=== PATIENT | female | born 1965 | race Caucasian/White ===

== ENCOUNTER 2021-10-14 08:20 | Outpatient (CLI) | payer MEDICARE, BC, SELFPAY ==
--- NOTE | 2021-10-14 10:58 | W.ANESCHARGE ---
Anesthesia Charges Start Date/Time Anesthesia Start Date: 10/14/21 Anesthesia Start Time: 10:08 Stop Date/Time Anesthesia Stop Date: 10/14/21 Anesthesia Stop Time: 10:55 Summary Emergency: No
--- NOTE | 2021-10-14 11:23 | W.ANESCHARGE ---
Anesthesia Charges Start Date/Time Anesthesia Start Date: 10/14/21 Anesthesia Start Time: 10:08 Stop Date/Time Anesthesia Stop Date: 10/14/21 Anesthesia Stop Time: 10:55 Summary Emergency: No
== END 2021-10-14 08:21 | disposition home or self-care (01) ==
LOC: OP CLINIC 08:21
PROVIDERS: Visit Provider Internal Medicine Gastroenterology
DX: K52.9 Noninfective gastroenteritis and colitis, unspecified (principal); R19.7 Diarrhea, unspecified; Z86.010 Personal history of colon polyps
CPT/HCPCS: 00813; 43239; 45380; 88305; J1642; J2704

== ENCOUNTER 2023-07-11 19:15 | Emergency (ER) | payer MEDICARE, BC, SELFPAY ==
[2023-07-11] VITALS (35 sets, daily range): BP systolic 88–157; BP diastolic 51–92; PULSE 87–101; RESP 16–18; TEMP 37.2–37.9; O2SAT 91–98; BMI 17.3
--- NOTE | 2023-07-11 19:35 | ED_ITS ---
HPI - General Adult General Time Seen by Provider: 19:35 Date Seen: 07/11/23 Chief complaint: Hypotension Stated complaint: blood pressure; severe fatigue Time Seen by Provider: 07/11/23 19:34 Source: patient, RN notes reviewed and old records reviewed Mode of arrival: ambulatory Limitations: no limitations History of Present Illness HPI narrative: This 57-year-old female presents with her for low blood pressure and weakness. She is status post kidney and pancreas transplant [address] [facility]. She states she is no longer being followed at the [facility]. She is getting her care through [facility]. She states about 3 weeks ago she was hospitalized at [facility], had EGD and colonoscopy, required blood transfusion for anemia. She states they did not find any source of bleeding. She states she was supposed to get a capsule endoscopy and has not heard from anyone. She has no appetite, has difficulty eating. She gags when she attempts to eat. She can eat sometimes small things are small amounts but overall isn't eating. She is no longer ambulatory, basically is in a wheelchair is extremely weak. She has severe peripheral neuropathy. Looking back in our records, I saw her on 05/10/2014. She was sent in by the [facility] for hypokalemia, was also found to be hypomagnesemic that night. At that time, she was suffering from autonomic neuropathy and hypotension, was getting daily normal saline transfusions. They state that they came here just to start somewhere, need to figure things out. She is cold but not having fevers. She does note some intermittent diarrhea, will depend on what she eats. The protein shakes that she take certainly do give her diarrhea. No respiratory symptoms, has some mild baseline cough but is certainly not worse. She did have colonoscopy here on 10/14/[address] De Jesus for chronic diarrhea, history of colon polyps, fecal incontinence. There were no acute findings at the time of the colonoscopy, biopsies showed normal colonic mucosa. She is no longer on Coumadin, takes Eliquis. Related Data Home Medications Medication Instructions Recorded Confirmed bupropion HCl 150 mg 24 hr tablet, 150 mg PO DAILY 07/14/22 07/11/23 extended release (Wellbutrin XL) cholecalciferol (vitamin D3) 25 25 mcg PO DAILY 07/14/22 07/14/22 mcg (1,000 unit) capsule cholestyramine (with sugar) 4 gram ea PO 07/14/22 oral powder (Questran) citalopram 20 mg tablet (Celexa) 20 mg PO DAILY 07/14/22 07/14/22 cyanocobalamin (vitamin B-12) 1,000 mcg PO DAILY 07/14/22 07/14/22 1,000 mcg capsule gabapentin 300 mg capsule 600 mg PO BID 07/14/22 07/11/23 svksdd-ipkjajdb-wlasrbm 2 cap PO Q8H 07/14/22 07/14/22 12,000-38,000-60,000 unit capsule,delayed rel (Creon) ondansetron 4 mg disintegrating 4 mg PO Q8H PRN 07/14/22 07/14/22 tablet pantoprazole 40 mg tablet,delayed 40 mg PO DAILY 07/14/22 07/11/23 release prednisone 5 mg tablet 30 mg PO DAILY 07/14/22 07/14/22 rosuvastatin 40 mg tablet 40 mg PO DAILY 07/14/22 07/11/23 sirolimus 0.5 mg tablet 0.5 mg PO DAILY 07/14/22 07/14/22 sirolimus 1 mg tablet 2 mg PO DAILY 07/14/22 07/11/23 tacrolimus 0.5 mg capsule, 0.5 mg PO BID 07/14/22 07/11/23 immediate-release (Prograf) tacrolimus 1 mg capsule, 2 mg PO Q12H 07/14/22 07/11/23 immediate-release (Prograf) topiramate 50 mg tablet (Topamax) 50 mg PO BID 07/14/22 07/11/23 warfarin 5 mg tablet (Jantoven) 5 mg PO DAILY 07/14/22 07/11/23 droxidopa 300 mg capsule 600 mg PO TID 07/11/23 07/11/23 Allergies Allergy/AdvReac Type Severity Reaction Status Date / Time hydromorphone [From Dilaudid] Allergy Mild Unknown Verified 10/14/21 13:59 Review of Systems Status of ROS: Reports: 6 or more systems reviewed and unremarkable except as noted in History and below [facility] Medical History Chronic kidney disease, stage 4 (severe) ?N18.4 - Chronic kidney disease, stage 4 (severe) (ICD-10) Diabetic ulcer of left heel associated with type 2 diabetes mellitus, with fat layer exposed ?E11.621 - Type 2 diabetes mellitus with foot ulcer (ICD-10) ?L97.422 - Non-pressure chronic ulcer of left heel and midfoot with fat layer exposed (ICD-10) Other autoimmune hemolytic anemia ?D59.19 - Other autoimmune hemolytic anemia (ICD-10) Adrenal insufficiency ?E27.40 - Unspecified adrenocortical insufficiency (ICD-10) Neurogenic orthostatic hypotension ?G90.3 - Multi-system degeneration of the autonomic nervous system (ICD-10) Acute respiratory failure with hypoxia ?J96.01 - Acute respiratory failure with hypoxia (ICD-10) Anticoagulation monitoring, INR range 2-3 ?Z79.01 - residential (current) use of anticoagulants (ICD-10) DVT of deep femoral vein ?I82.419 - Acute embolism and thrombosis of unspecified femoral vein (ICD-10) Hemolytic anemia ?D58.9 - Hereditary hemolytic anemia, unspecified (ICD-10) Acute on chronic diastolic (congestive) heart failure ?I50.33 - Acute on chronic diastolic (congestive) heart failure (ICD-10) CAD (coronary artery disease) ?I25.10 - Atherosclerotic heart disease of [place] coronary artery without angina pectoris (ICD-10) Insomnia, unspecified ?G47.00 - Insomnia, unspecified (ICD-10) Mixed hyperlipidemia ?E78.2 - Mixed hyperlipidemia (ICD-10) Restless leg syndrome ?G25.81 - Restless legs syndrome (ICD-10) Vitamin D deficiency ?E55.9 - Vitamin D deficiency, unspecified (ICD-10) Hypothyroidism ?E03.9 - Hypothyroidism, unspecified (ICD-10) Depression with anxiety ?F41.8 - Other specified anxiety disorders (ICD-10) GERD (gastroesophageal reflux disease) ?K21.9 - Gastro-esophageal reflux disease without esophagitis (ICD-10) Surgical History Hx of vitrectomy ?Z98.890 - Other specified postprocedural states (ICD-10) Hx of cardiac catheterization ?Z98.890 - Other specified postprocedural states (ICD-10) Hx of hysterectomy ?Z90.710 - Acquired absence of both cervix and uterus (ICD-10) Hx of carpal tunnel repair ?Z98.890 - Other specified postprocedural states (ICD-10) History of incisional hernia repair ?Z98.890 - Other specified postprocedural states (ICD-10) ?Z87.19 - Personal history of other diseases of the digestive system (ICD-10) History of amputation of lesser toe of left foot ?Z89.422 - Acquired absence of other left toe(s) (ICD-10) Status post simultaneous kidney and pancreas transplant ?Z94.0 - Kidney transplant status (ICD-10) ?Z94.83 - Pancreas transplant status (ICD-10) Social History Smoking Status: Former smoker What tobacco products do you use: cigarettes Smoking quit date/years: >15 years ago Do you use any of these nicotine containing products: None Second hand tobacco smoke exposure: No How often do you have a drink containing alcohol: never How often do you have six or more drinks on one occasion: Never AUDIT-C Alcohol total score: 0 Non-prescribed substance use: denies use Caffeine: Yes Are you using contraception or practicing any form of control: No Exam Const: Vital Signs, click to edit/add: Vital Signs - 24 hr 07/11/23 19:27 07/11/23 19:43 07/11/23 20:16 Temperature 99.1 F Pulse Rate Pulse Rate [Pulse Oximeter] 87 Respiratory Rate 16 Blood Pressure 92/51 L Blood Pressure [Ri ght Upper Arm] 88/55 L Pulse Oximetry 97 96 Oxygen Delivery Me thod Room Air Room Air 07/11/23 20:26 07/11/23 20:30 07/11/23 20:32 Temperature Pulse Rate 88 92 92 Pulse Rate [Pulse Oximeter] Respiratory Rate Blood Pressure 105/53 L Blood Pressure [Ri ght Upper Arm] Pulse Oximetry 93 96 96 Oxygen Delivery Me thod 07/11/23 20:33 07/11/23 20:45 07/11/23 20:48 Temperature Pulse Rate 93 95 96 Pulse Rate [Pulse Oximeter] Respiratory Rate 18 Blood Pressure 122/60 Blood Pressure [Ri ght Upper Arm] Pulse Oximetry 96 96 96 Oxygen Delivery Me thod Room Air 07/11/23 21:00 07/11/23 21:01 07/11/23 21:15 Temperature Pulse Rate 97 97 99 Pulse Rate [Pulse Oximeter] Respiratory Rate Blood Pressure 130/57 L Blood Pressure [Ri ght Upper Arm] Pulse Oximetry 93 94 97 Oxygen Delivery Me thod 07/11/23 21:16 07/11/23 21:30 07/11/23 21:32 Temperature Pulse Rate 99 96 97 Pulse Rate [Pulse Oximeter] Respiratory Rate Blood Pressure 142/63 H 134/62 Blood Pressure [Ri ght Upper Arm] Pulse Oximetry 97 95 95 Oxygen Delivery Me thod 07/11/23 21:45 07/11/23 21:47 07/11/23 22:00 Temperature Pulse Rate 92 91 90 Pulse Rate [Pulse Oximeter] Respiratory Rate Blood Pressure 120/56 L Blood Pressure [Ri ght Upper Arm] Pulse Oximetry 92 92 91 Oxygen Delivery Me thod 07/11/23 22:01 07/11/23 22:15 07/11/23 22:17 Temperature Pulse Rate 89 90 90 Pulse Rate [Pulse Oximeter] Respiratory Rate Blood Pressure 121/60 127/60 Blood Pressure [Ri ght Upper Arm] Pulse Oximetry 91 91 92 Oxygen Delivery Me thod 07/11/23 22:20 07/11/23 22:21 07/11/23 22:22 Temperature 100.2 F H Pulse Rate 90 91 91 Pulse Rate [Pulse Oximeter] Respiratory Rate 18 Blood Pressure 122/63 122/63 Blood Pressure [Ri ght Upper Arm] Pulse Oximetry 94 95 94 Oxygen Delivery Me thod 07/11/23 22:30 07/11/23 22:32 07/11/23 22:39 Temperature 99.5 F Pulse Rate 101 H 92 91 Pulse Rate [Pulse Oximeter] Respiratory Rate 18 Blood Pressure 144/73 H 144/74 H Blood Pressure [Ri ght Upper Arm] Pulse Oximetry 95 95 94 Oxygen Delivery Me thod 07/11/23 22:41 07/11/23 22:45 07/11/23 22:47 Temperature Pulse Rate 91 91 92 Pulse Rate [Pulse Oximeter] Respiratory Rate Blood Pressure 144/74 H 143/78 H Blood Pressure [Ri ght Upper Arm] Pulse Oximetry 93 95 95 Oxygen Delivery Me thod 07/11/23 23:00 07/11/23 23:02 07/11/23 23:15 Temperature Pulse Rate 93 93 94 Pulse Rate [Pulse Oximeter] Respiratory Rate Blood Pressure 148/80 H Blood Pressure [Ri ght Upper Arm] Pulse Oximetry 96 96 95 Oxygen Delivery Me thod 07/11/23 23:24 07/11/23 23:33 Temperature 99.0 F 99.0 F Pulse Rate 92 93 Pulse Rate [Pulse Oximeter] Respiratory Rate 18 18 Blood Pressure 155/80 H 157/92 H Blood Pressure [Ri ght Upper Arm] Pulse Oximetry 98 96 Oxygen Delivery Me thod This 57-year-old female was brought back by wheelchair, she is alert, interactive, no apparent distress. Affect is somewhat flat but she does not strike me as depressed. Pupils are equal and round, sclera clear, conjugate gaze. Symmetrical facial function. Oropharynx slightly dry but no abnormality noted of mucosa. Speech is normal. Neck is supple, no adenopathy noted, no thyromegaly masses or nodules. She is able to sit up, lungs are clear, somewhat distant breath sound but overall no wheezing or crackles, no tachypnea. CV regular rate and rhythm, I do not hear murmur, normal S1-S2, no S3-S4. Abdomen is soft, nontender, nondistended, no organomegaly. Her right ankle is larger than her left, it seems to be more thickened and this is not pitting edema. They state that she has problems with lower extremity edema. She has trace pretibial edema left maybe 1+ right at this time on her lower extremities. Documenting provider has reviewed patient's vital signs: yes Course Course ED Course: This 57-year-old female has chronic complex medical history and ongoing problems. Did discuss with them that we are small hospital with out advanced support like they might need. She has long-term history of hypotension, will initiate a L of IV fluids over 2 hours. She also has a history of some congestive heart failure, need to watch how much fluids we give her. I do know she was on Florinef in the past. We certainly will check her hemoglobin, make sure she is not anemic. If she is anemic again, she is already beyond the capacity of what we can provide her here as she has already had an EGD and colonoscopy. We may need to consider transfer if we find significant abnormalities. She very well may have multiple issues that we may not be able to fix. We have discussed this. I can start with full complement of basic labs, guide therapy accordingly. Reevaluation(s) Time of Reevaluation #1: 21:04 Reevaluation #1: Reviewed with her that her hemoglobin is 5.8. Did talk to patient about transfusing red blood cells. I did briefly speak with our hospitalist, her creatinine on June 13 was 0.93. Her hemoglobin was 9.4 at that time. Thus, she has worsening anemia again, acute kidney injury in a transplanted kidney. She is aware that we are going to need transfer. Did have our lab come down to do type and cross for a unit packed red blood cells. Time of Reevaluation #2: 22:28 Reevaluation #2: Patient does have a temperature 100.2? F. she does appear to have some contamination in her urinalysis but there is enough concern for UTI there that I will initiate 1 g IV Rocephin. Will give her some Tylenol for fever control. Awaiting bed placement at [facility]. Her blood pressure has significantly improved just with 1 L IV fluids. Will continue to monitor. Consultations Consultation #1: Did speak with Dr. Rubin the hospitalist from [facility]. She will accept care. Did specifically review with her that there is a listed history of hemolytic anemia. There will likely be a wait to transfer. [facility] has the shortness wait time at this point. Will initiate blood transfusion in the interim if patient is still here. Time: 21:39 Vital Signs Vital signs: Initial Vital Signs Temperature 99.1 F 07/11/23 19:27 Temperature Source Oral 07/11/23 19:27 Pulse Rate 87 07/11/23 19:27 Respiratory Rate 16 07/11/23 19:27 Blood Pressure 88/55 L 07/11/23 19:27 Blood Pressure Mean 66 L 07/11/23 19:27 Blood Pressure Position Supine 07/11/23 19:27 Pulse Oximetry 97 07/11/23 19:27 Oxygen Delivery Method Room Air 07/11/23 19:27 Vital Signs Temperature 99.1 F 07/11/23 19:27 Pulse Rate 87 07/11/23 19:27 Respiratory Rate 16 07/11/23 19:27 Blood Pressure 88/55 L 07/11/23 19:27 Pulse Oximetry 97 07/11/23 19:27 Oxygen Delivery Method Room Air 07/11/23 19:27 Temperature 99.0 F 07/11/23 23:33 Pulse Rate 93 07/11/23 23:33 Respiratory Rate 18 07/11/23 23:33 Blood Pressure 157/92 H 07/11/23 23:33 Pulse Oximetry 96 07/11/23 23:33 Oxygen Delivery Method Room Air 07/11/23 20:48 Medications Administered Medications: Generic Name Dose Route Start Last Admin Trade Name Freq PRN Reason Stop Dose Admin Sodium Chloride 250 ml 07/11/23 21:02 07/11/23 22:20 0.9 % Sodium Chloride 250 Ml IV 07/12/23 23:59 250 ml ONCE PRN Administration Discontinued Medications Generic Name Dose Route Start Last Admin Trade Name Freq PRN Reason Stop Dose Admin Acetaminophen 650 mg 07/11/23 22:29 07/11/23 23:13 Acetaminophen 325 Mg Tablet PO 07/11/23 22:30 650 mg ONCE ONE Administration Sodium Chloride 1,000 mls @ 500 mls/hr 07/11/23 19:44 07/11/23 22:15 0.9 % Sodium Chloride 1000 Ml IV 07/11/23 21:43 Infused .Q2H LAURA Infusion Ceftriaxone Sodium 1 gm/ 100 mls @ 200 mls/hr 07/11/23 22:27 07/11/23 23:14 Sodium Chloride IVPB 07/11/23 22:28 200 mls/hr ONCE ONE Administration Medical Decision Making Lab Data Lab results reviewed: Yes I reviewed the patient's lab results Labs: Lab Results 07/11/23 07/11/23 07/11/23 Range/Units 19:50 20:00 21:07 WBC 13.39 H (4.50-11.00) K/uL RBC 2.15 L (4.00-5.20) m/uL Hgb 5.8 L* (12.0-16.0) gm/dL Hct 18.3 L (33.0-51.0) % MCV 85 (80-100) fL MCH 27 (26-34) pg MCHC 32 (32-36) gm/dL RDW Coeff of Juanjo 18.8 H (11.5-15.5) % Plt Count 261 (140-440) K/uL Neut % (Auto) 79.0 H (42.0-72.0) % Lymph % (Auto) 6.8 L (20-44) % Anson % (Auto) 13.1 H (0.0-11.0) % Eos % (Auto) 0.0 (0.0-7.0) % Baso % (Auto) 0.3 (0.0-3.0) % Neut # (Auto) 10.60 H (1.7-7.0) K/uL Lymph # (Auto) 0.90 (0.90-2.90) K/uL Anson # (Auto) 1.80 H (0.00-0.90) K/UL Eos # (Auto) 0.00 (0.00-0.50) K/uL Baso # (Auto) 0.00 (0.00-0.30) K/uL Abs Immat Gran (auto) 0.10 (0.00-0.30) K/uL Imm/Tot Granulo (auto) 0.8 % Sodium 141 (135-149) mmol/L Potassium 4.2 (3.6-5.1) mmol/L Chloride 113 (96-114) mmol/L Carbon Dioxide 21 (20-32) mmol/L Anion Gap 7 (7-15) mEq/L BUN 49 H (7-30) mg/dL Creatinine 2.1 H (0.5-1.5) mg/dL Estimated Creat Clear 22.65 Estimated GFR 27 ml/min Glucose 97 (60-115) mg/dL Lactate 1.7 (0.5-1.9) mmol/L Calcium 9.4 (8.4-10.6) mg/dL Magnesium 1.9 (1.5-2.6) mg/dL Total Bilirubin 0.7 (0.1-1.5) mg/dL Direct Bilirubin 0.1 (0.0-0.5) mg/dL AST 40 H (12-35) U/L ALT 41 H (4-35) U/L Alkaline Phosphatase 80 (40-150) U/L Troponin I 0.03 (0.01-0.04) ng/mL C-Reactive Protein 17.0 H (0.5-1.0) mg/dL NT-Pro-B Natriuret Pep 4860 pg/mL Total Protein 6.9 (6.0-8.3) g/dL Albumin 3.4 (3.3-5.0) g/dL Lipase 83 (23-300) U/L Procalcitonin 1.78 H (<0.50) ng/mL Urine Color Yellow (Yellow) Urine Appearance Cloudy A (Clear) Urine pH 5.5 (5.0-8.5) Ur Specific [place] 1.025 (1.000-1.030) Urine Protein 3+ A (Negative) Urine Glucose (UA) Negative (Negative) Urine Ketones Trace A (Negative) Urine Blood 1+ A (Negative) Urine Nitrite Negative (Negative) Urine Bilirubin 1+ A (Negative) Urine Urobilinogen 0.2 (0.2-1.0) Ur Leukocyte Esterase 3+ A (Negative) Urine RBC 0-2 (0-2) Urine WBC 50-100 A (0-5) Urine WBC Clumps Few A (None) Ur Squamous Epith Cells Many A (None-Few) Amorphous Sediment Few A (None) Urine Bacteria Many A (None) Blood Type A Negative Antibody Screen NEGATIVE Crossmatch (AHG) See Detail ECG Data Attestation: I personally reviewed and interpreted this ECG as follows: (Normal sinus rhythm, 88 beats per minute. No acute ischemia, no infarct. QT corrected 464 milliseconds.) Prior ECG tracings: not available for review Discharge Plan Discharge Clinical Impression: Acute kidney injury, Status post kidney transplant Anemia Qualifiers: Anemia type: unspecified type Qualified Code(s): D64.9 - Anemia, unspecified UTI (urinary tract infection) Qualifiers: Urinary tract infection type: acute cystitis Hematuria presence: without hematuria Qualified Code(s): N30.00 - Acute cystitis without hematuria Patient Disposition: [facility] Discharge Location: [facility]
[2023-07-11 20:06] LABS: Basophils Percent Auto 0.3 % (0.0-3.0); Hematocrit 18.3 % (33.0-51.0); Immature Granulocytes Pct Auto 0.8 %; Lactate* 1.7 mmol/L (0.5-1.9); Lymphocytes Percent Auto 6.8 % (20-44); Mean Corpuscular HGB Conc 32 gm/dL (32-36); Mean Corpuscular Hemoglobin 27 pg (26-34); Mean Corpuscular Volume 85 fL (80-100); Monocytes Percent Auto 13.1 % (0.0-11.0); Platelet Count* 261 K/uL (140-440); RDW Coefficient of Variation % 18.8 % (11.5-15.5); Red Blood Count 2.15 m/uL (4.00-5.20); White Blood Count* 13.39 K/uL (4.50-11.00)
[2023-07-11] MEDS: 0.9 % SODIUM CHLORIDE 1000 ml 1,000 ML 500 ML IV (20:15)
[2023-07-11 20:16] LABS: Appearance Urine Cloudy (Clear); Bilirubin Urine 1+ (Negative); Blood Urine 1+ (Negative); Color Urine Yellow (Yellow); Glucose Urine Negative (Negative); Ketones Urine Trace (Negative); Leukocyte Esterase Urine 3+ (Negative); Nitrite Urine Negative (Negative); Protein Urine 3+ (Negative); Specific Gravity Urine 1.025 (1.000-1.030); Urobilinogen Urine 0.2 (0.2-1.0); pH Urine 5.5 (5.0-8.5)
--- OUTSIDE RECORDS SUMMARY | 2023-07-11 20:26 | XMS_ITS | Data Portability ---
Author Name Unknown Address [address] [place] [address] Phone [phone] Organization [facility], _[place] Address [address] [facility] [address] [place] [address] Assessment No assessment recorded. Plan of Treatment Reminders Order Date Submit Date Provider Last Modified By Organization Details Last Modified Time Details Appointments None recorded. Lab urinalysis, dipstick 2022 023 [id number] [facility], [facility]5 [facility], [address], [address], 16:11:55 Referral None recorded. Procedures None recorded. Surgeries None recorded. Imaging None recorded. Medication Orders sulfamethox azole 400 mg-trimetho prim 80 mg tablet 2022 023 [facility], [address] [place], [place], [id number], 17:27:36 Patient TargetsNo targets recorded. Patient InstructionsNo instructions recorded. Reason for Referral None Reported. Results Created Date Observation Date Name Description Value Unit Range Abnormal Flag LastModifiedBy Organization Detail LastModifiedTime 11/25/1911/24/2022 urina lysis , dipst ick Color-Status Dark Yellow Not Available [place] [id number] [facility] [address], [address], 11/24/2022 16:10:18 11/25/19 23 11/24/2022 urina lysis , dipst ick Clarity-Stat us Clear Not Available [address], [place], [address], 11/24/2022 16:10:18 11/25/19 23 11/24/2022 urina lysis , dipst ick Glucose-Stat us Negati ve Not Available [address], [place], [address], 11/24/2022 16:10:18 11/25/19 23 11/24/2022 urina lysis , dipst ick Bilirubin-St atus Negati ve Not Available [address], [place], [address], 11/24/2022 16:10:18 11/25/19 23 11/24/2022 urina lysis , dipst ick Ketones-Stat us Negati ve Not Available [address], [place], [address], 11/24/2022 16:10:18 11/25/19 23 11/24/2022 urina lysis , dipst ick Sp [place]-Stat us >=1.03 0 Not Available [address], [place], [address], 11/24/2022 16:10:18 11/25/19 23 11/24/2022 urina lysis , dipst ick pH-Status 5.5 Not Available [address], [place], [address], 11/24/2022 16:10:18 11/25/19 23 11/24/2022 urina lysis , dipst ick Protein-Stat us >=9.0 Not Available [address], [place], [address], 11/24/2022 16:10:18 11/25/19 23 11/24/2022 urina lysis , dipst ick Urobilinogen -Status 0.2 Not Available [address], [place], [address], 11/24/2022 16:10:18 11/25/19 23 11/24/2022 urina lysis , dipst ick Nitrates-Sta tus negati ve Not Available [address], [place], [address], 11/24/2022 16:10:18 11/25/19 23 11/24/2022 urina lysis , dipst ick Blood-Status Trace Not Available [address], [place], [address], 11/24/2022 16:10:18 11/21/19 23 08/23/2022 CT, abdom en + pelvi s, w/o contr ast No observ ation record ed. Not Available 11/20/2022 10:59:26 12/20/19 23 11/24/2022 bladd er scan (PROC ) No observ ation record ed. BARCODE Not Available 12/19/2022 09:38:29 Result Notes None recorded. Problems Name Status Onset Date Resolution Date Notes Provider Name and Address Organization Details Recorded Time Recurrent urinary tract infection Active 3 Samson Bridges MD [address] [facility],[address], [place], [address], [facility] 11/24/2022 17:33:45 Problem Notes None recorded. Procedures Surgical History Date Name Laterality Status Provider Name and Address Organization Details Recorded Time Bladder Scan completed Chelsey alvarez [facility] 11/24/2022 16:10:10 Hernia Repair completed Chelsey alvarez [facility] 11/24/2022 16:09:08 Colonoscopy completed Chelsey alvarez [facility] 11/24/2022 16:09:18 Imaging Results Imaging Date Name Status LastModified by Organiz ation Details LastModified Time 08/23/2022 CT, abdomen + pelvis, w/o contrast completed Information not available 11/20/2022 10:59:26 11/24/2022 bladder scan (PROC) completed BARCODE Information not available 12/19/2022 09:38:29 Procedure Notes None recorded. Medical Equipment None Reported. Allergies No known drug allergies Medications Name Sig Start Date Stop Date Status Note LastModified by Organization Details LastModified Time amoxicillin 500 mg capsule 11/24 completed Not Available Not Available Not Available sulfamethoxa zole 400 mg-trimethop rim 80 mg tablet Take 1 tablet every day by oral route. active Not Available Not Available No t Available valacyclovir 1 gram tablet active Not Available Not Available Not Available prednisone 5 mg tablet 11/24 completed Not Available Not Available Not Available sulfamethoxa zole 800 mg-trimethop rim 160 mg tablet 11/24 completed Not Available Not Available Not Available acetaminophe n 500 mg tablet 11/24 completed Not Available Not Available Not Available amoxicillin 500 mg tablet TAKE 2 TABLETS BY MOUTH TWICE DAILY FOR 10 DAYS 11/24 completed Not Available Not Available Not Available sirolimus 1 mg tablet active Not Available Not Available No t Available colesevelam 625 mg tablet active Not Available Not Available Not Available doxycycline monohydrate 100 mg capsule 11/24 completed Not Available Not Available Not Available cephalexin 500 mg capsule 11/24 completed Not Available Not Available Not Available pantoprazole 40 mg tablet,delay ed release active Not Available Not Available N ot Available prednisone 50 mg tablet 11/24 completed Not Available Not Available Not Available gabapentin 300 mg capsule active Not Available Not Available Not Available cefuroxime axetil 500 mg tablet 11/24 completed Not Available Not Available Not Available levofloxacin 750 mg tablet 11/24 completed Not Available Not Available Not Available ondansetron 4 mg disintegrati ng tablet 11/24 completed Not Available Not Available Not Available tacrolimus 1 mg capsule, immediate-re lease active Not Available Not Available Not Available tacrolimus 0.5 mg capsule, immediate-re lease active Not Available Not Available Not Available oxycodone 5 mg tablet 11/24 completed Not Available Not Available Not Available cholestyrami ne (with sugar) 4 gram oral powder 11/24 completed Not Available Not Available Not Available rosuvastatin 40 mg tablet active Not Available Not Available Not Available bupropion HCl XL 150 mg 24 hr tablet, extended release active Not Available Not Available Not Available Jantoven 5 mg tablet active Not Available Not Available No t Available topiramate 50 mg tablet active Not Available Not Available Not Available nitrofuranto in monohydrate/ macrocrystal s 100 mg capsule 11/24 completed Not Available Not Available Not Available [facility] (diphenhydra mine) 12.5 mg/5 mL oral liquid active Not Available Not Available Not Available Creon 12,000-38,00 0-60,000 unit capsule,isreal yed release 11/24 completed Not Available Not Available Not Available Creon 24,000-76,00 0-120,000 unit capsule,isreal yed release active Not Available Not Available Not Available Senexon-S 8.6 mg-50 mg tablet 11/24 completed Not Available Not Available Not Available sirolimus 0.5 mg tablet active Not Available Not Available Not Available Eliquis 5 mg tablet active Not Available Not Available Not Available droxidopa 300 mg capsule 11/24 completed Not Available Not Available Not Available Zenpep 25,000 unit-79,000 unit-105,000 unit capsule,isreal yed release active Not Available Not Available Not Available Vitals Date Recorded Body height Body mass index (BMI) Body weight Provider Name and Address Organization Details Last Updated DateTime 11/24/2022 167.64 cm 20.7 kg/m2 95873.82 g Chelsey Loaiza [facility] 11/24/2022 16:06:20 Social History Question Answer Notes LastModified by Organizat ion Details LastModified Time Tobacco Smoking Status Former Smoker [facility] [place] 11/24/2022 16:08:53 What Is Your Level Of Alcohol Consumption? None [email or web address] Information not available 11/24/2022 What Is Your Level Of Caffeine Consumption? None [email or web address] Information not available 11/24/2022 When Did You Quit Smoking? 16+yearssin cristina saeed [email or web address] Information not available 11/24/2022 What Was The Date Of Your Most Recent Tobacco Screening? 11/24/2022 [email or web address] Information not available 11/24/2022 Do You Use Any Illicit Or Recreational Drugs? No [email or web address] Information not available 11/24/2022 Has Tobacco Cessation Counseling Been Provided? No [email or web address] Information not available 11/24/2022 Sex: Female Functional Status None recorded. Mental Status None recorded. Family History Relationship Description Onset Age of this Age Resolved Age Notes Father No current problems or disability Mother No current problems or disability Medical History Condition Response Other N High Blood Pressure N Kidney Stones N Depression N Lung Disease N GERD/Acid Reflux N Sexually Transmitted Infection N Cancer N High Cholesterol N Diabetes N Bleeding Disorder N Heart Disease N Gynecological HistoryNo gynecological history recorded. Obstetrics History GPAL:G 0 P 0 0 0 0 Immunizations Vaccine Type Date Status Provider Name and Address Organization Details Recorded Time influenza, injectable, quadrivalent 12/17/2018 completed Tiffany alvarez [facility] 01/20/2023 17:20:22 influenza, recombinant, quadrivalent,injecta ble, preservative free 02[facility]12[facility]2021 [facility] 17:20:22 COVID-19, mRNA, LNP-S, PF, 30 mcg/0.3 mL dose 05/19/2020 completed Tiffany alvarez [facility] 01/20/2023 17:20:22 COVID-19, mRNA, LNP-S, PF, 30 mcg/0.3 mL dose 06/09/2020 completed Tiffany alvarez [facility] 01/20/2023 17:20:22 COVID-19, mRNA, LNP-S, PF, 30 mcg/0.3 mL dose 02/12/2021 completed Tiffany alvarez [facility] 01/20/2023 17:20:22 pneumococcal conjugate PCV 7 12/16/2004 [facility] 17:20:22 pneumococcal polysaccharide PPV23 07/07/2012 completed Tiffany Montgomeryre null, [facility] 01/20/2023 17:20:22 pneumococcal polysaccharide PPV23 10/02/2011 completed Tiffany Montgomeryre null, [facility] 01/20/2023 17:20:22 Tdap 04/08/2019 completed Tiffany Robb null, [facility] 01/20/2023 17:20:23 Tdap 05/22/2014 completed Tiffany Montgomeryre null, [facility] 01/20/2023 17:20:23 Pneumococcal conjugate PCV 13 10/03/2015 completed Tiffany Robb null, [facility] 01/20/2023 17:20:23 Influenza, seasonal, injectable 04/30/2012 completed Tiffany Robb null, [facility] 01/20/2023 17:20:23 Influenza, seasonal, injectable 12/02/2006 [facility] 17:20:23 Influenza, seasonal, injectable 01/11/1999 [facility] 17:20:23 Novel [id number] 01/11/2009 [facility] 17:20:23 Td (adult), 2 Lf tetanus toxoid, preservative free, adsorbed 09/23/2002 [facility] 17:20:23 Hib (PRP-T) 10/03/2015 [facility] 17:20:23 influenza, injectable, quadrivalent, preservative free 03/12/2020 [facility] 17:20:23 influenza, injectable, quadrivalent, preservative free 01/21/2022 [facility] 17:20:23 Past Encounters Encounter ID Performer Location Encounter Start Date Encounter Closed Date Diagnosis/Indication Diagnosis SNOMED-CT Code [id number] Samson Bridges MD [facility] [address] [facility],[address] [place] [address] 11/24/2022 15:54:01 11/28/2022 14:13:38 Recurrent urinary tract infection [id number] Health Concerns Section Related Observation LastModified by Organization Detai ls LastModified Time None Recorded Concern Status LastModified by Organization Details LastModified Time None Recorded Advance Directives Directive None Recorded Payers Encounter Date Sequence Insurance Name Policy Number Policy Lepe Covered Member ID Lepe Member ID Guarantor Name 11/24/2022 1 [place]: [employer] Roxanna Monzon [id number] Roxanna Monzon 11/24/2022 2 [place] Socrates Monzon [id number] Roxanan Monzon Notes Date Note Type Note Provider Name and Address Organization Details Recorded Time 11/24/2022 text/html HPI Notes: New patient referred for recurrent urinary tract infections. 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 She is on sirolimus and tacrolimus. Her buck[place] kidneys are intact. She was having about 1 UTI per year but more recently had several positive cultures in 2021 and 2022. I reviewed the most recent clinic notes from Dr. Marley as well as multiple cultures from the past 2 years showing primarily Klebsiella and E. coli. These appear to be the same strains of bacteria with the same resistance patterns. She had multiple short courses of antibiotics including Bactrim and cefuroxime for 5 to 7 days. I reviewed the most recent CT scan abdomen and pelvis from 08/23/2022 showing atrophic buck[place] kidneys with extensive vascular calcifications but no stones or obstruction. Her transplanted kidney in the left pelvis appears normal with no hydronephrosis. Bladder appears large volume but bladder scan today shows that she empties completely. Urinalysis today trace blood, otherwise negative. Her primary UTI symptoms have been frequency, urgency and dysuria but she is not symptomatic at the time, having recently completed another course of antibiotics. Samson Bridges MD [address] [facility],[address], [place], [address], [facility] 11/24/2022 17:34:18 OBGyn Episode No OBEpisode recorded.
[2023-07-11 20:28] LABS: Albumin* 3.4 g/dL (3.3-5.0); Chloride* 113 mmol/L (96-114)
[2023-07-11 20:29] LABS: Potassium* 4.2 mmol/L (3.6-5.1); Sodium* 141 mmol/L (135-149)
[2023-07-11 20:31] LABS: Anion Gap 7 mEq/L (7-15); Aspartate Amino Transferase* 40 U/L (12-35); Bilirubin Direct* 0.1 mg/dL (0.0-0.5); Bilirubin Total* 0.7 mg/dL (0.1-1.5); Carbon Dioxide* 21 mmol/L (20-32); Creatinine* 2.1 mg/dL (0.5-1.5); Est. Creatinine Clearance* 22.65; Estimated Glomerular Filt Rate 27 ml/min
[2023-07-11 20:32] LABS: Alanine Aminotransferase* 41 U/L (4-35); Alkaline Phosphatase* 80 U/L (40-150); Blood Urea Nitrogen* 49 mg/dL (7-30); Calcium* 9.4 mg/dL (8.4-10.6); Glucose* 97 mg/dL (60-115); Lipase* 83 U/L (23-300); Magnesium* 1.9 mg/dL (1.5-2.6); Total Protein* 6.9 g/dL (6.0-8.3)
[2023-07-11 20:37] LABS: RBC Urine 0-2 (0-2); WBC Urine 50-100 (0-5)
[2023-07-11 20:38] LABS: Amorphous Sediment Urine Few; Bacteria Urine Many; Squamous Epithelial Cell Urine Many (None-Few); WBC Clumps Urine Few
[2023-07-11 20:44] LABS: Troponin I* 0.03 ng/mL (0.01-0.04)
[2023-07-11 20:49] LABS: Procalcitonin* 1.78 ng/mL (<0.50)
[2023-07-11 21:10] LABS: NT Pro B Type NatriureticPept* 4860 pg/mL
[2023-07-11 21:23] LABS: Hemoglobin* 5.8 gm/dL (12.0-16.0); Slide Review Reflex No
[2023-07-11] MEDS: 0.9 % SODIUM CHLORIDE 250 ml IV (22:20)
[2023-07-11] MEDS: ACETAMINOPHEN 325 MG TABLET 650 MG PO (23:13)
[2023-07-11] MEDS: cefTRIAXone 1 GM in 0.9 % SODIUM CHLORIDE Mini-bag 100 ML IVPB (23:14)
--- NOTE | 2023-07-12 10:39 | ED.NURSE ---
Received results from lab: blood culture, anaerobic bottle: gram negative rods. Yumi Turpin RN notified of results at [phone].
--- NOTE | 2023-07-12 12:06 | ED.NURSE ---
Yumi Turpin RN notified of second set of blood cultures, anaerobic bottle also resulted with gram negative rods.
== END 2023-07-11 23:42 | disposition short-term general hospital (02) ==
PROVIDERS: Emergency Provider Family Medicine; PCP Family Medicine
DX: D64.9 Anemia, unspecified (principal); N30.00 Acute cystitis without hematuria; N17.9 Acute kidney failure, unspecified
CPT/HCPCS: 36415; 36430; 80053; 81001; 82248; 83605; 83690; 83735; 83880; 84145; 84484; 85025; 86140; 86850; 86900; 86901; 86922; 87040; 87086; 87186; 93005; 94761; 96365; 99284; 99285; A9270; J0696; J7030; J7050; P9016

== ENCOUNTER 2023-07-11 23:17 | Outpatient (CLI) | payer MEDICARE, BC, SELFPAY | END 2023-07-11 23:18 | disposition home or self-care (01) | LOC: AMB 07-12 06:28 | PROVIDERS: PCP Family Medicine; Visit Provider Family Medicine | DX: N30.00 Acute cystitis without hematuria (principal); D64.9 Anemia, unspecified; N17.9 Acute kidney failure, unspecified; Z94.0 Kidney transplant status | CPT/HCPCS: A0425; A0427 ==

== ENCOUNTER 2023-09-25 10:00 | Outpatient (RCR) | payer MEDICARE, BC, SELFPAY ==
[2023-08-25 10:40] VITALS: BP 98/50; PULSE 81; RESP 16; TEMP 36.6; O2SAT 98
[2023-08-25 11:14] VITALS: BP 98/50; PULSE 81; RESP 16; TEMP 36.6; O2SAT 98
[2023-08-25 11:39] VITALS: BP 94/55; PULSE 83; RESP 14; TEMP 36.7; O2SAT 98
[2023-08-25 12:24] VITALS: BP 118/69; PULSE 76; RESP 16; TEMP 36.9; O2SAT 98
[2023-08-25 13:12] VITALS: BP 127/72; PULSE 78; RESP 16; TEMP 36.9; O2SAT 99
[2023-08-25 14:22] VITALS: BP 155/66; PULSE 78; RESP 14; TEMP 36.9; O2SAT 98
--- NOTE | 2023-08-31 15:29 | ONC.NURNOTE ---
Received call from pt asking for a blood transfusion, citing Hgb 7.5 at [facility] visit today and she is going out of town over the holiday later this week. Gasket Winder [facility]Erica reviewed with pt that no transfusion unless under 7.0; Dr. Anne wants to watch the trend of her Hgb and is planning a Bone Marrow Bx soon. Pt to have labs rechecked next week. Verbalizes understanding.
[2023-09-02 09:16] VITALS: BP 84/44; PULSE 76; RESP 16; TEMP 37.2; O2SAT 98
[2023-09-02 09:34] VITALS: BP 84/44; PULSE 76; RESP 16; TEMP 37.2; O2SAT 98
[2023-09-02] MEDS: 0.9 % SODIUM CHLORIDE 250 ml IV (09:38)
[2023-09-02] MEDS: SODIUM CHLORIDE 0.9 % (FLUSH) 10 ML SYRINGE IVF (09:38)
[2023-09-02 09:51] VITALS: BP 121/61; PULSE 75; RESP 16; TEMP 37.2; O2SAT 98
[2023-09-02 10:35] VITALS: BP 126/68; PULSE 75; RESP 16; TEMP 37.2; O2SAT 99
[2023-09-02 11:27] VITALS: BP 156/78; PULSE 75; RESP 16; TEMP 36.5; O2SAT 98
[2023-09-02 12:33] VITALS: BP 157/82; PULSE 77; RESP 16; TEMP 37; O2SAT 96
[2023-09-16] MEDS: SODIUM CHLORIDE 0.9 % (FLUSH) 10 ML SYRINGE IVF (08:15)
[2023-09-16] MEDS: 0.9 % SODIUM CHLORIDE 250 ml IV (08:15)
[2023-09-16 08:16] VITALS: BP 134/66; PULSE 83; RESP 16; TEMP 36.9; O2SAT 98
[2023-09-16 08:32] VITALS: BP 134/66; PULSE 83; RESP 16; TEMP 36.9; O2SAT 98
[2023-09-16 08:50] VITALS: BP 125/64; PULSE 79; RESP 16; TEMP 37.3; O2SAT 98
[2023-09-16 09:35] VITALS: BP 170/80; PULSE 84; RESP 16; TEMP 37.3; O2SAT 98
--- NOTE | 2023-09-16 09:57 | ONC.NURNOTE ---
Blood pressure increased from 134/66 start of infusion to 170/80 1 hour into infusion. Patient denies headache, blurred vision, shortness of breath, rigors, fever, back pain. All other vitals within normal limits. Patient stated My blood pressure always goes up with the transfusion. Contacted SONIA Maldonado at [facility] to let her know what patients blood pressure is currently. Okay to continue with transfusion and will discuss with Liliya Vizcaino CNP and let us know if we should do anything else at this time. Reflexologist requested standing order that states okay to proceed with transfusion if no other symptoms accompany the increase in Blood Pressure during Blood transfusion.
[2023-09-16 10:18] VITALS: BP 180/80; PULSE 85; RESP 16; TEMP 37.2; O2SAT 98
--- NOTE | 2023-09-16 10:36 | ONC.NURNOTE ---
Recieved a standing order from Dr. Anne stating Ok to proceed with blood transfusion with hypertension as long as patient is not having symptoms. Continued monitoring. Please run transfusion at a slower rate that 2 hours per unit. Patient denies symptoms to accompany the high BP.
[2023-09-16 11:18] VITALS: BP 166/70; PULSE 83; RESP 16; TEMP 37.6; O2SAT 97
[2023-09-25] VITALS (7 sets, daily range): BP systolic 118–168; BP diastolic 60–75; PULSE 78–86; RESP 14–16; TEMP 36.3–37; O2SAT 96–98
== END 2024-02-20 23:59 | disposition home or self-care (01) ==
LOC: CCIC 10:00
PROVIDERS: PCP Family Medicine; Referring Provider Family Medicine; Visit Provider Clinical Nurse Specialist
DX: D61.9 Aplastic anemia, unspecified (principal)
CPT/HCPCS: 36415; 36430; 86850; 86900; 86901; 86922; J7050; P9016

== ENCOUNTER 2024-10-13 08:49 | Emergency (ER) | payer MEDICARE, BC, SELFPAY ==
--- OUTSIDE RECORDS SUMMARY | 2024-09-07 09:30 | XMS_ITS | Encounter Summary ---
Author Organization [facility] Address [address] [place] [address] Care Team Providers Care Morgue Librarian Name Role Phone Robert Marley MD Primary Care Provider [phone] Tayo Lacey MD Unavailable [phone] Christopher Quiroga MD Unavailable Lance Simpson-C Unavailable [phone] Sherri Kingston Unavailable [phone] Delvin Bob MD Unavailable Love Hernandez-C Unavailable Love Hernandez-C Unavailable Gordy Nickerson MD Unavailable [phone] Everardo Grant MD Unavailable Rey Billings MD Unavailable [phone] Conrado Evans MD Unavailable [phone] Delvin Lopez MD Unavailable [phone] Reason for Visit * Reason Comments Blood Draw Encounter Details Date Type Department Care Team (Late st Contact Info) Description 09/07/2024 9:30 AM CDT Lab [address] [place] [address] [facility] [place] [address] Conrado Evans MD 717 [facility] 353 [facility] [address] [place] [address] EBV (Patrick-Alcy virus) viremia; Pancreas transplanted (H); Kidney replaced by transplant; Type 1 diabetes mellitus with diabetic polyneuropathy (H) Social History Tobacco Use Types Packs/Day Years Used Date Smoking Tobacco: Former Cigarettes Passive Smoke Exposure: Never Smokeless Tobacco: Never Alcohol Use Standard Drinks/Week Comments No 0 (1 standard drink = 0.6 oz pur e alcohol) PHQ-2 Answer Date Recorded PHQ-2 Score 2 11/16/2023 Adolescent Education Answer Date Record ed Getting School Help Needed Not on file 11/22 Comments No Sex and Gender Information Value Date Recorded Sex Assigned at Not on file Legal Sex Female 3:26 AM CHIPPER Gender Identity Not on file Sexual Orientation Not on file Occupation Industry Job Start Date Job End Date Not on file Not on file Not on file Not on file documented as of this encounter Progress Notes * Yadira Boyle CMA - 09/07/2024 9:30 AM CDT Flatbed Truck Driver Note: Roxanna Monzon presents today for blood draw. Patient seen by provider today: No. Office Copy Selector present during visit today: Not Applicable. Concerns: No Concerns. Procedure: Lab draw site: rt inner forearm, Needle type: butterfly, Gauge: 23. Post Assessment: Labs drawn without difficulty: Yes. Discharge Plan: Departure Mode: Wheelchair. Face to Face Time: 10. Yadira Boyle CMA documented in this encounter Plan of Treatment Upcoming Encounters Date Type Department Care Team (Late st Contact Info) Description 10/25/2024 10:00 AM CDT Virtual Visit 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) Kidney replaced by transplant PATRICK LACY VIRUS QUANTITATIVE PCR, PLASMA Routine 09/07/2024 9:51 AM CDT EBV (Patrick-Lacy virus) viremia TACROLIMUS BY TANDEM MASS SPECTROMETRY Routine 09/07/2024 9:51 AM CDT 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) Kidney replaced by transplant SIROLIMUS BY TANDEM MASS SPECTROMETRY Routine 09/07/2024 9:51 AM CDT 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) Kidney replaced by transplant LIPID REFLEX TO DIRECT LDL PANEL Routine 09/07/2024 9:51 AM CDT 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) Kidney replaced by transplant LIPASE Routine 09/07/2024 9:51 AM CDT 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) Kidney replaced by transplant HEPATIC FUNCTION PANEL Routine 09/07/2024 9:51 AM CDT 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) Kidney replaced by transplant HEMOGLOBIN A1C Routine 09/07/2024 9:51 AM CDT 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) Kidney replaced by transplant Type 1 diabetes mellitus with diabetic polyneuropathy (H) AMYLASE Routine 09/07/2024 9:51 AM CDT 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 The results should be integrated into the clinical context for interpretation. Total Protein Urine mg/mg Creat 2.20(H) 0.00 - 0.20 mg/mg Cr 09/07/2024 11:10 AM CDT LABORATORY Creatinine Urine mg/dL 130.8 mg/dL 09/07/2024 11:10 AM CDT LABORATORY Comment:The reference ranges have not been established in urine creatinine. The results should be integrated into the clinical context for interpretation. Urine URINE SPECIMEN OBTAINED BY CLEAN CATCH PROCEDURE / Unknown Non-blood Collection / Unknown 09/07/2024 9:52 AM CDT 09/07/2024 10:04 AM CDT us Conrado Evans MD LAB - URINE ORDERABLES F inal Result LABORATORY [facility] [address] [facility] Lab (1st floor, no room number) [place] [address], [facility] * (ABNORMAL) Basic metabolic panel (09/07/2024 9:51 AM CDT) Pathologist [facility] Sodium 143 135 - 145 mmol/L 09/07/2024 1:38 PM CDT LABORATORY Potassium 4.5 3.4 - 5.3 mmol/L 09/07/2024 1:38 PM CDT LABORATORY Chloride 109(H) 98 - 107 mmol/L 09/07/2024 1:38 PM CDT LABORATORY Carbon Dioxide (CO2) 19(L) 22 - 29 mmol/L 09/07/2024 1:38 PM CDT [facility] Anion Gap 15 7 - 15 mmol/L 09/07/2024 1:38 PM CDT [facility] Urea Nitrogen 42.2(H) 6.0 - 20.0 mg/dL 09/07/2024 1:38 PM CDT [facility] Creatinine 1.92(H) 0.51 - 0.95 mg/dL 09/07/2024 1:38 PM CDT [facility] GFR Estimate 30(L) >60 mL/min/1.7 3m2 09/07/2024 1:38 PM CDT [facility] Comment:eGFR calculated usin 2020 CKD-EPI equation. Calcium 9.6 8.8 - 10.4 mg/dL 09/07/2024 1:38 PM CDT [facility] Glucose 112(H) 70 - 99 mg/dL 09/07/2024 1:38 PM CDT [facility] Blood STRUCTURE OF RIGHT UPPER LIMB / Unknown Venipuncture / Unknown 09/07/2024 9:51 AM CDT 09/07/2024 10:02 AM CDT Conrado Evans MD LAB - BLOOD ORDERABLES F inal Result [facility] LABORATORY [facility] [address] [facility], no room number) [place] [address] * (ABNORMAL) CBC with platelets (09/07/2024 9:51 AM CDT) WBC Count 4.3 4.0 - 11.0 10e3/uL 09/07/2024 10:07 AM CDT [facility] LAB[facility]AT[facility] RBC Count 4.21 3.80 - 5.20 10e6/uL 09/07/2024 10:07 AM CDT [facility] Hemoglobin 10.9(L) 11.7 - 15.7 g/dL 09/07/2024 10:07 AM CDT [facility] LAB[facility] Hematocrit 36.3 35.0 - 47.0 % 09/07/2024 10:07 AM CDT [facility] LAB[facility] MCV 86 78 - 100 fL 09/07/2024 10:07 AM CDT [facility] LAB[facility]ORY MCH 25.9(L) 26.5 - 33.0 pg 09/07/2024 10:07 AM CDT [facility] MCHC 30.0(L) 31.5 - 36.5 g/dL 09/07/2024 10:07 AM CDT [facility] LAB[facility] RDW 15.4(H) 10.0 - 15.0 % 09/07/2024 10:07 AM CDT [facility] Platelet Count 247 150 - 450 10e3/uL 09/07/2024 10:07 AM CDT [facility] LAB[facility]ATORY Blood BLOOD SPECIMEN / Unknown Venipuncture / Unknown 09/07/2024 9:51 AM CDT 09/07/2024 10:02 AM CDT Conrado Evans MD LAB - BLOOD ORDERABLES F inal Result [facility] [address] Lab (1st floor, no room number) [address] [place] [address] * Amylase (09/07/2024 9:51 AM CDT) Amylase 70 28 - 100 U/L 09/07/2024 10:21 AM CDT [facility] LABORATORY Blood STRUCTURE OF RIGHT UPPER LIMB / Unknown Venipuncture / Unknown 09/07/2024 9:51 AM CDT 09/07/2024 10:02 AM CDT Conrado Evans MD LAB - BLOOD ORDERABLES F inal Result [facility] [address] Lab (1st floor, no room number) [place] [id number] [place] [address] * Tacrolimus by Tandem Mass Spectrometry (09/07/2024 9:51 AM CDT) Tacrolimus by Tandem Mass Spectrometry 6.8 5.0 - 15.0 ug/L 09/07/2024 5:35 PM CDT [facility] Comment: Tacrolimus Reference Range (ug/L): Kidney Transplant: Pediatric 0-3 months post transplant: 10-12 3-6 months post transplant: 8-10 6-12 months post transplant: 6-8 >12 months post transplant: 4-7 Adult 0-6 months post transplant: 8-10 6-12 months post transplant: 6-8 >12 months post transplant: 4-6 >5 years post transplant: 3-5 Heart Transplant: Pediatric 0-12 months post transplant: 10-15 >12 months post transplant: 5-10 Adult 0-3 months post transplant: 10-15 3-6 months post transplant: 8-12 6-12 months post transplant: 6-12 >12 months post transplant: 6-10 Lung Transplant: 0-12 months post transplant: 10-15 >12 months post transplant: 8-12 Liver Transplant: Pediatric 0-3 months post transplant: 10-15 3-6 months post transplant: 8-10 6 months-5 years post transplant: 6-8 >5 years post transplant: 1-3 Adult 0-3 months post transplant: 10-12 3-6 months post transplant: 8-10 >6 months post transplant: 6-8 Pancreas Transplant: 0-6 months post transplant: 8-10 >6 months post transplant: 5-8 Tacrolimus Last Dose Date 09/06/2024 09/07/2024 5:35 PM CDT [facility] Tacrolimus Last Dose Time 8:00 AM 09/07/2024 5:35 PM CDT [facility] Blood STRUCTURE OF RIGHT UPPER LIMB / Unknown Venipuncture / Unknown 09/07/2024 9:51 AM CDT 09/07/2024 10:02 AM CDT Narrative [facility] - 09/07/2024 5:35 PM CDT This test was developed and its performance characteristics determined by the [facility], [facility]. It has not been cleared or approved by the FDA. The laboratory is regulated under CLIA as qualified to perform high-complexity testing. This test is used for clinical purposes. It should not be regarded as investigational or for research. us Conrado Evans MD LAB - BLOOD ORDERABLES F inal Result [facility] [address] [facility], [address] [place] [address], [facility] * Lipase (09/07/2024 9:51 AM CDT) Lipase 33 13 - 60 U/L 09/07/2024 10:21 AM CDT LABORATORY Blood STRUCTURE OF RIGHT UPPER LIMB / Unknown Venipuncture / Unknown 09/07/2024 9:51 AM CDT 09/07/2024 10:02 AM CDT us Conrado Evans MD LAB - BLOOD ORDERABLES F inal Result LABORATORY [facility] [address] [facility] Lab (1st floor, no room number) [place] [address] * Sirolimus by Tandem Mass Spectrometry (09/07/2024 9:51 AM CDT) Sirolimus by Tandem Mass Spectrometry 5.7 5.0 - 15.0 ug/L 09/07/2024 5:33 PM CDT [facility] Comment: Sirolimus Reference Range (ug/L): Kidney Transplant: Adult 6-12 months post transplant: 8-10 >12 months post transplant: 5-8 >5 years post transplant: 4-6 Heart Transplant: 4-10 Lung Transplant: 5-15 Hematopoietic Stem Cell Tx: 3-12 BMT Pediatric 3-12 Sirolimus Last Dose Date 09/07/2024 5:33 PM CDT [facility] Comment:Last dose informatio n not provided. Sirolimus Last Dose Time 09/07/2024 5:33 PM CDT [facility] Comment:Last dose informatio n not provided. Blood STRUCTURE OF RIGHT UPPER LIMB / Unknown Venipuncture / Unknown 09/07/2024 9:51 AM CDT 09/07/2024 10:03 AM CDT Narrative [facility] - 09/07/2024 5:33 PM CDT This test was developed and its performance characteristics determined by the [facility]. It has not been cleared or approved by the FDA. The laboratory is regulated under CLIA as qualified to perform high-complexity testing. This test is used for clinical purposes. It should not be regarded as investigational or for research. us Conrado Evans MD LAB - BLOOD ORDERABLES F inal Result [facility] [address], [address] [place] [address] * Hemoglobin A1c (09/07/2024 9:51 AM CDT) Estimated Average Glucose 105 <117 mg/dL 09/07/2024 10:21 AM CDT [facility] Hemoglobin A1C 5.3 <5.7 % 09/07/2024 10:21 AM CDT [facility] Comment: Normal <5.7% Prediabetes 5.7-6.4% Diabetes 6.5% or higher Note: Adopted from ADA consensus guidelines. Blood STRUCTURE OF RIGHT UPPER LIMB / Unknown Venipuncture / Unknown 09/07/2024 9:51 AM CDT 09/07/2024 10:02 AM CDT us Conrado Evans MD LAB - BLOOD ORDERABLES F inal Result LABORATORY [facility] [address] Lab (1st floor, no room number) [place] [address] * (ABNORMAL) Lipid panel reflex to direct LDL Fasting (09/07/2024 9:51 AM CDT) Cholesterol 158 <200 mg/dL 09/07/2024 2:00 PM CDT [facility] Triglycerides 180(H) <150 mg/dL 09/07/2024 2:00 PM CDT [facility] Direct Measure HDL 58 >=50 mg/dL 09/07/2024 2:00 PM CDT [facility] LDL Cholesterol Calculated 64 <100 mg/dL 09/07/2024 2:00 PM CDT [facility] Comment:LDL calculated using the Friedewald equation. Non HDL Cholesterol 100 <130 mg/dL 09/07/2024 2:00 PM CDT [facility] Patient Fasting > 8hrs? Yes 09/07/2024 2:00 PM CDT [facility] Blood STRUCTURE OF RIGHT UPPER LIMB / Unknown Venipuncture / Unknown 09/07/2024 9:51 AM CDT 09/07/2024 10:02 AM CDT Narrative [facility] - 09/07/2024 2:00 PM CDT Cholesterol Desirable: < 200 mg/dL Borderline High: 200 - 239 mg/dL High: >= 240 mg/dL Triglycerides Normal: < 150 mg/dL Borderline High: 150 - 199 mg/dL High: 200-499 mg/dL Very High: >= 500 mg/dL Direct Measure HDL Female: >= 50 mg/dL Male: >= 40 mg/dL LDL Cholesterol Desirable: < 100 mg/dL Above Desirable: 100 - 129 mg/dL Borderline High: 130 - 159 mg/dL High: 160 - 189 mg/dL Very High: >= 190 mg/dL Non HDL Cholesterol Desirable: < 130 mg/dL Above Desirable: 130 - 159 mg/dL Borderline High: 160 - 189 mg/dL High: 190 - 219 mg/dL Very High: >= 220 mg/dL us Conrado Evans MD LAB - BLOOD ORDERABLES F inal Result [facility] [facility] [address] [facility], [address] [place] [address], [facility] LABORATORY [facility] [address] [facility] Lab (1st floor, no room number) [place] [address] * Patrick Lacy Virus Quantitative PCR, Plasma (09/07/2024 9:51 AM CDT) EBV DNA IU/mL Not Detected Not Detected IU/mL 09/07/2024 5:51 PM CDT [facility] Blood STRUCTURE OF RIGHT UPPER LIMB / Unknown Venipuncture / Unknown 09/07/2024 9:51 AM CDT 09/07/2024 10:02 AM CDT Narrative [facility] - 09/07/2024 5:51 PM CDT The karen EBV assay is an FDA-approved, in vitro nucleic acid amplification test for the quantification of Patrick-Lacy virus (EBV) in human EDTA plasma on the Saritha karen instrument system for automated viral nucleic acid extraction, purification, amplification, and detection of the viral nucleic acid target. Selective amplification of target nucleic acid from the sample is achieved using a dual target virus-specific approach from highly conserved regions of the EBV located in the EBV EBNA-1 gene and the EBV BMRF gene. This test is intended for use as an aid in the management of EBV in transplant patients. In patients undergoing monitoring of EBV, serial DNA measurements can be used to indicate the need for potential treatment changes and to assess response to treatment. The assay is calibrated to the World Health Organization International Standard for EBV DNA. Titer results are reported in International Units (IU)/mL. Conrado Evans MD LAB - MICRO GENERAL ORDEliceo BASSETT Final Result [facility] Inf. Diseases Diag. Lab [address] [facility], [address] [place] [address] * (ABNORMAL) Hepatic panel (09/07/2024 9:51 AM CDT) Protein Total 6.3(L) 6.4 - 8.3 g/dL 09/07/2024 10:21 AM CDT [facility] Albumin 3.4(L) 3.5 - 5.2 g/dL 09/07/2024 10:21 AM CDT [facility] Bilirubin Total 0.2 <=1.2 mg/dL 09/07/2024 10:21 AM CDT [facility] Alkaline Phosphatase 86 40 - 150 U/L 09/07/2024 10:21 AM CDT [facility] AST 38 0 - 45 U/L 09/07/2024 10:21 AM CDT [facility] ALT 23 0 - 50 U/L 09/07/2024 10:21 AM CDT [facility] Bilirubin Direct 0.09 0.00 - 0.30 mg/dL 09/07/2024 10:21 AM CDT [facility] Comment:As of 24, refer ence ranges and trending lines may vary depending on the testing location. 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, not stated as uncontrolled documented in this encounter Additional Health Concerns 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, 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 Parvovirus 07/16/2023 07/16/2023 10/03/2024 4:22 PM CDT Assessment Noted Time PHQ-9 Depression Total Score: 18 023 10:27 AM CHIPPER documented as of this encounter Care Teams Morgue Librarian Relationship Specialty Start Date End Date Robert Marley MD [facility] [address] [place] [address] PCP - General Family Practice 12/08/10 Tayo Lacey MD [facility] [address] [place] [address] Cardiology 08/30/14 Christopher Quiroga MD [facility] [address] [place] [address] Oncology 07/02/16 Lance Simpson PA-C [address] [place] [address] Physician Digital Asset Manager Physician Digital Asset Manager 01/07/18 Sherri Kingston PA [address] [facility] [place] [address] Physician Digital Asset Manager Physician Digital Asset Manager 12/21/18 Delvin Bob MD [address] [place] [address] [address] [place] [address] Internal Medicine 11/11/19 Love Hernandez PA-C [address] [place] [address] [place], [place] [address] Physician Digital Asset Manager Urology 12/01/22 Love Hernandez PA-C [address] [place] [place], [place] [address] Assigned Surgical Provider 01/17/23 [place] [address] [address] [place] [address] Assigned Gastroenterology Provider 07/23/23 Everardo Grant MD [address] [place] [address] Physician Infectious Diseases 09/23/23 Rey Billings MD [address] [place] [address] Assigned Infectious Disease Provider 10/23/23 Conrado Evans MD [address] [facility] [address] [facility] [address] [place] [address] Nephrology 08/25/24 Delvin Lopez MD [address] [place] [address] Nephrology 08/25/24 documented as of this encounter
--- OUTSIDE RECORDS SUMMARY | 2024-09-19 14:00 | XMS_ITS | Encounter Summary ---
Author Organization [facility] Address [address] [place] [address] Care Team Providers Care Human Resources Temp Name Role Phone Robert Marley MD Primary Care Provider [phone] Tayo Lacey MD Unavailable [phone] Christopher Quiroga MD Unavailable Lance Simpson PA-C Unavailable [phone] Sherri Kingston Unavailable [phone] Delvin Bob MD Unavailable [phone] Love Hernandez-C Unavailable [phone] Love Hernandez-C Unavailable Gordy Nickerson MD Unavailable [phone] Everardo Grant MD Unavailable Rey Billings MD Unavailable [phone] Conrado Evans MD Unavailable [phone] Delvin Lopez MD Unavailable [phone] Reason for Visit * Reason Comments Labs Only Blood draw and urine Encounter Details Date Type Department Care Team (Late st Contact Info) Description 09/19/2024 2:00 PM CDT Lab [address] [place] 200 [facility] [place] [phone] Conrado Evans MD 717 [facility] 353 [employer] [address] [place] [address] Kidney replaced by transplant; Aftercare following organ transplant; Proteinuria Social History Tobacco Use Types Packs/Day Years [...] on file Legal 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 Patient seen by provider today: No. 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 Concerns: No Concerns. Procedure: Lab draw site: right forearm, Needle type: butterfly, Gauge: 23. Post Assessment: Labs drawn without difficulty: Yes. Discharge Plan: Departure Mode: Wheelchair. Face to Face Time: 10 minutes. Urine also sent Madiha Mayes MA documented in this encounter Plan of Treatment Upcoming Encounters Date Type Department Care Team (Late st Contact Info) Description 10/25/2024 10:00 AM CDT Virtual Visit [facility] [address] [place] [address] Edith Brito 10/26/2024 8:30 AM CDT Lab [facility] [address] [place] [phone] Conrado Evans MD 710 [facility] 353 [employer] [address] [place] [address] documented as of this encounter Procedures Procedure Name Priority Date/Time Associated Diagnosis Comments PROTEIN ELECTROPHORESIS, SERUM Routine 09/19/2024 2:16 PM CDT Kidney replaced by transplant Aftercare following organ transplant Proteinuria TOTAL PROTEIN, SERUM FOR ELP Routine 09/19/2024 2:16 PM CDT Kidney replaced by transplant Aftercare following organ transplant Proteinuria KAPPA AND LAMBDA LIGHT CHAIN Routine 09/19/2024 2:16 PM CDT Kidney replaced by transplant Aftercare following organ transplant Proteinuria ROUTINE UA WITH MICROSCOPIC REFLEX TO CULTURE Routine 09/19/2024 2:16 PM CDT Kidney replaced by transplant Aftercare following organ transplant Proteinuria TACROLIMUS BY TANDEM MASS SPECTROMETRY Routine 09/19/2024 2:16 PM CDT Kidney replaced by transplant SIROLIMUS BY TANDEM MASS SPECTROMETRY Routine 09/19/2024 2:16 PM CDT Kidney replaced by transplant PROTEIN RANDOM URINE Routine 09/19/2024 2:16 PM CDT Kidney replaced by transplant Aftercare following organ transplant Proteinuria ALBUMIN RANDOM URINE QUANTITATIVE Routine 09/19/2024 2:16 PM CDT Kidney replaced by transplant Aftercare following organ transplant Proteinuria LIPASE Routine 09/19/2024 2:16 PM CDT Kidney replaced by transplant PROTEIN ELECTROPHORESIS Routine 09/20/19 2:16 PM CDT Kidney replaced by transplant Aftercare following organ transplant Proteinuria AMYLASE Routine 09/19/2024 2:16 PM CDT Kidney replaced by transplant BASIC METABOLIC PANEL Routine 09/19/2024 2:16 PM CDT Kidney replaced by transplant CBC WITH PLATELETS Routine 09/19/2024 2: 16 PM CDT Kidney replaced by transplant documented in this encounter Results * (ABNORMAL) Protein Electrophoresis, Serum (09/19/2024 2:16 PM CDT) Albumin 3.2(L) 3.7 - 5.1 g/dL 09/20/2024 4:43 PM CDT [facility] C[facility]/PROT/E NDO Alpha 1 0.4 0.2 - 0.4 g/dL 09/20/2024 4:43 PM CDT [facility] SPECIALTY CORE/PROT/E NDO Alpha 2 0.8 0.5 - 0.9 g/dL 09/20/2024 4:43 PM CDT [facility] CORE/PROT/E NDO Beta Globulin 0.7 0.6 - 1.0 g/dL 09/20/2024 4:43 PM CDT [facility] CORE/PROT/E NDO Gamma Globulin 0.9 0.7 - 1.6 g/dL 09/20/2024 4:43 PM CDT [facility] CORE/PROT/E NDO Monoclonal Peak 0.0 <=0.0 g/dL 09/20/2024 4:43 PM CDT [facility] C[facility]/PROT/E NDO ELP Interpretation Hypoalbuminemia with an otherwise essentially normal electrophoretic pattern. No monoclonal protein seen. Pathologic significance requires clinical correlation. Angelic Warner M.D., Ph.D. 09/20/2024 4:43 PM CDT [facility] CORE/PROT/E NDO Signout Location if Remote [facility] 09/20/2024 4:43 PM CDT [facility] LABS Blood STRUCTURE OF LEFT UPPER LIMB / Unknown Venipuncture / Unknown 09/19/2024 2:16 PM CDT 09/19/2024 2:27 PM CDT us Conrado Evans MD LAB - BLOOD ORDERABLES F inal Result [facility] CORE/PROT/ENDO [facility] Specialty Core/Prot/Endo [address], [address] [place] [address], [facility] UM SPECIALTY LABS [facility] Lab [address], [address] [place] [address], [facility] * (ABNORMAL) Total Protein, Serum for ELP (09/19/2024 2:16 PM CDT) Pathologist [facility] Total Protein Serum for ELP 6.0(L) 6.4 - 8.3 g/dL 09/19/2024 3:06 PM CDT LABORATORY Blood STRUCTURE OF LEFT UPPER LIMB / Unknown Venipuncture / Unknown 09/19/2024 2:16 PM CDT 09/19/2024 2:27 PM CDT us Conrado Evans MD LAB - BLOOD ORDERABLES F inal Result LABORATORY [facility] Lab [address] [facility] Lab (1st floor, no room number) [place] [address], [facility] * (ABNORMAL) [place] and lambda light chain (09/19/2024 2:16 PM CDT) Pathologist [facility] [place] Free Light Chains 9.59(H) 0.33 - 1.94 mg/dL 09/20/2024 8:45 AM CDT SPECIALTY CORE/PROT/ENDO Lambda Free Light Chains 7.83(H) 0.57 - 2.63 mg/dL 09/20/2024 8:45 AM CDT SPECIALTY CORE/PROT/ENDO [place] /Lambda Ratio 1.22 0.26 - 1.65 09/20/2024 8:45 AM CDT SPECIALTY CORE/PROT/ENDO Blood STRUCTURE OF LEFT UPPER LIMB / Unknown Venipuncture / Unknown 09/19/2024 2:16 PM CDT 09/19/2024 2:27 PM CDT Narrative SPECIALTY CORE/PROT/ENDO - 09/20/2024 8:45 AM CDT Undetected antigen excess is a rare event but cannot be excluded. If these free light chain results do not agree with other clinical or laboratory findings, or if the sample is from a patient that has previously demonstrated antigen excess, the result must be checked by retesting at a higher sample dilution. Results should always be interpreted in conjunction with other laboratory tests and clinical evidence; any anomalies should be discussed with the testing laboratory. us Conrado Evans MD LAB - BLOOD ORDERABLES F inal Result SPECIALTY CORE/PROT/ENDO Specialty Core/Prot/Endo [address] [facility] [address] [facility], Room [address] [id number] * (ABNORMAL) Albumin Random Urine Quantitative with Creat Ratio (09/19/2024 2:16 PM CDT) Creatinine Urine mg/dL 140.0 mg/dL 09/19/2024 4:45 PM CDT [facility] Comment:The reference ranges have not been established in urine creatinine. The results should be integrated into the clinical context for interpretation. Albumin Urine mg/L 1,627.0 mg/L 2024 4:45 PM CDT [facility] Comment:The reference ranges have not been established in urine albumin. The results should be integrated into the clinical context for interpretation. Albumin Urine mg/g Cr 1,162.14( H) 0.00 - 25.00 mg/g Cr 09/19/2024 4:45 PM CDT [facility] Comment: Microalbuminuria is defined as an albumin:creatinine ratio of 17 to 299 for males and 25 to 299 for females. A ratio of albumin:creatinine of 300 or higher is indicative of overt proteinuria. Due to biologic variability, positive results should be confirmed by a second, first-morning random or 24-hour timed urine specimen. If there is discrepancy, a third specimen is recommended. When 2 out of 3 results are in the microalbuminuria range, this is evidence for incipient nephropathy and warrants increased efforts at glucose control, blood pressure control, and institution of therapy with an kaqjngobmzv-tuaxjcxbik-axwric (TATIANA) inhibitor (if the patient can tolerate it). Urine URINE SPECIMEN OBTAINED BY CLEAN CATCH PROCEDURE / Unknown Non-blood Collection / Unknown 09/19/2024 2:16 PM CDT 09/19/2024 2:26 PM CDT us Conrado Evans MD LAB - URINE ORDERABLES F inal Result [facility] LAB[facility]ATORY [facility] [place] [facility] [address] [facility] Unit [facility], Room [address] [address] * (ABNORMAL) UA with Microscopic reflex to Culture (09/19/2024 2:16 PM CDT) Color Urine Light Yellow Colorless, Straw, Light Yellow, Yellow 09/19/2024 2:47 PM CDT [facility] Appearance Urine Clear Clear 09/20/19 2:47 PM CDT [facility] Glucose Urine Negative Negative mg/dL 09/19/2024 2:47 PM CDT [facility] Bilirubin Urine Negative Negative 2:47 PM CDT [facility] Ketones Urine Negative Negative mg/dL 09/19/2024 2:47 PM CDT [facility] Specific [place] Urine 1.020 1.003 - 1.035 09/19/2024 2:47 PM CDT LABORATORY Blood Urine Trace(A) Negative 09/19/2024 2:47 PM CDT LABORATORY pH Urine 6.0 5.0 - 7.0 09/19/2024 2:47 PM CDT [facility] Protein Albumin Urine 100(A) Negative mg/dL 09/19/2024 2:47 PM CDT LABORATORY Urobilinogen Urine Normal Normal mg/dL 09/19/2024 2:47 PM CDT [facility] Nitrite Urine Negative Negative 09/19/2024 2:47 PM CDT [facility] Leukocyte Esterase Urine Negative Negative 09/19/2024 2:47 PM CDT LABORATORY Mucus Urine Present(A) None Seen /LPF 09/19/2024 2:47 PM CDT [facility] RBC Urine 2 <=2 /HPF 09/19/2024 2:47 PM CDT LABORATORY WBC Urine 3 <=5 /HPF 09/19/2024 2:47 PM CDT [facility] Squamous Epithelials Urine 1 <=1 /HPF 09/19/2024 2:47 PM CDT [facility] Urine URINE SPECIMEN OBTAINED BY CLEAN CATCH PROCEDURE / Unknown Non-blood Collection / Unknown 09/19/2024 2:16 PM CDT 09/19/2024 2:26 PM CDT Narrative [facility] - 09/19/2024 2:47 PM CDT Urine Culture not indicated us Conrado Evans MD LAB - URINE ORDERABLES F inal Result Performing Organization Address [facility]/ZIP Co de Phone Number [facility] [address] (1st floor, no room number) [place] [address] * (ABNORMAL) Protein random urine (09/19/2024 2:16 PM CDT) Total Protein Urine mg/dL 243.9 mg/dL 09/19/2024 3:57 PM CDT LABORATORY Comment:The reference ranges have not been established in urine protein. The results should be integrated into the clinical context for interpretation. Total Protein Urine mg/mg Creat 1.73(H) 0.00 - 0.20 mg/mg Cr 09/19/2024 3:57 PM CDT LABORATORY Creatinine Urine mg/dL 140.9 mg/dL 09/19/2024 3:57 PM CDT LABORATORY Comment:The reference ranges have not been established in urine creatinine. The results should be integrated into the clinical context for interpretation. Urine URINE SPECIMEN OBTAINED BY CLEAN CATCH PROCEDURE / Unknown Non-blood Collection / Unknown 09/19/2024 2:16 PM CDT 09/19/2024 2:26 PM CDT Conrado Evans MD LAB - URINE ORDERABLES F inal Result Performing Organization Address [facility] Co de Phone Number [facility] [address] Lab (1st floor, no room number) [place] [address] * (ABNORMAL) Sirolimus by Tandem Mass Spectrometry (09/19/2024 2:16 PM CDT) Sirolimus by Tandem Mass Spectrometry 4.8(L) 5.0 - 15.0 ug/L 09/19/2024 10:16 PM CDT [facility] DRUG/BGEN Comment: Sirolimus Reference Range (ug/L): Kidney Transplant: Adult 6-12 months post transplant: 8-10 >12 months post transplant: 5-8 >5 years post transplant: 4-6 Heart Transplant: 4-10 Lung Transplant: 5-15 Hematopoietic Stem Cell Tx: 3-12 BMT Pediatric 3-12 Sirolimus Last Dose Date 09/19/2024 10:16 PM CDT [facility]BGEN Comment:Last dose informatio n not provided. Sirolimus Last Dose Time 09/19/2024 10:16 PM CDT [facility] DRUG/BGEN Comment:Last dose informatio n not provided. Blood STRUCTURE OF LEFT UPPER LIMB / Unknown Venipuncture / Unknown 09/19/2024 2:16 PM CDT 09/19/2024 2:27 PM CDT Narrative [facility] SPECIAL DRUG/BGEN - 09/19/2024 10:16 PM CDT This test was developed and its performance characteristics determined by the [facility], Special Chemistry Laboratory. It has not been cleared or approved by the FDA. The laboratory is regulated under CLIA as qualified to perform high-complexity testing. This test is used for clinical purposes. It should not be regarded as investigational or for research. Conrado Evans MD LAB - BLOOD ORDERABLES F inal Result [facility] SPECIAL DRUG/BGEN [facility] Special Drug/BGEN [address] [facility], [address] [place] [address] * Lipase (09/19/2024 2:16 PM CDT) Pathologist [facility] Lipase 35 13 - 60 U/L 09/19/2024 2:59 PM CDT LABORATORY Blood STRUCTURE OF LEFT UPPER LIMB / Unknown Venipuncture / Unknown 09/19/2024 2:16 PM CDT 09/19/2024 2:27 PM CDT Conrado Evans MD LAB - BLOOD ORDERABLES F inal Result LABORATORY [facility] Lab [address] Lab (1st floor, no room number) [place] [address] * Tacrolimus by Tandem Mass Spectrometry (09/19/2024 2:16 PM CDT) Pathologist [facility] Tacrolimus by Tandem Mass Spectrometry 6.4 5.0 - 15.0 ug/L 09/19/2024 10:16 PM CDT [facility] DRUG/BGEN Comment: Tacrolimus [...] post transplant: 5-8 Tacrolimus Last Dose Date 09/19/2024 10:16 PM CDT [facility] DRUG/BGEN Comment:Last dose informatio n not provided. Tacrolimus Last Dose Time 09/19/2024 10:16 PM CDT [facility] DRUG/BGEN Comment:Last dose informatio n not provided. Blood STRUCTURE OF LEFT UPPER LIMB / Unknown Venipuncture / Unknown 09/19/2024 2:16 PM CDT 09/19/2024 2:27 PM CDT Narrative [facility] SPECIAL DRUG/BGEN - 09/19/2024 10:16 PM CDT This test was developed and its performance characteristics determined by the [facility], Special Chemistry Laboratory. It has not been cleared or approved by the FDA. The laboratory is regulated under CLIA as qualified to perform high-complexity testing. This test is used for clinical purposes. It should not be regarded as investigational or for research. us Conrado Evans MD LAB - BLOOD ORDERABLES F inal Result [facility] SPECIAL DRUG/BGEN UM Special Drug/BGEN [address], [address] [place] [address], [facility] * (ABNORMAL) CBC with platelets (09/19/2024 2:16 PM CDT) WBC Count 5.8 4.0 - 11.0 10e3/uL 09/19/2024 2:30 PM CDT [facility] RBC Count 3.47(L) 3.80 - 5.20 10e6/uL 09/19/2024 2:30 PM CDT [facility] Hemoglobin 9.2(L) 11.7 - 15.7 g/dL 09/19/2024 2:30 PM CDT [facility] Hematocrit 29.2(L) 35.0 - 47.0 % 09/19/2024 2:30 PM CDT [facility] MCV 84 78 - 100 fL 09/19/2024 2:30 PM CDT [facility] MCH 26.5 26.5 - 33.0 pg 09/19/2024 2:30 PM CDT [facility] MCHC 31.5 31.5 - 36.5 g/dL 09/19/2024 2:30 PM CDT [facility] RDW 14.8 10.0 - 15.0 % 09/19/2024 2:30 PM CDT [facility] Platelet Count 301 150 - 450 10e3/uL 09/19/2024 2:30 PM CDT [facility] Blood STRUCTURE OF LEFT UPPER LIMB / Unknown Venipuncture / Unknown 09/19/2024 2:16 PM CDT 09/19/2024 2:27 PM CDT us Conrado Evans MD LAB - BLOOD ORDERABLES F inal Result [facility] LABORAT[facility] Lab [address] Lab (1st floor, no room number) [place] [address], [facility] * (ABNORMAL) Basic metabolic panel (09/19/2024 2:16 PM CDT) Sodium 144 135 - 145 mmol/L 09/19/2024 2:59 PM CDT [facility] Potassium 4.8 3.4 - 5.3 mmol/L 09/19/2024 2:59 PM CDT [facility] Chloride 110(H) 98 - 107 mmol/L 09/19/2024 2:59 PM CDT [facility] Carbon Dioxide (CO2) 23 22 - 29 mmol/L 09/19/2024 2:59 PM CDT [facility] Anion Gap 11 7 - 15 mmol/L 09/19/2024 2:59 PM CDT [facility] Urea Nitrogen 50.4(H) 6.0 - 20.0 mg/dL 09/19/2024 2:59 PM CDT [facility] Creatinine 1.79(H) 0.51 - 0.95 mg/dL 09/19/2024 2:59 PM CDT [facility] GFR Estimate 32(L) >60 mL/min/1.7 3m2 09/19/2024 2:59 PM CDT [facility] Comment:eGFR calculated usin g 2020 CKD-EPI equation. Calcium 9.3 8.8 - 10.4 mg/dL 09/19/2024 2:59 PM CDT [facility] Glucose 89 70 - 99 mg/dL 09/19/2024 2:59 PM CDT [facility] Blood STRUCTURE OF LEFT UPPER LIMB / Unknown Venipuncture / Unknown 09/19/2024 2:16 PM CDT 09/19/2024 2:27 PM CDT Conrado Evans MD LAB - BLOOD ORDERABLES F inal Result LABORATORY [facility] Lab [address] Lab (1st floor, no room number) [place] [address], [facility] * Amylase (09/19/2024 2:16 PM CDT) Amylase 77 28 - 100 U/L 09/19/2024 2:59 PM CDT [facility] Blood STRUCTURE OF LEFT UPPER LIMB / Unknown Venipuncture / Unknown 09/19/2024 2:16 PM CDT 09/19/2024 2:27 PM CDT us Conrado Evans MD LAB - BLOOD ORDERABLES F inal Result [facility] Acute Care Lab [address] Lab (1st floor, no room number) [place] [address], [facility] documented in this encounter Visit Diagnoses Diagnosis Kidney replaced by transplant Aftercare following organ transplant Proteinuria documented in this encounter Additional Health Concerns 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, 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 Parvovirus 07/16/2023 07/16/2023 10/03/2024 4:22 PM CDT Assessment Noted Time PHQ-9 Depression Total Score: 18 023 10:27 AM 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 documented as of this encounter Care Teams Human Resources Temp Relationship Specialty Start Date End Date Robert Marley MD [facility] [id number] [place] [address] PCP - General Family Practice 12/08/10 Tayo Lacey MD [address] [address] Cardiology 08/30/14 Christopher Quiroga MD [facility] ONCOL[facility] HEMATOLOGY [address] [place] [address] Oncology 07/02/16 Lance Simpson PA-C [address] [place] [address] [id number] Physician Trim Machine Operator Physician Trim Machine Operator 01/07/18 Sherri Kingston PA [address] [place] [address] [place], [place] 6[address]25 Physician Trim Machine Operator Physician Trim Machine Operator 12/21/18 Delvin Bob MD [address] [place] [address] [address] [place] [address] Internal Medicine 11/11/19 Love Hernandez PA-C [address] [place], [place] [address] Physician Trim Machine Operator Urology 12/01/22 Love Hernandez PA-C [address] [place], [place] [address] Assigned Surgical Provider 01/17/23 [place] [address] [address], [place] [address] Assigned Gastroenterology Provider 07/23/23 Everardo Grant MD [address] [place] [id number] Physician Infectious Diseases 09/23/23 Rey Billings MD [address] [place] [address] [id number] Assigned Infectious Disease Provider 10/23/23 Conrado Evans MD 717 [facility] [address] [facility] [address] [place], [place] [address] Nephrology 08/25/24 Delvin Lopez MD [address] [place] [address] [id number] Nephrology 08/25/24 documented as of this encounter
--- OUTSIDE RECORDS SUMMARY | 2024-10-04 08:22 | XMS_ITS | Encounter Summary ---
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 Operator Portable Name Role Phone Robert Marley MD Primary Care Provider [phone] Tayo Lacey MD Unavailable [phone] Christopher Quiroga MD Unavailable Lance Simpson-C Unavailable [phone] Sherri Kingston Unavailable [phone] Delvin Bob MD Unavailable [phone] Love HernandezC Unavailable Love Hernandez-C Unavailable Gordy Nickerson MD Unavailable Everardo Grant MD Unavailable Rey Billings MD Unavailable [phone] Conrado Evans MD Unavailable [phone] Delvin Lopez MD Unavailable [phone] Reason for Referral * Therapeutic Imaging/IR (Priority: 1-2 Weeks) - Closed Specialty Diagnoses / Procedures Referred By Contac t Referred To Contact Radiology. Diagnoses Kidney replaced by transplant Aftercare following organ transplant Procedures IR Renal Biopsy Left IR Referral IR Referral Conrado Evans MD 717 [facility] 353 [facility] [address] [place] [address] Phone: tel: fax: [facility] Interventional Radiology [address] [place] [address] Phone: tel: Referral ID Status Reason Start Date Expiration Date Visits Re quested Visits Authorized [id number] Closed 09/23/2024 09/23/2025 1 1 Reason for Visit * Auth/Cert (Routine) Specialty Diagnoses / Procedures Referred By Jazzmine t Referred To Contact Med Surg Procedures IR Renal Biopsy Left Socrates Jolly MD [address] [place] [address] Phone: tel: fax: [facility] Unit [address] [place] [phone] Phone: tel: fax: Referral ID Status Reason Start Date Expiration Date Visits Re quested Visits Authorized [id number] 1 1 Encounter Details Date Type Department Care Team (Latest Contact Info) Description 10/04/2024 8:22 AM CDT - 10/04/2024 1:40 PM CDT Hospital Encounter [facility] [address] [place] [phone] Socrates Jolly MD [address] [place] [address] Kidney replaced by transplant; Aftercare following organ transplant; History of anemia due to CKD Discharge Disposition: Home or Self Care Social History Tobacco Use Types Packs/Day Years Used Date Smoking Tobacco: Former Cigarettes Passive Smoke Exposure: Never Smokeless Tobacco: Never Alcohol Use Standard Drinks/Week Comments No 0 (1 standard drink = 0.6 oz pur e alcohol) PHQ-2 Answer Date Recorded PHQ-2 Score 2 11/16/2023 Adolescent Education Answer Date Record ed Getting School Help Needed Not on file 11/22 Interpersonal Safety Answer Date Record ed Do you feel physically and e motionally safe where you currently live? Patient unable to answer 10/04/2024 Within the past 12 months, h ave you been hit, slapped, kicked or otherwise physically hurt by someone? Patient unable to answer 10/04/2024 Within the past 12 months, h ave you been humiliated or emotionally abused in other ways by your partner or ex-partner? 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 Gender Identity Not on file Sexual Orientation Not on file Occupation Industry Job Start Date Job End Date Not on file Not on file Not on file Not on file documented as of this encounter Last Filed Vital Signs Vital Sign Reading Time Taken Comments Blood Pressure 144/75 10/04/2024 1:30 PM CDT Pulse 73 10/04/2024 10:35 AM CDT Temperature 36.3 C (97.4 F) 10/04/2024 11:00 AM CDT Respiratory Rate 16 10/04/2024 1:30 PM CDT Oxygen Saturation 97% 10/04/2024 1:30 PM CDT Inhaled Oxygen Concentration - - Weight 54.9 kg (121 lb 0.5 oz) 10/04/2024 8:42 A M CDT Height - - Body Mass Index 19.54 11/16/2023 12:37 PM CDT documented in this encounter Discharge Instructions * Discharge Instructions* Laurence Delgado RN - 10/04/2024 9:16 AM CDT [facility] Interventional Radiology Patient Instructions Following Biopsy AFTER YOU GO HOME If you were given sedation, for the first 24 hours: we recommend that an adult stay with you, DO NOT drive or operate machinery at home or at work, DO NOT smoke, DO NOT make any important or legal decisions. DO NOT drink alcoholic beverages the day of your procedure Drink plenty of fluids Resume your regular diet, unless otherwise instructed by your Primary Physician Relax and take it easy for 48 hours DO NOT do any strenuous exercise or lifting (> 10 lbs) for at least 3 days following your procedure Keep the dressing dry and in place for 24 hours. Replace with Band aid for 2 days. Never leave a wet dressing in place. Do not take a shower for at least 12 hours following your procedure. No tub bath, hot tub, or swimming for 5 days. There should be minimum drainage from the biopsy site CALL THE PHYSICIAN IF: You start bleeding from the procedure site. If you do start to bleed from that site, lie down flat and hold pressure on the site for a minimum of 10 minutes. Your physician will tell you if you need to return to the hospital You develop nausea or vomiting You have excessive swelling, redness, or tenderness at the site You have drainage that looks like it is infected. You experience severe pain You develop hives or a rash or unexplained itching You develop shortness of breath You develop a temperature of 101 degrees F or greater You develop bloody clots or red urine after you are discharged [facility] INTERVENTIONAL RADIOLOGY DEPARTMENT Procedure Physician: Gilberto Nicole PA-C Date of procedure: October 04, 2024 Telephone Numbers: [phone] Thursday-Thursday 7:30 am to 4:00 pm [phone] After 4:00 pm Thursday-Thursday, Weekends & Holidays. Option #4 for the Event Sales Representative, and then ask for the Interventional Radiologist refrigeration operator. Someone is refrigeration operator 24 hrs/day [facility] toll free number: Thursday-Thursday 8:00 am to 4:30 pm [facility] Emergency Dept: [phone] documented in this encounter Medications at Time of Discharge acetaminophen (TYLENOL) 500 MG tablet Take 1,000 mg by mouth every 6 hours as needed for mild pain apixaban ANTICOAGULANT (ELIQUIS) 5 MG tablet Take 5 mg by mouth 2 times daily colesevelam (WELCHOL) 625 MG tablet Take 1 tablet by mouth 2 times daily (with meals) diphenoxylate-atrop ine (LOMOTIL) 2.5-0.025 MG tablet Take 2 tablets by mouth 3 times daily as needed for diarrhea Ferrous Gluconate 324 (37.5 Fe) MG TABS Take 1 tablet by mouth daily with food gabapentin (NEURONTIN) 300 MG capsule Take 300 mg by mouth 2 times daily qwfzoj-xpobqqbb-ktw lase (CREON 12) [id number] units CPEP Take 1 capsule by mouth 2 times daily pantoprazole (PROTONIX) 40 MG EC tablet Take 40 mg by mouth 2 times daily rosuvastatin (CRESTOR) 40 MG tablet Take 40 mg by mouth every evening sodium bicarbonate 650 MG tabletIndications:E levated serum creatinine,Kidney replaced by transplant Take 1 tablet (650 mg) by mouth 2 times daily. 60 tablet 11 11/10/2023 tacrolimus (GENERIC EQUIVALENT) 0.5 MG capsuleIndications: Kidney replaced by transplant TAKE 1 CAPSULE (0.5 MG) BY MOUTH 2 TIMES DAILY. 60 capsule 3 09/08/2024 tacrolimus (GENERIC EQUIVALENT) 1 MG capsuleIndications: Kidney replaced by transplant Take 4 capsules (4 mg) by mouth 2 times daily. 240 capsule 11 04/28/2024 topiramate (TOPAMAX) 50 MG tablet Take 50 mg by mouth 2 times daily buPROPion (WELLBUTRIN XL) 150 MG 24 hr tablet Take 1 tablet (150 mg) by mouth every morning 03/12/2022 5 citalopram (CELEXA) 20 MG tablet Take 20 mg by mouth daily 5 sirolimus (GENERIC EQUIVALENT) 0.5 MG tabletIndications:Corwin idney replaced by transplant Take 3 tablets (1.5 mg) by mouth daily HOLD FOR DOSE CHANGE 08/04/2023 5 sirolimus (GENERIC EQUIVALENT) 1 MG tabletIndications:Corwin idfranco replaced by transplant Take 3 tablets (3 mg) by mouth daily. 90 tablet 10/04/2024 5 documented as of this encounter Progress Notes * Howard Ma RN - 10/04/2024 1:40 PM CDT Vitals stable. LLQ pain rating 5/10-pt given tylenol. Bedside US done by MD and pt cleared for discharge. LLQ biopsy site remained soft, dry and intact. Pt tolerating po intake, voided (urine clear, yellow). Pt is wheelchair bound- denied dizziness/lightheadedness when sitting up. Discharge instructions were reviewed by Laurence SCOTT and pt has no further questions. Pt has copy of AVS. PIV removed. Pt escorted via her wheelchair to 's car. Pt has all her belongings. * Huber Orellana MD - 10/04/2024 12:22 PM CDT Brief IR Note: MD called to 2A regarding post-biopsy lower abdominal pain, radiating to bilateral proximal inner thighs. MD later returned at 1:30 PM after patient had reported pain had improved. BP (!) 146/78 Pulse 73 Temp 97.4 ??F (36.3 ??C) (Axillary) Resp 12 Wt 54.9 kg (121 lb 0.5 oz) LMP 06/30/2008 (LMP Unknown) SpO2 98% BMI 19.54 kg/m?? PE: AB: LLQ dressing clean dry and intact. Pain with gentle palpation over the biopsy tract. Remainder of abdomen soft and non-tender, no guarding. CARDS: RRR LUNGS: No respiratory distress. Psyc: Appropriate mood congruent with affect. IMG: Informal bedside US demonstrated normal greyscale appearance of the LLQ transplant kideny with echogenic gelfoam tract well visualized. No Perinephric collection. A/P Expected post-op pain is improving after 650 mg Tylenol. Reassuring vital signs. Patient is OK to discharge per post op order criteria. * Laurence Delgado RN - 10/04/2024 9:15 AM CDT Pt prepped for kidney biopsy. PIV intact, labs in process, consent has been signed. Pt , Darrion, at bedside will be transport home today. documented in this encounter Procedure Notes * Gilberto Nicole PA-C - 10/04/2024 10:41 AM CDTAssociated Order(s): IR Procedure Note [facility] Procedure: IR Procedure Note Date/Time: 10/04/2024 10:39 AM Performed by: Gilberto Nicole PA-C Authorized by: Gilberto Nicole PA-C IR Fellow Physician: Pre Procedure Diagnosis: abnormal kidney function Post Procedure Diagnosis: abnormal kidney function UNIVERSAL PROTOCOL Site Marked: NA Prior Images Obtained and Reviewed: Yes Required items: Required blood products, implants, devices and special equipment available Patient identity confirmed: Arm band, provided demographic data, hospital- assigned identification number and verbally with patient Patient was reevaluated immediately before administering moderate or deep sedation or anesthesia Confirmation Checklist: Correct equipment/implants were available, procedure was appropriate and matched the consent or emergent situation, relevant allergies and patient's identity using two indicators Time out: Immediately prior to the procedure a time out was called [place] Protocol: the Joint Commission [place] Protocol was followed Preparation: Patient was prepped and draped in usual sterile fashion ANESTHESIA Anesthesia: Local infiltration Local Anesthetic: Lidocaine 1% without epinephrine Anesthetic Total (mL): 5 SEDATION Patient Sedated: Yes Sedation Type: Moderate (conscious) sedation Sedation: Fentanyl and midazolam Vital signs: Vital signs monitored during sedation See dictated procedure note for full details. Findings: Moderate sedation for transplant kidney biopsy - 2 mg of midazolam and 100 mcg of fentanyl given over 10 minutes. Specimens: core needle biopsy specimens sent for pathological analysis Procedural Complications: None Condition: Stable Plan: 2 hours bedrest PROCEDURE Describe Procedure: Completed ultrasound-guided transplant kidney biopsy. 3 passes yielded 3 cores handed to renal pathology. Gelfoam in tract. No immediate complication. Patient Tolerance: Patient tolerated the procedure well with no immediate complications Length of time physician/provider present for 1:1 monitoring during sedation: 0-22 min documented in this encounter Miscellaneous Notes * IR Note - Yoan Avery RN - 10/04/2024 9:49 AM CDT Patient Name: Roxanna Monzon Today's Date: 10/04/2024 Procedure: Transplant kidney biopsy Proceduralist: Gilberto Nicole PA-C Pathology present: Yes, Renal Procedure Start: 1021 Procedure end: 1032 Sedation medications administered: Midazolam 2 mg, Fentanyl 100 mcg Report given to: 2A RN [address] Magistrate: No Other Notes: Pt arrived to IR room 6 from . Consent reviewed. Pt denies any questions or concernsregarding procedure. Pt positioned supine and monitored per protocol. Three cores collected and sent to pathology as ordered. Tract closed with gel foam, hemostasis achieved. Pt tolerated procedure without any noted complications. Pt transferred back to . * Pre-Procedure - Huber Orellana MD - 10/04/2024 9:06 AM CDT GENERAL PRE-PROCEDURE: Procedure: Transplant Rental Biopsy Date/Time: 10/04/2024 9:06 AM Verbal consent obtained?: Yes Written consent obtained?: Yes Risks and benefits: Risks, benefits and alternatives were discussed DC Plan: Appropriate discharge home plan in place for patients who are going home after procedure Consent given by: Patient Patient states understanding of procedure being performed: Yes Patient's understanding of procedure matches consent: Yes Procedure consent matches procedure scheduled: Yes Expected level of sedation: Moderate Appropriately NPO: Yes ASA Class: 2 Mallampati : Grade 1- soft palate, uvula, tonsillar pillars, and posterior pharyngeal wall visible Lungs: Lungs clear with good breath sounds bilaterally Heart: Normal heart sounds and rate History & Physical reviewed: History and physical reviewed and updates made (see comment) H&P Comments: Brief H&P: No changes to clinical condition, significant medications or recent hospitalizations. PE: CARDS: RRR PULM: CTAB AB: soft and nontender PSYC: Anxious mood congruent with affect. A/P : No changes to transplant renal biopsy plan. Statement of review: I have reviewed the lab findings, diagnostic data, medications, and the plan for sedation Huber Orellana MD 10/04/24 9:07 AM documented in this encounter Plan of Treatment Upcoming Encounters Date Type Department Care Team (Late st Contact Info) Description 10/25/2024 10:00 AM CDT Virtual Visit [facility] [address] [place] [phone] DarylEdith Taylor 10/26/2024 8:30 AM CDT [facility] [address] [facility] [address] [place] [address] Conrado Evans MD [address] [facility] [address] [facility] [address] [place] [address] documented as of this encounter Procedures Procedure Name Priority Date/Time Associated Diagnosis Comments URINALYSIS MACROSCOPIC STAT 10/04/2024 1:39 PM CDT PROTEIN RANDOM URINE STAT 10/04/2024 1:39 PM CDT URINE CULTURE STAT 10/04/2024 1:39 PM CDT IR PROCEDURE NOTE Routine 10/04/2024 10: 39 AM CDT IR RENAL BIOPSY LEFT Priority: 1-2 Weeks 10/04/2024 10:37 AM CDT Kidney replaced by transplant Aftercare following organ transplant SURGICAL PATHOLOGY EXAM STAT 10/04/2024 10:32 AM CDT PRA DONOR SPECIFIC ANTIBODY STAT 10/04/2024 9:01 AM CDT HLA DONOR SPECIFIC ANTIBODY Routine 10/04/2024 9:01 AM CDT HLA JAIRO, CPRA Routine 10/04/2024 9:01 AM CDT HLA JAIRO CLASS II, SINGLE ANTIGEN Routine 10/04/2024 9:01 AM CDT HLA JAIRO CLASS I, SINGLE ANTIGEN Routine 10/04/2024 9:01 AM CDT CBC WITH PLATELETS AND DIFFERENTIAL STAT 10/04/2024 9:01 AM CDT PRA DONOR SPECIFIC ANTIBODY STAT 10/04/2024 9:01 AM CDT CBC WITH PLATELETS & DIFFERENTIAL STAT 10/04/2024 9:01 AM CDT INR STAT 10/04/2024 9:01 AM CDT IRON AND IRON BINDING CAPACITY Add-On 10/04/2024 9:01 AM CDT History of anemia due to CKD BK VIRUS QUANTITATIVE, PCR STAT 10/04/2024 9:01 AM CDT BASIC METABOLIC PANEL STAT 10/04/2024 9:01 AM CDT documented in this encounter Results * Urine Culture (10/04/2024 1:39 PM CDT) Culture <10,000 CFU/mL Mixture of Urogenital Lisa 10/05/2024 10:37 AM CDT [facility] Urine MID-STREAM URINE SPECIMEN / Unknown Non-blood Collection / Unknown 10/04/2024 1:39 PM CDT 10/04/2024 1:46 PM CDT Conrado Evans MD LAB - MICRO GENERAL ORDE DANYELLE Final Result [facility]. Diseases Di[facility]. Lab [address] [facility], [address] [place] [phone] * (ABNORMAL) Urinalysis Macroscopic (10/04/2024 1:39 PM CDT) Color Urine Light Yellow Colorless, Straw, Light Yellow, Yellow 10/04/2024 2:01 PM CDT [facility] Appearance Urine Clear Clear 10/05/19 25 2:01 PM CDT [facility] Glucose Urine Negative Negative mg/dL 10/04/2024 2:01 PM CDT [facility] Bilirubin Urine Negative Negative 5 2:01 PM CDT [facility] Ketones Urine Negative Negative mg/dL 10/04/2024 2:01 PM CDT [facility] Specific [place] Urine 1.016 1.003 - 1.035 10/04/2024 2:01 PM CDT [facility] Blood Urine Small(A) Negative 10/04/2024 2:01 PM CDT [facility] pH Urine 7.0 5.0 - 7.0 10/04/2024 2:01 PM CDT [facility] Protein Albumin Urine 100(A) Negative mg/dL 10/04/2024 2:01 PM CDT [facility] Urobilinogen Urine Normal Normal mg/dL 10/04/2024 2:01 PM CDT [facility] Nitrite Urine Negative Negative 10/04/2024 2:01 PM CDT [facility] Leukocyte Esterase Urine Negative Negative 10/04/2024 2:01 PM CDT [facility] Urine URINE SPECIMEN OBTAINED BY CLEAN CATCH PROCEDURE / Unknown Non-blood Collection / Unknown 10/04/2024 1:39 PM CDT 10/04/2024 1:46 PM CDT Conrado Evans MD LAB - URINE ORDERABLES F inal Result [facility] [place] [facility] 500 [facility], Room [address] [place] [phone] * (ABNORMAL) Protein random urine (10/04/2024 1:39 PM CDT) Total Protein Urine mg/dL 174.0 mg/dL 10/04/2024 4:21 PM CDT [facility] Comment:The reference ranges have not been established in urine protein. The results should be integrated into the clinical context for interpretation. Total Protein Urine mg/mg Creat 1.92(H) 0.00 - 0.20 mg/mg Cr 10/04/2024 4:21 PM CDT [facility] Creatinine Urine mg/dL 90.6 mg/dL 10/04/2024 4:21 PM CDT [facility] Comment:The reference ranges have not been established in urine creatinine. The results should be integrated into the clinical context for interpretation. Urine URINE SPECIMEN OBTAINED BY CLEAN CATCH PROCEDURE / Unknown Non-blood Collection / Unknown 10/04/2024 1:39 PM CDT 10/04/2024 1:46 PM CDT us Conrado Evans MD LAB - URINE ORDERABLES F inal Result [facility] [place] [facility] 500 [facility], [address] [phone] * IR Procedure Note (10/04/2024 10:39 AM CDT) Narrative Gilberto Nicole PA-C - 10/04/2024 10:39 AM CDT Gilberto Nicole PA-C 10/04/2024 10:41 AM [facility] Procedure: IR Procedure Note Date/Time: 10/04/2024 10:39 AM Performed by: Gilberto Nicole PA-C Authorized by: Gilberto Nicole PA-C IR Fellow Physician: Pre Procedure Diagnosis: abnormal kidney function Post Procedure Diagnosis: abnormal kidney function UNIVERSAL PROTOCOL Site Marked: NA Prior Images Obtained and Reviewed: Yes Required items: Required blood products, implants, devices and special equipment available Patient identity confirmed: Arm band, provided demographic data, hospital-assigned identification number and verbally with patient Patient was reevaluated immediately before administering moderate or deep sedation or anesthesia Confirmation Checklist: Correct equipment/implants were available, procedure was appropriate and matched the consent or emergent situation, relevant allergies and patient's identity using two indicators Time out: Immediately prior to the procedure a time out was called [place] Protocol: the Joint Commission [place] Protocol was followed Preparation: Patient was prepped and draped in usual sterile fashion ANESTHESIA Anesthesia: Local infiltration Local Anesthetic: Lidocaine 1% without epinephrine Anesthetic Total (mL): 5 SEDATION Patient Sedated: Yes Sedation Type: Moderate (conscious) sedation Sedation: Fentanyl and midazolam Vital signs: Vital signs monitored during sedation See dictated procedure note for full details. Findings: Moderate sedation for transplant kidney biopsy - 2 mg of midazolam and 100 mcg of fentanyl given over 10 minutes. Specimens: core needle biopsy specimens sent for pathological analysis Procedural Complications: None Condition: Stable Plan: 2 hours bedrest PROCEDURE Describe Procedure: Completed ultrasound-guided transplant kidney biopsy. 3 passes yielded 3 cores handed to renal pathology. Gelfoam in tract. No immediate complication. Patient Tolerance: Patient tolerated the procedure well with no immediate complications Length of time physician/provider present for 1:1 monitoring during sedation: 0-22 min Gilberto Nicole PA-C PROCEDURE/MINOR SURGICAL ORDERABLES Final Result * IR Renal Biopsy Left (10/04/2024 10:37 AM CDT) Anatomical Region Laterality Modality Abdomen/Pelvis Radio Fluoroscop y Impressions 10/04/2024 10:43 AM CDT IMPRESSION: Completed ultrasound-guided left lower quadrant transplant kidney biopsy. A total of three kidney cores obtained. Samples handed to renal pathology to confirm adequacy. No immediate complication. CLINICAL HISTORY: Patient with abnormal kidney function the setting of a transplant kidney. Transplant kidney biopsy requested. PERFORMED BY: Gilberto Nicole PA-C CONSENT: Written informed consent was obtained and is documented in the patient record. SEDATION CONSENT: It was explained to the patient that medications used for sedation and pain relief may be administered, if needed, to reduce anxiety and discomfort that may be associated with the procedure. Serious side effects from the medications are rare but may include prolonged drowsiness and difficulty breathing, possibly requiring placement of a breathing tube to ventilate the lungs. MEDICATIONS: Intravenous sedation was administered with 2 mg midazolam and 100 mcg fentanyl. A 10:1 volume mixture of 1% lidocaine without epinephrine buffered with 8.4% bicarbonate solution was available for local anesthesia. NURSING: The patient was placed on continuous vital signs monitoring. Vital signs were monitored by nursing staff under IR staff supervision. SEDATION TIME: 10 minutes [id number] DESCRIPTION: The patient's low abdomen was prepped and draped in the usual sterile fashion. Under ultrasound guidance, the patient's skin, subcutaneous tissue, and kidney capsule were anesthetized. With ultrasound guidance, using a 17/18 gauge coaxial needle system, kidney tissue specimens were obtained. Needle was removed and the tract was sealed with Gelfoam pledgets. Pressure was held the site, and then cleansed and sterile dressing applied. Images were saved throughout the procedure. COMPLICATIONS: No immediate concerns, the patient remained stable throughout the procedure and tolerated it well. ESTIMATED BLOOD LOSS: Minimal SPECIMENS: 3 cores handed to renal pathology to confirm adequacy GILBERTO NICOLE PA-C Narrative 10/04/2024 10:43 AM CDT PRE-PROCEDURE DIAGNOSIS: Abnormal kidney function POST-PROCEDURE DIAGNOSIS: Same PROCEDURE: Ultrasound-guided left lower quadrant transplant kidney biopsy Procedure Note Gilberto Nicole PA-C - 10/04/2024 PRE-PROCEDURE DIAGNOSIS: Abnormal kidney function POST-PROCEDURE DIAGNOSIS: Same PROCEDURE: Ultrasound-guided left lower quadrant transplant kidney biopsy IMPRESSION: Completed ultrasound-guided left lower quadrant transplant kidney biopsy. A total of three kidney cores obtained. Samples handed to renal pathology to confirm adequacy. No immediate complication. CLINICAL HISTORY: Patient with abnormal kidney function the setting of a transplant kidney. Transplant kidney biopsy requested. PERFORMED BY: Gilberto Nicole PA-C CONSENT: Written informed consent was obtained and is documented in the patient record. SEDATION CONSENT: It was explained to the patient that medications used for sedation and pain relief may be administered, if needed, to reduce anxiety and discomfort that may be associated with the procedure. Serious side effects from the medications are rare but may include prolonged drowsiness and difficulty breathing, possibly requiring placement of a breathing tube to ventilate the lungs. MEDICATIONS: Intravenous sedation was administered with 2 mg midazolam and 100 mcg fentanyl. A 10:1 volume mixture of 1% lidocaine without epinephrine buffered with 8.4% bicarbonate solution was available for local anesthesia. NURSING: The patient was placed on continuous vital signs monitoring. Vital signs were monitored by nursing staff under IR staff supervision. SEDATION TIME: 10 minutes [id number] DESCRIPTION: The patient's low abdomen was prepped and draped in the usual sterile fashion. Under ultrasound guidance, the patient's skin, subcutaneous tissue, and kidney capsule were anesthetized. With ultrasound guidance, using a 17/18 gauge coaxial needle system, kidney tissue specimens were obtained. Needle was removed and the tract was sealed with Gelfoam pledgets. Pressure was held the site, and then cleansed and sterile dressing applied. Images were saved throughout the procedure. COMPLICATIONS: No immediate concerns, the patient remained stable throughout the procedure and tolerated it well. ESTIMATED BLOOD LOSS: Minimal SPECIMENS: 3 cores handed to renal pathology to confirm adequacy GILBERTO NICOLE PA-C Conrado Evans MD IMG IR ORDERABLES Final Result * Surgical pathology exam - Transplant Renal (10/04/2024 10:32 AM CDT) Case Report Surgical Pathology Report Case: [id number] Authorizing Provider: Conrado Evans MD Collected: 10/04/2024 10:32 AM Ordering Location: [facility] Received: 10/04/2024 10:44 AM Unit [address] [place] Pathologist: Lucio Forman MD Specimen: Kidney, Transplanted, Kidney biopsy 10/12/2024 12:23 PM CDT SPECIAL[facility] LABS Addendum ELECTRON MICROSCOPY: the sample originally submitted for light microscopy is reprocessed for ultrastructural examination; 1 glomerulus is examined ultrastructurally. The glomerular visceral epithelial cells reveal moderate to severe, partial, effacement of their foot processes. The glomerular basement membranes are segmentally wrinkled, but of normal thickness. Capillary loops reveal the presence of few intramembranous electron lucent defects. The endothelial cells show focal swelling. Tubuloreticular inclusions are not seen within the cytoplasm of glomerular endothelial cells. The mesangium reveals normal cellular elements and a normal amount of matrix. No unequivocal electron dense deposits are present in the mesangium or along the glomerular basement membranes. Note: the original diagnosis remains unchanged. 10/12/2024 12:23 PM CDT [facility] LABS Addendum electronically signed by Lucio Forman MD on 10/12/2024 at 1223 CDT Final Diagnosis A. 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 Leal was notified of the preliminary findings on 10/05/2024 at 10:20 AM. 10/12/2024 12:23 PM CDT [facility] LAB[facility] Clinical Information PAUL, increased proteinuria, transplanted kidney Etiology of Kidney Failure: Diabetes mellitus type 1 SPK Transplant on 01/21/2014 (Kidney / Pancreas) Significant transplant-related complications: EBV Viremia, Recurrent UTIs and Frequent Infections 10/12/2024 12:23 PM CDT SPECIAL[facility] LAB[facility] Gross Description A(A). Kidney, Transplanted, Kidney biopsy: Transplant kidney biopsy, immediate assessment: Cortical kidney tissue confirmed for light microscopy, immunofluorescence, and electron microscopy. (Arpita PENNINGTON([facility])) The specimen is received in formalin with proper patient identification, labeled kidney biopsy. The specimen consists of 4 hernandez needle core biopsies 0.3-1.0 in length and each 0.1 cm in diameter. The specimen is wrapped and is entirely submitted in cassette A1 for dickerson processing. A separate specimen is received in Shelton fixative and consists of a 0.5 cm in length and 0.1 cm in diameter hernandez core biopsy which is processed for immunofluorescence studies. A separate specimen is in glutaraldehyde and consists of a single hernandez core biopsy, 0.2 cm in length and 0.1 cm in diameter which is processed for electron microscopic studies. 10/12/2024 12:23 PM CDT U LABORATORY Microscopic Description LIGHT MICROSCOPY: Sections of formalin-fixed, paraffin embedded tissue were evaluated using H&E, PAS, Noel, and trichrome stains with the appropriate controls. An H&E-stained frozen section taken from the tissue allocated for immunofluorescence microscopy and methylene blue-stained epoxy sections of the tissue processed for electron microscopy were also evaluated using light microscopy. The sample consists of kidney cortex and medulla, and it includes 10 glomeruli (LM-10; IF-0; EM-0), of which 2 are globally sclerosed, 1 is segmentally sclerosed, and few appear hypoperfused. The glomerular capillary loops are segmentally wrinkled. No basement membrane spikes, craters, or double contours are seen in the glomeruli. Endocapillary hypercellularity or cellular crescents are not seen in the glomeruli. The mesangium appears unremarkable. There is multifocal loss of the brush border of the proximal tubular epithelium. Few tubules show luminal dilation. Few tubules contain non-polarizable calcium phosphate crystals. Tubules show no significant tubulitis. No obvious viral inclusions are seen in tubules. Few tubules contain PAS-positive hyaline casts. No urate or oxalate crystals are present in the sample. The interstitium contains mild interstitial inflammation in areas of atrophy; the infiltrates are composed of mononuclear inflammatory cells. Peritubular capillaries focally contain few circulating mononuclear inflammatory cells. About 20% of the renal cortex shows tubular atrophy and interstitial fibrosis. Arteries show severe sclerosis. Arterioles show severe hyalinosis. Arteritis is not seen in the sample. IMMUNOFLUORESCENCE MICROSCOPY: The sections of the sample submitted for immunofluorescence studies were incubated with antibodies specific for the heavy chains of IgG, IgA, and IgM, for kappa and lambda light chains, albumin, fibrin, and complement components C3, C4d and C1q. The sample contains no glomeruli. Tubules contain few intraluminal casts reactive for polyclonal IgA. The interstitium reveals scattered fibrin deposits. There is no difference in reactivity between kappa and lambda light chains in the tubular casts and background of the tissue. The C4d staining is negative in peritubular capillaries. CD31 as a positive control is diffusely positive along the peritubular capillaries. ELECTRON MICROSCOPY: The sample submitted for electron microscopy examination contains no glomeruli; the sample originally submitted for light microscopy will be reprocessed for ultrastructural examination. Ultrastructural findings will be reported in an addendum. I have personally reviewed all specimens and slides, including the listed special stains, and used them with my medical judgement to determine the final diagnosis. 10/12/2024 12:23 PM CDT SPECIAL[facility] LAB[facility] Performing Labs The technical component of this testing was completed at [facility]. Stain controls for all stains resulted within this report have been reviewed and show appropriate reactivity. 10/12/2024 12:23 PM CDT [facility] Case Images 10/12/2024 12:23 PM CDT [facility] LAB[facility] Tissue STRUCTURE OF TRANSPLANTED KIDNEY / Unknown Non-blood Collection / Unknown 10/04/2024 10:32 AM CDT 10/04/2024 10:44 AM CDT Comment:STAT/DICKERSON processing required Conrado LOPEZ - MAY Diaz R esult - Final [facility] [address] [facility] [address], [address] [phone], [facility] [place] [facility] [address] [facility] [address], [address] [place] [address] * (ABNORMAL) Iron & Iron Binding Capacity (10/04/2024 9:01 AM CDT) Iron 157(H) 37 - 145 ug/dL 10/07/2024 8:05 PM CDT [facility] Iron Binding Capacity 10/07/2024 8:05 PM CDT [facility] Comment:Unable to calculate: UIBC or Iron value is outside detectable level. Iron Sat Index 10/07/2024 8:05 PM CDT [facility] Comment:Unable to calculate: UIBC or Iron value is outside detectable level. Blood BLOOD SPECIMEN / Unknown Venipuncture / Unknown 10/04/2024 9:01 AM CDT 10/04/2024 9:12 AM CDT us Delvin Ferrari MD LAB - BLOOD ORDERABLES Final R esult LABORATORY [facility] [place] [facility] [address] [facility], Room [address] * HLA Jairo, CPRA (10/04/2024 9:01 AM CDT) UNOS CPRA 94 10/05/2024 5:09 PM CDT U [facility] UNACCEPTABLE ANTIGENS A:23 24 25 32 34 66 B:7 13 27 37 38 44 45 49 51 52 53 57 58 60 [address]:7 9 10 12 DQ:2 10/05/2024 5:09 PM CDT U [facility] Blood BLOOD SPECIMEN / Unknown Venipuncture / Unknown 10/04/2024 9:01 AM CDT 10/04/2024 9:07 AM CDT us Conrado Evans MD LAB - IMMUNOLOGY ORDERAB LES Final Result HLA LABORATORY Immunology/Histocomp atability CLIA: [id number] [employer] [address] [facility] [address], [address] [phone] * HLA Jairo Class II, Single Antigen (10/04/2024 9:01 AM CDT) SA 2 TEST METHOD SA EDTA FCS 10/05/2024 5:09 PM CDT [facility] SA 2 CELL Class II 10/05/2024 5:09 PM CDT [facility] SA2 HI RISK JAIRO DR:7 9 12 5:09 PM CDT [facility] SA2 MOD RISK JAIRO None 10/05/2024 5:09 PM CDT [facility] SA 2 COMMENTS HLA PRA Test performed by modified testing procedure that may also include pretreatment of serum. Pretreatment may be the addition of calf serum, EDTA, and/or adsorption. High-risk, MFI > 3,000. Mod-risk, MFI 500-3,000. 10/05/2024 5:09 PM CDT [facility] Comment:HLA PRA Test perform ed by modified testing procedure that may also include pretreatment of serum. Pretreatment may be the addition of calf serum, EDTA, and/or adsorption. For SA FCS: High-risk, MFI > 3,000. Mod-risk, MFI 500-3,000. For SA IMM: Strong risk >_5000mfi, Moderate Risk 2000-4999mfi, Weak Risk 500-1999mfi Blood BLOOD SPECIMEN / Unknown Venipuncture / Unknown 10/04/2024 9:01 AM CDT 10/04/2024 9:07 AM CDT Conrado Evans MD LAB - IMMUNOLOGY ORDERAB LES Final Result [facility] Immunology/Histocomp atability CLIA: [id number] [facility] [address], [address] [place] [address], [facility] [phone] * HLA Jairo Class I, Single Antigen (10/04/2024 9:01 AM CDT) 1 TEST METHOD SA EDTA FCS 10/05/2024 5:09 PM CDT [facility] SA 1 CELL Class I 10/05/2024 5:09 PM CDT [facility] SA1 HI RISK JAIRO None 5:09 PM CDT [facility] SA1 MOD RISK JAIRO Cw:18 10/05/2024 5:09 PM CDT [facility] SA 1 COMMENTS HLA PRA Test performed by modified testing procedure that may also include pretreatment of serum. Pretreatment may be the addition of calf serum, EDTA, and/or adsorption. High-risk, MFI > 3,000. Mod-risk, MFI 500-3,000. 10/05/2024 5:09 PM CDT [facility] Comment:HLA PRA Test perform ed by modified testing procedure that may also include pretreatment of serum. Pretreatment may be the addition of calf serum, EDTA, and/or adsorption. For SA FCS: High-risk, MFI > 3,000. Mod-risk, MFI 500-3,000. For SA IMM: Strong risk >_5000mfi, Moderate Risk 2000-4999mfi, Weak Risk 500-1999mfi Blood BLOOD SPECIMEN / Unknown Venipuncture / Unknown 10/04/2024 9:01 AM CDT 10/04/2024 9:07 AM CDT Conrado Evans MD LAB - IMMUNOLOGY ORDERAB LES Final Result U [facility] Immunology/Histocomp atability CLIA: [id number] [employer] [address] [facility] [address], Room [address] [phone] * HLA Donor Specific Antibody (10/04/2024 9:01 AM CDT) Donor Identification 01/21/2014 10/05/2024 5:09 PM CDT [facility] Organ Kidney/Pancre as 10/05/2024 5:09 PM CDT [facility] DSA Present NO 10/05/2024 5:09 PM CDT [facility] DSA Comments Flow Single Antigen Beads assays are intended for detection/mani ntification of IgG anti-HLA antibodies. Mfi values may not accurately quantify donor-specifi c antibody levels in all instances. 10/05/2024 5:09 PM CDT [facility] DSA Test Method SA EDTA FCS 10/06/19 5:09 PM CDT [facility] Blood BLOOD SPECIMEN / Unknown Venipuncture / Unknown 10/04/2024 9:01 AM CDT 10/04/2024 9:07 AM CDT us Conrado Evans MD LAB - IMMUNOLOGY ORDERAB LES Final Result U [facility] Immunology/Histocomp atability CLIA: [id number] [facility] [address] [facility] Unit [facility], Room [address] [phone] * PRA Donor Specific Antibody (10/04/2024 9:01 AM CDT) Blood BLOOD SPECIMEN / Unknown Venipuncture / Unknown 10/04/2024 9:01 AM CDT 10/04/2024 9:07 AM CDT us Conrado Evans MD LAB - IMMUNOLOGY ORDERAB LES Final Result HLA LAB[facility]ATORY Immunology/Histocomp atability CLIA: [id number] [facility] 500 [facility], Room [address] [phone] * (ABNORMAL) CBC with platelets and differential (10/04/2024 9:01 AM CDT) [facility] WBC Count 5.6 4.0 - 11.0 10e3/uL 10/04/2024 9:29 AM CDT [facility] RBC Count 2.83(L) 3.80 - 5.20 10e6/uL 10/04/2024 9:29 AM CDT [facility] Hemoglobin 7.2(L) 11.7 - 15.7 g/dL 10/04/2024 9:29 AM CDT [facility] Hematocrit 23.8(L) 35.0 - 47.0 % 10/04/2024 9:29 AM CDT [facility] MCV 84 78 - 100 fL 10/04/2024 9:29 AM CDT [facility] MCH 25.4(L) 26.5 - 33.0 pg 10/04/2024 9:29 AM CDT [facility] MCHC 30.3(L) 31.5 - 36.5 g/dL 10/04/2024 9:29 AM CDT [facility] RDW 15.0 10.0 - 15.0 % 10/04/2024 9:29 AM CDT [facility] Platelet Count 273 150 - 450 10e3/uL 10/04/2024 9:29 AM CDT [facility] % Neutrophils 49 % 10/04/2024 9:29 AM CDT [facility] % Lymphocytes 30 % 10/04/2024 9:29 AM CDT [facility] % Monocytes 17 % 10/04/2024 9:29 AM CDT [facility] % Eosinophils 2 % 10/04/2024 9:29 AM CDT [facility] % Basophils 1 % 10/04/2024 9:29 AM CDT [facility] % Immature Granulocytes 2 % 10/04/2024 9:29 AM CDT [facility] NRBCs per 100 WBC 0 <1 /100 025 9:29 AM CDT [facility] Absolute Neutrophils 2.7 1.6 - 8.3 10e3/uL 10/04/2024 9:29 AM CDT [facility] Absolute Lymphocytes 1.7 0.8 - 5.3 10e3/uL 10/04/2024 9:29 AM CDT [facility] Absolute Monocytes 0.9 0.0 - 1.3 10e3/uL 10/04/2024 9:29 AM CDT [facility] Absolute Eosinophils 0.1 0.0 - 0.7 10e3/uL 10/04/2024 9:29 AM CDT [facility] Absolute Basophils 0.0 0.0 - 0.2 10e3/uL 10/04/2024 9:29 AM CDT [facility] Absolute Immature Granulocytes 0.1 <=0.4 10e3/uL 10/04/2024 9:29 AM CDT [facility] Absolute NRBCs 0.0 10e3/uL 10/04/2024 9:29 AM CDT [facility] Blood BLOOD SPECIMEN / Unknown Venipuncture / Unknown 10/04/2024 9:01 AM CDT 10/04/2024 9:08 AM CDT Conrado Evans MD LAB - BLOOD ORDERABLES F inal Result [facility] LABORATORY [facility] [place] [facility] [address] [facility], [address] [place] [phone] * BK Virus Quantitative, PCR (10/04/2024 9:01 AM CDT) BK Virus DNA IU/mL Not Detected Not Detected IU/mL 10/05/2024 10:49 AM CDT [facility] BK Virus Specimen Type Blood 10/05/2024 10:49 AM CDT [facility] Blood BLOOD SPECIMEN / Unknown Venipuncture / Unknown 10/04/2024 9:01 AM CDT 10/04/2024 9:08 AM CDT Narrative [facility] - 10/05/2024 10:49 AM CDT The karen BKV assay is an FDA-approved, in vitro nucleic acid amplification test for the quantification of BK virus (BKV) DNA in human EDTA plasma and urine stabilized in karen PCR Media, using the Saritha karen instrument system for automated viral nucleic acid extraction, purification, amplification, and detection of the viral nucleic acid target. This dual-target polymerase chain reaction (PCR) assay amplifies 2 highly conserved target regions within the BKV genome (small t-antigen and VP2 regions) to detect and quantify, but not discriminate BKV subtypes I, II, III and IV. The test is intended for use as an aid in the management of BKV in transplant patients. The assay is calibrated to the World Health Organization International Standard for BKV DNA. Titer results are reported in IU/mL. Conrado Evans MD LAB - MICRO GENERAL ORDE RABLES Final Result [facility] [address] [facility], [address] [place] [address] * (ABNORMAL) Basic metabolic panel (10/04/2024 9:01 AM CDT) Sodium 143 135 - 145 mmol/L 10/04/2024 9:51 AM CDT [facility] Potassium 4.8 3.4 - 5.3 mmol/L 10/04/2024 9:51 AM CDT [facility] Chloride 110(H) 98 - 107 mmol/L 10/04/2024 9:51 AM CDT [facility] Carbon Dioxide (CO2) 24 22 - 29 mmol/L 10/04/2024 9:51 AM CDT [facility] Anion Gap 9 7 - 15 mmol/L 10/04/2024 9:51 AM CDT [facility] Urea Nitrogen 45.7(H) 6.0 - 20.0 mg/dL 10/04/2024 9:51 AM CDT [facility] Creatinine 1.70(H) 0.51 - 0.95 mg/dL 10/04/2024 9:51 AM CDT [facility] GFR Estimate 34(L) >60 mL/min/1.7 3m2 10/04/2024 9:51 AM CDT [facility] Comment:eGFR calculated 2020 CKD-EPI equation. Calcium 9.2 8.8 - 10.4 mg/dL 10/04/2024 9:51 AM CDT [facility] Glucose 133(H) 70 - 99 mg/dL 10/04/2024 9:51 AM CDT [facility] Blood BLOOD SPECIMEN / Unknown Venipuncture / Unknown 10/04/2024 9:01 AM CDT 10/04/2024 9:12 AM CDT us Conrado Evans MD LAB - BLOOD ORDERABLES F inal Result [facility] LAB[facility] [place] [facility] [address] [facility], [address] [place] [address] * INR (10/04/2024 9:01 AM CDT) INR 1.04 0.85 - 1.15 10/04/2024 9:47 AM CDT [facility] PT 13.6 11.8 - 14.8 Seconds 10/04/2024 9:47 AM CDT [facility] Blood BLOOD SPECIMEN / Unknown Venipuncture / Unknown 10/04/2024 9:01 AM CDT 10/04/2024 9:14 AM CDT us Lakesha Cavanaugh PA-C LAB - BLOOD ORDERABLES Fi nal Result [facility] [place] [facility] [address] [facility], [address] [place] [address], [facility] documented in this encounter Visit Diagnoses Diagnosis Kidney replaced by transplant Aftercare following organ transplant History of anemia due to CKD documented in this encounter Administered Medications Inactive Administered Medications - up to 3 most recent administrations Medication Order MAR Action Action Date Dose Rate Site acetaminophen (TYLENOL) tablet 650 mg 650 mg, Oral, ONCE, On Thu10/04/24 at 1200, For 1 dose, Maximum acetaminophen dose from all sources = 75 mg/kg/day not to exceed 4 grams/day. $Given 10/04/2024 12:02 PM CDT 650 mg fentaNYL (PF) (SUBLIMAZE) injection 25-50 mcg 25-50 mcg, Intravenous, EVERY 5 MIN PRN, severe pain, If inadequate response may repeat 25 mcg IV slowly every 5 min PRN severe pain; when verbally requested by provider., Administer over 2 Minutes, Starting on Thu10/04/24 at 0907, Doses can be exceeded under direct oversight of patient by physician., IR Intra-procedure $Given 10/04/2024 10:27 AM CDT 50 mcg $Given 10/04/2024 10:19 AM CDT 50 mcg flumazenil (ROMAZICON) injection 0.2 mg 0.2 mg, Intravenous, EVERY 1 MIN PRN, benzodiazepine reversal, If inadequate response after 45 seconds, may repeat 0.2 mg IV every 1 minute PRN oversedation., Administer over 1 Minutes, Starting on Thu10/04/24 at 0907, Give over 15 seconds. Maximum total dose of 1 mg. Continue monitoring until discharge criteria met for a minimum of 2 hours. Use with caution in patients on benzodiazepine therapy., IR Intra-procedure lidocaine (LMX4) cream Topical, EVERY 1 HOUR PRN, pain, with VAD insertion, Starting on Thu10/04/24 at 0841, Apply at least 30 minutes prior to VAD insertion in divided doses as needed for size of site for insertion. MAX Dose: 2.5 g ( of 5 g tube) Do NOT give if patient has a history of allergy to any local anesthetic or any edgardo product. Do NOT use both lidocaine intradermal/subcutaneous injection and the lidocaine cream on the same site., IR Pre-procedure lidocaine 1 % 0.1-1 mL 0.1-1 mL, Other, EVERY 1 HOUR PRN, mild pain with VAD insertion, Starting on Thu10/04/24 at 0841, MAX dose 1 mL subcutaneous OR intradermal along the side of the vein in divided doses as needed for VAD insertion. Do NOT give if patient has a history of allergy to any local anesthetic or any edgardo product. Do NOT use both lidocaine intradermal/subcutaneous injection and the lidocaine cream on the same site., IR Pre-procedure lidocaine 1 % 1-30 mL 1-30 mL, Intradermal, ONCE PRN, local anesthetic. When verbally ordered by prescriber during the procedure., Starting on Thu10/04/24 at 0907, For 1 dose, Dose to be divided into smaller volumes appropriate for the procedure. Provider to administer intradermally., IR Intra-procedure $Given by Other 10/04/2024 10:27 AM CDT 8 mLs midazolam (VERSED) injection 0.5-2 mg 0.5-2 mg, Intravenous, Administer over 1 Minutes, EVERY 4 MIN PRN, sedation, If inadequate response may repeat 0.5 mg IV slowly every 4 minutes PRN sedation until desired response; when verbally requested by provider., Starting on Thu10/04/24 at 0907, Doses can be exceeded under direct oversight of patient by physician. This drug may cause significant respiratory depression. Monitor respiratory status and vital signs carefully for 1 hour after each dose., IR Intra-procedure $Given 10/04/2024 10:27 AM CDT 1 mg $Given 10/04/2024 10:18 AM CDT 1 mg naloxone (NARCAN) injection 0.2 mg 0.2 mg, Intravenous, EVERY 2 MIN PRN, opioid reversal, Starting on Thu10/04/24 at 0907, Administer intravenous route when available and notify provider when administered. For unintended sedation or respiratory depression if all of the below criteria are met: ~ respiratory rate LESS than or EQUAL to 8. ~SaO2 less than 92% and or/end-tidal CO2 is greater than 50. ~ the patient is receiving an opioid, has unintended sedations assessed as RASS (-3), and is currently not on mechanical ventilation. RASS scale moderate (-3) is movement or eye opening to voice but no eye contact. Patient Monitoring Once the patient has demonstrated a response to the naloxone, continue to monitor respiratory rate, depth, oxygen saturation and end-tidal CO2 (if available) every 15 minutes x 2, then every 30 minutes x 2, then every 1 hour x 1 after each naloxone dose. Consider transfer to ICU if patient respiratory parameters have not improved after 4 naloxone doses., IR Intra-procedure naloxone (NARCAN) injection 0.2 mg 0.2 mg, Intramuscular, EVERY 2 MIN PRN, opioid reversal, Starting on Thu10/04/24 at 0907, Administer intramuscular if an intravenous route is not available and notify provider when administered. For unintended sedation or respiratory depression if all of the below criteria are met: ~ respiratory rate LESS than or EQUAL to 8. ~SaO2 less than 92% and or/end-tidal CO2 is greater than 50. ~ the patient is receiving an opioid, has unintended sedations assessed as RASS (-3), and is currently not on mechanical ventilation. RASS scale moderate (-3) is movement or eye opening to voice but no eye contact. Patient Monitoring Once the patient has demonstrated a response to the naloxone, continue to monitor respiratory rate, depth, oxygen saturation and end-tidal CO2 (if available) every 15 minutes x 2, then every 30 minutes x 2, then every 1 hour x 1 after each naloxone dose. Consider transfer to ICU if patient respiratory parameters have not improved after 4 naloxone doses., IR Intra-procedure naloxone (NARCAN) injection 0.4 mg 0.4 mg, Intravenous, EVERY 2 MIN PRN, opioid reversal, Starting on Thu10/04/24 at 0907, Administer intravenous route when available and notify provider when administered. For unintended sedation or respiratory depression if all of the below criteria are met: ~ respiratory rate LESS than or EQUAL to 8. ~ SaO2 less than 92% and or/end-tidal CO2 is greater than 50. ~ the patient is receiving an opioid, has unintended sedation assessed as RASS (-4) or (-5) and patient is currently not on mechanical ventilation. RASS scale (-4) is deep sedation with no response to voice but movement or eye opening to physical stimulation. RASS scale (-5) is unarousable. Patient Monitoring Once the patient has demonstrated a response to the naloxone, continue to monitor respiratory rate, depth, oxygen saturation and end-tidal CO2 (if available) every 15 minutes x 2, then every 30 minutes x 2, then every 1 hour x 1 after each naloxone dose. Consider transfer to ICU if patient respiratory parameters have not improved after 4 naloxone doses., IR Intra-procedure naloxone (NARCAN) injection 0.4 mg 0.4 mg, Intramuscular, EVERY 2 MIN PRN, opioid reversal, Starting on Thu10/04/24 at 0907, Administer intramuscular if an intravenous route is not available and notify provider when administered. For unintended sedation or respiratory depression if all of the below criteria are met: ~ respiratory rate LESS than or EQUAL to 8. ~ SaO2 less than 92% and or/end-tidal CO2 is greater than 50. ~ the patient is receiving an opioid, has unintended sedation assessed as RASS (-4) or (-5) and patient is currently not on mechanical ventilation. RASS scale (-4) is deep sedation with no response to voice but movement or eye opening to physical stimulation. RASS scale (-5) is unarousable. Patient Monitoring Once the patient has demonstrated a response to the naloxone, continue to monitor respiratory rate, depth, oxygen saturation and end-tidal CO2 (if available) every 15 minutes x 2, then every 30 minutes x 2, then every 1 hour x 1 after each naloxone dose. Consider transfer to ICU if patient respiratory parameters have not improved after 4 naloxone doses., IR Intra-procedure sodium chloride (PF) 0.9% PF flush 3 mL 3 mL, Intracatheter, EVERY 8 HOURS SCHEDULED, First dose on Thu10/04/24 at 1400, to lock peripheral IV dormant line, IR Pre-procedure sodium chloride (PF) 0.9% PF flush 3 mL 3 mL, Intracatheter, EVERY 1 MIN PRN, line flush, other, to ensure patency or to lock dormant line, Starting on Thu10/04/24 at 0841, IR Pre-procedure documented in this encounter Active and Recently Administered Medications Times are shown in CDT. Scheduled Medication Order 10/02/2024 10/03/2024 10/04/2024 acetaminophen (TYLENOL) tablet 650 mg (COMPLETED) 650 mg, Oral, ONCE, On Thu10/04/24 at 1200, For 1 dose, Maximum acetaminophen dose from all sources = 75 mg/kg/day not to exceed 4 grams/day. 1202 ($Given - Provi isha: Laurence Delgado RN) sodium chloride (PF) 0.9% PF flush 3 mL 3 mL, Intracatheter, EVERY 8 HOURS SCHEDULED, First dose on Thu10/04/24 at 1400, to lock peripheral IV dormant line, IR Pre-procedure 1400 (Canceled Entry - Provider: Orders Generic Provider - Comment: Automatically canceled at discontinue of medication order) PRN Medication Order 10/02/2024 10/03/2024 10/04/2024 fentaNYL (PF) (SUBLIMAZE) injection 25-50 mcg 25-50 mcg, Intravenous, EVERY 5 MIN PRN, severe pain, If inadequate response may repeat 25 mcg IV slowly every 5 min PRN severe pain; when verbally requested by provider., Administer over 2 Minutes, Starting on Thu10/04/24 at 0907, Doses can be exceeded under direct oversight of patient by physician., IR Intra-procedure 1019 ($Given - Provi isha: Yoan Avery RN)1027 ($Given - Provider: Yoan Avery RN) flumazenil (ROMAZICON) injection 0.2 mg 0.2 mg, Intravenous, EVERY 1 MIN PRN, benzodiazepine reversal, If inadequate response after 45 seconds, may repeat 0.2 mg IV every 1 minute PRN oversedation., Administer over 1 Minutes, Starting on Thu10/04/24 at 0907, Give over 15 seconds. Maximum total dose of 1 mg. Continue monitoring until discharge criteria met for a minimum of 2 hours. Use with caution in patients on benzodiazepine therapy., IR Intra-procedure lidocaine (LMX4) cream Topical, EVERY 1 HOUR PRN, pain, with VAD insertion, Starting on Thu10/04/24 at 0841, Apply at least 30 minutes prior to VAD insertion in divided doses as needed for size of site for insertion. MAX Dose: 2.5 g ( of 5 g tube) Do NOT give if patient has a history of allergy to any local anesthetic or any edgardo product. Do NOT use both lidocaine intradermal/subcutaneous injection and the lidocaine cream on the same site., IR Pre-procedure lidocaine 1 % 0.1-1 mL 0.1-1 mL, Other, EVERY 1 HOUR PRN, mild pain with VAD insertion, Starting on Thu10/04/24 at 0841, MAX dose 1 mL subcutaneous OR intradermal along the side of the vein in divided doses as needed for VAD insertion. Do NOT give if patient has a history of allergy to any local anesthetic or any edgardo product. Do NOT use both lidocaine intradermal/subcutaneous injection and the lidocaine cream on the same site., IR Pre-procedure lidocaine 1 % 1-30 mL (COMPLETED) 1-30 mL, Intradermal, ONCE PRN, local anesthetic. When verbally ordered by prescriber during the procedure., Starting on Thu10/04/24 at 0907, For 1 dose, Dose to be divided into smaller volumes appropriate for the procedure. Provider to administer intradermally., IR Intra-procedure 1027 ($Given by [facility] r - Provider: Yoan Avery RN) midazolam (VERSED) injection 0.5-2 mg 0.5-2 mg, Intravenous, Administer over 1 Minutes, EVERY 4 MIN PRN, sedation, If inadequate response may repeat 0.5 mg IV slowly every 4 minutes PRN sedation until desired response; when verbally requested by provider., Starting on Thu10/04/24 at 0907, Doses can be exceeded under direct oversight of patient by physician. This drug may cause significant respiratory depression. Monitor respiratory status and vital signs carefully for 1 hour after each dose., IR Intra-procedure 1018 ($Given - Provi isha: Yoan Avery RN)1027 ($Given - Provider: Yoan Avery RN) naloxone (NARCAN) injection 0.2 mg(Linked Group 1) 0.2 mg, Intravenous, EVERY 2 MIN PRN, opioid reversal, Starting on Thu10/04/24 at 0907, Administer intravenous route when available and notify provider when administered. For unintended sedation or respiratory depression if all of the below criteria are met: ~ respiratory rate LESS than or EQUAL to 8. ~SaO2 less than 92% and or/end-tidal CO2 is greater than 50. ~ the patient is receiving an opioid, has unintended sedations assessed as RASS (-3), and is currently not on mechanical ventilation. RASS scale moderate (-3) is movement or eye opening to voice but no eye contact. Patient Monitoring Once the patient has demonstrated a response to the naloxone, continue to monitor respiratory rate, depth, oxygen saturation and end-tidal CO2 (if available) every 15 minutes x 2, then every 30 minutes x 2, then every 1 hour x 1 after each naloxone dose. Consider transfer to ICU if patient respiratory parameters have not improved after 4 naloxone doses., IR Intra-procedure naloxone (NARCAN) injection 0.2 mg(Linked Group 1) 0.2 mg, Intramuscular, EVERY 2 MIN PRN, opioid reversal, Starting on Thu10/04/24 at 0907, Administer intramuscular if an intravenous route is not available and notify provider when administered. For unintended sedation or respiratory depression if all of the below criteria are met: ~ respiratory rate LESS than or EQUAL to 8. ~SaO2 less than 92% and or/end-tidal CO2 is greater than 50. ~ the patient is receiving an opioid, has unintended sedations assessed as RASS (-3), and is currently not on mechanical ventilation. RASS scale moderate (-3) is movement or eye opening to voice but no eye contact. Patient Monitoring Once the patient has demonstrated a response to the naloxone, continue to monitor respiratory rate, depth, oxygen saturation and end-tidal CO2 (if available) every 15 minutes x 2, then every 30 minutes x 2, then every 1 hour x 1 after each naloxone dose. Consider transfer to ICU if patient respiratory parameters have not improved after 4 naloxone doses., IR Intra-procedure naloxone (NARCAN) injection 0.4 mg(Linked Group 1) 0.4 mg, Intravenous, EVERY 2 MIN PRN, opioid reversal, Starting on Thu10/04/24 at 0907, Administer intravenous route when available and notify provider when administered. For unintended sedation or respiratory depression if all of the below criteria are met: ~ respiratory rate LESS than or EQUAL to 8. ~ SaO2 less than 92% and or/end-tidal CO2 is greater than 50. ~ the patient is receiving an opioid, has unintended sedation assessed as RASS (-4) or (-5) and patient is currently not on mechanical ventilation. RASS scale (-4) is deep sedation with no response to voice but movement or eye opening to physical stimulation. RASS scale (-5) is unarousable. Patient Monitoring Once the patient has demonstrated a response to the naloxone, continue to monitor respiratory rate, depth, oxygen saturation and end-tidal CO2 (if available) every 15 minutes x 2, then every 30 minutes x 2, then every 1 hour x 1 after each naloxone dose. Consider transfer to ICU if patient respiratory parameters have not improved after 4 naloxone doses., IR Intra-procedure naloxone (NARCAN) injection 0.4 mg(Linked Group 1) 0.4 mg, Intramuscular, EVERY 2 MIN PRN, opioid reversal, Starting on Thu10/04/24 at 0907, Administer intramuscular if an intravenous route is not available and notify provider when administered. For unintended sedation or respiratory depression if all of the below criteria are met: ~ respiratory rate LESS than or EQUAL to 8. ~ SaO2 less than 92% and or/end-tidal CO2 is greater than 50. ~ the patient is receiving an opioid, has unintended sedation assessed as RASS (-4) or (-5) and patient is currently not on mechanical ventilation. RASS scale (-4) is deep sedation with no response to voice but movement or eye opening to physical stimulation. RASS scale (-5) is unarousable. Patient Monitoring Once the patient has demonstrated a response to the naloxone, continue to monitor respiratory rate, depth, oxygen saturation and end-tidal CO2 (if available) every 15 minutes x 2, then every 30 minutes x 2, then every 1 hour x 1 after each naloxone dose. Consider transfer to ICU if patient respiratory parameters have not improved after 4 naloxone doses., IR Intra-procedure sodium chloride (PF) 0.9% PF flush 3 mL 3 mL, Intracatheter, EVERY 1 MIN PRN, line flush, other, to ensure patency or to lock dormant line, Starting on Thu10/04/24 at 0841, IR Pre-procedure Linked Groups Order Group 1: naloxone (NARCAN) injection 0.2 mgJump to med 0.2 mg, Intravenous, EVERY 2 MIN PRN, opioid reversal, Starting on Thu10/04/24 at 0907, Administer intravenous route when available and notify provider when administered. For unintended sedation or respiratory depression if all of the below criteria are met: ~ respiratory rate LESS than or EQUAL to 8. ~SaO2 less than 92% and or/end-tidal CO2 is greater than 50. ~ the patient is receiving an opioid, has unintended sedations assessed as RASS (-3), and is currently not on mechanical ventilation. RASS scale moderate (-3) is movement or eye opening to voice but no eye contact. Patient Monitoring Once the patient has demonstrated a response to the naloxone, continue to monitor respiratory rate, depth, oxygen saturation and end-tidal CO2 (if available) every 15 minutes x 2, then every 30 minutes x 2, then every 1 hour x 1 after each naloxone dose. Consider transfer to ICU if patient respiratory parameters have not improved after 4 naloxone doses., IR Intra- procedure Or naloxone (NARCAN) injection 0.4 mgJump to med 0.4 mg, Intravenous, EVERY 2 MIN PRN, opioid reversal, Starting on Thu10/04/24 at 0907, Administer intravenous route when available and notify provider when administered. For unintended sedation or respiratory depression if all of the below criteria are met: ~ respiratory rate LESS than or EQUAL to 8. ~ SaO2 less than 92% and or/end-tidal CO2 is greater than 50. ~ the patient is receiving an opioid, has unintended sedation assessed as RASS (-4) or (-5) and patient is currently not on mechanical ventilation. RASS scale (-4) is deep sedation with no response to voice but movement or eye opening to physical stimulation. RASS scale (-5) is unarousable. Patient Monitoring Once the patient has demonstrated a response to the naloxone, continue to monitor respiratory rate, depth, oxygen saturation and end-tidal CO2 (if available) every 15 minutes x 2, then every 30 minutes x 2, then every 1 hour x 1 after each naloxone dose. Consider transfer to ICU if patient respiratory parameters have not improved after 4 naloxone doses., IR Intra-procedure Or naloxone (NARCAN) injection 0.2 mgJump to med 0.2 mg, Intramuscular, EVERY 2 MIN PRN, opioid reversal, Starting on Thu10/04/24 at 0907, Administer intramuscular if an intravenous route is not available and notify provider when administered. For unintended sedation or respiratory depression if all of the below criteria are met: ~ respiratory rate LESS than or EQUAL to 8. ~SaO2 less than 92% and or/end-tidal CO2 is greater than 50. ~ the patient is receiving an opioid, has unintended sedations assessed as RASS (-3), and is currently not on mechanical ventilation. RASS scale moderate (-3) is movement or eye opening to voice but no eye contact. Patient Monitoring Once the patient has demonstrated a response to the naloxone, continue to monitor respiratory rate, depth, oxygen saturation and end-tidal CO2 (if available) every 15 minutes x 2, then every 30 minutes x 2, then every 1 hour x 1 after each naloxone dose. Consider transfer to ICU if patient respiratory parameters have not improved after 4 naloxone doses., IR Intra- procedure Or naloxone (NARCAN) injection 0.4 mgJump to med 0.4 mg, Intramuscular, EVERY 2 MIN PRN, opioid reversal, Starting on Thu10/04/24 at 0907, Administer intramuscular if an intravenous route is not available and notify provider when administered. For unintended sedation or respiratory depression if all of the below criteria are met: ~ respiratory rate LESS than or EQUAL to 8. ~ SaO2 less than 92% and or/end-tidal CO2 is greater than 50. ~ the patient is receiving an opioid, has unintended sedation assessed as RASS (-4) or (-5) and patient is currently not on mechanical ventilation. RASS scale (-4) is deep sedation with no response to voice but movement or eye opening to physical stimulation. RASS scale (-5) is unarousable. Patient Monitoring Once the patient has demonstrated a response to the naloxone, continue to monitor respiratory rate, depth, oxygen saturation and end-tidal CO2 (if available) every 15 minutes x 2, then every 30 minutes x 2, then every 1 hour x 1 after each naloxone dose. 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 Portable Relationship Specialty Start Date End Date Robert Marley MD [facility] [address] [place] [address] PCP - General Family Practice 12/08/10 Tayo Lacey MD [facility] [address] [place] [address] Cardiology 08/30/14 Christopher Quiroga MD [facility] [address] [place] [address] Oncology 07/02/16 Lance Simpson PA-C [address] [place] [id number] Physician Flatwork Catcher Physician Flatwork Catcher 01/07/18 Sherri Kingston PA [address] [place] [address] [place] [address] Physician Flatwork Catcher Physician Flatwork Catcher 12/21/18 Delvin Bob MD [address] [place] [address] [address] [place] [address] Internal Medicine 11/11/19 Love Hernandez PA-C [id number] [place], [place] [address] Physician Flatwork Catcher Urology 12/01/22 Love Hernandez PA-C [id number] [place], [place] [address] Assigned Surgical Provider 01/17/23 [place] [id number] [place] [address] Assigned Gastroenterology Provider 07/23/23 Everardo Grant MD [address] [place] [address] [place] [address] Physician Infectious Diseases 09/23/23 Rey Billings MD [address] [place] [address] Assigned Infectious Disease Provider 10/23/23 Conrado Evans MD [address] [place] [address] [address] [facility] [address] [place] [address] Nephrology 08/25/24 Delvin Lopez MD [address] [place] [address] Nephrology 08/25/24 documented as of this encounter
--- OUTSIDE RECORDS SUMMARY | 2024-10-06 16:00 | XMS_ITS | Encounter Summary ---
Author Organization [facility] Address [address] [place] [address] Care Team Providers Care Credit Verifier Name Role Phone Robert Marley MD Primary Care Provider [phone] Tayo Lacey MD Unavailable [phone] Christopher Quiroga MD Unavailable Lance Simpson PA-C Unavailable [phone] Sherri Kingston Unavailable [phone] Delvin Bob MD Unavailable [phone] Love Hernandez-C Unavailable Love Hernandez-C Unavailable [phone] Gordy Nickerson MD Unavailable Everardo Grant MD Unavailable Rey Billings MD Unavailable [phone] Conrado Evans MD Unavailable [phone] Delvin Lopez MD Unavailable [phone] Reason for Referral * Mental Health Outpatient (Routine: Next available opening) - Pending Review Specialty Diagnoses / Procedures Referred By Contchano t Referred To Contact Behavioral Health Diagnoses Depression, unspecified depression type Delvin Lopez MD [address] [place] [address] Phone: tel: fax: Referral ID Status Reason Start Date Expiration Date V isits Requested Visits Authorized [id number] Pending Review 10/06/2024 10/06/2025 1 1 Question Answer Services: Assess/Evaluate for appropriate service (non-medication assessment) My Clinical Question Is: depression Patient Scheduling Instructions: [facility] will call you to coordinate your care as prescribed by your provider. If you don't hear from a pharmaceutical sales representative within 2 business days, please call . Only select yes if the patient has already been scheduled and requires a referral for insurance. If yes is selected, the referral will NOT route to scheduling for outreach. Yes Comments Please be aware that coverage of these services is subject to the terms and limitations of your health insurance plan. Call member services at your health plan with any benefit or coverage questions. [facility] will call you to coordinate your care as prescribed by your provider. If you don't hear from a pharmaceutical sales representative within 2 business days, please call . Reason for Visit * Reason Comments RECHECK Encounter Details Date Type Department Care Team (Late st Contact Info) Description 10/06/2024 4:00 PM CDT Virtual Visit [facility] [address] [place] [address] Conrado Evans MD [address] [place] [address] [address] [place], [place] [address] Delvin Lopez MD [address] [place] [address] [phone] 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); EBV (Patrick-Cole virus) viremia; Depression, unspecified depression type; History of anemia due to CKD; Persistent proteinuria; Stage 3b chronic kidney disease (H); Aftercare following organ transplant; Immunosuppression; Pancreas transplanted (H); Neurogenic orthostatic hypotension (H) Social History Tobacco Use Types Packs/Day [...] on file 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 Gender Identity Not on file Sexual Orientation Not on file Occupation Industry Job Start Date Job End Date Not on file Not on file Not on file Not on file documented as of this encounter Patient Instructions * Patient Instructions* Delvin Lopez MD - 10/06/2024 4:00 PM CDT Reduce sirolimus to 2 mg po daily Repeat labs in 2 weeks with sirolimus and tacrolimus levels Transplant Patient Information Your Post Receiver is: Susan Pelletier You and your care team can contact your education and training coordinator Thursday - Thursday, 8am - 5pm at [phone] (Option 2 to reach the coordinator or Option 4 to schedule an appointment). You can also reach your care team online via Streetline. After hours for urgent matters, please call [facility] at [phone]. documented in this encounter Progress Notes * Delvin Lopez MD - 10/06/2024 4:00 PM CDT Images from the original note were not included. Virtual Visit Details Type of service: Video Visit Video Start Time: 4:01 pm Video End Time:4:26 pm Originating Location (pt. Location): Home Distant Location (provider location): On-site Platform used for Video Visit: [facility] VISIT Recommend: - reduce sirolimus to goal 3-5 - anemia w/up: repeat cbc and add iron studies, haptoglobin, LDH, smear, retic, vit B12, folate & anemic clinic f/up. Low Hb ~7 noted prior to kidney bx . Monthly labs . UPC . May not tolerate the addition of ACEi/ARB, SGLT2i to control proteinuria due to orthostatic hypotension Assessment & Plan # DDKT (SPK): Trend up in Cr since 09/07/2024 up to 1.9 with worsening proteinuria, kidney bx with ATI, chronic changes 20% glomerulosclerosis, severe vascular changes cv3 and ah3 - CKD stage 3b: Baseline Creatinine: ~ 1.6-1.8 - Proteinuria: 1.9 g - DSA: neg on last check, hx of Low level DSA (<1000 mfi) to DPB1, dnDSA at that time - BK Viremia: Not checked recently due to time from transplant - Kidney Tx Biopsy: 2024 (ATI, chronic changes-20% glomerulosclerosis, severe vascular changes cv3 ah3) & 2019: ATI, CaP crystals, mild IFTA # Pancreas Tx (SPK): - Pancreatic Exocrine Drainage: Enteric drained - Blood glucose: Euglycemia On insulin: No - HbA1c: Trend up Latest HbA1c: 5.3% - Pancreatic enzymes: Stable - DSA: neg on last check, hx of Low level DSA (<1000 mfi) to DPB1, dnDSA at that time - Pancreas Tx Biopsy: No # Immunosuppression: Tacrolimus immediate release (goal 5-8) and Sirolimus (goal 3-5) - Historical Changes: MMF switched to mTOR due to GI intolerance - Continue with intensive monitoring of immunosuppression for efficacy and toxicity. - Changes: Yes - reduce sirolimus dose to goal close 3 given worsening proteinuria and decline in eGFR, chronic changes on bx. # Infection Prophylaxis: - PJP: None. Last CD4 Level: 1261 () # Neurogenic Orthostatic Hypotension: Orthostatic hypotension; Goal BP: due to symptoms and variability, goal to keep in reasonable range - Changes: severe symptoms, wheelchair dependent. Previously on Midodrine, Florinef, and droxidopa 600mg daily without improvement. # Anemia of hx of Autoimmune Hemolytic Anemia - treated with steroids and rituximab in 2016, ultimately underwent splenectomy in 2016. # Hx of Recurrent Clostridium Difficile Infections # Chronic Diarrhea: Has been followed by [facility] in the past. -TSH and celiac serologies were negative in 10/2021 - Creon 24 TID # Mineral Bone Disorder: - Secondary renal hyperparathyroidism; PTH level: Not checked recently On treatment: None - Vitamin D; level: Normal On supplement: No - Calcium; level: Normal On supplement: No - Phosphorus; level: Normal On supplement: No # Electrolytes: - Potassium; level: Normal On supplement: No - Magnesium; level: Normal On supplement: No - Bicarbonate; level: Low normal On supplement: No - Sodium; level: High normal # CAD: s/p PCI (2012) , asymptomatic # H/o DVT/PE: . On apixaban. # EBV Viremia: neg on last check 2024 # GERD: Asymptomatic on PPI. # Hx of Abnormal LFTs: Previous liver biopsy 12/2015 showed centrilobular hepatocyte atrophy and necrosis with marked iron deposition. No evidence of hemophagocytic lymphohistiocytosis. # Hx of Recurrent UTIs: no recent recurrence, prior PVR normal , referred to urology but didn't complete cystoscopy # Transplant History: Etiology of Kidney Failure: Diabetes mellitus type 1 Tx: SPK Transplant: 01/21/2014 (Kidney / Pancreas) Significant transplant-related complications: EBV Viremia, Recurrent UTIs and Frequent Infections Delvin Carpenter MD Chief Complaint Ms. Monzon is a 58 year old here for kidney transplant and immunosuppression management. History of Present Illness Feels ok overall, main concerns discussed today: - remains wheelchair dependent due to severe orthostatic hypotension resistant to medical treatmentoptions - diarrhea controlled with scheduled creon+lomotil labs recent decline in GFR : CR up to 1.9 and worsening proteinuria up to 1.9 g last month which prompted a kidney biopsy-which showed ATI and chronic changes 20% glomerulosclerosis and severe vascular changes Denies any fevers, chills, weight loss, night sweats. No chest pain, dyspnea, leg swelling. No recent hospitalization. 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) Iron overload due to repeated red blood cell transfusions Aftercare following organ transplant Autoimmune hemolytic anemia (H) Chronic pain due to trauma right LE Stage 3b chronic kidney disease (H) EBV (Patrick-Cole virus) viremia Functional diarrhea Kidney transplant infection History of recurrent UTIs Cellulitis Bacterial infection Herpes simplex UTI due to Klebsiella species Blood infection Anemia Sepsis (H) E coli infection Parvovirus infection Allergies Allergies Allergen Reactions Blood Transfusion Related (Informational Only) Other (See Comments) 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 Finding compatible RBCs may take up to 24 hours or more. Consult with the Blood Bank MD for transfusion guidance. Hydromorphone Other (See Comments) Unresponsiveness, likely from too high of dose. Other reaction(s): Other (see comments) Unresponsiveness Lisinopril Anaphylaxis and Angioedema Red Blood Cells Other (See Comments) Informational: 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 Finding compatible RBCs may take up to 24 hours or more. Consult with the Blood Bank MD for transfusion guidance. Informational: 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 Finding compatible RBCs may take up to 24 hours or more. Consult with the Blood Bank MD for transfusion guidance. Medications Current Outpatient Medications Medication Sig Dispense Refill aspirin 81 MG EC tablet Take 81 mg by mouth daily. acetaminophen (TYLENOL) 500 MG tablet Take 1,000 mg by mouth every 6 hours as needed for mild pain apixaban ANTICOAGULANT (ELIQUIS) 5 MG tablet Take 5 mg by mouth 2 times daily colesevelam (WELCHOL) 625 MG tablet Take 1 tablet by mouth 2 times daily (with meals) diphenoxylate-atropine (LOMOTIL) 2.5-0.025 MG tablet Take 2 tablets by mouth 3 times daily as needed for diarrhea Ferrous Gluconate 324 (37.5 Fe) MG TABS Take 1 tablet by mouth daily with food gabapentin (NEURONTIN) 300 MG capsule Take 300 mg by mouth 2 times daily fmucih-fjswzvkh-nlbxfnt (CREON 12) 50910-20[address]-35043 units CPEP Take 1 capsule by mouth 2 times daily pantoprazole (PROTONIX) 40 MG EC tablet Take 40 mg by mouth 2 times daily rosuvastatin (CRESTOR) 40 MG tablet Take 40 mg by mouth every evening sirolimus (GENERIC EQUIVALENT) 1 MG tablet Take 2 tablets (2 mg) by mouth daily. 180 tablet 3 sodium bicarbonate 650 MG tablet Take 1 tablet (650 mg) by mouth 2 times daily. 60 tablet 11 tacrolimus (GENERIC EQUIVALENT) 0.5 MG capsule TAKE 1 CAPSULE (0.5 MG) BY MOUTH 2 TIMES DAILY. 60 capsule 3 tacrolimus (GENERIC EQUIVALENT) 1 MG capsule Take 4 capsules (4 mg) by mouth 2 times daily. 240 capsule 11 topiramate (TOPAMAX) 50 MG tablet Take 50 mg by mouth 2 times daily No current facility-administered medications for this visit. Medications Discontinued During This Encounter Medication Reason sirolimus (GENERIC EQUIVALENT) 0.5 MG tablet buPROPion (WELLBUTRIN XL) 150 MG 24 hr tablet citalopram (CELEXA) 20 MG tablet Physical Exam Vital Signs: LMP 06/30/2008 (LMP Unknown) GENERAL: alert and no distress EYES: Eyes grossly normal to inspection. No discharge or erythema, or obvious scleral/conjunctival abnormalities. RESP: No audible wheeze, cough, or visible cyanosis. SKIN: Visible skin clear. No significant rash, abnormal pigmentation or lesions. NEURO: Cranial nerves grossly intact. Mentation and speech appropriate for age. PSYCH: Appropriate affect, tone, and pace of words Data Latest Ref Rng & Units 10/04/2024 9:01 AM 09/19/2024 2:16 PM 09/07/2024 9:51 AM Renal Sodium 135 - 145 mmol/L 143 144 143 K 3.4 - 5.3 mmol/L 4.8 4.8 4.5 Cl 98 - 107 mmol/L 110 110 109 Cl (external) 98 - 107 mmol/L 110 110 109 CO2 22 - 29 mmol/L 24 23 19 Urea Nitrogen 6.0 - 20.0 mg/dL 45.7 50.4 42.2 Creatinine 0.51 - 0.95 mg/dL 1.70 1.79 1.92 Glucose 70 - 99 mg/dL 133 89 112 Calcium 8.8 - 10.4 mg/dL 9.2 9.3 9.6 Latest Ref Rng & Units 07/20/2023 6:37 AM 07/19/2023 5:43 AM 07/18/2023 6:33 AM Bone Health Phosphorus 2.5 - 4.5 mg/dL 3.0 3.1 3.8 Latest Ref Rng & Units 10/04/2024 9:01 AM 09/19/2024 2:16 PM 09/07/2024 9:51 AM Heme WBC 4.0 - 11.0 10e3/uL 5.6 5.8 4.3 Hgb 11.7 - 15.7 g/dL 7.2 9.2 10.9 Plt 150 - 450 10e3/uL 273 301 247 ABSOLUTE NEUTROPHIL 1.6 - 8.3 10e3/uL 2.7 ABSOLUTE LYMPHOCYTES 0.8 - 5.3 10e3/uL 1.7 ABSOLUTE MONOCYTES 0.0 - 1.3 10e3/uL 0.9 ABSOLUTE EOSINOPHILS 0.0 - 0.7 10e3/uL 0.1 ABSOLUTE BASOPHILS 0.0 - 0.2 10e3/uL 0.0 Latest Ref Rng & Units 09/07/2024 9:51 AM 11/04/2023 9:16 AM 09/09/2023 10:13 AM Liver AP 40 - 150 U/L 86 AP (external) 36 - 125 U/L 86 89 TBili <=1.2 mg/dL 0.2 TBili (external) 0.2 - 1.3 mg/dL 0.3 0.3 Bilirubin Direct 0.00 - 0.30 mg/dL 0.09 ALT 0 - 50 U/L 23 ALT (external) 0 - 34 U/L 23 43 AST 0 - 45 U/L 38 AST (external) 14 - 36 U/L 43 53 Tot Protein 6.4 - 8.3 g/dL 6.3 Tot Protein (external) 6.3 - 8.2 g/dL 7.0 6.4 Albumin 3.5 - 5.2 g/dL 3.4 Albumin (external) 3.5 - 5.0 g/dL 3.3 3.3 Latest Ref Rng & Units 09/19/2024 2:16 PM 09/07/2024 9:51 AM 04/27/2024 8:48 AM Pancreas A1C <5.7 % 5.3 Amylase 28 - 100 U/L 77 70 69 Lipase (Saritha) 13 - 60 U/L 35 33 33 Latest Ref Rng & Units 07/16/2023 5:57 AM 12/01/2022 3:03 PM 02/22/2020 9:32 AM Iron studies Iron 37 - 145 ug/dL 117 105 58 Iron Saturation Index 15 - 46 % 28 Iron Sat Index -- 49 Ferritin 11 - 328 ng/mL 5,838 1,774 12/01/2022 3:03 PM 07/25/2022 8:42 AM 03/24/2022 1:24 PM UMP Txp Virology EBV DNA LOG OF COPIES 4.6 4.7 4.2 Failed to redirect to the Timeline version of the REVFS SmartLink. Recent Labs Lab Test 11/18/23 1047 04/27/24 0848 09/07/24 0951 09/19/24 1416 DOSTAC 11/17/2023 04/26/2024 09/06/2024 -- TACROL 5.6 3.3* 6.8 6.4 documented in this encounter Nursing Notes * Geovanny Blair - 10/06/2024 4:00 PM CDT Current patient location: [address] [place] [phone] Is the patient currently in the state of [place]? YES Visit mode: VIDEO If the visit is dropped, the patient can be reconnected by:VIDEO VISIT: Text to cell phone: Telephone Information: Will anyone else be joining the visit? NO (If patient encounters technical issues they should call [phone]) Are changes needed to the allergy or medication list? No Are refills needed on medications prescribed by this physician? NO Rooming Documentation: Questionnaire(s) completed Reason for visit: RECHECK Geovanny Blair VVF documented in this encounter Plan of Treatment Upcoming Encounters Date Type Department Care Team (Late st Contact Info) Description 10/25/2024 10:00 AM CDT Virtual Visit [facility] Mental [facility] [address] [place] [phone] Edith Brito 10/26/2024 8:30 AM CDT Lab [facility] [address] [facility] [address] [place] [phone] Conrado Evans MD [address] [facility] [address] [facility] [address] [place] [address] Scheduled Orders Name Type Priority Associated Diagnoses Orde r Schedule CBC with Platelets & Differential Lab Panel Routine History of anemia due to CKD Expected: 10/07/2024 (Approximate), Expires: 10/07/2025 Vitamin B12 and Folate ([facility]) Lab Routine History of anemia due to CKD Ordered: 10/07/2024 Reticulocyte count Lab Routine History of anemia due to CKD Expected: 10/07/2024 (Approximate), Expires: 10/07/2025 Lab Blood Morphology Pathologist Review Lab Panel Routine History of anemia due to CKD Expected: 10/07/2024 (Approximate), Expires: 11/07/2024 Haptoglobin Lab Routine History of anemia due to CKD Expected: 10/07/2024 (Approximate), Expires: 10/07/2025 Scheduled Referrals Name Type Priority Associated Diagnoses Orde r Schedule Adult Mental Health Psychologist Engineering Referral Referral Routine: Next available opening Depression, unspecified depression type Expected: 10/06/2024 (Approximate), Expires: 10/06/2025 documented as of this encounter Results * (ABNORMAL) Iron & Iron Binding Capacity [...] 9:01 AM CDT 10/04/2024 9:12 AM CDT Delvin Ferrari MD LAB - BLOOD ORDERABLES Final R esult [facility] [address] [facility], [address] [place] [address], [facility] documented in this encounter Visit Diagnoses Diagnosis 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 EBV (Patrick-Cole virus) viremia Infectious mononucleosis Depression, unspecified depression type History of anemia due to CKD Persistent proteinuria Proteinuria Stage 3b chronic kidney disease (H) Aftercare following organ transplant Immunosuppression Unspecified disorder of immune mechanism Pancreas transplanted (H) Pancreas replaced by transplant Neurogenic orthostatic hypotension (H) documented in this encounter Additional Health Concerns 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, 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 Assessment Noted Time PHQ-9 Depression Total Score: 18 023 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 documented as of this encounter Care Teams Credit Verifier Relationship Specialty Start Date End Date Robert Marley MD [facility] [id number] [place] [address] PCP - General Family Practice 12/08/10 Tayo Lacey MD [facility] [address] [place] [address] Cardiology 08/30/14 Christopher Quiroga MD [facility] [address] [place] [address] Oncology 07/02/16 Lance Simpson PA-C [address] [place] [address] [phone] Physician Sales Department Supervisor Physician Sales Department Supervisor 01/07/18 Sherri Kingston PA [address] [place] [address] [place], [place] 0275[address] Physician Sales Department Supervisor Physician Sales Department Supervisor 12/21/18 Delvin Bob MD [address] [place] [address] [address] [place], [place] [phone] Internal Medicine 11/11/19 Love Hernandez PA-C [address] [place], [place] [address] Physician Sales Department Supervisor Urology 12/01/22 Love Hernandez PA-C [address] [place], [place] [address] Assigned Surgical Provider 01/17/23 [place] [address] [address], [place] [address] Assigned Gastroenterology Provider 07/23/23 Everardo Grant MD [address] [place] [address] Physician Infectious Diseases 09/23/23 Rey Billings MD [address] [place] [address] [id number] Assigned Infectious Disease Provider 10/23/23 Conrado Evans MD [address] [facility] [address] [facility] [address] [place], [place] [address] Nephrology 08/25/24 Delvin Lopez MD [address] [place] [address] [phone] Nephrology 08/25/24 documented as of this encounter
--- OUTSIDE RECORDS SUMMARY | 2024-10-10 15:00 | XMS_ITS | Encounter Summary ---
Author Organization [facility] Address [address] [place] [address] Care Team Providers Care Fountain Jerk Name Role Phone Robert Marley MD Primary Care Provider [phone] Tayo Lacey MD Unavailable [phone] Christopher Quiroga MD Unavailable Lance Simpson PA-C Unavailable [phone] Sherri Kingston Unavailable Delvin Bob MD Unavailable Love Hernandez-C Unavailable Love Hernandez-C Unavailable Gordy Nickerson MD Unavailable [phone] Everardo Grant MD Unavailable Rey Billings MD Unavailable [phone] Conrado Evans MD Unavailable Delvin Lopez MD Unavailable [phone] Carissa Putnam RN Unavailable [phone] Reason for Referral * Mental Health Outpatient (Routine: Next available opening) - Pending Review Specialty Diagnoses / Procedures Referred By Contchano t Referred To Contact Diagnoses Adjustment disorder with mixed anxiety and depressed mood [place] [id number] [facility] [place] [address] Phone: tel: fax: Referral ID Status Reason Start Date Expiration Date V isits Requested Visits Authorized [id number] Pending Review 10/10/2024 10/10/2025 1 1 Question Answer Services: Psychotherapy/Counseling (non-medication) Reason for Referral: Individual Psychotherapy/Counseling My clinical question is: [facility] to [facility] or critical access hospital (patient preference) for depression and anxiety symptoms. [facility] to [facility] for 2-3 months Patient Scheduling Instructions: [facility] will contact you via phone, text, email or Lessnot to coordinate your care as prescribed by your provider. If you don't hear from a leather goods sales representative within 2 business days, please call . Only select yes if the patient has already been scheduled and requires a referral for insurance. If yes is selected, the referral will NOT route to scheduling for outreach. No Comments Please be aware that coverage of these services is subject to the terms and limitations of your health insurance plan. Call member services at your health plan with any benefit or coverage questions. [facility] will contact you via phone, text, email or Lessnot to coordinate your care as prescribed by your provider. If you don't hear from a leather goods sales representative within 2 business days, please call . Reason for Visit * Mental Health Outpatient (Routine: Next available opening) - Pending Review Specialty Diagnoses / Procedures Referred By Contchano t Referred To Contact Behavioral Health Diagnoses Depression, unspecified depression type Delvin Lopez MD [address] [place] [address] Phone: tel: fax: Referral ID Status Reason Start Date Expiration Date V isits Requested Visits Authorized [id number] Pending Review 10/06/2024 10/06/2025 1 1 Encounter Details Date Type Department Care Team ([facility] Contact Info) Description 10/10/2024 3:00 PM CDT Virtual Visit [facility] [address] [place] [address] Delvin Lopez MD [address] [place] [id number] Edith Brito Adjustment disorder with mixed anxiety and depressed mood (Primary Dx); Depression, unspecified depression type Social History Tobacco Use Types Packs/Day Years Used Date Smoking Tobacco: Former Cigarettes Passive Smoke Exposure: Never Smokeless Tobacco: Never Alcohol Use Standard Drinks/Week Comments No 0 (1 standard drink = 0.6 oz pur e alcohol) PHQ-2 Answer Date Recorded PHQ-2 Score 6 10/10/2024 Adolescent Education Answer Date Record ed Getting [...] on file Legal Sex Female 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 Gender Identity Not on file Sexual Orientation Not on file Occupation Industry Job Start Date Job End Date Not on file Not on file Not on file Not on file documented as of this encounter Functional Status * Calculated C-SSRS Risk Score (Lifetime/Recent) Answer Date of Assessment Author No Risk Indicated 10/10/2024 3:12 PM CDT Edith Brito * Intensity of Ideation Question Answer Date of Assessment Author Description of Most Severe Ideation (Lifetime) N/A 10/10/2024 3:12 PM CDT Edith Brito Description of Most Severe Ideation (Past 1 Month) N/A 10/10/2024 3:12 PM CDT Kentrell Brito * Suicidal Behavior Question Answer Date of Assessment Author Actual Attempt (Lifetime) No 10/10/2024 3:12 PM CDT Edith Brito Has subject engaged in non-suicidal self-injurious behavior? (Lifetime) No 10/10/2024 3:12 PM CDT Breana Brito Interrupted Attempts (Lifetime) No 3:12 PM CDT Edith Brito Aborted or Self-Interrupted Attempt (Lifetime) No 10/10/2024 3:12 PM CDT Edith Brito Preparatory Acts or Behavior (Lifetime) No 10/10/2024 3:12 PM CDT Edith Brito * Question Answer Date of Assessment Author 1. Wish to be (Lifetime) No 10/10/2024 3:12 PM CDT Edith Brito 2. Non-Specific Active Suici sonny Thoughts (Lifetime) No 10/10/2024 3:12 PM CDT Edith Brito 1. Wish to be (Past 1 Month) No 10/10/2024 3:12 PM CDT Edith Brito documented as of this encounter Progress Notes * Edith Brito - 10/10/2024 3:00 PM CDT Images from the original note were not included. [facility] Primary Care: Integrated Behavioral Health Integrated Behavioral Health Mental Health & Addiction Services Progress Note - Initial [facility] Visit Patient Name: Roxanna Monzon Date: October 10, 2024 Service Type: Individual Visit Start Time: 3:06 PM Visit End Time: 3:33 PM Attendees: Patient Service Modality: Phone Visit: Provider verified identity through the following two step process. Patient provided: Patient and Patient address Telephone Visit: The patient's condition can be safely assessed and treated via synchronous audio telemedicine encounter. Reason for Audio Telemedicine Visit: Patient has requested telehealth visit Originating Site (Patient Location): Patient's home Distant Site (Provider Location): [facility] Telephone visit completed due to the patient did not have access to video, while the distant provider did. Consent: The patient/guardian has verbally consented to: 1. The potential risks and benefits of telemedicine (telephone visit) versus in person care; The patient has been notified of the following: We have found that certain health care needs can be provided without the need for a face to face visit. This service lets us provide the care you need with a phone conversation. I will have full access to your [facility] medical record during this entire phone call. I will be taking notes for your medical record. Since this is like an office visit, we will bill your insurance company for this service. There are potential benefits and risks of telephone visits (e.g. limits to patient confidentiality)that differ from in-person visits.?Confidentiality still applies for telephone services, and nobodywill record the visit. It is important to be in a quiet, private space that is free of distractions(including cell phone or other devices) during the visit.?? If during the course of the call I believe a telephone visit is not appropriate, you will not be charged for this service Consent has been obtained for this service by care steam shovel operating engineer: Yes [facility] Visit Activities (Refresh list every visit): NEW and [facility] Only DATA: Interactive Complexity: No Crisis: No Assessments completed: The following assessments were completed by patient for this visit: PHQ9: 06/05/2016 10:29 AM 07/30/2017 7:37 AM 04/05/2019 2:06 PM 03/12/2022 10:22 AM 10/10/2024 3:11 PM PHQ-9 SCORE PHQ-9 Total Score MyChart 4 (Minimal depression) PHQ-9 Total Score 15 4 11 18 14 Proxy-reported Data saved with a previous flowsheet row definition GAD7: 07/30/2017 7:36 AM CHANO-7 SCORE Total Score 0 (minimal anxiety) Total Score 0 Proxy-reported PROMIS 10-Global Health (all questions and answers displayed): 10/10/2024 3:11 PM PROMIS 10 In general, would you say your health is: Poor In general, would you say your quality of life is: Fair In general, how would you rate your physical health? Poor In general, how would you rate your mental health, including your mood and your ability to think? Fair In general, how would you rate your satisfaction with your social activities and relationships? Fair In general, please rate how well you carry out your usual social activities and roles Fair To what extent are you able to carry out your everyday physical activities such as walking, climbing stairs, carrying groceries, or moving a chair? A little In the past 7 days, how often have you been bothered by emotional problems such as feeling anxious,depressed, or irritable? Always In the past 7 days, how would you rate your fatigue on average? Severe In the past 7 days, how would you rate your pain on average, where 0 means no pain, and 10 means worst imaginable pain? 6 In general, would you say your health is: 1 In general, would you say your quality of life is: 2 In general, how would you rate your physical health? 1 In general, how would you rate your mental health, including your mood and your ability to think? 2 In general, how would you rate your satisfaction with your social activities and relationships? 2 In general, please rate how well you carry out your usual social activities and roles. (This includes activities at home, at work and in your community, and responsibilities as a parent, child, spouse, employee, friend, etc.) 2 To what extent are you able to carry out your everyday physical activities such as walking, climbing stairs, carrying groceries, or moving a chair? 2 In the past 7 days, how often have you been bothered by emotional problems such as feeling anxious,depressed, or irritable? 5 In the past 7 days, how would you rate your fatigue on average? 4 In the past 7 days, how would you rate your pain on average, where 0 means no pain, and 10 means worst imaginable pain? 6 Global Mental Health Score 7 Global Physical Health Score 8 PROMIS TOTAL - SUBSCORES 15 Proxy-reported [place] Suicide Severity Rating Scale (Lifetime/Recent) 02/25/2018 9:21 AM 02/25/2018 3:00 PM 07/16/2023 11:00 AM 10/10/2024 3:12 PM [place] Suicide Severity Rating (Lifetime/Recent) Q1 Wished to be (Past Month) no no 0-->no Q2 Suicidal Thoughts (Past Month) no no 0-->no Q6 Suicide Behavior (Lifetime) no no 0-->no Level of Risk per Screen no risks indicated 1. Wish to be (Lifetime) N Wish to be Description (Lifetime) N/A 1. Wish to be (Past 1 Month) N 2. Non-Specific Active Suicidal Thoughts (Lifetime) N Most Severe Ideation Rating (Lifetime) -- Description of Most Severe Ideation (Lifetime) N/A Most Severe Ideation Rating (Past 1 Month) -- Description of Most Severe Ideation (Past 1 Month) N/A Frequency (Lifetime) -- Frequency (Past 1 Month) -- Duration (Lifetime) -- Duration (Past 1 Month) -- Controllability (Lifetime) -- Controllability (Past 1 Month) -- Deterrents (Lifetime) -- Deterrents (Past 1 Month) -- Reasons for Ideation (Lifetime) -- Reasons for Ideation (Past 1 Month) -- Actual Attempt (Lifetime) N Has subject engaged in non-suicidal self-injurious behavior? (Lifetime) N Interrupted Attempts (Lifetime) N Aborted or Self-Interrupted Attempt (Lifetime) N Preparatory Acts or Behavior (Lifetime) N Calculated C-SSRS Risk Score (Lifetime/Recent) No Risk Indicated Data saved with a previous flowsheet row definition Referral: Patient was referred to [facility] by primary care provider. Reason for referral: clarify behavioral health diagnosis and determine behavioral health treatment options. [facility] introduced self and role. Discussed informed consent and limits to confidentiality. Presenting Concerns/ Current Stressors: Patient endorsed experiencing sadness, little interest in doing things, changes in appetite, isolation, low motivation, feeling bad about herself, anxiety and worry, difficulty controlling worry, difficulty relaxing, increased irritability, and restlessness. She indicated these symptoms have been co nsistent for years. She reported her mobility has been limited to a wheelchair for the past 4 years and became tearful when discussing the impact this change had on her daily functioning. She described herself as being an active person prior to needing to utilize a wheelchair. 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 She reported she has never worked with a therapist and has never been diagnosed with a mental health disorder. She reported no psychiatric medications. She indicated she is open to working with a therapist and open to psychiatric medications if they will be helpful as she endorsed a desire to improve her mood and daily functioning. She reported she currently lives with her who she feels somewhat supported by. She reported she also feel supported by her adult daughter. Therapeutic Interventions: Motivational Interviewing (MO): Validated patient's thoughts, feelings and experience. Expressed respect for patient's autonomy in decision making. Asked open-ended questions to invite patient's self-reflection and self-direction around change and what is important for them in working towards theirgoals. Expressed and demonstrated empathy through reflective listening. Psycho-education: Provided psycho-education about patient's behavioral health condition and symptoms. Explained and reviewed treatment options. Response to treatment interventions: Patient was receptive to interventions utilized. Patient was engaged in the therapy process. Safety Issues and Plan for Safety and Risk Management: Patient denies a history of suicidal ideation, suicide attempts, self-injurious behavior, homicidalideation, homicidal behavior, and and other safety concerns Patient denies current fears or concerns for personal safety. Patient denies current or recent suicidal ideation or behaviors. Patient denies current or recent homicidal ideation or behaviors. Patient denies current or recent self injurious behavior or ideation. Patient denies other safety concerns. Recommended that patient call 911 or go to the local ED should there be a change in any of these risk factors Patient reports there are no firearms in the house. ASSESSMENT: Mental Status: Appearance: Unable to assess due to phone appointment Eye Contact: Unable to assess due to phone appointment Psychomotor Behavior: Unable to assess due to phone appointment Attitude: Cooperative Interested Orientation: Person Place Time Situation Speech Rate / Production: Normal/ Responsive Volume: Normal Mood: Sad Affect: Unable to assess due to phone appointment Thought Content: Clear Thought Form: Coherent Insight: Fair Diagnostic Criteria: Adjustment Disorder A. The development of emotional or behavioral symptoms in response to an identifiable stressor(s) occurring within 3 months of the onset of the stressor(s) B. These symptoms or behaviors are clinically significant, as evidenced by one or both of the following: - Significant impairment in social, occupational, or other important areas of functioning C. The stress-related disturbance does not meet criteria for another disorder & is not not an exacerbation of another mental disorder D. The symptoms do not represent normal bereavement E. Once the stressor or its consequences have terminated, the symptoms do not persist for more thanan additional 6 months * Adjustment Disorder with Mixed Anxiety and Depressed Mood: The predominant manifestation is a combination of depression and anxiety DSM5 Diagnoses: (Sustained by DSM5 Criteria Listed Above) Diagnoses: Adjustment Disorders 309.28 (F43.23) With mixed anxiety and depressed mood Psychosocial / Contextual Factors: Medical Complexities Collateral Reports Completed: Not Applicable PLAN: (Homework, other): 1. Patient was provided: recommendation to schedule follow-up with [facility] recommendation to follow through on referrals 2. Provider recommended the following referrals: establish care with a long-term therapist; continue to meet with [facility] until able to establish care; practice utilizing the Opposite Action skill discussed in session; send message via Ganjiwang to PCP if you decide you want to explore the route of psychiatric medication. 3. Suicide Risk and Safety Concerns were assessed for Roxanna Monzon Safety Plan: Patient denied any current/recent/lifetime history of suicidal ideation and/or behaviors. Recommended that patient call 911 or go to the local ED should there be a change in any of these risk factors Edith Brito [facility] October 10, 2024 documented in this encounter Plan of Treatment Upcoming Encounters Date Type Department Care Team (Late st Contact Info) Description 10/25/2024 10:00 AM CDT Virtual Visit [facility] Mental Health & Addiction [facility] [address] [place] [address] Edith Brito 10/26/2024 8:30 AM CDT Lab [facility] [address] [facility] [address] [place] [id number] Conrado Evans MD [address] [facility] [address] [facility] [address] [place], [place] [address] Scheduled Referrals Name Type Priority Associated Diagnoses Orde r Schedule Adult Mental Health [facility] Referral Referral Routine: Next available opening Adjustment disorder with mixed anxiety and depressed mood Expected: 10/10/2024 (Approximate), Expires: 10/10/2025 documented as of this encounter Visit Diagnoses Diagnosis Adjustment disorder with mixed anxiety and depressed mood- Primary Depression, unspecified depression type documented in this encounter Additional Health Concerns 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, 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 Assessment Noted Time PHQ-9 Depression Total Score: 14 025 3:12 PM CDT documented as of this encounter Care Teams Fountain Jerk Relationship Specialty Start Date End Date Robert Marley MD [facility] [address] [place] [address] PCP - General Family Practice 12/08/10 Tayo Lacey MD [facility] [address] [place] [address] Cardiology 08/30/14 Christopher Quiroga MD [facility] [address] [place] [address] Oncology 07/02/16 Lance Simpson PA-C [address] [place] [address] Physician Occupational Physician Physician Occupational Physician 01/07/18 Sherri Kingston PA [address] [place] [address] [place] [address] Physician Occupational Physician Physician Occupational Physician 12/21/18 Delvin Bob MD [address] [place] [address] [address] [place] [address] Internal Medicine 11/11/19 Love Hernandez PA-C [address] [facility] [address] [place], [place] [address] Physician Occupational Physician Urology 12/01/22 Love Hernandez PA-C [address] [facility] [address] [place], [place] [id number] Assigned Surgical Provider 01/17/23 [place] [address] [place] [address] Assigned Gastroenterology Provider 07/23/23 Everardo Grant MD [address] [place] [address] Physician Infectious Diseases 09/23/23 Rey Billings MD [address] [place] [address] Assigned Infectious Disease Provider 10/23/23 Conrado Evans MD [address] [facility] [address] [facility] [address] [place] [address] Nephrology 08/25/24 Delvin Lopez MD [address] [place] [address] Nephrology 08/25/24 Carissa Putnam RN [facility] [address] [place] [address] Specialty Bleaching Machine Operator Pharmacy 10/10/24 documented as of this encounter
[2024-10-13] VITALS (7 sets, daily range): BP systolic 93–131; BP diastolic 50–59; PULSE 76–95; RESP 15–20; TEMP 36.6; O2SAT 90–100; BMI 19.0
--- OUTSIDE RECORDS SUMMARY | 2024-10-13 08:53 | XMS_ITS | Encounter Summary ---
Author Organization [place] Address [address] [place] [address] Care Team Providers Care Outsole Splicer Name Role Phone Robert Marley MD Primary Care Provider Tayo Lacey MD Unavailable [phone] Christopher Quiroga MD Unavailable Claudia Yousif RN Unavailable Lance Simpson PA-C Unavailable Sherri Kingston Unavailable [phone] Delvin Bob MD Unavailable Jovanni Dempsey MD Unavailable Len Hooks MD Unavailable Delvin Bob MD Unavailable [phone] Love Hernandez-C Unavailable Conrado Evans MD Unavailable Love Hernandez-C Unavailable Gordy Nickerson MD Unavailable [phone] Everardo Grant MD Unavailable Rey Billings MD Unavailable [phone] Conrado Evans MD Unavailable Delvin Lopez MD Unavailable [phone] Carissa Putnam RN Unavailable [phone] Encounter Details Date Type Department Care Team (Late Contact Info) Description 03/19/2022 External Order Results [facility] [address] [place] [address] Outside, Provider Social History Tobacco Use Types Packs/Day Years Used Date Smoking Tobacco: Former Smokeless Tobacco: Never Alcohol Use Standard Drinks/Week Comments No 0 (1 standard drink = 0.6 oz pur e alcohol) PHQ-2 Answer Date Recorded PHQ-2 Score 5 03/12/2022 Comments No Sex and Gender Information Value Date Recorded Sex Assigned at Not on file Legal Sex Female 3:26 AM LINE CONSTRUCTION ENGINEER Gender Identity Not on file Sexual Orientation Not on file Occupation Industry Job Start Date Job End Date Not on file Not on file Not on file Not on file documented as of this encounter Plan of Treatment Upcoming Encounters Date Type Department Care Team (Late Contact Info) Description 10/25/2024 10:00 AM CDT Virtual Visit [facility] [address] [place] [address] Edith Brito 10/26/2024 8:30 AM CDT Lab [facility] [address] [facility] [address] [place] [phone] Conrado Evans MD 717 [facility] 353 [facility] 1932 [place], [place] [address] documented as of this encounter Procedures Procedure Name Priority Date/Time Associated Diagnosis Comments EXTERNAL LAB RESULTS Routine 03/19/2022 10:00 AM LINE CONSTRUCTION ENGINEER documented in this encounter Results * (ABNORMAL) External Lab Results (03/19/2022 10:00 AM LINE CONSTRUCTION ENGINEER) Scan Lab Results (External) <50(L) >200 ug/g NON-INTERFACED (ONBASE SCANS) Comment:PANCREATIC ELASTASE, FECAL 03/19/2022 10:0 0 AM LINE CONSTRUCTION ENGINEER Narrative BOBBY PFT - 03/31/2022 2:13 PM LINE CONSTRUCTION ENGINEER Verified by Champ Tobar on 03/31/2022. 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 The [place] Department of Health ([facility]) and CDC recommend that we screen this patient to prevent the spread of these organisms within our healthcare facility. Infection Prevention has placed orders for collecting a rectal swab for CP-DENTURE WAXER to evaluate if this patient is now a carrier. This patient was identified to have a low risk exposure in which case Contact Precautions are not necessary unless the patient tests positive. Screening is voluntary. Please notify Infection Prevention if the patient declines testing. Additional information and resources can be found on the Infection Prevention MDRO Sharepoint page. 08/04/2023 08/04/2023 02/02/2024 11:39 PM LINE CONSTRUCTION ENGINEER Rule Out Parvovirus 09/28/2023 09/28/2023 10/05/19 24 11:41 PM CDT Assessment Noted Time PHQ-9 Depression Total Score: 18 023 10:27 AM LINE CONSTRUCTION ENGINEER documented as of this encounter Care Teams Outsole Splicer Relationship Specialty Start Date End Date Robert Marley MD [facility] [id number] [place] [address] PCP - General Family Practice 12/08/10 Tayo Lacey MD [facility] [id number] [place] [address] [id number] Cardiology 08/30/14 Christopher Quiroga MD [facility] [address] [place], [place] [address] Oncology 07/02/16 Claudia Yousif, RN Nurse Coordinator Gastroenterology 02/09/17 09/16/22 Lance Simpson PA-C [address] [place] [address] Physician Post Acute Care Registered Nurse Physician Post Acute Care Registered Nurse 01/07/18 Sherri Kingston PA [address] [place] [address] Urology [place], [place] 52[address] Physician Post Acute Care Registered Nurse Physician Post Acute Care Registered Nurse 12/21/18 Delvin Bob MD [address] [place] [address] Internal Medicine 11/11/19 Jovanni Dempsey MD [address] [place] [address] Assigned Nephrology Provider 03/15/22 03/21/22 Len Hooks MD [address] [place] [address] Assigned Nephrology Provider 03/22/22 12/26/22 Delvin Bob MD [address] [place] [address] 250 [place] [address] Assigned PCP 04/26/22 12/12/22 Love Hernandez PA-C 6363 [facility] 500 [place] [address] Physician Post Acute Care Registered Nurse Urology 12/01/22 Conrado Evans MD [address] [place] [address] Assigned Nephrology Provider 12/27/22 06/21/24 Love Hernandez PA-C 6363 [facility] 500 [place], [place] [address] Assigned Surgical Provider 01/17/23 [place] [address] [place], [place] [address] Assigned Gastroenterology Provider 07/23/23 Everardo Grant MD [address] [place] [address] Physician Infectious Diseases 09/23/23 Rey Billings MD [address] [place] [address] Assigned Infectious Disease Provider 10/23/23 Conrado Evans MD [address] [place] [address] Nephrology 08/25/24 Delvin Lopez MD [address] [place] [address] Nephrology 08/25/24 Carissa Putnam RN [facility] [address] [place] [address] Specialty Speech Lang Path Therapist Pharmacy 10/10/24 documented as of this encounter
--- OUTSIDE RECORDS SUMMARY | 2024-10-13 08:53 | XMS_ITS | Encounter Summary ---
Author Organization [place] Address [address] [place] [address] Care Team Providers Care Crew Scheduler Name Role Phone Robert Marley MD Primary Care Provider [phone] Tayo Lacey MD Unavailable [phone] Christopher Quiroga MD Unavailable Claudia Yousif RN Unavailable Lance Simpson PA-C Unavailable Sherri Kingston Unavailable [phone] Delvin Bob MD Unavailable Len Hooks MD Unavailable Delvin Bob MD Unavailable Love Hernandez PA-C Unavailable Conrado Evans MD Unavailable Love Hernandez PA-C Unavailable Gordy Nickerson MD Unavailable Everardo Grant MD Unavailable Rey Billings MD Unavailable [phone] Conrado Evans MD Unavailable Delvin Lopez MD Unavailable [phone] Carissa Putnam RN Unavailable [phone] Encounter Details Date Type Department Care Team (Late Contact Info) Description 07/11/2022 MyC Medical Advice [facility] [address] [place] [address] Brit Sherman RN [facility] [place] [address] Social History Tobacco Use Types Packs/Day Years Used Date Smoking Tobacco: Former Smokeless Tobacco: Never Alcohol Use Standard Drinks/Week Comments No 0 (1 standard drink = 0.6 oz pur e alcohol) PHQ-2 Answer Date Recorded PHQ-2 Score 5 03/12/2022 Comments No Sex and Gender Information Value Date Recorded Sex Assigned at Not on file Legal Sex Female 3:26 AM MOUNT LOADER Gender Identity Not on file Sexual Orientation Not on file Occupation Industry Job Start Date Job End Date Not on file Not on file Not on file Not on file COVID-19 Exposure Response Date Recorded In the last 10 days, have yo u been in contact with someone who was confirmed or suspected to have Coronavirus/COVID-19? Unable to assess 06/27/2022 9:30 AM CDT documented as of this encounter Plan of Treatment Upcoming Encounters Date Type Department Care Team (Late Contact Info) Description 10/25/2024 10:00 AM CDT Virtual Visit [facility] [address] [place] [address] Edith Brito 10/26/2024 8:30 AM CDT Lab [facility] [address] [place] [address] [place] [address] [place] [phone] Conrado Evans MD [address] [place] [address] 353 [facility] 1932 [place], [place] [address] documented as of this encounter Visit Diagnoses Not on filedocumented in this encounter Additional Health Concerns 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 The [place] Department of Health ([facility]) and CDC recommend that we screen this patient to prevent the spread of these organisms within our healthcare facility. Infection Prevention has placed orders for collecting a rectal swab for CP-GAS BRAZER to evaluate if this patient is now a carrier. This patient was identified to have a low risk exposure in which case Contact Precautions are not necessary unless the patient tests positive. Screening is voluntary. Please notify Infection Prevention if the patient declines testing. Additional information and resources can be found on the Infection Prevention MDRO Sharepoint page. 08/04/2023 08/04/2023 02/02/2024 11:39 PM MOUNT LOADER Rule Out Parvovirus 09/28/2023 09/28/2023 10/05/19 24 11:41 PM CDT Assessment Noted Time PHQ-9 Depression Total Score: 18 023 10:27 AM MOUNT LOADER documented as of this encounter Care Teams Crew Scheduler Relationship Specialty Start Date End Date Robert Marley MD [facility] [address] [place] [address] PCP - General Family Practice 12/08/10 Tayo Lacey MD [facility] [id number] [place] [address] Cardiology 08/30/14 Christopher Quiroga MD [facility] [address] [place] [address] Oncology 07/02/16 Claudia Yousif RN Nurse Coordinator Gastroenterology 02/09/17 09/16/22 Lance Simpson PA-C 909 [place] [address] Physician Dosimetrist Physician Dosimetrist 01/07/18 Sherri Kingston PA [address] [place] [address] [place] [address] Physician Dosimetrist Physician Dosimetrist 12/21/18 Devlin Bob MD 420 [facility] 250 [place] [address] Internal Medicine 11/11/19 Len Hooks MD 717 [facility] 353 [place] [address] Assigned Nephrology Provider 03/22/22 12/26/22 Delvin Bob MD 420 [facility] 250 [place] [address] Assigned PCP 04/26/22 12/12/22 Love Hernandez PA-C [address] [place] [place], [place] [address] Physician Dosimetrist Urology 12/01/22 Conrado Evans MD 717 [facility] 353 [facility] 1932 [place] [address] Assigned Nephrology Provider 12/27/22 06/21/24 Love Hernandez PA-C [address] [place] [place] [address] Assigned Surgical Provider 01/17/23 [place] [address] [address] [address] Assigned Gastroenterology Provider 07/23/23 Everardo Grant MD 9 [place] [address] Physician Infectious Diseases 09/23/23 Rey Billings MD [address] [place] [address] Assigned Infectious Disease Provider 10/23/23 Conrado Evans MD [address] [place] [address] 353 [facility] [address] [place] [address] Nephrology 08/25/24 Delvin Lopez MD [address] [place] [address] 610665 Nephrology 08/25/24 Carissa Putnam RN [facility] 7[address] [place], [place] [address] Specialty [facility] 10/10/24 documented as of this encounter
--- OUTSIDE RECORDS SUMMARY | 2024-10-13 08:53 | XMS_ITS ---
Author Organization [place] Address [address] [place] [address] Care Team Providers Care Clinical Resource Manager Name Role Phone Robert Marley MD Primary Care Provider [phone] Tayo Lacey MD Unavailable [phone] Christopher Quiroga MD Unavailable Lance SimpsonC Unavailable Sherri Kingston Unavailable Delvin Bob MD Unavailable Love Hernandez-C Unavailable Love Hernandez-C Unavailable [phone] Gordy Nickerson MD Unavailable Everardo Grant MD Unavailable Rey Billings MD Unavailable Conrado Evans MD Unavailable [phone] Delvin Lopez MD Unavailable [phone] Transplant Episode Kidney, Pancreas Recipient [facility] ([place], [place]) - MNUM Organs Received: Right Kidney, Pancreas Transplanted on 01/21/2014 Marked as Active Follow-up on 01/21/2014 Kidney, Pancreas CoordinatorSusan Pelletier RN Phone: N/A Fax: N/A Email: [place] Organ Diagnosis Organ Primary Contributory Kidney Diabetes Mellitus - Type I Pancreas Diabetes Mellitus - Type I (Panc reas) Infection History Noted Survival Infection Treatment Organism Resolved 10/13/2023 9 years 8 months E coli infection Medical managem ent 09/09/2023 9 years 7 months Parvovirus infection IVIG 02/07/2023 9 years Blood infection Antibiotics STRSPS 11/13/2022 8 years 9 months UTI due to Klebsiella species Antibiotics KLESPE 11/11/2022 8 years 9 months Herpes simplex Medical managemen t 08/09/2022 8 years 6 months Bacterial infection Surgery 03/12/2022 8 years 1 month EBV (Patrick-Bar r virus) viremia 02/05/2022 8 years Kidney transplan t infection Antibiotics KLESPE 01/06/2021 6 years 11 months Pneumonia of right upper lobe due to infectious organism 03/12/2022 11/18/2019 5 years 9 months Osteomyelitis o f second toe of left foot (H) 03/02/2020 11/05/2019 5 years 9 months Osteomyelitis (H) 03/12/2022 07/25/2019 5 years 6 months UTI (urinary tr act infection) 03/12/2022 09/25/2016 2 years 8 months C. difficile diarrhea 03/12/2022 01/02/2016 1 year 11 months Rhinovirus infection 03/02/2020 11/06/2015 1 year 9 months Hemolytic anemia associated with infection (H) 03/02/2020 09/04/2015 1 year 7 months Tooth decayed 03/02/2020 08/19/2015 1 year 6 months HCAP (healthcare-associat ed pneumonia) 03/12/2022 07/03/2015 1 year 5 months Urinary tract infection, site not specified 03/02/2020 Donor Information Organ ABO Source Meets Risk Criteria HLA Match Mismatches Cross Match Right Kidney Transplanted A1 DBD No A: B: DR: T cell (Negative) B cell (Negative) Pancreas Transplanted A1 DBD No A: B: DR: Right Kidney Donor Serology Results Anti-HBcAb HBC Total: Negative HBsAg HBsAg: Negative HBsAb No results on file HBV DNA No results on file Anti-HCV HCV: Negative Anti-HIV I/II HIV-1: Negative Anti-CMV CMV IgG: Negative CMV Nucleic Acid: Negative Anti-HTLV I/II HTLV: Not Done RPR/VDRL RPR: Negative EBV IgG EBV VCA IgG: Positive EBV IgM EBV VCA IgM: Negative EBNA No results on file Toxoplasma No results on file MITRA No results on file Pancreas Donor Serology Results Anti-HBcAb HBC Total: Negative HBsAg HBsAg: Negative HBsAb No results on file HBV DNA No results on file Anti-HCV HCV: Negative Anti-HIV I/II HIV-1: Negative Anti-CMV CMV IgG: Negative CMV Nucleic Acid: Negative Anti-HTLV I/II HTLV: Not Done RPR/VDRL RPR: Negative EBV IgG EBV VCA IgG: Positive EBV IgM EBV VCA IgM: Negative EBNA No results on file Toxoplasma No results on file MITRA No results on file Care Team Name Role Phone Fax Email Susan Pelletier RN Kidney, Pancreas Coordinator N/A N/A Teodoro @[email or web address] Alen Escobedo MD Referring Physician [phone] [email or web address] Post-Transplant Pre-Transplant Admitted: 01/21/2014 Referred: 05/24/2012 Transplanted: 01/21/2014 Evaluation began: 3 Discharged: 01/30/2014 Committee: 06/30/2012 Center waitlisted: 3 Appointments (09/12/2024 - 11/13/2024) When With Visit Type Description 10/06/2024 SOT - He Ferrari, R Return Kidney Transplan t 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); EBV (Patrick-Cole virus) viremia; Depression, unspecified depression type; History of anemia due to CKD; Persistent proteinuria; Stage 3b chronic kidney disease (H); Aftercare following organ transplant; Immunosuppression; Pancreas transplanted (H); Neurogenic orthostatic hypotension (H) Dialysis History Dialysis History Start End Type Comments Center 05/08/2012 01/21/2014 Hemo-In Center [facility] Dialysis Center Information Center Phone Fax Address OTHER CENTER Center Not Listed
--- OUTSIDE RECORDS SUMMARY | 2024-10-13 08:53 | XMS_ITS | Encounter Summary ---
Author Organization [place] Address [address] [place] [address] Care Team Providers Care Ham Facer Name Role Phone Robert Marley MD Primary Care Provider [phone] Tayo Lacey MD Unavailable [phone] Christopher Quiroga MD Unavailable Claudia Yousif RN Unavailable Lance Simpson PA-C Unavailable Sherri Kingston Unavailable [phone] Delvin Bob MD Unavailable Len Hooks MD Unavailable Delvin Bob MD Unavailable [phone] Love Hernandez PA-C Unavailable Conrado Evans MD Unavailable Love Hernandez PA-C Unavailable Gordy Nickerson MD Unavailable [phone] Everardo Grant MD Unavailable Rey Billings MD Unavailable [phone] Conrado Evans MD Unavailable Delvin Lopez MD Unavailable [phone] Carissa Putnam RN Unavailable [phone] Encounter Details Date Type Department Care Team (Late Contact Info) Description 05/12/2022 MyC Medical Advice [facility] [address] [address] [facility] Social History Tobacco Use Types Packs/Day Years Used Date Smoking Tobacco: Former Smokeless Tobacco: Never Alcohol Use Standard Drinks/Week Comments No 0 (1 standard drink = 0.6 oz pur e alcohol) PHQ-2 Answer Date Recorded PHQ-2 Score 5 03/12/2022 Comments No Sex and Gender Information Value Date Recorded Sex Assigned at Not on file Legal Sex Female 3:26 AM AVIONICS SYSTEMS ENGINEER Gender Identity Not on file Sexual Orientation Not on file Occupation Industry Job Start Date Job End Date Not on file Not on file Not on file Not on file documented as of this encounter Plan of Treatment Upcoming Encounters Date Type Department Care Team (Late Contact Info) Description 10/25/2024 10:00 AM CDT Virtual Visit [facility] [address] [place] [address] Edith Brito 10/26/2024 8:30 AM CDT Lab [facility] [address] [facility] 200 [place] [address] Conrado Evans MD [address] [place] [address] 353 [facility] 1932 [place] [address] documented as of this encounter Visit Diagnoses Not on filedocumented in this encounter Additional Health Concerns 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 The [place] Department of Health ([facility]) and CDC recommend that we screen this patient to prevent the spread of these organisms within our healthcare facility. Infection Prevention has placed orders for collecting a rectal swab for CP-CONTENT STRATEGY LEAD to evaluate if this patient is now a carrier. This patient was identified to have a low risk exposure in which case Contact Precautions are not necessary unless the patient tests positive. Screening is voluntary. Please notify Infection Prevention if the patient declines testing. Additional information and resources can be found on the Infection Prevention MDRO Sharepoint page. 08/04/2023 08/04/2023 02/02/2024 11:39 PM AVIONICS SYSTEMS ENGINEER Rule Out Parvovirus 09/28/2023 09/28/2023 10/05/19 11:41 PM CDT Assessment Noted Time PHQ-9 Depression Total Score: 18 023 10:27 AM AVIONICS SYSTEMS ENGINEER documented as of this encounter Care Teams Ham Facer Relationship Specialty Start Date End Date Robert Marley MD [facility] [id number] [place] [place] [address] PCP - General Family Practice 12/08/10 Tayo Lacey MD [facility] [id number] [place] [place] [address] Cardiology 08/30/14 Christopher Quiroga MD [place] [facility] [address] [facility] 200 [place] [address] Oncology 07/02/16 Claudia Yousif, RN Nurse Coordinator Gastroenterology 02/09/17 09/16/22 Lance Simpson PA-C [address] [place] [address] Physician Roll Up Guider Operator Physician Roll Up Guider Operator 01/07/18 Sherri Kingston PA 909 [facility] [place] [address] Physician Roll Up Guider Operator Physician Roll Up Guider Operator 12/21/18 Delvin Bob MD 420 [facility] 250 [place] [address] Internal Medicine 11/11/19 Len Hooks MD 717 [facility] 353 [place] [address] Assigned Nephrology Provider 03/22/22 12/26/22 Delvin Bob MD 420 [facility] 250 [place] [address] Assigned PCP 04/26/22 12/12/22 Love Hernandez PA-C [address] [place] [address] [place], [place] [address] Physician Roll Up Guider Operator Urology 12/01/22 Conrado Evans MD 717 [facility] 353 [facility] 1932 [place] [address] Assigned Nephrology Provider 12/27/22 06/21/24 Love Hernandez PA-C [address] [place] [place], [place] [address] Assigned Surgical Provider 01/17/23 [place] [address] [place] [address] Assigned Gastroenterology Provider 07/23/23 Everardo Grant MD 9 [place], [place] [address] Physician Infectious Diseases 09/23/23 Rey Billings MD [address] [place] [address] 593825 Assigned Infectious Disease Provider 10/23/23 Conrado Evans MD [address] [place] [address] [address] [facility] [address] [place], [place] [address] Nephrology 08/25/24 Delvin Lopez MD [address] [place] [address] 733265 Nephrology 08/25/24 Carissa Putnam, RN [facility] 711 [place], [place] [id number] Specialty Auto Brake Mechanic Pharmacy 10/10/24 documented as of this encounter
--- OUTSIDE RECORDS SUMMARY | 2024-10-13 08:53 | XMS_ITS | Clinical Summary ---
Author Organization [facility] Address [address] [place] [address] Care Team Providers Care Class A Lineman Name Role Phone Elsewhere, Pcp Primary Care Provider Unavailabl e Source Comments Patient records contain information from all sites at [facility]. For routine questions regarding patient records, call [phone] during business hours, M-F 8:00 AM - 5:00 PM Central Time. 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 Finding compatible RBCs may take up to 24 hours or more. Consult with the Blood Bank MD for transfusion guidance. Medications citalopram (CeleXA) 20 mg tablet Take 20 mg by mouth daily. 0 Active gabapentin (NEURONTIN) 300 mg capsule Take 300 mg by mouth 2 (two) times a day. 0 Active ondansetron ODT (ZOFRAN-ODT) 4 mg disintegrating tablet Take 1 tablet by mouth as needed. 3 Active pantoprazole (PROTONIX) 40 mg EC tablet Take 1 tablet by mouth daily. 1 Active rosuvastatin (CRESTOR) 40 mg tablet Take 1 tablet by mouth at bedtime. 1 Active sirolimus (RAPAMUNE) 1 mg tablet Take 2 mg by mouth daily. 0 Active tacrolimus (PROGRAF) 1 mg capsule Take 2.5 mg by mouth 2 (two) times a day. 1 Active lactobacillus-bifid obacterium-streptoc occus (THER-BIOTIC COMPLETE) 25 billion CFU Take by mouth. Active cholecalciferol (VITAMIN D3) 50 mcg (2,000 Unit) tablet 125mcg daily 03/12/19 2 3 Active colesevelam (WELCHOL) 625 mg tablet 3 Active dilTIAZem (TIAZAC/TAZTIA XT) 180 mg ER capsule Take 180 mg by mouth. 3 Active qyfphv-daekvqwe-wbr lase (Creon) 12,000-38,000-60,[address] capsule Take 2 capsules by mouth every 8 (eight) hours. 3 Active Zenpep 25,000-79,000- 105,[address] capsule 3 Active topiramate (TOPAMAX) 50 mg tablet Take 50 mg by mouth. 2 Active sodium chloride 1 gram tablet Take 1 g by mouth. 5 Active ferrous gluconate (Fergon) 324 mg (38 mg iron) tablet Take 1 tablet by mouth daily. 4 Active buPROPion XL (Wellbutrin XL) 150 mg 24 hr tablet Take 1 tablet by mouth daily. 3 Active Eliquis 5 mg tablet Take 1 tablet by mouth 2 (two) times a day. 4 Active acetaminophen (TylenoL) 500 mg tablet Take 1,000 mg by mouth. Active MAGNESIUM CHLORIDE ORAL Take 2 tablets by mouth daily. 5 Active Active Problems Problem Noted Date Diagnosed Date Cardiovascular Disease 06/05/2020 Immunizations Immunization Administration Dates Next Due PPSV23 10/02/2011 Social History Tobacco Use Types Packs/Day Years Used Date Smoking Tobacco: Former Cigarettes Passive Smoke Exposure: Current Smokeless Tobacco: Never Tobacco Cessation:Counseling Given: Not Answered Alcohol Use Standard Drinks/Week Comments Not Currently 0 (1 standard drink = 0.6 oz pur e alcohol) Hunger Vital Sign Answer Date Recorded Within the past 12 months, y ou worried that your food would run out before you got the money to buy more. Never true 07/10/19 21 Within the past 12 months, t he food you bought just didn't last and you didn't have money to get more. Never true 07/09/2020 PRAPARE - Transportation Answer Date Re corded In the past 12 months, has l ack of transportation kept you from medical appointments or from getting medications? No 06/30 In the past 12 months, has l ack of transportation kept you from meetings, work, or from getting things needed for daily living? No 07/09/2020 Housing Stability Vital Sign Answer Wm e Recorded In the last 12 months, was t here a time when you were not able to pay the mortgage or rent on time? No 07/09/2020 In the last 12 months, how many places have you lived? 1 07/09/2020 In the last 12 months, was t here a time when you did not have a steady place to sleep or slept in a intermediate (including now)? No 07/09/2020 Education Answer Date Recorded What is the highest level of school you have completed or the highest degree you have received? Some college, no degree 07/09/2020 Comments No Sex and Gender Information Value Date Recorded Sex Assigned at Not on file Legal Sex Female 2:39 PM STACKER AND SORTER OPERATOR Gender Identity Not on file Sexual Orientation Not on file Last Filed Vital Signs Vital Sign Reading Time Taken Comments Blood Pressure 104/66 02/17/2024 3:07 PM STACKER AND SORTER OPERATOR Pulse 75 02/17/2024 3:07 PM STACKER AND SORTER OPERATOR Temperature 36.5 C (97.7 F) 02/17/2024 3:07 PM STACKER AND SORTER OPERATOR Respiratory Rate 20 02/17/2024 3:07 PM STACKER AND SORTER OPERATOR Oxygen Saturation 98% 02/17/2024 3:07 PM STACKER AND SORTER OPERATOR Inhaled Oxygen Concentration - - Weight 53.7 kg (118 lb 6.4 oz) 02/17/2024 3:09 P M STACKER AND SORTER OPERATOR Height 167.6 cm (5' 6) 02/17/2024 3:09 PM STACKER AND SORTER OPERATOR Body Mass Index 19.11 02/17/2024 3:09 PM STACKER AND SORTER OPERATOR Plan of Treatment Health Maintenance Due Date Last Done Comments CT Colonography 1965 Cologuard 1965 FIT 1965 HIV Screening 1965 Mammogram 1965 Office Visit for Blood Pressure Check / Re-check 1965 Hepatitis B Vaccines (1 of 3 - 19+ 3-dose series) 1984 Zoster Vaccines (1 of 2) 1984 Pneumococcal vaccine (50+ years) (4 of 4 - PCV20 or PCV21) 10/02/2020 10/03/2015, 07/07/2012, 10/02/2011, Additional history exists COVID-19 Vaccine (4 - season) 2023 02/12/2021, 06/09/2020, 05/19/2020 Depression Screening (Annual PHQ-2) 03/02/2024 Influenza Vaccine (#1) 2024 , 01/21/2022, 02/12/2021, Additional history exists Fasting Glucose for Diabetes Screening 11/17/2026 11/18/2023, 10/30/2023, 10/13/2023, Additional history exists Lipid (Cholesterol) Screening 12/02/2027 12/01/2022, 09/18/2022, 03/24/2022, Additional history exists DTaP,Tdap,and Td Vaccines (5 - Td or Tdap) 04/08/2029 04/08/2019, 05/22/2014, 09/23/2002, Additional history exists Colonoscopy 06/10/2033 06/11/2023, 07/31, 12/08/2011 Colorectal Cancer Screening 06/10/2033 Hepatitis B Screening Discontinued 07/12/2023, 012 HPV Vaccines Aged Out No longer eligi ble based on patient's age to complete this topic IPV Vaccines Aged Out No longer eligi ble based on patient's age to complete this topic Medical Devices Implanted Type Area Tuck Pointer Device Identifier Shelf Expiration Date Model / Serial / Lot Implantable Port Implantable Port Chest Description:Port (left side) 2014 Stent Other Stent Other Heart Description:2 stents (2012) Procedures Procedure Name Priority Date/Time Associated Diagnosis Comments BASIC METABOLIC PANEL, S/P Routine 12/12/2019 2:40 PM CDT Osteomyelitis (HCC) HEPATITIS B SURFACE ANTIGEN Routine 02/28/2012 4:23 AM STACKER AND SORTER OPERATOR LIPID PANEL, S Routine 02/03/2012 9:05 AM STACKER AND SORTER OPERATOR COLONOSCOPY Routine 12/08/2011 9:12 AM CDT from Last 3 Months or Most Recently Relevant to Health Maintenance Results * (ABNORMAL) Basic Metabolic Panel (12/12/2019 2:40 PM CDT) Potassium, P 3.9 3.6 - 5.2 mmol/L 12/12/2019 3:49 PM CDT NPRG Sodium, P 143 135 - 145 mmol/L 12/12/2019 3:49 PM CDT NPRG Chloride, P 106 98 - 107 mmol/L 12/12/2019 3:49 PM CDT NPRG Bicarbonate, P 27 22 - 29 mmol/L 12/12/2019 3:49 PM CDT NPRG Anion Gap, P 10 7 - 15 12/12/2019 3:49 PM CDT NPRG BUN (Blood Urea Nitrogen), P 37(H) 6 - 21 mg/dL 12/12/2019 3:49 PM CDT NPRG Creatinine 1.12(H) 0.59 - 1.04 mg/dL 12/12/2019 3:49 PM CDT NPRG eGFR-Black/Afri can Sammarinese 65 >=60 mL/min/BSA 12/12/2019 3:49 PM CDT NPRG Comment: ----ADDITIONAL INFORMATION---- Estimated GFR calculated using the 2009 CKD_EPI creatinine equation. eGFR Non-Black/Afric an Sammarinese 56(L) >=60 mL/min/BSA 12/12/2019 3:49 PM CDT NPRG Comment: ----ADDITIONAL INFORMATION---- Estimated GFR calculated using the 2009 CKD_EPI creatinine equation. Calcium, Total, P 10.3(H) 8.6 - 10.0 mg/dL 12/12/2019 3:49 PM CDT NPRG Glucose, P 123 70 - 140 mg/dL 12/12/2019 3:49 PM CDT NPRG Blood (Blood, Venous) 12/12/2019 2:40 PM CDT 12/12/2019 3:28 PM CDT us Robert Tran M.D. LAB BLOOD ADD-ON Final Result [facility] [address] [place] [address], [facility] NPRG [facility] [address] [place] [address] * Hepatitis B Surface Antigen (02/28/2012 4:23 AM STACKER AND SORTER OPERATOR) HBs Antigen, S Negative Negative [facility] 02/28/2012 4:23 AM STACKER AND SORTER OPERATOR 02/28/2012 4:23 AM STACKER AND SORTER OPERATOR us Chiquita German M.D. LAB MICROBIOLOGY - BL OOD ORDERABLES Final Result [facility] [address] [place], [place] [address] * (ABNORMAL) Lipid Panel (02/03/2012 9:05 AM STACKER AND SORTER OPERATOR) Cholesterol, HDL, S 68 SeeComment MG/DL [facility] Comment: Reference Range: NCEP guidelines (ages 18y and up) Low: <40 Normal: 40-59 High : > or =60 Calculated LDL 266(H) SeeComment MG/DL [facility] Comment: The markedly elevated LDL level is suggestive of familial hypercholesterolemia (FH) or another related genetic disease, familial defective oteR479 (FDB). Molecular genetic testing for FH and FDB is available through [facility] [employer]: FH/ADH Genetic Reflex Panel (test 98851). LDL cholesterol can be markedly increased in cholestatic liver disease due to the presence of LpX. Family studies are recommended, including biochemical testing for lipids (total cholesterol, triglycerides, LDL cholesterol and HDL cholesterol) in family members. Please contact the laboratory at or the on-line test catalog at [employer] for information about how to order these tests. Further interpretation would require clinical information. Reference Range: NCEP guidelines (ages 18y and up) Optimal: <100 Near Optimal: 100-129 Borderline high: 130-159 High: 160-189 Very high: > or =190 Cholesterol, Non-HDL, Calculated 312(H) SeeComment MG/DL [facility] Comment: Reference Range: NCEP guidelines Desirable: <130 Borderline high: 130-159 High: 160-189 Very high: > or =190 Cholesterol, Total 380(H) SeeComment MG/DL [facility] Comment: Reference Range: NCEP guidelines (ages 18y and up) Desirable: <200 Borderline high: 200-239 High: > or =240 Triglycerides 229(H) SeeComment MG/DL [facility] Comment: Reference Range: NCEP guidelines (ages 18y and up) Normal: <150 Borderline high: 150-199 High: 200-499 Very high: > or =500 02/03/2012 9:05 AM STACKER AND SORTER OPERATOR 02/03/2012 9:05 AM STACKER AND SORTER OPERATOR us Alen Roland M.D. LAB BLOOD ADD-ON Final Result Performing Organization Address City/[facility]/ZIP Co de Phone Number [facility] [address] * Colonoscopy (12/08/2011 9:12 AM CDT) 12/08/2011 9:12 AM CDT Nai Rasheed GI PROCEDURE ORDERABLES Fi nal Result Performing Organization Address City/State/[facility] Co de Phone Number [facility] [address] [place] [address] from Last 3 Months or Most Recently Relevant to Health Maintenance Insurance [facility] [place] [id number] MEDICARE Care Teams Class A Lineman Relationship Specialty Start Date End Date Elsewhere, Pcp PCP - General 05/04/20
--- OUTSIDE RECORDS SUMMARY | 2024-10-13 08:53 | XMS_ITS | Encounter Summary ---
Author Organization [facility] Address [address] [place] [address] Care Team Providers Care [employer] Social Studies Teacher Name Role Phone Robert Marley MD Primary Care Provider Tayo Lacey MD Unavailable [phone] Christopher Quiroga MD Unavailable Claudia Yousif RN Unavailable Lance Simpson PA-C Unavailable Sherri Kingston Unavailable Delvin Bob MD Unavailable Jovanni Dempsey MD Unavailable Jovanni Dempsey MD Unavailable [phone] Len Hooks MD Unavailable Delvin Bob MD Unavailable Love Hernandez-C Unavailable Conrado Evans MD Unavailable Love Hernandez-C Unavailable [phone] Gordy Nickerson MD Unavailable [phone] Everardo Grant MD Unavailable Rey Billings MD Unavailable [phone] Conrado Evans MD Unavailable Delvin Lopez MD Unavailable [phone] Carissa Putnam RN Unavailable [phone] Encounter Details Date Type Department Care Team (Late Contact Info) Description 03/14/2022 MyC Medical Advice [facility] [address] [place] [phone] Susan Pelletier, RN Social History Tobacco Use Types Packs/Day Years Used Date Smoking Tobacco: Former Smokeless Tobacco: Never Alcohol Use Standard Drinks/Week Comments No 0 (1 standard drink = 0.6 oz pur e alcohol) PHQ-2 Answer Date Recorded PHQ-2 Score 5 03/12/2022 Comments No Sex and Gender Information Value Date Recorded Sex Assigned at Not on file Legal Sex Female 3:26 AM MAID SUPERVISOR Gender Identity Not on file Sexual Orientation Not on file Occupation Industry Job Start Date Job End Date Not on file Not on file Not on file Not on file documented as of this encounter Plan of Treatment Upcoming Encounters Date Type Department Care Team (Late Contact Info) Description 10/25/2024 10:00 AM CDT Virtual Visit [facility] [address] [place] [address] Edith Brito 10/26/2024 8:30 AM CDT Lab 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 The [place] [facility] of [facility] ([facility]) and CDC recommend that we screen this patient to prevent the spread of these organisms within our healthcare facility. Infection Prevention has placed orders for collecting a rectal swab for CP-COMPUTER FORENSICS INVESTIGATOR to evaluate if this patient is now a carrier. This patient was identified to have a low risk exposure in which case Contact Precautions are not necessary unless the patient tests positive. Screening is voluntary. Please notify Infection Prevention if the patient declines testing. Additional information and resources can be found on the Infection Prevention [employer]point page. 08/04/2023 08/04/2023 02/02/2024 11:39 PM MAID SUPERVISOR Rule Out Parvovirus 09/28/2023 09/28/2023 10/05/19 11:41 PM CDT Assessment Noted Time PHQ-9 Depression Total Score: 18 023 10:27 AM MAID SUPERVISOR documented as of this encounter Care Teams [employer] Social Studies Teacher Relationship Specialty Start Date End Date Robert Marley MD [facility] [id number] [place] [address] PCP - General Family Practice 12/08/10 Tayo Lacey MD [facility] [id number] [place] [address] Cardiology 08/30/14 Christopher Quiroga MD [facility] [address] [place] [address] Oncology 07/02/16 Claudia Yousif, SONIA Nurse Coordinator Gastroenterology 02/09/17 09/16/22 Lance Simpson PA-C [address] [place] [address] Physician Wearing Apparel Shaker Physician Wearing Apparel Shaker 01/07/18 Sherri Kingston PA [address] [place] [address] [place] [address] Physician Wearing Apparel Shaker Physician Wearing Apparel Shaker 12/21/18 Delvin Bob MD [address] [place] [address] Internal Medicine 11/11/19 Jovanni Dempsey MD [address] [place] [address] [id number] Assigned Nephrology Provider 03/24/21 03/14/22 Jovanni Dempsey MD [address] [place] [address] [id number] Assigned Nephrology Provider 03/15/22 03/21/22 Len Hooks MD [address] [place] [address] Assigned Nephrology Provider 03/22/22 12/26/22 Delvin Bob MD [address] [place] [address] Assigned PCP 04/26/22 12/12/22 Love Hernandez PA-C [address] [address] Physician Wearing Apparel Shaker Urology 12/01/22 Conrado Evans MD [address] [address] Assigned Nephrology Provider 12/27/22 06/21/24 Love Hernandez PA-C [address] [facility] [address] [place], [place] [phone] Assigned Surgical Provider 01/17/23 [place] [address] [place] [address] Assigned Gastroenterology Provider 07/23/23 Everardo Grant MD [address] [place] [address] Physician Infectious Diseases 09/23/23 Rey Billings MD [address] [place] [address] Assigned Infectious Disease Provider 10/23/23 Conrado Evans MD [address] [place] [address] Nephrology 08/25/24 Delvin Lopez MD [address] [place] [address] Nephrology 08/25/24 Carissa Putnam RN [facility] [address] [place] [address] Specialty Airport Sales Agent Pharmacy 10/10/24 documented as of this encounter
--- OUTSIDE RECORDS SUMMARY | 2024-10-13 08:54 | XMS_ITS | Clinical Summary ---
Author Organization [facility] Address [address] [place] [id number] Care Team Providers Care Pin Machine Operator Name Role Phone Robert Akbar MD Primary Care Provider Allergies Active Allergy Reactions Criticality Noted Date Comments Blood-Group Specific Substance Other - Describe In Comment Field 07/12/2023 Patient has anti-N and a warm autoantibody. Blood products may be delayed. Draw patient 24 hours prior to transfusion. For [employer] testing, draw one red top and two purple top tubes for all Type and Screen orders. 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 Finding compatible RBCs may take up to 24 hours or more. Consult with the Blood Bank MD for transfusion guidance. Medications colesevelam (WELCHOL) 625 mg tablet Take 625 mg by mouth two times daily with meals. 023 Active tacrolimus (PROGRAF) 0.5 mg capsule Take 0.5 mg by mouth every 12 hours. Total daily dose = 4.5mg BID 024 Active tacrolimus (PROGRAF) 1 mg capsule Take 4 mg by mouth every 12 hours. Total daily dose = 4.5mg BID Active ferrous gluconate 324 mg (37 mg iron) tabletIndications :Anemia, unspecified type Take 1 Tablet by mouth once daily with a meal. 90 Tablet 3 024 Active sirolimus (RAPAMUNE) 1 mg tablet Take 3 mg by mouth once daily. Active topiramate (TOPAMAX) 50 mg tabletIndications :Headache syndrome TAKE 1 TABLET BY MOUTH 2 TIMES DAILY. 180 Tablet 3 024 Active pantoprazole (PROTONIX) 40 mg delayed-release tabletIndications :Chronic GERD TAKE 1 TABLET BY MOUTH EVERY DAY 90 Tablet 3 024 Active gabapentin (NEURONTIN) 300 mg capsuleIndication s:Autonomic neuropathy TAKE 1 CAPSULE (300 MG) BY MOUTH TWO TIMES DAILY. 180 Capsule 2 024 Active buPROPion (WELLBUTRIN XL) 150 mg Extended-Release tabletIndications :Anxiety and depression TAKE 1 TABLET BY MOUTH ONCE DAILY. 90 Tablet 2 024 Active acetaminophen (TYLENOL EXTRA STRGTH) 500 mg tabletIndications :Acute back pain with radiculopathy Take 2 Tablets (1,000 mg) by mouth 3 times daily if needed for Pain. Max acetaminophen dose: 4000mg in 24 hrs. 025 Active jhklqf-inezrhzg-o mylase (Creon) 12,000-38,000 -60,000 unit cpDR delayed-release capsule Take 2 Capsules by mouth every 8 hours. 024 Active aspirin (ECOTRIN) 81 mg enteric coated tabletIndications :Chronic deep vein thrombosis (DVT) of femoral vein of right lower extremity (HC) Take 1 Tablet (81 mg) by mouth once daily. 025 Active rosuvastatin 40 mg tabletIndications :Mixed hyperlipidemia Take 0.5 Tablets (20 mg) by mouth at bedtime. 025 Active traMADoL 50 mg tabletIndications :Cellulitis, unspecified cellulitis site Take 1 Tablet (50 mg) by mouth every 6 hours if needed for Pain. 15 Tablet 06/08/19 25 2:46 PM CDT 025 Active apixaban (Eliquis) 5 mg tabletIndications :Chronic deep vein thrombosis (DVT) of femoral vein of right lower extremity (HC) TAKE 1 TABLET BY MOUTH TWO TIMES DAILY. 180 Tablet 3 025 Active Eliquis 5 mg tabletIndications :Chronic deep vein thrombosis (DVT) of femoral vein of right lower extremity (HC) TAKE 1 TABLET (5 MG) BY MOUTH TWO TIMES DAILY. 180 Tablet 2 024 2024 Discontinued Active Problems Problem Noted Date Diagnosed Date History of kidney transplant 06/23/2024 Acute hypoxic respiratory failure 06/07/2024 Sepsis 06/05/2024 Acute back pain with radiculopathy 03/18/2024 Colitis 03/16/2024 Sepsis with acute organ dysfunction 03/16/2024 E coli infection 10/13/2023 Parvovirus infection 09/09/2023 Protein-calorie malnutrition 07/12/2023 DM (diabetes mellitus), type 1 02/07/2023 Charcot ankle, left 08/25/2022 S/P amputation of lesser toe, left 06/05/2022 Other chronic pulmonary embo lism without acute cor pulmonale 06/05/2022 Vitreous hemorrhage of right eye 06/05/2022 Adrenal insufficiency 06/05/2022 Incarcerated incisional hernia following transpl ant 01/08/2022 S/P robotic repair of incarcerated incisional he rnia 01/08/2022 Neurogenic orthostatic hypotension 03/19/2021 Autonomic neuropathy 05/02/2016 Pancreas and kidney transplanted, 01/1303/23/19 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 She has never used smokeless tobacco. No data found. ACP (advance care planning) 09/20/2012 Overview (09/20/2012): Patient has identified Health Care Agent(s): No-spokes person would be Darrion, Add Health Care Agents: No Patient has Advance Care Plan Documents (Health Care Directive, POLST): No, referral made to Palliative Care.Order placed for ACP Session Patient has identified Specific Treatment Preferences: No Specific limits to treatment preferences NOT identified: ASSUME FULL TREATMENT. Assessment & Plan (09/24/2012 12:56 PM CDT): HCD mailed to patient. Yanet Guerrero design analyst Release Specialist [phone] 09/24/2012 CAD, s/p stent x 2 07/1207/30/2012 Chronic deep vein thrombosis (DVT) of both lower extremities 03/25/2012 Insomnia, unspecified 02/19/2012 Anemia of chronic renal failure 12/30/2011 Mixed hyperlipidemia 06/10/2010 Chronic pain 06/05/2010 Restless legs syndrome (RLS) 05/15/2010 vitamin D deficiency 01/22/2010 GERD (gastroesophageal reflux disease) 0 Depression with anxiety 08/17/2009 Hypothyroidism 08/17/2009 Vision problem 08/17/2009 Overview (08/17/2009): lazy eye L Routine health maintenance 08/17/2009 Overview (08/26/2024): Last cpx-05/08 Last mammogram-08/24 Last lipid 03/11, LDL-188 Last colonoscopy-10/21, recheck 10 years Resolved Problems Problem Noted Date Diagnosed Date Resolved Date Community acquired pneumonia 03/01/2024 03/16/2024 Pneumonia of left lower lobe due to infectious organism 03/01/2024 03/16/2024 E coli bacteremia 10/16/2023 03/16/2024 Sepsis secondary to UTI 10/14/202310/01 Acute renal failure superimp osed on stage 3 chronic kidney disease 10/14/2023 03/16/2024 PAUL (acute kidney injury) 07/12/2023 Acute cystitis without hematuria 07/12/2023 03/16/2024 Weight loss 07/12/2023 03/16/2024 Severe anemia 06/10/2023 06/15/2023 Normocytic anemia 06/10/2023 06/15/2023 LUQ pain 06/10/2023 07/12/2023 Transaminasemia 06/10/2023 10/23/2023 Anemia 06/09/2023 07/21/2023 Hypotension 06/09/2023 07/04/2024 Back pain 06/09/2023 07/12/2023 UTI (urinary tract infection) 06/09/2023 07/12/2023 Severe sepsis 06/09/2023 07/12/2023 Recurrent UTI 05/15/2023 10/23/2023 End stage renal disease 04/24/202306/30 Sepsis 04/16/2023 04/21/2023 Port-A-Cath in place 02/09/2023 023 Bacteremia 02/09/2023 05/15/2023 Septic shock 02/07/2023 02/13/2023 Severe sepsis 02/07/2023 06/15/2023 Fbcbb-cj-cxzgrnw kidney injury 02/07/2023 06/15/2023 History of DVT (deep vein thrombosis) 02/07/2023 02/13/2023 SBO (small bowel obstruction) 02/07/2023 07/12/2023 Elevated troponin 02/07/2023 05/15/2023 Neuropathy 02/07/2023 02/13/2023 Nausea vomiting and diarrhea 02/07/2023 05/15/2023 Severe sepsis 08/21/2022 02/13/2023 Other autoimmune hemolytic anemia 06/05/2022 02/13/2023 Diabetic ulcer of left heel associated with type 2 diabetes mellitus, with fat layer exposed 06/05/2022 07/12/2023 Osteomyelitis of second toe of left foot 06/05/2022 07/12/2023 Mild major depression 06/05/20222022 Chronic kidney disease, stage 4 (severe) 06/05/2022 07/12/2023 Idiopathic thrombocytopenic purpura 03/19/2021 07/16/2021 Type 2 diabetes mellitus wit h chronic kidney disease, without long-term current use of insulin 03/19/2021 06/09/2022 Acute respiratory failure with hypoxia 03/19/2021 11/04/2022 Dysautonomia 11/08/2020 06/09/2022 Anticoagulation monitoring, INR range 2-3 10/08/2017 12/08/2022 DVT of deep femoral vein, right 10/07/2017 02/13/2023 Deep vein thrombosis (DVT) o f proximal vein of right lower extremity, unspecified chronicity 12/02/2016 03/02/2017 C. difficile diarrhea 09/25/20162024 Hemolytic anemia 12/04/2015 07/21/2023 (DVT) of proximal vein of ri ght lower extremity 10/08/2015 11/13/2017 Deep vein thrombosis of right lower extremity 06/26/19 16 12/03/2015 Right leg DVT 03/19/2015 04/11/2015 Hypotension 12/26/2014 06/09/2022 Left leg DVT 12/19/2014 12/26/2014 Anticoagulation monitoring, INR range 2.5-3.5 [V58.61] 10/24/2014 02/20/2017 Hypertensive emergency 10/20/201211/29 Head ache 10/20/2012 11/29/2012 ESRD (end stage renal disease) on dialysis 09/20/2012 03/28/2014 Acute respiratory failure 09/20/2012 Pleural effusion, bilateral 09/20/2012 12/03/2015 Acute on chronic abdominal pain 09/20/2012 01/01/2015 Encounter for palliative care 09/20/2012 10/23/2023 Overview (09/20/2012): Introduced to ACP and manage symptoms Chest wall pain 07/30/2012 01/06/2013 Left-sided chest wall pain 07/06/2012 1 03/08/2012 pulmonary embolism 03/11/2012 3 Overview (03/11/2012): INR goal 2-3 Chronic kidney disease (CKD) , stage IV (severe) 03/11/2012 11/29/2012 Overview (03/11/2012): GFR< 20 03/2012 at [place] DVT (deep venous thrombosis) 03/05/2012 12/03/2015 Proteinuria 10/09/2011 07/30/2012 Orthostatic hypotension 08/05/201103/03 Diabetic autonomic neuropathy 05/15/2010 05/02/2016 Edema 01/22/2010 01/01/2015 Diabetes mellitus type I, 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, 01/1308/17/2009 05/02/2016 Encounters Date Type Department Care Team Description [facility] [address] [place] [address] Robert Akbar MD Refill Request (Eliquis) 08/24/2024 11:40 AM CDT Ancillary Procedure [facility] [address] [facility] [address] [place] [address] 08/24/2024 Travel from Last 3 Months Immunizations Immunization Administration Dates Next Due COVID-19 vaccine (Green Genes-Bio NTech 30mcg/0.3mL) PF, MDV 02/12/2021,06/09/2020,05/19/2020 HIB PRP-T (ActHIB,Hiberix) 10/03/2015 Influenza A (H1N1), Inactiva gerald (Age >=3 Years) 01/11/2009 Influenza RIV4 (Age 18+ Years) PRESERV FREE 01/30 Influenza, IIV3 (Age >=3 years) 04/30/2012,12/02,01/11/1999 Influenza, IIV4 02/13/2023,01/21/2022,03/12/2020 Influenza, IIV4 (=>6mos) MDV 12/17/2018 Pneumococcal Poly,23-Valent (Pneumovax) 07/08/19 13,10/02/2011 Pneumococcal conj 13-Valent (Prevnar 13) 016 Pneumococcal conj 7-Valent (Prevnar 7) 5 Td (Age >=7 Years) 09/23/2002 Tdap 04/08/2019,05/22/2014 Tuberculin (PPD) 04/12/2013 Family History Medical History Relation Name Comments Hypertension Father Heart Disease Maternal Grandfather HI Heart Disease Maternal Uncle 1 HI Diabetes Maternal Uncle 2 Cancer-breast Paternal Grandmother Relation Name Status Comments Father Maternal Grandfather Maternal Uncle 1 Maternal Uncle 2 Paternal Grandmother Social History Tobacco Use Types Packs/Day Years Used Date Smoking Tobacco: Former Cigarettes 0.5 5 0 03/02/1986 - 03/02/1991 Passive Smoke Exposure: Past Smokeless Tobacco: Never Tobacco Cessation:Counseling Given: Not Answered Alcohol Use Standard Drinks/Week Comments No 0 (1 standard drink = 0.6 oz pur e alcohol) PHQ-2 Answer Date Recorded PHQ-2 TOTAL SCORE 0 03/24/2024 Social Connections Answer Date Recorded Do you often feel lonely or isolated from those around you? 0 06/06/2024 Financial Resource Strain Answer Date R ecorded Difficulty of Paying Living Expenses 3 08/12/2022 Difficulty of Paying Living Expenses Not on file 08/12/2022 Food Insecurity Answer Date Recorded Do you worry your food will run out before you are able to buy more? 1 06/06/2024 Transportation Needs Answer Date Record ed Does lack of transportation keep you from medica l appointments? 1 06/06/2024 Does lack of transportation keep you from work, meetings or getting things that you need? 1 06/06/2024 Housing Stability Answer Date Recorded What is your housing situation today? 1 06/06/2024 Interpersonal Safety Answer Date Record ed Are you being hit, kicked, p ushed or yelled at (see row info)? No 06/05/2024 Interpersonal Safety Abuse 12 - 18 Not on file 06/05/2024 Interpersonal Safety Ambulatory Vulnerability No t on file 06/05/2024 Utilities Answer Date Recorded Do you have trouble paying f or utilities (for example, heat, electricity, water, phone)? 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 Not on file Not on file Not on file Obstetrics History Last Filed Vital Signs Vital Sign Reading Time Taken Comments Blood Pressure 90/46 06/23/2024 8:09 AM CDT Pulse 88 06/23/2024 8:09 AM CDT Temperature 37.9 C (100.2 F) 06/23/2024 8:09 AM CDT Respiratory Rate 16 06/07/2024 3:54 PM CDT preparing for dc Oxygen Saturation 97% 06/07/2024 12: 23 PM CDT Inhaled Oxygen Concentration - - Weight 57.4 kg (126 lb 9.6 oz) 06/10/2024 10:51 AM CDT Height 167.6 cm (5' 6) 06/05/2024 5:13 PM CDT Body Mass Index 20.43 06/05/2024 5:13 PM CDT Plan of Treatment Health Maintenance Due Date Last Done Comments Hepatitis B series for 19+ ( 1 of 3 - 19+ 3-dose series) 1984 Zoster (shingles) series for age 50+ (1 of 2) 1984 Pneumococcal series for age 50+ (4 of 4 - PCV20 or PCV21) 10/02/2020 10/03/2015, 07/07/2012, 10/02/2011, Additional history exists COVID-19 vaccine series (4 - season) 2023 02/12/2021, 06/09/2020, 05/19/2020 Influenza Vaccine (#1) 2024 , 01/21/2022, 02/12/2021, Additional history exists Depression screening for age 12+ 03/28/2025 03/28/2024, 03/24/2024, 02/20/2023, Additional history exists BMI (ht and wt on same day) for age 18+ 04/20/2025 04/20/2024, 03/29/2024, 11/18/2022, Additional history exists Mammogram for age 45-75 08/24/2025 08/25/19, 11/15/2013, 06/02/2012, Additional history exists Lipids for age 45-75 03/31/2029 03/31/2024, 09/18/2022, 07/30/2012, Additional history exists Tetanus booster 04/08/2029 04/08/2019, 05/01, 09/23/2002 Colonoscopy through age 75 06/10/203306/10, 10/14/2021, 10/14/2021, Additional history exists HIV for age 15-65 Completed 07/12/2023, 09/18/2022 Hepatitis C screening for ag e 18-79 Completed 07/12/2023, 09/18/2022 Medical Devices Implanted Type Area Combiner Operator Device Identifier Shelf Expiration Date Model / Serial / Lot Mesh Ventral [id number] Ventralight St W/Echo2 - [id number] Implanted:Qty: 1 on 01/08/2022 by Trell Serrato MD at [facility] N/A: Abdomen [employer] 09/26/2022 [id number] / / [id number] Procedures Procedure Name Priority Date/Time Associated Diagnosis Comments HEMOGLOBIN A1C MONITORING (POCT) Routine 09/07/2024 9:51 AM CDT Type 1 diabetes mellitus with other specified complication (HC) XR MAMMO HALEIGH BILAT SCREEN Routine 08/24/2024 12:39 PM CDT Encounter for screening mammogram for malignant neoplasm of breast LIPID PANEL Routine 03/31/2024 10:27 AM HEMMING AND TACKING MACHINE OPERATOR Chronic deep vein thrombosis (DVT) of femoral vein of right lower extremity (HC) ANTI HIV 1/2 [place] 07/12/2023 1:48 AM CDT ANTI HCV [place] 07/12/2023 1:48 AM CDT COLONOSCOPY 06/11/2023 2:04 PM CDT from Last 3 Months or Most Recently Relevant to Health Maintenance Results * (ABNORMAL) HEMOGLOBIN A1C MONITORING (POCT) (09/07/2024 9:51 AM CDT) HEMOGLOBIN A1C MONITORING (POCT) 5.3(TURRET LATHE TENDER AL) <=6.4 % [facility] Blood BLOOD SPECIMEN / Unknown 09/07/2024 9:51 AM CDT Narrative [facility] - 09/07/2024 10:21 AM CDT Notice: This testing was ordered by an outside provider and performed by [facility] @ [address] [place] [id number]. The original result report can be found in the patient record as a CareEverywhere A1C result from 09/07/24. us Robert Akbar MD CHEMISTRY Final Result [address] [id number] * XR MAMMO HALEIGH BILAT SCREEN (08/24/2024 12:39 PM CDT) Anatomical Region Laterality Modality BREASTS, Breast Left, Breast Right Bilateral Mammography Impressions 08/26/2024 8:11 AM CDT There is no radiographic evidence for malignancy. Recommend annual mammograms. MAMMOGRAM ASSESSMENT: ACR 1 Negative PATIENTS: You will also receive a letter with your examination results in an easy to read format. If you have questions about your results, please contact your referring provider. Narrative 08/26/2024 8:11 AM CDT For Patients: As a result of the Cures Act, medical imaging exams and procedure reports are released immediately into your electronic medical record. You may view this report before your referring provider. If you have questions, please contact your health care provider. XR MAMMO HALEIGH BILAT SCREEN [[id number]] CLINICAL HISTORY: This is an asymptomatic 58 y.o. patient. INDICATION FOR EXAM: Mammogram Screening. TECHNIQUE: CC and MLO views were obtained. This study was evaluated with the assistance of Computer-Aided Detection. Breast Tomosynthesis was used in interpretation. COMPARISON FILM: This is a baseline study. FINDINGS: The breasts are heterogeneously dense, which may obscure small masses. There are no dominant masses, suspicious micro calcifications or areas of architectural distortion. Robert Akbar MD MAMMO Final Result * LIPID PANEL (03/31/2024 10:27 AM HEMMING AND TACKING MACHINE OPERATOR) CHOLESTEROL,TOTAL 155 100 - 199 mg/dL 03/31/2024 11:10 AM HEMMING AND TACKING MACHINE OPERATOR [facility] Comment: Cholesterol, Total Reference Ranges Desirable <200 mg/dL Borderline 200-239 mg/dL High >=240 mg/dL TRIGLYCERIDES 135 <150 mg/dL 03/31/2024 11:10 AM HEMMING AND TACKING MACHINE OPERATOR [facility] HDL CHOLESTEROL 58 >40 mg/dL 11:10 AM HEMMING AND TACKING MACHINE OPERATOR [facility] NON-HDL CHOLESTEROL 97 <145 mg/dl 03/31/2024 11:10 AM HEMMING AND TACKING MACHINE OPERATOR [facility] CHOL/HDL RATIO 2.67 <4.50 03/31/2024 11:10 AM [facility] LDL CHOLESTEROL 70 <=130 mg/dL 03/31/2024 11:10 AM [facility] VLDL CHOLESTEROL 27 <=30 mg/dL 03/31/2024 11:10 AM HEMMING AND TACKING MACHINE OPERATOR [facility] PROVIDER ORDERED STATUS RANDOM 03/31/2024 11:10 AM HEMMING AND TACKING MACHINE OPERATOR [facility] Blood BLOOD SPECIMEN / Unknown Venipuncture / Unknown 03/31/2024 10:27 AM HEMMING AND TACKING MACHINE OPERATOR 03/31/2024 10:35 AM HEMMING AND TACKING MACHINE OPERATOR us Joselito Dunaway MD CHEMISTRY Final Result Performing Organization Address [facility] Co de Phone Number [facility] [address] [place] [address], [place] * ANTI HCV (07/12/2023 1:48 AM CDT) HEPATITIS C ANTIBODY Non-Reacti ve Non-React whit 07/13/2023 12:16 AM CDT [facility] Comment:Please note, per www .CDC.gov: If a patient is known to be at high risk of HCV infection, or is symptomatic, and the physician's suspicion of HCV infection is high, HCV RNA testing is often employed and is of diagnostic value, even after an initial negative anti-HCV test result. Blood BLOOD SPECIMEN / Unknown Butterfly / Unknown 07/12/2023 1:48 AM CDT 07/12/2023 1:54 AM CDT Olimpia Stark MD SEND OUTS Final Resul t Performing Organization Address [facility] Co de Phone Number [facility] [address] [place] [address], [place] * ANTI HIV 1/2 (07/12/2023 1:48 AM CDT) HIV-1/HIV-2 SCREEN Non-Reacti ve Non-Reacti ve 07/13/2023 12:16 AM CDT [facility] Comment:HIV-1 p24 and HIV-1/ HIV-2 Ab Not Detected. Blood BLOOD SPECIMEN / Unknown Butterfly / Unknown 07/12/2023 1:48 AM CDT 07/12/2023 1:54 AM CDT us Olimpia Stark MD SEND OUTS Final Resul t [facility] [address] [place] [address], [place] * COLONOSCOPY (06/11/2023 2:04 PM CDT) 06/11/2023 2:04 PM CDT Narrative Transcriptions Ivonne Aleman MD - 06/11/2023 5:30 PM CDT Endoscopy Patient Name: Nathan Monzon Procedure Date: 06/11/2023 Gender: Female Date of : 1965 Admit Type: Inpatient Procedure: Colonoscopy Proceduralist: Ivonne Aleman MD Referring MD: Robert Akbar Indications/Pre-Op Diagnosis: Iron deficiency anemia secondary to chronic blood loss, Iron deficiency anemia Medications: Monitored Anesthesia Care Procedure Description: The patient had risks, benefits and alternatives explained to andgave informed consent. The patient had a stable cardiopulmonary status and judged an adequate candidate for conscious sedation. The endoscope [id number] was passed through the anus andadvanced to the terminal ileum, with identification of the appendiceal orifice and IC valve. The colonoscopy was performed without difficulty. The patient tolerated the procedure well. The quality of the bowel preparation was evaluated using the BBPS (Jarbidge Bowel Preparation Scale) with scores of: Right Colon = 3, Transverse Colon = 3 and Left Colon = 3 (entire mucosa seen well with no residual staining, small fragments of stool or opaque liquid). The total BBPS score equals9. Complications: No immediate complications. Estimated Blood Loss & Specimen: Estimated blood loss: none. Specimen collected: None Findings: The perianal and digital rectal examinations were normal. The terminal ileum appeared normal. The colon (entire examined portion) appeared normal. Scattered small-mouthed diverticula were found in the sigmoidcolon. No additional abnormalities were found on retroflexion. Impressions/Post-Op Diagnosis: - The examined portion of the ileum was normal. - The entire examined colon is normal. - Diverticulosis in the sigmoid colon. - No specimens collected. Recommendation: - Discharge patient to home. - Resume regular diet. - Continue present medications. - Outpatient small bowel pillcam to finish anemia work-up. Ivonne Aleman MD 06/11/2023 5:30:04 PM This report has been signed electronically. Note Initiated On: 06/11/2023 2:04 PM Total Procedure Duration Time 0 hours 20 minutes 27 seconds Scope Withdrawal Time 0 hours 9 minutes 8 seconds Ivonne Aleman MD PROCEDURE ORD Final Result from Last 3 Months or Most Recently Relevant to Health Maintenance Additional Health Concerns Infection Onset Date Last Indicated MDRO Clearance Comment:VRE Outside location 12/26/19 02/10/2023 02/10/2023 C diff History 04/16/2023 04/16/2023 [place] [id number] MEDICARE PB ONLY MEDICARE PART A HB ONLY [facility] MEDICARE PB ONLY Advance Directives * DNR (Latest Code Status on File) Date Activated Date Inactivated Comments 06/07/2024 2:05 PM 06/07/2024 7:07 PM Question Answer Comments Code Status Discussion: Reviewed Preferences * Full Code Date Activated Date Inactivated Comments 06/06/2024 12:24 AM 06/07/2024 2:05 PM Question Answer Comments Code Status Discussion: Unable to Assess Preferences, Provider to review later * Full Code Date Activated Date Inactivated Comments 03/16/2024 2:06 PM 03/19/2024 2:44 PM Question Answer Comments Code Status Discussion: Reviewed Preferences * Full Code Date Activated Date Inactivated Comments 03/01/2024 7:11 PM 03/02/2024 4:51 PM Question Answer Comments Code Status Discussion: Reviewed Preferences * Full Code Date Activated Date Inactivated Comments 10/14/2023 3:03 AM 10/16/2023 2:55 PM Question Answer Comments Code Status Discussion: Reviewed Preferences Care Teams Pin Machine Operator Relationship Specialty [place] [address] [place] [address] PCP - General 05/22/09
--- OUTSIDE RECORDS SUMMARY | 2024-10-13 08:54 | XMS_ITS | Encounter Summary ---
Author Organization [facility] Address [address] [place] [address] Care Team Providers Care Cook Starch Name Role Phone Robert Marley MD Primary Care Provider Irish Kim RN Unavailable [phone] Chana Cheng MD Unavailable [phone] Anoop Garcia MD Unavailable Unavailable Barbraa Carlson MD Unavailable Tayo Lacey MD Unavailable [phone] Basil Plummer MD Unavailable Charleen Lynne MD Unavailable [phone] Olimpia Williamson RN Unavailable [phone] Rin Dewitt RN Unavailable [phone] Rin Dewitt RN Unavailable [phone] Qian Rodriguez MD Unavailable [phone] Sherri Kingston Unavailable [phone] Olimpia Williamson RN Unavailable [phone] Olimpia Williamson RN Unavailable [phone] Christopher Quiroga MD Unavailable Claudia Yousif RN Unavailable Lance Simpson PA-C Unavailable [phone] Olimpia Williamson RN Unavailable Sherri Kingston Unavailable [phone] Delvin Bob MD Unavailable [phone] Charleen Lynne MD Unavailable [phone] ChapaShakira zelaya MD Unavailable Unav ailable Zoltan Eric DPM Unavailable [phone] Delvin Bob MD Unavailable Maximo Mathis DO Unavailable + Sherri Kingston Unavailable [phone] Pedro Winchester MD Unavailable [phone] ChapaShakira zelaya MD Unavailable Unav ailable Jovanni Dempsey MD Unavailable [phone] Jovanni Dempsey MD Unavailable [phone] Len Hooks MD Unavailable Delvin Bob MD Unavailable [phone] Love Hernandez-C Unavailable [phone] Conrado Evans MD Unavailable [phone] Love Hernandez-C Unavailable Gordy Nickerson MD Unavailable [phone] Everardo Grant MD Unavailable Rey Billings MD Unavailable [phone] Conrado Evans MD Unavailable [phone] Delvin Lopez MD Unavailable [phone] Carissa Putnam RN Unavailable [phone] Encounter Details Date Type Department Care Team (Late st Contact Info) Description 06/15/2014 External Order Results [facility] 2nd Floor, [facility] [address] [id number] Social History Tobacco Use Types Packs/Day Years Used Date Smoking Tobacco: Former Smokeless Tobacco: Never Alcohol Use Standard Drinks/Week Comments No 0 (1 standard drink = 0.6 oz pur e alcohol) Comments No Sex and Gender Information Value Date Recorded Sex Assigned at Not on file Legal Sex Female 3:26 AM SCALDER Gender Identity Not on file Sexual Orientation Not on file Occupation Industry Job Start Date Job End Date Not on file Not on file Not on file Not on file documented as of this encounter Plan of Treatment Upcoming Encounters Date Type Department Care Team (Late st Contact Info) Description 10/25/2024 10:00 AM CDT Virtual Visit [facility] [address] [place] [address] Edith Brito 10/26/2024 8:30 AM CDT Lab [facility] [address] [facility] [address] [place] [phone] Conrado Evans MD [address] [facility] 353 [facility] [address] [place], [place] [address] documented as of this encounter Procedures Procedure Name Priority Date/Time Associated Diagnosis Comments EXTERNAL LAB RESULTS Routine 06/14/2014 9:45 AM CDT documented in this encounter Results * (ABNORMAL) TXP External Lab Result (06/14/2014 9:45 AM CDT) Glucose (External) 86 60 - 115 mg/dL LABDE SCAN Urea Nitrogen (External) 22 5 - 24 MG/DL LABDE SCAN Creatinine (External) 0.7 0.5 - 1.5 MG/DL LABDE SCAN Sodium (External) 147 135 - 149 MMOL/L LABDE SCAN Potassium (External) 2.9(LL) 3.6 - 5.1 MMOL/L LABDE SCAN Chloride (External) 107 96 - 114 MmOL/L LABDE SCAN CO2 (External) 30 20 - 32 MMOL/L LABDE SCAN Calcium (External) 8.6 8.4 - 10.6 MG/DL LABDE SCAN Amylase (External) 49 18 - 89 U/L LABDE SCAN Lipase Level (External) 94 23 - 300 U/L LABDE SCAN WBC Count (External) 6.13 5.00 - 10.00 K/UL LABDE SCAN RBC Count (External) 3.33(L) 3.90 - 5.03 m/ul LABDE SCAN Hemoglobin (External) 9.3(L) 12.0 - 15.5 GM/DL LABDE SCAN Hematocrit (External) 30.9(L) 34.9 - 44.5 % LABDE SCAN MCV (External) 93 82 - 98 FL LABDE SCAN MCH (External) 28 27 - 34 PG LABDE SCAN MCHC (External) 30(L) 32 - 36 GM/DL LABDE SCAN Platelet Count (External) 377 150 - 450 K/UL LABDE SCAN % Neutrophils (External) 70.2(H) 50.0 - 70.0 % LABDE SCAN % Lymphocytes (External) 8.6(L) 25.0 - 45.0 % LABDE SCAN % Monocytes (External) 13.9(H) 0.00 - 11.0 % LABDE SCAN % Eosinophils (External) 5.9 0.0 - 7.0 % LABDE SCAN % Basophils (External) 1.1 0.0-3.0 9 % LABDE SCAN % Immature Granulocytes (External) 0.3 % LABDE SCAN Absolute Neutrophils (External) 4.30 1.70 - 7.00 K/UL LABDE SCAN Absolute Lymphocytes (External) 0.53(L) 0.90 - 2.90 K/UL LABDE SCAN Absolute Monocytes (External) 0.85 0.30 - 0.90 K/UL LABDE SCAN Absolute Eosinophils (External) 0.36 0.00 - 0.50 K/UL LABDE SCAN Absolute Basophils (External) 0.07 0.00 - 0.20 k/ul LABDE SCAN Absolute Granulocytes (External) 0.02 k/ul LABDE SCAN 06/14/2014 9:45 AM CDT Narrative BOBBY PFT - 06/15/2014 9:38 AM CDT Verified by Rylee Guzman on 06/15/2014. us Patient Reported LABORATORY Edited Result - Final BREEZE PFT LABDE SCAN documented in this encounter Visit Diagnoses Not on filedocumented in this encounter Additional Health Concerns Infection Onset Date Last Indicated Resolved Time VRE-Contact Isolation Comment:Updated flag 02/06/2014 02/06/2014 12/08/2016 11:19 AM CDT 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, 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/08/2016 12/08/201606/30 3:52 PM CDT Rule Out COVID-19 07/09/2019 07/09/2019 07/10/2019 10:00 AM CDT VRE-Standard Precautions Comment:Patient meets criteria for PPE conservation. Standard Precautions is acceptable; Contact Precautions are not needed. If patient's condition changes (i.e. patient has a new MDRO positive during this admission, develops diarrhea or urine incontinence, or has new uncontrolled drainage, abscesses, or boils), patient should be placed into Contact Precautions, and Contact isolation added back to the chart. Infection Prevention will review patient charts Thursday- Thursday. It is not necessary to contact the IP on-call for review. Meena Torres, [facility] Infection Prevention 07/11/2019 at 3:56 PM 07/11/2019 07/11/2019 09/23/2019 10:03 AM CDT Rule Out COVID-19 07/24/2019 07/24/2019 07/25/2019 5:33 AM CDT 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, 06/03/15 urine 09/23/2019 09/23/2019 09/03/2019 11:12 AM CDT Rule Out COVID-19 09/27/2019 09/27/2019 09/27/2019 3:20 PM CDT VRE-Standard Precautions 11/01/2019 11/01/2019 5:40 PM CDT 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, 44/15 urine 12/26/2019 12/26/2019 Rule Out COVID-19 04/19/2020 04/19/2020 04/19/2020 1:56 PM SCALDER Rule Out COVID-19 04/19/2020 04/20/2020 04/20/2020 6:34 AM SCALDER Rule Out COVID-19 12/15/2020 12/15/2020 12/15/2020 4:33 PM CDT Rule Out C-difficile 01/06/2021 01/08/2021 021 11:43 AM SCALDER Rule Out C-difficile 07/10/2021 07/10/2021 022 5:56 PM CDT Rule Out C-difficile 07/16/2023 07/16/2023 024 9:21 PM CDT Rule Out Parvovirus 07/16/2023 07/16/2023 07/19/19 24 12:29 PM CDT Parvovirus 07/16/2023 07/16/2023 10/03/2024 4:22 PM CDT [id number] Comment:This patient was exposed to a person with a known CP-ASSAULT AMPHIBIOUS VEHICLE OFFICER and has the potential for having acquired this pathogen of concern. The [place] Department of Health ([facility]) and CDC recommend that we screen this patient to prevent the spread of these organisms within our healthcare facility. Infection Prevention has placed orders for collecting a rectal swab for CP-ASSAULT AMPHIBIOUS VEHICLE OFFICER to evaluate if this patient is now a carrier. This patient was identified to have a low risk exposure in which case Contact Precautions are not necessary unless the patient tests positive. Screening is voluntary. Please notify Infection Prevention if the patient declines testing. Additional information and resources can be found on the Infection Prevention MDRO Sharepoint page. 08/04/2023 08/04/2023 02/02/2024 11:39 PM SCALDER Rule Out Parvovirus 09/28/2023 09/28/2023 10/05/19 24 11:41 PM CDT documented as of this encounter Care Teams Cook Starch Relationship Specialty Start Date End Date Robert Marley MD [facility] [id number] [place] [address] PCP - General Family Practice 12/08/10 Irish Kim RN Registered Nurse Transplant 05/26/14 09/20/[address] [facility] [address] [place] [address] Nephrology 05/26/14 11/12/[address] [facility] [address] [place] [address] Transplant 05/26/14 02/02/18 Barbara Carlson MD [address] [place] [address] Referring Physician Nephrology 08/30/14 11/12/15 Tayo Lacey MD [address] [place] [phone] Cardiology 08/30/14 Basil Plummer MD [address] [place] [address] Neurology 05/09/15 04/23/16 Charleen Lynne MD [address] [place] [address] [phone] MD Oncology 06/14/15 12/19/18 Olimpia Williamson RN Nurse Coordinator Oncology 06/14/15 04/23/16 Rin Dewitt, RN Nurse Coordinator Neurology 07/24/15 04/23/16 Rin Dewitt RN Nurse Coordinator Neurology 10/25/15 10/12/17 Qian Rodriguez MD [address] [place] [id number] Nephrology 11/13/15 06/16/16 Sherri Kingston PA 420 [facility] 394 [place], [place] [address] Physician Proof Operator Physician Proof Operator 03/20/16 Olimpia Williamson, RN Nurse Coordinator Oncology 06/26/16 06/26/16 Olimpia Williamson, RN Nurse Coordinator Oncology 06/26/16 06/16/18 Christopher Quiroga MD [facility] [address] [facility] 200 [place] [address] Oncology 07/02/16 Claudia Yousif RN Nurse Coordinator Gastroenterology 02/09/17 09/16/22 Lance Simpson PA-C [address] [place] [phone] Physician Proof Operator Physician Proof Operator 01/07/18 Olimpia Williamson, RN Specialty Pole Peeling Machine Operator Hematology & Oncology 05/06/18 12/19/18 Sherri Kingston PA [address] [place] [address] [place], [place] [address] Physician Proof Operator Physician Proof Operator 12/21/18 Delvin Bob MD [address] [place] [address] [address] [place], [place] [phone] Internal Medicine 11/11/19 Charleen Lynne MD [address] [place] [address] [phone] Assigned Cancer Care Provider 12/23/19 03/23/21 Shakira Chapa MD [facility] [place] OF 06/29/2020 Assigned Surgical Provider 12/23/19 07/14/20 Zoltan Eric DPM [address] [facility] [address] [place] [address] Assigned Musculoskeletal Provider 12/23/19 07/26/21 Delvin Bob MD [address] [place] [address] [address] [place] [address] Assigned PCP 12/08/19 02/14/22 Maximo Mathis DO [address] [place] [address] Assigned Neuroscience Provider 02/12/20 08/09/21 Sherri Kingston PA 909 [facility] Urology [place], [place] [phone] Assigned Surgical Provider 07/15/20 10/06/20 Pedro Winchester MD [address] [place] [address] Assigned Heart and Vascular Provider 08/05/20 01/31/22 Shakira Chapa MD [place] [place] 06/29/2020 Assigned Surgical Provider 10/07/20 10/13/20 Jovanni Dempsey MD [address] [place] [address] Assigned Nephrology Provider 03/24/21 03/14/22 Jovanni Dempsey MD [address] [place] [address] Assigned Nephrology Provider 03/15/22 03/21/22 Len Hooks MD 717 [facility] 353 [place] [address] Assigned Nephrology Provider 03/22/22 12/26/22 Delvin Bob MD [address] [place] [address] [address] [place], [place] [address] Assigned PCP 04/26/22 12/12/22 Love Hernandez PA-C 6363 [facility] 500 [place] [address] Physician Proof Operator Urology 12/01/22 Conrado Evans MD 717 [facility] 353 [facility] [address] [place] [address] Assigned Nephrology Provider 12/27/22 06/21/24 Love Hernandez PA-C 6[address] [facility] [address] [place], [place] [address] Assigned Surgical Provider 01/17/23 [place] [address] [address], [place] [address] Assigned Gastroenterology Provider 07/23/23 Everardo Grant MD [address] [place], [place] [address] Physician Infectious Diseases 7/24/24 Rey Billings MD 909 [place], [place] [address] Assigned Infectious Disease Provider 10/23/23 Conrado Evans MD 717 [facility] 353 [facility] [address] [place], [place] [phone] Nephrology 08/25/24 Delvin Lopez MD [address] [place] [address] [phone] Nephrology 08/25/24 Carissa Putnam RN [facility] [address] [place], [place] 38[address] Specialty Pole Peeling Machine Operator Pharmacy 10/10/24 10/10/24 documented as of this encounter
--- OUTSIDE RECORDS SUMMARY | 2024-10-13 08:54 | XMS_ITS | Encounter Summary ---
Author Organization [facility] Address [address] [place] [address] Care Team Providers Care Command And Control Specialist Name Role Phone Robert Marley MD Primary Care Provider Irish Kim RN Unavailable [phone] Chana Cheng MD Unavailable [phone] Anoop Garcia MD Unavailable Unavailable Barbara Carlson MD Unavailable Tayo Lacey MD Unavailable [phone] Basil Plummer MD Unavailable Charleen Lynne MD Unavailable [phone] Olimpia Williamson RN Unavailable [phone] Rin Dewitt RN Unavailable [phone] Rin Dewitt RN Unavailable [phone] Qian Rodriguez MD Unavailable [phone] Sherri Kingston Unavailable [phone] Olimpia Williamson RN Unavailable [phone] Olimpia Williamson RN Unavailable [phone] Christopher Quiroga MD Unavailable Claudia Yousif RN Unavailable Lance Simpson PA-C Unavailable +[phone] Olimpia Williamson RN Unavailable [phone] Sherri Kingston Unavailable +[phone] Delvin Bob MD Unavailable [phone] Charleen Lynne MD Unavailable [phone] ChapaShakira zelaya MD Unavailable Unav ailable Zoltan Eric DPM Unavailable +[phone] Delvin Bob MD Unavailable [phone] Maximo Mathis DO Unavailable + Sherri Kingston Unavailable [phone] Pedro Winchester MD Unavailable [phone] ChapaShakira zelaya MD Unavailable Unav ailable Jovanni Dempsey MD Unavailable +[phone] Jovanni Dempsey MD Unavailable [phone] Len Hooks MD Unavailable Delvin Bob MD Unavailable +[phone] Love Hernandez-C Unavailable [phone] Conrado Evans MD Unavailable [phone] Love Hernandez-C Unavailable Gordy Nickerson MD Unavailable [phone] Everardo Grant MD Unavailable Rey Billings MD Unavailable [phone] Conrado Evans MD Unavailable Delvin Lopez MD Unavailable [phone] Carissa Putnam RN Unavailable [phone] Encounter Details Date Type Department Care Team (Late st Contact Info) Description 07/05/2014 External Order Results [facility] [address] [address] Social History Tobacco Use Types Packs/Day Years Used Date Smoking Tobacco: Former Smokeless Tobacco: Never Alcohol Use Standard Drinks/Week Comments No 0 (1 standard drink = 0.6 oz pur e alcohol) Comments No Sex and Gender Information Value Date Recorded Sex Assigned at Not on file Legal Sex Female 3:26 AM SHEET TAILER Gender Identity Not on file Sexual Orientation Not on file Occupation Industry Job Start Date Job End Date Not on file Not on file Not on file Not on file documented as of this encounter Plan of Treatment Upcoming Encounters Date Type Department Care Team (Late st Contact Info) Description 10/25/2024 10:00 AM CDT Virtual Visit [facility] [address] [place] [address] Edith Brito 10/26/2024 8:30 AM CDT Lab [facility] [address] [facility] 200 [place] [phone] Conrado Evans MD 714 [facility] 353 [facility] 1932 [place], [place] [address] documented as of this encounter Procedures Procedure Name Priority Date/Time Associated Diagnosis Comments EXTERNAL LAB RESULTS Routine 07/05/2014 9:10 AM CDT documented in this encounter Results * (ABNORMAL) TXP External Lab Result (07/05/2014 9:10 AM CDT) Calcium (External) 8.9 8.4 - 10.6 MG/DL LABDE SCAN Urea Nitrogen (External) 19 5 - 24 MG/DL LABDE SCAN Creatinine (External) 0.7 0.5 - 1.5 MG/DL LABDE SCAN Glucose (External) 101 60 - 115 mg/dL LABDE SCAN Sodium (External) 143 135 - 149 MMOL/L LABDE SCAN Potassium (External) 4.2 3.6 - 5.1 MMOL LABDE SCAN Chloride (External) 107 96 - 114 MMOL/L LABDE SCAN CO2 (External) 26 20 - 32 MMOL/L LABDE SCAN Amylase (External) 56 18 - 89 U/L LABDE SCAN Phosphorus (External) 2.9 2.5 - 4.5 MG/DL LABDE SCAN Magnesium (External) 1.5 1.5 - 2.6 MG/DL LABDE SCAN Lipase Level (External) 100 23 - 300 U/L LABDE SCAN INR (External) 2.4(H) 0.88 - 1.12 LABDE SCAN WBC Count (External) 6.36 5.00 - 10.00 K/UL LABDE SCAN RBC Count (External) 3.9 3.9 - 5.03 M/UL LABDE SCAN Hemoglobin (External) 10.9(L) 12.0 - 15.5 GM/DL LABDE SCAN Hematocrit (External) 36.0 34.9 - 44.5 % LABDE SCAN MCV (External) 92 82 - 98 FL LABDE SCAN MCH (External) 28 27 - 34 PG LABDE SCAN MCHC (External) 30(L) 32 - 36 GM/DL LABDE SCAN Platelet Count (External) 236 150 - 450 K/UL LABDE SCAN % Neutrophils (External) 75.3(H) 50.0 - 70.0 % LABDE SCAN % Lymphocytes (External) 8.2(L) 25.0 - 45.0 % LABDE SCAN % Monocytes (External) 9.4 0.0 - 11.0 % LABDE SCAN % Eosinophils (External) 6.8 0.0 - 7.0 % LABDE SCAN % Basophils (External) 0.3 0.0 - 3.0 % LABDE SCAN Absolute Neutrophils (External) 4.79 1.70 - 7.0 K/UL LABDE SCAN Absolute Lymphocytes (External) 0.52(L) 0.9 - 2.9 K/UL LABDE SCAN Absolute Monocytes (External) 0.6 0.3 - 0.9 K/UL LABDE SCAN Absolute Eosinophils (External) 0.43 0.0 - 0.5 K/UL LABDE SCAN Absolute Basophils (External) 0.02 0.0 - 0.2 K/UL LABDE SCAN 07/05/2014 9:10 AM CDT Neeta NESBITT - 07/05/2014 3:43 PM CDT Verified by Guerrero Pinzon on 07/05/2014. us Patient Reported LABORATORY Edited Result - [...] the IP on-call for review. Meena Torres, [facility] Infection Prevention 07/11/2019 at 3:56 PM 07/11/2019 07/11/2019 09/23/2019 10:03 AM CDT Rule Out COVID-19 07/24/2019 07/24/2019 07/25/2019 5:33 AM CDT 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, 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 09/23/2019 09/23/2019 09/0 03/2019 11:12 AM CDT Rule Out COVID-19 09/27/2019 09/27/2019 09/27/2019 3:20 PM CDT VRE-Standard Precautions 11/01/2019 11/01/2019 5:40 PM CDT 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, 15 urine 12/26/2019 12/26/2019 Rule Out COVID-19 04/19/2020 04/19/2020 04/19/2020 1:56 PM SHEET TAILER Rule Out COVID-19 04/19/2020 04/20/2020 04/20/2020 6:34 AM SHEET TAILER Rule Out COVID-19 12/15/2020 12/15/2020 12/15/2020 4:33 PM CDT Rule Out C-difficile 01/06/2021 01/08/2021 021 11:43 AM SHEET TAILER Rule Out C-difficile 07/10/2021 07/10/2021 022 5:56 PM CDT Rule Out C-difficile 07/16/2023 07/16/2023 024 9:21 PM CDT Rule Out Parvovirus 07/16/2023 07/16/2023 07/19/19 24 12:29 PM CDT Parvovirus 07/16/2023 07/16/2023 10/03/2024 4:[id number] Comment:This patient was exposed to a person with a known CP-REWEAVER and has the potential for having acquired this pathogen of concern. The [place] Department of Health ([facility]) and CDC recommend that we screen this patient to prevent the spread of these organisms within our healthcare facility. Infection Prevention has placed orders for collecting a rectal swab for CP-REWEAVER to evaluate if this patient is now a carrier. This patient was identified to have a low risk exposure in which case Contact Precautions are not necessary unless the patient tests positive. Screening is voluntary. Please notify Infection Prevention if the patient declines testing. Additional information and resources can be found on the Infection Prevention MDRO Sharepoint page. 08/04/2023 08/04/2023 02/02/2024 11:39 PM SHEET TAILER Rule Out Parvovirus 09/28/2023 09/28/2023 10/05/19 24 11:41 PM CDT documented as of this encounter Care Teams Command And Control Specialist Relationship Specialty Start Date End Date Robert Marley MD [facility] [address] [place] [address] PCP - General Family Practice 12/08/10 Irish Kim RN Registered Nurse Transplant 05/26/14 09/20/14 Chana Cheng MD [facility] [address] [place] [address] Nephrology 05/26/14 11/12/15 Anoop Garcia MD [facility] [address] [place] [address] Transplant 05/26/14 02/02/18 Barbara Carlson MD [address] [place] [address] Referring Physician Nephrology 08/30/14 11/12/15 Tayo Lacey MD [address] [place] [address] Cardiology 08/30/14 Basil Plummer MD [address] [place] [address] Neurology 05/09/15 04/23/16 Charleen Lynne MD [address] [place] [address]205 MD Oncology 06/14/15 12/19/18 Olimpia Williamson RN Nurse Coordinator Oncology 06/14/15 04/23/16 Rin Dewitt RN Nurse Coordinator Neurology 07/24/15 04/23/16 Rin Dewitt RN Nurse Coordinator Neurology 10/25/15 10/12/17 Qian Rodriguez MD [address] [place] [address] 878774 Nephrology 11/13/15 06/16/16 Sherri Kingston PA [address] [place] [address] 394 [place], [place] 45[address] Physician Roller Helper Physician Roller Helper 03/20/16 Olimpia Williamson, RN Nurse Coordinator Oncology 06/26/16 06/26/16 Olimpia Williamson, RN Nurse Coordinator Oncology 06/26/16 06/16/18 Christopher Quiroga MD [facility] [address] [place] [address] 8985[address] Oncology 07/02/16 Claudia Yousif RN Nurse Coordinator Gastroenterology 02/09/17 09/16/22 Lance Simpson PA-C [address] [place] [address] Physician Roller Helper Physician Roller Helper 01/07/18 Olimpia Williamson, RN Specialty Director [facility] 05/06/18 12/19/18 Sherri Kingston PA [address] [place] [address] [place]rology [place], [place] 9[address] Physician Roller Helper Physician Roller Helper 12/21/18 Delvin Bob MD [address] [place] [address] 250 [place], [place] 7[address] Internal Medicine 11/11/19 Charleen Lynne MD [address] [place] [address] Assigned Cancer Care Provider 12/23/19 03/23/21 Shakira Chapa MD [facility] [place] OF 06/29/2020 Assigned Surgical Provider 12/23/19 07/14/20 Zoltan Eric DPM [address] [facility] [address] [place] [address] Assigned Musculoskeletal Provider 12/23/19 07/26/21 Delvin Bob MD [address] [place] [address] 250 [place] [address] Assigned PCP 12/08/19 02/14/22 Maximo Mathis DO 909 [place] [address] Assigned Neuroscience Provider 02/12/20 08/09/21 Sherri Kingston PA [address] [place] [address] [place] [address] Assigned Surgical Provider 07/15/20 10/06/20 Pedro Winchester MD 6405 [place] [address] Assigned Heart and Vascular Provider 08/05/20 01/31/22 Shakira Chapa MD [place] IN [place] OF 06/29/2020 Assigned Surgical Provider 10/07/20 10/13/20 Jovanni Dempsey MD [address] [place] [address] Assigned Nephrology Provider 03/24/21 03/14/22 Jovanni Dempsey MD [address] [place] [address] Assigned Nephrology Provider 03/15/22 03/21/22 Len Hooks MD [address] [place] [address] 353 [place], [place] 527334 Assigned Nephrology Provider 03/22/22 12/26/22 Delvin Bob MD [address] [place] [address] 250 [place], [place] 8[address] Assigned PCP 04/26/22 12/12/22 Love Hernandez PA-C 6363 [facility] 500 [place] [address] Physician Roller Helper Urology 12/01/22 Conrado Evans MD [address] [place] [address] [address] [place] [address] Assigned Nephrology Provider 12/27/22 06/21/24 Love Hernandez PA-C 6363 [facility] 500 [place] [address] Assigned Surgical Provider 01/17/23 [place] [address] [place] [address] Assigned Gastroenterology Provider 07/23/23 Everardo Grant MD [address] [place] [address] Physician Infectious Diseases 09/23/23 Rey Billings MD 9 [place] [address] Assigned Infectious Disease Provider 10/23/23 Conrado Evans MD 717 [facility] [address] [place] [address] Nephrology 08/25/24 Delvin Lopez MD [address] [place] [address] 885425 Nephrology 08/25/24 Carissa Putnam RN [facility] 711 [place], [place] [phone] Specialty Director [facility] 10/10/24 10/10/24 documented as of this encounter
--- OUTSIDE RECORDS SUMMARY | 2024-10-13 08:54 | XMS_ITS | Encounter Summary ---
Author Organization [facility] Address [address] [place] [address] Care Team Providers Care Receiving Coordinator Name Role Phone Robert Marley MD Primary Care Provider Irish Kim RN Unavailable [phone] Chana Cheng MD Unavailable [phone] Anoop Garcia MD Unavailable Unavailable Barbara Carlson MD Unavailable Tayo Lacey MD Unavailable [phone] Basil Plummer MD Unavailable Charleen Lynne MD Unavailable [phone] Olimpia Williamson RN Unavailable [phone] Rin Dewitt RN Unavailable [phone] Rin Dewitt RN Unavailable [phone] Qian Rodriguez MD Unavailable [phone] Sherri Kingston Unavailable [phone] Olimpia Williamson RN Unavailable [phone] Olimpia Williamson RN Unavailable [phone] Christopher Quiroga MD Unavailable Claudia Yousif RN Unavailable Lance Simpson PA-C Unavailable [phone] Olimpia Williamson RN Unavailable [phone] Sherri Kingston Unavailable [phone] Delvin Bob MD Unavailable [phone] Charleen Lynne MD Unavailable [phone] ChapaShakira zelaya MD Unavailable Unav ailable Zoltan Eric DPM Unavailable [phone] Delvin Bob MD Unavailable Maximo Mathis DO Unavailable + Sherri Kingston Unavailable [phone] Pedro Winchester MD Unavailable [phone] ChapaShakira zelaya MD Unavailable Unav ailable Jovanni Dempsey MD Unavailable [phone] Jovanni Dempsey MD Unavailable [phone] Len Hooks MD Unavailable Delvin Bob MD Unavailable Love Hernandez-C Unavailable [phone] Conrado Evans MD Unavailable [phone] Love Hernandez-C Unavailable Gordy Nickerson MD Unavailable Everardo Grant MD Unavailable Rey Billings MD Unavailable [phone] Conrado Evans MD Unavailable [phone] Delvin Lopez MD Unavailable [phone] Carissa Putnam RN Unavailable [phone] Encounter Details Date Type Department Care Team (Late st Contact Info) Description 07/12/2014 External Order Results [facility] Clinic [address] [address] Social History Tobacco Use Types Packs/Day Years Used Date Smoking Tobacco: Former Smokeless Tobacco: Never Alcohol Use Standard Drinks/Week Comments No 0 (1 standard drink = 0.6 oz pur e alcohol) Comments No Sex and Gender Information Value Date Recorded Sex Assigned at Not on file Legal Sex Female 3:26 AM NURSE CLINICIAN Gender Identity Not on file Sexual Orientation Not on file Occupation Industry Job Start Date Job End Date Not on file Not on file Not on file Not on file documented as of this encounter Progress Notes * Lance Gaona RN - 07/12/2014 11:57 AM CDTQuick Note: See note re: K+ documented in this encounter Plan of Treatment Upcoming Encounters Date Type Department Care Team (Late st Contact Info) Description 10/25/2024 10:00 AM CDT Virtual Visit [facility] [place] [facility] [address] [place] [address] Edith Brito 10/26/2024 8:30 AM CDT Lab [facility] [address] [facility] 200 [place] [address] Conrado Evans MD 717 [facility] 353 [facility] 1932 [place], [place] [address] documented as of this encounter Procedures Procedure Name Priority Date/Time Associated Diagnosis Comments EXTERNAL LAB RESULTS Routine 07/12/2014 9:10 AM CDT documented in this encounter Results * (ABNORMAL) TXP External Lab Result (07/12/2014 9:10 AM CDT) ALT (External) 31 9 - 41 U/L LABDE SCAN AST (External) 30 12 - 35 U/L LABDE SCAN Alk Phosphatase (External) 81 40 - 150 U/L LABDE SCAN Bilirubin Total (External) 0.1 0.0 - 1.5 mg/dl LABDE SCAN Bilirubin Direct (External) 0.0 0.0 - 0.5 MG/DL LABDE SCAN Albumin (External) 3.7 3.3 - 5.0 G/DL LABDE SCAN Protein Total (External) 6.6 6.0 - 8.3 G/DL LABDE SCAN Calcium (External) 8.9 8.4 - 10.6 MG/DL LABDE SCAN Urea Nitrogen (External) 23 5 - 24 MG/DL LABDE SCAN Creatinine (External) 0.9 0.5 - 1.5 MG/DL LABDE SCAN Glucose (External) 88 60 - 115 mg/dL LABDE SCAN Sodium (External) 142 135 - 149 MmOL/L LABDE SCAN Potassium (External) 2.9(LL) 3.6 - 5.1 MMOL LABDE SCAN Chloride (External) 103 96 - 114 MMOL/L LABDE SCAN CO2 (External) 29 20 - 32 mmol/l LABDE SCAN Amylase (External) 59 18 - 89 U/L LABDE SCAN Phosphorus (External) 3.6 2.5 - 4.5 mg/dl LABDE SCAN Magnesium (External) 1.5 1.5 - 2.6 MG/DL LABDE SCAN Lipase Level (External) 79 23 - 300 U/L LABDE SCAN INR (External) 2.0(H) 0.88 - 1.12 LABDE SCAN WBC Count (External) 4.09(L) 5.00 - 10.00 K/UL LABDE SCAN RBC Count (External) 3.94 3.90 - 5.03 M/UL LABDE SCAN Hemoglobin (External) 10.9(L) 12.0 - 15.5 GM/DL LABDE SCAN Hematocrit (External) 35.8 34.9 - 44.5 % LABDE SCAN MCV (External) 91 82 - 98 FL LABDE SCAN MCH (External) 28 27 - 34 pg LABDE SCAN MCHC (External) 30(L) 32 - 36 GM/DL LABDE SCAN Platelet Count (External) 233 150 - 450 K/UL LABDE SCAN % Neutrophils (External) 70.2(H) 50.0 - 70.0 % LABDE SCAN % Lymphocytes (External) 12.7(L) 25.0 - 45.0 % LABDE SCAN % Monocytes (External) 11.0 0.00 - 11.0 % LABDE SCAN % Eosinophils (External) 5.6 0.0 - 7.0 % LABDE SCAN % Basophils (External) 0.5 0.0 - 3.0 % LABDE SCAN Absolute Neutrophils (External) 2.87 1.70 - 7.00 K/UL LABDE SCAN Absolute Lymphocytes (External) 0.52(L) 0.90 - 2.90 /UL LABDE SCAN Absolute Monocytes (External) 0.45 0.30 - 0.90 K/UL LABDE SCAN Absolute Eosinophils (External) 0.23 0.00 - 0.50 K/UL LABDE SCAN Absolute Basophils (External) 0.02 0.00 - 0.20 K/UL LABDE SCAN % Immature Granulocytes (External) 0.0 % LABDE SCAN Absolute Immature Granulocytes (External) 0.00 K/UL LABDE SCAN Hemoglobin A1C (External) 4.6(L) 4.8 - 5.9 % LABDE SCAN 07/12/2014 9:10 AM CDT Narrative BOBBY PFT - 07/12/2014 11:32 AM CDT Verified by Rylee Guzman on 07/12/2014. us Patient Reported LABORATORY Edited Result - Final BOBBY PFJovan LABDE SCAN documented in this encounter Visit [...] the IP on-call for review. Meena Torres, [facility] Infection Prevention 07/11/2019 at 3:56 PM 07/11/2019 07/11/2019 09/23/2019 10:03 AM CDT Rule Out COVID-19 07/24/2019 07/24/2019 07/25/2019 5:33 AM CDT 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, 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 09/23/2019 09/23/2019 09/0 03/2019 11:12 AM CDT Rule Out COVID-19 09/27/2019 09/27/2019 09/27/2019 3:20 PM CDT VRE-Standard Precautions 11/01/2019 11/01/2019 5:40 PM CDT 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, 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 Rule Out COVID-19 04/19/2020 04/19/2020 04/19/2020 1:56 PM NURSE CLINICIAN Rule Out COVID-19 04/19/2020 04/20/2020 04/20/2020 6:34 AM NURSE CLINICIAN Rule Out COVID-19 12/15/2020 12/15/2020 12/15/2020 4:33 PM CDT Rule Out C-difficile 01/06/2021 01/08/2021 021 11:43 AM NURSE CLINICIAN Rule Out C-difficile 07/10/2021 07/10/2021 022 5:56 PM CDT Rule Out C-difficile 07/16/2023 07/16/2023 024 9:21 PM CDT Rule Out Parvovirus 07/16/2023 07/16/2023 07/19/19 24 12:29 PM CDT Parvovirus 07/16/2023 07/16/2023 10/03/2024 4:22 PM CDT [id number] Comment:This patient was exposed to a person with a known CP-DETECTIVE SUPERVISOR and has the potential for having acquired this pathogen of concern. The [place] Department of Health ([facility]) and CDC recommend that we screen this patient to prevent the spread of these organisms within our healthcare facility. Infection Prevention has placed orders for collecting a rectal swab for CP-DETECTIVE SUPERVISOR to evaluate if this patient is now a carrier. This patient was identified to have a low risk exposure in which case Contact Precautions are not necessary unless the patient tests positive. Screening is voluntary. Please notify Infection Prevention if the patient declines testing. Additional information and resources can be found on the Infection Prevention MDRO Sharepoint page. 08/04/2023 08/04/2023 02/02/2024 11:39 PM NURSE CLINICIAN Rule Out Parvovirus 09/28/2023 09/28/2023 10/05/19 11:41 PM CDT documented as of this encounter Care Teams Receiving Coordinator Relationship Specialty Start Date End Date Robert Marley MD [address] [address] PCP - General Family Practice 12/08/10 Irish Kim RN Registered Nurse Transplant 05/26/14 09/20/14 Chana Cheng MD [facility] [address] [place] [address] Nephrology 05/26/14 11/12/15 Anoop Garcia MD [facility] [address] [place] [address] Transplant 05/26/14 02/02/18 Barbara Carlson MD [address] [place] [address] Referring Physician Nephrology 08/30/14 11/12/15 Tayo Lacey MD [address] [place] [phone] Cardiology 08/30/14 Basil Plummer MD [address] [place] [address] 591775 Neurology 05/09/15 04/23/16 Charleen Lynne MD [address] [place] [address] 276505 MD Oncology 06/14/15 12/19/18 Olimpia Williamson, RN Nurse Coordinator Oncology 06/14/15 04/23/16 Rin Dewitt RN Nurse Coordinator Neurology 07/24/15 04/23/16 Rin Dewitt RN Nurse Coordinator Neurology 10/25/15 10/12/17 Qian Rodriguez MD 717 [facility] 353 [place], [place] [address] Nephrology 11/13/15 06/16/16 Sherri Kingston PA [address] [facility] 394 [place], [place] 6[address] Physician Mine Technician Physician Mine Technician 03/20/16 Olimpia Williamson, RN Nurse Coordinator Oncology 06/26/16 06/26/16 Olimpia Williamson, RN Nurse Coordinator Oncology 06/26/16 06/16/18 Christopher Quiroga MD [facility] [address] [facility] 200 [place] [address] Oncology 07/02/16 Claudia Yousif RN Nurse Coordinator Gastroenterology 02/09/17 09/16/22 Lance Simpson PA-C [address] [place], [place] 4[address] Physician Mine Technician Physician Mine Technician 01/07/18 Olimpia Williamson, SONIA [facility] 05/06/18 12/19/18 Sherri Kingston PA [address] [place] [address] [place] [address] Physician Mine Technician Physician Mine Technician 12/21/18 Delvin Bob MD [address] [place] [address] Internal Medicine 11/11/19 Charleen Lynne MD [address] [place] [address] 079065 Assigned Cancer Care Provider 12/23/19 03/23/21 Shakira Chapa MD I[place]CTIVE IN [place] OF 06/29/2020 Assigned Surgical Provider 12/23/19 07/14/20 Zoltan Eric DPM [address] [facility] 300 [place] [address] Assigned Musculoskeletal Provider 12/23/19 07/26/21 Delvin Bob MD [address] [place] [address] 020635 Assigned PCP 12/08/19 02/14/22 Maximo Mathis DO [address] [place] [address] 679065 Assigned Neuroscience Provider 02/12/20 08/09/21 Sherri Kingston PA 909 [facility] [place] [address] Assigned Surgical Provider 07/15/20 10/06/20 Pedro Winchester MD [address] [place] [address] Assigned Heart and Vascular Provider 08/05/20 01/31/22 Shakira Chapa MD [place]IVE [place] OF 06/29/2020 Assigned Surgical Provider 10/07/20 10/13/20 Jovanni Dempsey MD 600 [place], [place] 597402 Assigned Nephrology Provider 03/24/21 03/14/22 Jovanni Dempsey MD [address] [place], [place] [phone] Assigned Nephrology Provider 03/15/22 03/21/22 Len Hooks MD 717 [facility] 353 [place], [place] 8[address]004 Assigned Nephrology Provider 03/22/22 12/26/22 Delvin Bob MD [address] [facility] 250 [place], [place] 380835 Assigned PCP 04/26/22 12/12/22 Love Hernandez PA-C [address] [facility] 500 [place] [address] Physician Mine Technician Urology 12/01/22 Conrado Evans MD [address] [place] [address] [address] [place] [address] Assigned Nephrology Provider 12/27/22 06/21/24 Love Hernandez PA-C [address] [address] Assigned Surgical Provider 01/17/23 [place] [address] [place] [address] Assigned Gastroenterology Provider 07/23/23 Everardo Grant MD [address] [place] [address] Physician Infectious Diseases 09/23/23 Rey Billings MD [address] [place] [address] Assigned Infectious Disease Provider 10/23/23 Conrado Evans MD [address] [place] [address] [place] [address] Nephrology 08/25/24 eDlvin Lopez MD [address] [place] [address] Nephrology 08/25/24 Carissa Putnam RN [facility] [address] [place] [address] [facility] 10/10/24 10/10/24 documented as of this encounter
--- OUTSIDE RECORDS SUMMARY | 2024-10-13 08:54 | XMS_ITS | Encounter Summary ---
Author Organization [facility] Address [address] [place] [address] Care Team Providers Care School Bus Attendant Name Role Phone Robert Marley MD Primary Care Provider Irish Kim RN Unavailable [phone] Chana Cheng MD Unavailable [phone] Anoop Garcia MD Unavailable Unavailable Barbara Carlson MD Unavailable Tayo Lacey MD Unavailable [phone] Basil Plummer MD Unavailable Charleen Lynne MD Unavailable +[phone] Olimpia Williamson RN Unavailable [phone] Rin Dewitt RN Unavailable [phone] Rin Dewitt RN Unavailable [phone] Qian Rodriguez MD Unavailable [phone] Sherri Kingston Unavailable [phone] Olimpia Williamson RN Unavailable [phone] Olimpia Williamson RN Unavailable [phone] Christopher Quiroga MD Unavailable Claudia Yousif RN Unavailable Lance Simpson PA-C Unavailable +[phone] Olimpia Williamson RN Unavailable [phone] Sherri Kingston Unavailable +[phone] Delvin Bob MD Unavailable +[phone] Charleen Lynne MD Unavailable [phone] ChapaShakira zelaya MD Unavailable Unav ailable Zoltan Eric DPM Unavailable +[phone] Delvin Bob MD Unavailable [phone] Maximo Mathis DO Unavailable + Sherri Kingston Unavailable +[phone] Pedro Winchester MD Unavailable [phone] ChapaShakira zelaya MD Unavailable Unav ailable Jovanni Dempsey MD Unavailable +[phone] Jovanni Dempsey MD Unavailable +[phone] Len Hooks MD Unavailable Delvin Bob MD Unavailable Love Hernandez-C Unavailable [phone] Conrado Evans MD Unavailable [phone] Love Hernandez-C Unavailable Gordy Nickerson MD Unavailable Everardo Grant MD Unavailable Rey Billings MD Unavailable +[phone] Conrado Evans MD Unavailable Delvin Lopez MD Unavailable [phone] Carissa Putnam RN Unavailable [phone] Encounter Details Date Type Department Care Team (Late st Contact Info) Description 06/22/2014 External Order Results [facility] [address] [address] Social History Tobacco Use Types Packs/Day Years Used Date Smoking Tobacco: Former Smokeless Tobacco: Never Alcohol Use Standard Drinks/Week Comments No 0 (1 standard drink = 0.6 oz pur e alcohol) Comments No Sex and Gender Information Value Date Recorded Sex Assigned at Not on file Legal Sex Female 3:26 AM FINE CRAFT ARTIST Gender Identity Not on file Sexual Orientation Not on file Occupation Industry Job Start Date Job End Date Not on file Not on file Not on file Not on file documented as of this encounter Plan of Treatment Upcoming Encounters Date Type Department Care Team (Late st Contact Info) Description 10/25/2024 10:00 AM CDT Virtual Visit [facility] [address] [place] [address] Edith Brito 10/26/2024 8:30 AM CDT Lab [facility] Cancer [facility] Medical Ctr [facility] [address] [facility] 200 [place] [address] Conrado Evans MD 717 [facility] 353 [facility] 1932 [place] [address] documented as of this encounter Visit Diagnoses [...] chart. Infection Prevention will review patient charts Tico- Thursday. It is not necessary to contact the IP on-call for review. Meena Torres, [facility] Infection Prevention 07/11/2019 at 3:56 PM 07/11/2019 07/11/2019 09/23/2019 10:03 AM CDT Rule Out COVID-19 07/24/2019 07/24/2019 07/25/2019 5:33 AM CDT 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, 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 09/23/2019 09/23/2019 09/03/2019 11:12 AM CDT Rule Out COVID-19 09/27/2019 09/27/2019 09/27/2019 3:20 PM CDT VRE-Standard Precautions 11/01/2019 11/01/2019 5:40 PM CDT 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, 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 Rule Out COVID-19 04/19/2020 04/19/2020 04/19/2020 1:56 PM FINE CRAFT ARTIST Rule Out COVID-19 04/19/2020 04/20/2020 04/20/2020 6:34 AM FINE CRAFT ARTIST Rule Out COVID-19 12/15/2020 12/15/2020 12/15/2020 4:33 PM CDT Rule Out C-difficile 01/06/2021 01/08/2021 021 11:43 AM FINE CRAFT ARTIST Rule Out C-difficile 07/10/2021 07/10/2021 022 5:56 PM CDT Rule Out C-difficile 07/16/2023 07/16/2023 024 9:21 PM CDT Rule Out Parvovirus 07/16/2023 07/16/2023 07/19/19 24 12:29 PM CDT Parvovirus 07/16/2023 07/16/2023 10/03/2024 4:22 PM CDT [id number] Comment:This patient was exposed to a person with a known CP-ORTHOTICS PROSTHETICS ASSISTANT and has the potential for having acquired this pathogen of concern. The [place] Department of Health ([facility]) and CDC recommend that we screen this patient to prevent the spread of these organisms within our healthcare facility. Infection Prevention has placed orders for collecting a rectal swab for CP-ORTHOTICS PROSTHETICS ASSISTANT to evaluate if this patient is now a carrier. This patient was identified to have a low risk exposure in which case Contact Precautions are not necessary unless the patient tests positive. Screening is voluntary. Please notify Infection Prevention if the patient declines testing. Additional information and resources can be found on the Infection Prevention MDRO Sharepoint page. 08/04/2023 08/04/2023 02/02/2024 11:39 PM FINE CRAFT ARTIST Rule Out Parvovirus 09/28/2023 09/28/2023 10/05/19 11:41 PM CDT documented as of this encounter Care Teams School Bus Attendant Relationship Specialty Start Date End Date Robert Marley MD [facility] [address] [place] [address] PCP - General Family Practice 12/08/10 Irish Kim RN Registered Nurse Transplant 05/26/14 09/20/14 Chana Cheng MD [facility] [address] [place] [address] Nephrology 05/26/14 11/12/15 Anoop Garcia MD [facility] [address] [place] [address] Transplant 05/26/14 02/02/18 Barbara Carlson MD [address] [place] [address] Referring Physician Nephrology 08/30/14 11/12/15 Tayo Lacey MD [address] [place] [address] Cardiology 08/30/14 Basil Plummer MD [address] [place] [address] Neurology 05/09/15 04/23/16 Charleen Lynne MD [address] [place] [address] MD Oncology 06/14/15 12/19/18 Olimpia Williamson, RN Nurse Coordinator Oncology 06/14/15 04/23/16 Rin Dewitt RN Nurse Coordinator Neurology 07/24/15 04/23/16 Rin Dewitt RN Nurse Coordinator Neurology 10/25/15 10/12/17 Qian Rodriguez MD 717 [facility] 353 [place] [address] Nephrology 11/13/15 06/16/16 Sherri Kingston PA 420 [facility] 394 [place], [place] 312[address] Physician Geospatial Systems Integrator Physician Geospatial Systems Integrator 03/20/16 Olimpia Williamson, RN Nurse Coordinator Oncology 06/26/16 06/26/16 Olimpia Williamson, RN Nurse Coordinator Oncology 06/26/16 06/16/18 Christopher Quiroga MD [facility] [address] [place] [address] Oncology 07/02/16 Claudia Yousif RN Nurse Coordinator Gastroenterology 02/09/17 09/16/22 Lance Simpson PA-C [address] [place] [address]90855 Physician Geospatial Systems Integrator Physician Geospatial Systems Integrator 01/07/18 Olimpia Williamson, SONIA Specialty Curriculum Manager Hematology & Oncology 05/06/18 12/19/18 Sherri Kingston PA [address] [place] [address] Urology [place], [place] [address] Physician Geospatial Systems Integrator Physician Geospatial Systems Integrator 12/21/18 Delvin Bob MD [address] [place] [address] 962305 Internal Medicine 11/11/19 Charleen Lynne MD [address] [place] [address] 144595 Assigned Cancer Care Provider 12/23/19 03/23/21 Shakira Chapa MD I[place]CTIVE IN [place] OF 06/29/2020 Assigned Surgical Provider 12/23/19 07/14/20 Zoltan Eric DPM [address] [facility] [address] [place] [address] Assigned Musculoskeletal Provider 12/23/19 07/26/21 Delvin Bob MD [address] [place] [address] 369535 Assigned PCP 12/08/19 02/14/22 Maximo Mathis DO [address] [place] [address] Assigned Neuroscience Provider 02/12/20 08/09/21 Sherri Kingston PA 909 [facility] [place] [address] Assigned Surgical Provider 07/15/20 10/06/20 Pedro Winchester MD [address] [place] [address] Assigned Heart and Vascular Provider 08/05/20 01/31/22 Shakira Chapa MD [place]CTIVE IN [place] OF 06/29/2020 Assigned Surgical Provider 10/07/20 10/13/20 Jovanni Dempsey MD 600 [place] [address] Assigned Nephrology Provider 03/24/21 03/14/22 Jovanni Dempsey MD 600 [place], [place] 244982 Assigned Nephrology Provider 03/15/22 03/21/22 Len Hooks MD 717 [facility] 353 [place] [address] Assigned Nephrology Provider 03/22/22 12/26/22 Delvin Bob MD 420 [facility] 250 [place], [place] 177455 Assigned PCP 04/26/22 12/12/22 Love Hernandez PA-C [address] [facility] 500 [place] [address] Physician Geospatial Systems Integrator Urology 12/01/22 Conrado Evans MD [address] [place] [address] 1931 [place] [address] Assigned Nephrology Provider 12/27/22 06/21/24 Love Hernandez PA-C 6363 [facility] 500 [place] [address] Assigned Surgical Provider 01/17/23 [place] [address] [place] [address] Assigned Gastroenterology Provider 07/23/23 Everardo Grant MD [address] [place] [address] Physician Infectious Diseases 09/23/23 Rey Billings MD [address] [place] [address] Assigned Infectious Disease Provider 10/23/23 Conrado Evans MD [address] [place] [address] Nephrology 08/25/24 Delvin Lopez MD [address] [place] [address] 920135 Nephrology 08/25/24 Carissa Putnam RN [facility] [address] [place] [address] Specialty Curriculum Manager Pharmacy 10/10/24 10/10/24 documented as of this encounter
--- OUTSIDE RECORDS SUMMARY | 2024-10-13 08:54 | XMS_ITS | Encounter Summary ---
Author Organization [facility] Address [address] [place] [address] Care Team Providers Care Tiltrotor Crew Chief Name Role Phone Robert Marley MD Primary Care Provider Irish Kim RN Unavailable [phone] Chana Cheng MD Unavailable [phone] Anoop Garcia MD Unavailable Unavailable Barbara Carlson MD Unavailable Tayo Lacey MD Unavailable [phone] Basil Plummer MD Unavailable Charleen Lynne MD Unavailable [phone] Olimpia Williamson RN Unavailable [phone] Rin Dewitt RN Unavailable [phone] Rin Dewitt RN Unavailable [phone] Qian Rodriguez MD Unavailable [phone] Sherri Kingston Unavailable [phone] Olimpia Williamson RN Unavailable [phone] Olimpia Williamson RN Unavailable [phone] Christopher Quiroga MD Unavailable Claudia Yousif RN Unavailable Lance Simpson PA-C Unavailable +[phone] Olimpia Williamson RN Unavailable Sherri Kingston Unavailable +[phone] Delvin Bob MD Unavailable +[phone] Charleen Lynne MD Unavailable [phone] ChapaShakira zelaya MD Unavailable Unav ailable Zoltan Eric DPM Unavailable +[phone] Delvin Bob MD Unavailable Maximo Mathis DO Unavailable + Sherri Kingston Unavailable +[phone] Pedro Winchester MD Unavailable [phone] ChapaShakira zelaya MD Unavailable Unav ailable Jovanni Dempsey MD Unavailable [phone] Jovanni Dempsey MD Unavailable [phone] Len Hooks MD Unavailable Delvin Bob MD Unavailable Love Hernandez-C Unavailable [phone] Conrado Evans MD Unavailable [phone] Love Hernandez-C Unavailable Gordy Nickerson MD Unavailable [phone] Everardo Grant MD Unavailable Rey Billings MD Unavailable [phone] Conrado Evans MD Unavailable Delvin Lopez MD Unavailable [phone] Carissa Putnam RN Unavailable [phone] Encounter Details Date Type Department Care Team (Late st Contact Info) Description 06/15/2014 External Order Results [facility] Clinic [address] [address] Social History Tobacco Use Types Packs/Day Years Used Date Smoking Tobacco: Former Smokeless Tobacco: Never Alcohol Use Standard Drinks/Week Comments No 0 (1 standard drink = 0.6 oz pur e alcohol) Comments No Sex and Gender Information Value Date Recorded Sex Assigned at Not on file 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 documented in this encounter Plan of Treatment Upcoming Encounters Date Type Department Care Team (Late st Contact Info) Description 10/25/2024 10:00 AM CDT Virtual Visit [facility] [address] [place] [address] Edith Brito 10/26/2024 8:30 AM CDT Lab [facility] Cancer Center [facility] Medical Ctr [facility] [address] [facility] 200 [place] [address] Conrado Evans MD 717 [facility] 353 [facility] 1932 [place], [place] 40[address] documented as of this encounter Procedures Procedure Name Priority Date/Time Associated Diagnosis Comments EXTERNAL LAB RESULTS Routine 06/14/2014 12:25 PM CDT EXTERNAL LAB RESULTS Routine 06/14/2014 9:45 AM CDT documented in this encounter Results * (ABNORMAL) TXP External Lab Result (06/14/2014 12:25 PM CDT) Potassium (External) 2.9(LL) 3.6 - 5.1 MMOL/L LABDE SCAN 06/14/2014 12:2 5 PM CDT Narrative [facility] - 06/15/2014 9:38 AM CDT Verified by Deisi Justice on 06/15/2014. us Patient Reported LABORATORY Edited Result - Final [facility] LABDE SCAN * (ABNORMAL) TXP External Lab Result (06/14/2014 9:45 AM CDT) INR (External) 2.1(H) 0.88 - 1.12 LABDE SCAN 06/14/2014 9:45 AM CDT Narrative [facility] - 06/15/2014 9:38 AM CDT Verified by Deisi Justice on 06/15/2014. us Patient Reported LABORATORY Edited [...] the IP on-call for review. Meena Torres, [facility] Infection Prevention 07/11/2019 at 3:56 PM [...] Out COVID-19 04/19/2020 04/19/2020 04/19/2020 1:56 PM ON SITE WASTEWATER SYSTEMS TECHNICIAN Rule Out COVID-19 04/19/2020 04/20/2020 04/20/2020 6:34 AM ON SITE WASTEWATER SYSTEMS TECHNICIAN Rule Out COVID-19 12/15/2020 12/15/2020 12/15/2020 4:33 PM CDT Rule Out C-difficile 01/06/2021 01/08/2021 021 11:43 AM ON SITE WASTEWATER SYSTEMS TECHNICIAN Rule Out C-difficile 07/10/2021 07/10/2021 022 5:56 PM CDT Rule Out C-difficile 07/16/2023 07/16/2023 024 9:21 PM CDT Rule Out Parvovirus 07/16/2023 07/16/2023 07/19/19 24 12:29 PM CDT Parvovirus 07/16/2023 07/16/2023 10/03/2024 4:22 PM CDT [id number] Comment:This patient was exposed to a person with a known CP-STAFF ASSISTANT and has the potential for having acquired this pathogen of concern. The [place] Department of Health ([facility]) and CDC recommend that we screen this patient to prevent the spread of these organisms within our healthcare facility. Infection Prevention has placed orders for collecting a rectal swab for CP-STAFF ASSISTANT to evaluate if this patient is [...] Sharepoint page. 08/04/2023 08/04/2023 02/02/2024 11:39 PM ON SITE WASTEWATER SYSTEMS TECHNICIAN Rule Out Parvovirus 09/28/2023 09/28/2023 10/05/19 11:41 PM CDT documented as of this encounter Care Teams Tiltrotor Crew Chief Relationship Specialty Start Date End Date Robert Marley MD [facility] [id number] [place] [address] PCP - General Family Practice 12/08/10 Irish Kim, RN Registered Nurse Transplant 05/26/14 09/20/14 Chana Cheng MD [facility] [address] [place] [address] Nephrology 05/26/14 11/12/15 Anoop Garcia MD [facility] [address] [place] [address] Transplant 05/26/14 02/02/18 Barbara Carlson MD [address] [place] [address] Referring Physician Nephrology 08/30/14 11/12/15 Tayo Lacey MD [address] [place] [address] Cardiology 08/30/14 Basil Plummer MD [address] [place] [address] Neurology 05/09/15 04/23/16 Charleen Lynne MD 909 [place] [address] MD Oncology 06/14/15 12/19/18 Olimpia Williamson, RN Nurse Coordinator Oncology 06/14/15 04/23/16 Rin Dewitt RN Nurse Coordinator Neurology 07/24/15 04/23/16 Rin Dewitt RN Nurse Coordinator Neurology 10/25/15 10/12/17 Qian Rodriguez MD 717 [facility] 353 [place], [place] 5639[address] Nephrology 11/13/15 06/16/16 Sherri Kingston PA 420 [facility] 394 [place], [place] [address] Physician Dispatch Lead Physician Dispatch Lead 03/20/16 Olimpia Williamson, RN Nurse Coordinator Oncology 06/26/16 06/26/16 Olimpia Williamson, RN Nurse Coordinator Oncology 06/26/16 06/16/18 Christopher Quiroga MD [facility] 200 [place] [address] MD Oncology 07/02/16 Claudia Yousif, RN Nurse Coordinator Gastroenterology 02/09/17 09/16/22 Lance Simpson PA-C [address] [place] [address] [id number] Physician Dispatch Lead Physician Dispatch Lead 01/07/18 Olimpia Williamson, RN Specialty Clerical Administrator Hematology & Oncology 05/06/18 12/19/18 Sherri Kingston PA [address] [place] [address] [place] [address] Physician Dispatch Lead Physician Dispatch Lead 12/21/18 Delvin Bob MD [address] [place] [address] Internal Medicine 11/11/19 Charleen Lynne MD [address] [place] [address] 787475 Assigned Cancer Care Provider 12/23/19 03/23/21 Shakira Chapa MD I[place]CTIVE IN [place] OF 06/29/2020 Assigned Surgical Provider 12/23/19 07/14/20 Zoltan Eric DPM [address] [facility] [address] [place] [address] Assigned Musculoskeletal Provider 12/23/19 07/26/21 Delvin Bob MD [address] [place] [address] Assigned PCP 12/08/19 02/14/22 Maximo Mathis DO [address] [place] [address] Assigned Neuroscience Provider 02/12/20 08/09/21 Sherri Kingston PA 909 [facility] [place] [address] Assigned Surgical Provider 07/15/20 10/06/20 Pedro Winchester MD 6405 [facility] [place] [address] Assigned Heart and Vascular Provider 08/05/20 01/31/22 Shakira Chapa MD [place]CTIVE IN [place] OF 06/29/2020 Assigned Surgical Provider 10/07/20 10/13/20 Jovanni Dempsey MD 600 [place], [place] 146122 Assigned Nephrology Provider 03/24/21 03/14/22 Jovanni Dempsey MD [address] [place] [address] 046662 Assigned Nephrology Provider 03/15/22 03/21/22 Len Hooks MD [address] [place] [address] 353 [place] [address] Assigned Nephrology Provider 03/22/22 12/26/22 Delvin Bob MD [address] [place] [address] 250 [place] [address] Assigned PCP 04/26/22 12/12/22 Love Hernandez PA-C 6363 [facility] 500 [place] [address] Physician Dispatch Lead Urology 12/01/22 Conrado Evans MD [address] [place] [address] Assigned Nephrology Provider 12/27/22 06/21/24 Love Hernandez PA-C 6363 [facility] 500 [place] [address] Assigned Surgical Provider 01/17/23 [place] [address], [place] [address] Assigned Gastroenterology Provider 07/23/23 Everardo Grant MD [address] [place] [address] Physician Infectious Diseases 09/23/23 Rey Billings MD [address] [place] [address] Assigned Infectious Disease Provider 10/23/23 Conrado Evans MD [address] [place] [address] Nephrology 08/25/24 Delvin Lopez MD [address] [place] [address] Nephrology 08/25/24 Carissa Putnam, RN [facility] [address] [place] [address] Specialty Clerical Administrator Pharmacy 10/10/24 10/10/24 documented as of this encounter
--- OUTSIDE RECORDS SUMMARY | 2024-10-13 08:54 | XMS_ITS | Encounter Summary ---
Author Organization [facility] Address [address] [place] [address] Care Team Providers Care Traffic Control Specialist Name Role Phone Robert Marley MD Primary Care Provider Irish Kim RN Unavailable [phone] Chana Cheng MD Unavailable [phone] Anoop Garcia MD Unavailable Unavailable Barbara Carlson MD Unavailable Tayo Lacey MD Unavailable [phone] Basil Plummer MD Unavailable Charleen Lynne MD Unavailable [phone] Olimpia Williamson RN Unavailable [phone] Rin Dewitt RN Unavailable [phone] Rin Dewitt RN Unavailable [phone] Qian Rodriguez MD Unavailable [phone] Sherri Kingston Unavailable [phone] Olimpia Williamson RN Unavailable [phone] Olimpia Williamson RN Unavailable [phone] Christopher Quiroga MD Unavailable Claudia Yousif RN Unavailable Lance Simpson PA-C Unavailable +[phone] Olimpia Williamson RN Unavailable [phone] Sherri Kingston Unavailable +[phone] Delvin Bob MD Unavailable +[phone] Charleen Lynne MD Unavailable [phone] ChapaShakira zelaya MD Unavailable Unav ailable Zoltan Eric DPM Unavailable +[phone] Delvin Bob MD Unavailable Maximo Mathis DO Unavailable + Sherri Kingston Unavailable +[phone] Pedro Winchester MD Unavailable +[phone] ChapaShakira zelaya MD Unavailable Unav ailable Jovanni Dempsey MD Unavailable +[phone] Jovanni Dempsey MD Unavailable +[phone] Len Hooks MD Unavailable Delvin Bob MD Unavailable Love Hernandez-C Unavailable +[phone] Conrado Evans MD Unavailable +[phone] Love Hernandez-C Unavailable Gordy Nickerson MD Unavailable [phone] Everardo Grant MD Unavailable Rey Billings MD Unavailable [phone] Conrado Evans MD Unavailable Delvin Lopez MD Unavailable [phone] Carissa Putnam RN Unavailable [phone] Encounter Details Date Type Department Care Team (Late st Contact Info) Description 08/03/2014 External Order Results [facility] [address] [address] Social History Tobacco Use Types Packs/Day Years Used Date Smoking Tobacco: Former Smokeless Tobacco: Never Alcohol Use Standard Drinks/Week Comments No 0 (1 standard drink = 0.6 oz pur e alcohol) Comments No Sex and Gender Information Value Date Recorded Sex Assigned at Not on file 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 200 [place] [phone] Conrado Evans MD 714 [facility] 353 [facility] 1932 [place], [place] [address] documented as of this encounter Procedures Procedure Name Priority Date/Time Associated Diagnosis Comments EXTERNAL LAB RESULTS Routine 08/02/2014 8:50 AM CDT documented in this encounter Results * TXP External Lab Result (08/02/2014 8:50 AM CDT) Calcium (External) 8.9 LABDE SCAN Urea Nitrogen (External) 22 LABDE SCAN Creatinine (External) 0.8 LABDE SCAN Glucose (External) 125 LABDE SCAN Sodium (External) 143 135 - 149 MMOL/L LABDE SCAN Potassium (External) 3.6 LABDE SCAN Chloride (External) 106 LABDE SCAN CO2 (External) 26 LABDE SCAN Amylase (External) 59 18 - 89 U/L LABDE SCAN Lipase Level (External) 83 23 - 300 U/L LABDE SCAN 08/02/2014 8:50 AM CDT Narrative BOBBY PFT - 08/03/2014 6:28 AM CDT Verified by Velvet Freeman on 08/03/2014. us Patient Reported LABORATORY Edited Result - [...] contact the IP on-call for review. Meena Torres [facility] Infection Prevention 07/11/2019 at 3:56 PM 07/11/2019 07/11/2019 09/23/2019 10:03 AM CDT Rule Out COVID-19 07/24/2019 07/24/2019 07/25/2019 5:33 AM CDT 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, 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 09/23/2019 09/23/2019 09/03/2019 11:12 AM CDT Rule Out COVID-19 09/27/2019 09/27/2019 09/27/2019 3:20 PM CDT VRE-Standard Precautions 11/01/2019 11/01/2019 5:40 PM CDT 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, 15 urine 12/26/2019 12/26/2019 Rule Out COVID-19 04/19/2020 04/19/2020 04/19/2020 1:56 PM SOLAR SALES ASSESSOR Rule Out COVID-19 04/19/2020 04/20/2020 04/20/2020 6:34 AM SOLAR SALES ASSESSOR Rule Out COVID-19 12/15/2020 12/15/2020 12/15/2020 4:33 PM CDT Rule Out C-difficile 01/06/2021 01/08/2021 021 11:43 AM SOLAR SALES ASSESSOR Rule Out C-difficile 07/10/2021 07/10/2021 022 5:56 PM CDT Rule Out C-difficile 07/16/2023 07/16/2023 024 9:21 PM CDT Rule Out Parvovirus 07/16/2023 07/16/2023 07/19/19 24 12:29 PM CDT Parvovirus 07/16/2023 07/16/2023 10/03/2024 4:22 PM CDT [id number] Comment:This patient was exposed to a person with a known CP-CARTRIDGE ASSEMBLING MACHINE ADJUSTER and has the potential for having acquired this pathogen of concern. The [place] Department of Health ([facility]) and CDC recommend that we screen this patient to prevent the spread of these organisms within our healthcare facility. Infection Prevention has placed orders for collecting a rectal swab for CP-CARTRIDGE ASSEMBLING MACHINE ADJUSTER to evaluate if this patient is now a carrier. This patient was identified to have a low risk exposure in which case Contact Precautions are not necessary unless the patient tests positive. Screening is voluntary. Please notify Infection Prevention if the patient declines testing. Additional information and resources can be found on the Infection Prevention MDRO Sharepoint page. 08/04/2023 08/04/2023 02/02/2024 11:39 PM SOLAR SALES ASSESSOR Rule Out Parvovirus 09/28/2023 09/28/2023 10/05/19 24 11:41 PM CDT documented as of this encounter Care Teams Traffic Control Specialist Relationship Specialty Start Date End Date Robert Marley MD [facility] [address] [place] [address] PCP - General Family Practice 12/08/10 Irish Kim RN Registered Nurse Transplant 05/26/14 09/20/14 Chana Cheng MD [facility] [address] [place] [address] Nephrology 05/26/14 11/12/15 Anoop Garcia MD [facility] [address] [place] [address] MD Transplant 05/26/14 02/02/18 Barbara Carlson MD [address] [place] [address] Referring Physician Nephrology 08/30/14 11/12/15 Tayo Lacey MD [address] [place] [address] Cardiology 08/30/14 Basil Plummer MD 9 [place], [place] [address] Neurology 05/09/15 04/23/16 Charleen Lynne MD 9 [place], [place] [address] MD Oncology 06/14/15 12/19/18 Olimpia Williamson, SONIA Nurse Coordinator Oncology 06/14/15 04/23/16 Rin Dewitt RN Nurse Coordinator Neurology 07/24/15 04/23/16 Rin Dewitt RN Nurse Coordinator Neurology 10/25/15 10/12/17 Qian Rodriguez MD 717 [facility] [place] 353 [place] [address] Nephrology 11/13/15 06/16/16 Sherri Kingston PA 420 [facility] 394 [place], [place] [address] Physician Dance Hall Host/Hostess Physician Dance Hall Host/Hostess 03/20/16 Olimpia Williamson, RN Nurse Coordinator Oncology 06/26/16 06/26/16 Olimpia Williamson, RN Nurse Coordinator Oncology 06/26/16 06/16/18 Christopher Quiroga MD [facility] 5 [facility] 200 [place], [place] [address] MD Oncology 07/02/16 Claudia Yousif RN Nurse Coordinator Gastroenterology 02/09/17 09/16/22 Lance Simpson PA-C 9 [place], [place] [address] Physician Dance Hall Host/Hostess Physician Dance Hall Host/Hostess 01/07/18 Olimpia Williamson, RN Specialty River Rafting Guide Hematology & Oncology 05/06/18 12/19/18 Sherri Kingston PA [address] [facility] Urology [place], [place] [phone] Physician Dance Hall Host/Hostess Physician Dance Hall Host/Hostess 12/21/18 Delvin Bob MD 420 [facility] 250 [place], [place] [address] Internal Medicine 11/11/19 Charleen Lynne MD 909 [place] [address] Assigned Cancer Care Provider 12/23/19 03/23/21 Shakira Chapa MD [place] 06/29/2020 Assigned Surgical Provider 12/23/19 07/14/20 Zoltan Eric DPM [address] [facility] [address] [place] [address] Assigned Musculoskeletal Provider 12/23/19 07/26/21 Delvin Bob MD [address] [place] [address] 250 [place] [address] Assigned PCP 12/08/19 02/14/22 Maximo Mathis DO 909 [place], [place] [address] Assigned Neuroscience Provider 02/12/20 08/09/21 Sherri Kingston PA [address] [facility] [place] [address] Assigned Surgical Provider 07/15/20 10/06/20 Pedro Winchester MD [address] [place] [address] Assigned Heart and Vascular Provider 08/05/20 01/31/22 Shakira Chapa MD [place] 06/29/2020 Assigned Surgical Provider 10/07/20 10/13/20 Jovanni Dempsey MD 600 [place] [address] Assigned Nephrology Provider 03/24/21 03/14/22 Jovanni Dempsey MD 600 [place] [address] Assigned Nephrology Provider 03/15/22 03/21/22 Len Hooks MD [address] [facility] [address] [facility] [place] [address] [place] [address] Assigned Nephrology Provider 03/22/22 12/26/22 Delvin Bob MD [address] [place] [facility] 250 [place], [place] [address] Assigned PCP 04/26/22 12/12/22 Love Hernandez PA-C [address] [place] [place], [place] [address] Physician Dance Hall Host/Hostess Urology 12/01/22 Conrado Evans MD [address] [place] [address] [facility] [address] [place] [address] Assigned Nephrology Provider 12/27/22 06/21/24 Love Hernandez PA-C [address] [place] [address] [place], [place] [address] Assigned Surgical Provider 01/17/23 [place] [address] [address] [address] Assigned Gastroenterology Provider 07/23/23 Everardo Grant MD 9 [place], [place] [address] Physician Infectious Diseases 09/23/23 Rey Billings MD [address] [place] [address]5085 Assigned Infectious Disease Provider 10/23/23 Conrado Evans MD [address] [place] [address] 353 [facility] [address] [place], [place] [address] Nephrology 08/25/24 Delvin Lopez MD [address] [place] [address] Nephrology 08/25/24 Carissa Putnam, RN [facility] [address] [place], [place] [id number] Specialty River Rafting Guide Pharmacy 10/10/24 10/10/24 documented as of this encounter
--- OUTSIDE RECORDS SUMMARY | 2024-10-13 08:54 | XMS_ITS | Encounter Summary ---
Author Organization [facility] Address [address] [place] [address] Care Team Providers Care Automotive Fleet Supervisor Name Role Phone Robert Marley MD Primary Care Provider Irish Kim RN Unavailable [phone] Chana Cheng MD Unavailable [phone] Anoop Garcia MD Unavailable Unavailable Barbara Carlson MD Unavailable Tayo Lacey MD Unavailable [phone] Basil Plummer MD Unavailable Charleen Lynne MD Unavailable [phone] Olimpia Williamson RN Unavailable [phone] Rin Dewitt RN Unavailable [phone] Rin Dewitt RN Unavailable [phone] Qian Rodriguez MD Unavailable [phone] Sherri Kingston Unavailable [phone] Olimpia Williamson RN Unavailable [phone] Olimpia Williamson RN Unavailable [phone] Christopher Quiroga MD Unavailable Claudia Yousif RN Unavailable Lance Simpson PA-C Unavailable [phone] Olimpia Williamson RN Unavailable [phone] Sherri Kingston Unavailable [phone] Delvin Bob MD Unavailable [phone] Charleen Lynne MD Unavailable [phone] ChapaShakira zelaya MD Unavailable Unav ailable Zoltan Eric DPM Unavailable [phone] Delvin Bob MD Unavailable Maximo Mathis DO Unavailable + Sherri Kingston Unavailable [phone] Pedro Winchester MD Unavailable [phone] ChapaShakira zelaya MD Unavailable Unav ailable Jovanni Dempsey MD Unavailable [phone] Jovanni Dempsey MD Unavailable [phone] Len Hooks MD Unavailable Delvin Bob MD Unavailable Love Hernandez-C Unavailable [phone] Conrado Evans MD Unavailable [phone] Love Hernandez-C Unavailable Gordy Nickerson MD Unavailable [phone] Everardo Grant MD Unavailable Rey Billings MD Unavailable [phone] Conrado Evans MD Unavailable Delvin Lopez MD Unavailable [phone] Carissa Putnam RN Unavailable [phone] Encounter Details Date Type Department Care Team (Late st Contact Info) Description 06/22/2014 External Order Results [facility] Clinic [address] [address] Social History Tobacco Use Types Packs/Day Years Used Date Smoking Tobacco: Former Smokeless Tobacco: Never Alcohol Use Standard Drinks/Week Comments No 0 (1 standard drink = 0.6 oz pur e alcohol) Comments No Sex and Gender Information Value Date Recorded Sex Assigned at Not on file Legal Sex Female 3:26 AM LEGAL COUNSEL Gender Identity Not on file Sexual Orientation Not on file Occupation Industry Job Start Date Job End Date Not on file Not on file Not on file Not on file documented as of this encounter Plan of Treatment Upcoming Encounters Date Type Department Care Team (Late st Contact Info) Description 10/25/2024 10:00 AM CDT Virtual Visit [facility] [address] [place] [address] Edith Brito 10/26/2024 8:[address] [facility] [address] [facility] 200 [place] [address] Conrado Evans MD 717 [facility] 353 [facility] 1932 [place], [place] [address] documented as of this encounter Procedures Procedure Name Priority Date/Time Associated Diagnosis Comments EXTERNAL LAB RESULTS Routine 06/21/2014 8:45 AM CDT documented in this encounter Results * (ABNORMAL) TXP External Lab Result (06/21/2014 8:45 AM CDT) INR (External) 2.8(H) 0.88 - 1.12 LABDE SCAN Glucose (External) 79 60 - 115 mg/dL LABDE SCAN Urea Nitrogen (External) 26(H) 5 - 24 MG/DL LABDE SCAN Creatinine (External) 0.8 0.5 - 1.5 MG/DL LABDE SCAN Sodium (External) 147 135 - 149 MMOL/L LABDE SCAN Potassium (External) 4.1 3.6 - 5.1 LABDE SCAN Chloride (External) 110 96 - 114 LABDE SCAN CO2 (External) 26 12.0 - 32 LABDE SCAN Calcium (External) 9.4 8.4 - 10 MG/DL LABDE SCAN Phosphorus (External) 3.5 2.5 - 4.5 MG/DL LABDE SCAN Magnesium (External) 1.7 1.5 - 2.6 MG/DL LABDE SCAN Amylase (External) 59 18 - 89 U/L LABDE SCAN Lipase Level (External) 125 23 - 300 U/L LABDE SCAN Everolimus (External) 4.3 NG/ML LABDE SCAN Mycophenolic Acid (External) <0.5(L) 1.0 - 3.5 ug/mL LABDE SCAN MPA Glucuronide (External) <5.0(L) 35.0 - 100.0 ug/mL LABDE SCAN 06/21/2014 8:45 AM CDT Narrative BOBBY PFT - 06/26/2014 7:33 AM CDT Verified by Pao Oswald on 06/22/2014. Verified by Pao Oswald on 06/22/2014. Verified by Rylee Guzman on 06/23/2014. Verified by Rylee Guzman on 06/26/2014. us Patient Reported LABORATORY Edited Result - Final BOBBY PFT LABDE SCAN documented in this encounter [...] the IP on-call for review. Meena Torres [facility] Infection Prevention 07/11/2019 at 3:56 [...] Out COVID-19 04/19/2020 04/19/2020 04/19/2020 1:56 PM LEGAL COUNSEL Rule Out COVID-19 04/19/2020 04/20/2020 04/20/2020 6:34 AM LEGAL COUNSEL Rule Out COVID-19 12/15/2020 12/15/2020 12/15/2020 4:33 PM CDT Rule Out C-difficile 01/06/2021 01/08/2021 021 11:43 AM LEGAL COUNSEL Rule Out C-difficile 07/10/2021 07/10/2021 022 5:56 PM CDT Rule Out C-difficile 07/16/2023 07/16/2023 024 9:21 PM CDT Rule Out Parvovirus 07/16/2023 07/16/2023 07/19/19 24 12:29 PM CDT Parvovirus 07/16/2023 07/16/2023 10/03/2024 4:22 PM CDT [id number] Comment:This patient was exposed to a person with a known CP-MANAGER TALENT ACQUISITION and has the potential for having acquired this pathogen of concern. The [place] Department of Health ([facility]) and CDC recommend that we screen this patient to prevent the spread of these organisms within our healthcare facility. Infection Prevention has placed orders for collecting a rectal swab for CP-MANAGER TALENT ACQUISITION to evaluate if this patient is now a carrier. This patient was identified to have a low risk exposure in which case Contact Precautions are not necessary unless the patient tests positive. Screening is voluntary. Please notify Infection Prevention if the patient declines testing. Additional information and resources can be found on the Infection Prevention MDRO Sharepoint page. 08/04/2023 08/04/2023 02/02/2024 11:39 PM LEGAL COUNSEL Rule Out Parvovirus 09/28/2023 09/28/2023 10/05/19 11:41 PM CDT documented as of this encounter Care Teams Automotive Fleet Supervisor Relationship Specialty Start Date End Date Robert Marley MD [address] [address] PCP - General Family Practice 12/08/10 Irish Kim RN Registered Nurse Transplant 05/26/14 09/20/14 Chana Cheng MD [facility] [address] [place] [address] Nephrology 05/26/14 11/12/15 Anoop Garcia MD [facility] [address] [place] [address] Transplant 05/26/14 02/02/18 Barbara Carlson MD [address] [place] [address] Referring Physician Nephrology 08/30/14 11/12/15 Tayo Lacey MD [address] [place] [address] Cardiology 08/30/14 Basil Plummer MD [address] [place] [address] Neurology 05/09/15 04/23/16 Charleen Lynne MD [address] [place] [address] MD Oncology 06/14/15 12/19/18 Olimpia Williamson, RN Nurse Coordinator Oncology 06/14/15 04/23/16 Rin Dewitt RN Nurse Coordinator Neurology 07/24/15 04/23/16 Rin Dewitt RN Nurse Coordinator Neurology 10/25/15 10/12/17 Qian Rodriguez MD 717 [facility] 353 [place] [address] Nephrology 11/13/15 06/16/16 Sherri Kingston PA 420 [facility] 394 [place] [address] Physician Dispatch Supervisor Physician Dispatch Supervisor 03/20/16 Olimpia Williamson, RN Nurse Coordinator Oncology 06/26/16 06/26/16 Olimpia Williamson, RN Nurse Coordinator Oncology 06/26/16 06/16/18 Christopher Quiroga MD [facility] [address] 200 [place] [address] Oncology 07/02/16 Claudia Yousif RN Nurse Coordinator Gastroenterology 02/09/17 09/16/22 Lance Simpson PA-C [address] [place] [address] Physician Dispatch Supervisor Physician Dispatch Supervisor 01/07/18 Olimpia Williamson, SONIA Specialty Clinical Trials Manager Hematology & Oncology 05/06/18 12/19/18 Sherri Kingston PA [address] [place] [address] [place] [address] Physician Dispatch Supervisor Physician Dispatch Supervisor 12/21/18 Delvin Bob MD [address] [place] [address] Internal Medicine 11/11/19 Charleen Lynne MD [address] [place] [address] 483965 Assigned Cancer Care Provider 12/23/19 03/23/21 Shakira Chapa MD [place] 06/29/2020 Assigned Surgical Provider 12/23/19 07/14/20 Zoltan Eric DPM [address] [facility] 300 [place] [address] Assigned Musculoskeletal Provider 12/23/19 07/26/21 Delvin Bob MD [address] [place] [address] Assigned PCP 12/08/19 02/14/22 Maximo Mathis DO [address] [place] [address] Assigned Neuroscience Provider 02/12/20 08/09/21 Sherri Kingston PA 909 [facility] [place] [address] Assigned Surgical Provider 07/15/20 10/06/20 Pedro Winchester MD [address] [place] [address] Assigned Heart and Vascular Provider 08/05/20 01/31/22 Shakira Chapa MD [place] 06/29/2020 Assigned Surgical Provider 10/07/20 10/13/20 Jovanni Dempsey MD 600 [place] [address] Assigned Nephrology Provider 03/24/21 03/14/22 Jovanni Dempsey MD 600 [place], [place] [address] Assigned Nephrology Provider 03/15/22 03/21/22 Len Hooks MD 717 [facility] 353 [place] [address] Assigned Nephrology Provider 03/22/22 12/26/22 Delvin Bob MD 420 [facility] 250 [place], [place] [address] Assigned PCP 04/26/22 12/12/22 Love Hernandez PA-C [address] [place] [address] [place] [address] Physician Dispatch Supervisor Urology 12/01/22 Conrado Evans MD [address] [place] [address] 1931 [place] [address] Assigned Nephrology Provider 12/27/22 06/21/24 Love Hernandez PA-C [address] [address] Assigned Surgical Provider 01/17/23 [place] [address] [place] [address] Assigned Gastroenterology Provider 07/23/23 Everardo Grant MD [address] [place] [address] Physician Infectious Diseases 09/23/23 Rey Billings MD [address] [place] [address] Assigned Infectious Disease Provider 10/23/23 Conrado Evans MD [address] [place] [address] Nephrology 08/25/24 Delvin Lopez MD [address] [place] [address] Nephrology 08/25/24 Carissa Putnam RN [facility] [address] [place] [address] Specialty Clinical Trials Manager Pharmacy 10/10/24 10/10/24 documented as of this encounter
--- OUTSIDE RECORDS SUMMARY | 2024-10-13 08:54 | XMS_ITS | Encounter Summary ---
Author Organization [facility] Address [address] [place] [address] Care Team Providers Care Navy Seal Name Role Phone Robert Marley MD Primary Care Provider Irish Kim RN Unavailable [phone] Chana Cheng MD Unavailable [phone] Anoop Garcia MD Unavailable Unavailable Barbara Carlson MD Unavailable Tayo Lacey MD Unavailable [phone] Basil Plummer MD Unavailable Charleen Lynne MD Unavailable [phone] Olimpia Williamson RN Unavailable [phone] Rin Dewitt RN Unavailable [phone] Rin Dewitt RN Unavailable [phone] Qian Rodirguez MD Unavailable [phone] Sherri Kingston Unavailable [phone] Olimpia Williamson RN Unavailable [phone] Olimpia Williamson RN Unavailable [phone] Christopher Quiroga MD Unavailable Claudia Yousif RN Unavailable Lance Simpson PA-C Unavailable [phone] Olimpia Williamson RN Unavailable [phone] Sherri Kingston Unavailable [phone] Delvin Bob MD Unavailable [phone] Charleen Lynne MD Unavailable [phone] ChapaShakira zelaya MD Unavailable Unav ailable Zoltan Eric DPM Unavailable +[phone] Delvin Bob MD Unavailable Maximo Mathis DO Unavailable + Sherri Kingston Unavailable [phone] Pedro Winchester MD Unavailable [phone] ChapaShakira zelaya MD Unavailable Unav ailable Jovanni Dempsey MD Unavailable [phone] Jovanni Dempsey MD Unavailable [phone] Len Hooks MD Unavailable Delvin Bob MD Unavailable [phone] Love Hernandez-C Unavailable [phone] Conrado Evans MD Unavailable [phone] Love Hernandez-C Unavailable Gordy Nickerson MD Unavailable Everardo Grant MD Unavailable Rey Billings MD Unavailable [phone] Conrado Evans MD Unavailable Delvin Lopez MD Unavailable [phone] Carissa Putnam RN Unavailable [phone] Encounter Details Date Type Department Care Team (Late st Contact Info) Description 06/09/2014 External Order Results [facility] [address] [phone] Social History Tobacco Use Types Packs/Day Years Used Date Smoking Tobacco: Former Smokeless Tobacco: Never Alcohol Use Standard Drinks/Week Comments No 0 (1 standard drink = 0.6 oz pur e alcohol) Comments No Sex and Gender Information Value Date Recorded Sex Assigned at Not on file Legal Sex Female 3:26 AM METHODS EXAMINER Gender Identity Not on file Sexual Orientation Not on file Occupation Industry Job Start Date Job End Date Not on file Not on file Not on file Not on file documented as of this encounter Progress Notes * Lance Gaona RN - 06/09/2014 11:00 AM CDTQuick Note: On K replacement. Changed to powder form from pill d/t intolerance. documented in this encounter Plan of Treatment Upcoming Encounters Date Type Department Care Team (Late st Contact Info) Description 10/25/2024 10:00 AM CDT Virtual Visit [facility] [address] [place] [address] Edith Brito 10/26/2024 8:[address] [facility] Medical Ctr [facility] [address] [facility] [address] [place] [phone] Conrado Evans MD 717 [facility] 353 [facility] 1932 [place] [address] documented as of this encounter Procedures Procedure Name Priority Date/Time Associated Diagnosis Comments EXTERNAL LAB RESULTS Routine 06/09/2014 8:25 AM CDT documented in this encounter Results * (ABNORMAL) TXP External Lab Result (06/09/2014 8:25 AM CDT) Calcium (External) 8.8 8.4 - 10.6 MG/DL LABDE SCAN Urea Nitrogen (External) 10 5 - 24 MG/DL LABDE SCAN Creatinine (External) 0.8 0.5 - 1.5 MG/DL LABDE SCAN Glucose (External) 92 60 - 115 MG/DL LABDE SCAN Sodium (External) 144 135 - 149 MMOL/L LABDE SCAN Potassium (External) 3.4(L) 3.6 - 5.1 MMOL/L LABDE SCAN Chloride (External) 106 96 - 114 MMOL/L LABDE SCAN CO2 (External) 26 20 - 32 MMOL/L LABDE SCAN Amylase (External) 58 18 - 89 U/L LABDE SCAN Phosphorus (External) 3.3 2.5 - 4.5 MG/DL LABDE SCAN Magnesium (External) 1.7 1.5 - 2.6 MG/DL LABDE SCAN Lipase Level (External) 92 23 - 300 U/L LABDE SCAN INR (External) 1.2(H) 0.88 - 1.12 LABDE SCAN WBC Count (External) 9.34 5.0 - 10.0 K/uL LABDE SCAN RBC Count (External) 3.41(L) 3.9 - 5.03 M/uL LABDE SCAN Hemoglobin (External) 9.6(L) 12.0 - 15.5 gm/dL LABDE SCAN Hematocrit (External) 31.1(L) 34.9 - 44.5 % LABDE SCAN MCV (External) 91 82 - 98 fL LABDE SCAN MCH (External) 28 27 - 34 pg LABDE SCAN MCHC (External) 31(L) 32 - 36 gm/dL LABDE SCAN Platelet Count (External) 432 150 - 450 K/uL LABDE SCAN % Neutrophils (External) 74.7 50.0 - 75.0 % LABDE SCAN % Lymphocytes (External) 4.9(L) 25.0 - 45.0 % LABDE SCAN % Monocytes (External) 12.5(H) 0.0 - 11.0 % LABDE SCAN % Eosinophils (External) 6.5 0.0 - 7.0 % LABDE SCAN % Basophils (External) 0.9 0.0 - 3.0 % LABDE SCAN Absolute Neutrophils (External) 6.97 1.7 - 7.0 K/uL LABDE SCAN Absolute Lymphocytes (External) 0.46(L) 0.9 - 2.9 K/uL LABDE SCAN Absolute Monocytes (External) 1.17(H) 0.3 - 0.9 K/uL LABDE SCAN Absolute Eosinophils (External) 0.61(H) 0.0 - 0.5 K/uL LABDE SCAN Absolute Basophils (External) 0.08 0.0 - 0.2 K/uL LABDE SCAN 06/09/2014 8:25 AM CDT Narrative BOBBY PFT - 06/09/2014 11:21 AM CDT Verified by Guerrero Pinzon on 06/09/2014. Verified by Guerrero Pinzon on 06/09/2014. us Patient Reported LABORATORY Edited Result - [...] the IP on-call for review. Meena Torres [facility] Infection Prevention 07/11/2019 at 3:56 PM 07/11/2019 [...] Out COVID-19 04/19/2020 04/19/2020 04/19/2020 1:56 PM METHODS EXAMINER Rule Out COVID-19 04/19/2020 04/20/2020 04/20/2020 6:34 AM METHODS EXAMINER Rule Out COVID-19 12/15/2020 12/15/2020 12/15/2020 4:33 PM CDT Rule Out C-difficile 01/06/2021 01/08/2021 021 11:43 AM METHODS EXAMINER Rule Out C-difficile 07/10/2021 07/10/2021 022 5:56 PM CDT Rule Out C-difficile 07/16/2023 07/16/2023 024 9:21 PM CDT Rule Out Parvovirus 07/16/2023 07/16/2023 07/19/19 24 12:29 PM CDT Parvovirus 07/16/2023 07/16/2023 10/03/2024 4:22 PM CDT [id number] Comment:This patient was exposed to a person with a known CP-PROFESSIONAL SERVICES CONSULTANT and has the potential for having acquired this pathogen of concern. The [place] Department of Health ([facility]) and CDC recommend that we screen this patient to prevent the spread of these organisms within our healthcare facility. Infection Prevention has placed orders for collecting a rectal swab for CP-PROFESSIONAL SERVICES CONSULTANT to evaluate if this patient is now a carrier. This patient was identified to have a low risk exposure in which case Contact Precautions are not necessary unless the patient tests positive. Screening is voluntary. Please notify Infection Prevention if the patient declines testing. Additional information and resources can be found on the Infection Prevention MDRO Sharepoint page. 08/04/2023 08/04/2023 02/02/2024 11:39 PM METHODS EXAMINER Rule Out Parvovirus 09/28/2023 09/28/2023 10/05/19 24 11:41 PM CDT documented as of this encounter Care Teams Navy Seal Relationship Specialty Start Date End Date Robert Marley MD [facility] [address] [place] [address] PCP - General Family Practice 12/08/10 Irish Kim RN Registered Nurse Transplant 05/26/14 09/20/14 Chana Cheng MD [facility] [address] [place] [address] Nephrology 05/26/14 11/12/15 Anoop Garcia MD [facility] [address] [place] [address] Transplant 05/26/14 02/02/18 Barbara Carlson MD [address] [place] [phone] Referring Physician Nephrology 08/30/14 11/12/15 Tayo Lacey MD [address] [place] [address] Cardiology 08/30/14 Basil Plummer MD [address] [place] [address] Neurology 05/09/15 04/23/16 Charleen Lynne MD [address] [place] [address] Oncology 06/14/15 12/19/18 Olimpia Williamson RN Nurse Coordinator Oncology 06/14/15 04/23/16 Rin Dewitt RN Nurse Coordinator Neurology 07/24/15 04/23/16 Rin Dewitt RN Nurse Coordinator Neurology 10/25/15 10/12/17 Qian Rodriguez MD 717 [facility] 353 [place], [place] [address] Nephrology 11/13/15 06/16/16 Sherri Kingston PA [address] [place] [address] 394 [place], [place] [phone] Physician Inspector Conveyor Line Physician Inspector Conveyor Line 03/20/16 Olimpia Williamson, RN Nurse Coordinator Oncology 06/26/16 06/26/16 Olimpia Williamson, RN Nurse Coordinator Oncology 06/26/16 06/16/18 Christopher Quiroga MD [facility] [address] [place] [id number] MD Oncology 07/02/16 Claudia Yousif RN Nurse Coordinator Gastroenterology 02/09/17 09/16/22 Lance Simpson PA-C [address] [place] [address] Physician Inspector Conveyor Line Physician Inspector Conveyor Line 01/07/18 Olimpia Williamson, RN Specialty Agricultural Consultant Hematology & Oncology 05/06/18 12/19/18 Sherri Kingston PA [address] [place] [address] Urology [place], [place] [phone] Physician Inspector Conveyor Line Physician Inspector Conveyor Line 12/21/18 Delvin Bob MD [address] [place] [address] Internal Medicine 11/11/19 Charleen Lynne MD 909 [place], [place] 9[address] Assigned Cancer Care Provider 12/23/19 03/23/21 Shakira Chapa MD [facility]NACTIVE IN [place] OF 06/29/2020 Assigned Surgical Provider 12/23/19 07/14/20 Zoltan Eric DPM [address] [employer] [facility] [address] [place] [address] Assigned Musculoskeletal Provider 12/23/19 07/26/21 Delvin Bob MD [address] [place] [address] Assigned PCP 12/08/19 02/14/22 Maximo Mathis DO 9 [place] [address] Assigned Neuroscience Provider 02/12/20 08/09/21 Sherri Kingston PA 909 [facility] Urology [place], [place] [address] Assigned Surgical Provider 07/15/20 10/06/20 Pedro Winchester MD [address] [place] [address] Assigned Heart and Vascular Provider 08/05/20 01/31/22 Shakira Chapa MD [place]CTIVE IN [place] OF 06/29/2020 Assigned Surgical Provider 10/07/20 10/13/20 Jovanni Dempsey MD 600 [place] [address] Assigned Nephrology Provider 03/24/21 03/14/22 Jvoanni Dempsey MD 600 [place], [place] 178902 Assigned Nephrology Provider 03/15/22 03/21/22 Len Hooks MD [address] [place] [place], [place] [address] Assigned Nephrology Provider 03/22/22 12/26/22 Delvin Bob MD [address] [facility] [address] [place], [place] [address] Assigned PCP 04/26/22 12/12/22 Lvoe Hernandez PA-C [address] [place], [place] [address] Physician Inspector Conveyor Line Urology 12/01/22 Conrado Evans MD [address] [facility] [address] [place], [place] 5[address] Assigned Nephrology Provider 12/27/22 06/21/24 Love Hernandez PA-C [address] [place] [place], [place] [address] Assigned Surgical Provider 01/17/23 [place] [address] [place] [address] 584939 Assigned Gastroenterology Provider 07/23/23 Everardo Grant MD 909 [place], [place] [phone] Physician Infectious Diseases 09/23/23 Rey Billings MD [address] [place] [address] Assigned Infectious Disease Provider 10/23/23 Conrado Evans MD 717 [facility] [address] [facility] [address] [place] [address] Nephrology 08/25/24 Delvin Lopez MD [address] [place] [address] Nephrology 08/25/24 Carissa Putnam RN [facility] [address] [place] [phone] Specialty Agricultural Consultant Pharmacy 10/10/24 10/10/24 documented as of this encounter
--- OUTSIDE RECORDS SUMMARY | 2024-10-13 08:54 | XMS_ITS | Encounter Summary ---
Author Organization [facility] Address [address] [place] [address] Care Team Providers Care Spring Assembler Name Role Phone Robert Marley MD Primary Care Provider [phone] Berna Kruse MD Unavailable [phone] Roxanna Armas RN Unavailable [phone] Irish Kim RN Unavailable [phone] Chana Cheng MD Unavailable [phone] Anoop Garcia MD Unavailable Unavailable Barbara Carlson MD Unavailable Tayo Lacey MD Unavailable [phone] TuBasil shaikh MD Unavailable MagedCharleen MD Unavailable [phone] Olimpia Williamson RN Unavailable [phone] Rin Dewitt RN Unavailable [phone] Rin Dewitt RN Unavailable [phone] Qian Rodriguez MD Unavailable [phone] Sherri Kingston Unavailable [phone] Olimpia Williamson RN Unavailable [phone] Olimpia Williamson RN Unavailable [phone] Christopher Quiroga MD Unavailable Claudia Yousif RN Unavailable Lance Simpson PA-C Unavailable Olimpia Williamson RN Unavailable [phone] Sherri Kingston PA Unavailable Delvin Bob MD Unavailable [phone] Charleen Lynen MD Unavailable [phone] ChapaShakira tellez MD Unavailable Unav ailable Hernesto Zoltan ADRIANM Unavailable +[phone] Lisbeth, Delvin England MD Unavailable Maximo Mathis DO Unavailable + Sherri Kingston Unavailable Pedro Winchester MD Unavailable [phone] ChapaShakira zelaya MD Unavailable Unav ailable Jovanni Dempsey MD Unavailable [phone] Jovanni Dempsey MD Unavailable Len Hooks MD Unavailable Delvin Bob MD Unavailable [phone] Love Hernandez-C Unavailable [phone] Conrado Evans MD Unavailable [phone] Love Hernandez PA-C Unavailable [phone] Gordy Nickerson MD Unavailable Everardo Grant MD Unavailable Rey Billings MD Unavailable [phone] Conrado Evans MD Unavailable Delvin Lopez MD Unavailable [phone] Carissa Putnam RN Unavailable [phone] Encounter Details Date Type Department Care Team (Late Contact Info) Description 05/02/2014 External Order Results [facility], Clinic 2A [facility] 516 [facility] 88 [place] [phone] Social History Tobacco Use Types Packs/Day Years Used Date Smoking Tobacco: Former Smokeless Tobacco: Never Alcohol Use Standard Drinks/Week Comments No 0 (1 standard drink = 0.6 oz pur e alcohol) Comments No Sex and Gender Information Value Date Recorded Sex Assigned at Not on file Legal Sex Female 3:26 AM CATERING ATTENDANT Gender Identity Not on file Sexual Orientation Not on file Occupation Industry Job Start Date Job End Date Not on file Not on file Not on file Not on file documented as of this encounter Plan of Treatment Upcoming Encounters Date Type Department Care Team (Late Contact Info) Description 10/25/2024 10:00 AM CDT Virtual Visit [facility] [address] [place] [address] Edith Brito 10/26/2024 8:30 AM CDT Lab [facility] Medical Ctr [facility] [address] [facility] 200 [place] [phone] Conrado Evans MD [address] [place] [address] 353 [facility] 1932 [place] [address] documented as of this encounter Procedures Procedure Name Priority Date/Time Associated Diagnosis Comments EXTERNAL LAB RESULTS Routine 05/01/2014 8:40 AM CATERING ATTENDANT documented in this encounter Results * (ABNORMAL) TXP External Lab Result (05/01/2014 8:40 AM CATERING ATTENDANT) Calcium (External) 8.7 8.4 - 10.6 MG/DL LABDE SCAN Urea Nitrogen (External) 20 5 - 24 MG/DL LABDE SCAN Creatinine (External) 1.0 0.5 - 1.5 MG/DL LABDE SCAN Glucose (External) 119(H) 60 - 115 mg/dL LABDE SCAN Sodium (External) 145 135 - 149 MMOL/L LABDE SCAN Potassium (External) 3.2(L) 3.6 - 5 MMOL/L LABDE SCAN Chloride (External) 107 96 - 114 MMOL/L LABDE SCAN CO2 (External) 28 MMOL/L LABDE SCAN Amylase (External) 62 18 - 89 U/L LABDE SCAN Phosphorus (External) 3.2 2.5 - 4.5 MG/DL LABDE SCAN Magnesium (External) 1.2(L) 1.5 - 2.6 MG/DL LABDE SCAN Lipase Level (External) 142 123 - 300 U/L LABDE SCAN WBC Count (External) 3.67(L) 5.00 - 10.00 K/UL LABDE SCAN RBC Count (External) 3.33(L) 3.90 - 5.03 M/UL LABDE SCAN Hemoglobin (External) 9.2(L) 12.0 - 15.5 GM/DL LABDE SCAN Hematocrit (External) 29.8(L) 34.9 - 44.5 % LABDE SCAN MCV (External) 90 82 - 98 FL LABDE SCAN MCH (External) 28 27 - 34 PG LABDE SCAN MCHC (External) 31(L) 32 - 36 GM/DL LABDE SCAN Platelet Count (External) 284 115.0 - 450 K/UL LABDE SCAN % Neutrophils (External) 87.2(H) 50.0 - 70.0 % LABDE SCAN % Lymphocytes (External) 8.4(L) 25.0 - 45.0 % LABDE SCAN % Monocytes (External) 3.3 0.00 - 11.0 % LABDE SCAN % Eosinophils (External) 0.8 0.0 - 7.0 % LABDE SCAN % Basophils (External) 0.3 0.0 - 3.0 % LABDE SCAN Absolute Neutrophils (External) 3.20 1.70 - 7.00 K/UL LABDE SCAN Absolute Lymphocytes (External) 0.31(L) 0.90 - 2.90 K/UL LABDE SCAN Absolute Monocytes (External) 0.12(L) 0.30 - 0.90 K/UL LABDE SCAN Absolute Eosinophils (External) 0.03 0.00 - 0.50 k/ul LABDE SCAN Absolute Basophils (External) 0.01 0.00 - 0.20 k/ul LABDE SCAN % Immature Granulocytes (External) 0.0 % LABDE SCAN Absolute Immature Granulocytes (External) 0.00(H) m/ul LABDE SCAN 05/01/2014 8:40 AM CATERING ATTENDANT Narrative BOBBY PFT - 05/02/2014 6:22 AM CATERING ATTENDANT Verified by Tayla Dodson on 05/02/2014. us Patient Reported LABORATORY Edited Result - [...] the IP on-call for review. Meena Torres, [facility] Infection Prevention 07/11/2019 at 3:56 PM 07/11/2019 [...] Out COVID-19 04/19/2020 04/19/2020 04/19/2020 1:56 PM CATERING ATTENDANT Rule Out COVID-19 04/19/2020 04/20/2020 04/20/2020 6:34 AM CATERING ATTENDANT Rule Out COVID-19 12/15/2020 12/15/2020 12/15/2020 4:33 PM CDT Rule Out C-difficile 01/06/2021 01/08/2021 021 11:43 AM CATERING ATTENDANT Rule Out C-difficile 07/10/2021 07/10/2021 022 5:56 PM CDT Rule Out C-difficile 07/16/2023 07/16/2023 024 9:21 PM CDT Rule Out Parvovirus 07/16/2023 07/16/2023 07/19/19 24 12:29 PM CDT Parvovirus 07/16/2023 07/16/2023 10/03/2024 4:22 PM CDT [id number] Comment:This patient was exposed to a person with a known CP-DIESEL ENGINE FITTER and has the potential for having acquired this pathogen of concern. The [place] Department of Health ([facility]) and CDC recommend that we screen this patient to prevent the spread of these organisms within our healthcare facility. Infection Prevention has placed orders for collecting a rectal swab for CP-DIESEL ENGINE FITTER to evaluate if this patient is now a carrier. This patient was identified to have a low risk exposure in which case Contact Precautions are not necessary unless the patient tests positive. Screening is voluntary. Please notify Infection Prevention if the patient declines testing. Additional information and resources can be found on the Infection Prevention MDRO Sharepoint page. 08/04/2023 08/04/2023 02/02/2024 11:39 PM CATERING ATTENDANT Rule Out Parvovirus 09/28/2023 09/28/2023 10/05/19 24 11:41 PM CDT documented as of this encounter Care Teams Spring Assembler Relationship Specialty Start Date End Date Robert Marley MD [facility] [address] [place] [address] PCP - General Family Practice 12/08/10 Berna Kruse MD [facility] [address] [place] [address] Nephrology 07/15/12 05/25/14 Roxanna Armas, RN Registered Nurse Transplant 07/15/12 05/25/14 Irish Kim RN Registered Nurse Transplant 05/26/14 09/20/14 Chana Cheng MD [facility] [address] [place] [address] Nephrology 05/26/14 11/12/15 Anoop Garcia MD [facility] [address] [place] [address] Transplant 05/26/14 02/02/18 Barbara Carlson MD [address] [place] [phone] Referring Physician Nephrology 08/30/14 11/12/15 Tayo Lacey MD [address] [place] [phone] Cardiology 08/30/14 Basil Plummer MD [address] [place] [address] Neurology 05/09/15 04/23/16 Charleen Lynne MD [address] [place] [address] MD Oncology 06/14/15 12/19/18 Olimpia Williamson, RN Nurse Coordinator Oncology 06/14/15 04/23/16 Rin Dewitt RN Nurse Coordinator Neurology 07/24/15 04/23/16 Rin Dewitt RN Nurse Coordinator Neurology 10/25/15 10/12/17 Qian Rodriguez MD 717 [facility] 353 [place], [place] [phone] Nephrology 11/13/15 06/16/16 Sherri Kingston PA 420 [facility] 394 [place], [place] [phone] Physician Truss Designer Physician Truss Designer 03/20/16 Olimpia Williamson, SONIA Nurse Coordinator Oncology 06/26/16 06/26/16 Olimpia Williamson, RN Nurse Coordinator Oncology 06/26/16 06/16/18 Christopher Quiroga MD [facility] [address] [facility] [address] [place], [place] [phone] Oncology 07/02/16 Claudia Yousif, RN Nurse Coordinator Gastroenterology 02/09/17 09/16/22 Lance Simpson PA-C 909 [place] [address] Physician Truss Designer Physician Truss Designer 01/07/18 Olimpia Williamson, RN Specialty Procedure Analyst Hematology & Oncology 05/06/18 12/19/18 Sherri Kingston PA [address] [place] [address] 498765 Physician Truss Designer Physician Truss Designer 12/21/18 Delvin Bob MD [address] [place] [address] 250 [place], [place] [address] Internal Medicine 11/11/19 Charleen Lynne MD [address] [place] [address] 120455 Assigned Cancer Care Provider 12/23/19 03/23/21 Shakira Chapa MD INACTIVE IN [place] OF 06/29/2020 Assigned Surgical Provider 12/23/19 07/14/20 Zoltan Eric DPM [address] [facility] [address] [place], [place] 4[address] Assigned Musculoskeletal Provider 12/23/19 07/26/21 Delvin Bob MD [address] [place] [address] 250 [place], [place] [address] Assigned PCP 12/08/19 02/14/22 Maximo Mathis DO [address] [place] [address] 277365 Assigned Neuroscience Provider 02/12/20 08/09/21 Sherri Kingston PA [address] [place] [address] 026925 Assigned Surgical Provider 07/15/20 10/06/20 Pedro Winchester MD [address] 550215 Assigned Heart and Vascular Provider 08/05/20 01/31/22 Shakira Chapa MD INACTIVE IN [place] OF 06/29/2020 Assigned Surgical Provider 10/07/20 10/13/20 Jovanni Dempsey MD 600 [place], [place] [address] Assigned Nephrology Provider 03/24/21 03/14/22 Jovanni Dempsey MD 600 [place], [place] 249972 Assigned Nephrology Provider 03/15/22 03/21/22 Len Hooks MD [address] [place] [address] [place], [place] [address] Assigned Nephrology Provider 03/22/22 12/26/22 Delvin Bob MD [address] [facility] [address] [place] [address] Assigned PCP 04/26/22 12/12/22 Love Hernandez PA-C [address] [place] [address] Physician Truss Designer Urology 12/01/22 Conrado Evans MD [address] [place] [facility] [address] [place], [place] [address] Assigned Nephrology Provider 12/27/22 06/21/24 Love Hernandez PA-C 6363 [facility] 500 [place], [place] [address] Assigned Surgical Provider 01/17/23 [place] [address], [place] 408769 Assigned Gastroenterology Provider 07/23/23 Everardo Grant MD 9 [place], [place] [phone] Physician Infectious Diseases 09/23/23 Rey Billings MD [address] [place] [address] [phone] Assigned Infectious Disease Provider 10/23/23 Conrado Evans MD [address] [place] [address] 353 [facility] [address] [place], [place] [phone] Nephrology 08/25/24 Delvin Lopez MD [address] [place] [address] [phone] Nephrology 08/25/24 Carissa Putnam, RN [facility] 711 [place], [place] [phone] Specialty Procedure Analyst Pharmacy 10/10/24 10/10/24 documented as of this encounter
--- OUTSIDE RECORDS SUMMARY | 2024-10-13 08:54 | XMS_ITS | Encounter Summary ---
Author Organization [facility] Address [address] [place] [address] Care Team Providers Care Operations Dispatcher Name Role Phone Robert Marley MD Primary Care Provider [phone] Tayo Lacey MD Unavailable [phone] Christopher Quiroga MD Unavailable Lance Simpson-C Unavailable Sherri Kingston Unavailable [phone] Delvin Bob MD Unavailable Love HernandezC Unavailable Conrado Evans MD Unavailable [phone] Love Hernandez-Alli Unavailable Gordy Nickerson MD Unavailable Everardo Grant MD Unavailable Rey Billings MD Unavailable [phone] Conrado Evans MD Unavailable [phone] Delvin Lopez MD Unavailable [phone] Carissa Putnam RN Unavailable [phone] Encounter Details Date Type Department Care Team (Late st Contact Info) Description 11/04/2023 External Order Results [facility] [address] [place] [address] Outside, Provider Kidney replaced by transplant; Anemia; Kidney transplanted; Pancreas transplanted (H) Social History Tobacco Use Types Packs/Day Years Used Date Smoking Tobacco: Former Smokeless Tobacco: Never Alcohol Use Standard Drinks/Week Comments No 0 (1 standard drink = 0.6 oz pur e alcohol) PHQ-2 Answer Date Recorded PHQ-2 Score 2 09/28/2023 Adolescent Education Answer Date Record ed Getting School Help Needed Not on file 11/22 Comments No Sex and Gender Information Value Date Recorded Sex Assigned at Not on file Legal Sex 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 Gender Identity Not on file Sexual Orientation Not on file Occupation Industry Job Start Date Job End Date Not on file Not on file Not on file Not on file documented as of this encounter Plan of Treatment Upcoming Encounters Date Type Department Care Team (Late st Contact Info) Description 10/25/2024 10:00 AM CDT Virtual Visit [facility] [address] [place] [address] Edith Brito 10/26/2024 8:30 AM CDT Lab [facility] [address] [facility] [address] [place] [address] Conrado Evans MD 717 [facility] 353 [facility] 1932 [place] [address] documented as of this encounter Procedures Procedure Name Priority Date/Time Associated Diagnosis Comments RETICULOCYTE COUNT Routine 11/04/2023 9: 16 AM CDT HEPATIC FUNCTION PANEL Routine 11/04/2023 9:16 AM CDT Kidney transplanted Pancreas transplanted (H) DIFFERENTIAL Routine 11/04/2023 9:16 AM CDT BASIC METABOLIC PANEL Routine 11/04/2023 9:16 AM CDT Kidney replaced by transplant Anemia CBC WITH PLATELETS Routine 11/04/2023 9: 16 AM CDT Kidney replaced by transplant Anemia documented in this encounter Results * (ABNORMAL) Manual Differential (11/04/2023 9:16 AM CDT) % Neutrophils (External) 70.7 43.0 - 74.0 % NON-INTERFACE D (ONBASE SCANS) Absolute Neutrophils (External) 5.9 1.6 - 6.6 K/uL NON-INTERFACE D (ONBASE SCANS) % Immature Granulocytes (External) 0.6(H) 0.0 - 0.5 % NON-INTERFACE D (ONBASE SCANS) Absolute Immature Granulocytes (External) 0.05(H) 0.00 - 0.03 K/uL NON-INTERFACE D (ONBASE SCANS) % Lymphocytes (External) 14.8 14.0 - 41.0 % NON-INTERFACE D (ONBASE SCANS) % Monocytes (External) 12.9 6.0 - 15.0 % NON-INTERFACE D (ONBASE SCANS) % Eosinophils (External) 0.6 0.0 - 7.0 % NON-INTERFACE D (ONBASE SCANS) % Basophils (External) 0.4 0.0 - 2.0 % NON-INTERFACE D (ONBASE SCANS) Absolute Lymphocytes (External) 1.2 0.4 - 3.6 K/uL NON-INTERFACE D (ONBASE SCANS) Absolute Monocytes (External) 1.1 0.2 - 1.3 K/uL NON-INTERFACE D (ONBASE SCANS) Absolute Eosinophils (External) 0.1 0.0 - 0.6 K/uL NON-INTERFACE D (ONBASE SCANS) Absolute Basophils (External) 0.0 0.0 - 0.2 K/uL NON-INTERFACE D (ONBASE SCANS) Nucleated RBCs (External) 0.0 0.0 - 0.2 # NON-INTERFACE D (ONBASE SCANS) Blood BLOOD SPECIMEN / Unknown 11/04/2023 9:16 AM CDT Narrative BOBBY NESBITT - 11/09/2023 12:13 PM CDT Verified by Olimpia Ba on 11/09/2023. us Provider Outside LAB - BLOOD ORDERABLES Edited R esult - Final BOBBY NESBITT NON-INTERFACED (ONBASE SCANS) * (ABNORMAL) Reticulocyte count (11/04/2023 9:16 AM CDT) Retic abs (External) 0.06 0.02 - 0.08 M/uL NON-INTERFACED (ONBASE SCANS) Retic % (External) 2.01(H) 0.40 - 1.60 % NON-INTERFACED (ONBASE SCANS) Blood BLOOD SPECIMEN / Unknown 11/04/2023 9:16 AM CDT Narrative BREEZE PFT - 11/09/2023 12:13 PM CDT Verified by Olimpia Ba on 11/09/2023. us Provider Outside LAB - BLOOD ORDERABLES Edited R esult - Final Performing Organization Address [facility] Co de Phone Number BREEZE PFT NON-INTERFACED (ONBASE SCANS) * (ABNORMAL) Hepatic function panel (11/04/2023 9:16 AM CDT) Albumin (External) 3.3(L) 3.5 - 5.0 g/dL NON-INTERFACE D (ONBASE SCANS) Alk Phosphatase (External) 86 36 - 125 U/L NON-INTERFACE D (ONBASE SCANS) ALT (External) 23 0 - 34 U/L NON- INTERFACE D (ONBASE SCANS) AST (External) 43(H) 14 - 36 U/L NON-INTERFACE D (ONBASE SCANS) Bilirubin Total (External) 0.3 0.2 - 1.3 mg/dL NON-INTERFACE D (ONBASE SCANS) Protein Total (External) 7.0 6.3 - 8.2 g/dL NON-INTERFACE D (ONBASE SCANS) Blood BLOOD SPECIMEN / Unknown 11/04/2023 9:16 AM CDT Narrative BREEZE PFT - 11/09/2023 12:13 PM CDT Verified by Olimpia Ba on 11/09/2023. us Conrado Evans MD LAB - BLOOD ORDERABLES E dited Result - Final Performing Organization Address City/[facility]/ZIP Co de Phone Number SILVANAEZE PFT NON-INTERFACED (ONBASE SCANS) * (ABNORMAL) CBC with platelets (11/04/2023 9:16 AM CDT) WBC Count (External) 8.3 3.0 - 8.9 K/uL NON-INTERFACE D (ONBASE SCANS) Hemoglobin (External) 8.4(L) 11.3 - 15.2 g/dL NON-INTERFACE D (ONBASE SCANS) RBC Count (External) 3.02(L) 3.90 - 5.10 M/uL NON-INTERFACE D (ONBASE SCANS) Hematocrit (External) 28.6(L) 35.0 - 48.0 % NON-INTERFACE D (ONBASE SCANS) MCV (External) 94.7 80.0 - 104.0 fL NON-INTERFACE D (ONBASE SCANS) MCH (External) 27.8 26.0 - 35.0 pg NON-INTERFACE D (ONBASE SCANS) MCHC (External) 29.4(L) 30.0 - 35.0 g/dL NON-INTERFACE D (ONBASE SCANS) RDW (External) 18.10(H) 11.40 - 16.10 % NON-INTERFACE D (ONBASE SCANS) Blood BLOOD SPECIMEN / Unknown 11/04/2023 9:16 AM CDT Narrative BOBBY PFT - 11/09/2023 12:13 PM CDT Verified by Olimpia Ba on 11/09/2023. Len Hooks MD LAB - BLOOD ORDERABLES Edited Re sult - Final BOBBY PFJovan NON-INTERFACED (ONBASE SCANS) * (ABNORMAL) Basic metabolic panel (11/04/2023 9:16 AM CDT) Urea Nitrogen (External) 36.0(H) 7.0 - 17.0 mg/dL NON-INTERFACE D (ONBASE SCANS) Calcium (External) 9.5 8.4 - 10.2 mg/dL NON-INTERFACE D (ONBASE SCANS) Chloride (External) 121(HH) 96 - 107 mmol/L NON-INTERFACE D (ONBASE SCANS) CO2 (External) 16(L) 22 - 30 mmol/L NON-INTERFACE D (ONBASE SCANS) Creatinine (External) 2.40(H) 0.66 - 1.25 mg/dL NON-INTERFACE D (ONBASE SCANS) GFR Estimated (External) 22.9(L) >60.0 ml/min/1.7 3m2 NON-INTERFACE D (ONBASE SCANS) Glucose (External) 120(H) 74 - 100 mg/dL NON-INTERFACE D (ONBASE SCANS) Potassium (External) 4.6 3.5 - 5.1 mmol/L NON-INTERFACE D (ONBASE SCANS) Sodium (External) 148(H) 137 - 145 mmol/L NON-INTERFACE D (ONBASE SCANS) Blood BLOOD SPECIMEN / Unknown 11/04/2023 9:16 AM CDT Narrative BOBBY PFT - 11/09/2023 12:13 PM CDT Verified by Olimpia Ba on 11/09/2023. 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 The [place] Department of Health ([facility]) and CDC recommend that we screen this patient to prevent the spread of these organisms within our healthcare facility. Infection Prevention has placed orders for collecting a rectal swab for CP-LITERACY EDUCATION PROFESSOR to evaluate if this patient is now a carrier. This patient was identified to have a low risk exposure in which case Contact Precautions are not necessary unless the patient tests positive. Screening is voluntary. Please notify Infection Prevention if the patient declines testing. Additional information and resources can be found on the Infection Prevention MDRO Sharepoint page. 08/04/2023 08/04/2023 02/02/2024 11:39 PM REAL ESTATE PORTFOLIO MANAGER Assessment Noted Time PHQ-9 Depression Total Score: 18 023 10:27 AM REAL ESTATE PORTFOLIO MANAGER documented as of this encounter Care Teams Operations Dispatcher Relationship Specialty Start Date End Date Robert Marley MD [facility] [address] [place] [address] PCP - General Family Practice 12/08/10 Tayo Lacey MD [facility] [address] [place] [address] Cardiology 08/30/14 Christopher Quiroga MD [facility] [address] [place], [place] [address] Oncology 07/02/16 Lance Simpson PA-C 909 [place], [place] [address] Physician Dewaxer Physician Dewaxer 01/07/18 Sherri Kingston PA 909 [facility] Urology [place], [place] [address] Physician Dewaxer Physician Dewaxer 12/21/18 Delvin Bob MD [address] [place] [address] 250 [place], [place] [address] Internal Medicine 11/11/19 Love Hernandez, PA-C [address] [facility] [address] [address] Physician Dewaxer Urology 12/01/22 Conrado Evans MD [address] [place] [address] Assigned Nephrology Provider 12/27/22 06/21/24 Love Hernandez PA-C 6363 [facility] 500 [place], [place] [address] Assigned Surgical Provider 01/17/23 [place] [address] [address], [place] [address] Assigned Gastroenterology Provider 07/23/23 Everardo Grant MD [address] [place] [address] 671665 Physician Infectious Diseases 09/23/23 Rey Billings MD [address] [place] [address] 9768[address] Assigned Infectious Disease Provider 10/23/23 Conrado Evans MD [address] [place] [address] [place] [address] Nephrology 08/25/24 Delvin Loepz MD [address] [place] [address] 964535 Nephrology 08/25/24 Carissa Putnam, RN [facility] [address] [place] [address] Specialty Prosthetist Pharmacy 10/10/24 documented as of this encounter
--- OUTSIDE RECORDS SUMMARY | 2024-10-13 08:55 | XMS_ITS | Encounter Summary ---
Author Organization [facility] Address [address] [place] [address] Care Team Providers Care Front Man Name Role Phone Robert Marley MD Primary Care Provider [phone] Tayo Lacey MD Unavailable [phone] Christopher Quiroga MD Unavailable Lance Simpson-C Unavailable Sherri Kingston Unavailable [phone] Delvin Bob MD Unavailable Love HernandezC Unavailable Conrado Evans MD Unavailable [phone] Love Hernandez-C Unavailable Gordy Nickerson MD Unavailable Everardo Grant MD Unavailable Rey Billings MD Unavailable [phone] Conrado Evans MD Unavailable [phone] Delvin Lopez MD Unavailable [phone] Carissa Putnam RN Unavailable [phone] Encounter Details Date Type Department Care Team (Late st Contact Info) Description 07/06/2023 [facility] [address] [place] [phone] Diana Parsons, RN Social History Tobacco Use Types Packs/Day Years Used Date Smoking Tobacco: Former Smokeless Tobacco: Never Alcohol Use Standard Drinks/Week Comments No 0 (1 standard drink = 0.6 oz pur e alcohol) PHQ-2 Answer Date Recorded PHQ-2 Score 0 07/01/2023 Adolescent Education Answer Date Record ed Getting School Help Needed Not on file 11/22 Comments No Sex and Gender Information Value Date Recorded Sex Assigned at Not on file Legal Sex Female 3:26 AM DEATH CLAIM EXAMINER Gender Identity Not on file Sexual Orientation Not on file Occupation Industry Job Start Date Job End Date Not on file Not on file Not on file Not on file documented as of this encounter Plan of Treatment Upcoming Encounters Date Type Department Care Team (Late st Contact Info) Description 10/25/2024 10:00 AM CDT Virtual Visit [facility] [address] [place] [address] Edith Brito 10/26/2024 8:30 AM CDT Lab [facility] [address] [facility] [address] [place] [address] Conrado Evans MD 717 [facility] 353 [facility] [address] [place] [address] documented as of this encounter Visit Diagnoses Not on filedocumented in this encounter Additional Health Concerns 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 The [place] Department of Health ([facility]) and CDC recommend that we screen this patient to prevent the spread of these organisms within our healthcare facility. Infection Prevention has placed orders for collecting a rectal swab for CP-HAT BLOCKING OPERATOR to evaluate if this patient is now a carrier. This patient was identified to have a low risk exposure in which case Contact Precautions are not necessary unless the patient tests positive. Screening is voluntary. Please notify Infection Prevention if the patient declines testing. Additional information and resources can be found on the Infection Prevention [employer]O Sharepoint page. 08/04/2023 08/04/2023 02/02/2024 11:39 PM DEATH CLAIM EXAMINER Rule Out Parvovirus 09/28/2023 09/28/2023 10/05/19 11:41 PM CDT Assessment Noted Time PHQ-9 Depression Total Score: 18 023 10:27 AM DEATH CLAIM EXAMINER documented as of this encounter Care Teams Front Man Relationship Specialty Start Date End Date Robert Marley MD [facility] [address] [place] [address] PCP - General Family Practice 12/08/10 Tayo Lacey MD [facility] [id number] [place] [address] Cardiology 08/30/14 Christopher Quiroga MD [facility] [address] [place] [address] Oncology 07/02/16 Lance Simpson PA-C [address] [place] [address] [phone] Physician Truck Car And Bus Cleaner Physician Truck Car And Bus Cleaner 01/07/18 Sherri Kingston PA [address] [place] [address] Urology [place], [place] 66[address] Physician Truck Car And Bus Cleaner Physician Truck Car And Bus Cleaner 12/21/18 Delvin Bob MD [address] [place] [address] 250 [place] [address] Internal Medicine 11/11/19 Love Hernandez PA-C 6363 [facility] 500 [place], [place] [address] Physician Truck Car And Bus Cleaner Urology 12/01/22 Conrado Evans MD [address] [place] [address] 353 [facility] [address] [place] [address] Assigned Nephrology Provider 12/27/22 06/21/24 Love Hernandez PA-C [address] [facility] [address] [facility] 500 [place], [place] [address] Assigned Surgical Provider 01/17/23 [place] [address] [address] [place], [place] [address] Assigned Gastroenterology Provider 07/23/23 Everardo Grant MD [address] [place] [address] Physician Infectious Diseases 09/23/23 Rey Billings MD [address] [place] [address] 873235 Assigned Infectious Disease Provider 10/23/23 Conrado Evans MD [address] [place] [address] 353 [facility] 1932 [place] [address] Nephrology 08/25/24 Delvin Lopez MD 9 [place], [place] [address] Nephrology 08/25/24 Carissa Putnam, RN [facility] [address] [place] [address] Specialty Hydrogeologist Pharmacy 10/10/24 documented as of this encounter
--- OUTSIDE RECORDS SUMMARY | 2024-10-13 08:55 | XMS_ITS | Encounter Summary ---
Author Organization [place] Address [address] [place] [address] Care Team Providers Care Faucet Polisher Name Role Phone Robert Marley MD Primary Care Provider [phone] Berna Kruse MD Unavailable [phone] Roxanna Armas RN Unavailable [phone] Irish Kim RN Unavailable [phone] Chana Cheng MD Unavailable [phone] Anoop Garcia MD Unavailable Unavailable Barbara Carlson MD Unavailable Tayo Lacey MD Unavailable [phone] TuBasil shaikh MD Unavailable MagedCharleen MD Unavailable [phone] Olimpia Williamson RN Unavailable [phone] Rin Dewitt RN Unavailable [phone] Rin Dewitt RN Unavailable [phone] Qian Rodriguez MD Unavailable [phone] Sherri Kingston Unavailable +[phone] Olimpia Williamson RN Unavailable [phone] Olimpia Williamson RN Unavailable [phone] Christopher Quiroga MD Unavailable Claudia Yousif RN Unavailable Lance Simpson PA-C Unavailable Olimpia Williamson RN Unavailable [phone] Sherri Kingston PA Unavailable Delvin Bob MD Unavailable [phone] Charleen Lynne MD Unavailable +[phone] ChapaShakira tellez MD Unavailable Unav ailable Hernesto Zoltan ADRIANM Unavailable +[phone] Lisbeth, Delvin England MD Unavailable Maximo Mathis DO Unavailable + Sherri Kingston Unavailable [phone] Pedro Winchester MD Unavailable [phone] ChapaShakira zelaya MD Unavailable Unav ailable Jovanni Dempsey MD Unavailable Jovanni Dempsey MD Unavailable Len Hooks MD Unavailable Delvin Bob MD Unavailable +[phone] Love Hernandez-C Unavailable [phone] Conrado Evans MD Unavailable +[phone] Love Hernandez PA-C Unavailable [phone] Gordy Nickerson MD Unavailable Everardo Grant MD Unavailable Rey Billings MD Unavailable [phone] Conrado Evans MD Unavailable [phone] Delvin Lopez MD Unavailable [phone] Carissa Putnam RN Unavailable [phone] Encounter Details Date Type Department Care Team (Late Contact Info) Description 03/27/2014 External Order Results [facility], Clinic 2[facility] Building 516 [facility] [address] [place] [phone] Social History Tobacco Use Types Packs/Day Years Used Date Smoking Tobacco: Former Smokeless Tobacco: Never Alcohol Use Standard Drinks/Week Comments No 0 (1 standard drink = 0.6 oz pur e alcohol) Comments No Sex and Gender Information Value Date Recorded Sex Assigned at Not on file Legal Sex Female 3:26 AM CLOTHES MARKER Gender Identity Not on file Sexual Orientation Not on file Occupation Industry Job Start Date Job End Date Not on file Not on file Not on file Not on file documented as of this encounter Plan of Treatment Upcoming Encounters Date Type Department Care Team (Late Contact Info) Description 10/25/2024 10:00 AM CDT Virtual Visit [facility] & [facility] [address] [place] [address] Edith Brito 10/26/2024 8:30 AM CDT Lab [facility] Cancer Center [facility] [address] [facility] 200 [place] [phone] Conrado Evans MD [address] [place] [address] 353 [facility] 1932 [place] [address] documented as of this encounter Procedures Procedure Name Priority Date/Time Associated Diagnosis Comments EXTERNAL LAB RESULTS Routine 03/27/2014 8:45 AM CLOTHES MARKER documented in this encounter Results * (ABNORMAL) TXP External Lab Result (03/27/2014 8:45 AM CLOTHES MARKER) Calcium (External) 9.0 8.4 - 10.6 MG/DL LABDE SCAN Urea Nitrogen (External) 21 5 - 24 MG/DL LABDE SCAN Creatinine (External) 0.7 0.5 - 1.5 mg/dL LABDE SCAN Glucose (External) 83 60 - 115 mg/dL LABDE SCAN Sodium (External) 145 135 - 149 MMOL/L LABDE SCAN Potassium (External) 3.9 3.6 - 5.1 MMOL/L LABDE SCAN Chloride (External) 102 96 - 114 MMOL/L LABDE SCAN CO2 (External) 26 20 - 32 MMOL LABDE SCAN Amylase (External) 87 18 - 89 U/L LABDE SCAN Phosphorus (External) 2.5 2.5 - 4.5 MG/DL LABDE SCAN Magnesium (External) 1.5 1.5 - 2.6 MG/DL LABDE SCAN Lipase Level (External) 242 23 - 300 U/L LABDE SCAN WBC Count (External) 5.06 5.00 - 10.00 K/UL LABDE SCAN RBC Count (External) 3.84(L) 3.9 - 5.03 M/UL LABDE SCAN Hemoglobin (External) 10.5(L) 12.0 - 15.5 GM/DL LABDE SCAN Hematocrit (External) 34.7(L) 34.9 - 44.5 % LABDE SCAN MCV (External) 90 82 - 98 FL LABDE SCAN MCH (External) 27 27 - 34 PG LABDE SCAN MCHC (External) 30(L) 32 - 36 GM/DL LABDE SCAN Platelet Count (External) 287 150 - 450 K/UL LABDE SCAN % Neutrophils (External) 81.6(H) 50.0 - 70.0 % LABDE SCAN % Lymphocytes (External) 9.1(L) 25.0 - 45.0 % LABDE SCAN % Monocytes (External) 5.9 0.0 - 11.0 % LABDE SCAN % Eosinophils (External) 2.2 0.0 - 7.0 % LABDE SCAN % Basophils (External) 0.8 0.0 - 3.0 % LABDE SCAN Absolute Neutrophils (External) 4.13 1.7 - 7.0 K/uL LABDE SCAN Absolute Lymphocytes (External) 0.46(L) 0.90 - 2.90 K/UL LABDE SCAN Absolute Monocytes (External) 0.30 0.30 - 0.90 K/UL LABDE SCAN Absolute Eosinophils (External) 0.11 0.0 - 0.5 K/UL LABDE SCAN Absolute Basophils (External) 0.04 0.0 - 0.2 K/UL LABDE SCAN % Immature Granulocytes (External) 0.4 % LABDE SCAN Absolute Immature Granulocytes (External) 0.02 K/UL LABDE SCAN Mycophenolic Acid (External) <0.5 1.0 - 3.5 ug/mL LABDE SCAN Everolimus (External) 4.4 LABDE SCAN 03/27/2014 8:45 AM CLOTHES MARKER Narrative BOBBY PFT - 03/31/2014 6:20 AM CLOTHES MARKER Verified by Guerrero Pinzon on 03/27/2014. Verified by Senait Blanco on 03/30/2014. Verified by Velvet Freeman on 03/31/2014. us Patient Reported LABORATORY Edited Result - [...] the IP on-call for review. 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 Rule Out COVID-19 04/19/2020 04/19/2020 04/19/2020 1:56 PM CLOTHES MARKER Rule Out COVID-19 04/19/2020 04/20/2020 04/20/2020 6:34 AM CLOTHES MARKER Rule Out COVID-19 12/15/2020 12/15/2020 12/15/2020 4:33 PM CDT Rule Out C-difficile 01/06/2021 01/08/2021 021 11:43 AM CLOTHES MARKER Rule Out C-difficile 07/10/2021 07/10/2021 022 5:56 PM CDT Rule Out C-difficile 07/16/2023 07/16/2023 024 9:21 PM CDT Rule Out Parvovirus 07/16/2023 07/16/2023 07/19/19 24 12:29 PM CDT Parvovirus 07/16/2023 07/16/2023 10/03/2024 4:22 PM CDT [id number] Comment:This patient was exposed to a person with a known CP-BOTTLE PACKER and has the potential for having acquired this pathogen of concern. The [place] Department of Health ([facility]) and CDC recommend that we screen this patient to prevent the spread of these organisms within our healthcare facility. Infection Prevention has placed orders for collecting a rectal swab for CP-BOTTLE PACKER to evaluate if this patient is now a carrier. This patient was identified to have a low risk exposure in which case Contact Precautions are not necessary unless the patient tests positive. Screening is voluntary. Please notify Infection Prevention if the patient declines testing. Additional information and resources can be found on the Infection Prevention MDRO Sharepoint page. 08/04/2023 08/04/2023 02/02/2024 11:39 PM CLOTHES MARKER Rule Out Parvovirus 09/28/2023 09/28/2023 10/05/19 24 11:41 PM CDT documented as of this encounter Care Teams Faucet Polisher Relationship Specialty Start Date End Date Robert Marley MD [facility] [id number] [place] [address] PCP - General Family Practice 12/08/10 Berna Kruse MD [facility] [address] [place] [address] Nephrology 07/15/12 05/25/14 Roxanna Armas, RN Registered Nurse Transplant 07/15/12 05/25/14 Irish Kim, RN Registered Nurse Transplant 05/26/14 09/20/14 Chana Cheng MD [facility] [address] [place] [address] Nephrology 05/26/14 11/12/15 Anoop Garcia MD [facility] [address] [place] [address] Transplant 05/26/14 02/02/18 Barbara Carlson MD [address] [place] [phone] Referring Physician Nephrology 08/30/14 11/12/15 Tayo Lacey MD [address] [place] [address] Cardiology 08/30/14 Basil Plummer MD 9 [place] [address] Neurology 05/09/15 04/23/16 Charleen Lynne MD 909 [place], [place] [address] Oncology 06/14/15 12/19/18 Olimpia Williamson, RN Nurse Coordinator Oncology 06/14/15 04/23/16 Rin Dewitt RN Nurse Coordinator Neurology 07/24/15 04/23/16 Rin Dewitt RN Nurse Coordinator Neurology 10/25/15 10/12/17 Qian Rodriguez MD [address] [place] [address] 353 [place] [address] Nephrology 11/13/15 06/16/16 Sherri Kingston PA [address] [place] [address] 394 [place] [address] Physician Fleshing Machine Operator Physician Fleshing Machine Operator 03/20/16 Olimpia Williamson, RN Nurse Coordinator Oncology 06/26/16 06/26/16 Olimpia Williamson, RN Nurse Coordinator Oncology 06/26/16 06/16/18 Christopher Quiroga MD [facility] [address] [place], [place] [phone] Oncology 07/02/16 Claudia Yousif, RN Nurse Coordinator Gastroenterology 02/09/17 09/16/22 Lance Simpson PA-C [address] [place] [address] Physician Fleshing Machine Operator Physician Fleshing Machine Operator 01/07/18 Olimpia Williamson, RN Specialty Captain Fire Prevention Bureau Hematology & Oncology 05/06/18 12/19/18 Sherri Kingston PA 909 [facility] [place] [address] Physician Fleshing Machine Operator Physician Fleshing Machine Operator 12/21/18 Delvin Bob MD [address] [place] [id number] Internal Medicine 11/11/19 Charleen Lynne MD 9 [place], [place] 318675 Assigned Cancer Care Provider 12/23/19 03/23/21 Shakira Chapa MD [facility] [place] 06/29/2020 Assigned Surgical Provider 12/23/19 07/14/20 Zoltan Eric DPM [address] [facility] [address] [place] [address] Assigned Musculoskeletal Provider 12/23/19 07/26/21 Delvin Bob MD [address] [place] [address] Assigned PCP 12/08/19 02/14/22 Maximo Mathis DO [address] [place] [address] Assigned Neuroscience Provider 02/12/20 08/09/21 Sherri Kingston PA 909 [facility] Urology [place], [place] [address]33[address] Assigned Surgical Provider 07/15/20 10/06/20 Pedro Winchester MD [address] [place] [address] Assigned Heart and Vascular Provider 08/05/20 01/31/22 Shakira Chapa MD [place] [place] 06/29/2020 Assigned Surgical Provider 10/07/20 10/13/20 Jovanni Dempsey MD 600 [place], [place] 849752 Assigned Nephrology Provider 03/24/21 03/14/22 Jovanni Dempsey MD 600 [place], [place] 789382 Assigned Nephrology Provider 03/15/22 03/21/22 Len Hooks MD 717 [facility] 353 [place] [address] Assigned Nephrology Provider 03/22/22 12/26/22 Delvin Bob MD 420 [facility] 250 [place] [address] Assigned PCP 04/26/22 12/12/22 Love Hernandez PA-C [address] [facility] 500 [place] [address] Physician Fleshing Machine Operator Urology 12/01/22 Conrado Evans MD [address] [place] [address] Assigned Nephrology Provider 12/27/22 06/21/24 Love Hernandez PA-C 6363 [facility] 500 [place], [place] 6[address] Assigned Surgical Provider 01/17/23 [place] [address] [address] [place], [place] [address] Assigned Gastroenterology Provider 07/23/23 Everardo Grant MD [address] [place] [address] Physician Infectious Diseases 09/23/23 Rey Billings MD [address] [place] [address] 175025 Assigned Infectious Disease Provider 10/23/23 Conrado Evans MD [address] [place] [address] Nephrology 08/25/24 Delvin Lopez MD [address] [place] [address] 287845 Nephrology 08/25/24 Carissa Putnam, RN [facility] [address] [place] [address] Specialty Captain Fire Prevention Bureau Pharmacy 10/10/24 10/10/24 documented as of this encounter
--- OUTSIDE RECORDS SUMMARY | 2024-10-13 08:55 | XMS_ITS | Encounter Summary ---
Author Organization [place] Address [address] [place] [address] Care Team Providers Care Mechanic Recovery Name Role Phone Robert Marley MD Primary Care Provider [phone] Berna Kruse MD Unavailable [phone] Roxanna Armas RN Unavailable [phone] Irish Kim RN Unavailable [phone] Chana Cheng MD Unavailable [phone] Anoop Garcia MD Unavailable Unavailable Barbara Carlson MD Unavailable Tayo Lacey MD Unavailable [phone] TuBasil shaikh MD Unavailable MagedCharleen MD Unavailable [phone] Olimpia Williamson RN Unavailable [phone] Rin Dewitt RN Unavailable [phone] Rin Dewitt RN Unavailable [phone] Qian Rodriguez MD Unavailable [phone] Sherri Kingston Unavailable [phone] Olimpia Williamson RN Unavailable [phone] Olimpia Williamson RN Unavailable [phone] Christopher Quiroga MD Unavailable Claudia Yousif RN Unavailable Lance Simpson PA-C Unavailable Olimpia Williamson RN Unavailable [phone] Sherri Kingston PA Unavailable Delvin Bob MD Unavailable Charleen Lynne MD Unavailable [phone] ChapaShakira tellez MD Unavailable Unav ailable Hernesto Zoltan ADRIANM Unavailable +[phone] Lisbeth, Delvin England MD Unavailable Maximo Mathis DO Unavailable + Sherri Kingston Unavailable [phone] Pedro Winchester MD Unavailable [phone] ChapaShakira zelaya MD Unavailable Unav ailable Jovanni Dempsey MD Unavailable Jovanni Dempsey MD Unavailable Len Hooks MD Unavailable Delvin Bob MD Unavailable [phone] Love Hernandez-C Unavailable [phone] Conrado Evans MD Unavailable +[phone] Love Hernandez PA-C Unavailable [phone] Gordy Nickerson MD Unavailable [phone] Everardo Grant MD Unavailable Rey Billings MD Unavailable [phone] Conrado Evans MD Unavailable Delvin Lopez MD Unavailable [phone] Carissa Putnam RN Unavailable [phone] Encounter Details Date Type Department Care Team (Late Contact Info) Description 05/17/2014 External Order Results [facility], Clinic 2A [facility] 516 [facility] 88 [place] [phone] Social History Tobacco Use Types Packs/Day Years Used Date Smoking Tobacco: Former Smokeless Tobacco: Never Alcohol Use Standard Drinks/Week Comments No 0 (1 standard drink = 0.6 oz pur e alcohol) Comments No Sex and Gender Information Value Date Recorded Sex Assigned at Not on file Legal Sex Female 3:26 AM PATIENT RELATIONS LIAISON Gender Identity Not on file Sexual Orientation Not on file Occupation Industry Job Start Date Job End Date Not on file Not on file Not on file Not on file documented as of this encounter Plan of Treatment Upcoming Encounters Date Type Department Care Team (Late Contact Info) Description 10/25/2024 10:00 AM CDT Virtual Visit [facility] Mental Health & [facility] [address] [place] [address] Edith Brito 10/26/2024 8:[address] [facility] Cancer Center [facility] Medical Ctr [facility] [address] [facility] 200 [place] [phone] Conrado Evans MD [address] [place] [address] 353 [facility] [facility] 1932 [place] [address] documented as of this encounter Procedures Procedure Name Priority Date/Time Associated Diagnosis Comments EXTERNAL LAB RESULTS Routine 05/15/2014 8:30 AM CDT documented in this encounter Results * (ABNORMAL) TXP External Lab Result (05/15/2014 8:30 AM CDT) Glucose (External) 88 60 - 115 mg/d LABDE SCAN Urea Nitrogen (External) 17 5 - 24 MG/DL LABDE SCAN Creatinine (External) 0.9 0.5 - 1.5 LABDE SCAN Sodium (External) 143 135 - 149 LABDE SCAN Potassium (External) 4.4 LABDE SCAN Chloride (External) 111 96 - 114 MMOL LABDE SCAN CO2 (External) 23 20 - 32 LABDE SCAN Calcium (External) 8.9 8.4 - 10.6 LABDE SCAN Phosphorus (External) 3.4 2.5 - 4.5 LABDE SCAN Magnesium (External) 1.4(L) 1.5 - 2.6 LABDE SCAN Amylase (External) 48 18 - 89 U/L LABDE SCAN Lipase Level (External) 104 23 - 300 U/L LABDE SCAN Mycophenolic Acid (External) <0.5(L) 1.0 - 3.5 ug/ml LABDE SCAN MPA Glucuronide (External) <5:0 35.0 - 100.0 ug/Ml LABDE SCAN Everolimus (External) 2.3 NG/Ml LABDE SCAN 05/15/2014 8:30 AM CDT Narrative BOBBY PFT - 05/22/2014 6:50 AM CDT Verified by Pao Oswald on 05/17/2014. Verified by Pao Oswald on 05/22/2014. us Patient Reported LABORATORY Edited Result - Final BREJAYDENE PFT LABDE SCAN documented in this encounter [...] the IP on-call for review. Meena Torres, [facility] Infection Prevention 07/11/2019 at 3:56 PM 07/11/2019 07/11/2019 09/23/2019 10:03 AM CDT Rule Out COVID-19 07/24/2019 07/24/2019 07/25/2019 5:33 AM CDT 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, 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 09/23/2019 09/23/2019 09/03/2019 11:12 AM CDT Rule Out COVID-19 09/27/2019 09/27/2019 09/27/2019 3:20 PM CDT VRE-Standard Precautions 11/01/2019 11/01/2019 5:40 PM CDT 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, 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 Rule Out COVID-19 04/19/2020 04/19/2020 04/19/2020 1:56 PM PATIENT RELATIONS LIAISON Rule Out COVID-19 04/19/2020 04/20/2020 04/20/2020 6:34 AM PATIENT RELATIONS LIAISON Rule Out COVID-19 12/15/2020 12/15/2020 12/15/2020 4:33 PM CDT Rule Out C-difficile 01/06/2021 01/08/2021 021 11:43 AM PATIENT RELATIONS LIAISON Rule Out C-difficile 07/10/2021 07/10/2021 022 5:56 PM CDT Rule Out C-difficile 07/16/2023 07/16/2023 024 9:21 PM CDT Rule Out Parvovirus 07/16/2023 07/16/2023 07/19/19 24 12:29 PM CDT Parvovirus 07/16/2023 07/16/2023 10/03/2024 4:22 PM CDT [id number] Comment:This patient was exposed to a person with a known CP-DIRECTOR SEARCH MARKETING STRATEGIES and has the potential for having acquired this pathogen of concern. The [place] Department of Health ([facility]) and CDC recommend that we screen this patient to prevent the spread of these organisms within our healthcare facility. Infection Prevention has placed orders for collecting a rectal swab for CP-DIRECTOR SEARCH MARKETING STRATEGIES to evaluate if this patient is now a carrier. This patient was identified to have a low risk exposure in which case Contact Precautions are not necessary unless the patient tests positive. Screening is voluntary. Please notify Infection Prevention if the patient declines testing. Additional information and resources can be found on the Infection Prevention MDRO Sharepoint page. 08/04/2023 08/04/2023 02/02/2024 11:39 PM PATIENT RELATIONS LIAISON Rule Out Parvovirus 09/28/2023 09/28/2023 10/05/19 11:41 PM CDT documented as of this encounter Care Teams Mechanic Recovery Relationship Specialty Start Date End Date Robert Marley MD [facility] [id number] [place] [address] PCP - General Family Practice 12/08/10 Berna Kruse MD [facility] [address] [place] [address] Nephrology 07/15/12 05/25/14 Roxanna Armas, RN Registered Nurse Transplant 07/15/12 05/25/14 Irish Kim, RN Registered Nurse Transplant 05/26/14 09/20/14 Chana Cheng MD [facility] [address] [place] [address] Nephrology 05/26/14 11/12/15 Anoop Garcia MD [facility] [address] [place] [address] Transplant 05/26/14 02/02/18 Barbara Carlson MD [address] [place] [phone] Referring Physician Nephrology 08/30/14 11/12/15 Tayo Lacey MD [address] [place] [address] Cardiology 08/30/14 Basil Plummer MD 909 [place] [address] Neurology 05/09/15 04/23/16 Charleen Lynne MD [address] [place] [address] Oncology 06/14/15 12/19/18 Olimpia Williamson, RN Nurse Coordinator Oncology 06/14/15 04/23/16 Rin Dewitt RN Nurse Coordinator Neurology 07/24/15 04/23/16 Rin Dewitt RN Nurse Coordinator Neurology 10/25/15 10/12/17 Qian Rodriguez MD [address] [place] [address] 353 [place], [place] 60[address] Nephrology 11/13/15 06/16/16 Sherri Kingston PA 420 [facility] 394 [place] [address] Physician Audiology Doctor Physician Audiology Doctor 03/20/16 Olimpia Williamson, RN Nurse Coordinator Oncology 06/26/16 06/26/16 Olimpia Williamson, RN Nurse Coordinator Oncology 06/26/16 06/16/18 Christopher Quiroga MD [facility] [address] [place], [place] [address] Oncology 07/02/16 Claudia Yousif, RN Nurse Coordinator Gastroenterology 02/09/17 09/16/22 Lance Simpson PA-C 909 [place] [address] Physician Audiology Doctor Physician Audiology Doctor 01/07/18 Olimpia Williamson, SON[place] Specialty Client Technical Specialist Hematology & Oncology 05/06/18 12/19/18 Sherri Kingston PA [address] [place] [address] Urology [place], [place] [address] Physician Audiology Doctor Physician Audiology Doctor 12/21/18 Delvin Bob MD 420 [facility] 250 [place], [place] [address] Internal Medicine 11/11/19 Charleen Lynne MD 9 [place], [place] 6[address] Assigned Cancer Care Provider 12/23/19 03/23/21 Shakira Chapa MD [place] [place] 06/29/2020 Assigned Surgical Provider 12/23/19 07/14/20 Zoltan Eric DPM [address] [facility] [address] [place] [address] Assigned Musculoskeletal Provider 12/23/19 07/26/21 Delvin Bob MD 420 [facility] 250 [place] [address] Assigned PCP 12/08/19 02/14/22 Maximo Mathis DO 909 [place] [address] Assigned Neuroscience Provider 02/12/20 08/09/21 Sherri Kingston PA 909 [facility] [place] [address] Assigned Surgical Provider 07/15/20 10/06/20 Pedro Winchester MD 6405 [facility] [place] [address] Assigned Heart and Vascular Provider 08/05/20 01/31/22 Shakira Chapa MD [place] 06/29/2020 Assigned Surgical Provider 10/07/20 10/13/20 Jovanni Dempsey MD 600 [place] [address] Assigned Nephrology Provider 03/24/21 03/14/22 Jovanni Dempsey MD 600 [place] [address] Assigned Nephrology Provider 03/15/22 03/21/22 Len Hooks MD 717 [facility] 353 [place] [address] Assigned Nephrology Provider 03/22/22 12/26/22 Delvin Bob MD 420 [facility] 250 [place] [address] Assigned PCP 04/26/22 12/12/22 Love Hernandez PA-C [address] [facility] 500 [place] [address] Physician Audiology Doctor Urology 12/01/22 Conrado Evans MD [address] [place] [address] Assigned Nephrology Provider 12/27/22 06/21/24 Love Hernandez PA-C [address] [facility] 500 [place], [place] [address] Assigned Surgical Provider 01/17/23 [place] [address] [place] [address] Assigned Gastroenterology Provider 07/23/23 Everardo Grant MD [address] [place] [address] Physician Infectious Diseases 09/23/23 Rey Billings MD [address] [place] [address] Assigned Infectious Disease Provider 10/23/23 Conrado Evans MD [address] [place] [address] Nephrology 08/25/24 Delvin Lopez MD [address] [place] [address] Nephrology 08/25/24 Carissa Putnam, RN [facility] 7[address] [place] [address] Specialty Client Technical Specialist Pharmacy 10/10/24 10/10/24 documented as of this encounter
--- OUTSIDE RECORDS SUMMARY | 2024-10-13 08:55 | XMS_ITS | Encounter Summary ---
Author Organization [facility] Address [address] [place] [address] Care Team Providers Care Cms Expert Name Role Phone Robert Marley MD Primary Care Provider [phone] Berna Kruse MD Unavailable [phone] Roxanna Armas RN Unavailable [phone] Irish Kim RN Unavailable [phone] Chana Cheng MD Unavailable [phone] Anoop Garcia MD Unavailable Unavailable Barbara Carlson MD Unavailable Tayo Lacey MD Unavailable [phone] TuBasil shaikh MD Unavailable MagedCharleen MD Unavailable [phone] Olimpia Williamson RN Unavailable [phone] Rin Dewitt RN Unavailable [phone] Rin Dewitt RN Unavailable [phone] Qian Rodriguez MD Unavailable [phone] Sherri Kingston Unavailable [phone] Olimpia Williamson RN Unavailable [phone] Olimpia Williamson RN Unavailable [phone] Christopher Quiroga MD Unavailable Claudia Yousif RN Unavailable Lance Simpson PA-C Unavailable Olimpia Williamson RN Unavailable [phone] Sherri Kingston PA Unavailable [phone] Delvin Bob MD Unavailable [phone] Charleen Lynne MD Unavailable [phone] ChapaShakira tellez MD Unavailable Unav ailable Hernesto Zoltan ADRIANM Unavailable +[phone] Lisbeth, Delvin England MD Unavailable [phone] Maximo Mathis DO Unavailable + Sherri Kingston Unavailable Pedro Winchester MD Unavailable [phone] ChapaShakira zelaya MD Unavailable Unav ailable Jovanni Dempsey MD Unavailable Jovanni Dempsey MD Unavailable [phone] Len Hooks MD Unavailable Delvin Bob MD Unavailable [phone] Love Hernandez-C Unavailable [phone] Conrado Evans MD Unavailable [phone] Love Hernandez PA-C Unavailable [phone] Gordy Nickerson MD Unavailable Everardo Grant MD Unavailable Rey Billings MD Unavailable [phone] Conrado Evans MD Unavailable Delvin Lopez MD Unavailable [phone] Carissa Putnam RN Unavailable [phone] Encounter Details Date Type Department Care Team (Late Contact Info) Description 04/24/2014 External Order Results [facility] 2nd Floor, Clinic [address] [address] [facility] [address] [place] [phone] Social History Tobacco Use Types Packs/Day Years Used Date Smoking Tobacco: Former Smokeless Tobacco: Never Alcohol Use Standard Drinks/Week Comments No 0 (1 standard drink = 0.6 oz pur e alcohol) Comments No Sex and Gender Information Value Date Recorded Sex Assigned at Not on file Legal Sex Female 3:26 AM BUSINESS DEVELOPMENT AGENT Gender Identity Not on file Sexual Orientation Not on file Occupation Industry Job Start Date Job End Date Not on file Not on file Not on file Not on file documented as of this encounter Plan of Treatment Upcoming Encounters Date Type Department Care Team (Late Contact Info) Description 10/25/2024 10:00 AM CDT Virtual Visit [facility] [address] [place] [address] Edith Brito 10/26/2024 8:30 AM CDT Lab [facility] [address] [facility] [address] [place] [phone] Conrado Evans MD [address] [place] [address] 353 [facility] [address] [place] [address] documented as of this encounter Procedures Procedure Name Priority Date/Time Associated Diagnosis Comments EXTERNAL LAB RESULTS Routine 04/24/2014 8:50 AM BUSINESS DEVELOPMENT AGENT documented in this encounter Results * (ABNORMAL) TXP External Lab Result (04/24/2014 8:50 AM BUSINESS DEVELOPMENT AGENT) INR (External) 1.9(H) 0.88 - 1.12 LABDE SCAN WBC Count (External) 2.88(L) 5.0 - 10.0 K/UL LABDE SCAN RBC Count (External) 3.49(L) 3.9 - 5.03 M/UL LABDE SCAN Hemoglobin (External) 9.3(L) 12.0 - 15.5 g/dL LABDE SCAN Hematocrit (External) 30.8(L) 34.9 - 44.5 % LABDE SCAN MCV (External) 88 82 - 98 fL LABDE SCAN MCH (External) 27 27 - 34 pg LABDE SCAN MCHC (External) 30(L) 32 - 36 g/dL LABDE SCAN Platelet Count (External) 248 150 - 450 K/UL LABDE SCAN % Neutrophils (External) 77.9(H) 50.0 - 70.0 % LABDE SCAN % Lymphocytes (External) 13.5(L) 25.0 - 45.0 % LABDE SCAN % Monocytes (External) 5.9 0.0 - 11.0 % LABDE SCAN % Eosinophils (External) 1.7 0.0 - 7.0 % LABDE SCAN % Basophils (External) 0.7 0.0 - 3.0 % LABDE SCAN Absolute Neutrophils (External) 2.24 1.7 - 7.0 K/UL LABDE SCAN Absolute Lymphocytes (External) 0.39(L) 0.9 - 2.9 K/UL LABDE SCAN Absolute Monocytes (External) 0.17(L) 0.3 - 0.9 K/UL LABDE SCAN Absolute Eosinophils (External) 0.05 0.0 - 0.5 K/UL LABDE SCAN Absolute Basophils (External) 0.02 0.0 - 0.2 K/UL LABDE SCAN Glucose (External) 71 60 - 115 mg/dL LABDE SCAN Urea Nitrogen (External) 18 5 - 24 mg/dL LABDE SCAN Creatinine (External) 0.9 0.5 - 1.5 mg/dL LABDE SCAN Sodium (External) 143 135 - 149 mmol/L LABDE SCAN Potassium (External) 3.5(L) 3.6 - 5.1 mmol/L LABDE SCAN Chloride (External) 110 96 - 114 mmol/L LABDE SCAN CO2 (External) 25 20 - 32 mmol/L LABDE SCAN Calcium (External) 8.8 8.4 - 10.6 mg/dL LABDE SCAN Phosphorus (External) 3.0 2.5 - 4.5 mg/dL LABDE SCAN Magnesium (External) 1.3(L) 1.5 - 2.6 mg/dL LABDE SCAN Amylase (External) 53 18 - 89 U/L LABDE SCAN Lipase Level (External) 87 23 - 300 U/L LABDE SCAN 04/24/2014 8:50 AM BUSINESS DEVELOPMENT AGENT Narrative BOBBY PFT - 04/24/2014 2:16 PM BUSINESS DEVELOPMENT AGENT Verified by Guerrero Pinzon on 04/24/2014. us Patient Reported LABORATORY Edited Result - [...] the IP on-call for review. Meena Torres, [facility] Infection Prevention 07/11/2019 at 3:56 PM 07/11/2019 07/11/2019 09/23/2019 10:03 AM CDT Rule Out COVID-19 07/24/2019 07/24/2019 07/25/2019 5:33 AM CDT 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, 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 09/23/2019 09/23/2019 0903/2019 11:12 AM CDT Rule Out COVID-19 09/27/2019 09/27/2019 09/27/2019 3:20 PM CDT VRE-Standard Precautions 11/01/2019 11/01/2019 5:40 PM CDT 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, 4/4/15 urine 12/26/2019 12/26/2019 Rule Out COVID-19 04/19/2020 04/19/2020 04/19/2020 1:56 PM BUSINESS DEVELOPMENT AGENT Rule Out COVID-19 04/19/2020 04/20/2020 04/20/2020 6:34 AM BUSINESS DEVELOPMENT AGENT Rule Out COVID-19 12/15/2020 12/15/2020 12/15/2020 4:33 PM CDT Rule Out C-difficile 01/06/2021 01/08/2021 021 11:43 AM BUSINESS DEVELOPMENT AGENT Rule Out C-difficile 07/10/2021 07/10/2021 022 5:56 PM CDT Rule Out C-difficile 07/16/2023 07/16/2023 024 9:21 PM CDT Rule Out Parvovirus 07/16/2023 07/16/2023 07/19/19 24 12:29 PM CDT Parvovirus 07/16/2023 07/16/2023 10/03/2024 4:22 PM CDT [id number] Comment:This patient was exposed to a person with a known CP-ADVERTISING STATISTICAL CLERK and has the potential for having acquired this pathogen of concern. The [place] Department of Health ([facility]) and CDC recommend that we screen this patient to prevent the spread of these organisms within our healthcare facility. Infection Prevention has placed orders for collecting a rectal swab for CP-ADVERTISING STATISTICAL CLERK to evaluate if this patient is now a carrier. This patient was identified to have a low risk exposure in which case Contact Precautions are not necessary unless the patient tests positive. Screening is voluntary. Please notify Infection Prevention if the patient declines testing. Additional information and resources can be found on the Infection Prevention [employer] Sharepoint page. 08/04/2023 08/04/2023 02/02/2024 11:39 PM BUSINESS DEVELOPMENT AGENT Rule Out Parvovirus 09/28/2023 09/28/2023 10/05/19 24 11:41 PM CDT documented as of this encounter Care Teams Cms Expert Relationship Specialty Start Date End Date Robert Marley MD [facility] [id number] [place] [address] PCP - General Family Practice 12/08/10 Berna Kruse MD [facility] [address] [place] [address] Nephrology 07/15/12 05/25/14 Roxanna Armas, RN Registered Nurse Transplant 07/15/12 05/25/14 Irish Kim RN Registered Nurse Transplant 05/26/14 09/20/14 Chana Cheng MD [facility] [address] [place] [address] Nephrology 05/26/14 11/12/15 Anoop Garcia MD [facility] [address] [place] [address] Transplant 05/26/14 02/02/18 Barbara Carlson MD [address] [place] [phone] Referring Physician Nephrology 08/30/14 11/12/15 Tayo Lacey MD [address] [place] [phone] Cardiology 08/30/14 Basil Plummer MD [address] [place] [address] [id number] Neurology 05/09/15 04/23/16 Charleen Lynne MD [address] [place] [address] [id number] Oncology 06/14/15 12/19/18 Olimpia Williamson RN Nurse Coordinator Oncology 06/14/15 04/23/16 Rin Dewitt RN Nurse Coordinator Neurology 07/24/15 04/23/16 Rin Dewitt RN Nurse Coordinator Neurology 10/25/15 10/12/17 Qian Rodriguez MD [address] [facility] [address] [place] [address] Nephrology 11/13/15 06/16/16 Sherri Kingston PA [address] [facility] [address] [place], [place] [phone] Physician Host Coordinator Physician Host Coordinator 03/20/16 Olimpia Williamson RN Nurse Coordinator Oncology 06/26/16 06/26/16 Olimpia Williamson, SONIA Nurse Coordinator Oncology 06/26/16 06/16/[address] [facility]EMATOLOGY [address] 200 [place], [place] [phone] Oncology 07/02/16 Claudia Yousif RN Nurse Coordinator Gastroenterology 02/09/17 09/16/22 Lance Simpson PA-C [address] [place] [address] Physician Host Coordinator Physician Host Coordinator 01/07/18 Olimpia Williamson RN Specialty Engagement Executive Hematology & Oncology 05/06/18 12/19/18 Sherri Kingston PA [address] [place], [place] [address]y [place] [address] Physician Host Coordinator Physician Host Coordinator 12/21/18 Delvin Bob MD [address] [facility] [address] [place] [address] Internal Medicine 11/11/19 Charleen Lynne MD [address] [place] [address] [phone] Assigned Cancer Care Provider 12/23/19 03/23/21 Shakira Chapa MD INACTIVE IN CT OF 06/29/2020 Assigned Surgical Provider 12/23/19 07/14/20 Zoltan Eric DPM [address] [facility] [address] [place] [address] Assigned Musculoskeletal Provider 12/23/19 07/26/21 Delvin Bob MD [address] [place] [address] [address] [place] [address] Assigned PCP 12/08/19 02/14/22 Maximo Mathis DO [address] [place] [address] [phone] Assigned Neuroscience Provider 02/12/20 08/09/21 Sherri Kingston PA [address] [place], [place] [address]y [place] [address] Assigned Surgical Provider 07/15/20 10/06/20 Pedro Winchester MD [address] [place] [phone] Assigned Heart and Vascular Provider 08/05/20 01/31/22 Shakira Chapa MD INACTIVE IN CT OF 06/29/2020 Assigned Surgical Provider 10/07/20 10/13/20 Jovanni Dempsey MD [address] [place], [place] 867922 Assigned Nephrology Provider 03/24/21 03/14/22 Jovanni Dempsey MD [address] [place], [place] 796722 Assigned Nephrology Provider 03/15/22 03/21/22 Len Hooks MD [address] [place] [address] [place], [place] [address] Assigned Nephrology Provider 03/22/22 12/26/22 Delvin Bob MD [address] [facility] [address] [place], [place] 9[address] Assigned PCP 04/26/22 12/12/22 Love Hernandez PA-C [address] [place] [address] [place] [address] Physician Host Coordinator Urology 12/01/22 Conrado Evans MD [address] [place] [address] [facility] [address] [place], [place] 26[address] Assigned Nephrology Provider 12/27/22 06/21/24 Love Hernandez PA-C [address] [facility] [address] [place], [place] 839[address] Assigned Surgical Provider 01/17/23 [place] [address] [place] [address] Assigned Gastroenterology Provider 07/23/23 Everardo Grant MD 9 [place], [place] 572045 Physician Infectious Diseases 09/23/23 Rey Billings MD [address] [place], [place] 5[address]185 Assigned Infectious Disease Provider 10/23/23 Conrado Evans MD [address] [facility] [address] [facility] [address] [place], [place] 8[address] Nephrology 08/25/24 Delvin Lopez MD [address] [place] [address] [phone] Nephrology 08/25/24 Carissa Putnam, RN [facility] [address] [place] [address] Specialty Engagement Executive Pharmacy 10/10/24 10/10/24 documented as of this encounter
--- OUTSIDE RECORDS SUMMARY | 2024-10-13 08:55 | XMS_ITS | Encounter Summary ---
Author Organization [facility] Address [address] [place] [address] Care Team Providers Care Advertising Operations Coordinator Name Role Phone Robert Marley MD Primary Care Provider [phone] Tayo Lacey MD Unavailable [phone] Christopher Quiroga MD Unavailable Lance Simpson-C Unavailable [phone] Sherri Kingston Unavailable [phone] Delvin Bob MD Unavailable Love HernandezC Unavailable Conrado Evans MD Unavailable [phone] Love Hernandez-Alli Unavailable Gordy Nickerson MD Unavailable Everardo Grant MD Unavailable Rey Billings MD Unavailable [phone] Conrado Evans MD Unavailable Delvin Lopez MD Unavailable [phone] Carissa Putnam RN Unavailable [phone] Encounter Details Date Type Department Care Team (Late st Contact Info) Description 09/09/2023 External Order Results [facility] [address] [place] [address] Outside, Provider Kidney transplanted; Pancreas transplanted (H) Social History [...] on file Legal Sex Female 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 Gender Identity Not on file Sexual Orientation Not on file Occupation Industry Job Start Date Job End Date Not on file Not on file Not on file Not on file documented as of this encounter Plan of Treatment Upcoming Encounters Date Type Department Care Team (Late st Contact Info) Description 10/25/2024 10:00 AM CDT Virtual Visit [facility] [address] [place] [address] Edith Brito 10/26/2024 8:30 AM CDT Lab [facility] [address] [facility] 200 [place] [address] Conrado Evans MD 715 [facility] 353 [facility] [address] [place] [address] documented as of this encounter Procedures Procedure Name Priority Date/Time Associated Diagnosis Comments IGG Routine 09/09/2023 10:13 AM CDT RETICULOCYTE COUNT Routine 09/09/2023 10 :13 AM CDT IGM Routine 09/09/2023 10:13 AM CDT IGA Routine 09/09/2023 10:13 AM CDT HEPATIC FUNCTION PANEL Routine 09/09/2023 10:13 AM CDT Kidney transplanted Pancreas transplanted (H) DIFFERENTIAL Routine 09/09/2023 10:13 AM CDT BASIC METABOLIC PANEL Routine 09/09/2023 10:13 AM CDT Kidney transplanted Pancreas transplanted (H) CBC WITH PLATELETS Routine 09/09/2023 10 :13 AM CDT Kidney transplanted Pancreas transplanted (H) documented in this encounter Results * (ABNORMAL) Reticulocyte count (09/09/2023 10:13 AM CDT) Pathologist [facility] Retic abs (External) 0.01(L) 0.02 - 0.08 M/UL NON-INTERFACED (ONBASE SCANS) Retic % (External) 0.2(L) 0.40 - 1.60 % NON-INTERFACED (ONBASE SCANS) Blood BLOOD SPECIMEN / Unknown 09/09/2023 10:13 AM CDT Narrative XANDEREliceo PFT - 09/14/2023 1:59 PM CDT Verified by Caridad Kaye on 09/14/2023. us Provider Outside LAB - BLOOD ORDERABLES Edited R esult - Final BOBBY PFJovan NON-INTERFACED (ONBASE SCANS) * (ABNORMAL) Manual Differential (09/09/2023 10:13 AM CDT) Pathologist [facility] % Neutrophils (External) 47.3 43.0 - 74.0 % NON-INTERFACE D (ONBASE SCANS) Absolute Neutrophils (External) 2.7 1.6 - 6.6 K/uL NON-INTERFACE D (ONBASE SCANS) % Immature Granulocytes (External) 0.2 0.0 - 0.5 % NON-INTERFACE D (ONBASE SCANS) Absolute Immature Granulocytes (External) 0.01 0.00 - 0.03 K/uL NON-INTERFACE D (ONBASE SCANS) % Lymphocytes (External) 33.6 14.0 - 41.0 % NON-INTERFACE D (ONBASE SCANS) % Monocytes (External) 17.3(H) 6.0 - 15.0 % NON-INTERFACE D (ONBASE SCANS) % Eosinophils (External) 0.9 0.0 - 7.0 % NON-INTERFACE D (ONBASE SCANS) % Basophils (External) 0.7 0.0 - 2.0 % NON-INTERFACE D (ONBASE SCANS) Absolute Lymphocytes (External) 1.9 0.4 - 3.6 K/uL NON-INTERFACE D (ONBASE SCANS) Absolute Monocytes (External) 1.0 0.2 - 1.3 K/uL NON-INTERFACE D (ONBASE SCANS) Absolute Eosinophils (External) 0.1 0.0 - 0.6 K/uL NON-INTERFACE D (ONBASE SCANS) Absolute Basophils (External) 0.0 0.0 - 0.2 K/uL NON-INTERFACE D (ONBASE SCANS) Nucleated RBCs (External) 0.0 0.0 - 0.2 /100 WBC NON-INTERFACE D (ONBASE SCANS) Blood BLOOD SPECIMEN / Unknown 09/09/2023 10:13 AM CDT Narrative BREEZE PFT - 09/14/2023 1:59 PM CDT Verified by Caridad Kaye on 09/14/2023. Provider Outside LAB - BLOOD ORDERABLES Edited [employer] BREEZE PFT NON-INTERFACED (ONBASE SCANS) * IgG (09/09/2023 10:13 AM CDT) Pathologist [facility] IgG (External) 982.72 610.00 - 1,616.00 mg/dL NON-INTERFACED (ONBASE SCANS) Blood BLOOD SPECIMEN / Unknown 09/09/2023 10:13 AM CDT Narrative BREEZE PFT - 09/14/2023 1:59 PM CDT Verified by Caridad Kaye on 09/14/2023. Provider Outside LAB - BLOOD ORDERABLES Edited R Style[employer] BREEZE PFT NON-INTERFACED (ONBASE SCANS) * IgA (09/09/2023 10:13 AM CDT) IgA (External) 255.72 61.00 - 348.00 mg/dL NON-INTERFACED (ONBASE SCANS) Blood BLOOD SPECIMEN / Unknown 09/09/2023 10:13 AM CDT Narrative BREEZE PFT - 09/14/2023 1:59 PM CDT Verified by Caridad Kaye on 09/14/2023. Provider Outside LAB - BLOOD ORDERABLES Edited Assurelygerald [facility] Beyond Compliance Performing Organization Address City/[facility]/ZIP Co de Phone Number SILVANAEZE PFT NON-INTERFACED (ONBASE SCANS) * IgM (09/09/2023 10:13 AM CDT) IgM (External) 76.34 35.00 - 242.00 mg/dL NON-INTERFACED (ONBASE SCANS) Blood BLOOD SPECIMEN / Unknown 09/09/2023 10:13 AM CDT Narrative BREEZE PFT - 09/14/2023 1:59 PM CDT Verified by Caridad Kaye on 09/14/2023. Provider Outside LAB - BLOOD ORDERABLES Edited [employer] Performing Organization Address [facility] Co de Phone Number XANDERE PFT NON-INTERFACED (ONBASE SCANS) * (ABNORMAL) Hepatic function panel (09/09/2023 10:13 AM CDT) Albumin (External) 3.3(L) 3.5 - 5.0 g/dL NON-INTERFACE D (ONBASE SCANS) Alk Phosphatase (External) 89 36 - 125 U/L NON-INTERFACE D (ONBASE SCANS) ALT (External) 43(H) 0 - 34 U/L NON- INTERFACE D (ONBASE SCANS) AST (External) 53(H) 14 - 36 U/L NON-INTERFACE D (ONBASE SCANS) Bilirubin Total (External) 0.3 0.2 - 1.3 mg/dL NON-INTERFACE D (ONBASE SCANS) Protein Total (External) 6.4 6.3 - 8.2 g/dL NON-INTERFACE D (ONBASE SCANS) Blood BLOOD SPECIMEN / Unknown 09/09/2023 10:13 AM CDT Narrative BREEZE PFT - 09/14/2023 1:59 PM CDT Verified by Caridad Kaye on 09/14/2023. us Conrado Evans MD LAB - BLOOD ORDERABLES E dited Result - Final Performing Organization Address City/[facility]/ZIP Co de Phone Number BREEZE PFT NON-INTERFACED (ONBASE SCANS) * (ABNORMAL) CBC with platelets (09/09/2023 10:13 AM CDT) WBC Count (External) 5.7 3.0 - 8.9 K/uL NON-INTERFACE D (ONBASE SCANS) Hemoglobin (External) 7.8(LL) 11.3 - 15.2 g/dL NON-INTERFACE D (ONBASE SCANS) Platelet Count (External) 222 113 - 364 K/uL NON-INTERFACE D (ONBASE SCANS) RBC Count (External) 2.76(L) 3.90 - 5.10 M/uL NON-INTERFACE D (ONBASE SCANS) Hematocrit (External) 24.8(L) 35.0 - 48.0 % NON-INTERFACE D (ONBASE SCANS) MCV (External) 89.9 80.0 - 104.0 fL NON-INTERFACE D (ONBASE SCANS) MCH (External) 28.3 26.0 - 35.0 pg NON-INTERFACE D (ONBASE SCANS) MCHC (External) 31.5 30.0 - 35.0 g/dL NON-INTERFACE D (ONBASE SCANS) RDW (External) 17.50(H) 11.40 - 16.10 % NON-INTERFACE D (ONBASE SCANS) Blood BLOOD SPECIMEN / Unknown 09/09/2023 10:13 AM CDT Narrative BREEZE PFT - 09/14/2023 1:59 PM CDT Verified by Caridad Kaye on 09/14/2023. us Conrado Evans MD LAB - BLOOD ORDERABLES E dited Result - Final Performing Organization Address City/[facility]/ZIP Co de Phone Number BREEZE PFT NON-INTERFACED (ONBASE SCANS) * (ABNORMAL) Basic metabolic panel (09/09/2023 10:13 AM CDT) Urea Nitrogen (External) 37.0(H) 7.0 - 17.0 mg/dL NON-INTERFACE D (ONBASE SCANS) Calcium (External) 9.2 8.4 - 10.2 mg/dL NON-INTERFACE D (ONBASE SCANS) Chloride (External) 120(H) 96 - 107 mmol/L NON-INTERFACE D (ONBASE SCANS) CO2 (External) 20(L) 22 - 30 mmol/L NON-INTERFACE D (ONBASE SCANS) Creatinine (External) 1.50(H) 0.66 - 1.25 mg/dL NON-INTERFACE D (ONBASE SCANS) Glucose (External) 87 74 - 100 mg/dL NON-INTERFACE D (ONBASE SCANS) Potassium (External) 4.4 3.5 - 5.1 mmol/L NON-INTERFACE D (ONBASE SCANS) Sodium (External) 146(H) 137 - 145 mmol/L NON-INTERFACE D (ONBASE SCANS) GFR Estimated (External) 40.2(L) >60.0 ml/min/1.7 3m2 NON-INTERFACE D (ONBASE SCANS) Blood BLOOD SPECIMEN / Unknown 09/09/2023 10:13 AM CDT Narrative BOBBY PFT - 09/14/2023 1:59 PM CDT Verified by Caridad Kaye on 09/14/2023. 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 The [place] Department of Health ([facility]) and CDC recommend that we screen this patient to prevent the spread of these organisms within our healthcare facility. Infection Prevention has placed orders for collecting a rectal swab for CP-DETENTION SERGEANT to evaluate if this patient is now a carrier. This patient was identified to have a low risk exposure in which case Contact Precautions are not necessary unless the patient tests positive. Screening is voluntary. Please notify Infection Prevention if the patient declines testing. Additional information and resources can be found on the Infection Prevention MDRO Sharepoint page. 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 Rule Out Parvovirus 09/28/2023 09/28/2023 10/05/19 11:41 PM CDT Assessment Noted Time PHQ-9 Depression Total Score: 18 023 10:27 AM FURNITURE DECALS INSPECTOR documented as of this encounter Care Teams Advertising Operations Coordinator Relationship Specialty Start Date End Date Robert Marley MD [facility] [address] [place] [address] PCP - General Family Practice 12/08/10 Tayo Lacey MD [facility] [address] [place] [address] Cardiology 08/30/14 Christopher Quiroga MD [facility] [address] [facility] 200 [place] [address] Oncology 07/02/16 Lance Simpson PA-C [address] [place] [address] [phone] Physician Informatics Consultant Physician Informatics Consultant 01/07/18 Sherri Kingston PA 909 [facility] [place] [address] Physician Informatics Consultant Physician Informatics Consultant 12/21/18 Delvin Bob MD [address] [place] [address] 250 [place] [address] Internal Medicine 11/11/19 Love Hernandez PA-C 6[address] [facility] S [facility] 500 [place], [place] [address] Physician Informatics Consultant Urology 12/01/22 Conrado Evans MD 717 [facility] [address] [address] Assigned Nephrology Provider 12/27/22 06/21/24 Love Hernandez PA-C [address] [facility] 500 [place], [place] [address] Assigned Surgical Provider 01/17/23 [place] [address] [place] [address] Assigned Gastroenterology Provider 07/23/23 Everardo Grant MD [address] [place] [address] Physician Infectious Diseases 09/23/23 Rey Billings MD [address] [place] [address] 198065 Assigned Infectious Disease Provider 10/23/23 Conrado Evans MD 717 [facility] [address] [address] Nephrology 08/25/24 Delvin Lopez MD 909 [place] [address] Nephrology 08/25/24 Carissa Putnam, RN [facility] 711 [place] [address] [facility] 10/10/24 documented as of this encounter
--- OUTSIDE RECORDS SUMMARY | 2024-10-13 08:55 | XMS_ITS | Encounter Summary ---
Author Organization [facility] Address [address] [place] [address] Care Team Providers Care Bone Puller Name Role Phone Robert Marley MD Primary Care Provider [phone] Berna Kruse MD Unavailable [phone] Roxanna Armas RN Unavailable [phone] Irish Kim RN Unavailable [phone] Chana Cheng MD Unavailable [phone] Anoop Garcia MD Unavailable Unavailable Barbara Carlson MD Unavailable Tayo Lacey MD Unavailable [phone] TuBasil shaikh MD Unavailable MagedCharleen MD Unavailable [phone] Olimpia Williamson RN Unavailable [phone] Rin Dewitt RN Unavailable [phone] Rin Dewitt RN Unavailable [phone] Qian Rodriguez MD Unavailable [phone] Sherri Kingston Unavailable [phone] Olimpia Williamson RN Unavailable [phone] Olimpia Williamson RN Unavailable [phone] Christopher Quiroga MD Unavailable Claudia Yousif RN Unavailable Lance Simpson PA-C Unavailable [phone] Olimpia Williamson RN Unavailable [phone] Sherri Kingston PA Unavailable [phone] Delvin Bob MD Unavailable Charleen Lynne MD Unavailable [phone] ChapaShakira tellez MD Unavailable Unav ailable Hernesto Zoltan ADRIANM Unavailable [phone] Lisbeth, Delvin England MD Unavailable Maximo Mathis DO Unavailable + Sherri Kingston Unavailable Pedro Winchester MD Unavailable [phone] ChapaShakira zelaya MD Unavailable Unav ailable Jovanni Dempsey MD Unavailable Jovanni Dempsey MD Unavailable Len Hooks MD Unavailable Delvin Bob MD Unavailable [phone] Love Hernandez-C Unavailable [phone] Conrado Evans MD Unavailable [phone] Love Hernandez PA-C Unavailable [phone] Gordy Nickerson MD Unavailable Everardo Grant MD Unavailable Rey Billings MD Unavailable [phone] Conrado Evans MD Unavailable [phone] Delvin Lopez MD Unavailable [phone] Carissa Putnam RN Unavailable [phone] Encounter Details Date Type Department Care Team (Late Contact Info) Description 03/27/2014 External Order Results [facility] 2[facility], [facility] [address] [address] [facility] 88 [place] [phone] Social History Tobacco Use Types Packs/Day Years Used Date Smoking Tobacco: Former Smokeless Tobacco: Never Alcohol Use Standard Drinks/Week Comments No 0 (1 standard drink = 0.6 oz pur e alcohol) Comments No Sex and Gender Information Value Date Recorded Sex Assigned at Not on file 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 Gender Identity Not on file Sexual Orientation Not on file Occupation Industry Job Start Date Job End Date Not on file Not on file Not on file Not on file documented as of this encounter Plan of Treatment Upcoming Encounters Date Type Department Care Team (Late Contact Info) Description 10/25/2024 10:00 AM CDT Virtual Visit [facility] [address] [place] [address] Edith Brito 10/26/2024 8:30 AM CDT Lab [facility] [address] [facility] 200 [place] [phone] Conrado Evasn MD [address] [place] [address] 353 [facility] 1932 [place] [address] documented as of this encounter Procedures Procedure Name Priority Date/Time Associated Diagnosis Comments EXTERNAL LAB RESULTS Routine 03/23/2014 8:40 AM COIL WINDER STRAP documented in this encounter Results * (ABNORMAL) TXP External Lab Result (03/23/2014 8:40 AM COIL WINDER STRAP) Mycophenolic Acid (External) <0.5(L) 1.0 - 3.5 ug/mL LABDE SCAN MPA Glucuronide (External) <5.0(L) 35.0 - 100.0 ug/mL LABDE SCAN Everolimus (External) 6.7 ng/mL LABDE SCAN WBC Count (External) 6.09 5.00 - 10.00 K/UL LABDE SCAN RBC Count (External) 3.94 3.90 - 5.03 M/UL LABDE SCAN Hemoglobin (External) 10.8(L) 12.0 - 15.3 gm/dl LABDE SCAN Hematocrit (External) 35.5 34.9 - 44.5 % LABDE SCAN MCV (External) 90 82 - 98 fl LABDE SCAN MCH (External) 27 27 - 34 pg LABDE SCAN MCHC (External) 30(L) 32 - 36 gm/dl LABDE SCAN Platelet Count (External) 294 150 - 450 k/ul LABDE SCAN % Neutrophils (External) 86.4(H) 50.0 - 70.0 % LABDE SCAN % Lymphocytes (External) 7.6(L) 25.0 - 45.0 % LABDE SCAN % Monocytes (External) 4.3 0.00 - 11.0 % LABDE SCAN % Eosinophils (External) 0.5 0.0 - 7.0 % LABDE SCAN % Basophils (External) 0.7 0.0 - 3.0 % LABDE SCAN Absolute Neutrophils (External) 5.27 1.70 - 7.00 k/ul LABDE SCAN Absolute Lymphocytes (External) 0.46(L) 0.90 - 2.90 k/ul LABDE SCAN Absolute Monocytes (External) 0.26(L) 0.30 - 0.90 k/ul LABDE SCAN Absolute Eosinophils (External) 0.05 0.00 - 0.50 k/ul LABDE SCAN Absolute Basophils (External) 0.04 0.00 - 0.20 k/ul LABDE SCAN % Immature Granulocytes (External) 0.2 % LABDE SCAN Absolute Granulocytes (External) 0.01 k/ul LABDE SCAN Calcium (External) 9.1 8.4 - 10.6 mg/dl LABDE SCAN Urea Nitrogen (External) 19 8 - 24 mg/dl LABDE SCAN Creatinine (External) 0.7 0.5 - 1.5 mg/dl LABDE SCAN Glucose (External) 91 60 - 115 mg/dl LABDE SCAN Sodium (External) 137 135 - 149 mmol/l LABDE SCAN Potassium (External) 3.7 3.6 - 5.1 mmol/l LABDE SCAN Chloride (External) 102 96 - 114 mmol/l LABDE SCAN CO2 (External) 26 20 - 32 mmol/l LABDE SCAN Amylase (External) 76 18 - 89 U/L LABDE SCAN Phosphorus (External) 2.1(L) 2.5 - 4.5 mg/dl LABDE SCAN Magnesium (External) 1.5 1.5 - 2.6 mg/dl LABDE SCAN Lipase Level (External) 282 23 - 300 u/L LABDE SCAN 03/23/2014 8:40 AM COIL WINDER STRAP Narrative BOBBY PFT - 03/27/2014 9:18 AM COIL WINDER STRAP Verified by Rylee Guzman on 03/27/2014. Verified by Rylee Guzman on 03/27/2014. us Patient Reported LABORATORY Edited Result - [...] the IP on-call for review. Meena Torres, [facility] Infection Prevention 07/11/2019 at 3:56 PM [...] Out COVID-19 04/19/2020 04/19/2020 04/19/2020 1:56 PM COIL WINDER STRAP Rule Out COVID-19 04/19/2020 04/20/2020 04/20/2020 6:34 AM COIL WINDER STRAP Rule Out COVID-19 12/15/2020 12/15/2020 12/15/2020 4:33 PM CDT Rule Out C-difficile 01/06/2021 01/08/2021 021 11:43 AM COIL WINDER STRAP Rule Out C-difficile 07/10/2021 07/10/2021 022 5:56 PM CDT Rule Out C-difficile 07/16/2023 07/16/2023 024 9:21 PM CDT Rule Out Parvovirus 07/16/2023 07/16/2023 07/19/19 24 12:29 PM CDT Parvovirus 07/16/2023 07/16/2023 10/03/2024 4:22 PM CDT [id number] Comment:This patient was exposed to a person with a known CP-SUPERVISOR HOME RESTORATION SERVICE and has the potential for having acquired this pathogen of concern. The [place] Department of Health ([facility]) and CDC recommend that we screen this patient to prevent the spread of these organisms within our healthcare facility. Infection Prevention has placed orders for collecting a rectal swab for CP-SUPERVISOR HOME RESTORATION SERVICE to evaluate if this patient is now a carrier. This patient was identified to have a low risk exposure in which case Contact Precautions are not necessary unless the patient tests positive. Screening is voluntary. Please notify Infection Prevention if the patient declines testing. Additional information and resources can be found on the Infection Prevention MDRO Sharepoint page. 08/04/2023 08/04/2023 02/02/2024 11:39 PM COIL WINDER STRAP Rule Out Parvovirus 09/28/2023 09/28/2023 10/05/19 24 11:41 PM CDT documented as of this encounter Care Teams Bone Puller Relationship Specialty Start Date End Date Robert Marley MD [facility] [id number] [place] [address] PCP - General Family Practice 12/08/10 Berna Kruse MD [facility] [address] [place] [address] Nephrology 07/15/12 05/25/14 Roxanna Armas, RN Registered Nurse Transplant 07/15/12 05/25/14 Irish Kim RN Registered Nurse Transplant 05/26/14 09/20/14 Chana Cheng MD [facility] [address] [place] [address] Nephrology 05/26/14 11/12/15 Anoop Garcia MD [facility] [address] [place] [address] Transplant 05/26/14 02/02/18 Barbara Carlson MD [address] [place] [phone] Referring Physician Nephrology 08/30/14 11/12/15 Tayo Lacey MD [address] [place] [phone] Cardiology 08/30/14 Basil Plummer MD [address] [place] [address] Neurology 05/09/15 04/23/16 Charleen Lynne MD 9 [place] [address] Oncology 06/14/15 12/19/18 Olimpia Williamson, RN Nurse Coordinator Oncology 06/14/15 04/23/16 Rin Dewitt RN Nurse Coordinator Neurology 07/24/15 04/23/16 Rin Dewitt RN Nurse Coordinator Neurology 10/25/15 10/12/17 Qian Rodriguez MD 717 [facility] 353 [place] [address] Nephrology 11/13/15 06/16/16 Sherri Kingston PA 420 [facility] 394 [place] [address] Physician Personnel Security Specialist Physician Personnel Security Specialist 03/20/16 Olimpia Williamson, RN Nurse Coordinator Oncology 06/26/16 06/26/16 Olimpia Williamson, RN Nurse Coordinator Oncology 06/26/16 06/16/18 Christopher Quiroga MD [facility] [address] [place], [place] [address] Oncology 07/02/16 Claudia Yousif, RN Nurse Coordinator Gastroenterology 02/09/17 09/16/22 Lance Simpson PA-C [address] [place] [address] Physician Personnel Security Specialist Physician Personnel Security Specialist 01/07/18 Olimpia Williamson, RN Specialty Electronic Gluing Machine Operator Hematology & Oncology 05/06/18 12/19/18 Sherri Kingston PA [address] [place] [address] Urology [place], [place] [address] Physician Personnel Security Specialist Physician Personnel Security Specialist 12/21/18 Delvin Bob MD [address] [place] [address] 112755 Internal Medicine 11/11/19 Charleen Lynne MD [address] [place] [address] 396245 Assigned Cancer Care Provider 12/23/19 03/23/21 Shakira Chapa MD INACTIVE IN ME OF 06/29/2020 Assigned Surgical Provider 12/23/19 07/14/20 Zoltan Eric DPM [address] [facility] [address] [place] [address] Assigned Musculoskeletal Provider 12/23/19 07/26/21 Delvin Bob MD [address] [place] [address] [id number] Assigned PCP 12/08/19 02/14/22 Maximo Mathis DO [address] [place] [address] Assigned Neuroscience Provider 02/12/20 08/09/21 Sherri Kingston PA 909 [facility] Urology [place], [place] [address] Assigned Surgical Provider 07/15/20 10/06/20 Pedro Winchester MD [address] [place] [id number] Assigned Heart and Vascular Provider 08/05/20 01/31/22 Shakira Chapa MD INACTIVE IN [place] OF 06/29/2020 Assigned Surgical Provider 10/07/20 10/13/20 Jovanni Dempsey MD 600 [place], [place] 9439[address] Assigned Nephrology Provider 03/24/21 03/14/22 Jovanni Depmsey MD 600 [place], [place] 307882 Assigned Nephrology Provider 03/15/22 03/21/22 Len Hooks MD 717 [facility] 353 [place] [address] Assigned Nephrology Provider 03/22/22 12/26/22 Delvin Bob MD [address] [facility] 250 [place], [place] [address] Assigned PCP 04/26/22 12/12/22 Love Hernandez PA-C [address] [facility] 500 [place] [address] Physician Personnel Security Specialist Urology 12/01/22 Conrado Evans MD [address] [place] [address] Assigned Nephrology Provider 12/27/22 06/21/24 Love Hernandez PA-C 6363 [facility] 500 [place], [place] [address] Assigned Surgical Provider 01/17/23 [place] [address] [place] [address] 201449 Assigned Gastroenterology Provider 07/23/23 Everardo Grant MD [address] [place] [address] 155685 Physician Infectious Diseases 09/23/23 Rey Billings MD [address] [place] [address] [phone] Assigned Infectious Disease Provider 10/23/23 Conrado Evans MD [address] [place] [address] Nephrology 08/25/24 Delvin Lopez MD [address] [place] [address] [id number] Nephrology 08/25/24 Carissa Putnam, RN [facility] [address] [place] [address] Specialty Electronic Gluing Machine Operator Pharmacy 10/10/24 10/10/24 documented as of this encounter
--- OUTSIDE RECORDS SUMMARY | 2024-10-13 08:55 | XMS_ITS | Encounter Summary ---
Author Organization [facility] Address [address] [place] [address] Care Team Providers Care Health Safety Instructor Name Role Phone Robert Marley MD Primary Care Provider [phone] Tayo Lacey MD Unavailable [phone] Christopher Quiroga MD Unavailable Lance Simpson-C Unavailable Sherri Kingston Unavailable [phone] Delvin Bob MD Unavailable Love HernandezC Unavailable Conrado Evans MD Unavailable [phone] Love Hernandez-C Unavailable Gordy Nickerson MD Unavailable Everardo Grant MD Unavailable Rey Billings MD Unavailable [phone] Conrado Evans MD Unavailable Delvin Lopez MD Unavailable [phone] Carissa Putnam RN Unavailable [phone] Encounter Details Date Type Department Care Team (Late st Contact Info) Description 06/29/[address] [phone] Holly Hannah, BLOCKLAYER Social History Tobacco Use Types Packs/Day Years [...] on file Legal Sex Female 3:26 AM NEONATAL DOCTOR Gender Identity Not on file Sexual Orientation Not on file Occupation Industry Job Start Date Job End Date Not on file Not on file Not on file Not on file documented as of this encounter Plan of Treatment Upcoming Encounters Date Type Department Care Team (Late st Contact Info) Description 10/25/2024 10:00 AM CDT Virtual Visit [facility] [address] [place] [address] Edith Brito 10/26/2024 8:30 AM CDT Lab [facility] [address] [facility] 200 [place] [address] Conrado Evans MD 717 [facility] 353 [facility] [address] [place] [address] documented as of this encounter Visit Diagnoses Not on filedocumented in this encounter Additional Health Concerns 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 The [place] Department of Health ([facility]) and CDC recommend that we screen this patient to prevent the spread of these organisms within our healthcare facility. Infection Prevention has placed orders for collecting a rectal swab for CP-ORDER PROCESSING MANAGER to evaluate if this patient is now a carrier. This patient was identified to have a low risk exposure in which case Contact Precautions are not necessary unless the patient tests positive. Screening is voluntary. Please notify Infection Prevention if the patient declines testing. Additional information and resources can be found on the Infection Prevention MDRO Sharepoint page. 08/04/2023 08/04/2023 02/02/2024 11:39 PM NEONATAL DOCTOR Rule Out Parvovirus 09/28/2023 09/28/2023 10/05/19 11:41 PM CDT Assessment Noted Time PHQ-9 Depression Total Score: 18 023 10:27 AM NEONATAL DOCTOR documented as of this encounter Care Teams Health Safety Instructor Relationship Specialty Start Date End Date Robert Marley MD [facility] [id number] [place] [address] PCP - General Family Practice 12/08/10 Tayo Lacey MD [facility] [id number] [place] [address] Cardiology 08/30/14 Christopher Quiroga MD [facility] [address] [place], [place] [address] Oncology 07/02/16 Lance Simpson PA-C [address] [place] [address] [id number] Physician Log Preparer Physician Log Preparer 01/07/18 Sherri Kingston PA [address] [place] [address] [place]rology [place], [place] 3[address] Physician Log Preparer Physician Log Preparer 12/21/18 Delvin Bob MD [address] [place] [address] 250 [place] [address] Internal Medicine 11/11/19 Love Hernandez PA-C [facility] [facility] [address] [place] [address] Physician Log Preparer Urology 12/01/22 Conrado Evans MD [address] [place] [address] Assigned Nephrology Provider 12/27/22 06/21/24 Love Hernandez PA-C [address] [facility] 500 [place] [address] Assigned Surgical Provider 01/17/23 [place] [address] [place], [place] [address] Assigned Gastroenterology Provider 07/23/23 Everardo Grant MD [address] [place] [address] Physician Infectious Diseases 09/23/23 Rey Billings MD [address] [place] [address] [id number] Assigned Infectious Disease Provider 10/23/23 Conrado Evans MD [address] [place] [address] Nephrology 08/25/24 Delvin Lopez MD 9 [place], [place] [address] Nephrology 08/25/24 Carissa Putnam RN [facility] 7[address] [place] [address] Specialty Seismograph Operator Pharmacy 10/10/24 documented as of this encounter
--- OUTSIDE RECORDS SUMMARY | 2024-10-13 08:55 | XMS_ITS | Encounter Summary ---
Author Organization [facility] Address [address] [place] [address] Care Team Providers Care Roll Former Name Role Phone Robert Marley MD Primary Care Provider [phone] Berna Kruse MD Unavailable [phone] Roxanna Armas RN Unavailable [phone] Irish Kim RN Unavailable [phone] Chana Cheng MD Unavailable [phone] Anoop Garcia MD Unavailable Unavailable Barbara Carlson MD Unavailable Tayo Lacey MD Unavailable [phone] TuBasil shaikh MD Unavailable MagedCharleen MD Unavailable [phone] Olimpia Williamson RN Unavailable [phone] Rin Dewitt RN Unavailable [phone] Rin Dewitt RN Unavailable [phone] Qian Rodriguez MD Unavailable [phone] Sherri Kingston Unavailable [phone] Olimpia Williamson RN Unavailable [phone] Olimpia Williamson RN Unavailable [phone] Christopher Quiroga MD Unavailable Claudia Yousif RN Unavailable Lance Simpson PA-C Unavailable Olimpia Williamson RN Unavailable [phone] Sherri Kingston PA Unavailable Delvin Bob MD Unavailable Charleen Lynne MD Unavailable [phone] ChapaShakira tellez MD Unavailable Unav ailable Hernesto Zoltan ADRIANM Unavailable [phone] Lisbeth, Delvin England MD Unavailable Maximo Mathis DO Unavailable + Sherri Kingston Unavailable Pedro Winchester MD Unavailable [phone] ChapaShakira zelaya MD Unavailable Unav ailable Jovanni Dempsey MD Unavailable [phone] Jovanni Dempsey MD Unavailable [phone] Len Hooks MD Unavailable Delvin Bob MD Unavailable [phone] Love Hernandez-C Unavailable [phone] Conrdao Evans MD Unavailable [phone] Love Hernandez PA-C Unavailable [phone] Gordy Nickerson MD Unavailable Everardo Grant MD Unavailable Rey Billings MD Unavailable [phone] Conrado Evans MD Unavailable Delvin Lopez MD Unavailable [phone] Carissa Putnam RN Unavailable [phone] Encounter Details Date Type Department Care Team (Late Contact Info) Description 04/18/2014 External Order Results [facility] 2nd Floor, Clinic [address] 516 [facility] 88 [place] [phone] Social History Tobacco Use Types Packs/Day Years Used Date Smoking Tobacco: Former Smokeless Tobacco: Never Alcohol Use Standard Drinks/Week Comments No 0 (1 standard drink = 0.6 oz pur e alcohol) Comments No Sex and Gender Information Value Date Recorded Sex Assigned at Not on file Legal Sex Female 3:26 AM FIBERGLASS LUGGAGE MOLDER Gender Identity Not on file Sexual Orientation Not on file Occupation Industry Job Start Date Job End Date Not on file Not on file Not on file Not on file documented as of this encounter Plan of Treatment Upcoming Encounters Date Type Department Care Team (Late Contact Info) Description 10/25/2024 10:00 AM CDT Virtual Visit [facility] [address] [place] [address] Edith Brito 10/26/2024 8:30 AM CDT Lab [facility] [address] [facility] 200 [place] [phone] Conrado Evans MD [address] [place] [address] 353 [facility] 1932 [place] [address] documented as of this encounter Procedures Procedure Name Priority Date/Time Associated Diagnosis Comments EXTERNAL LAB RESULTS Routine 04/17/2014 9:15 AM FIBERGLASS LUGGAGE MOLDER documented in this encounter Results * (ABNORMAL) TXP External Lab Result (04/17/2014 9:15 AM FIBERGLASS LUGGAGE MOLDER) WBC Count (External) 4.63(L) 5.0 - 10.0 K/UL LABDE SCAN RBC Count (External) 3.57(L) 3.9 - 5.03 M/UL LABDE SCAN Hemoglobin (External) 9.7(L) 12.0 - 15.5 g/dL LABDE SCAN Hematocrit (External) 31.4(L) 34.9 - 44.5 % LABDE SCAN MCV (External) 88 82 - 98 fL LABDE SCAN MCH (External) 27 27 - 34 pg LABDE SCAN MCHC (External) 31(L) 32 - 36 g/dL LABDE SCAN Platelet Count (External) 178 150 - 450 K/UL LABDE SCAN % Neutrophils (External) 85.5(H) 50.0 - 70.0 % LABDE SCAN % Lymphocytes (External) 8.0(L) 25.0 - 45.0 % LABDE SCAN % Monocytes (External) 5.0 0.0 - 11.0 % LABDE SCAN % Eosinophils (External) 0.9 0.0 - 7.0 % LABDE SCAN % Basophils (External) 0.4 0.0 - 3.0 % LABDE SCAN Absolute Neutrophils (External) 3.96 1.7 - 7.0 K/UL LABDE SCAN Absolute Lymphocytes (External) 0.37(L) 0.9 - 2.9 K/UL LABDE SCAN Absolute Monocytes (External) 0.23(L) 0.3 - 0.9 K/UL LABDE SCAN Absolute Eosinophils (External) 0.04 0.0 - 0.5 K/UL LABDE SCAN Absolute Basophils (External) 0.02 0.0 - 0.2 K/UL LABDE SCAN Glucose (External) 77 60 - 115 mg/dL LABDE SCAN Urea Nitrogen (External) 26(H) 5 - 24 mg/dL LABDE SCAN Creatinine (External) 1.1 0.5 - 1.5 mg/dL LABDE SCAN Sodium (External) 144 135 - 149 mmol/L LABDE SCAN Potassium (External) 3.1(L) 3.6 - 5.1 mmol/L LABDE SCAN Chloride (External) 104 96 - 114 mmol/L LABDE SCAN CO2 (External) 31 20 - 32 mmol/L LABDE SCAN Calcium (External) 8.3(L) 8.4 - 10.6 mg/dL LABDE SCAN Phosphorus (External) 3.5 2.5 - 4.5 mg/dL LABDE SCAN Magnesium (External) 1.1(L) 1.5 - 2.6 mg/dL LABDE SCAN Amylase (External) 59 18 - 89 U/L LABDE SCAN Lipase Level (External) 117 23 - 300 U/L LABDE SCAN 04/17/2014 9:15 AM FIBERGLASS LUGGAGE MOLDER Narrative BOBBY PFT - 04/18/2014 10:21 AM FIBERGLASS LUGGAGE MOLDER Verified by Guerrero Pinzon on 04/18/2014. us Patient Reported LABORATORY Edited Result - [...] the IP on-call for review. 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 Rule Out COVID-19 04/19/2020 04/19/2020 04/19/2020 1:56 PM FIBERGLASS LUGGAGE MOLDER Rule Out COVID-19 04/19/2020 04/20/2020 04/20/2020 6:34 AM FIBERGLASS LUGGAGE MOLDER Rule Out COVID-19 12/15/2020 12/15/2020 12/15/2020 4:33 PM CDT Rule Out C-difficile 01/06/2021 01/08/2021 021 11:43 AM FIBERGLASS LUGGAGE MOLDER Rule Out C-difficile 07/10/2021 07/10/2021 022 5:56 PM CDT Rule Out C-difficile 07/16/2023 07/16/2023 024 9:21 PM CDT Rule Out Parvovirus 07/16/2023 07/16/2023 07/19/19 24 12:29 PM CDT Parvovirus 07/16/2023 07/16/2023 10/03/2024 4:22 PM CDT [id number] Comment:This patient was exposed to a person with a known CP-CAREER TRANSITION SPECIALIST and has the potential for having acquired this pathogen of concern. The [place] Department of Health ([facility]) and CDC recommend that we screen this patient to prevent the spread of these organisms within our healthcare facility. Infection Prevention has placed orders for collecting a rectal swab for CP-CAREER TRANSITION SPECIALIST to evaluate if this patient is now a carrier. This patient was identified to have a low risk exposure in which case Contact Precautions are not necessary unless the patient tests positive. Screening is voluntary. Please notify Infection Prevention if the patient declines testing. Additional information and resources can be found on the Infection Prevention MDRO Sharepoint page. 08/04/2023 08/04/2023 02/02/2024 11:39 PM FIBERGLASS LUGGAGE MOLDER Rule Out Parvovirus 09/28/2023 09/28/2023 10/05/19 24 11:41 PM CDT documented as of this encounter Care Teams Roll Former Relationship Specialty Start Date End Date Robert Marley MD [facility] [address] [place] [address] PCP - General Family Practice 12/08/10 Berna Kruse MD [facility] [address] [place] [address] Nephrology 07/15/12 05/25/14 Roxanna Armas, RN Registered Nurse Transplant 07/15/12 05/25/14 Irish Kim RN Registered Nurse Transplant 05/26/14 09/20/14 Chana Cheng MD [facility] [address] [place] [address] Nephrology 05/26/14 11/12/15 Anoop Garcia MD [facility] [address] [place] [address] Transplant 05/26/14 02/02/18 Barbara Carlson MD [address] [place] [address] Referring Physician Nephrology 08/30/14 11/12/15 Tayo Lacey MD [address] [place] [address] Cardiology 08/30/14 Basil Plummer MD [address] [place] [address] Neurology 05/09/15 04/23/16 Charleen Lynne MD [address] [place] [address] Oncology 06/14/15 12/19/18 Olimpia Williamson, RN Nurse Coordinator Oncology 06/14/15 04/23/16 Rin Dewitt RN Nurse Coordinator Neurology 07/24/15 04/23/16 Rin Dewitt RN Nurse Coordinator Neurology 10/25/15 10/12/17 Qian Rodriguez MD 717 [facility] 353 [place], [place] 4[address] Nephrology 11/13/15 06/16/16 Sherri Kingston PA 420 [facility] 394 [place], [place] [address]86[address] Physician Maintenance And Repair Worker Physician Maintenance And Repair Worker 03/20/16 Olimpia Williamson, RN Nurse Coordinator Oncology 06/26/16 06/26/16 Olimpia Williamson, SONIA Nurse Coordinator Oncology 06/26/16 06/16/18 Christopher Quiroga MD [facility] [address] [facility] 200 [place], [place] [address] MD Oncology 07/02/16 Claudia Yousif, RN Nurse Coordinator Gastroenterology 02/09/17 09/16/22 Lance Simpson PA-C 909 [place] [address] Physician Maintenance And Repair Worker Physician Maintenance And Repair Worker 01/07/18 Olimpia Williamson, SONIA Specialty Qa Analyst Hematology & Oncology 05/06/18 12/19/18 Sherri Kingston PA [address] [place], [place] [address]y [place] [address] Physician Maintenance And Repair Worker Physician Maintenance And Repair Worker 12/21/18 Delvin Bob MD 420 [facility] 250 [place] [address] Internal Medicine 11/11/19 Charleen Lynne MD [address] [place] [address] [id number] Assigned Cancer Care Provider 12/23/19 03/23/21 Shakira Chapa MD [place] [place] 06/29/2020 Assigned Surgical Provider 12/23/19 07/14/20 Zoltan Eric DPM [address] [facility] [address] [place] [address] Assigned Musculoskeletal Provider 12/23/19 07/26/21 Delvin Bob MD [address] [place] [address] Assigned PCP 12/08/19 02/14/22 Maximo Mathis DO [address] [place] [address] Assigned Neuroscience Provider 02/12/20 08/09/21 Sherri Kingston PA [address] [place] [address] Assigned Surgical Provider 07/15/20 10/06/20 Pedro Winchester MD [address] [place], [place] 8[address]25 Assigned Heart and Vascular Provider 08/05/20 01/31/22 Shakira Chapa MD [place]CTIVE IN [place] OF 06/29/2020 Assigned Surgical Provider 10/07/20 10/13/20 Jovanni Dempsey MD 600 [place] [address] Assigned Nephrology Provider 03/24/21 03/14/22 Jovanni Dempsey MD 600 [place], [place] 152822 Assigned Nephrology Provider 03/15/22 03/21/22 Len Hooks MD 717 [facility] [address] [place], [place] [address] Assigned Nephrology Provider 03/22/22 12/26/22 Delvin Bob MD 420 [facility] 250 [place] [address] Assigned PCP 04/26/22 12/12/22 Love Hernandez PAJosseC [address] [place] [address] Physician Maintenance And Repair Worker Urology 12/01/22 Conrado Evans MD 717 [facility] [address] [facility] [address] [place] [address] Assigned Nephrology Provider 12/27/22 06/21/24 FerLove freeman PA-C 6363 [facility] 500 [place], [place] [address] Assigned Surgical Provider 01/17/23 [place] [address] [address] [place], [place] [address] Assigned Gastroenterology Provider 07/23/23 Everardo Grant MD 909 [place], [place] 58[address] Physician Infectious Diseases 09/23/23 Rey Billings MD [address] [place] [address] [id number] Assigned Infectious Disease Provider 10/23/23 Conrado Evans MD 717 [facility] 353 [facility] [address] [place], [place] [address] Nephrology 08/25/24 Delvin Lopez MD [address] [place] [address] 252785 Nephrology 08/25/24 Carissa Putnam RN [facility] [address] [place] [address] 446294 Specialty Qa Analyst Pharmacy 10/10/24 10/10/24 documented as of this encounter
--- OUTSIDE RECORDS SUMMARY | 2024-10-13 08:55 | XMS_ITS | Encounter Summary ---
Author Organization [facility] Address [address] [place] [address] Care Team Providers Care Sand Carrier Name Role Phone Robert Marley MD Primary Care Provider [phone] Berna Kruse MD Unavailable [phone] Roxanna Armas RN Unavailable +[phone] Irish Kim RN Unavailable [phone] Chana Cheng MD Unavailable [phone] Anoop Garcia MD Unavailable Unavailable Barbara Carlson MD Unavailable Tayo Lacey MD Unavailable [phone] TuBasil shaikh MD Unavailable MagedCharleen MD Unavailable +[phone] Olimpia Williamson RN Unavailable [phone] Rin Dewitt RN Unavailable [phone] Rin Dewitt RN Unavailable [phone] Qian Rodriguez MD Unavailable [phone] Sherri Kingston Unavailable +[phone] Olimpia Williamson RN Unavailable [phone] Olimpia Williamson RN Unavailable [phone] Christopher Quiroga MD Unavailable Claudia Yousif RN Unavailable Lance Simpson PA-C Unavailable Olimpia Williamson RN Unavailable [phone] Sherri Kingston PA Unavailable [phone] Delvin Bob MD Unavailable +[phone] Charleen Lynne MD Unavailable +[phone] ChaapShakira tellez MD Unavailable Unav ailable Hernesto Zoltan ADRIANM Unavailable +[phone] Lisbeth, Delvin England MD Unavailable +[phone] Maximo Mathis DO Unavailable + Sherri Kingston Unavailable Pedro Winchester MD Unavailable +[phone] ChapaShakira zelaya MD Unavailable Unav ailable Jovanni Dempsey MD Unavailable +[phone] Jovanni Dempsey MD Unavailable Len Hooks MD Unavailable Delvin Bob MD Unavailable +[phone] Love Hernandez-C Unavailable [phone] Conrado Evans MD Unavailable +[phone] Love Hernandez PA-C Unavailable [phone] Gordy Nickerson MD Unavailable [phone] Everardo Grant MD Unavailable Rey Billings MD Unavailable [phone] Conrado Evans MD Unavailable Delvin Lopez MD Unavailable [phone] Carissa Putnam RN Unavailable [phone] Encounter Details Date Type Department Care Team (Late Contact Info) Description 04/12/2014 External Order Results [facility] 2[facility] 6 [facility] [address] [place] [phone] Social History Tobacco Use Types Packs/Day Years Used Date Smoking Tobacco: Former Smokeless Tobacco: Never Alcohol Use Standard Drinks/Week Comments No 0 (1 standard drink = 0.6 oz pur e alcohol) Comments No Sex and Gender Information Value Date Recorded Sex Assigned at Not on file Legal Sex Female 3:26 AM COMPLETION MANAGER Gender Identity Not on file Sexual Orientation Not on file Occupation Industry Job Start Date Job End Date Not on file Not on file Not on file Not on file documented as of this encounter Plan of Treatment Upcoming Encounters Date Type Department Care Team ([facility] Contact Info) Description 10/25/2024 10:00 AM CDT Virtual Visit [facility] & [facility] [address] [place] [address] Edith Brito 10/26/2024 8:30 AM CDT Lab [facility] Center [facility] [address] [facility] 200 [place] [phone] Conrado Evans MD [address] [place] [address] 353 [facility] [address] [place] [address] documented as of this encounter Visit Diagnoses [...] the IP on-call for review. Meena Torres, [facility] Infection Prevention 07/11/2019 at 3:56 PM 07/11/2019 07/11/2019 09/23/2019 10:03 AM CDT Rule Out COVID-19 07/24/2019 07/24/2019 07/25/2019 5:33 AM CDT 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, 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 09/23/2019 09/23/201903/2019 11:12 AM CDT Rule Out COVID-19 09/27/2019 09/27/2019 09/27/2019 3:20 PM CDT VRE-Standard Precautions 11/01/2019 11/01/2019 5:40 PM CDT 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, 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 Rule Out COVID-19 04/19/2020 04/19/2020 04/19/2020 1:56 PM COMPLETION MANAGER Rule Out COVID-19 04/19/2020 04/20/2020 04/20/2020 6:34 AM COMPLETION MANAGER Rule Out COVID-19 12/15/2020 12/15/2020 12/15/2020 4:33 PM CDT Rule Out C-difficile 01/06/2021 01/08/2021 021 11:43 AM COMPLETION MANAGER Rule Out C-difficile 07/10/2021 07/10/2021 022 5:56 PM CDT Rule Out C-difficile 07/16/2023 07/16/2023 024 9:21 PM CDT Rule Out Parvovirus 07/16/2023 07/16/2023 07/19/19 24 12:29 PM CDT Parvovirus 07/16/2023 07/16/2023 10/03/2024 4:22 PM CDT [id number] Comment:This patient was exposed to a person with a known CP-MANAGER DISASTER RECOVERY and has the potential for having acquired this pathogen of concern. The [place] Department of Health ([facility]) and CDC recommend that we screen this patient to prevent the spread of these organisms within our healthcare facility. Infection Prevention has placed orders for collecting a rectal swab for CP-MANAGER DISASTER RECOVERY to evaluate if this patient is now a carrier. This patient was identified to have a low risk exposure in which case Contact Precautions are not necessary unless the patient tests positive. Screening is voluntary. Please notify Infection Prevention if the patient declines testing. Additional information and resources can be found on the Infection Prevention MDRO Sharepoint page. 08/04/2023 08/04/2023 02/02/2024 11:39 PM COMPLETION MANAGER Rule Out Parvovirus 09/28/2023 09/28/2023 10/05/19 11:41 PM CDT documented as of this encounter Care Teams Sand Carrier Relationship Specialty Start Date End Date Robert Marley MD [address] [address] PCP - General Family Practice 12/08/10 Berna Kruse MD [facility] [address] [place] [address] Nephrology 07/15/12 05/25/14 Roxanna Armas RN Registered Nurse Transplant 07/15/12 05/25/14 Irish Kim RN Registered Nurse Transplant 05/26/14 09/20/14 Chana Cheng MD [address] [address] Nephrology 05/26/14 11/12/15 Anoop Garcia MD [address] [address] Transplant 05/26/14 02/02/18 Barbara Carlson MD [address] [place] [address] Referring Physician Nephrology 08/30/14 11/12/15 Tayo Lacey MD [address] [place] [address] Cardiology 08/30/14 Basil Plummer MD [address] [place] [address] 965375 Neurology 05/09/15 04/23/16 Charleen Lynne MD [address] [place] [address] [id number] MD Oncology 06/14/15 12/19/18 Olimpia Williamson, RN Nurse Coordinator Oncology 06/14/15 04/23/16 Rin Dewitt, RN Nurse Coordinator Neurology 07/24/15 04/23/16 Rin Dewitt, RN Nurse Coordinator Neurology 10/25/15 10/12/17 Qian Rodriguez MD 717 [facility] 353 [place], [place] [address] Nephrology 11/13/15 06/16/16 Sherri Kingston PA 420 [facility] 394 [place], [place] [address] Physician Plant Pathologist Physician Plant Pathologist 03/20/16 Olimpia Williamson, RN Nurse Coordinator Oncology 06/26/16 06/26/16 Olimpia Williamson, RN Nurse Coordinator Oncology 06/26/16 06/16/18 Christopher Quiroga MD [facility] [address] [place], [place] [address] MD Oncology 07/02/16 Claudia Yousif RN Nurse Coordinator Gastroenterology 02/09/17 09/16/22 Lance Simpson PA-C [address] [place] [id number] Physician Plant Pathologist Physician Plant Pathologist 01/07/18 Olimpia Williamson, SONIA Specialty Brick Machine Operator Hematology & Oncology 05/06/18 12/19/18 Sherri Kingston PA [address] [place] [address] Urology [place], [place] [phone] Physician Plant Pathologist Physician Plant Pathologist 12/21/18 Delvin Bob MD [address] [place] [address] 250 [place], [place] [phone] Internal Medicine 11/11/19 Charleen Lynne MD [address] [place] [address] Assigned Cancer Care Provider 12/23/19 03/23/21 Shakira Chapa MD INACTIVE IN [place] OF 06/29/2020 Assigned Surgical Provider 12/23/19 07/14/20 Zoltan Eric DPM [address] [facility] [address] [place] [address] Assigned Musculoskeletal Provider 12/23/19 07/26/21 Delvin Bob MD 420 [facility] 250 [place] [address] Assigned PCP 12/08/19 02/14/22 Maximo Mathis DO 909 [place] [address] Assigned Neuroscience Provider 02/12/20 08/09/21 Sherri Kingston PA 909 [facility] Urology [place], [place] 5750[address] Assigned Surgical Provider 07/15/20 10/06/20 Pedro Winchester MD [address] [place] [address] Assigned Heart and Vascular Provider 08/05/20 01/31/22 Shakira Chapa MD INACTIVE IN [place] OF 06/29/2020 Assigned Surgical Provider 10/07/20 10/13/20 Jovanni Dempsey MD 600 [place] [address] Assigned Nephrology Provider 03/24/21 03/14/22 Jovanni Dempsey MD 600 [place] [address] Assigned Nephrology Provider 03/15/22 03/21/22 Len Hooks MD 717 [facility] 353 [place] [address] Assigned Nephrology Provider 03/22/22 12/26/22 Delvin Bob MD [address] [place] [address] 250 [place] [address] Assigned PCP 04/26/22 12/12/22 Love Hernandez PA-C [address] [facility] 500 [place], [place] [address] Physician Plant Pathologist Urology 12/01/22 Conrado Evans MD 717 [facility] 353 [facility] [address] [place] [address] Assigned Nephrology Provider 12/27/22 06/21/24 Love Hernandez PA-C [address] [facility] 500 [place], [place] [address] Assigned Surgical Provider 01/17/23 [place] [address] [place] [address] Assigned Gastroenterology Provider 07/23/23 Everardo Grant MD 909 [place], [place] [address] Physician Infectious Diseases 09/23/23 Rey Billings MD [address] [place] [address] Assigned Infectious Disease Provider 10/23/23 Conrado Evans MD 717 [facility] [place] [address] [facility] [address] [place] [address] Nephrology 08/25/24 Delvin Lopez MD 909 [place], [place] 8[address] Nephrology 08/25/24 Carissa Putnam RN [facility] 711 [place] [address] Specialty Brick Machine Operator Pharmacy 10/10/24 10/10/24 documented as of this encounter
--- OUTSIDE RECORDS SUMMARY | 2024-10-13 08:55 | XMS_ITS | Encounter Summary ---
Author Organization [facility] Address [address] [place] [address] Care Team Providers Care College Sports Assistant Name Role Phone Robert Marley MD Primary Care Provider [phone] Berna Kruse MD Unavailable [phone] Roxanna Armas RN Unavailable [phone] Irish Kim RN Unavailable [phone] Chana Cheng MD Unavailable [phone] Anoop Garcia MD Unavailable Unavailable Barbara Carlson MD Unavailable Tayo Lacey MD Unavailable [phone] TuBasil shaikh MD Unavailable MagedCharleen MD Unavailable [phone] Olimpia Williamson RN Unavailable [phone] Rni Dewitt RN Unavailable [phone] Rin Dewitt RN Unavailable [phone] Qian Rodriguez MD Unavailable [phone] Sherri Kingston Unavailable [phone] Olimpia Williamson RN Unavailable [phone] Olimpia Williamson RN Unavailable [phone] Christopher Quiroga MD Unavailable Claudia Yousif RN Unavailable Lance Simpson PA-C Unavailable +[phone] Olimpia Williamson RN Unavailable Sherri Kingston PA Unavailable Delvin Bob MD Unavailable Charleen Lynne MD Unavailable [phone] ChapaShakira tellez MD Unavailable Unav ailable Hernesto Zoltan ADRIANM Unavailable +[phone] Lisbeth, Delvin England MD Unavailable [phone] Maximo Mathis DO Unavailable + Sherri Kingston Unavailable [phone] Pedro Winchester MD Unavailable [phone] ChapaShakira zelaya MD Unavailable Unav ailable Jovanni Dempsey MD Unavailable Jovanni Dempsey MD Unavailable Len Hooks MD Unavailable Delvin Bob MD Unavailable [phone] Love Hernandez-C Unavailable [phone] Conrado Evans MD Unavailable [phone] Love Hernandez PA-C Unavailable [phone] Gordy Nickerson MD Unavailable Everardo Grant MD Unavailable Rey Billings MD Unavailable [phone] Conrado Evans MD Unavailable Delvin Lopez MD Unavailable [phone] Carissa Putnam RN Unavailable [phone] Encounter Details Date Type Department Care Team (Late Contact Info) Description 05/24/2014 External Order Results [facility] 2[facility], Clinic 2A [facility] Building [address] [facility] 88 [place] [phone] Social History Tobacco Use Types Packs/Day Years Used Date Smoking Tobacco: Former Smokeless Tobacco: Never Alcohol Use Standard Drinks/Week Comments No 0 (1 standard drink = 0.6 oz pur e alcohol) Comments No Sex and Gender Information Value Date Recorded Sex Assigned at Not on file Legal Sex Female 3:26 AM DIRECTOR CENTER Gender Identity Not on file Sexual Orientation Not on file Occupation Industry Job Start Date Job End Date Not on file Not on file Not on file Not on file documented as of this encounter Plan of Treatment Upcoming Encounters Date Type Department Care Team (Late Contact Info) Description 10/25/2024 10:00 AM CDT Virtual Visit [facility] & [facility] [address] [place] [address] Edith Brito 10/26/2024 8:30 AM CDT Lab [facility] Cancer Center [facility] [address] [facility] 200 [place] [address] Conrado Evans MD [address] [place] [address] 353 [facility] [address] [place] [address] documented as of this encounter Procedures Procedure Name Priority Date/Time Associated Diagnosis Comments EXTERNAL LAB RESULTS Routine 05/22/2014 8:20 AM CDT documented in this encounter Results * (ABNORMAL) TXP External Lab Result (05/22/2014 8:20 AM CDT) Lipase Level (External) 61 23 - 300.0 LABDE SCAN Magnesium (External) 1.3(L) 1.5 - 2.6 MG/DL LABDE SCAN Phosphorus (External) 3.1 2.5 - 4.5 MG/DL LABDE SCAN Amylase (External) 46 18 - 89 LABDE SCAN Chloride (External) 109 96 - 114 MmOL/L LABDE SCAN CO2 (External) 22 20 - 32 LABDE SCAN Potassium (External) 4.4 3.6 - 5.1 MMOL/L LABDE SCAN Sodium (External) 142 135 - 149 MMOL/L LABDE SCAN Glucose (External) 77 60 - 115 mg/dL LABDE SCAN Creatinine (External) 0.9 0.5 - 1.5 LABDE SCAN Urea Nitrogen (External) 13 5 - 24 LABDE SCAN Calcium (External) 9.2 8.4 - 10.6 LABDE SCAN Absolute Basophils (External) 0.04 0.00 - 0.20 K/UL LABDE SCAN Absolute Monocytes (External) 0.13(L) 0.30 - 0.90 LABDE SCAN Absolute Eosinophils (External) 0.04 0.00 - 0.50 LABDE SCAN Absolute Lymphocytes (External) 0.30(L) 0.90 - 2.90 LABDE SCAN Absolute Neutrophils (External) 3.23 1.70 - 7.00 LABDE SCAN % Basophils (External) 1.1 0.0 - 3.0 % LABDE SCAN % Eosinophils (External) 1.1 0.0 - 7.0 % LABDE SCAN % Monocytes (External) 3.5 0.00 - 11.0 % LABDE SCAN % Lymphocytes (External) 8.0(L) 25.0 - 45.0 % LABDE SCAN % Neutrophils (External) 86.3(H) 50.0 - 70.0 % LABDE SCAN Platelet Count (External) 218 150 - 450 K/UL LABDE SCAN MCHC (External) 31(L) 32 - 36 % LABDE SCAN MCH (External) 28 27 - 34 PG LABDE SCAN MCV (External) 91 82 - 98 FL LABDE SCAN Hematocrit (External) 32.4(L) 34.9 - 44.5 % LABDE SCAN Hemoglobin (External) 10.1(L) 12.0 - 15.5 GM/DL LABDE SCAN RBC Count (External) 3.56(L) 3.90 - 5.03 LABDE SCAN WBC Count (External) 3.74(L) 5.00 - 10.00 K/UL LABDE SCAN Everolimus (External) <1.0 ng/ml LABDE SCAN 05/22/2014 8:20 AM CDT Neeta ROSALES PFT - 05/24/2014 1:56 PM CDT Verified by Pao Oswald on 05/24/2014. Verified by Tayla Dodson on 05/24/2014. us Patient Reported LABORATORY Edited Result - [...] the IP on-call for review. Meena Torres [facility] Infection Prevention 07/11/2019 at 3:56 PM [...] Out COVID-19 04/19/2020 04/19/2020 04/19/2020 1:56 PM DIRECTOR CENTER Rule Out COVID-19 04/19/2020 04/20/2020 04/20/2020 6:34 AM DIRECTOR CENTER Rule Out COVID-19 12/15/2020 12/15/2020 12/15/2020 4:33 PM CDT Rule Out C-difficile 01/06/2021 01/08/2021 021 11:43 AM DIRECTOR CENTER Rule Out C-difficile 07/10/2021 07/10/2021 022 5:56 PM CDT Rule Out C-difficile 07/16/2023 07/16/2023 024 9:21 PM CDT Rule Out Parvovirus 07/16/2023 07/16/2023 07/19/19 24 12:29 PM CDT Parvovirus 07/16/2023 07/16/2023 10/03/2024 4:22 PM CDT [id number] Comment:This patient was exposed to a person with a known CP-CONSTRUCTION CONTROLLER and has the potential for having acquired this pathogen of concern. The [place] Department of Health ([facility]) and CDC recommend that we screen this patient to prevent the spread of these organisms within our healthcare facility. Infection Prevention has placed orders for collecting a rectal swab for CP-CONSTRUCTION CONTROLLER to evaluate if this patient is now a carrier. This patient was identified to have a low risk exposure in which case Contact Precautions are not necessary unless the patient tests positive. Screening is voluntary. Please notify Infection Prevention if the patient declines testing. Additional information and resources can be found on the Infection Prevention MDRO Sharepoint page. 08/04/2023 08/04/2023 02/02/2024 11:39 PM DIRECTOR CENTER Rule Out Parvovirus 09/28/2023 09/28/2023 10/05/19 24 11:41 PM CDT documented as of this encounter Care Teams College Sports Assistant Relationship Specialty Start Date End Date Robert Marley MD [facility] [address] [place] [address] PCP - General Family Practice 12/08/10 Berna Kruse MD [facility] [address] [place] [address] Nephrology 07/15/12 05/25/14 Roxanna Armas, RN Registered Nurse Transplant 07/15/12 05/25/14 Irish Kim RN Registered Nurse Transplant 05/26/14 09/20/14 Chana Cheng MD [facility] [address] [place] [address] Nephrology 05/26/14 11/12/15 Anoop Garcia MD [facility] [address] [place] [address] Transplant 05/26/14 02/02/18 Barbara Carlson MD [address] [place] [address] Referring Physician Nephrology 08/30/14 11/12/15 Tayo Lacey MD [address] [place] [address] Cardiology 08/30/14 Basil Plummer MD [address] [place] [address] Neurology 05/09/15 04/23/16 Charleen Lynne MD [address] [place] [address] Oncology 06/14/15 12/19/18 Olimpia Williamson, SONIA Nurse Coordinator Oncology 06/14/15 04/23/16 Rin Dewitt RN Nurse Coordinator Neurology 07/24/15 04/23/16 Rin Dewitt RN Nurse Coordinator Neurology 10/25/15 10/12/17 Qian Rodriguez MD 717 [facility] 353 [place], [place] [address] Nephrology 11/13/15 06/16/16 Sherri Kingston PA 420 [facility] 394 [place], [place] [address] Physician Mica Layer Physician Mica Layer 03/20/16 Olimpia Williamson, RN Nurse Coordinator Oncology 06/26/16 06/26/16 Olimpia Williamson, RN Nurse Coordinator Oncology 06/26/16 06/16/18 Christopher Quiroga MD [facility] [address] [facility] 200 [place] [address] MD Oncology 07/02/16 Claudia Yousif, RN Nurse Coordinator Gastroenterology 02/09/17 09/16/22 Lance Simpson PA-C 909 [place] [address] Physician Mica Layer Physician Mica Layer 01/07/18 Olimpia Williamson, RN Specialty Reinforcer Hematology & Oncology 05/06/18 12/19/18 Sherri Kingston PA [address] [place] [address] Physician Mica Layer Physician Mica Layer 12/21/18 Delvin Bob MD [address] [place] [address] Internal Medicine 11/11/19 Charleen Lynne MD [address] [place] [address] Assigned Cancer Care Provider 12/23/19 03/23/21 Shakira Chapa MD INACTIVE IN [place] OF 06/29/2020 Assigned Surgical Provider 12/23/19 07/14/20 Zoltan Eric [address]PM [address] [facility] 300 [place] [address] Assigned Musculoskeletal Provider 12/23/19 07/26/21 Delvin oBb MD [address] [place] [address] Assigned PCP 12/08/19 02/14/22 Maximo Mathis DO [address] [place] [address] Assigned Neuroscience Provider 02/12/20 08/09/21 Sherri Kingston PA [address] [place] [address] Assigned Surgical Provider 07/15/20 10/06/20 Pedro Winchester MD [address] [place] [address] Assigned Heart and Vascular Provider 08/05/20 01/31/22 Shakira Chapa MD INACTIVE IN [place] OF 06/29/2020 Assigned Surgical Provider 10/07/20 10/13/20 Jovanni Dempsey MD 600 [place], [place] [address]80[address] Assigned Nephrology Provider 03/24/21 03/14/22 Jovanni Dempsey MD 600 [place], [place] 707822 Assigned Nephrology Provider 03/15/22 03/21/22 Len Hooks MD 717 [facility] [place] [address] [place], [place] [address] Assigned Nephrology Provider 03/22/22 12/26/22 Delvin Bob MD 420 [facility] 250 [place] [address] Assigned PCP 04/26/22 12/12/22 Love Hernandez PA-C [address] [facility] [address] [place] 500 [place] [address] Physician Mica Layer Urology 12/01/22 Conrado Evans MD 717 [facility] [place] [facility] [address] [place], [place] [address] Assigned Nephrology Provider 12/27/22 06/21/24 Love Hernandez PA-C 6363 [facility] 500 [place], [place] [address] Assigned Surgical Provider 01/17/23 [place] [address] [address], [place] [address] Assigned Gastroenterology Provider 07/23/23 Everardo Grant MD 9 [place] [address] Physician Infectious Diseases 09/23/23 Rey Billings MD 9 [place] [address] Assigned Infectious Disease Provider 10/23/23 Conrado Evans MD 717 [facility] [address] [facility] [address] [place] [address] Nephrology 08/25/24 Delvin Lopez MD [address] [place] [address] Nephrology 08/25/24 Carissa Putnam RN [facility] 711 [place] [address] Specialty Reinforcer Pharmacy 10/10/24 10/10/24 documented as of this encounter
--- OUTSIDE RECORDS SUMMARY | 2024-10-13 08:55 | XMS_ITS | Encounter Summary ---
Author Organization [facility] Address [address] [place] [address] Care Team Providers Care Sales And Service Advisor Name Role Phone Robert Marley MD Primary Care Provider [phone] Berna Kruse MD Unavailable [phone] Roxanna Armas RN Unavailable [phone] Irish Kim RN Unavailable [phone] Chana Cheng MD Unavailable [phone] Anoop Garcia MD Unavailable Unavailable Barbara Carlson MD Unavailable Tayo Lacey MD Unavailable [phone] TuBasil shaikh MD Unavailable MagedCharleen MD Unavailable [phone] Olimpia Williamson RN Unavailable [phone] Rin Dewitt RN Unavailable [phone] Rin Dewitt RN Unavailable [phone] Qian Rodriguez MD Unavailable [phone] Sherri Kingston Unavailable [phone] Olimpia Williamson RN Unavailable [phone] Olimpia Williamson RN Unavailable [phone] Christopher Quiroga MD Unavailable Claudia Yousif RN Unavailable Lance Simpson PA-C Unavailable [phone] Olimpia Williamson RN Unavailable [phone] Sherri Kingston PA Unavailable [phone] Delvin Bob MD Unavailable Charleen Lynne MD Unavailable [phone] ChapaShakira tellez MD Unavailable Unav ailable Hernesto Zoltan ADRIANM Unavailable +[phone] Lisbeth, Delvin England MD Unavailable +[phone] Maximo Mathis DO Unavailable + Sherri Kingston Unavailable [phone] Pedro Winchester MD Unavailable [phone] ChapaShakira zelaya MD Unavailable Unav ailable Jovanni Dempsey MD Unavailable Jovanni Dempsey MD Unavailable [phone] Len Hooks MD Unavailable Delvin Bob MD Unavailable [phone] Love Hernandez-C Unavailable [phone] Conrado Evans MD Unavailable +[phone] Love Hernandez PA-C Unavailable [phone] Gordy Nickerson MD Unavailable Everardo rGant MD Unavailable Rey Billings MD Unavailable [phone] Conrado Evans MD Unavailable Delvin Lopez MD Unavailable [phone] Carissa Putnam RN Unavailable [phone] Encounter Details Date Type Department Care Team (Late Contact Info) Description 03/24/2014 External Order Results [facility] 2nd Floor, Clinic [address] [address] [facility] [address] [place] [phone] Social History Tobacco Use Types Packs/Day Years Used Date Smoking Tobacco: Former Smokeless Tobacco: Never Alcohol Use Standard Drinks/Week Comments No 0 (1 standard drink = 0.6 oz pur e alcohol) Comments No Sex and Gender Information Value Date Recorded Sex Assigned at Not on file Legal Sex Female 3:26 AM NURSING EDUCATION SPECIALIST Gender Identity Not on file Sexual Orientation Not on file Occupation Industry Job Start Date Job End Date Not on file Not on file Not on file Not on file documented as of this encounter Plan of Treatment Upcoming Encounters Date Type Department Care Team (Late Contact Info) Description 10/25/2024 10:00 AM CDT Virtual Visit [facility] [address] [place] [address] Edith Brito 10/26/2024 8:30 AM CDT Lab [facility] [address] [facility] [address] [place] [phone] Conrado Evans MD [address] [place] [address] 353 [facility] [address] [place] [address] documented as of this encounter Procedures Procedure Name Priority Date/Time Associated Diagnosis Comments EXTERNAL LAB RESULTS Routine 03/23/2014 8:40 AM NURSING EDUCATION SPECIALIST documented in this encounter Results * (ABNORMAL) TXP External Lab Result (03/23/2014 8:40 AM NURSING EDUCATION SPECIALIST) Calcium (External) 9.1 8.4 - 10.6 MG/DL LABDE SCAN Urea Nitrogen (External) 19 5 - 24 mg/dl LABDE SCAN Creatinine (External) 0.7 0.5 - 1.5 MG/DL LABDE SCAN Glucose (External) 91 60 - 115 LABDE SCAN Sodium (External) 137 135 - 149 MMOL/L LABDE SCAN Potassium (External) 3.7 3.6 - 5.1 MMOL LABDE SCAN Chloride (External) 102 96 - 114 MMOL/L LABDE SCAN CO2 (External) 26 20 - 32 mmol/l LABDE SCAN Amylase (External) 76 18 - 89 U/L LABDE SCAN Phosphorus (External) 2.1(L) 2.5 - 4.5 MG/DL LABDE SCAN Magnesium (External) 1.5 1.5 - 2.6 MG/DL LABDE SCAN Lipase Level (External) 282 23 - 300 U/L LABDE SCAN WBC Count (External) 6.09 5.00 - 10.00 K/UL LABDE SCAN Hemoglobin (External) 10.8(L) 12.0 - 15.5 GM/DL LABDE SCAN Hematocrit (External) 35.5 34.9 - 44.5 % LABDE SCAN MCV (External) 90 82 - 98 FL LABDE SCAN MCH (External) 27 27 - 34 PG LABDE SCAN MCHC (External) 30(L) 32 - 36 GM/DL LABDE SCAN Platelet Count (External) 294 150 - 450 K/UL LABDE SCAN % Neutrophils (External) 86.4(H) 50.0 - 70.0 % LABDE SCAN % Lymphocytes (External) 7.6(L) 25.0 - 45.0 % LABDE SCAN % Monocytes (External) 4.3 0.00 - 11.0 % LABDE SCAN % Basophils (External) 0.7 0.0 - 3.0 % LABDE SCAN Absolute Neutrophils (External) 5.27 0 - 7.00 K/UL LABDE SCAN Absolute Lymphocytes (External) 0.46(L) 0.90 - 2.90 K/UL LABDE SCAN Absolute Monocytes (External) 0.26(L) 0.30 - 0.90 K/UL LABDE SCAN % Immature Granulocytes (External) 0.2 % LABDE SCAN Absolute Immature Granulocytes (External) 0.01 K/UL LABDE SCAN 03/23/2014 8:40 AM NURSING EDUCATION SPECIALIST Narrative BOBBY NESBITT - 03/24/2014 7:59 AM NURSING EDUCATION SPECIALIST Verified by Florencia Capps on 03/24/2014. 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 Meena Torres [facility] Infection Prevention 07/11/2019 at 3:56 PM 07/11/2019 07/11/2019 09/23/2019 10:03 AM CDT Rule Out COVID-19 07/24/2019 07/24/2019 07/25/2019 5:33 AM CDT 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, 06/03/15 urine 09/23/2019 09/23/2019 09/03/2019 11:12 AM CDT Rule Out COVID-19 09/27/2019 09/27/2019 09/27/2019 3:20 PM CDT VRE-Standard Precautions 11/01/2019 11/01/2019 5:40 PM CDT 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, 06/03/15 urine 12/26/2019 12/26/2019 Rule Out COVID-19 04/19/2020 04/19/2020 04/19/2020 1:56 PM NURSING EDUCATION SPECIALIST Rule Out COVID-19 04/19/2020 04/20/2020 04/20/2020 6:34 AM NURSING EDUCATION SPECIALIST Rule Out COVID-19 12/15/2020 12/15/2020 12/15/2020 4:33 PM CDT Rule Out C-difficile 01/06/2021 01/08/2021 021 11:43 AM NURSING EDUCATION SPECIALIST Rule Out C-difficile 07/10/2021 07/10/2021 022 5:56 PM CDT Rule Out C-difficile 07/16/2023 07/16/2023 024 9:21 PM CDT Rule Out Parvovirus 07/16/2023 07/16/2023 07/19/19 24 12:29 PM CDT Parvovirus 07/16/2023 07/16/2023 10/03/2024 4:22 PM CDT [id number] Comment:This patient was exposed to a person with a known CP-HOUSECALLS NURSE and has the potential for having acquired this pathogen of concern. The [facility] ([facility]) and CDC recommend that we screen this patient to prevent the spread of these organisms within our healthcare facility. Infection Prevention has placed orders for collecting a rectal swab for CP-HOUSECALLS NURSE to evaluate if this patient is now a carrier. This patient was identified to have a low risk exposure in which case Contact Precautions are not necessary unless the patient tests positive. Screening is voluntary. Please notify Infection Prevention if the patient declines testing. Additional information and resources can be found on the Infection Prevention [employer] Sharepoint page. 08/04/2023 08/04/2023 02/02/2024 11:39 PM NURSING EDUCATION SPECIALIST Rule Out Parvovirus 09/28/2023 09/28/2023 10/05/19 24 11:41 PM CDT documented as of this encounter Care Teams Sales And Service Advisor Relationship Specialty Start Date End Date Robert Marley MD [facility] [id number] [place] [address] PCP - General Family Practice 12/08/10 Berna Kruse MD [facility] [address] [place] [address] Nephrology 07/15/12 05/25/14 Roxanna Armas, RN Registered Nurse Transplant 07/15/12 05/25/14 Irish Kim RN Registered Nurse Transplant 05/26/14 09/20/14 Chana Cheng MD [facility] [address] [place] [address] Nephrology 05/26/14 11/12/15 Anoop Garcia MD [facility] [address] [place] [address] Transplant 05/26/14 02/02/18 Barbara Carlson MD [address] [place] [phone] Referring Physician Nephrology 08/30/14 11/12/15 Tayo Lacey MD [address] [place] [phone] Cardiology 08/30/14 Basil Plummer MD [address] [place] [address] 623725 Neurology 05/09/15 04/23/16 Charleen Lynne MD [address] [place] [address] 396395 MD Oncology 06/14/15 12/19/18 Olimpia Williamson, SONIA Nurse Coordinator Oncology 06/14/15 04/23/16 Rin Dewitt RN Nurse Coordinator Neurology 07/24/15 04/23/16 Rin Dewitt RN Nurse Coordinator Neurology 10/25/15 10/12/17 Qian Rodriguez MD 717 [facility] 353 [place] [address] Nephrology 11/13/15 06/16/16 Sherri Kingston PA 420 [facility] [address] [place], [place] [phone] Physician Leasing Sales Consultant Physician Leasing Sales Consultant 03/20/16 Olimpia Williamson, RN Nurse Coordinator Oncology 06/26/16 06/26/16 Olimpia Williamson, RN Nurse Coordinator Oncology 06/26/16 06/16/[address] ONCOLOGY HEMATOLOGY 5 [facility] 200 [place] [address] Oncology 07/02/16 Claudia Yousif RN Nurse Coordinator Gastroenterology 02/09/17 09/16/22 Lance Simpson PA-C [address] [place], [place] [address] Physician Leasing Sales Consultant Physician Leasing Sales Consultant 01/07/18 Olimpia Williamson, RN Specialty Review Manager Hematology & Oncology 05/06/18 12/19/18 Sherri Kingston PA 909 [facility] Urology [place], [place] [address] Physician Leasing Sales Consultant Physician Leasing Sales Consultant 12/21/18 Delvin Bob MD 420 [facility] [address] [place] [address] Internal Medicine 11/11/19 Charleen Lynne MD [address] [place] [address] Assigned Cancer Care Provider 12/23/19 03/23/21 Shakira Chapa MD INACTIVE IN CT OF 06/29/2020 Assigned Surgical Provider 12/23/19 07/14/20 Zoltan Eric DPM [address] [facility] [address] [place] [address] Assigned Musculoskeletal Provider 12/23/19 07/26/21 Delvin Bob MD 420 [facility] [address] [place] [address] Assigned PCP 12/08/19 02/14/22 Maximo Mathis DO 9 [place] [address] Assigned Neuroscience Provider 02/12/20 08/09/21 Sherri Kingston PA [address] [place] [address] [place] [address] Assigned Surgical Provider 07/15/20 10/06/20 Pedro Winchester MD [address] [place] [address] Assigned Heart and Vascular Provider 08/05/20 01/31/22 Shakira Chapa MD INACTIVE IN CT OF 06/29/2020 Assigned Surgical Provider 10/07/20 10/13/20 Jovanni Dempsey MD [address] [place], [place] [address] Assigned Nephrology Provider 03/24/21 03/14/22 Jovanni Dempsey MD [address] [place], [place] 429402 Assigned Nephrology Provider 03/15/22 03/21/22 Len Hooks MD [address] [place] [address] [place], [place] [address] Assigned Nephrology Provider 03/22/22 12/26/22 Delvin Bob MD 420 [facility] [address] [place], [place] [address] Assigned PCP 04/26/22 12/12/22 Love Hernandez PA-C [address] [place] [address] [place], [place] [address] Physician Leasing Sales Consultant Urology 12/01/22 Conrado Evans MD [address] [place] [address] [facility] [address] [place], [place] [address] Assigned Nephrology Provider 12/27/22 06/21/24 Love Hernandez PA-C [address] [place] [address] [place], [place] [address] Assigned Surgical Provider 01/17/23 [place] [address] [place] [address], [place] [address] Assigned Gastroenterology Provider 07/23/23 Everardo Grant MD [address] [place] [address] Physician Infectious Diseases 09/23/23 Rey Billings MD [address] [place] [address] Assigned Infectious Disease Provider 10/23/23 Conrado Evans MD [address] [place] [address] 353 [facility] [address] [place] [address] Nephrology 08/25/24 Delvin Lopez MD [address] [place] [address] Nephrology 08/25/24 Carissa Putnam RN [facility] [address] [place] [address] Specialty Review Manager Pharmacy 10/10/24 10/10/24 documented as of this encounter
--- OUTSIDE RECORDS SUMMARY | 2024-10-13 08:55 | XMS_ITS | Encounter Summary ---
Author Organization [place] Address [address] [place] [address] Care Team Providers Care Behaviorist Name Role Phone Robert Marley MD Primary Care Provider [phone] Berna Kruse MD Unavailable [phone] Roxanna Armas RN Unavailable [phone] Irish Kim RN Unavailable +[phone] Chana Cheng MD Unavailable [phone] Anoop Garcia MD Unavailable Unavailable Barabra Carlson MD Unavailable Tayo Lacey MD Unavailable [phone] TuBasil shaikh MD Unavailable MagedCharleen MD Unavailable [phone] Olimpia Williamson RN Unavailable [phone] Rin Dewitt RN Unavailable [phone] Rin Dewitt RN Unavailable [phone] Qian Rodriguez MD Unavailable [phone] Sherri Kingston Unavailable [phone] Olimpia Williamson RN Unavailable [phone] Olimpia Williamson RN Unavailable [phone] Christopher Quiroga MD Unavailable Claudia Yousif RN Unavailable Lance Simpson PA-C Unavailable Olimpia Williamson RN Unavailable [phone] Sherri Kingston PA Unavailable Delvin Bob MD Unavailable [phone] Charleen Lynne MD Unavailable +[phone] ChapaShakira tellez MD Unavailable Unav ailable Hernesto Zoltan ADRIANM Unavailable +[phone] Lisbeth, Delvin England MD Unavailable +[phone] Maximo Mathis DO Unavailable + Sherri Kingston Unavailable Pedro Winchester MD Unavailable [phone] ChapaShakira zelaya MD Unavailable Unav ailable Jovanni Dempsey MD Unavailable Jovanni Dempsey MD Unavailable Len Hooks MD Unavailable Delvni Bob MD Unavailable [phone] Love Hernandez-C Unavailable [phone] Conrado Evans MD Unavailable +[phone] Love Hernandez PA-C Unavailable [phone] Gordy Nickerson MD Unavailable [phone] Everardo Grant MD Unavailable Rey Billings MD Unavailable [phone] Conrado Evans MD Unavailable [phone] Delvin Lopez MD Unavailable [phone] Carissa Putnam RN Unavailable [phone] Encounter Details Date Type Department Care Team (Late Contact Info) Description 05/08/2014 External Order Results [facility] Clinic 2A Linus [place]leon Building [address] [facility] 88 [place] [phone] Social History Tobacco Use Types Packs/Day Years Used Date Smoking Tobacco: Former Smokeless Tobacco: Never Alcohol Use Standard Drinks/Week Comments No 0 (1 standard drink = 0.6 oz pur e alcohol) Comments No Sex and Gender Information Value Date Recorded Sex Assigned at Not on file Legal Sex Female 3:26 AM FLOOR BROKER Gender Identity Not on file Sexual Orientation Not on file Occupation Industry Job Start Date Job End Date Not on file Not on file Not on file Not on file documented as of this encounter Plan of Treatment Upcoming Encounters Date Type Department Care Team (Late Contact Info) Description 10/25/2024 10:00 AM CDT Virtual Visit [facility] [address] [place] [address] Edith Brito 10/26/2024 8:[address] [facility] Cancer Center [facility] [address] [facility] 200 [place] [phone] Conrado Evans MD [address] [place] [address] 353 [facility] 1932 [place] [address] documented as of this encounter Procedures Procedure Name Priority Date/Time Associated Diagnosis Comments EXTERNAL LAB RESULTS Routine 05/08/2014 8:30 AM CDT documented in this encounter Results * (ABNORMAL) TXP External Lab Result (05/08/2014 8:30 AM CDT) Calcium (External) 8.9 8.4 - 10.6 MG/DL LABDE SCAN Urea Nitrogen (External) 14(L) 15 - 24 MG/DL LABDE SCAN Creatinine (External) 0.9 0.5 - 1.5 MG/DL LABDE SCAN Glucose (External) 87 60 - 115 mg/dL LABDE SCAN Sodium (External) 146 135 - 149 mmol/L LABDE SCAN Potassium (External) 2.7(L) 3.6 - 5.1 MMOL/L LABDE SCAN Chloride (External) 107 96 - 114 MMOL/L LABDE SCAN CO2 (External) 28 20 - 32 MMOL/L LABDE SCAN Amylase (External) 62 18 - 89 U/L LABDE SCAN Phosphorus (External) 3.0 2.5 - 4.5 MG/DL LABDE SCAN Magnesium (External) 1.2(L) 1.5 - 2.6 MG/DL LABDE SCAN Lipase Level (External) 109 23 - 300 U/L LABDE SCAN WBC Count (External) 3.70(L) 5.00 - 10.00 K/UL LABDE SCAN RBC Count (External) 3.45(L) 3.90 - 5.03 M/uL LABDE SCAN Hemoglobin (External) 9.6(L) 12.0 - 15.5 GM/DL LABDE SCAN Hematocrit (External) 30.9(L) 34.9 - 44.5 % LABDE SCAN MCV (External) 90 82 - 98 FL LABDE SCAN MCH (External) 28 27 - 34 PG LABDE SCAN MCHC (External) 31(L) 32 - 36 GM/DL LABDE SCAN Platelet Count (External) 218 150 - 450 K/UL LABDE SCAN % Neutrophils (External) 82.4(H) 50.0 - 70.0 % LABDE SCAN % Lymphocytes (External) 10.0(L) 25.0 - 45.0 % LABDE SCAN % Monocytes (External) 4.9 0.00 - 11.0 % LABDE SCAN % Eosinophils (External) 1.6 0.0 - 7.0 % LABDE SCAN % Basophils (External) 1.1 0.0 - 3.0 % LABDE SCAN Absolute Neutrophils (External) 3.05 1.70 - 7.00 K/UL LABDE SCAN Absolute Lymphocytes (External) 0.37(L) 0.90 - 2.90 K/UL LABDE SCAN Absolute Monocytes (External) 0.18(L) 0.30 - 0.90 K/UL LABDE SCAN Absolute Eosinophils (External) 0.06 0.00 - 0.50 K/UL LABDE SCAN Absolute Basophils (External) 0.04 0.00 - 0.20 K/UL LABDE SCAN % Immature Granulocytes (External) 0.0 % LABDE SCAN Absolute Immature Granulocytes (External) 0.00 K/UL LABDE SCAN 05/08/2014 8:30 AM CDT Narrative BOBBY PFT - 05/08/2014 3:08 PM CDT Verified by Rylee Guzman on 05/08/2014. us Patient Reported LABORATORY Edited Result - [...] the IP on-call for review. Meena Torres [facility] Infection Prevention 07/11/2019 at 3:56 PM 07/11/2019 07/11/2019 09/23/2019 10:03 AM CDT Rule Out COVID-19 07/24/2019 07/24/2019 07/25/2019 5:33 AM CDT 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, 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 09/23/2019 09/23/2019 09/03/2019 11:12 AM CDT Rule Out COVID-19 09/27/2019 09/27/2019 09/27/2019 3:20 PM CDT VRE-Standard Precautions 11/01/2019 11/01/2019 5:40 PM CDT 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, 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 Rule Out COVID-19 04/19/2020 04/19/2020 04/19/2020 1:56 PM FLOOR BROKER Rule Out COVID-19 04/19/2020 04/20/2020 04/20/2020 6:34 AM FLOOR BROKER Rule Out COVID-19 12/15/2020 12/15/2020 12/15/2020 4:33 PM CDT Rule Out C-difficile 01/06/2021 01/08/2021 021 11:43 AM FLOOR BROKER Rule Out C-difficile 07/10/2021 07/10/2021 022 5:56 PM CDT Rule Out C-difficile 07/16/2023 07/16/2023 024 9:21 PM CDT Rule Out Parvovirus 07/16/2023 07/16/2023 07/19/19 24 12:29 PM CDT Parvovirus 07/16/2023 07/16/2023 10/03/2024 4:22 PM CDT [id number] Comment:This patient was exposed to a person with a known CP-HAND POLISHER and has the potential for having acquired this pathogen of concern. The [place] Department of [facility] ([facility]) and CDC recommend that we screen this patient to prevent the spread of these organisms within our healthcare facility. Infection Prevention has placed orders for collecting a rectal swab for CP-HAND POLISHER to evaluate if this patient is now a carrier. This patient was identified to have a low risk exposure in which case Contact Precautions are not necessary unless the patient tests positive. Screening is voluntary. Please notify Infection Prevention if the patient declines testing. Additional information and resources can be found on the Infection Prevention MDRO Sharepoint page. 08/04/2023 08/04/2023 02/02/2024 11:39 PM FLOOR BROKER Rule Out Parvovirus 09/28/2023 09/28/2023 10/05/19 24 11:41 PM CDT documented as of this encounter Care Teams Behaviorist Relationship Specialty Start Date End Date Robert Marley MD [facility] [id number] [place] [address] PCP - General Family Practice 12/08/10 Berna Kruse MD [facility] [address] [place] [address] Nephrology 07/15/12 05/25/14 Roxanna Armas, RN Registered Nurse Transplant 07/15/12 05/25/14 Irish Kim, RN Registered Nurse Transplant 05/26/14 09/20/14 Chana Cheng MD [facility] [address] [place] [address] Nephrology 05/26/14 11/12/15 Anoop Garcia MD [facility] [address] [place] [address] Transplant 05/26/14 02/02/18 Barbara Carlson MD [address] [place] [phone] Referring Physician Nephrology 08/30/14 11/12/15 Tayo Lacey MD [address] [place] [address] Cardiology 08/30/14 Basil Plummer MD [address] [place] [address] Neurology 05/09/15 04/23/16 Charleen Lynne MD [address] [place] [address] MD Oncology 06/14/15 12/19/18 Olimpia Williamson, RN Nurse Coordinator Oncology 06/14/15 04/23/16 Rin Dewitt RN Nurse Coordinator Neurology 07/24/15 04/23/16 Rin Dewitt RN Nurse Coordinator Neurology 10/25/15 10/12/17 Qian Rodriguez MD 717 [facility] 353 [place], [place] [phone] Nephrology 11/13/15 06/16/16 Sherri Kingston PA 420 [facility] 394 [place], [place] [phone] Physician Community Arts Worker Physician Community Arts Worker 03/20/16 Olimpia Williamson, SONIA Nurse Coordinator Oncology 06/26/16 06/26/16 Olimpia Williamson, RN Nurse Coordinator Oncology 06/26/16 06/16/18 Christopher Quiroga MD [facility] [address] [facility] 200 [place], [place] 7[address] Oncology 07/02/16 Claudia Yousif, RN Nurse Coordinator Gastroenterology 02/09/17 09/16/22 Lance Simpson PA-C [address] [place], [place] [phone] Physician Community Arts Worker Physician Community Arts Worker 01/07/18 Olimpia Williamson, RN Specialty Operations Vice President Hematology & Oncology 05/06/18 12/19/18 Sherri Kingston PA [address] [place] [address] 331495 Physician Community Arts Worker Physician Community Arts Worker 12/21/18 Delvin Bob MD [address] [place] [address] 250 [place], [place] 074405 Internal Medicine 11/11/19 Charleen Lynne MD [address] [place] [address]125 Assigned Cancer Care Provider 12/23/19 03/23/21 Shakira Chapa MD [facility] 06/29/2020 Assigned Surgical Provider 12/23/19 07/14/20 Zoltan Eric DPM [address] [facility] [address] [place], [place] 8495[address] Assigned Musculoskeletal Provider 12/23/19 07/26/21 Delvin Bob MD [address] [place] [address] 250 [place], [place] 651165 Assigned PCP 12/08/19 02/14/22 Maximo Mathis DO [address] [place] [address] 395195 Assigned Neuroscience Provider 02/12/20 08/09/21 Sherri Kingston PA [address] [place] [address] Assigned Surgical Provider 07/15/20 10/06/20 Pedro Winchester MD [address] [place] 094135 Assigned Heart and Vascular Provider 08/05/20 01/31/22 Shakira Chapa MD [facility] 06/29/2020 Assigned Surgical Provider 10/07/20 10/13/20 Jovanni Dempsey MD 600 [place], [place] 775282 Assigned Nephrology Provider 03/24/21 03/14/22 Jovanni Dempsey MD 600 [place], [place] 441712 Assigned Nephrology Provider 03/15/22 03/21/22 Len Hooks MD [address] [place], [place] 237134 Assigned Nephrology Provider 03/22/22 12/26/22 Delvin Bob MD [address] [facility] [address] [place], [place] 4417[address] Assigned PCP 04/26/22 12/12/22 Love Hernandez PA-C [address] [place] [address] Physician Community Arts Worker Urology 12/01/22 Conrado Evans MD [address] [place] [facility] [address] [place], [place] 7458[address] Assigned Nephrology Provider 12/27/22 06/21/24 Love Hernandez PA-C 6363 [facility] 500 [place] [address] Assigned Surgical Provider 01/17/23 [place] [address] [address], [place] 409959 Assigned Gastroenterology Provider 07/23/23 Everardo Grant MD [address] [place] [address] [phone] Physician Infectious Diseases 09/23/23 Rey Billings MD [address] [place] [address] [phone] Assigned Infectious Disease Provider 10/23/23 Conrado Evans MD [address] [place] [address] 353 [facility] [address] [place], [place] [phone] Nephrology 08/25/24 Delvin Lopez MD [address] [place] [address] [phone] Nephrology 08/25/24 Carissa Putnam RN [facility] [address] [place], [place] [phone] Specialty Operations Vice President Pharmacy 10/10/24 10/10/24 documented as of this encounter
--- OUTSIDE RECORDS SUMMARY | 2024-10-13 08:55 | XMS_ITS | Encounter Summary ---
Author Organization [place] Address [address] [place] [address] Care Team Providers Care Steel Finisher Name Role Phone Robert Marley MD Primary Care Provider [phone] Berna Kruse MD Unavailable +[phone] Roxanna Armas RN Unavailable [phone] Irish Kim RN Unavailable [phone] Chana Cheng MD Unavailable [phone] Anoop Garcia MD Unavailable Unavailable Barbara Carlson MD Unavailable Tayo Lacey MD Unavailable [phone] TuBasil shaikh MD Unavailable MagedCharleen MD Unavailable [phone] Olimpia Williamson RN Unavailable [phone] Rin Dewitt RN Unavailable [phone] Rin Dewitt RN Unavailable [phone] Qian Rodriguez MD Unavailable [phone] Sherri Kingston Unavailable [phone] Olimpia Williamson RN Unavailable [phone] Olimpia Williamson RN Unavailable [phone] Christopher Quiroga MD Unavailable Claudia Yousif RN Unavailable Lance Simpson PA-C Unavailable Olimpia Wililamson RN Unavailable [phone] Sherri Kingston PA Unavailable Delvin Bob MD Unavailable [phone] Charleen Lynne MD Unavailable +[phone] ChapaShakira tellez MD Unavailable Unav ailable Hernesto Zoltan ADRIANM Unavailable +[phone] Lisbeth, Delvin England MD Unavailable +[phone] Maximo Mathis DO Unavailable + Sherri Kingston Unavailable Pedro Winchester MD Unavailable +[phone] ChapaShakira zelaya MD Unavailable Unav ailable Jovanni Dempsey MD Unavailable Jovanni Dempsey MD Unavailable [phone] Len Hooks MD Unavailable Delvin Bob MD Unavailable [phone] Love Hernandez-C Unavailable [phone] Conrado Evans MD Unavailable +[phone] Love Hernandez PA-C Unavailable [phone] Gordy Nickerson MD Unavailable [phone] Everardo Grant MD Unavailable Rey Billings MD Unavailable [phone] Conrado Evans MD Unavailable [phone] Delvin Lopez MD Unavailable [phone] Carissa Putnam RN Unavailable [phone] Encounter Details Date Type Department Care Team (Late Contact Info) Description 03/29/2014 External Order Results [facility] 2[facility] 516 [facility] 88 [place] [phone] Social History Tobacco Use Types Packs/Day Years Used Date Smoking Tobacco: Former Smokeless Tobacco: Never Alcohol Use Standard Drinks/Week Comments No 0 (1 standard drink = 0.6 oz pur e alcohol) Comments No Sex and Gender Information Value Date Recorded Sex Assigned at Not on file Legal Sex Female 3:26 AM VIDEO GAME MAKER Gender Identity Not on file Sexual Orientation Not on file Occupation Industry Job Start Date Job End Date Not on file Not on file Not on file Not on file documented as of this encounter Plan of Treatment Upcoming Encounters Date Type Department Care Team (Late Contact Info) Description 10/25/2024 10:00 AM CDT Virtual Visit [facility] [address] [place] [address] Edith Brito 10/26/2024 8:30 AM CDT Lab [facility] Center [facility] C[facility] [address] [facility] 200 [place] [phone] Conrado Evans MD [address] [place] [address] 353 [facility] [address] [place] [address] documented as of this encounter Procedures Procedure Name Priority Date/Time Associated Diagnosis Comments EXTERNAL LAB RESULTS Routine 03/27/2014 8:45 AM VIDEO GAME MAKER documented in this encounter Results * TXP External Lab Result (03/27/2014 8:45 AM VIDEO GAME MAKER) Everolimus (External) 4.4 ng/mL LABDE SCAN 03/27/2014 8:45 AM VIDEO GAME MAKER Narrative BOBBY PFT - 03/29/2014 8:31 AM VIDEO GAME MAKER Verified by Pao Oswald on 03/29/2014. us Patient Reported LABORATORY Edited Result - [...] the IP on-call for review. Meena Torres, [facility] Infection Prevention 07/11/2019 at 3:56 PM [...] Out COVID-19 04/19/2020 04/19/2020 04/19/2020 1:56 PM VIDEO GAME MAKER Rule Out COVID-19 04/19/2020 04/20/2020 04/20/2020 6:34 AM VIDEO GAME MAKER Rule Out COVID-19 12/15/2020 12/15/2020 12/15/2020 4:33 PM CDT Rule Out C-difficile 01/06/2021 01/08/2021 021 11:43 AM VIDEO GAME MAKER Rule Out C-difficile 07/10/2021 07/10/2021 022 5:56 PM CDT Rule Out C-difficile 07/16/2023 07/16/2023 024 9:21 PM CDT Rule Out Parvovirus 07/16/2023 07/16/2023 07/19/19 24 12:29 PM CDT Parvovirus 07/16/2023 07/16/2023 10/03/2024 4:22 PM CDT [id number] Comment:This patient was exposed to a person with a known CP-DATASTAGE ARCHITECT and has the potential for having acquired this pathogen of concern. The [place] Department of Health ([facility]) and CDC recommend that we screen this patient to prevent the spread of these organisms within our healthcare facility. Infection Prevention has placed orders for collecting a rectal swab for CP-DATASTAGE ARCHITECT to evaluate if this patient is now a carrier. This patient was identified to have a low risk exposure in which case Contact Precautions are not necessary unless the patient tests positive. Screening is voluntary. Please notify Infection Prevention if the patient declines testing. Additional information and resources can be found on the Infection Prevention MDRO Sharepoint page. 08/04/2023 08/04/2023 02/02/2024 11:39 PM VIDEO GAME MAKER Rule Out Parvovirus 09/28/2023 09/28/2023 10/05/19 24 11:41 PM CDT documented as of this encounter Care Teams Steel Finisher Relationship Specialty Start Date End Date Robert Marley MD [facility] [id number] [place] [address] PCP - General Family Practice 12/08/10 Berna Kruse MD [facility] [address] [place] [address] Nephrology 07/15/12 05/25/14 Roxanna Armas, RN Registered Nurse Transplant 07/15/12 05/25/14 Irish Kim RN Registered Nurse Transplant 05/26/14 09/20/14 Chana Cheng MD [facility] [address] [place] [address] Nephrology 05/26/14 11/12/15 Anoop Garcia MD [facility] [address] [place] [address] Transplant 05/26/14 02/02/18 Barbara Carlson MD [address] [place] [phone] Referring Physician Nephrology 08/30/14 11/12/15 Tayo Lacey MD [address] [place] [phone] Cardiology 08/30/14 Basil Plummer MD [address] [place] [address] Neurology 05/09/15 04/23/16 Charleen Lynne MD [address] [place] [address] 576825 Oncology 06/14/15 12/19/18 Olimpia Williamson, SONIA Nurse Coordinator Oncology 06/14/15 04/23/16 Rin Dewitt RN Nurse Coordinator Neurology 07/24/15 04/23/16 Rin Dewitt RN Nurse Coordinator Neurology 10/25/15 10/12/17 Qian Rodriguez MD 717 [facility] 353 [place] [address] Nephrology 11/13/15 06/16/16 Sherri Kingston PA 420 [facility] 394 [place], [place] [address] Physician Creative Lead Physician Creative Lead 03/20/16 Olimpia Williamson, RN Nurse Coordinator Oncology 06/26/16 06/26/16 Olimpia Williamson, RN Nurse Coordinator Oncology 06/26/16 06/16/18 Christopher Quiroga MD [facility] [address] [facility] 200 [place] [address] Oncology 07/02/16 Claudia Yousif RN Nurse Coordinator Gastroenterology 02/09/17 09/16/22 Lance Simpson PA-C [address] [place] [address] 398745 Physician Creative Lead Physician Creative Lead 01/07/18 Olimpia Williamson, RN Specialty Anthropology Department Chair Hematology & Oncology 05/06/18 12/19/18 Sherri Kingston PA 909 [facility] [place], [place] [address] Physician Creative Lead Physician Creative Lead 12/21/18 Delvin Bob MD 420 [facility] 250 [place] [address] Internal Medicine 11/11/19 Charlene Lynne MD 909 [place] [address] Assigned Cancer Care Provider 12/23/19 03/23/21 Shakira Chapa MD [facility] 06/29/2020 Assigned Surgical Provider 12/23/19 07/14/20 Zoltan Eric DPM [address] [facility] [address] [place] [address] Assigned Musculoskeletal Provider 12/23/19 07/26/21 Delvin Bob MD 420 [facility] 250 [place] [address] Assigned PCP 12/08/19 02/14/22 Maximo Mathis DO 909 [place] [address] Assigned Neuroscience Provider 02/12/20 08/09/21 Sherri Kingston PA 909 [facility] [place] [address] Assigned Surgical Provider 07/15/20 10/06/20 Pedro Winchester MD [address] [place] [address] Assigned Heart and Vascular Provider 08/05/20 01/31/22 Shakira Chapa MD [facility] 06/29/2020 Assigned Surgical Provider 10/07/20 10/13/20 Jovanni Dempsey MD 600 [place] [address] Assigned Nephrology Provider 03/24/21 03/14/22 Jovanni Dempsey MD 600 [place], [place] 142022 Assigned Nephrology Provider 03/15/22 03/21/22 Len Hooks MD [address] [facility] [address] [place] [address] Assigned Nephrology Provider 03/22/22 12/26/22 Delvin Bob MD [address] [facility] [address] [facility] [address] [place], [place] [address] Assigned PCP 04/26/22 12/12/22 Love Hernandez PA-C [address] [place], [place] [address] Physician Creative Lead Urology 12/01/22 Conrado Evans MD [address] [facility] [address] [place], [place] [address] Assigned Nephrology Provider 12/27/22 06/21/24 Love Hernandez PA-C [address] [place], [place] 2250[address] Assigned Surgical Provider 01/17/23 [place] [address] [address] [place] [address] Assigned Gastroenterology Provider 07/23/23 Everardo Grant MD 909 [place] [address] Physician Infectious Diseases 09/23/23 Rey Billings MD [address] [place] [address] Assigned Infectious Disease Provider 10/23/23 Conrado Evans MD 717 [facility] [address] [facility] [address] [place] [address] Nephrology 08/25/24 Delvin Lopez MD [address] [place] [address] Nephrology 08/25/24 Carissa Putnam RN [facility] [address] [place] [address] Specialty Anthropology Department Chair Pharmacy 10/10/24 10/10/24 documented as of this encounter
--- OUTSIDE RECORDS SUMMARY | 2024-10-13 08:55 | XMS_ITS | Encounter Summary ---
Author Organization [facility] Address [address] [place] [address] Care Team Providers Care Machinery Rigger Name Role Phone Robert Marley MD Primary Care Provider [phone] Berna Kruse MD Unavailable [phone] Roxanna Armas RN Unavailable [phone] Irish Kim RN Unavailable [phone] Chana Cheng MD Unavailable [phone] Anoop Garcia MD Unavailable Unavailable Barbara Carlson MD Unavailable Tayo Lacey MD Unavailable [phone] TuBasil shaikh MD Unavailable MagedCharleen MD Unavailable [phone] Olimpia Williamson RN Unavailable [phone] Rin Dewitt RN Unavailable [phone] Rin Dewitt RN Unavailable [phone] Qian Rodriguez MD Unavailable [phone] Sherri Kingston Unavailable [phone] Olimpia Williamson RN Unavailable [phone] Olimpia Williamson RN Unavailable [phone] Christopher Quiroga MD Unavailable Claudia Yousif RN Unavailable Lance Simpson PA-C Unavailable Olimpia Williamson RN Unavailable [phone] Sherri Kingston PA Unavailable Delvin Bob MD Unavailable Charleen Lynne MD Unavailable [phone] ChapaShakira tellez MD Unavailable Unav ailable Hernesto Zoltan ADRIANM Unavailable [phone] Lisbeth, Delvin England MD Unavailable [phone] Maximo Mathis DO Unavailable + Sherri Kingston Unavailable Pedro Winchester MD Unavailable [phone] ChapaShakira zelaya MD Unavailable Unav ailable Jovanni Dempsey MD Unavailable [phone] Jovanni Dempsey MD Unavailable Len Hooks MD Unavailable Delvin Bob MD Unavailable [phone] Love Hernandez-C Unavailable [phone] Conrado Evans MD Unavailable [phone] Love Hernandez PA-C Unavailable [phone] Gordy Nickerson MD Unavailable Everardo Grant MD Unavailable Rey Billings MD Unavailable [phone] Conrado Evans MD Unavailable Delvin Lopez MD Unavailable [phone] Carissa Putnam RN Unavailable [phone] Encounter Details Date Type Department Care Team (Late Contact Info) Description 04/13/2014 External Order Results [facility] 2[facility] [address] [facility] [address] [place] [phone] Social History Tobacco Use Types Packs/Day Years Used Date Smoking Tobacco: Former Smokeless Tobacco: Never Alcohol Use Standard Drinks/Week Comments No 0 (1 standard drink = 0.6 oz pur e alcohol) Comments No Sex and Gender Information Value Date Recorded Sex Assigned at Not on file Legal Sex Female 3:26 AM CALCINER OPERATOR Gender Identity Not on file Sexual Orientation Not on file Occupation Industry Job Start Date Job End Date Not on file Not on file Not on file Not on file documented as of this encounter Plan of Treatment Upcoming Encounters Date Type Department Care Team (Late Contact Info) Description 10/25/2024 10:00 AM CDT Virtual Visit [facility] [address] [place] [address] Edith Brito 10/26/2024 8:30 AM CDT Lab [facility] [address] [facility] 200 [place] [phone] Conrado Evans MD [address] [place] [address] 353 [facility] [address] [place] [address] documented as of this encounter Procedures Procedure Name Priority Date/Time Associated Diagnosis Comments EXTERNAL LAB RESULTS Routine 04/13/2014 12:00 PM CALCINER OPERATOR documented in this encounter Results * (ABNORMAL) TXP External Lab Result (04/13/2014 12:00 PM CALCINER OPERATOR) Calcium (External) 9.1 8.4 - 10.6 LABDE SCAN Urea Nitrogen (External) 15 5 - 24 LABDE SCAN Creatinine (External) 0.9 0.5 - 1.5 LABDE SCAN Glucose (External) 74 60 - 115 LABDE SCAN Sodium (External) 136 135 - 149 LABDE SCAN Potassium (External) 3.5(L) 3.6 - 5.1 LABDE SCAN Chloride (External) 107 96 - 114 LABDE SCAN CO2 (External) 28 20 - 32 LABDE SCAN Amylase (External) 54 18 - 89 LABDE SCAN Lipase Level (External) 126 23 - 300 LABDE SCAN WBC Count (External) 5.44 5.0 - 10.0 K/UL LABDE SCAN RBC Count (External) 3.6(L) 3.9 - 5.03 M/UL LABDE SCAN Hemoglobin (External) 9.8(L) 12.0 - 15.5 GM/DL LABDE SCAN Hematocrit (External) 31.9(L) 34.9 - 44.5 % LABDE SCAN MCV (External) 89 82 - 98 fL LABDE SCAN MCH (External) 27 27 - 34 pg LABDE SCAN MCHC (External) 31(L) 32 - 36 GM/DL LABDE SCAN Platelet Count (External) 189 150 - 450 K/UL LABDE SCAN % Neutrophils (External) 88.5(H) 50.0 - 70.0 % LABDE SCAN % Lymphocytes (External) 6.8(L) 25.0 - 45.0 % LABDE SCAN % Monocytes (External) 3.5 0.0 - 11.0 % LABDE SCAN % Eosinophils (External) 0.6 0.0 - 7.0 % LABDE SCAN % Basophils (External) 0.4 0.0 - 3.0 % LABDE SCAN Absolute Neutrophils (External) 4.82 1.70 - 7.00 K/UL LABDE SCAN Absolute Lymphocytes (External) 0.37(L) 0.9 - 2.9 K/UL LABDE SCAN Absolute Monocytes (External) 0.19(L) 0.3 - 0.9 K/UL LABDE SCAN Absolute Eosinophils (External) 0.03 0.0 - 0.5 K/UL LABDE SCAN Absolute Basophils (External) 0.02 0.00 - 0.20 K/UL LABDE SCAN INR (External) 2.0(H) 0.88 - 1.12 LABDE SCAN Mycophenolic Acid (External) <0.5(L) 1.0 - 3.5 ug/mL LABDE SCAN MPA Glucuronide (External) <5.0(L) 35.0 - 100.0 LABDE SCAN Everolimus (External) 7.4 NG/Ml LABDE SCAN 04/13/2014 12:0 0 PM CALCINER OPERATOR Narrative BOBBY PFT - 04/18/2014 6:50 AM CALCINER OPERATOR Verified by Yvette Christie on 04/13/2014. Verified by Guerrero Pinzon on 04/13/2014. Verified by Pao Oswald on 04/18/2014. us Patient Reported LABORATORY Edited [...] on-call for review. Meena Torres, [facility] Infection Prevention 07/11/2019 at 3:56 PM 07/11/2019 07/11/2019 09/23/2019 10:03 AM CDT Rule Out COVID-19 07/24/2019 07/24/2019 07/25/2019 5:33 AM CDT 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, 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 09/23/2019 09/23/2019 0903/2019 11:12 AM CDT Rule Out COVID-19 09/27/2019 09/27/2019 09/27/2019 3:20 PM CDT VRE-Standard Precautions 11/01/2019 11/01/2019 5:40 PM CDT 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, 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 Rule Out COVID-19 04/19/2020 04/19/2020 04/19/2020 1:56 PM CALCINER OPERATOR Rule Out COVID-19 04/19/2020 04/20/2020 04/20/2020 6:34 AM CALCINER OPERATOR Rule Out COVID-19 12/15/2020 12/15/2020 12/15/2020 4:33 PM CDT Rule Out C-difficile 01/06/2021 01/08/2021 021 11:43 AM CALCINER OPERATOR Rule Out C-difficile 07/10/2021 07/10/2021 022 5:56 PM CDT Rule Out C-difficile 07/16/2023 07/16/2023 024 9:21 PM CDT Rule Out Parvovirus 07/16/2023 07/16/2023 07/19/19 24 12:29 PM CDT Parvovirus 07/16/2023 07/16/2023 10/03/2024 4:22 PM CDT [id number] Comment:This patient was exposed to a person with a known CP-SUPERVISOR COMPUTER OPERATIONS and has the potential for having acquired this pathogen of concern. The [place] Department of Health ([facility]) and CDC recommend that we screen this patient to prevent the spread of these organisms within our healthcare facility. Infection Prevention has placed orders for collecting a rectal swab for CP-SUPERVISOR COMPUTER OPERATIONS to evaluate if this patient is now a carrier. This patient was identified to have a low risk exposure in which case Contact Precautions are not necessary unless the patient tests positive. Screening is voluntary. Please notify Infection Prevention if the patient declines testing. Additional information and resources can be found on the Infection Prevention MDRO Sharepoint page. 08/04/2023 08/04/2023 02/02/2024 11:39 PM CALCINER OPERATOR Rule Out Parvovirus 09/28/2023 09/28/2023 10/05/19 24 11:41 PM CDT documented as of this encounter Care Teams Machinery Rigger Relationship Specialty Start Date End Date Robert Marley MD [facility] [id number] [place] [address] PCP - General Family Practice 12/08/10 Berna Kruse MD [facility] [address] [place] [address] Nephrology 07/15/12 05/25/14 Roxanna Armas, RN Registered Nurse Transplant 07/15/12 05/25/14 Irish Kim RN Registered Nurse Transplant 05/26/14 09/20/14 Chana Cheng MD [facility] [address] [place] [address] Nephrology 05/26/14 11/12/15 Anoop Garcia MD [facility] [address] [place] [address] Transplant 05/26/14 02/02/18 Barbara Carlson MD [address] [place] [address] Referring Physician Nephrology 08/30/14 11/12/15 Tayo Lacey MD [address] [place] [phone] Cardiology 08/30/14 Basil Plummer MD [address] [place] [address] Neurology 05/09/15 04/23/16 Charleen Lynne MD [address] [place] [address] MD Oncology 06/14/15 12/19/18 Olimpia Williamson, RN Nurse Coordinator Oncology 06/14/15 04/23/16 Rin Dewitt RN Nurse Coordinator Neurology 07/24/15 04/23/16 Rin Dewitt RN Nurse Coordinator Neurology 10/25/15 10/12/17 Qian Rodriguez MD 717 [facility] 353 [place], [place] [phone] Nephrology 11/13/15 06/16/16 Sherri Kingston PA 420 [facility] 394 [place], [place] 243425 Physician Development Coach Physician Development Coach 03/20/16 Olimpia Williamson, RN Nurse Coordinator Oncology 06/26/16 06/26/16 Olimpia Williamson, RN Nurse Coordinator Oncology 06/26/16 06/16/18 Christopher Quiroga MD [facility] [address] [place], [place] [address] Oncology 07/02/16 Claudia Yousif, RN Nurse Coordinator Gastroenterology 02/09/17 09/16/22 Lance Simpson PA-C [address] [place], [place] [phone] Physician Development Coach Physician Development Coach 01/07/18 Olimpia Williamson, RN Specialty Manager Retail Store Hematology & Oncology 05/06/18 12/19/18 Sherri Kingston PA [address] [place] [address] Physician Development Coach Physician Development Coach 12/21/18 Delvin Bob MD [address] [place] [address] 250 [place], [place] 142525 Internal Medicine 11/11/19 Charleen Lynne MD [address] [place] [address] 224695 Assigned Cancer Care Provider 12/23/19 03/23/21 Shakira Chapa MD INACTIVE IN ID OF 06/29/2020 Assigned Surgical Provider 12/23/19 07/14/20 Zoltan Eric DPM [address] [facility] [address] [place], [place] 081287 Assigned Musculoskeletal Provider 12/23/19 07/26/21 Delvin Bob MD [address] [place] [address] 250 [place], [place] 225915 Assigned PCP 12/08/19 02/14/22 Maximo Mathis DO [address] [place] [address] 422875 Assigned Neuroscience Provider 02/12/20 08/09/21 Sherri Kingston PA [address] [place] [address] 064415 Assigned Surgical Provider 07/15/20 10/06/20 Pedro Winchester MD [address] 276145 Assigned Heart and Vascular Provider 08/05/20 01/31/22 Shakira Chapa MD INACTIVE IN ID OF 06/29/2020 Assigned Surgical Provider 10/07/20 10/13/20 Jovanni Dempsey MD 600 [place], [place] 664902 Assigned Nephrology Provider 03/24/21 03/14/22 Jovanni Dempsey MD [address] [place], [place] 073562 Assigned Nephrology Provider 03/15/22 03/21/22 Len Hooks MD [address] [place] [address] [place], [place] 5[address]64 Assigned Nephrology Provider 03/22/22 12/26/22 Delvin Bob MD [address] [facility] [address] [place], [place] 9920[address] Assigned PCP 04/26/22 12/12/22 Love Hernandez PA-C [address] [place] [id number] Physician Development Coach Urology 12/01/22 Conrado Evans MD [address] [place] [address] [facility] [address] [place], [place] 2867[address] Assigned Nephrology Provider 12/27/22 06/21/24 Love Hernandez PA-C 6363 [facility] 500 [place] [address] Assigned Surgical Provider 01/17/23 [place] [address] [address], [place] [address] Assigned Gastroenterology Provider 07/23/23 Everardo Grant MD [address] [place] [address] 034555 Physician Infectious Diseases 09/23/23 Rey Billings MD [address] [place] [address] 542305 Assigned Infectious Disease Provider 10/23/23 Conrado Evans MD [address] [place] [address] 353 [facility] [address] [place], [place] [address] Nephrology 08/25/24 Delvin Lopez MD [address] [place] [address] 545915 Nephrology 08/25/24 Carissa Putnam RN [facility] 7[address] [place], [place] [phone] Specialty Manager Retail Store Pharmacy 10/10/24 10/10/24 documented as of this encounter
--- OUTSIDE RECORDS SUMMARY | 2024-10-13 08:56 | XMS_ITS | Encounter Summary ---
Author Organization [facility] Address [address] [place] [address] Care Team Providers Care Tobacco Stripper Hand Name Role Phone Robert Marley MD Primary Care Provider Irish Kim RN Unavailable [phone] Chana Cheng MD Unavailable [phone] Anoop Garcia MD Unavailable Unavailable Barbara Carlson MD Unavailable Tayo Lacey MD Unavailable [phone] Basil Plummer MD Unavailable Charleen Lynne MD Unavailable [phone] Olimpia Williamson RN Unavailable [phone] Rin Dewitt RN Unavailable [phone] Rin Dewitt RN Unavailable [phone] Qian Rodriguez MD Unavailable [phone] Sherri Kingston Unavailable [phone] Olimpia Williamson RN Unavailable [phone] Olimpia Williamson RN Unavailable [phone] Christopher Quiroga MD Unavailable Claudia Yousif RN Unavailable Lance Simpson PA-C Unavailable [phone] Olimpia Williamson RN Unavailable [phone] Sherri Kingston Unavailable [phone] Delvin Bob MD Unavailable [phone] Charleen Lynne MD Unavailable [phone] ChapaShakira zelaya MD Unavailable Unav ailable Zoltan Eric DPM Unavailable [phone] Delvin Bob MD Unavailable Maximo Mathis DO Unavailable + Sherri Kingston Unavailable [phone] Pedro Winchester MD Unavailable [phone] ChapaShakira zelaya MD Unavailable Unav ailable Jovanni Dempsey MD Unavailable [phone] Jovanni Dempsey MD Unavailable [phone] Len Hooks MD Unavailable Delvin Bob MD Unavailable Love Hernandez-C Unavailable [phone] Conrado Evans MD Unavailable [phone] Love Hernandez-C Unavailable Gordy Nickerson MD Unavailable Everardo Grant MD Unavailable Rey Billings MD Unavailable [phone] Conrado Evans MD Unavailable Delvin Lopez MD Unavailable [phone] Carissa Putnam RN Unavailable [phone] Encounter Details Date Type Department Care Team (Late st Contact Info) Description 08/17/2014 External Order Results [facility] Clinic [address] [address] Social History Tobacco Use Types Packs/Day Years Used Date Smoking Tobacco: Former Smokeless Tobacco: Never Alcohol Use Standard Drinks/Week Comments No 0 (1 standard drink = 0.6 oz pur e alcohol) Comments No Sex and Gender Information Value Date Recorded Sex Assigned at Not on file Legal Sex Female 3:26 AM 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 GAUGER Gender Identity Not on file Sexual Orientation Not on file Occupation Industry Job Start Date Job End Date Not on file Not on file Not on file Not on file documented as of this encounter Plan of Treatment Upcoming Encounters Date Type Department Care Team (Late st Contact Info) Description 10/25/2024 10:00 AM CDT Virtual Visit [facility] [facility] [address] [place] [address] Edith Brito 10/26/2024 8:30 AM CDT Lab [facility] [address] [facility] 200 [place] [phone] Conrado Evans MD 719 [facility] 353 [facility] [address] [place], [place] [address] documented as of this encounter Procedures Procedure Name Priority Date/Time Associated Diagnosis Comments EXTERNAL LAB RESULTS Routine 08/17/2014 9:30 AM CDT documented in this encounter Results * (ABNORMAL) TXP External Lab Result (08/17/2014 9:30 AM CDT) Lipase Level (External) 101(L) 123 - 300 LABDE SCAN Amylase (External) 63 18 - 89 U/L LABDE SCAN CO2 (External) 28 20 - 32 MMOL/L LABDE SCAN Chloride (External) 105 95 - 114 MMOL LABDE SCAN Potassium (External) 4.3 3.6 - 5.1 MMOL/L LABDE SCAN Sodium (External) 141 135 - 149 MMOL/L LABDE SCAN Glucose (External) 85 60 - 115 mg/dL LABDE SCAN Creatinine (External) 0.8 0.5 - 1.5 MG/DL LABDE SCAN Urea Nitrogen (External) 20 5 - 24 MG/DL LABDE SCAN Calcium (External) 9.3 8.4 - 10.6 MG/DL LABDE SCAN Absolute Lymphocytes (External) 0.55(L) 0.90 - 2.90 LABDE SCAN Absolute Neutrophils (External) 3.30 1.70 - 7.00 K/UL LABDE SCAN % Basophils (External) 0.8 0.0 - 3.0 % LABDE SCAN % Eosinophils (External) 5.9 0.0 - 7.0 % LABDE SCAN % Monocytes (External) 12.0(H) 0.00 - 11.0 % LABDE SCAN % Lymphocytes (External) 11.6(L) 25.0 - 45.0 % LABDE SCAN % Neutrophils (External) 69.7 50.0 - 70.0 % LABDE SCAN Platelet Count (External) 181 150 - 450 K/UL LABDE SCAN MCHC (External) 32 32 - 36 GM/DL LABDE SCAN MCH (External) 27 27 - 34 PG LABDE SCAN MCV (External) 85 82 - 98 FL LABDE SCAN Hematocrit (External) 39.7 34.9 - 44.5 % LABDE SCAN Hemoglobin (External) 12.6 12.0 - 15.5 LABDE SCAN RBC Count (External) 4.65 3.90 - 5.05 LABDE SCAN WBC Count (External) 4.74(L) 5.00 - 10.00 K/UL LABDE SCAN INR (External) 1.8(H) 0.88 - 1.12 LABDE SCAN Absolute Basophils (External) 0.04 0.00 - 0.20 LABDE SCAN Absolute Eosinophils (External) 0.28 0.00 - 0.50 LABDE SCAN Absolute Monocytes (External) 0.57 0.30 - 0.90 /UL LABDE SCAN 08/17/2014 9:30 AM CDT Narrative BOBBY VELOZT - 08/17/2014 1:18 PM CDT Verified by Pao Oswald on 08/17/2014. us Patient Reported LABORATORY Edited Result - [...] the IP on-call for review. Meena Torres [facility] Infection Prevention 07/11/2019 at 3:56 PM [...] Out COVID-19 04/19/2020 04/19/2020 04/19/2020 1:56 PM MAT GAUGER Rule Out COVID-19 04/19/2020 04/20/2020 04/20/2020 6:34 AM MAT GAUGER Rule Out COVID-19 12/15/2020 12/15/2020 12/15/2020 4:33 PM CDT Rule Out C-difficile 01/06/2021 01/08/2021 021 11:43 AM MAT GAUGER Rule Out C-difficile 07/10/2021 07/10/2021 022 5:56 PM CDT Rule Out C-difficile 07/16/2023 07/16/2023 024 9:21 PM CDT Rule Out Parvovirus 07/16/2023 07/16/2023 07/19/19 24 12:29 PM CDT Parvovirus 07/16/2023 07/16/2023 10/03/2024 4:22 PM CDT [id number] Comment:This patient was exposed to a person with a known CP-SOFT METALS ENGRAVER HAND and has the potential for having acquired this pathogen of concern. The [place] Department of Health ([facility]) and CDC recommend that we screen this patient to prevent the spread of these organisms within our healthcare facility. Infection Prevention has placed orders for collecting a rectal swab for CP-SOFT METALS ENGRAVER HAND to evaluate if this patient is now a carrier. This patient was identified to have a low risk exposure in which case Contact Precautions are not necessary unless the patient tests positive. Screening is voluntary. Please notify Infection Prevention if the patient declines testing. Additional information and resources can be found on the Infection Prevention MDRO Sharepoint page. 08/04/2023 08/04/2023 02/02/2024 11:39 PM MAT GAUGER Rule Out Parvovirus 09/28/2023 09/28/2023 10/05/19 24 11:41 PM CDT documented as of this encounter Care Teams Tobacco Stripper Hand Relationship Specialty Start Date End Date Robert Marley MD [address] [address] PCP - General Family Practice 12/08/10 Irish Kim, RN Registered Nurse Transplant 05/26/14 09/20/14 Chana Cheng MD [facility] [address] [place] [address] Nephrology 05/26/14 11/12/15 Anoop Garcia MD [facility] [address] [place] [address] Transplant 05/26/14 02/02/18 Barbara Carlson MD [address] [place] [address] Referring Physician Nephrology 08/30/14 11/12/15 Tayo Lacey MD [address] [place] [address] Cardiology 08/30/14 Basil Plummer MD [address] [place] [address] 908765 Neurology 05/09/15 04/23/16 Charleen Lynne MD [address] [place] [address] 210015 MD Oncology 06/14/15 12/19/18 Olimpia Williamson, SONIA Nurse Coordinator Oncology 06/14/15 04/23/16 Rin Dewitt, RN Nurse Coordinator Neurology 07/24/15 04/23/16 Rin Dewitt, RN Nurse Coordinator Neurology 10/25/15 10/12/17 Qian Rodriguez MD [address] [place] [address] 463074 Nephrology 11/13/15 06/16/16 Sherri Kingston PA [address] [place] [address] 394 [place], [place] 024245 Physician Mds Coordinator Physician Mds Coordinator 03/20/16 Olimpia Williamson, RN Nurse Coordinator Oncology 06/26/16 06/26/16 Olimpia Williamson, RN Nurse Coordinator Oncology 06/26/16 06/16/18 Christopher Quiroga MD [facility] [address] [place] [address] MD Oncology 07/02/16 Claudia Yousif RN Nurse Coordinator Gastroenterology 02/09/17 09/16/22 Lance Simpson PA-C [address] [place] [address] 317005 Physician Mds Coordinator Physician Mds Coordinator 01/07/18 Olimpia Williamson, RN Specialty Efficiency Clerk Hematology & Oncology 05/06/18 12/19/18 Sherri Kingston PA [address] [place] [address] Urology [place], [place] 891455 Physician Mds Coordinator Physician Mds Coordinator 12/21/18 Delvin Bob MD [address] [place] [address] 368395 Internal Medicine 11/11/19 Charleen Lynne MD [address] [place] [address] 831805 Assigned Cancer Care Provider 12/23/19 03/23/21 Shakira Chapa MD INACTIVE IN [place] OF 06/29/2020 Assigned Surgical Provider 12/23/19 07/14/20 Zoltan Eric DPM [address] [facility] [address] [place] [address] Assigned Musculoskeletal Provider 12/23/19 07/26/21 Delvin Bob MD [address] [place] [address] 250 [place] [address] Assigned PCP 12/08/19 02/14/22 Maximo Mathis DO [address] [place] [address] Assigned Neuroscience Provider 02/12/20 08/09/21 Sherri Kingston PA [address] [place] [address] [place] [address] Assigned Surgical Provider 07/15/20 10/06/20 Pedro Winchester MD 6405 [place] [address] Assigned Heart and Vascular Provider 08/05/20 01/31/22 Shakira Chapa MD INACTIVE IN [place] OF 06/29/2020 Assigned Surgical Provider 10/07/20 10/13/20 Jovanni Dempsey MD 600 [place], [place] 647112 Assigned Nephrology Provider 03/24/21 03/14/22 Jovanni Dempsey MD 600 [place], [place] 025142 Assigned Nephrology Provider 03/15/22 03/21/22 Len Hooks MD [address] [place] [address] 773274 Assigned Nephrology Provider 03/22/22 12/26/22 Delvin Bob MD [address] [place] [address] 250 [place], [place] 590295 Assigned PCP 04/26/22 12/12/22 Love Hernandez PA-C 6363 [facility] 500 [place] [address] Physician Mds Coordinator Urology 12/01/22 Conrado Evans MD [address] [place] [address] 353 [facility] 1932 [place] [address] Assigned Nephrology Provider 12/27/22 06/21/24 Love Hernandez PA-C 6363 [facility] S [facility] 500 [place], [place] 99[address]85 Assigned Surgical Provider 01/17/23 [place] [address] [place] [address] Assigned Gastroenterology Provider 07/23/23 Everardo Grant MD [address] [place] [address] [id number] Physician Infectious Diseases 09/23/23 Rey Billings MD [address] [place] [address] 845345 Assigned Infectious Disease Provider 10/23/23 Conrado Evans MD 717 [facility] 353 [facility] [address] [place] [address] Nephrology 08/25/24 Delvin Lopez MD [address] [place] [address] 074065 Nephrology 08/25/24 Carissa Putnam RN [facility] 7[address] [place], [place] [phone] Specialty Efficiency Clerk Pharmacy 10/10/24 10/10/24 documented as of this encounter
--- OUTSIDE RECORDS SUMMARY | 2024-10-13 08:56 | XMS_ITS | Encounter Summary ---
Author Organization [facility] Address [address] [place] [address] Care Team Providers Care [employer] Name Role Phone Robert Marley MD Primary Care Provider [phone] Tayo Lacey MD Unavailable [phone] Christopher Quiroga MD Unavailable Lance Simpson PA-C Unavailable +[phone] Sherri Kingston Unavailable +[phone] Delvin Bob MD Unavailable [phone] Len Hooks MD Unavailable Delvin Bob MD Unavailable +[phone] Love Hernandez-C Unavailable [phone] Conrado Evans MD Unavailable [phone] Love Hernandez-C Unavailable [phone] Gordy Nickerson MD Unavailable +[phone] Everardo Grant MD Unavailable Rey Billings MD Unavailable [phone] Conrado Evans MD Unavailable [phone] Delvin Lopez MD Unavailable [phone] Carissa Putnam RN Unavailable +[phone] Encounter Details Date Type Department Care Team (Late st Contact Info) Description 10/29/2022 MyC Medical Advice [facility] [address] [place] [address] Brenda Fritz Social History Tobacco Use Types Packs/Day Years Used Date Smoking Tobacco: Former Smokeless Tobacco: Never Alcohol Use Standard Drinks/Week Comments No 0 (1 standard drink = 0.6 oz pur e alcohol) PHQ-2 Answer Date Recorded PHQ-2 Score 5 03/12/2022 Comments No Sex and Gender Information Value Date Recorded Sex Assigned at Not on file Legal Sex Female 3:26 AM AUDITOR INTERNAL Gender Identity Not on file Sexual Orientation Not on file Occupation Industry Job Start Date Job End Date Not on file Not on file Not on file Not on file documented as of this encounter Plan of Treatment Upcoming Encounters Date Type Department Care Team ([facility] Contact Info) Description 10/25/2024 10:00 AM CDT Virtual Visit [facility] [address] [place] [address] Edith Brito 10/26/2024 8:30 AM CDT Lab [facility] C[facility] [address] [facility] 200 [place] [address] Conrado Evans MD [address] [place] [address] 353 [facility] [address] [place] [address] documented as of this encounter Visit Diagnoses Not on filedocumented in this encounter Additional Health Concerns 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 The [place] Department of Health ([facility]) and CDC recommend that we screen this patient to prevent the spread of these organisms within our healthcare facility. Infection Prevention has placed orders for collecting a rectal swab for CP-LIBRARY CIRCULATION TECHNICIAN to evaluate if this patient is now a carrier. This patient was identified to have a low risk exposure in which case Contact Precautions are not necessary unless the patient tests positive. Screening is voluntary. Please notify Infection Prevention if the patient declines testing. Additional information and resources can be found on the Infection Prevention [employer] Sharepoint page. 08/04/2023 08/04/2023 02/02/2024 11:39 PM AUDITOR INTERNAL Rule Out Parvovirus 09/28/2023 09/28/2023 10/05/19 11:41 PM CDT Assessment Noted Time PHQ-9 Depression Total Score: 18 023 10:27 AM AUDITOR INTERNAL documented as of this encounter Care Teams [employer] Relationship Specialty Start Date End Date Robert Marley MD [facility] [id number] [place] [address] PCP - General Family Practice 12/08/10 Tayo Lacey MD [address] [address] Cardiology 08/30/14 Christopher Quiroga MD [facility] [address] [facility] [address] [place] [address] Oncology 07/02/16 Lance Simpson PA-C [address] [place] [address] [id number] Physician Email Administrator Physician Email Administrator 01/07/18 Sherri Kingston PA [address] [place] [address] Urology [place], [place] 13[address] Physician Email Administrator Physician Email Administrator 12/21/18 Delvin Bob MD 420 [facility] 250 [place] [address] Internal Medicine 11/11/19 Len Hooks MD 717 [facility] 353 [place] [address] Assigned Nephrology Provider 03/22/22 12/26/22 Delvin Bob MD 420 [facility] 250 [place] [address] Assigned PCP 04/26/22 12/12/22 Love Hernandez PA-C 6[address] [facility] 500 [place] [address] Physician Email Administrator Urology 12/01/22 Conrado Evans MD 717 [facility] 353 [facility] [address] [place] [address] Assigned Nephrology Provider 12/27/22 06/21/24 Love Hernandez PA-C 6363 [facility] 500 [place] [address] Assigned Surgical Provider 01/17/23 [place] [address] [place] [address] Assigned Gastroenterology Provider 07/23/23 Everardo Grant MD [address] [place], [place] 6[address] Physician Infectious Diseases 09/23/23 Rey Billings MD 9 [place] [address] Assigned Infectious Disease Provider 10/23/23 Conrado Evans MD 717 [facility] [address] [facility] [address] [place] [address] Nephrology 08/25/24 Delvin Lopez MD [address] [place] [address] Nephrology 08/25/24 Carissa Putnam RN [facility] [address] [place], [place] [id number] Specialty Administrator Health Care Facility Pharmacy 10/10/24 documented as of this encounter
--- OUTSIDE RECORDS SUMMARY | 2024-10-13 08:56 | XMS_ITS | Encounter Summary ---
Author Organization [facility] Address [address] [place] [address] Care Team Providers Care Sandblaster Glass Name Role Phone Robert Marley MD Primary Care Provider [phone] Tayo Lacey MD Unavailable [phone] Christopher Quiroga MD Unavailable Lance Simpson PA-C Unavailable [phone] Sherri Kingston Unavailable [phone] Delvin Bob MD Unavailable [phone] Love Hernandez-C Unavailable Love Hernandez-C Unavailable Gordy Nickerson MD Unavailable Everardo Grant MD Unavailable Rey Billings MD Unavailable [phone] Conrado Evans MD Unavailable [phone] Delvin Lopez MD Unavailable [phone] Carissa Putnam RN Unavailable [phone] Encounter Details Date Type Department Care Team (Late st Contact Info) Description 10/10/2024 [facility] [address] [place] [address] Susan Pelletier, RN EBV (Patrick-Cole virus) viremia Social History Tobacco Use Types Packs/Day Years [...] on file Legal Sex Female 3:26 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 Gender Identity Not on file Sexual [...] Edith Brito documented as of this encounter Plan of Treatment Upcoming Encounters Date Type Department Care Team (Late st Contact Info) Description 10/25/2024 10:00 AM CDT Virtual Visit [facility] [address] [place] [address] Edith Brito 10/26/2024 8:30 AM CDT Lab [facility] Medical Ctr [facility] [address] [facility] 200 [place] [phone] Conrado Evans MD 717 [facility] 353 [facility] [address] [place] [address] documented as of this encounter Visit Diagnoses Diagnosis EBV (Patrick-Cole virus) viremia Infectious mononucleosis documented in this encounter Additional Health Concerns 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, 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 Assessment Noted Time PHQ-9 Depression Total Score: 14 025 3:12 PM CDT documented as of this encounter Care Teams Sandblaster Glass Relationship Specialty Start Date End Date Robert Marley MD [facility] [id number] [place] [address] PCP - General Family Practice 12/08/10 Tayo Lacey MD [facility] [address] [place] [address] Cardiology 08/30/14 Christopher Quiroga MD [facility] [address] [place] [address] Oncology 07/02/16 Lance Simpson PA-C [address] [place] [address] 811905 Physician General Internal Medicine Doctor Physician General Internal Medicine Doctor 01/07/18 Sherri Kingston PA [address] [place] [address] Urology [place], [place] 3909[address] Physician General Internal Medicine Doctor Physician General Internal Medicine Doctor 12/21/18 Delvin Bob MD [address] [place] [address] 250 [place] [address] Internal Medicine 11/11/19 Love Hernandez PA-C [address] [place] [address] [place], [place] [address] Physician General Internal Medicine Doctor Urology 12/01/22 Love Hernandez PA-C [address] [facility] [address] [place] [address] Assigned Surgical Provider 01/17/23 [place] [address] [place] [address] Assigned Gastroenterology Provider 07/23/23 Everardo Grant MD 909 [place] [address] Physician Infectious Diseases 09/23/23 Rey Billings MD 909 [place], [place] [address] Assigned Infectious Disease Provider 10/23/23 Conrado Evans MD 717 [facility] [address] [facility] [address] [place], [place] [id number] Nephrology 08/25/24 Delvin Lopez MD [address]09 [place], [place] 44[address] Nephrology 08/25/24 Carissa Putnam RN [facility] [address] [place] [address] Specialty Repairer [employer] Equipment Pharmacy 10/10/24 documented as of this encounter
--- OUTSIDE RECORDS SUMMARY | 2024-10-13 08:56 | XMS_ITS | Encounter Summary ---
Author Organization [facility] Address [address] [place] [address] Care Team Providers Care Medical Technician Assistant Name Role Phone Robert Marley MD Primary Care Provider [phone] Tayo Lacey MD Unavailable [phone] Christopher Quiroga MD Unavailable Lance Simpson PA-C Unavailable +[phone] Sherri Kingston Unavailable +[phone] Delvin Bob MD Unavailable [phone] Love Hernandez-C Unavailable Love Hernandez-C Unavailable Gordy Nickerson MD Unavailable [phone] Everardo Grant MD Unavailable Rey Billings MD Unavailable [phone] Conrado Evans MD Unavailable [phone] Delvin Lopez MD Unavailable [phone] Carissa Putnam RN Unavailable [phone] Encounter Details Date Type Department Care Team (Late st Contact Info) Description 10/10/2024 MyC Medical Advice [facility] [address] [facility] [place] [address] Edith Brito Social History Tobacco Use Types Packs/Day Years [...] on file 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 Assessment Noted Time PHQ-9 Depression Total Score: 14 025 3:12 PM CDT documented as of this encounter Care Teams Medical Technician Assistant Relationship Specialty Start Date End Date Robert Marley MD [facility] [id number] [place] [address] PCP - General Family Practice 12/08/10 Tayo Lacey MD [facility] [id number] [place] [address] Cardiology 08/30/14 Christopher Quiroga MD [facility] [address] [place] [address] Oncology 07/02/16 Lance Simpson PA-C [address] [place] [address] Physician Autocad Detailer Physician Autocad Detailer 01/07/18 Sherri Kingston PA [address] [place] [address] [place] [address] Physician Autocad Detailer Physician Autocad Detailer 12/21/18 Delvin Bob MD [address] [place] [address] 250 [place] [address] Internal Medicine 11/11/19 Love Hernandez PA-C [address] [place] [address] [place], [place] [address] Physician Autocad Detailer Urology 12/01/22 Love Hernandez PA-C [address] [place] [address] [place], [place] [address] Assigned Surgical Provider 01/17/23 [place] [address] [place] [address] Assigned Gastroenterology Provider 07/23/23 Everardo Grant MD 9 [place] [address] Physician Infectious Diseases 09/23/23 Rey Billings MD 909 [place] [address] Assigned Infectious Disease Provider 10/23/23 Conrado Evans MD 717 [facility] 353 [facility] [address] [place] [address] Nephrology 08/25/24 Delvin Lopez MD [address] [place] [address] Nephrology 08/25/24 Carissa Putnam RN [facility] 7[address] [place] [address] Specialty Reimbursement Coordinator Pharmacy 10/10/24 documented as of this encounter
--- OUTSIDE RECORDS SUMMARY | 2024-10-13 08:56 | XMS_ITS | Encounter Summary ---
Author Organization [place] Address [address] [place] [address] Care Team Providers Care Operations Expert Name Role Phone Robert Marley MD Primary Care Provider [phone] Berna Kruse MD Unavailable [phone] Roxanna Armas RN Unavailable +[phone] Irish Kim RN Unavailable +[phone] Chana Cheng MD Unavailable [phone] Anoop aGrcia MD Unavailable Unavailable Barbara Carlson MD Unavailable Tayo Lacey MD Unavailable +[phone] TuBasil shaikh MD Unavailable MagedCharleen MD Unavailable +[phone] Olimpia Williamson RN Unavailable [phone] Rin Dewitt RN Unavailable [phone] Rin Dewitt RN Unavailable [phone] Qian Rodriguez MD Unavailable [phone] Sherri Kingston Unavailable +[phone] Olimpia Williamson RN Unavailable [phone] Olimpia Williamson RN Unavailable [phone] Christopher Quiroga MD Unavailable Claudia Yousif RN Unavailable Lance Simpson PA-C Unavailable Olimpia Williamson RN Unavailable [phone] Sherri Kingston PA Unavailable [phone] Delvin Bob MD Unavailable Charleen Lynne MD Unavailable +[phone] ChapaShakira tellez MD Unavailable Unav ailable Hernesto Zoltan ADRIANM Unavailable +[phone] Lisbeth, Delvin England MD Unavailable +[phone] Maximo Mathis DO Unavailable + Sherri Kingston Unavailable [phone] Pedro Winchester MD Unavailable [phone] ChapaShakira zelaya MD Unavailable Unav ailable Jovanni Dempsey MD Unavailable +[phone] Jovanni Dempsey MD Unavailable Len Hooks MD Unavailable Delvin Bob MD Unavailable [phone] Love Hernandez-C Unavailable [phone] Conrado Evans MD Unavailable +[phone] Love Hernandez PA-C Unavailable [phone] Gordy Nickerson MD Unavailable Everardo Grant MD Unavailable Rey Billings MD Unavailable +[phone] Conrado Evans MD Unavailable Delvin Lopez MD Unavailable [phone] Carissa Putnam RN Unavailable [phone] Encounter Details Date Type Department Care Team (Late Contact Info) Description 04/06/2014 External Order Results [facility], Clinic [facility] [address] [facility] 88 [place] [phone] Social History Tobacco Use Types Packs/Day Years Used Date Smoking Tobacco: Former Smokeless Tobacco: Never Alcohol Use Standard Drinks/Week Comments No 0 (1 standard drink = 0.6 oz pur e alcohol) Comments No Sex and Gender Information Value Date Recorded Sex Assigned at Not on file Legal Sex Female 3:26 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 Gender Identity Not on file Sexual Orientation Not on file Occupation Industry Job Start Date Job End Date Not on file Not on file Not on file Not on file documented as of this encounter Plan of Treatment Upcoming Encounters Date Type Department Care Team (Late Contact Info) Description 10/25/2024 10:00 AM CDT Virtual Visit [facility] [address] [place] [address] Edith Brito 10/26/2024 8:30 AM CDT Lab [facility] Center [facility] [address] [facility] 200 [place] [phone] Conrado Evans MD [address] [place] [address] 353 [facility] 1932 [place] [address] documented as of this encounter Procedures Procedure Name Priority Date/Time Associated Diagnosis Comments EXTERNAL LAB RESULTS Routine 04/06/2014 8:33 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 documented in this encounter Results * (ABNORMAL) TXP External Lab Result (04/06/2014 8:33 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) WBC Count (External) 3.45(L) 5.00 - 10.00 K/UL LABDE SCAN Hemoglobin (External) 10.3(L) 12.0 - 15.5 GM/DL LABDE SCAN MCV (External) 89 82 - 96 FL LABDE SCAN % Neutrophils (External) 74.5(H) 50.0 - 70.0 % LABDE SCAN % Monocytes (External) 4.6 0.00 - 11.0 % LABDE SCAN RBC Count (External) 3.71(L) 3.90 - 5.03 LABDE SCAN MCH (External) 28 27 - 34 LABDE SCAN MCHC (External) 31(L) 32 - 36 LABDE SCAN Platelet Count (External) 247 150 - 450 LABDE SCAN Absolute Neutrophils (External) 2.57 1.70 - 7.00 LABDE SCAN Absolute Lymphocytes (External) 0.52(L) 0.90 - 2.90 LABDE SCAN Everolimus (External) 6.2 LABDE SCAN Mycophenolic Acid (External) <0.5(L) 1.0 - 3.5 ug/mL LABDE SCAN MPA Glucuronide (External) <5.0(L) 35.0 - 100.0 ug/mL LABDE SCAN 04/06/2014 8:33 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 Narrative [facility]OBBY PFT - 04/10/2014 10:13 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 Verified by Pao Oswald on 04/06/2014. Verified by Velvet Freeman on 04/10/2014. Verified by Deisi Justice on 04/10/2014. us Patient Reported LABORATORY Edited Result - [...] the IP on-call for review. 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, 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 Rule Out COVID-19 04/19/2020 04/19/2020 04/19/2020 1:56 PM HARDBOARD 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 Rule Out COVID-19 04/19/2020 04/20/2020 04/20/2020 6:34 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 Rule Out COVID-19 12/15/2020 12/15/2020 12/15/2020 4:33 PM CDT Rule Out C-difficile 01/06/2021 01/08/2021 021 11:43 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 Rule Out C-difficile 07/10/2021 07/10/2021 022 5:56 PM CDT Rule Out C-difficile 07/16/2023 07/16/2023 024 9:21 PM CDT Rule Out Parvovirus 07/16/2023 07/16/2023 07/19/19 24 12:29 PM CDT Parvovirus 07/16/2023 07/16/2023 10/03/2024 4:22 PM CDT [id number] Comment:This patient was exposed to a person with a known CP-ORDNANCE MECHANIC and has the potential for having acquired this pathogen of concern. The [place] Department of Health ([facility]) and CDC recommend that we screen this patient to prevent the spread of these organisms within our healthcare facility. Infection Prevention has placed orders for collecting a rectal swab for CP-ORDNANCE MECHANIC to evaluate if this patient is now a carrier. This patient was identified to have a low risk exposure in which case Contact Precautions are not necessary unless the patient tests positive. Screening is voluntary. Please notify Infection Prevention if the patient declines testing. Additional information and resources can be found on the Infection Prevention MDRO Sharepoint page. 08/04/2023 08/04/2023 02/02/2024 11:39 PM HARDBOARD 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 Rule Out Parvovirus 09/28/2023 09/28/2023 10/05/19 11:41 PM CDT documented as of this encounter Care Teams Operations Expert Relationship Specialty Start Date End Date Robert Marley MD [address] [address] PCP - General Family Practice 12/08/10 Berna Kruse MD [facility] [address] [place] [address] Nephrology 07/15/12 05/25/14 Roxanna Armas, RN Registered Nurse Transplant 07/15/12 05/25/14 Irish Kim RN Registered Nurse Transplant 05/26/14 09/20/14 Chana Cheng MD [facility] [address] [place] [address] Nephrology 05/26/14 11/12/15 Anoop Garcia MD [facility] [address] [place] [address] Transplant 05/26/14 02/02/18 Barbara Carlson MD [address] [place] [phone] Referring Physician Nephrology 08/30/14 11/12/15 Tayo Lacey MD [address] [place] [phone] Cardiology 08/30/14 Basil Plummer MD [address] [place] [address] [id number] Neurology 05/09/15 04/23/16 Charleen Lynne MD [address] [place] [address] MD Oncology 06/14/15 12/19/18 Olimpia Williamson RN Nurse Coordinator Oncology 06/14/15 04/23/16 Rin Dewitt RN Nurse Coordinator Neurology 07/24/15 04/23/16 Rin Dewitt RN Nurse Coordinator Neurology 10/25/15 10/12/17 Qian Rodriguez MD [address] [place] [address] 353 [place] [address] Nephrology 11/13/15 06/16/16 Sherri Kingston PA 420 [facility] 394 [place], [place] [address] Physician Vaccine Customer Representative Physician Vaccine Customer Representative 03/20/16 Olimpia Williamson, RN Nurse Coordinator Oncology 06/26/16 06/26/16 Olimpia Williamson, RN Nurse Coordinator Oncology 06/26/16 06/16/18 Christopher Quiroga MD [facility] [address] 200 [place], [place] [address] Oncology 07/02/16 Claudia Yousif RN Nurse Coordinator Gastroenterology 02/09/17 09/16/22 Lance Simpson PA-C [address] [place] [address] Physician Vaccine Customer Representative Physician Vaccine Customer Representative 01/07/18 Olimpia Williamson, SONIA Specialty Hydramatic Specialist Hematology & Oncology 05/06/18 12/19/18 Sherri Kingston PA [address] [place] [address] [place] [address] Physician Vaccine Customer Representative Physician Vaccine Customer Representative 12/21/18 Delvin Bob MD [address] [place] [address] 250 [place], [place] 9069[address] Internal Medicine 11/11/19 Charleen Lynne MD [address] [place] [address]30985 Assigned Cancer Care Provider 12/23/19 03/23/21 Shakira Chapa MD INACTIVE IN [place] OF 06/29/2020 Assigned Surgical Provider 12/23/19 07/14/20 Zoltan Eric DPM [address] [facility] [address] [place] [address] Assigned Musculoskeletal Provider 12/23/19 07/26/21 Delvin Bob MD 420 [facility] 250 [place] [address] Assigned PCP 12/08/19 02/14/22 Maximo Mathis DO 909 [place] [address] Assigned Neuroscience Provider 02/12/20 08/09/21 Sherri Kingston PA 909 [facility] Urology [place], [place] [address] Assigned Surgical Provider 07/15/20 10/06/20 Pedro Winchester MD 6405 [place] [address] Assigned Heart and Vascular Provider 08/05/20 01/31/22 Shakira Chapa MD I[place]CTIVE IN [place] OF 06/29/2020 Assigned Surgical Provider 10/07/20 10/13/20 Jovanni Dempsey MD 600 [place], [place] 7[address] Assigned Nephrology Provider 03/24/21 03/14/22 Jovanni Dempsey MD 600 [place] [address] Assigned Nephrology Provider 03/15/22 03/21/22 Len Hooks MD 717 [facility] 353 [place] [address] Assigned Nephrology Provider 03/22/22 12/26/22 Delvin Bob MD [address] [place] [address] 250 [place] [address] Assigned PCP 04/26/22 12/12/22 Love Hernandez PA-C 6363 [facility] 500 [place], [place] [address] Physician Vaccine Customer Representative Urology 12/01/22 Conrado Evans MD [address] [place] [address] Assigned Nephrology Provider 12/27/22 06/21/24 Love Hernandez PA-C 6363 [facility] 500 [place] [address] Assigned Surgical Provider 01/17/23 [place] [address] [place], [place] [address] Assigned Gastroenterology Provider 07/23/23 Everardo Grant MD [address] [place] [address] Physician Infectious Diseases 09/23/23 Rey Billings MD [address] [place] [address] Assigned Infectious Disease Provider 10/23/23 Conrado Evans MD [address] [place] [address] Nephrology 08/25/24 Delvin Lopez MD 9 [place] [address] Nephrology 08/25/24 Carissa Putnam RN [facility] [address] [place] [address] Specialty Hydramatic Specialist Pharmacy 10/10/24 10/10/24 documented as of this encounter
--- OUTSIDE RECORDS SUMMARY | 2024-10-13 08:56 | XMS_ITS | Encounter Summary ---
Author Organization [facility] Address [address] [place] [address] Care Team Providers Care Sales Representative Education Courses Name Role Phone Robert Marley MD Primary Care Provider [phone] Tayo Lacey MD Unavailable [phone] Christopher Quiroga MD Unavailable Lance Simpson PA-C Unavailable Sherri Kingston Unavailable [phone] Delvin Bob MD Unavailable Love Hernandez-C Unavailable Love Hernandez-C Unavailable [phone] Gordy Nickerson MD Unavailable Everardo Grant MD Unavailable Rey Billings MD Unavailable [phone] Conrado Evans MD Unavailable [phone] Delvin Lopez MD Unavailable [phone] Carissa Putnam RN Unavailable [phone] Encounter Details Date Type Department Care Team (Late st Contact Info) Description 10/04/2024 Results Follow-Up [facility] 909 [place] [address] Susan Pelletier, RN Dx: EBV (Patrick-Cole virus) viremia Social History Tobacco [...] on file Legal Sex Female 3:26 AM 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 Gender Identity Not on file Sexual Orientation Not on file Occupation Industry Job Start Date Job End Date Not on file Not on file Not on file Not on file documented as of this encounter Plan of Treatment Upcoming Encounters Date Type Department Care Team (Late st Contact Info) Description 10/25/2024 10:00 AM CDT Virtual Visit [facility] [address] [place] [address] Edith Brito 10/26/2024 8:30 AM CDT Lab [facility] Center [facility] [address] [facility] [place] 200 [place] [phone] Conrado Evans MD 719 [facility] 353 [facility] 1932 [place] [address] documented as of this encounter Visit Diagnoses Diagnosis EBV (Patrick-Cole virus) viremia Infectious mononucleosis documented in this encounter Additional Health Concerns 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, 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 Assessment Noted Time PHQ-9 Depression Total Score: 18 023 10:27 AM 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 documented as of this encounter Care Teams Sales Representative Education Courses Relationship Specialty Start Date End Date Robert Marley MD [facility] [address] [place] [address] PCP - General Family Practice 12/08/10 Tayo Lacey MD [facility] [address] [place] [address] Cardiology 08/30/14 Christopher Quiroga MD [facility] 675 E [facility] 200 [place] [address] Oncology 07/02/16 Lance Simpson PA-C [address] [place] [address] Physician Valve Fitter Physician Valve Fitter 01/07/18 Sherri Kingston PA [address] [place] [address] Urology [place], [place] [address] Physician Valve Fitter Physician Valve Fitter 12/21/18 Delvin Bob MD [address] [place] [address] 250 [place], [place] 523695 Internal Medicine 11/11/19 Love Hernandez PA-C [address] [place] 500 [place], [place] [address] Physician Valve Fitter Urology 12/01/22 Love Hernandez PA-C [address] [place] 500 [place] [address] Assigned Surgical Provider 01/17/23 [place] [address] [place] [address] Assigned Gastroenterology Provider 07/23/23 Everardo Grant MD [address] [place] [address] Physician Infectious Diseases 09/23/23 Rey Billings MD [address] [place] [address] Assigned Infectious Disease Provider 10/23/23 Conrado Evans MD [address] [place] [address] 353 [facility] [address] [place] [address] Nephrology 08/25/24 Delvin Lopez MD [address] [place] [address] 075705 Nephrology 08/25/24 Carissa Putnam RN [facility] [address] [place] [address] 300624 Specialty Relay Shop Tester Pharmacy 10/10/24 documented as of this encounter
--- OUTSIDE RECORDS SUMMARY | 2024-10-13 08:56 | XMS_ITS | Encounter Summary ---
Author Organization [place] Address [address] [place] [address] Care Team Providers Care Paunch Trimmer Name Role Phone Robert Marley MD Primary Care Provider [phone] Tayo Lacey MD Unavailable [phone] Christopher Quiroga MD Unavailable Lance Simpson PA-C Unavailable [phone] Sherri Kingston Unavailable +[phone] Delvin Bob MD Unavailable [phone] Len Hooks MD Unavailable Delvin Bob MD Unavailable +[phone] Love Hernandez-C Unavailable [phone] Conrado Evans MD Unavailable +[phone] Love Hernandez-C Unavailable [phone] Gordy Nickerson MD Unavailable [phone] Everardo Grant MD Unavailable Rey Billings MD Unavailable +[phone] Conrado Evans MD Unavailable +[phone] Delvin Lopez MD Unavailable [phone] Carissa Putnam RN Unavailable +[phone] Encounter Details Date Type Department Care Team (Late st Contact Info) Description 11/18/2022 MyC Medical Advice [facility] 909 [place] [address] Diana Parsons, SONIA Social History Tobacco Use Types Packs/Day Years Used Date Smoking Tobacco: Former Smokeless Tobacco: Never Alcohol Use Standard Drinks/Week Comments No 0 (1 standard drink = 0.6 oz pur e alcohol) PHQ-2 Answer Date Recorded PHQ-2 Score 5 03/12/2022 Adolescent Education Answer Date Record ed Getting School Help Needed Not on file 11/22 Comments No Sex and Gender Information Value Date Recorded Sex Assigned at Not on file Legal Sex Female 3:26 AM CLIENT SERVICE CONSULTANT Gender Identity Not on file Sexual Orientation Not on file Occupation Industry Job Start Date Job End Date Not on file Not on file Not on file Not on file documented as of this encounter Plan of Treatment Upcoming Encounters Date Type Department Care Team (Late Contact Info) Description 10/25/2024 10:00 AM CDT Virtual Visit [facility] [address] [place] [address] Edith Brito 10/26/2024 8:30 AM CDT Lab [facility] [address] [facility] 200 [place] [phone] Conrado Evans MD [address] [place] [address] 353 [facility] 1932 [place] [address] documented as of this encounter Visit Diagnoses Not on filedocumented in this encounter Additional Health Concerns 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 The [place] Department of Health ([facility]) and CDC recommend that we screen this patient to prevent the spread of these organisms within our healthcare facility. Infection Prevention has placed orders for collecting a rectal swab for CP-FUR STYLIST to evaluate if this patient is now a carrier. This patient was identified to have a low risk exposure in which case Contact Precautions are not necessary unless the patient tests positive. Screening is voluntary. Please notify Infection Prevention if the patient declines testing. Additional information and resources can be found on the Infection Prevention MDRO Sharepoint page. 08/04/2023 08/04/2023 02/02/2024 11:39 PM CLIENT SERVICE CONSULTANT Rule Out Parvovirus 09/28/2023 09/28/2023 10/05/19 11:41 PM CDT Assessment Noted Time PHQ-9 Depression Total Score: 18 023 10:27 AM CLIENT SERVICE CONSULTANT documented as of this encounter Care Teams Paunch Trimmer Relationship Specialty Start Date End Date Robert Marley MD [facility] [id number] [place] [address] PCP - General Family Practice 12/08/10 Tayo Lacey MD [facility] [address] [place] [address] Cardiology 08/30/14 Christopher Quiroga MD [facility] 675 [address] [facility] 200 [place] [address] Oncology 07/02/16 Lance Simpson PA-C [address] [place] [address] 153295 Physician Wine Master Physician Wine Master 01/07/18 Sherri Kingston PA [address] [place] [address] [place] [address] Physician Wine Master Physician Wine Master 12/21/18 Delvin Bob MD 420 [facility] 250 [place] [address] Internal Medicine 11/11/19 Len Hooks MD [address] [place] [address] 353 [place] [address] Assigned Nephrology Provider 03/22/22 12/26/22 Delvin Bob MD 420 [facility] 250 [place] [address] Assigned PCP 04/26/22 12/12/22 Love Hernandez PA-C 6363 [facility] 500 [place] [address] Physician Wine Master Urology 12/01/22 Conrado Evans MD [address] [place] [address] 353 [facility] 1932 [place] [address] Assigned Nephrology Provider 12/27/22 06/21/24 Love Hernandez PA-C [facility] 500 [place] [address] Assigned Surgical Provider 01/17/23 [place] [address] [place] [address] Assigned Gastroenterology Provider 07/23/23 Everardo Grant MD 909 [place] [address] Physician Infectious Diseases 09/23/23 Rey Billings MD [address] [place] [place] [address] Assigned Infectious Disease Provider 10/23/23 Conrado Evans MD [address] [place] [address] 353 [facility] 1932 [place] [address] Nephrology 08/25/24 Delvin Lopez MD [address] [place] [place] [address] Nephrology 08/25/24 Carissa Putnam RN [facility] [address] [place] [address] Specialty Rod Piler Pharmacy 10/10/24 documented as of this encounter
--- OUTSIDE RECORDS SUMMARY | 2024-10-13 08:56 | XMS_ITS | Encounter Summary ---
Author Organization [place] Address [address] [place] [address] Care Team Providers Care Ship'S Master Name Role Phone Robert Marley MD Primary Care Provider [phone] Tayo Lacey MD Unavailable [phone] Christopher Quiroga MD Unavailable Lance Simpson PA-C Unavailable [phone] Sherri Kingston Unavailable [phone] Delvin Bob MD Unavailable [phone] Love Hernandez-C Unavailable [phone] Love Hernandez-C Unavailable Gordy Nickerson MD Unavailable [phone] Everardo Grant MD Unavailable Rey Billings MD Unavailable [phone] Conrado Evans MD Unavailable [phone] Delvin Lopez MD Unavailable [phone] Carissa Putnam RN Unavailable [phone] Encounter Details Date Type Department Care Team (Late st Contact Info) Description 10/07/2024 [facility] [address] [place] [address] Hobot, Valeri, MUD MIXER EBV (Patrick-Cole virus) viremia Social History Tobacco [...] on file Legal Sex 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 Gender Identity Not on file Sexual [...] Description 10/25/2024 10:00 AM CDT Virtual Visit [facility] [address] [place] [address] Edith Brito 10/26/2024 8:30 AM CDT Lab [facility] C[facility] [address] [facility] 200 [place] [address] Conrado Evans MD 717 [facility] 353 [facility] [address] [place] [address] documented as of this encounter Visit Diagnoses Diagnosis EBV (Patrick-Cole virus) viremia Infectious mononucleosis documented in this encounter Additional Health Concerns 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, 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 Assessment Noted Time PHQ-9 Depression Total Score: 18 023 10:27 AM CHILD CARE CENTRE MANAGER documented as of this encounter Care Teams Ship'S Master Relationship Specialty Start Date End Date Robert Marley MD [facility] [id number] [place] [address] PCP - General Family Practice 12/08/10 Tayo Lacey MD [facility] [id number] [place] [address] Cardiology 08/30/14 Christopher Quiroga MD PA ONCOLOGY HEMATOLOGY [address] [place] [address] Oncology 07/02/16 Lance Simpson PA-C [address] [place] [address] 674255 Physician Cna Ltc Physician Cna Ltc 01/07/18 Sherri Kingston PA [address] [place] [address] [place]rology [place], [place] 6309[address] Physician Cna Ltc Physician Cna Ltc 12/21/18 Delvin Bob MD [address] [place] [address] 250 [place] [address] Internal Medicine 11/11/19 Love Hernandez PA-C [address] [place] [address] [place], [place] [address] Physician Cna Ltc Urology 12/01/22 Love Hernandez PA-C [address] [place] [address] [place], [place] [address] Assigned Surgical Provider 01/17/23 [place] [address] [place], [place] [address] Assigned Gastroenterology Provider 07/23/23 Everardo Grant MD [address] [place] [address] Physician Infectious Diseases 09/23/23 Rey Billings MD 909 [place], [place] 1817[address] Assigned Infectious Disease Provider 10/23/23 Conrado Evans MD 717 [facility] [place] 353 [facility] [address] [place], [place] [address] Nephrology 08/25/24 Delvin Lopez MD 909 [place], [place] [address]655 Nephrology 08/25/24 Carissa Putnam, RN [facility] 711 [place] [address] Specialty Library Technology Instructor Pharmacy 10/10/24 documented as of this encounter
--- OUTSIDE RECORDS SUMMARY | 2024-10-13 08:56 | XMS_ITS | Encounter Summary ---
Author Organization [place] Address [address] [place] [address] Care Team Providers Care Deputy Chief Counsel Name Role Phone Robert Marley MD Primary Care Provider [phone] Berna Kruse MD Unavailable [phone] Roxanna Armas RN Unavailable [phone] Irish Kim RN Unavailable [phone] Chana Cheng MD Unavailable [phone] Anoop Garcia MD Unavailable Unavailable Barbara Carlson MD Unavailable Tayo Lacey MD Unavailable [phone] TuBasil shaikh MD Unavailable MagedCharleen MD Unavailable [phone] Olimpia Williamson RN Unavailable [phone] Rin Dewitt RN Unavailable [phone] Rin Dewitt RN Unavailable [phone] Qian Rodriguez MD Unavailable [phone] Sherri Kingston Unavailable [phone] Olimpia Williamson RN Unavailable [phone] Olimpia Williamson RN Unavailable [phone] Christopher Quiroga MD Unavailable Claudia Yousif RN Unavailable Lance Simpson PA-C Unavailable Olimpia Williamson RN Unavailable [phone] Sherri Kingston PA Unavailable Delvin Bob MD Unavailable Charleen Lynne MD Unavailable [phone] ChapaShakira tellez MD Unavailable Unav ailable Hernesto Zoltan ADRIANM Unavailable +[phone] Lisbeth, Delvin England MD Unavailable +[phone] Maximo Mathis DO Unavailable + Sherri Kingston Unavailable Pedro Winchester MD Unavailable [phone] ChapaShakira zelaya MD Unavailable Unav ailable Jovanni Dempsey MD Unavailable Jovanni Dempsey MD Unavailable Len Hooks MD Unavailable Delvin Bob MD Unavailable [phone] Love Hernandez-C Unavailable [phone] Conrado Evans MD Unavailable [phone] Love Hernandez PA-C Unavailable [phone] Gordy Nickerson MD Unavailable [phone] Everardo Grant MD Unavailable Rey Billings MD Unavailable [phone] Conrado Evans MD Unavailable Delvin Lopez MD Unavailable [phone] Carissa Putnam RN Unavailable [phone] Encounter Details Date Type Department Care Team (Late Contact Info) Description 04/05/2014 External Order Results [facility] 516 [facility] 88 [place] [id number] Social History Tobacco Use Types Packs/Day Years Used Date Smoking Tobacco: Former Smokeless Tobacco: Never Alcohol Use Standard Drinks/Week Comments No 0 (1 standard drink = 0.6 oz pur e alcohol) Comments No Sex and Gender Information Value Date Recorded Sex Assigned at Not on file Legal Sex Female 3:26 AM 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 Medical Ctr [facility] [address] [facility] 200 [place] [address] Conrado Evans MD [address] [place] [address] 353 [facility] 1932 [place] [address] documented as of this encounter Procedures Procedure Name Priority Date/Time Associated Diagnosis Comments EXTERNAL LAB RESULTS Routine 04/03/2014 8:25 AM SYSTEMS SECURITY ANALYST documented in this encounter Results * (ABNORMAL) TXP External Lab Result (04/03/2014 8:25 AM SYSTEMS SECURITY ANALYST) Amylase (External) 50 18 - 89 U/L LABDE SCAN Phosphorus (External) 2.7 2.5 - 4.5 MG/DL LABDE SCAN Magnesium (External) 1.6 1.5 - 2.6 MG/DL LABDE SCAN Lipase Level (External) 214 123 - 300 LABDE SCAN WBC Count (External) 4.84(L) 5.00 - 10.00 K/UL LABDE SCAN RBC Count (External) 3.79(L) 3.90 - 5.03 LABDE SCAN Hemoglobin (External) 10.5(L) 12.0 - 15.5 GM/DL LABDE SCAN Hematocrit (External) 34.4(L) 34.9 - 44.5 LABDE SCAN MCH (External) 28 27 - 34 PG LABDE SCAN MCHC (External) 31(L) 32 - 36 GM/DL LABDE SCAN Platelet Count (External) 240 150 - 450 LABDE SCAN % Neutrophils (External) 82.4(H) 50.0 - 70.0 % LABDE SCAN % Lymphocytes (External) 9.5(L) 25.0 - 45.0 LABDE SCAN % Monocytes (External) 4.6 0.00 - 11.0 % LABDE SCAN % Basophils (External) 0.8 0.0 - 3.0 % LABDE SCAN Absolute Neutrophils (External) 3.99 1.70 - 7.00 K/UL LABDE SCAN Absolute Lymphocytes (External) 0.46(L) 0.90 - 2.90 K/UL LABDE SCAN Absolute Monocytes (External) 0.23(L) 0.30 - 0.94 K/UL LABDE SCAN Absolute Basophils (External) 0.04 0.00 - 0.20 K/UL LABDE SCAN % Immature Granulocytes (External) 0.2 % LABDE SCAN Absolute Immature Granulocytes (External) 0.01 K/UL LABDE SCAN Hemoglobin A1C (External) 5.5 4.8 - 5.9 LABDE SCAN Mycophenolic Acid (External) <0.5(L) 1.0 - 3.5 ug/mL LABDE SCAN MPA Glucuronide (External) <5.0(L) 35.0 - 100.0 ug/mL LABDE SCAN Everolimus (External) 7.0 ng/ml LABDE SCAN 04/03/2014 8:25 AM SYSTEMS SECURITY ANALYST Narrative SILVANATOYIN DELICIA - 04/06/2014 1:19 PM SYSTEMS SECURITY ANALYST Verified by Tayla Dodson on 04/05/2014. Verified by Pao Oswald on 04/06/2014. us Patient Reported LABORATORY Edited Result - Final SILVANAEZE PFT LABDE SCAN documented in this encounter [...] the IP on-call for review. Meena Torres [facility] Infection Prevention 07/11/2019 at 3:56 PM [...] Out COVID-19 04/19/2020 04/19/2020 04/19/2020 1:56 PM SYSTEMS SECURITY ANALYST Rule Out COVID-19 04/19/2020 04/20/2020 04/20/2020 6:34 AM SYSTEMS SECURITY ANALYST Rule Out COVID-19 12/15/2020 12/15/2020 12/15/2020 4:33 PM CDT Rule Out C-difficile 01/06/2021 01/08/2021 021 11:43 AM SYSTEMS SECURITY ANALYST Rule Out C-difficile 07/10/2021 07/10/2021 022 5:56 PM CDT Rule Out C-difficile 07/16/2023 07/16/2023 024 9:21 PM CDT Rule Out Parvovirus 07/16/2023 07/16/2023 07/19/19 24 12:29 PM CDT Parvovirus 07/16/2023 07/16/2023 10/03/2024 4:22 PM CDT [id number] Comment:This patient was exposed to a person with a known CP-PLATE WASHER and has the potential for having acquired this pathogen of concern. The [facility]) and CDC recommend that we screen this patient to prevent the spread of these organisms within our healthcare facility. Infection Prevention has placed orders for collecting a rectal swab for CP-PLATE WASHER to evaluate if this patient is now a carrier. This patient was identified to have a low risk exposure in which case Contact Precautions are not necessary unless the patient tests positive. Screening is voluntary. Please notify Infection Prevention if the patient declines testing. Additional information and resources can be found on the Infection Prevention MDRO Sharepoint page. 08/04/2023 08/04/2023 02/02/2024 11:39 PM SYSTEMS SECURITY ANALYST Rule Out Parvovirus 09/28/2023 09/28/2023 10/05/19 24 11:41 PM CDT documented as of this encounter Care Teams Deputy Chief Counsel Relationship Specialty Start Date End Date Robert Marley MD [facility] [id number] [place] [address] PCP - General Family Practice 12/08/10 Berna Kruse MD [facility] [address] [place] [address] Nephrology 07/15/12 05/25/14 Roxanna Armas, RN Registered Nurse Transplant 07/15/12 05/25/14 Irish Kim RN Registered Nurse Transplant 05/26/14 09/20/[address] [facility] [address] [place] [address] Nephrology 05/26/14 11/12/[address] [facility] [address] [place] [address] Transplant 05/26/14 02/02/18 Barbara Carlson MD [address] [place] [phone] Referring Physician Nephrology 08/30/14 11/12/15 Tayo Lacey MD [address] [place] [phone] Cardiology 08/30/14 Basil Plummer MD [address] [place] [address] [id number] Neurology 05/09/15 04/23/16 Charleen Lynne MD [address] [place] [address] [phone] MD Oncology 06/14/15 12/19/18 Olimpia Williamson, SONIA Nurse Coordinator Oncology 06/14/15 04/23/16 Rin Dewitt RN Nurse Coordinator Neurology 07/24/15 04/23/16 Rin Dewitt RN Nurse Coordinator Neurology 10/25/15 10/12/17 Qian Rodriguez MD 717 [facility] 353 [place] [address] Nephrology 11/13/15 06/16/16 Sherri Kingston PA 420 [facility] 394 [place], [place] 3[address] Physician [employer] Professor Physician [employer] Professor 03/20/16 Olimpia Williamson, RN Nurse Coordinator Oncology 06/26/16 06/26/16 Olimpia Williamson, RN Nurse Coordinator Oncology 06/26/16 06/16/18 Christopher Quiroga MD [place] [facility]AT[facility] 5 [facility] 200 [place] [address] Oncology 07/02/16 Claudia Yousif RN Nurse Coordinator Gastroenterology 02/09/17 09/16/22 Lance Simpson PA-C 909 [place], [place] 0[address] Physician [employer] Professor Physician [employer] Professor 01/07/18 Olimpia Williamson, RN Specialty Can Cutter Hematology & Oncology 05/06/18 12/19/18 Sherri Kingston PA 909 [facility] [place], [place] 302235 Physician [employer] Professor Physician [employer] Professor 12/21/18 Delvin Bob MD 420 [facility] 250 [place] [address] Internal Medicine 11/11/19 Charleen Lynne MD 909 [place] [address] Assigned Cancer Care Provider 12/23/19 03/23/21 Shakira Chapa MD INACTIVE IN [place] OF 06/29/2020 Assigned Surgical Provider 12/23/19 07/14/20 Zoltan Eric DPM [address] [facility] [address] [place] [address] Assigned Musculoskeletal Provider 12/23/19 07/26/21 Delvin Bob MD 420 [facility] 250 [place] [address] Assigned PCP 12/08/19 02/14/22 Maximo Mathis DO 9 [place] [address] Assigned Neuroscience Provider 02/12/20 08/09/21 Sherri Kingston PA [address] [place] [address] [place] [address] Assigned Surgical Provider 07/15/20 10/06/20 Pedro Winchester MD [address] [place] [address] Assigned Heart and Vascular Provider 08/05/20 01/31/22 Shakira Chapa MD INACTIVE IN [place] 06/29/2020 Assigned Surgical Provider 10/07/20 10/13/20 Jovanni Dempsey MD 600 [place], [place] 644402 Assigned Nephrology Provider 03/24/21 03/14/22 Jovanni Dempsey MD 600 [place], [place] 7865[address] Assigned Nephrology Provider 03/15/22 03/21/22 Len Hooks MD [address] [place] [address] [place], [place] [address] Assigned Nephrology Provider 03/22/22 12/26/22 Delvin Bob MD 420 [facility] 250 [place], [place] [address] Assigned PCP 04/26/22 12/12/22 Love Hernandez PA-C [address] [place] [address] [place], [place] [address] Physician [employer] Professor Urology 12/01/22 Conrado Evans MD [address] [place] 353 [facility] 1932 [place], [place] [address] Assigned Nephrology Provider 12/27/22 06/21/24 Love Hernandez PA-C [address] [place] [address] [place], [place] [address] Assigned Surgical Provider 01/17/23 [place] [address] [place] [address], [place] [address] Assigned Gastroenterology Provider 07/23/23 Everardo Grant MD [address] [place] [address] Physician Infectious Diseases 09/23/23 Rey Billings MD [address] [place] [address] Assigned Infectious Disease Provider 10/23/23 Conrado Evans MD [address] [place] [address] 353 [facility] [address] [place] [address] Nephrology 08/25/24 Delvin Lopez MD [address] [place] [address] Nephrology 08/25/24 Carissa Putnam RN [facility] 711 [place] [address] Specialty Can Cutter Pharmacy 10/10/24 10/10/24 documented as of this encounter
--- OUTSIDE RECORDS SUMMARY | 2024-10-13 08:56 | XMS_ITS | Encounter Summary ---
Author Organization [facility] Address [address] [place] [address] Care Team Providers Care Air Grinder Name Role Phone Robert Marley MD Primary Care Provider [phone] Berna Kruse MD Unavailable [phone] Roxanna Armas RN Unavailable [phone] Irish Kim RN Unavailable [phone] Chana Cheng MD Unavailable [phone] Anoop Garcia MD Unavailable Unavailable Barbara Carlson MD Unavailable Tayo Lacey MD Unavailable [phone] TuBasil shaikh MD Unavailable MagedCharleen MD Unavailable [phone] Olimpia Williamson RN Unavailable [phone] Rin Dewitt RN Unavailable [phone] Rin Dewitt RN Unavailable [phone] Qian Rodriguez MD Unavailable [phone] Sherri Kingston Unavailable [phone] Olimpia Williamson RN Unavailable [phone] Olimpia Williamson RN Unavailable [phone] Christopher Quiroga MD Unavailable Claudia Yousif RN Unavailable Lance Simpson PA-C Unavailable +[phone] Olimpia Williamson RN Unavailable [phone] Sherri Kingston PA Unavailable Delvin Bob MD Unavailable Charleen Lynne MD Unavailable [phone] ChapaShakira tellez MD Unavailable Unav ailable Hernesto Zoltan ADRIANM Unavailable +[phone] Lisbeth, Delvin England MD Unavailable Maximo Mathis DO Unavailable + Sherri Kingston Unavailable [phone] Pedro Winchester MD Unavailable [phone] ChapaShakira zelaya MD Unavailable Unav ailable Jovanni Dempsey MD Unavailable +[phone] Jovanni Dempsey MD Unavailable +[phone] Len Hooks MD Unavailable Delvin Bob MD Unavailable [phone] Love Hernandez-C Unavailable [phone] Conrado Evans MD Unavailable [phone] Love Hernandez PA-C Unavailable [phone] Gordy Nickerson MD Unavailable Everardo Grant MD Unavailable Rey Billings MD Unavailable [phone] Conrado Evans MD Unavailable Delvin Lopez MD Unavailable [phone] Carissa Putnam RN Unavailable [phone] Encounter Details Date Type Department Care Team (Late Contact Info) Description 03/31/2014 External Order Results [facility] 2[facility], Clinic [address] [address] [facility] [address] [place] [phone] Social History Tobacco Use Types Packs/Day Years Used Date Smoking Tobacco: Former Smokeless Tobacco: Never Alcohol Use Standard Drinks/Week Comments No 0 (1 standard drink = 0.6 oz pur e alcohol) Comments No Sex and Gender Information Value Date Recorded Sex Assigned at Not on file Legal Sex Female 3:26 AM PLEATING MACHINE OPERATOR Gender Identity Not on file Sexual Orientation Not on file Occupation Industry Job Start Date Job End Date Not on file Not on file Not on file Not on file documented as of this encounter Plan of Treatment Upcoming Encounters Date Type Department Care Team (Late Contact Info) Description 10/25/2024 10:00 AM CDT Virtual Visit [facility] [address] [place] [address] Edith Brito 10/26/2024 8:[address] [facility] [address] [facility] 200 [place] [phone] Conrado Evans MD [address] [place] [address] 353 [facility] 1932 [place] [address] documented as of this encounter Procedures Procedure Name Priority Date/Time Associated Diagnosis Comments EXTERNAL LAB RESULTS Routine 03/30/2014 8:30 AM PLEATING MACHINE OPERATOR documented in this encounter Results * (ABNORMAL) TXP External Lab Result (03/30/2014 8:30 AM PLEATING MACHINE OPERATOR) Calcium (External) 9.7 6.4 - 10.6 MG/DL LABDE SCAN Urea Nitrogen (External) 18 5 - 24 MG/Dl LABDE SCAN Creatinine (External) 0.8 0.5 - 1.5 MG/DL LABDE SCAN Glucose (External) 93 0.160 - 115 mg/dL LABDE SCAN Sodium (External) 143 135 - 149 MMOL/L LABDE SCAN Potassium (External) 3.7 3.5 - 5.1 mMOL/L LABDE SCAN Chloride (External) 108 96 - 114 MMOL/L LABDE SCAN CO2 (External) 25 LABDE SCAN Lipase Level (External) 80 23 - 300 U/L LABDE SCAN WBC Count (External) 4.45(L) 5.00 - 10.00 LABDE SCAN Hemoglobin (External) 10.7(L) 12.0 - 15.5 GM/DL LABDE SCAN Hematocrit (External) 35.1 34.9 - 44 % LABDE SCAN MCV (External) 89 82 - 98 FL LABDE SCAN MCH (External) 27 1.27 - 34 PG LABDE SCAN MCHC (External) 31(L) 32 - 36 GM/DL LABDE SCAN Platelet Count (External) 298 K/UL LABDE SCAN % Neutrophils (External) 79.4(H) 50.0 - 70.0 % LABDE SCAN % Lymphocytes (External) 10.8(L) 25.0 - 45.0 % LABDE SCAN % Monocytes (External) 6.5 0.00 - 11.0 % LABDE SCAN % Basophils (External) 1.3 0.0 - 3.0 % LABDE SCAN Absolute Neutrophils (External) 3.53 LABDE SCAN Absolute Lymphocytes (External) 0.48(L) 0.90 - 2.90 K/UL LABDE SCAN Absolute Monocytes (External) 0.29(L) 0.30 - 0.90 K/UT LABDE SCAN Absolute Basophils (External) 0.06 0.00 - 0.20 K/UL LABDE SCAN % Immature Granulocytes (External) 0.01 % LABDE SCAN Amylase (External) 69 18 - 89 u/l LABDE SCAN 03/30/2014 8:30 AM PLEATING MACHINE OPERATOR Narrative BOBBY PFT - 04/10/2014 1:02 PM PLEATING MACHINE OPERATOR Verified by Velvet Freeman on 03/31/2014. Verified by Ashlyn Reynoso on 04/10/2014. us Patient Reported LABORATORY Edited [...] the IP on-call for review. Meena Torres [facility] Infection Prevention 07/11/2019 at [...] Out COVID-19 04/19/2020 04/19/2020 04/19/2020 1:56 PM PLEATING MACHINE OPERATOR Rule Out COVID-19 04/19/2020 04/20/2020 04/20/2020 6:34 AM PLEATING MACHINE OPERATOR Rule Out COVID-19 12/15/2020 12/15/2020 12/15/2020 4:33 PM CDT Rule Out C-difficile 01/06/2021 01/08/2021 021 11:43 AM PLEATING MACHINE OPERATOR Rule Out C-difficile 07/10/2021 07/10/2021 022 5:56 PM CDT Rule Out C-difficile 07/16/2023 07/16/2023 024 9:21 PM CDT Rule Out Parvovirus 07/16/2023 07/16/2023 07/19/19 24 12:29 PM CDT Parvovirus 07/16/2023 07/16/2023 10/03/2024 4:22 PM CDT [id number] Comment:This patient was exposed to a person with a known CP-JAVA MOBILE DEVELOPER and has the potential for having acquired this pathogen of concern. The [place] Department of Health ([facility]) and CDC recommend that we screen this patient to prevent the spread of these organisms within our healthcare facility. Infection Prevention has placed orders for collecting a rectal swab for CP-JAVA MOBILE DEVELOPER to evaluate if this patient is now a carrier. This patient was identified to have a low risk exposure in which case Contact Precautions are not necessary unless the patient tests positive. Screening is voluntary. Please notify Infection Prevention if the patient declines testing. Additional information and resources can be found on the Infection Prevention [employer] Sharepoint page. 08/04/2023 08/04/2023 02/02/2024 11:39 PM PLEATING MACHINE OPERATOR Rule Out Parvovirus 09/28/2023 09/28/2023 10/05/19 24 11:41 PM CDT documented as of this encounter Care Teams Air Grinder Relationship Specialty Start Date End Date Robert Marley MD [address] [address] PCP - General Family Practice 12/08/10 Berna Kruse MD [facility] [address] [place] [address] Nephrology 07/15/12 05/25/14 Roxanna Armas, RN Registered Nurse Transplant 07/15/12 05/25/14 Irish Kim RN Registered Nurse Transplant 05/26/14 09/20/[address] [facility] [address] [place] [address] Nephrology 05/26/14 11/12/[address] [facility] [address] [place] [address] MD Transplant 05/26/14 02/02/18 Barbara Carlson MD [address] [place] [phone] Referring Physician Nephrology 08/30/14 11/12/15 Tayo Lacey MD [address] [place] [phone] Cardiology 08/30/14 Basil Plummer MD 909 [place], [place] [address] Neurology 05/09/15 04/23/16 Charleen Lynne MD 909 [place], [place] [address] MD Oncology 06/14/15 12/19/18 Olimpia Williamson RN Nurse Coordinator Oncology 06/14/15 04/23/16 Rin Dewitt RN Nurse Coordinator Neurology 07/24/15 04/23/16 Rin Dewitt RN Nurse Coordinator Neurology 10/25/15 10/12/17 Qian Rodriguez MD 717 [facility] [place] 353 [place] [address] Nephrology 11/13/15 06/16/16 Sherri Kingston PA 420 [facility] 394 [place], [place] [address] Physician First Press Operator Physician First Press Operator 03/20/16 Olimpia Williamson, RN Nurse Coordinator Oncology 06/26/16 06/26/16 Olimpia Williamson, RN Nurse Coordinator Oncology 06/26/16 06/16/[address] [facility]Y [address] [facility] 200 [place], [place] [address] Oncology 07/02/16 Claudia Yousif RN Nurse Coordinator Gastroenterology 02/09/17 09/16/22 Lance Simpson PA-C 9 [place], [place] [address] Physician First Press Operator Physician First Press Operator 01/07/18 Olimpia Williamson, RN Specialty Drafter Engineering Hematology & Oncology 05/06/18 12/19/18 Sherri Kingston PA 909 [facility] Urology [place], [place] 4[address] Physician First Press Operator Physician First Press Operator 12/21/18 Delvin Bob MD 420 [facility] 250 [place], [place] 867875 Internal Medicine 11/11/19 Charleen Lynne MD 909 [place] [address] Assigned Cancer Care Provider 12/23/19 03/23/21 Shakira Chapa MD [place] 06/29/2020 Assigned Surgical Provider 12/23/19 07/14/20 Zoltan Eric DPM [address] [facility] [address] [place] [address] Assigned Musculoskeletal Provider 12/23/19 07/26/21 Delvin Bob MD [address] [place] [address] 250 [place], [place] [address]115 Assigned PCP 12/08/19 02/14/22 Maximo Mathis DO 909 [place], [place] [address]275 Assigned Neuroscience Provider 02/12/20 08/09/21 Sherri Kingston PA 909 [facility] Urology [place], [place] [address] Assigned Surgical Provider 07/15/20 10/06/20 Pedro Winchester MD [address] [place] [address] Assigned Heart and Vascular Provider 08/05/20 01/31/22 Shakira Chapa MD [place] 06/29/2020 Assigned Surgical Provider 10/07/20 10/13/20 Jovanni Dempsey MD 600 [place], [place] [address] Assigned Nephrology Provider 03/24/21 03/14/22 Jovanni Dempsey MD 600 [place], [place] [address] Assigned Nephrology Provider 03/15/22 03/21/22 Len Hooks MD [address] [facility] [address] [facility] [place] 353 [place], [place] [address] Assigned Nephrology Provider 03/22/22 12/26/22 Delvin Bob MD [address] [place] [address] [facility] 250 [place], [place] [address] Assigned PCP 04/26/22 12/12/22 Love Hernandez PA-C [address] [place] 500 [facility] [place] [address] Physician First Press Operator Urology 12/01/22 Conrado Evans MD [address] [place] 353 [facility] 1932 [place] [address] Assigned Nephrology Provider 12/27/22 06/21/24 Love Hernandez PA-C [address] [place] 500 [facility] [place] [address]175 Assigned Surgical Provider 01/17/23 [place] [address] [facility] [place] [address] Assigned Gastroenterology Provider 07/23/23 Everardo Grant MD 909 [place], [place] [address] Physician Infectious Diseases 09/23/23 Rey Billings MD [address] [place] [address]7745 Assigned Infectious Disease Provider 10/23/23 Conrado Evans MD [address] [place] [address] [place] [facility] [address] [place], [place] 6[address] Nephrology 08/25/24 Delvin Lopez MD [address] [place] [address] 914735 Nephrology 08/25/24 Carissa Putnam, RN [facility] 711 [place], [place] [address]34 Specialty Drafter Engineering Pharmacy 10/10/24 10/10/24 documented as of this encounter
--- OUTSIDE RECORDS SUMMARY | 2024-10-13 08:56 | XMS_ITS | Encounter Summary ---
Author Organization [facility] Address [address] [place] [address] Care Team Providers Care Sorority Supervisor Name Role Phone Robert Marley MD Primary Care Provider [phone] Tayo Lacey MD Unavailable [phone] Christopher Quiroga MD Unavailable Lance Simpson-C Unavailable Sherri Kingston Unavailable [phone] Delvin Bob MD Unavailable Love HernandezC Unavailable Conrado Evans MD Unavailable [phone] Love Hernandez-C Unavailable Gordy Nickerson MD Unavailable [phone] Everardo Grant MD Unavailable Rey Billings MD Unavailable [phone] Conrado Evans MD Unavailable Delvin Lopez MD Unavailable [phone] Carissa Putnam RN Unavailable [phone] Encounter Details Date Type Department Care Team (Late st Contact Info) Description 02/11/2023 [facility] [address] [place] [address] Diana Parsons, RN Social History Tobacco Use Types Packs/Day Years Used Date Smoking Tobacco: Former Smokeless Tobacco: Never Alcohol Use Standard Drinks/Week Comments No 0 (1 standard drink = 0.6 oz pur e alcohol) PHQ-2 Answer Date Recorded PHQ-2 Score 0 01/06/2023 Adolescent Education Answer Date Record ed Getting School Help Needed Not on file 11/22 Comments No Sex and Gender Information Value Date Recorded Sex Assigned at Not on file 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 Gender Identity Not on file Sexual Orientation Not on file Occupation Industry Job Start Date Job End Date Not on file Not on file Not on file Not on file documented as of this encounter Plan of Treatment Upcoming Encounters Date Type Department Care Team (Late st Contact Info) Description 10/25/2024 10:00 AM CDT Virtual Visit [facility] [address] [place] [address] Edith Brito 10/26/2024 8:30 AM CDT Lab [facility] Medical Ctr [facility] [address] [facility] 200 [place] [address] Conrado Evans MD 717 [facility] 353 [facility] 1932 [place] [address] documented as of this encounter Visit Diagnoses Not on filedocumented in this encounter Additional Health Concerns 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 The [place] Department of Health ([facility]) and CDC recommend that we screen this patient to prevent the spread of these organisms within our healthcare facility. Infection Prevention has placed orders for collecting a rectal swab for CP-ESTIMATOR to evaluate if this patient is now [...] page. 08/04/2023 08/04/2023 02/02/2024 11:39 PM SHEET SORTER Rule Out Parvovirus 09/28/2023 09/28/2023 10/05/19 11:41 PM CDT Assessment Noted Time PHQ-9 Depression Total Score: 18 023 10:27 AM SHEET SORTER documented as of this encounter Care Teams Sorority Supervisor Relationship Specialty Start Date End Date Robert Marley MD [facility] [address] [place] [address] PCP - General Family Practice 12/08/10 Tayo Lacey MD [facility] [id number] [place] [address] Cardiology 08/30/14 Christopher Quiroga MD [facility] [address] 200 [place] [address] Oncology 07/02/16 Lance Simpson PA-C [address] [place] [address] Physician Developer Advocate Physician Developer Advocate 01/07/18 Sherri Kingston PA [address] [place] [address] Urology [place], [place] [address]65 Physician Developer Advocate Physician Developer Advocate 12/21/18 Delvin Bob MD [address] [place] [address] 250 [place] [address] Internal Medicine 11/11/19 Love Hernandez PA-C 6363 [facility] [place] 500 [place], [place] [address] Physician Developer Advocate Urology 12/01/22 Conrado Evans MD [address] [place] [address] 353 [facility] [address] [place] [address] Assigned Nephrology Provider 12/27/22 06/21/24 Love Hernandez PA-C [address] [facility] 500 [place], [place] [address] Assigned Surgical Provider 01/17/23 [place] [address] [address] [place], [place] [address] Assigned Gastroenterology Provider 07/23/23 Everardo Grant MD [address] [place] [address] Physician Infectious Diseases 09/23/23 Rey Billings MD [address] [place] [address] 630535 Assigned Infectious Disease Provider 10/23/23 Conrado Evans MD [address] [place] [address] 353 [facility] 1932 [place] [address] Nephrology 08/25/24 Delvin Lopez MD 9 [place], [place] [address] Nephrology 08/25/24 Carissa Putnam, RN [facility] 711 [place] [address] Specialty Tactical Air Defense Controller Pharmacy 10/10/24 documented as of this encounter
--- OUTSIDE RECORDS SUMMARY | 2024-10-13 08:56 | XMS_ITS | Encounter Summary ---
Author Organization [facility] Address [address] [place] [address]. [place] [address] Care Team Providers Care Telegraph Repeater Mechanic Name Role Phone Robert Marley MD Primary Care Provider [phone] Tayo Lacey MD Unavailable [phone] Christopher Quiroga MD Unavailable Lance Simpson-C Unavailable [phone] Sherri Kingston Unavailable [phone] Delvin Bob MD Unavailable [phone] Love Hernandez-C Unavailable Love Hernandez-C Unavailable Gordy Nickerson MD Unavailable [phone] Everardo Grant MD Unavailable Rey Billings MD Unavailable [phone] Conrado Evans MD Unavailable [phone] Delvin Lopez MD Unavailable [phone] Carissa Putnam RN Unavailable [phone] Reason for Referral * Specialty Diagnoses / Procedures Referred By Contac t Referred To Contact Diagnoses Anemia, unspecified type [address] [address] Phone: tel: fax: Referral ID Status Reason Start Date Expiration Date Visits Re quested Visits Authorized Question Answer Primary Diagnosis: Anemia in Chronic Kidney Disease CKD Stage 3 (D63.1, N18.3) Secondary Diagnosis: 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 MyChart message sent to pt to expect a call. * Telephone Encounter - Susan Pelletier RN - 10/10/2024 2:17 PM CDT ----- Message from Delvin Carpenter sent at 10/07/2024 6:38 PM CDT ----- Please add repeat cbc and add iron studies, haptoglobin, LDH, smear, retic, vit B12, folate with future labs & ensure anemic clinic f/up thanks documented in this encounter Plan of Treatment Upcoming Encounters Date Type Department Care Team (Late st Contact Info) Description 10/25/2024 10:00 AM CDT Virtual Visit [facility] [address] [place] [address] Edith Brito 10/26/2024 8:30 AM CDT Lab [facility] Ctr [facility] [address] [facility] 200 [place] [address] Conrado Evans MD 712 [facility] 353 [facility] 1932 [place] [address] Scheduled Orders Name Type Priority Associated Diagnoses Orde r Schedule Lactate Dehydrogenase Lab Routine EBV (Patrick-Cole virus) viremia Anemia, unspecified type Expected: 10/10/2024 (Approximate), Expires: 10/10/2025 IRON Lab Routine EBV (Patrick-Cole virus) viremia Anemia, unspecified type Expected: 10/10/2024 (Approximate), Expires: 10/10/2025 IRON AND IRON BINDING CAPACITY Lab Routine EBV (Patrick-Cole virus) viremia Anemia, unspecified type Expected: 10/10/2024 (Approximate), Expires: 10/10/2025 FERRITIN Lab Routine EBV (Patrick-Cole virus) viremia Anemia, unspecified type Expected: 10/10/2024 (Approximate), Expires: 10/10/2025 Folate Lab Routine EBV (Patrick-Cole virus) viremia Anemia, unspecified type Expected: 10/10/2024 (Approximate), Expires: 10/10/2025 Vitamin B12 Lab Routine EBV (Patrick-Cole virus) viremia Anemia, unspecified type Expected: 10/10/2024 (Approximate), Expires: 10/10/2025 Scheduled Referrals Name Type Priority Associated Diagnoses Orde r Schedule ANEMIA REFERRAL (PharmD) Referral Routine: Next available opening Anemia, unspecified type Expected: 10/10/2024 (Approximate), Expires: 10/10/2025 documented as of this encounter Visit Diagnoses Diagnosis Anemia, unspecified 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 documented in this encounter Additional Health Concerns 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, 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 Assessment Noted Time PHQ-9 Depression Total Score: 14 025 3:12 PM CDT documented as of this encounter Care Teams Telegraph Repeater Mechanic Relationship Specialty Start Date End Date Robert Marley MD [facility] [address] [place] [address] PCP - General Family Practice 12/08/10 Tayo Lacey MD [facility] [address] [place] [address] Cardiology 08/30/14 Christopher Quiroga MD [facility] [address] [facility] 200 [place] [address] Oncology 07/02/16 Lance Simpson PA-C [address] [place] [address] Physician Admissions Coordinator Physician Admissions Coordinator 01/07/18 Sherri Kingston PA 909 [facility] [place] [address] Physician Admissions Coordinator Physician Admissions Coordinator 12/21/18 Delvin Bob MD [address] [place] [address] 250 [place] [address] Internal Medicine 11/11/19 Love Hernandez PA-C [address] [place] [address] [place], [place] [address] Physician Admissions Coordinator Urology 12/01/22 Love Hernandez PA-C [address] [place] [address] [place], [place] [address] Assigned Surgical Provider 01/17/23 [place] [address] [address] [place], [place] [address] Assigned Gastroenterology Provider 07/23/23 Everardo Grant MD [address] [place] [address] Physician Infectious Diseases 09/23/23 Rey Billings MD [address] [place] [address] Assigned Infectious Disease Provider 10/23/23 Conrado Evans MD [address] [place] [address] 353 [facility] 1932 [place] [address] Nephrology 08/25/24 Delvin Lopez MD [address] [place] [address] Nephrology 08/25/24 Carissa Putnam, RN [facility] 711 [place] [address] Specialty Hi Teacher Pharmacy 10/10/24 documented as of this encounter
--- OUTSIDE RECORDS SUMMARY | 2024-10-13 08:56 | XMS_ITS | Encounter Summary ---
Author Organization [facility] Address [address] [place] [address] Care Team Providers Care Lead Burner Helper Name Role Phone Robert Marley MD Primary Care Provider Irish Kim RN Unavailable [phone] Chana Cheng MD Unavailable [phone] Anoop Garcia MD Unavailable Unavailable Barbara Carlson MD Unavailable Tayo Lacey MD Unavailable [phone] Basil Plummer MD Unavailable Charleen Lynne MD Unavailable [phone] Olimpia Williamson RN Unavailable [phone] Rin Dewitt RN Unavailable [phone] Rin Dewitt RN Unavailable [phone] Qian Rodriguez MD Unavailable [phone] Sherri Kingston Unavailable [phone] Olimpia Williamson RN Unavailable [phone] Olimpia Williamson RN Unavailable [phone] Christopher Quiroga MD Unavailable Claudia Yousif RN Unavailable Lance Simpson PA-C Unavailable [phone] Olimpia Williamson RN Unavailable [phone] Sherri Kingston Unavailable [phone] Delvin Bob MD Unavailable [phone] Charleen Lynne MD Unavailable [phone] ChapaShakira zelaya MD Unavailable Unav ailable Zoltan Eric DPM Unavailable [phone] Delvin Bob MD Unavailable Maximo Mathis DO Unavailable + Sherri Kingston Unavailable [phone] Pedro Winchester MD Unavailable [phone] ChapaShakira zelaya MD Unavailable Unav ailable Jovanni Dempsey MD Unavailable [phone] Jovanni Dempsey MD Unavailable [phone] Len Hooks MD Unavailable Delvin Bob MD Unavailable Love Hernandez-C Unavailable [phone] Conrado Evans MD Unavailable [phone] Love Hernandez-C Unavailable Grody Nickerson MD Unavailable Everardo Grant MD Unavailable Rey Billings MD Unavailable [phone] Conrado Evans MD Unavailable [phone] Delvin Lopez MD Unavailable [phone] Carissa Putnam RN Unavailable [phone] Encounter Details Date Type Department Care Team (Late st Contact Info) Description 08/23/2014 External Order Results [facility] 2nd Floor, Clinic [address] [id number] Social History Tobacco Use Types Packs/Day Years Used Date Smoking Tobacco: Former Smokeless Tobacco: Never Alcohol Use Standard Drinks/Week Comments No 0 (1 standard drink = 0.6 oz pur e alcohol) Comments No Sex and Gender Information Value Date Recorded Sex Assigned at Not on file Legal Sex Female 3:26 AM EVENTS TRAFFIC CONTROLLER Gender Identity Not on file Sexual Orientation Not on file Occupation Industry Job Start Date Job End Date Not on file Not on file Not on file Not on file documented as of this encounter Progress Notes * Lance Gaona RN - 08/23/2014 11:48 AM CDTQuick Note: Monitor lipase documented in this encounter Plan of Treatment Upcoming Encounters Date Type Department Care Team (Late st Contact Info) Description 10/25/2024 10:00 AM CDT Virtual Visit [facility] [address] [place] [address] Edith Brito 10/26/2024 8:30 AM CDT Lab [facility] [address] [place] [address] [facility] 200 [place] [phone] Conrado Evans MD 717 [facility] 353 [facility] 1932 [place], [place] [address] documented as of this encounter Procedures Procedure Name Priority Date/Time Associated Diagnosis Comments EXTERNAL LAB RESULTS Routine 08/23/2014 8:43 AM CDT documented in this encounter Results * (ABNORMAL) TXP External Lab Result (08/23/2014 8:43 AM CDT) Lipase Level (External) 112 23 - 300 U/L LABDE SCAN Magnesium (External) 2.0 1.5 - 2.6 MG/DL LABDE SCAN Phosphorus (External) 2.8 2.5 - 4.5 MG/DL LABDE SCAN Amylase (External) 74 16 - 89 U/L LABDE SCAN CO2 (External) 27 20 - 32 MMOL/L LABDE SCAN Chloride (External) 106 96 - 114 MMOL/L LABDE SCAN Potassium (External) 4.2 3.6 - 5.1 MMOL/L LABDE SCAN Sodium (External) 141 135 - 149 MMOL/L LABDE SCAN Glucose (External) 93 60 - 115 MG/DL LABDE SCAN Creatinine (External) 0.7 0.5 - 1.5 MG/DL LABDE SCAN Urea Nitrogen (External) 20 5 - 24 MG/DL LABDE SCAN Calcium (External) 9.1 8.4 - 10.6 MG/DL LABDE SCAN Absolute Basophils (External) 0.02 0.00 - 0.20 K/UL LABDE SCAN Absolute Eosinophils (External) 0.29 0.00 - 0.50 K/UL LABDE SCAN Absolute Monocytes (External) 0.57 0.30 - 0.90 K/UL LABDE SCAN Absolute Lymphocytes (External) 0.60(L) 0.90 - 2.90 K/UL LABDE SCAN Absolute Neutrophils (External) 3.38 1.7 - 7.0 K/UL LABDE SCAN % Basophils (External) 0.4 0.0 - 3.0 % LABDE SCAN % Eosinophils (External) 6.0 0.0 - 7.0 % LABDE SCAN % Monocytes (External) 11.7(H) 0.00 - 11.0 % LABDE SCAN % Lymphocytes (External) 12.3(L) 25.0 - 45.0 % LABDE SCAN % Neutrophils (External) 69.6 50.0 - 70.0 % LABDE SCAN Platelet Count (External) 206 150 - 450 K/UL LABDE SCAN MCHC (External) 31(L) 32 - 36 GM/DL LABDE SCAN MCH (External) 27 27 - 34 PG LABDE SCAN MCV (External) 67(L) 82 - 98 FL LABDE SCAN Hematocrit (External) 40.4 34.9 - 44.5 % LABDE SCAN Hemoglobin (External) 12.4 12.0 - 15.5 GM/DL LABDE SCAN RBC Count (External) 4.63 3.9 - 5.03 M/UL LABDE SCAN WBC Count (External) 4.86(L) 5.00 - 10.00 K/UL LABDE SCAN % Immature Granulocytes (External) 0.0 % LABDE SCAN Absolute Immature Granulocytes (External) 0.0 K/UL LABDE SCAN 08/23/2014 8:43 AM CDT Narrative BOBBY PFT - 08/23/2014 10:15 AM CDT Verified by Guerrero Pinzon on 08/23/2014. Verified by Guerrero Pinzon on 08/23/2014. us Patient Reported LABORATORY Edited Result - [...] the IP on-call for review. Meena Torres [facility] Infection Prevention 07/11/2019 [...] Out COVID-19 04/19/2020 04/19/2020 04/19/2020 1:56 PM EVENTS TRAFFIC CONTROLLER Rule Out COVID-19 04/19/2020 04/20/2020 04/20/2020 6:34 AM EVENTS TRAFFIC CONTROLLER Rule Out COVID-19 12/15/2020 12/15/2020 12/15/2020 4:33 PM CDT Rule Out C-difficile 01/06/2021 01/08/2021 021 11:43 AM EVENTS TRAFFIC CONTROLLER Rule Out C-difficile 07/10/2021 07/10/2021 022 5:56 PM CDT Rule Out C-difficile 07/16/2023 07/16/2023 024 9:21 PM CDT Rule Out Parvovirus 07/16/2023 07/16/2023 07/19/19 24 12:29 PM CDT Parvovirus 07/16/2023 07/16/2023 10/03/2024 4:22 PM CDT [id number] Comment:This patient was exposed to a person with a known CP-ABSTRACT MANAGER and has the potential for having acquired this pathogen of concern. The [place] Department of Health ([facility]) and CDC recommend that we screen this patient to prevent the spread of these organisms within our healthcare facility. Infection Prevention has placed orders for collecting a rectal swab for CP-ABSTRACT MANAGER to evaluate if this patient is [...] Sharepoint page. 08/04/2023 08/04/2023 02/02/2024 11:39 PM EVENTS TRAFFIC CONTROLLER Rule Out Parvovirus 09/28/2023 09/28/2023 10/05/19 24 11:41 PM CDT documented as of this encounter Care Teams Lead Burner Helper Relationship Specialty Start Date End Date Robert Marley MD [facility] [address] [place] [address] PCP - General Family Practice 12/08/10 Irish Kim RN Registered Nurse Transplant 05/26/14 09/20/14 Chana Cheng MD [facility] [address] [place] [address] Nephrology 05/26/14 11/12/15 Anoop Garcia MD [facility] [address] [place] [address] Transplant 05/26/14 02/02/18 Barbara Carlson MD [address] [place] [phone] Referring Physician Nephrology 08/30/14 11/12/15 Tayo Lacey MD [address] [place] [phone] Cardiology 08/30/14 Basil Plummer MD [address] [place] [address] Neurology 05/09/15 04/23/16 Charleen Lynne MD [address] [place] [address] 655935 Oncology 06/14/15 12/19/18 Olimpia Williamson, SONIA Nurse Coordinator Oncology 06/14/15 04/23/16 Rin Dewitt RN Nurse Coordinator Neurology 07/24/15 04/23/16 Rin Dewitt RN Nurse Coordinator Neurology 10/25/15 10/12/17 Qian Rodriguez MD 717 [facility] [place] 353 [place], [place] [address] Nephrology 11/13/15 06/16/16 Sherri Kingston PA 420 [facility] 394 [place], [place] [phone] Physician Insulation Batting Machine Operator Physician Insulation Batting Machine Operator 03/20/16 Olimpia Williamson, RN Nurse Coordinator Oncology 06/26/16 06/26/16 Olimpia Williamson, RN Nurse Coordinator Oncology 06/26/16 06/16/18 Christopher Quiroga MD [facility] 675 [facility] 200 [place] [address] MD Oncology 07/02/16 Claudia Yousif RN Nurse Coordinator Gastroenterology 02/09/17 09/16/22 Lance Simpson PA-C [address] [place] [address] Physician Insulation Batting Machine Operator Physician Insulation Batting Machine Operator 01/07/18 Olimpia Williamson, RN Specialty Biomedical Photographer Hematology & Oncology 05/06/18 12/19/18 Sherri Kingston PA [address] [place] [address] Urology [place], [place] [phone] Physician Insulation Batting Machine Operator Physician Insulation Batting Machine Operator 12/21/18 Delvin Bob MD 420 [facility] 250 [place] [address] Internal Medicine 11/11/19 Charleen Lynne MD 909 [place] [address] Assigned Cancer Care Provider 12/23/19 03/23/21 Shakira Chapa MD [place] IN [place] OF 06/29/2020 Assigned Surgical Provider 12/23/19 07/14/20 Zoltan Eric DPM [address] [place] [address] Assigned Musculoskeletal Provider 12/23/19 07/26/21 Delvin Bob MD [address] [place] [address] 250 [place] [address] Assigned PCP 12/08/19 02/14/22 Maximo Mathis DO 909 [place] [address] Assigned Neuroscience Provider 02/12/20 08/09/21 Sherri Kingston PA 909 [facility] Urology [place], [place] 583055 Assigned Surgical Provider 07/15/20 10/06/20 Pedro Winchester MD [address] [place] [address] Assigned Heart and Vascular Provider 08/05/20 01/31/22 Shakira Chapa MD [place]IVE IN [place] OF 06/29/2020 Assigned Surgical Provider 10/07/20 10/13/20 Jovanni Dempsey MD 600 [place] [address] Assigned Nephrology Provider 03/24/21 03/14/22 Jovanni Dempsey MD 600 [place], [place] 578562 Assigned Nephrology Provider 03/15/22 03/21/22 Len Hooks MD [address] [place] [address] [place] [address] Assigned Nephrology Provider 03/22/22 12/26/22 Delvin Bob MD [address] [facility] [address] [place], [place] [address] Assigned PCP 04/26/22 12/12/22 Love Hernandez PA-C [address] [place] [address] [place], [place] [address] Physician Insulation Batting Machine Operator Urology 12/01/22 Conrado Evans MD [address] [place] [address] [facility] [address] [place], [place] 47[address] Assigned Nephrology Provider 12/27/22 06/21/24 Love Hernandez PA-C [address] [place] [address] [place], [place] 25[address] Assigned Surgical Provider 01/17/23 [place] [address] [place] [address] Assigned Gastroenterology Provider 07/23/23 Everardo Grant MD 909 [place], [place] 0[address] Physician Infectious Diseases 09/23/23 Rey Billings MD [address] [place] [id number] Assigned Infectious Disease Provider 10/23/23 Conrado Evans MD 717 [facility] 353 [facility] 1932 [place], [place] [phone] Nephrology 08/25/24 Delvin Lopez MD 9 [place], [place] [address] Nephrology 08/25/24 Carissa Putnam, RN [facility] 711 [place], [place] 8[address] Specialty Biomedical Photographer Pharmacy 10/10/24 10/10/24 documented as of this encounter
--- OUTSIDE RECORDS SUMMARY | 2024-10-13 08:56 | XMS_ITS | Encounter Summary ---
Author Organization [facility] Address [address] [place] [address] Care Team Providers Care Environmental Law Professor Name Role Phone Robert Marley MD Primary Care Provider [phone] Tayo Lacey MD Unavailable [phone] Christopher Quiroga MD Unavailable Lance Simpson PA-C Unavailable Sherri Kingston Unavailable Delvin Bob MD Unavailable Love Hernandez-C Unavailable Love Hernandez-C Unavailable Gordy Nickerson MD Unavailable [phone] Everardo Grant MD Unavailable Rey Billings MD Unavailable [phone] Conrado Evans MD Unavailable Delvin Lopez MD Unavailable [phone] Encounter Details Date Type Department Care Team (Late st Contact Info) Description 10/11/2024 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 Gender Identity Not on file Sexual Orientation Not on file Occupation Industry Job Start Date Job End Date Not on file Not on file Not on file Not on file documented as of this encounter Plan of Treatment Upcoming Encounters Date Type Department Care Team (Late st Contact Info) Description 10/25/2024 10:00 AM CDT Virtual Visit [facility] [address] [place] [address] Edith Brito 10/26/2024 8:30 AM CDT Lab [facility] [address] [facility] [place] 200 [place] [phone] Conrado Evans MD 716 [facility] 353 [facility] 1932 [place], [place] [address] documented as of this encounter Visit Diagnoses Not on filedocumented in this encounter Additional Health Concerns 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, 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 Assessment Noted Time PHQ-9 Depression Total Score: 14 025 3:12 PM CDT documented as of this encounter Care Teams Environmental Law Professor Relationship Specialty Start Date End Date Robert Marley MD [facility] [address] [place] [address] PCP - General Family Practice 12/08/10 Tayo Lacey MD [facility] [address] [place] [address] Cardiology 08/30/14 Christopher Quiroga MD [facility] [address] [place], [place] [address] Oncology 07/02/16 Lance Simpson PA-C 9 [place], [place] [address] Physician Repeater Chief Physician Repeater Chief 01/07/18 Sherri Kingston PA [address] [place] [address] [place]rology [place], [place] 6[address]85 Physician Repeater Chief Physician Repeater Chief 12/21/18 Delvin Bob MD [address] [place] [address] 250 [place], [place] [address] Internal Medicine 11/11/19 Love Hernandez PA-C [address] [place] [address] [place] [address] Physician Repeater Chief Urology 12/01/22 Love Hernandez PA-C [address] [place] [address] [place] [address] Assigned Surgical Provider 01/17/23 [place] [address] [place] [address] Assigned Gastroenterology Provider 07/23/23 Everardo Grant MD 9 [place], [place] 8404[address] Physician Infectious Diseases 09/23/23 Rey Billings MD [address] [place] [address] Assigned Infectious Disease Provider 10/23/23 Conrado Evans MD 717 [facility] 353 [facility] [address] [place], [place] [address] Nephrology 08/25/24 Delvin Lopez MD 9 [place] [address] Nephrology 08/25/24 documented as of this encounter
--- OUTSIDE RECORDS SUMMARY | 2024-10-13 08:56 | XMS_ITS | Encounter Summary ---
Author Organization [facility] Address [address] [place] [address] Care Team Providers Care Line Supervisor Name Role Phone Robert Marley MD Primary Care Provider [phone] Berna Kruse MD Unavailable [phone] Roxanna Armas RN Unavailable +[phone] Irish Kim RN Unavailable +[phone] Chana Cheng MD Unavailable [phone] Anoop Garcia MD Unavailable Unavailable Barbara Carlson MD Unavailable Tayo Lacey MD Unavailable [phone] TuBasil shaikh MD Unavailable MagedCharleen MD Unavailable +[phone] Olimpia Williamson RN Unavailable [phone] Rin Dewitt RN Unavailable [phone] Rin Dewitt RN Unavailable [phone] Qian Rodriguez MD Unavailable [phone] Sherri [place] Unavailable [phone] Olimpia Williamson RN Unavailable [phone] Olimpia Williamson RN Unavailable [phone] Christopher Quiroga MD Unavailable Claudia Yousif RN Unavailable Lance Simpson PA-C Unavailable Olimpia Williamson RN Unavailable [phone] Sherri [place] PA Unavailable Delvin Bob MD Unavailable +[phone] Charleen Lynne MD Unavailable +[phone] ChapaShakira tellez MD Unavailable Unav ailable Hernesto Zoltan ADRIANM Unavailable +[phone] Lisbeth, Delvin England MD Unavailable Maximo Mathis DO Unavailable + Sherri [place] Unavailable +[phone] Pedro Winchester MD Unavailable [phone] ChapaShakira zelaya MD Unavailable Unav ailable Jovanni Dempsey MD Unavailable Jovanni Dempsey MD Unavailable Len Hooks MD Unavailable Delvin Bob MD Unavailable [phone] Love Hernandez-C Unavailable [phone] Conrado Evans MD Unavailable +[phone] Love Hernandez PA-C Unavailable [phone] Gordy Nickerson MD Unavailable [phone] Everardo Grant MD Unavailable Rey Billings MD Unavailable [phone] Conrado Evans MD Unavailable [phone] Delvin Lopez MD Unavailable [phone] Carissa Putnam RN Unavailable [phone] Encounter Details Date Type Department Care Team (Late Contact Info) Description 03/21/2014 External Order Results [facility] 2nd [facility], Clinic [address] [address] [facility] [place] [address] [place] [phone] Social History Tobacco Use Types Packs/Day Years Used Date Smoking Tobacco: Former Smokeless Tobacco: Never Alcohol Use Standard Drinks/Week Comments No 0 (1 standard drink = 0.6 oz pur e alcohol) Comments No Sex and Gender Information Value Date Recorded Sex Assigned at Not on file 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 [address] [place] [address] Edith Brito 10/26/2024 8:[address] [facility] [address] [facility] 200 [place] [phone] Conrado Evans MD [address] [place] [address] 353 [facility] 1932 [place] [address] documented as of this encounter Procedures Procedure Name Priority Date/Time Associated Diagnosis Comments EXTERNAL LAB RESULTS Routine 03/20/2014 8:48 AM TEASEL GIG OPERATOR documented in this encounter Results * (ABNORMAL) TXP External Lab Result (03/20/2014 8:48 AM TEASEL GIG OPERATOR) WBC Count (External) 4.54(L) 5.00 - 10 LABDE SCAN RBC Count (External) 3.80(L) 3.90 - 5.03 LABDE SCAN Hemoglobin (External) 10-5(L) 12.0 - 15.5 GM/DL LABDE SCAN Hematocrit (External) 34.5(L) 34.9 - 44.5 % LABDE SCAN MCV (External) 91 82 - 98 FL LABDE SCAN MCH (External) 28 27 - 34 PG LABDE SCAN MCHC (External) 30(L) 32 - 36 % LABDE SCAN Platelet Count (External) 256 150 - 450 K/UL LABDE SCAN % Neutrophils (External) 87.3(H) 50.0 - 70.0 % LABDE SCAN % Lymphocytes (External) 7.3(L) 25.0 - 45.0 LABDE SCAN % Monocytes (External) 3.5 0.00 - 11.0 % LABDE SCAN % Eosinophils (External) 1.3 0.0 - 7.0 % LABDE SCAN % Basophils (External) 0.4 0.0 - 3.0 % LABDE SCAN Absolute Neutrophils (External) 3.96 1.70 - 7.00 K/UL LABDE SCAN Absolute Lymphocytes (External) 0.33(L) 0.90 - 2.90 K/UL LABDE SCAN Absolute Monocytes (External) 0.16(L) 0.30 - 0.90 K/UL LABDE SCAN Absolute Eosinophils (External) 0.06 0.00 - 0.50 K/UL LABDE SCAN Absolute Basophils (External) 0.02 0.00 - 0.20 K/UL LABDE SCAN BK Virus PCR Quant Specimen (External) Whole Blood LABDE SCAN BK Virus Interp (External) Not Detected Not Detected LABDE SCAN BK Virus PCR Quant Log (External) <2.6 log copies/mL LABDE SCAN Calcium (External) 8.6 8.4 - 10.6 MG/DL LABDE SCAN Urea Nitrogen (External) 18 5 - 24 MG/DL LABDE SCAN Creatinine (External) 0.8 0.5 - 1.5 mg/dl LABDE SCAN Glucose (External) 119(H) 60 - 115 mg/dl LABDE SCAN Sodium (External) 138 135 - 149 MMOL/L LABDE SCAN Potassium (External) 3.9 3.6 - 5.1 mmol/l LABDE SCAN Chloride (External) 104 96 - 114 MMOL/L LABDE SCAN CO2 (External) 23 20 - 32 MMOL/L LABDE SCAN Amylase (External) 63 18 - 85 u/l LABDE SCAN Lipase Level (External) 158 23 - 300 U/L LABDE SCAN 03/20/2014 8:48 AM TEASEL GIG OPERATOR Narrative [facility]OBBY PFT - 03/24/2014 2:28 PM TEASEL GIG OPERATOR Verified by Tayla Dodson on 03/21/2014. Verified by Tayla Dodson on 03/24/2014. Verified by Ashlyn Reynoso on 03/24/2014. us Patient Reported LABORATORY Edited [...] the IP on-call for review. Meena Torres, [facility] Infection Prevention 07/11/2019 at 3:56 PM [...] Out COVID-19 04/19/2020 04/19/2020 04/19/2020 1:56 PM TEASEL GIG OPERATOR Rule Out COVID-19 04/19/2020 04/20/2020 04/20/2020 6:34 AM TEASEL GIG OPERATOR Rule Out COVID-19 12/15/2020 12/15/2020 12/15/2020 4:33 PM CDT Rule Out C-difficile 01/06/2021 01/08/2021 021 11:43 AM TEASEL GIG OPERATOR Rule Out C-difficile 07/10/2021 07/10/2021 022 5:56 PM CDT Rule Out C-difficile 07/16/2023 07/16/2023 024 9:21 PM CDT Rule Out Parvovirus 07/16/2023 07/16/2023 07/19/19 24 12:29 PM CDT Parvovirus 07/16/2023 07/16/2023 10/03/2024 4:22 PM CDT QO-BXH-Vauifiz Comment:This patient was exposed to a person with a 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 The [place] Department of [facility] ([facility]) and CDC recommend that we screen this patient to prevent the spread of these organisms within our healthcare facility. Infection Prevention has placed orders for collecting a rectal swab for CP-DRAWER IN STITCH BONDING MACHINE to evaluate if this patient is now a carrier. This patient was identified to have a low risk exposure in which case Contact Precautions are not necessary unless the patient tests positive. Screening is voluntary. Please notify Infection Prevention if the patient declines testing. Additional information and resources can be found on the Infection Prevention MDRO Sharepoint page. 08/04/2023 08/04/2023 02/02/2024 11:39 PM TEASEL GIG OPERATOR Rule Out Parvovirus 09/28/2023 09/28/2023 10/05/19 24 11:41 PM CDT documented as of this encounter Care Teams Line Supervisor Relationship Specialty Start Date End Date Robert Marley MD [facility] [id number] [place] [address] PCP - General Family Practice 12/08/10 Berna Kruse MD [facility] [address] [place] [address] Nephrology 07/15/12 05/25/14 Roxanna Armas, RN Registered Nurse Transplant 07/15/12 05/25/14 Irish Kim, RN Registered Nurse Transplant 05/26/14 09/20/14 Chana Cheng MD [facility] [address] [place] [address] Nephrology 05/26/14 11/12/15 Anoop Garcia MD [facility] [address] [place] [address] Transplant 05/26/14 02/02/18 Barbara Carlson MD [address] [place] [phone] Referring Physician Nephrology 08/30/14 11/12/15 Tayo Lacey MD [address] [place] [phone] Cardiology 08/30/14 Basil Plummer MD [address] [place] [address] Neurology 05/09/15 04/23/16 Charleen Lynne MD [address] [place] [address] [id number] MD Oncology 06/14/15 12/19/18 Olimpia Williamson, RN Nurse Coordinator Oncology 06/14/15 04/23/16 Rin Dewitt RN Nurse Coordinator Neurology 07/24/15 04/23/16 Rin Dewitt RN Nurse Coordinator Neurology 10/25/15 10/12/17 Qian Rodriguez MD 717 [facility] 353 [place], [place] [phone] Nephrology 11/13/15 06/16/16 Sherri [place] PA 420 [facility] 394 [place], [place] [phone] Physician Police Captain Precinct Physician Police Captain Precinct 03/20/16 Olimpia Williamson, RN Nurse Coordinator Oncology 06/26/16 06/26/16 Olimpia Williamson, RN Nurse Coordinator Oncology 06/26/16 06/16/18 Christopher Quiroga MD [facility] [address] [facility] 200 [place], [place] [phone] Oncology 07/02/16 Claudia Yousif, RN Nurse Coordinator Gastroenterology 02/09/17 09/16/22 Lance Simpson PA-C 909 [place] [address] Physician Police Captain Precinct Physician Police Captain Precinct 01/07/18 Olimpia Williamson, RN Specialty Automobile Upholsterer Hematology & Oncology 05/06/18 12/19/18 Sherri [place] PA [address] [place], [place] [address]y [place], [place] 657535 Physician Police Captain Precinct Physician Police Captain Precinct 12/21/18 Delvin Bob MD [address] [place] [address] 250 [place], [place] 573225 Internal Medicine 11/11/19 Charleen Lynne MD [address] [place] [address] [phone] Assigned Cancer Care Provider 12/23/19 03/23/21 Shakira Chapa MD [place]IVE IN [place] OF 06/29/2020 Assigned Surgical Provider 12/23/19 07/14/20 Zoltan Eric DPM [address] [facility] [address] [place], [place] 822737 Assigned Musculoskeletal Provider 12/23/19 07/26/21 Delvin Bob MD [address] [place] [address] 250 [place], [place] 662095 Assigned PCP 12/08/19 02/14/22 Maximo Mathis DO [address] [place] [address] [id number] Assigned Neuroscience Provider 02/12/20 08/09/21 Sherri [place] PA [address] [place], [place] [address]y [place], [place] 770525 Assigned Surgical Provider 07/15/20 10/06/20 Pedro Winchester MD [address] [place] 377555 Assigned Heart and Vascular Provider 08/05/20 01/31/22 Shakira Chapa MD INACTIVE IN [place] OF 06/29/2020 Assigned Surgical Provider 10/07/20 10/13/20 Jovanni Dempsey MD 600 [place], [place] 976122 Assigned Nephrology Provider 03/24/21 03/14/22 Jovanni Dempsey MD 600 [place], [place] 805952 Assigned Nephrology Provider 03/15/22 03/21/22 Len Hooks MD [address] [place], [place] 343924 Assigned Nephrology Provider 03/22/22 12/26/22 Delvin Bob MD [address] [place] [address] [facility] 250 [place], [place] 734185 Assigned PCP 04/26/22 12/12/22 Love Hernandez PA-C [address] [place] 747575 Physician Police Captain Precinct Urology 12/01/22 Conrado Evans MD [address] [place] 353 [facility] 1932 [place], [place] 276154 Assigned Nephrology Provider 12/27/22 06/21/24 Love Hernandez PA-C 6363 [facility] 500 [place], [place] 638795 Assigned Surgical Provider 01/17/23 [place] [address] [address] [place], [place] 049669 Assigned Gastroenterology Provider 07/23/23 Everardo [place] MD 909 [place] [address] Physician Infectious Diseases 09/23/23 Rey Billings MD [address] [place] [address] [phone] Assigned Infectious Disease Provider 10/23/23 Conrado Evans MD 717 [facility] 353 [facility] [address] [place] [address] Nephrology 08/25/24 Delvin Lopez MD 9 [place], [place] 147945 Nephrology 08/25/24 Carissa Putnam, RN [facility] 711 [place], [place] 0[address] Specialty Automobile Upholsterer Pharmacy 10/10/24 10/10/24 documented as of this encounter
--- OUTSIDE RECORDS SUMMARY | 2024-10-13 08:57 | XMS_ITS | Encounter Summary ---
Author Organization [facility] Address [address] [place] [address] Care Team Providers Care Inspector [employer] Name Role Phone Robert Marley MD Primary Care Provider [phone] Tayo Lacey MD Unavailable [phone] Christopher Quiroga MD Unavailable Lance Simpson PA-C Unavailable [phone] Sherri [place] Unavailable [phone] Delvin Bob MD Unavailable [phone] Love Hernandez-C Unavailable Love Hernandez-C Unavailable Gordy Nickerson MD Unavailable Everardo [place] MD Unavailable Rey Billings MD Unavailable +[phone] Conrado Evans MD Unavailable [phone] Delvin Lopez MD Unavailable [phone] Carissa Putnam RN Unavailable [phone] Encounter Details Date Type Department Care Team (Late st Contact Info) Description 10/05/2024 Orders Only [facility] [address] [place] [address] Outside, Provider Social History Tobacco Use Types [...] on file 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 [address] [place] [address] Edith Brito 10/26/2024 8:[address] [facility] [address] [place] [address] [place] [address] Conrado Evans MD 710 [facility] 353 [facility] 1932 [place] [address] documented as of this encounter Procedures Procedure Name Priority Date/Time Associated Diagnosis Comments HLA RESULT REPORT 10/05/2024 5:09 PM CDT documented in this encounter Results * HLA Result Report (10/05/2024 5:09 PM CDT) us Provider Outside LAB - IMMUNOLOGY ORDERABLES Fin al Result documented in this encounter Visit Diagnoses Not on filedocumented in this encounter Additional Health Concerns 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, 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 Assessment Noted Time PHQ-9 Depression Total Score: 18 023 10:27 AM AIRWAY TRAFFIC CONTROLLER documented as of this encounter Care Teams Inspector Grain [employer] Relationship Specialty Start Date End Date Robert Marley MD [facility] [address] [place] [address] PCP - General Family Practice 12/08/10 Tayo Lacey MD [facility] [address] [place] [address] Cardiology 08/30/14 Christopher Quiroga MD [facility] 675 [address] [facility] 200 [place] [address] Oncology 07/02/16 Lance Simpson PA-C 9 [place], [place] 2[address]95 Physician Mail Processor Physician Mail Processor 01/07/18 Sherri [place] PA [address] [place] [address] Urology [place], [place] 653335 Physician Mail Processor Physician Mail Processor 12/21/18 Delvin Bob MD [address] [place] [address] 250 [place], [place] 602265 Internal Medicine 11/11/19 Love Hernandez PA-C [address] 756175 Physician Mail Processor Urology 12/01/22 Love Hernandez PA-C 6363 [facility] 500 [place], [place] 810105 Assigned Surgical Provider 01/17/23 [place] [address] [address], [place] 859509 Assigned Gastroenterology Provider 07/23/23 Everardo Grant MD [address] [place] [address] Physician Infectious Diseases 09/23/23 Rey Billings MD [address] [place] [address] Assigned Infectious Disease Provider 10/23/23 Conrado Evans MD [address] [place] [address] 353 [facility] 1932 [place] [address] Nephrology 08/25/24 Delvin Lopez MD [address] [place] [address] [phone] Nephrology 08/25/24 Carissa Putnam, RN [facility] 711 [place], [place] [phone] Specialty Imaging Administrator Pharmacy 10/10/24 documented as of this encounter
--- OUTSIDE RECORDS SUMMARY | 2024-10-13 08:57 | XMS_ITS | Encounter Summary ---
Author Organization [facility] Address [address] [place] [address] Care Team Providers Care Logistician Name Role Phone Robert Marley MD Primary Care Provider [phone] Tayo Lacey MD Unavailable [phone] Christopher Quiroga MD Unavailable Lance Simpson PA-C Unavailable +[phone] Sherri [place] Unavailable [phone] Delvin Bob MD Unavailable [phone] Love Hernandez-C Unavailable Love Hernandez-C Unavailable Gordy Nickerson MD Unavailable Everardo Grant MD Unavailable Rey Billings MD Unavailable [phone] Conrado Evans MD Unavailable +[phone] Delvin Lopez MD Unavailable [phone] Carissa Putnam RN Unavailable [phone] Encounter Details Date Type Department Care Team (Late st Contact Info) Description 09/08/2024 [facility] [address] [place] [address] Sandra Rhodes, SONIA EBV (Patrick-Cole virus) viremia Social History Tobacco [...] on file 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 [address] [place] [address] Edith Brito 10/26/2024 8:[address] [facility] Medical Ctr 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 Parvovirus 07/16/2023 07/16/2023 10/03/2024 4:22 PM CDT Assessment Noted Time PHQ-9 Depression Total Score: 18 023 10:27 AM LOGISTICS PLANNER documented as of this encounter Care Teams Logistician Relationship Specialty Start Date End Date Robert Marley MD [facility] [id number] [place] [address] PCP - General Family Practice 12/08/10 Tayo Lacey MD [facility] [address] [place] [address] Cardiology 08/30/14 Christopher Quiroga MD [facility] [address] 200 [place] [address] Oncology 07/02/16 Lance Simpson PA-Alli 909 [place], [place] 121385 Physician Brickmason Contractor Physician Brickmason Contractor 01/07/18 Sherri [place] PA [address] [place] [address] U[place], [place] 700845 Physician Brickmason Contractor Physician Brickmason Contractor 12/21/18 Delvin Bob MD [address] [place] [address] 250 [place], [place] 071225 Internal Medicine 11/11/19 Love Hernandez PA-C [address] [place] [place] [address] Physician Brickmason Contractor Urology 12/01/22 Love Hernandez PA-C [address] [place] [place], [place] 241425 Assigned Surgical Provider 01/17/23 [place] [address] [place] [address] Assigned Gastroenterology Provider 07/23/23 Everardo Grant MD 9 [place], [place] 854575 Physician Infectious Diseases 09/23/23 Rey Billings MD [address] [place] [address] 920295 Assigned Infectious Disease Provider 10/23/23 Conrado Evans MD [address] [place] [address] 353 [facility] 1932 [place], [place] [phone] Nephrology 08/25/24 Delvin Lopez MD [address] [place] [address] 913635 Nephrology 08/25/24 Carissa Putnam, RN [facility] 711 [place], [place] [phone] Specialty Ice Cream Machine Operator Pharmacy 10/10/24 documented as of this encounter
--- OUTSIDE RECORDS SUMMARY | 2024-10-13 08:57 | XMS_ITS | Encounter Summary ---
Author Organization [facility] Address [address] [place] [address] Care Team Providers Care Manager Programs Name Role Phone Robert Marley MD Primary Care Provider [phone] Tayo Lacey MD Unavailable [phone] Christopher Quiroga MD Unavailable Lance Simpson PA-C Unavailable [phone] Sherri Kingston Unavailable [phone] Delvin Bob MD Unavailable [phone] Love Hernandez-C Unavailable Love Hernandez-C Unavailable Gordy Nickerson MD Unavailable [phone] Everardo Grant MD Unavailable Rey Billings MD Unavailable [phone] Conrado Evans MD Unavailable [phone] Delvin Lopez MD Unavailable [phone] Encounter Details Date Type Department Care Team (Latest Contact Info) Description 09/08/2024 Documentation Only [facility] [address] [place] [address] Sadnra Rhodes RN Aftercare following organ transplant (Primary Dx); Kidney replaced by transplant; Proteinuria Social History Tobacco Use Types [...] on file 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 Gender Identity Not on file Sexual Orientation Not on file Occupation Industry Job Start Date Job End Date Not on file Not on file Not on file Not on file documented as of this encounter Plan of Treatment Upcoming Encounters Date Type Department Care Team (Late st Contact Info) Description 10/25/2024 10:00 AM CDT Virtual Visit [facility] [address] [place] [phone] Edith Brito 10/26/2024 8:30 AM CDT Lab [facility] [address] [facility] [address] [place] [address] Conrado Evans MD 717 [facility] 353 [facility] [address] [place], [place] [id number] documented as of this encounter Results * (ABNORMAL) [place] and lambda light chain (09/19/2024 2:16 PM CDT) [place] Free Light Chains 9.59(H) 0.33 - 1.94 mg/dL 09/20/2024 8:45 AM CDT SPECIALTY CORE/PROT/ENDO [place] Free Light Chains 7.83(H) 0.57 - 2.63 mg/dL 09/20/2024 8:45 AM CDT SPECIALTY CORE/PROT/ENDO [place] /Lambda Ratio 1.22 0.26 - 1.65 09/20/2024 [...] inal Result SPECIALTY CORE/PROT/ENDO Specialty Core/Prot/Endo 500 [facility], Room [address] [place] [address] * (ABNORMAL) Albumin Random Urine Quantitative with [...] control, and institution of therapy with an kzkrqjhiqwk-bwxxeqjttn-onsxbd (TATIANA) inhibitor (if the patient can tolerate it). Urine URINE SPECIMEN OBTAINED BY CLEAN CATCH PROCEDURE / Unknown Non-blood Collection / Unknown 09/19/2024 2:16 PM CDT 09/19/2024 2:26 PM CDT us Conrado Evans MD LAB - URINE ORDERABLES F inal Result [facility] Lab 500 [facility], Room [address] [place] [phone] * (ABNORMAL) UA with Microscopic reflex to Culture (09/19/2024 2:16 PM CDT) Color Urine Light Yellow Colorless, Straw, Light Yellow, Yellow 09/19/2024 2:47 PM CDT LABORATORY Appearance Urine Clear Clear 09/20/19 25 2:47 PM CDT RH LABORATORY Glucose Urine Negative Negative mg/dL 09/19/2024 2:47 PM CDT RH LABORATORY Bilirubin Urine Negative Negative 2:47 PM CDT [facility] LABORATORY Ketones Urine Negative Negative mg/dL 09/19/2024 2:47 PM CDT [facility] LABORATORY Specific [place] Urine 1.020 1.003 - 1.035 09/19/2024 2:47 PM CDT [facility] LAB[facility] Blood Urine Trace(A) Negative 09/19/2024 2:47 PM CDT [facility] LABORAT[facility] pH Urine 6.0 5.0 - 7.0 09/19/2024 2:47 PM CDT [facility] LAB[facility]AT[facility] Protein Albumin Urine 100(A) Negative mg/dL 09/19/2024 2:47 PM CDT [facility] LABORATORY Urobilinogen Urine Normal Normal mg/dL 09/19/2024 2:47 PM CDT [facility] LAB[facility] Nitrite Urine Negative Negative 09/19/2024 2:47 PM CDT RH LABORATORY Leukocyte Esterase Urine Negative Negative 09/19/2024 2:47 PM CDT [facility] LAB[facility]ATORY Mucus Urine Present(A) None Seen /LPF 09/19/2024 2:47 PM CDT [facility] LAB[facility]AT[facility] RBC Urine 2 <=2 /HPF 09/19/2024 2:47 PM CDT [facility] LAB[facility] WBC Urine 3 <=5 /HPF 09/19/2024 2:47 PM CDT [facility] LAB[facility] Squamous Epithelials Urine 1 <=1 /HPF 09/19/2024 2:47 PM CDT LABORATORY Urine URINE SPECIMEN OBTAINED BY CLEAN CATCH PROCEDURE / Unknown Non-blood Collection / Unknown 09/19/2024 2:16 PM CDT 09/19/2024 2:26 PM CDT Narrative LABORATORY - 09/19/2024 2:47 PM CDT Urine Culture not indicated Conrado Evans MD LAB - URINE ORDERABLES F inal Result Performing Organization Address City/[facility]/ZIP Co de Phone Number [facility] [address] [employer] [place] Lab (1st floor, no room number) [place] [address] * (ABNORMAL) Protein random urine (09/19/2024 2:16 [...] ORDERABLES F inal Result Performing Organization Address City/[facility]/ZIP Co de Phone Number [facility] [address] Lab (1st floor, no room number) [place] [address] documented in this encounter Visit Diagnoses Diagnosis Aftercare following organ transplant- Primary Kidney replaced by transplant Proteinuria documented in this encounter Additional Health Concerns 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, 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 Parvovirus 07/16/2023 07/16/2023 10/03/2024 4:22 PM CDT Assessment Noted Time PHQ-9 Depression Total Score: 18 023 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 documented as of this encounter Care Teams Manager Programs Relationship Specialty Start Date End Date Robert Marley MD [facility] [address] [place] [address] PCP - General Family Practice 12/08/10 Tayo Lacey MD [facility] [id number] [place] [address] Cardiology 08/30/14 Christopher Quiroga MD [facility] [address] [facility] 200 [place] [address] Oncology 07/02/16 Lance Simpson PA-C [address] [place] [id number] Physician Steam Pan Sponger Physician [employer] Sp[employer]er 01/07/18 Sherri Kingston PA [address] [place] [address] Urology [place], [place] [address] Physician [employer] Pan Sponger Physician [employer] Pan Sponger 12/21/18 Delvin Bob MD [address] [place] [address] 250 [place], [place] [phone] Internal Medicine 11/11/19 Love Hernandez PA-C [address] [id number] Physician [employer] Pan Sponger Urology 12/01/22 Love Hernandez PA-C 6363 [facility] 500 [place] [address] Assigned Surgical Provider 01/17/23 [place] [address] [place] [address] Assigned Gastroenterology Provider 07/23/23 Everardo Grant MD [address] [place] [address] Physician Infectious Diseases 09/23/23 Rey Billings MD [address] [place] [id number] Assigned Infectious Disease Provider 10/23/23 Conrado Evans MD [address] [place] [address] 353 [facility] [address] [place], [place] [address] Nephrology 08/25/24 Delvin Lopez MD [address] [place] [phone] Nephrology 08/25/24 documented as of this encounter
--- OUTSIDE RECORDS SUMMARY | 2024-10-13 08:57 | XMS_ITS | Encounter Summary ---
Author Organization [facility] Address [address] [place] [address] Care Team Providers Care Supervisor Ovens Name Role Phone Robert Marley MD Primary Care Provider [phone] Tayo Lacey MD Unavailable [phone] Christopher Quiroga MD Unavailable Lance Simpson PA-C Unavailable [phone] Sherri Kingston Unavailable [phone] Delvin Bob MD Unavailable [phone] Love Hernandez-C Unavailable Love Hernandez-C Unavailable Gordy Nickerson MD Unavailable Everardo Grant MD Unavailable Rey Billings MD Unavailable [phone] Conrado Evans MD Unavailable [phone] Delvin Lopez MD Unavailable [phone] Encounter Details Date Type Department Care Team (Late st Contact Info) Description 09/07/2024 Results Follow-Up [facility] [address] [place] [address] Susan Pelletier, RN Dx: 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 She denies any LE edema changes She denies any symptoms of UTI Denies any high BP and BP generally runs low A1c normal at 5.3% Advised to pt we will likely repeat UPCR with labs in 1 month along with possible additional work up. If she needs to go to lab sooner I will let her know. Orders placed * Susan Pelletier RN - 09/07/2024 10:11 AM CDT ISSUE PAUL with creatinine 1.92 (baseline 1.1-1.4) PLAN Spoke to pt and message sent to Dr. Evans: Dr. Evans, In addition to increased UPCR, also with elevated creatinine at 1.92 (baseline ~ 1-1.4). She deniesany recent illness or diarrhea. Denies UTI symptoms or medication changes. No diuretics. No pain over kidney. BP runs low at a baseline and has hx neurogenic orthostatic hypotension. She does admit to only drinking about 25oz water daily. Denies any fluid restrictions. I asked her to push fluids and repeat labs in 1 week. Please let me know if any other immediate recommendations. OUTCOME Lab orders placed for labs in 1 week. Otherwise waiting any further recommendations from Dr. Evans. documented in this encounter Miscellaneous Notes * Telephone Encounter - Olimpia Benitez RN - 09/22/2024 11:00 AM CDT ----- Message from Conrado Evans sent at 09/21/2024 8:57 PM CDT ----- True, although one of those times she had a UTI and that was the likely cause of proteinuria. Now, it isn't just the proteinuria, but also an increase in creatinine. I would recommend the biopsy. Siva ----- Message ----- From: Susan Pelletier RN Sent: 09/21/2024 2:42 PM CDT To: MD Loren Boss Dr., Sorry for the back and forth on this. When I dig back further in her history... it seems this increased proteinuria is not new and actually has been higher since 2019. Just wanted to double check with you before ordering biopsy. It was even >2 grams a couple of times many years ago. ----- Message ----- From: Conrado Evans MD Sent: 09/21/2024 2:06 PM CDT To: Susan Pelletier RN With continued proteinuria, I would recommend a biopsy. ----- Message ----- From: Susan Pelletier RN Sent: 09/21/2024 11:46 AM CDT To: MD Dr. Nathan Boss, Work up completed following recent increase in UPCR and PAUL. Her baseline creatinine is 1-1.4. Repeat UPCR and creatinine are slightly improved. You noted previously she may need a biopsy. She was only drinking about 25oz daily water when I spoke to her 2 weeks ago and told her to increase fluids. Any indication to move forward with biopsy right now or repeat labs again next week? Stable pancreas enzymes Sirolimus at goal 3-5 Tacrolimus at goal 5-8 ----- Message ----- From: Lab, Background User Sent: 09/19/2024 2:30 PM CDT To: Susan Pelletier RN * Result Encounter Note - Susan Pelletier RN - 09/07/2024 10:11 AM CDT Contacted pt to discuss recommendations for proceeding with biopsy to further evaluate increased creatinine and proteinuria. Pt agreeable to biopsy but will be out of town the next week. She can scheduled on 10/05 or 10/06. Willplace orders for biopsy and have IR reach out to schedule today if possible. documented in this encounter Plan of Treatment Upcoming Encounters Date Type Department Care Team (Late st Contact Info) Description 10/25/2024 10:00 AM CDT Virtual Visit [facility] [address] [place] [phone] Edith Brito 10/26/2024 8:30 AM CDT Lab [facility] [address] [facility] 200 [place] [address] Conrado Evans MD 717 [facility] 353 [facility] 1932 [place] [address] documented as of this encounter Results * (ABNORMAL) Sirolimus by Tandem Mass Spectrometry [...] and its performance characteristics determined by the [facility], Special Chemistry Laboratory. It has not been cleared or approved by the FDA. The laboratory is regulated under CLIA as qualified to perform high-complexity testing. This test is used for clinical purposes. It should not be regarded as investigational or for research. Conrado Evans MD LAB - BLOOD ORDERABLES F inal Result SPECIAL DRUG/BGEN Special Drug/BGEN 500 [facility] [address] [facility], Room [address] [place] [address] * Lipase (09/19/2024 2:16 PM CDT) Lipase 35 13 - 60 U/L 09/19/2024 2:59 PM CDT LABORATORY Blood STRUCTURE OF LEFT UPPER LIMB / Unknown Venipuncture / Unknown 09/19/2024 2:16 PM CDT 09/19/2024 2:27 PM CDT Conrado Evans MD LAB - BLOOD ORDERABLES F inal Result LABORATORY [facility] [address] Lab (1st floor, no room number) [place] [address] * Tacrolimus by Tandem Mass Spectrometry (09/19/2024 2:16 PM CDT) Tacrolimus by Tandem Mass Spectrometry 6.4 5.0 [...] and its performance characteristics determined by the [facility], Special Chemistry Laboratory. It has not been cleared or approved by the FDA. The laboratory is regulated under CLIA as qualified to perform high-complexity testing. This test is used for clinical purposes. It should not be regarded as investigational or for research. us Conrado Evans MD LAB - BLOOD ORDERABLES F inal Result UM SPECIAL DRUG/BGEN UM Special Drug/BGEN 500 [facility], Room [address] [place] [address], [facility] * (ABNORMAL) CBC with platelets (09/19/2024 [...] BLOOD ORDERABLES F inal Result RH LABORATORY [facility] [address] Lab (1st floor, no room number) [place] [address], [facility] * (ABNORMAL) Basic metabolic panel (09/19/2024 [...] Comment:eGFR calculated usin 2020 CKD-EPI equation. Calcium 9.3 8.8 - 10.4 mg/dL 09/19/2024 2:59 PM CDT RH LABORATORY Glucose 89 70 - 99 mg/dL 09/19/2024 2:59 PM CDT RH LABORATORY Blood STRUCTURE OF LEFT UPPER LIMB / Unknown Venipuncture / Unknown 09/19/2024 2:16 PM CDT 09/19/2024 2:27 PM CDT us Conrado Evans MD LAB - BLOOD ORDERABLES F inal Result LABORATORY [facility] [address] [facility] Lab (1st floor, no room number) [place] [address] * Amylase (09/19/2024 2:16 PM CDT) Amylase 77 28 - 100 U/L 09/19/2024 2:59 PM CDT RH LABORATORY Blood STRUCTURE OF LEFT UPPER LIMB / Unknown Venipuncture / Unknown 09/19/2024 2:16 PM CDT 09/19/2024 2:27 PM CDT Conrado Evans MD LAB - BLOOD ORDERABLES F inal Result RH LABORATORY [facility] [address] Lab (1st floor, no room number) [place] [address], [facility] * (ABNORMAL) Basic metabolic panel (09/07/2024 9:51 AM CDT) Sodium 143 135 - 145 mmol/L 09/07/2024 1:38 PM CDT RH LABORATORY Potassium 4.5 3.4 - 5.3 mmol/L 09/07/2024 1:38 PM CDT RH LABORATORY Chloride 109(H) 98 - 107 mmol/L 09/07/2024 1:38 PM CDT RH LABORATORY Carbon Dioxide (CO2) 19(L) 22 - [...] calculated usin g 2020 CKD-EPI equation. 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 Infectious mononucleosis documented in this encounter Additional Health Concerns 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, 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 Parvovirus 07/16/2023 07/16/2023 10/03/2024 4:22 PM CDT Assessment Noted Time PHQ-9 Depression Total Score: 18 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 Care Teams Supervisor Ovens Relationship Specialty Start Date End Date Robert Marley MD [facility] [address] [place] [address] PCP - General Family Practice 12/08/10 Tayo Lacey MD [facility] [address] [place] [address] Cardiology 08/30/14 Christopher Quiroga MD [facility] [address] [facility] 200 [place] [address] Oncology 07/02/16 Lance Simpson PA-C [address] [place] [id number] [facility] Display Builder [facility] Display Builder 01/07/18 Sherri Kingston PA [address] [place] [address] [place], [place] [address] [facility] Display [facility] Display Builder 12/21/18 Delvin Bob MD [address] [place] [address] 250 [place] [address] Internal Medicine 11/11/19 FerLove freeman PA-C [address] [place] [address] [place] [address] [facility] Display Builder Urology 12/01/22 Love Hernandez PA-C [address] [place] [address] [place] [address] Assigned Surgical Provider 01/17/23 [place] [address] [place], [place] [address] Assigned Gastroenterology Provider 07/23/23 Everardo Grant MD [address] [place] [id number] Physician Infectious Diseases 09/23/23 Rey Billings MD [address] [place] [address] Assigned Infectious Disease Provider 10/23/23 Conrado Evans MD 717 [facility] 353 [facility] [address] [place], [place] [address] Nephrology 08/25/24 Delvin Lopez MD [address] [place] [id number] Nephrology 08/25/24 documented as of this encounter
--- OUTSIDE RECORDS SUMMARY | 2024-10-13 08:57 | XMS_ITS | Encounter Summary ---
Author Organization [facility] Address [address] [place] [address] Care Team Providers Care Inspector Rubber Stamp Die Name Role Phone Robert Marley MD Primary Care Provider Chana Cheng MD Unavailable [phone] Anoop Garcia MD Unavailable Unavailable Barbara Carlson MD Unavailable Tayo Lacey MD Unavailable [phone] TuBasil shaikh MD Unavailable Charleen Lynne MD Unavailable [phone] Olimpia Williamson RN Unavailable [phone] Rin Dewitt RN Unavailable [phone] Rin Dewitt RN Unavailable [phone] Qian Rodriguez MD Unavailable [phone] Sherri Kingston Unavailable [phone] Olimpia Williamson RN Unavailable [phone] Olimpia Williamson RN Unavailable [phone] Christopher Quiroga MD Unavailable Claudia Yousif RN Unavailable Lance Simpson PA-C Unavailable [phone] Olimpia Williamson RN Unavailable [phone] Sherri Kingston Unavailable Delvin Bob MD Unavailable Charleen Lynne MD Unavailable [phone] ChapaShakira zelaya MD Unavailable Unav ailable AmbarZoltan soares ADRIANM Unavailable [phone] Delvin Bob MD Unavailable [phone] Shante Mathisony Jaden LÓPEZ Unavailable + Sherri Kingston Unavailable Pedro Winchester MD Unavailable ChapaShakira zelaya MD Unavailable Unav ailable Jovanni Dempsey MD Unavailable Jovanni Dempsey MD Unavailable [phone] Len Hooks MD Unavailable Delvin Bob MD Unavailable Love Hernandez PA-C Unavailable Conrado Evans MD Unavailable Love Hernandez PA-C Unavailable Gordy Nickerson MD Unavailable [phone] Everardo Grant MD Unavailable Rey Billings MD Unavailable [phone] Conrado Evans MD Unavailable Delvin Lopez MD Unavailable [phone] Carissa Putnam RN Unavailable [phone] Encounter Details Date Type Department Care Team (Late st Contact Info) Description 10/04/2014 External Order Results [facility] 2nd Floor, [facility] [address] [address] Social History Tobacco Use Types Packs/Day Years Used Date Smoking Tobacco: Former Smokeless Tobacco: Never Alcohol Use Standard Drinks/Week Comments No 0 (1 standard drink = 0.6 oz pur e alcohol) Comments No Sex and Gender Information Value Date Recorded Sex Assigned at Not on file 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 Gender Identity Not on file Sexual Orientation Not on file Occupation Industry Job Start Date Job End Date Not on file Not on file Not on file Not on file documented as of this encounter Plan of Treatment Upcoming Encounters Date Type Department Care Team (Late st Contact Info) Description 10/25/2024 10:00 AM CDT Virtual Visit [facility] [address] [place] [address] Edith Brito 10/26/2024 8:30 AM CDT Lab [facility] [address] [facility] 200 [place] [address] Conrado Evans MD 717 [facility] 353 [facility] 1932 [place], [place] [address] documented as of this encounter Procedures Procedure Name Priority Date/Time Associated Diagnosis Comments EXTERNAL LAB RESULTS Routine 10/04/2014 10:10 AM CDT documented in this encounter Results * (ABNORMAL) TXP External Lab Result (10/04/2014 10:10 AM CDT) WBC Count (External) 3.81 LABDE SCAN RBC Count (External) 5.03 LABDE SCAN Hemoglobin (External) 13.2 12.0 - 15.5 M/DL LABDE SCAN Hematocrit (External) 41.6 34.9 - 44.5 % LABDE SCAN MCV (External) 83 LABDE SCAN MCH (External) 26(L) 27 - 34 PG LABDE SCAN MCHC (External) 32 32 - 36 % LABDE SCAN Platelet Count (External) 95 LABDE SCAN % Neutrophils (External) 69.3 LABDE SCAN % Lymphocytes (External) 15.5 LABDE SCAN % Monocytes (External) 10.0 LABDE SCAN % Eosinophils (External) 4.2 LABDE SCAN % Basophils (External) 1.0 LABDE SCAN % Immature Granulocytes (External) 0.0 LABDE SCAN Absolute Neutrophils (External) 2.64 LABDE SCAN Absolute Lymphocytes (External) 0.59(L) LABDE SCAN Absolute Monocytes (External) 0.38 LABDE SCAN Absolute Eosinophils (External) 0.16 LABDE SCAN Absolute Basophils (External) 0.04 LABDE SCAN Absolute Immature Granulocytes (External) 0.00 LABDE SCAN Calcium (External) 9.6 8.4 - 10.6 MG/DL LABDE SCAN Urea Nitrogen (External) 25(H) 5 - 24 LABDE SCAN Creatinine (External) 1.1 0.5 - 1.5 LABDE SCAN Glucose (External) 79 60 - 115 LABDE SCAN Sodium (External) 140 135 - 149 LABDE SCAN Potassium (External) 4.2 3.6 - 5.1 LABDE SCAN Chloride (External) 108 96 - 114 LABDE SCAN CO2 (External) 24 20 - 32 LABDE SCAN Amylase (External) 68 18 - 89 LABDE SCAN Lipase Level (External) 71 23 - 300 LABDE SCAN INR (External) 1.9(H) 0.88 - 1.1 LABDE SCAN 10/04/2014 10:1 0 AM CDT Narrative BOBBY PFT - 10/10/2014 3:15 PM CDT Verified by Rylee Guzman on 10/04/2014. Verified by Pao Oswald on 10/10/2014. us Patient Reported LABORATORY Edited Result - [...] Out COVID-19 04/19/2020 04/19/2020 04/19/2020 1:56 PM FOUNDER AND CEO Rule Out COVID-19 04/19/2020 04/20/2020 04/20/2020 6:34 AM FOUNDER AND CEO Rule Out COVID-19 12/15/2020 12/15/2020 12/15/2020 4:33 PM CDT Rule Out C-difficile 01/06/2021 01/08/2021 021 11:43 AM FOUNDER AND CEO Rule Out C-difficile 07/10/2021 07/10/2021 022 5:56 PM CDT Rule Out C-difficile 07/16/2023 07/16/2023 024 9:21 PM CDT Rule Out Parvovirus 07/16/2023 07/16/2023 07/19/19 24 12:29 PM CDT Parvovirus 07/16/2023 07/16/2023 10/03/2024 4:22 PM CDT QP-RAN-Iromyjk Comment:This patient was exposed to a person with a known CP-FURNITURE MOVER HELPER and has the potential for having acquired this pathogen of concern. The [place] Department of Health ([facility]) and CDC recommend that we screen this patient to prevent the spread of these organisms within our healthcare facility. Infection Prevention has placed orders for collecting a rectal swab for CP-FURNITURE MOVER HELPER to evaluate if this patient is now a carrier. This patient was identified to have a low risk exposure in which case Contact Precautions are not necessary unless the patient tests positive. Screening is voluntary. Please notify Infection Prevention if the patient declines testing. Additional information and resources can be found on the Infection Prevention [employer] Sharepoint page. 08/04/2023 08/04/2023 02/02/2024 11:39 PM FOUNDER AND CEO Rule Out Parvovirus 09/28/2023 09/28/2023 10/05/19 11:41 PM CDT documented as of this encounter Care Teams Inspector Rubber Stamp Die Relationship Specialty Start Date End Date Robert Marley MD [facility] [id number] [place] [address] PCP - General Family Practice 12/08/10 Chana Cheng MD [facility] [address] [place] [address] Nephrology 05/26/14 11/12/15 Anoop Garcia MD [facility] [address] [place] [address] Transplant 05/26/14 02/02/18 Barbara Carlson MD [address] [place] [address] Referring Physician Nephrology 08/30/14 11/12/15 Tayo Lacey MD [address] [place] [address] Cardiology 08/30/14 Basil Plummer MD 9[address] [place], [place] [address] Neurology 05/09/15 04/23/16 Charleen Lynne MD [address] [place], [place] 45[address] Oncology 06/14/15 12/19/18 Olimpia Williamson, RN Nurse Coordinator Oncology 06/14/15 04/23/16 Rin Dewitt RN Nurse Coordinator Neurology 07/24/15 04/23/16 Rin Dewitt RN Nurse Coordinator Neurology 10/25/15 10/12/17 Qian Rodriguez MD 717 [facility] 353 [place], [place] [id number] Nephrology 11/13/15 06/16/16 Sherri Kingston PA 420 [facility] 394 [place], [place] [id number] Physician Cath Lab Nurse Physician Cath Lab Nurse 03/20/16 Olimpia Williamson, RN Nurse Coordinator Oncology 06/26/16 06/26/16 Olimpia Williamson, RN Nurse Coordinator Oncology 06/26/16 06/16/18 Christopher Quiroga MD [facility] [address] [place], [place] [address] Oncology 07/02/16 Claudia Yousif, SONIA Nurse Coordinator Gastroenterology 02/09/17 09/16/22 Lance Simpson PA-C [address] [place] [address] Physician Cath Lab Nurse Physician Cath Lab Nurse 01/07/18 Olimpia Williamson, SONIA Specialty Assistant Vice President Hematology & Oncology 05/06/18 12/19/18 Sherri Kingston PA 909 [facility] Urology [place], [place] [address] Physician Cath Lab Nurse Physician Cath Lab Nurse 12/21/18 Delvin Bob MD [address] [place] [address] [id number] Internal Medicine 11/11/19 Charleen Lynne MD [address] [place], [place] 8728[address] Assigned Cancer Care Provider 12/23/19 03/23/21 Shakira Chapa MD INACTIVE IN [place] OF 06/29/2020 Assigned Surgical Provider 12/23/19 07/14/20 Zoltan Eric DPM [address] [employer] [address] [place] [address] Assigned Musculoskeletal Provider 12/23/19 07/26/21 Delvin Bob MD 420 [facility] 250 [place], [place] [address] Assigned PCP 12/08/19 02/14/22 Maximo Mathis DO [address]09 [place] [address] Assigned Neuroscience Provider 02/12/20 08/09/21 Sherri Kingston PA 909 [facility] [place] [address] Assigned Surgical Provider 07/15/20 10/06/20 Pedro Winchester MD [address] [place], [place] 8[address] Assigned Heart and Vascular Provider 08/05/20 01/31/22 Shakira Chapa MD INACTIVE IN [place] OF 06/29/2020 Assigned Surgical Provider 10/07/20 10/13/20 Jovanni Dempsey MD [address] [place], [place] [address]153[address] Assigned Nephrology Provider 03/24/21 03/14/22 Jovanni Dempsey MD [address] [place], [place] 573342 Assigned Nephrology Provider 03/15/22 03/21/22 Len Hooks MD 717 [facility] 353 [place] [address] Assigned Nephrology Provider 03/22/22 12/26/22 Delvin Bob MD 420 [facility] 250 [place] [address] Assigned PCP 04/26/22 12/12/22 Love Hernandez PA-C [facility] [address] [place] [address] Physician Cath Lab Nurse Urology 12/01/22 Conrado Evans MD [address] [place] [address] Assigned Nephrology Provider 12/27/22 06/21/24 Love Hernandez PA-C [address] [place] [address] Assigned Surgical Provider 01/17/23 [place] [address] [place] [address] Assigned Gastroenterology Provider 07/23/23 Everardo Grant MD [address] [place] [address] 790135 Physician Infectious Diseases 09/23/23 Rey Billings MD [address] [place] [address] Assigned Infectious Disease Provider 10/23/23 Conrado Evans MD [address] [place] [address] Nephrology 08/25/24 Delvin Lopez MD [address] [place] [address] Nephrology 08/25/24 Carissa Putnam, RN [facility] [address] [place] [address] Specialty Assistant Vice President Pharmacy 10/10/24 10/10/24 documented as of this encounter
--- OUTSIDE RECORDS SUMMARY | 2024-10-13 08:57 | XMS_ITS | Encounter Summary ---
Author Organization [facility] Address [address] [place] [address] Care Team Providers Care [employer] Name Role Phone Robert Marley MD Primary Care Provider [phone] Tayo Lacey MD Unavailable [phone] Christopher Quiroga MD Unavailable Lance Simpson PA-C Unavailable Sherri Kingston Unavailable [phone] Delvin Bob MD Unavailable [phone] Love Hernandez-C Unavailable [phone] Love Hernandez-C Unavailable Gordy Nickerson MD Unavailable [phone] Everardo Grant MD Unavailable Rey Billings MD Unavailable [phone] Conrado Evans MD Unavailable [phone] Delvin Lopez MD Unavailable [phone] Encounter Details Date Type Department Care Team (Latest Contact Info) Description 09/07/2024 Travel Social History Tobacco Use Types Packs/Day Years [...] on file 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 Gender Identity Not on file Sexual Orientation Not on file Occupation Industry Job Start Date Job End Date Not on file Not on file Not on file Not on file documented as of this encounter Plan of Treatment Upcoming Encounters Date Type Department Care Team (Late st Contact Info) Description 10/25/2024 10:00 AM CDT Virtual Visit [facility] [address] [place] [address] Edith Brito 10/26/2024 8:30 AM CDT Lab [facility] [address] [place] [address] [place] [address] Conrado Evans MD 717 [facility] 353 [facility] [address] [place] [address] documented as of this encounter Visit Diagnoses Not on filedocumented in this encounter Additional Health Concerns 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, 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 Parvovirus 07/16/2023 07/16/2023 10/03/2024 4:22 PM CDT Assessment Noted Time PHQ-9 Depression Total Score: 18 023 10:27 AM STATUS CONTROLLER documented as of this encounter Care Teams [employer] Skills Relationship Specialty Start Date End Date Robert Marley MD [facility] [id number] [place] [address] PCP - General Family Practice 12/08/10 Tayo Lacey MD [facility] [id number] [place] [address] Cardiology 08/30/14 Christopher Quiroga MD [facility] [address] [place] [address] Oncology 07/02/16 Lance Simpson PA-C [address] [place] [address] 387045 Physician Director Of Labor Relations Physician Director Of Labor Relations 01/07/18 Sherri Kingston PA [address] [place] [address] Urology [place], [place] [address] Physician Director Of Labor Relations Physician Director Of Labor Relations 12/21/18 Delvin Bob MD [address] [place] [address] 250 [place] [address] Internal Medicine 11/11/19 Love Hernandez PA-C [address] [place], [place] [address] Physician Director Of Labor Relations Urology 12/01/22 Love Hernandez PA-C [address] [place], [place] [address] Assigned Surgical Provider 01/17/23 [place] [address] [place], [place] [address] Assigned Gastroenterology Provider 07/23/23 Everardo Grant MD 909 [place] [address] Physician Infectious Diseases 09/23/23 Rey Billings MD 909 [place] [address] Assigned Infectious Disease Provider 10/23/23 Conrado Evans MD 717 [facility] [place] [facility] [address] [place] [address] Nephrology 08/25/24 Delvin Lopez MD 909 [place] [address] Nephrology 08/25/24 documented as of this encounter
--- OUTSIDE RECORDS SUMMARY | 2024-10-13 08:57 | XMS_ITS | Encounter Summary ---
Author Organization [place] Address [address] [place] [address] Care Team Providers Care Aquatic Performer Name Role Phone Robert Marley MD Primary Care Provider Irish Kim RN Unavailable [phone] Chana Cheng MD Unavailable [phone] Anoop Garcia MD Unavailable Unavailable Barbara Carlson MD Unavailable Tayo Lacey MD Unavailable [phone] Basil Plummer MD Unavailable Charleen Lynne MD Unavailable [phone] Olimpia Williamson RN Unavailable [phone] Rin Dewitt RN Unavailable [phone] Rin Dewitt RN Unavailable [phone] Qian Rodriguez MD Unavailable [phone] Sherri Kingston Unavailable [phone] Olimpia Williamson RN Unavailable [phone] Olimpia Williamson RN Unavailable [phone] Christopher Quiroga MD Unavailable Claudia Yousif RN Unavailable Lance Simpson PA-C Unavailable [phone] Olimpia Williamson RN Unavailable Sherri Kingston Unavailable [phone] Delvin Bob MD Unavailable [phone] Charleen Lynne MD Unavailable [phone] ChapaShakira zealya MD Unavailable Unav ailable Zoltan Eric DPM Unavailable [phone] Delvin Bob MD Unavailable [phone] Maximo Mathis DO Unavailable + Sherri Kingston Unavailable [phone] Pedro Winchester MD Unavailable [phone] ChapaShakira zelaya MD Unavailable Unav ailable Jovanni Dempsey MD Unavailable [phone] Jovanni Dempsey MD Unavailable [phone] Len Hooks MD Unavailable Delvin Bob MD Unavailable [phone] Love Hernandez-C Unavailable [phone] Conrado Evans MD Unavailable [phone] Love Hernandez-C Unavailable Gordy Nickerson MD Unavailable Everardo Grant MD Unavailable Rey Billings MD Unavailable [phone] Conrado Evans MD Unavailable Delvin Lopez MD Unavailable [phone] Carissa Putnam RN Unavailable [phone] Encounter Details Date Type Department Care Team (Late st Contact Info) Description 09/20/2014 External Order Results [facility], Clinic [address] [address] Social History Tobacco Use Types Packs/Day Years Used Date Smoking Tobacco: Former Smokeless Tobacco: Never Alcohol Use Standard Drinks/Week Comments No 0 (1 standard drink = 0.6 oz pur e alcohol) Comments No Sex and Gender Information Value Date Recorded Sex Assigned at Not on file 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 [address] [facility] 200 [place] [phone] Conrado Evans MD 717 [facility] 353 [facility] 1932 [place], [place] [address] documented as of this encounter Procedures Procedure Name Priority Date/Time Associated Diagnosis Comments EXTERNAL LAB RESULTS Routine 09/20/2014 9:45 AM CDT documented in this encounter Results * (ABNORMAL) TXP External Lab Result (09/20/2014 9:45 AM CDT) WBC Count (External) 4.0(L) 5.0 - 10.0 LABDE SCAN RBC Count (External) 4.84 3.90 - 5.03 LABDE SCAN Hemoglobin (External) 12.6 12.0 - 15.5 LABDE SCAN Hematocrit (External) 40.9 34.9 - 44.5 LABDE SCAN MCV (External) 85 82 - 98 LABDE SCAN MCH (External) 26(L) 27 - 34 LABDE SCAN MCHC (External) 31(L) 32 - 36 LABDE SCAN Platelet Count (External) 144(L) 150 - 450 LABDE SCAN % Neutrophils (External) 66.9 50 - 70 LABDE SCAN % Lymphocytes (External) 16.0(L) 25.0 - 45.0 LABDE SCAN % Monocytes (External) 11.3(H) 0.0 - 11.0 LABDE SCAN % Eosinophils (External) 5.0 0.0 - 7.0 LABDE SCAN % Basophils (External) 0.8 0.0 - 3.0 LABDE SCAN % Immature Granulocytes (External) 0.0 LABDE SCAN Absolute Neutrophils (External) 2.68 1.70 - 7.0 LABDE SCAN Absolute Lymphocytes (External) 0.64(L) 0.90 - 2.90 LABDE SCAN Absolute Monocytes (External) 0.45 0.30 - 0.90 LABDE SCAN Absolute Eosinophils (External) 0.20 0.0 - 0.50 LABDE SCAN Absolute Basophils (External) 0.03 0.0 - 0.20 LABDE SCAN Absolute Immature Granulocytes (External) 0.0 LABDE SCAN 09/20/2014 9:45 AM CDT Narrative XANDEREliceo PFT - 09/20/2014 2:46 PM CDT Verified by Ashlyn Reynoso on 09/20/2014. us Patient Reported LABORATORY Edited Result - [...] the IP on-call for review. Meena Torres [facility] Infection Prevention 07/11/2019 at [...] Out COVID-19 04/19/2020 04/19/2020 04/19/2020 1:56 PM WEIGHT GUESSER Rule Out COVID-19 04/19/2020 04/20/2020 04/20/2020 6:34 AM WEIGHT GUESSER Rule Out COVID-19 12/15/2020 12/15/2020 12/15/2020 4:33 PM CDT Rule Out C-difficile 01/06/2021 01/08/2021 021 11:43 AM WEIGHT GUESSER Rule Out C-difficile 07/10/2021 07/10/2021 022 5:56 PM CDT Rule Out C-difficile 07/16/2023 07/16/2023 024 9:21 PM CDT Rule Out Parvovirus 07/16/2023 07/16/2023 07/19/19 24 12:29 PM CDT Parvovirus 07/16/2023 07/16/2023 10/03/2024 4:22 PM CDT [id number] Comment:This patient was exposed to a person with a known CP-NOISE ABATEMENT ENGINEER and has the potential for having acquired this pathogen of concern. The [place] Department of Health ([facility]) and CDC recommend that we screen this patient to prevent the spread of these organisms within our healthcare facility. Infection Prevention has placed orders for collecting a rectal swab for CP-NOISE ABATEMENT ENGINEER to evaluate if this patient is now a carrier. This patient was identified to have a low risk exposure in which case Contact Precautions are not necessary unless the patient tests positive. Screening is voluntary. Please notify Infection Prevention if the patient declines testing. Additional information and resources can be found on the Infection Prevention MDRO Sharepoint page. 08/04/2023 08/04/2023 02/02/2024 11:39 PM WEIGHT GUESSER Rule Out Parvovirus 09/28/2023 09/28/2023 10/05/19 11:41 PM CDT documented as of this encounter Care Teams Aquatic Performer Relationship Specialty Start Date End Date Robert Marley MD [facility] [id number] [place] [address] PCP - General Family Practice 12/08/10 Irish Kim RN Registered Nurse Transplant 05/26/14 09/20/14 Chana Cheng MD [facility] [address] [place] [address] Nephrology 05/26/14 11/12/15 Anoop Garcia MD [facility] [address] [place] [address] Transplant 05/26/14 02/02/18 Barbara Carlson MD [address] [place] [phone] Referring Physician Nephrology 08/30/14 11/12/15 Tayo Lacey MD [address] [place] [phone] Cardiology 08/30/14 Basil Plummer MD 909 [place] [address] Neurology 05/09/15 04/23/16 Charleen Lynne MD 909 [place] [address] Oncology 06/14/15 12/19/18 Olimpia Williamson, RN Nurse Coordinator Oncology 06/14/15 04/23/16 Rin Dewitt RN Nurse Coordinator Neurology 07/24/15 04/23/16 Rin Dewitt RN Nurse Coordinator Neurology 10/25/15 10/12/17 Qian Rodriguez MD 7 [facility] 353 [place] [address] Nephrology 11/13/15 06/16/16 Sherri Kingston PA 420 [facility] 394 [place] [address] Physician Director Statistical Programming Physician Director Statistical Programming 03/20/16 Olimpia Williamson, RN Nurse Coordinator Oncology 06/26/16 06/26/16 Olimpia Williamson, RN Nurse Coordinator Oncology 06/26/16 06/16/18 Christopher Quiroga MD [place] [facility] 675 [address] [facility] 200 [place] [address] Oncology 07/02/16 Claudia Yousif RN Nurse Coordinator Gastroenterology 02/09/17 09/16/22 Lance Simpson PA-C 909 [place], [place] 411925 Physician Director Statistical Programming Physician Director Statistical Programming 01/07/18 Olimpia Williamson RN Specialty Mortgage Loan Processing Clerk Hematology & Oncology 05/06/18 12/19/18 Sherri Kingston PA [address] [place] [address] Urology [place], [place] [address] Physician Director Statistical Programming Physician Director Statistical Programming 12/21/18 Delvin Bob MD [address] [place] [address] [phone] Internal Medicine 11/11/19 Charleen Lynne MD [address] [place] [address] 348525 Assigned Cancer Care Provider 12/23/19 03/23/21 Shakira Chapa MD [place] [place] 06/29/2020 Assigned Surgical Provider 12/23/19 07/14/20 Zoltan Eric DPM [address] [facility] 300 [place] [address] Assigned Musculoskeletal Provider 12/23/19 07/26/21 Delvin Bob MD [address] [place] [address] Assigned PCP 12/08/19 02/14/22 Maximo Mathis DO 909 [place] [address] Assigned Neuroscience Provider 02/12/20 08/09/21 Sherri Kingston PA 909 [facility] [place] [address] Assigned Surgical Provider 07/15/20 10/06/20 Pedro Winchester MD 6405 [place] [address] Assigned Heart and Vascular Provider 08/05/20 01/31/22 Shakira Chapa MD [place] 06/29/2020 Assigned Surgical Provider 10/07/20 10/13/20 Jovanni Dempsey MD 600 [place], [place] 7658[address] Assigned Nephrology Provider 03/24/21 03/14/22 Jovanni Dempsey MD [address] [place] [address] 096542 Assigned Nephrology Provider 03/15/22 03/21/22 Len Hooks MD 717 [facility] 353 [place] [address] Assigned Nephrology Provider 03/22/22 12/26/22 Delvin Bob MD 420 [facility] 250 [place] [address] Assigned PCP 04/26/22 12/12/22 Love Hernandez PA-C 6363 [facility] S [facility] 500 [place] [address] Physician Director Statistical Programming Urology 12/01/22 Conrado Evans MD [address] [place] [address] [place] [address] Assigned Nephrology Provider 12/27/22 06/21/24 Love Hernandez PA-C 6363 [facility] S [facility] 500 [place] [address] Assigned Surgical Provider 01/17/23 [place] [address] [address] [place], [place] 8[address] Assigned Gastroenterology Provider 07/23/23 Everardo Grant MD [address] [place] [address] 757355 Physician Infectious Diseases 09/23/23 Rey Billings MD [address] [place] [address] 506055 Assigned Infectious Disease Provider 10/23/23 Conrado Evans MD [address] [place] [address] Nephrology 08/25/24 Delvin Lopez MD [address] [place] [address] Nephrology 08/25/24 Carissa Putnam RN [facility] [address] [place] [address] Specialty Mortgage Loan Processing Clerk Pharmacy 10/10/24 10/10/24 documented as of this encounter
--- OUTSIDE RECORDS SUMMARY | 2024-10-13 08:57 | XMS_ITS | Encounter Summary ---
Author Organization [place] Address [address] [place] [address] Care Team Providers Care Digital Content Producer Name Role Phone Robert Malrey MD Primary Care Provider [phone] Tayo Lacey MD Unavailable [phone] Christopher Quiroga MD Unavailable Lance Simpson-C Unavailable Sherri Kingston Unavailable [phone] Delvin Bob MD Unavailable Love Hernandez-C Unavailable Love Hernandez-C Unavailable Gordy Nickerson MD Unavailable [phone] Everardo Grant MD Unavailable Rey Billings MD Unavailable [phone] Conrado Evans MD Unavailable [phone] Delvin Lopez MD Unavailable [phone] Reason for Visit * Reason Comments Medication Refill Encounter Details Date Type Department Care Team (Late st Contact Info) Description 09/07/2024 Refill [facility] 909 [place] [address] Conrado Evans MD [address] [place] [address] 353 [facility] 1932 [place] [address] Medication Refill Social History Tobacco Use Types Packs/Day Years [...] on file 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 Gender Identity Not on file Sexual Orientation Not on file Occupation Industry Job Start Date Job End Date Not on file Not on file Not on file Not on file documented as of this encounter Plan of Treatment Upcoming Encounters Date Type Department Care Team (Late st Contact Info) Description 10/25/2024 10:00 AM CDT Virtual Visit [facility] Health & Addiction [facility] [address] [place] [address] Edith Brito 10/26/2024 8:30 AM CDT Lab [facility] Center [facility] Ctr [facility] [address] [facility] 200 [place] [phone] Conrado Evans MD 717 [facility] 353 [facility] 1932 [place] [address] documented as of this encounter Visit Diagnoses Diagnosis 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 documented in this encounter Additional Health Concerns 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, 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 Parvovirus 07/16/2023 07/16/2023 10/03/2024 4:22 PM CDT Assessment Noted Time PHQ-9 Depression Total Score: 18 023 10:27 AM PURCHASING DEPARTMENT CLERK documented as of this encounter Care Teams Digital Content Producer Relationship Specialty Start Date End Date Robert Marley MD [address] [address] PCP - General Family Practice 12/08/10 Tayo Lacey MD [facility] [address] [place] [address] Cardiology 08/30/[address] [facility] [address] 200 [place] [address] Oncology 07/02/16 Lance Simpson PA-C [address] [place] [address]625 Physician Recreation Therapy Teacher Physician Recreation Therapy Teacher 01/07/18 Sherri Kingston PA [address] [place] [address] Urology [place], [place] [address] Physician Recreation Therapy Teacher Physician Recreation Therapy Teacher 12/21/18 Delvin Bob MD [address] [place] [address] Internal Medicine 11/11/19 Love Hernandez PA-C [address] [place] 500 [place] [address] Physician Recreation Therapy Teacher Urology 12/01/22 Love Hernandez PA-C [address] [place] 500 [place] [address] Assigned Surgical Provider 01/17/23 [place] [address] [place] [address] Assigned Gastroenterology Provider 07/23/23 Everardo Grant MD [address] [place] [address] Physician Infectious Diseases 09/23/23 Rey Billings MD [address] [place] [address] Assigned Infectious Disease Provider 10/23/23 Conrado Evans MD [address] [place] [address] 353 [facility] [address] [place] [address] Nephrology 08/25/24 Delvin Lopez MD [address] [place] [address] Nephrology 08/25/24 documented as of this encounter
--- OUTSIDE RECORDS SUMMARY | 2024-10-13 08:57 | XMS_ITS | Encounter Summary ---
Author Organization [place] Address [address] [place] [address] Care Team Providers Care Marina Dry Dock Manager Name Role Phone Robert Marley MD Primary Care Provider [phone] Tayo Lacey MD Unavailable [phone] Christopher Quiroga MD Unavailable Lance Simpson PA-C Unavailable Sherri Kingston Unavailable [phone] Delvin Bob MD Unavailable Love Hernandez-C Unavailable Love Hernandez-C Unavailable Gordy Nickerson MD Unavailable [phone] Everardo Grant MD Unavailable Rey Billings MD Unavailable [phone] Conrado Evans MD Unavailable [phone] Delvin Lopez MD Unavailable [phone] Encounter Details Date Type Department Care Team (Late st Contact Info) Description 10/07/2024 [facility] 9 [place] [address] Senait Flores RN Social History Tobacco Use Types Packs/Day [...] on file 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 Urine protein / creatinine ratio = 1.92 (10/04/24) Current Sirolimus dose 3 mg daily Please decrease Sirolimus dose to 2 mg daily. Check Transplant labs in 2 weeks with a urine protein creatinine.(UPC) Then monthly transplant labs with a urine protein creatinine (UPC x 3) Will resume every other month if stable after 3 checks Lab orders placed and medication RX updated. Valeri Munguia LPN on 10/07/2024 at 4:10 PM * Telephone Encounter - Valeri Munguia LPN - 10/07/2024 3:39 PM CDT Left message to return call. MyChart message also sent. Valeri Munguia LPN on 10/07/2024 at 3:39 PM * Telephone Encounter - Senait Flores RN - 10/07/2024 12:59 PM CDT Images from the original note were not included. Urine protein / creatinine ratio = 1.92 (10/04/24) Current Sirolimus dose 3 mg daily Delvin Lopez MD Buboltz, Brittany J RN Reduced sirolimus to 2 mg po every day aiming for a goal ~3 given proteinuria, PAUL and declining GFR. Repeat labs in 2 weeks then monthly with UPC x3 months if, stable can reduce frequency to q2 months Thanks EMILY task: Decrease Sirolimus dose to 2 mg daily Check Transplant labs in 2 weeks with UPC Then monthly transplant labs with UPC x 3 Will resume every other month if stable after 3 checks documented in this encounter Plan of Treatment Upcoming Encounters Date Type Department Care Team (Late st Contact Info) Description 10/25/2024 10:00 AM CDT Virtual Visit [facility] Mental [facility] & [facility] [address] [place] [address] Edith Brito 10/26/2024 8:30 AM CDT Lab [facility] Center [facility] [address] [facility] 200 [place] [address] Conrado Evans MD 717 [facility] 353 [facility] 1932 [place] [address] Scheduled Orders Name Type Priority Associated Diagnoses Orde r Schedule Tacrolimus by Tandem Mass Spectrometry Lab Routine Kidney replaced by transplant Expected: 10/21/2024 (Approximate), Expires: 11/07/2024 Sirolimus by Tandem Mass Spectrometry Lab Routine Kidney replaced by transplant Expected: 10/21/2024 (Approximate), Expires: 11/07/2024 Amylase Lab Routine Kidney replaced by transplant Expected: 10/21/2024 (Approximate), Expires: 11/07/2024 Lipase Lab Routine Kidney replaced by transplant Expected: 10/21/2024 (Approximate), Expires: 11/07/2024 Basic metabolic panel Lab Routine Kidney replaced by transplant Expected: 10/21/2024 (Approximate), Expires: 11/07/2024 Protein random urine Lab Routine Kidney replaced by transplant Expected: 10/21/2024 (Approximate), Expires: 11/07/2024 Protein random urine Lab Routine Kidney replaced by transplant Monthly for 3 Occurrences starting 10/07/2024 until 10/07/2025 documented as of this encounter 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 documented in this encounter Additional Health Concerns 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, 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 Assessment Noted Time PHQ-9 Depression Total Score: 18 023 10:27 AM TOP KNITTER documented as of this encounter Care Teams Marina Dry Dock Manager Relationship Specialty Start Date End Date Robert Marley MD [facility] [address] [place] [address] PCP - General Family Practice 12/08/10 Tayo Lacey MD [facility] [id number] [place] [address] Cardiology 08/30/14 Christopher Quiroga MD [facility] [address] [place] [address] Oncology 07/02/16 Lance Simpson PA-C [address] [place] [address] Physician Services Advisor Physician Services Advisor 01/07/18 Sherri Kingston PA [address] [place] [address] Urology [place], [place] [phone] Physician Services Advisor Physician Services Advisor 12/21/18 Delvin Bob MD [address] [place] [address] 250 [place], [place] 7885[address] Internal Medicine 11/11/19 Love Hernandez PA-C [address] [place] 500 [place], [place] [address] Physician Services Advisor Urology 12/01/22 Love Hernandez PA-C [address] [place] [address] [place], [place] [address]84[address] Assigned Surgical Provider 01/17/23 [place] [address], [place] [address] Assigned Gastroenterology Provider 07/23/23 Everardo Grant MD [address] [place] [address] 788905 Physician Infectious Diseases 09/23/23 Rey Billings MD [address] [place] [address]305 Assigned Infectious Disease Provider 10/23/23 Conrado Evans MD 717 [facility] 353 [facility] [address] [place] [address] Nephrology 08/25/24 Delvin Lopez MD [address] [place] [address] 024245 Nephrology 08/25/24 documented as of this encounter
--- OUTSIDE RECORDS SUMMARY | 2024-10-13 08:57 | XMS_ITS | Encounter Summary ---
Author Organization [facility] Address [address] [place] [address] Care Team Providers Care Carpenter Prototype Name Role Phone Robert Marley MD Primary Care Provider Irish Kim RN Unavailable [phone] Chana Cheng MD Unavailable [phone] Anoop Garcia MD Unavailable Unavailable Barbara Carlson MD Unavailable Tayo Lacey MD Unavailable [phone] Basil Plummer MD Unavailable Charleen Lynne MD Unavailable [phone] Olimpia Williamson RN Unavailable [phone] Rin Dewitt RN Unavailable [phone] Rin Dewitt RN Unavailable [phone] Qian Rodriguez MD Unavailable [phone] Sherri Kingston Unavailable [phone] Olimpia Williamson RN Unavailable [phone] Olimpia Williamson RN Unavailable [phone] Christopher Quiroga MD Unavailable Claudia Yousif RN Unavailable Lance Simpson PA-C Unavailable [phone] Olimpia Williamson RN Unavailable [phone] Sherri Kingston Unavailable [phone] Delvin Bob MD Unavailable [phone] Charleen Lynne MD Unavailable [phone] ChapaShakira zelaya MD Unavailable Unav ailable Zoltan Eric DPM Unavailable [phone] Delvin Bob MD Unavailable [phone] Maximo Mathis DO Unavailable + Sherri Kingston Unavailable [phone] Pedro Winchester MD Unavailable [phone] ChapaShakira zelaya MD Unavailable Unav ailable Jovanni Dempsey MD Unavailable [phone] Jovanni Dempsey MD Unavailable [phone] Len Hooks MD Unavailable Delvin Bob MD Unavailable Love Hernandez-C Unavailable [phone] Conrado Evans MD Unavailable [phone] Love Hernandez-C Unavailable Gordy Nickerson MD Unavailable Everardo Grant MD Unavailable Rey Billings MD Unavailable [phone] Conrado Evans MD Unavailable Delvin Lopez MD Unavailable [phone] Carissa Putnam RN Unavailable [phone] Encounter Details Date Type Department Care Team (Late st Contact Info) Description 08/30/2014 External Order Results [facility] 2nd [facility], [facility] [address] [phone] Social History Tobacco Use Types Packs/Day Years Used Date Smoking Tobacco: Former Smokeless Tobacco: Never Alcohol Use Standard Drinks/Week Comments No 0 (1 standard drink = 0.6 oz pur e alcohol) Comments No Sex and Gender Information Value Date Recorded Sex Assigned at Not on file 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 Gender Identity Not on file Sexual Orientation Not on file Occupation Industry Job Start Date Job End Date Not on file Not on file Not on file Not on file documented as of this encounter Progress Notes * Lance Gaona RN - 09/04/2014 10:44 AM CDTQuick Note: Labs stable documented in this encounter Plan of Treatment Upcoming Encounters Date Type Department Care Team (Late st Contact Info) Description 10/25/2024 10:00 AM CDT Virtual Visit [facility] [address] [place] [address] Edith Brito 10/26/2024 8:30 AM CDT Lab [facility] [id number] [place] [address] [facility] [address] [place] [phone] Conrado Evans MD 717 [facility] 353 [facility] [address] [place], [place] [address] documented as of this encounter Procedures Procedure Name Priority Date/Time Associated Diagnosis Comments EXTERNAL LAB RESULTS Routine 08/30/2014 8:50 AM CDT documented in this encounter Results * (ABNORMAL) TXP External Lab Result (08/30/2014 8:50 AM CDT) Calcium (External) 9.6 8.4 - 10.6 mg/dL [facility] Urea Nitrogen (External) 23 5 - 24 mg/dL [facility] Creatinine (External) 0.9 0.5 - 1.5 mg/dL [facility] Glucose (External) 130(H) 60 - 115 mg/dL [facility] Sodium (External) 139 135 - 149 mmol/L [facility] Potassium (External) 4.6 3.6 - 5.1 mmol/L [facility] Chloride (External) 104 96 - 114 mmol/L [facility] CO2 (External) 26 20 - 32 mmol/L [facility] Amylase (External) 61 18 - 89 U/L [facility] Lipase Level (External) 67 23 - 300 U/L [facility] INR (External) 1.7(H) 0.88 - 1.12 [facility] WBC Count (External) 3.5(L) 5.0 - 10.0 K/uL [facility] RBC Count (External) 4.82 3.9 - 5.03 M/uL [facility] Hemoglobin (External) 13.0 12.0 - 15.5 g/dL [facility] Hematocrit (External) 41.5 34.9 - 44.5 % [facility] MCV (External) 86 82 - 98 fL [facility] MCH (External) 27 27 - 34 pg [facility] MCHC (External) 31(L) 32 - 36 g/dL [facility] Platelet Count (External) 176 150 - 450 K/uL [facility] % Neutrophils (External) 72.3(H) 50 - 70 % [facility] % Lymphocytes (External) 15.4(L) 25 - 45 % [facility] % Monocytes (External) 7.1 0 - 11 % [facility] % Eosinophils (External) 4.3 0 - 7 % [facility] % Basophils (External) 0.9 0 - 3 % [facility] Absolute Neutrophils (External) 2.53 1.7 - 7.0 K/uL [facility] Absolute Lymphocytes (External) 0.54(L) 0.9 - 2.9 K/uL [facility]DE SCAN Absolute Monocytes (External) 0.25(L) 0.3 - 0.9 K/uL [facility]DE SCAN Absolute Eosinophils (External) 0.15 0.0 - 0.5 K/uL LABDE SCAN Absolute Basophils (External) 0.03 0.0 - 0.2 K/uL LABDE SCAN Everolimus (External) 3.2 ng/mL LABDE SCAN 08/30/2014 8:50 AM RENZOT Neeta ROSALES PFT - 09/04/2014 9:15 AM CDT Verified by Guerrero Pinzon on 08/30/2014. Verified by Tayla Dodson on 09/04/2014. 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 Rule Out COVID-19 04/19/2020 04/20/2020 04/20/2020 6:34 AM AIRCRAFT INSPECTION RECORD CLERK Rule Out COVID-19 12/15/2020 12/15/2020 12/15/2020 4:33 PM CDT Rule Out C-difficile 01/06/2021 01/08/2021 021 11:43 AM AIRCRAFT INSPECTION RECORD CLERK Rule Out C-difficile 07/10/2021 07/10/2021 022 5:56 PM CDT Rule Out C-difficile 07/16/2023 07/16/2023 024 9:21 PM CDT Rule Out Parvovirus 07/16/2023 07/16/2023 07/19/19 24 12:29 PM CDT Parvovirus 07/16/2023 07/16/2023 10/03/2024 4:22 PM CDT [id number] Comment:This patient was exposed to a person with a known [employer] ASS[employer]IATE FISHING and has the potential for having acquired this pathogen of concern. The [place] Department of Health ([facility]) and CDC recommend that we screen this patient to prevent the spread of these organisms within our healthcare facility. Infection Prevention has placed orders for collecting a rectal swab for [employer]ING to evaluate if this patient is now a carrier. This patient was identified to have a low risk exposure in which case Contact Precautions are not necessary unless the patient tests positive. Screening is voluntary. Please notify Infection Prevention if the patient declines testing. Additional information and resources can be found on the Infection Prevention [employer] Sharepoint page. 08/04/2023 08/04/2023 02/02/2024 11:39 PM AIRCRAFT INSPECTION RECORD CLERK Rule Out Parvovirus 09/28/2023 09/28/2023 10/05/19 24 11:41 PM CDT documented as of this encounter Care Teams Carpenter Prototype Relationship Specialty Start Date End Date Robert Marley MD [facility] [address] [place] [address] PCP - General Family Practice 12/08/10 GuIrish little RN Registered Nurse Transplant 05/26/14 09/20/14 Chana Cheng MD [facility] [address] [place] [address] Nephrology 05/26/14 11/12/15 Anoop Garcia MD [facility] [address] [place] [address] Transplant 05/26/14 02/02/18 Barbara Carlson MD [address] [place] [phone] Referring Physician Nephrology 08/30/14 11/12/15 Tayo Lacey MD [address] [place] [phone] Cardiology 08/30/14 Basil Plummer MD [address] [place], [place] [address] Neurology 05/09/15 04/23/16 Charleen Lynne MD [address] [place], [place] [address] Oncology 06/14/15 12/19/18 Olimpia Williamson RN Nurse Coordinator Oncology 06/14/15 04/23/16 Rin Dewitt RN Nurse Coordinator Neurology 07/24/15 04/23/16 Rin Dewitt RN Nurse Coordinator Neurology 10/25/15 10/12/17 Qian Rodriguez MD [address]17 [facility] [place] [address] [place] [address] Nephrology 11/13/15 06/16/16 Sherri Kingston PA 420 [facility] [address] [place], [place] [address] Physician Tool Crib Attendant Physician Tool Crib Attendant 03/20/16 Olimpia Williamson, RN Nurse Coordinator Oncology 06/26/16 06/26/16 Olimpia Williamson, RN Nurse Coordinator Oncology 06/26/16 06/16/18 Christopher Quiroga MD [facility] [address] [facility] [address] [place], [place] [address] Oncology 07/02/16 Claudia Yousif RN Nurse Coordinator Gastroenterology 02/09/17 09/16/22 Lance Simpson PA-C [address] [place], [place] [address] Physician Tool Crib Attendant Physician Tool Crib Attendant 01/07/18 Olimpia Williamson, RN Specialty Kosher Butcher Hematology & Oncology 05/06/18 12/19/18 Sherri Kingston PA 909 [facility] Urology [place], [place] [address] Physician Tool Crib Attendant Physician Tool Crib Attendant 12/21/18 Delvin Bob MD 420 [facility] 250 [place], [place] [address] Internal Medicine 11/11/19 Charleen Lynne MD [address] [place], [place] [address] Assigned Cancer Care Provider 12/23/19 03/23/21 Shakira Chapa MD [place] 06/29/2020 Assigned Surgical Provider 12/23/19 07/14/20 Zoltan Eric DPM [address] [facility] [address] [place], [place] [address] Assigned Musculoskeletal Provider 12/23/19 07/26/21 Delvin Bob MD [address] [place] [address] 250 [place], [place] [address] Assigned PCP 12/08/19 02/14/22 Maximo Mathis DO [address] [place], [place] [address] Assigned Neuroscience Provider 02/12/20 08/09/21 Sherri Kingston PA 909 [facility] [place], [place] [address] Assigned Surgical Provider 07/15/20 10/06/20 Pedro Winchester MD [address] [place] [address] Assigned Heart and Vascular Provider 08/05/20 01/31/22 Shakira Chapa MD [place] OF 06/29/2020 Assigned Surgical Provider 10/07/20 10/13/20 Jovanni Dempesy MD [address] [place], [place] [address] Assigned Nephrology Provider 03/24/21 03/14/22 Jovanni Dempsey MD [address] [place], [place] [address] Assigned Nephrology Provider 03/15/22 03/21/22 Len Hooks MD [address] [place] [address] [place], [place] [address] Assigned Nephrology Provider 03/22/22 12/26/22 Delvin Bob MD [address] [facility] [address] [place], [place] [address] Assigned PCP 04/26/22 12/12/22 Love Hernandez PA-C [address] [place] [address] [place] [address] Physician Tool Crib Attendant Urology 12/01/22 Conrado Evans MD [address] [place] [address] [facility] [address] [place] [address] Assigned Nephrology Provider 12/27/22 06/21/24 Love Hernandez PA-C [address] [place] [address] [place] [address] Assigned Surgical Provider 01/17/23 [place] [address] [facility] [address] Assigned Gastroenterology Provider 07/23/23 Everardo Grant MD [address] [place], [place] [address] Physician Infectious Diseases 09/23/23 Rey Billings MD [address] [place] [id number] Assigned Infectious Disease Provider 10/23/23 Conrado Evans MD [address] [place] [address] [place] [address] [facility] [address] [place], [place] [address] Nephrology 08/25/24 Delvin Lopez MD [address] [place] [address] Nephrology 08/25/24 Carissa Putnam, RN [facility] [address] [place], [place] [id number] Specialty Kosher Butcher Pharmacy 10/10/24 10/10/24 documented as of this encounter
--- OUTSIDE RECORDS SUMMARY | 2024-10-13 08:58 | XMS_ITS | Encounter Summary ---
Author Organization [facility] Address [address] [place] [address] Care Team Providers Care Banana Room Cutter Name Role Phone Mayte Davis MD Primary Care Provider [phone] Berna Kruse MD Unavailable [phone] Maya Hines RN Unavailable Unavailable Roxanna Armas RN Unavailable [phone] Irish Kim RN Unavailable [phone] Chana Cheng MD Unavailable [phone] Anoop Garcia MD Unavailable Unavailable Barbara Carlson MD Unavailable Tayo Lacey MD Unavailable [phone] Basil Plummer MD Unavailable Charleen Lynne MD Unavailable [phone] Olimpia Williamson RN Unavailable [phone] Rin Dewitt RN Unavailable [phone] Rin Dewitt RN Unavailable [phone] Qian Rodriguez MD Unavailable [phone] Sherri Kingston Unavailable [phone] Olimpia Williamson RN Unavailable [phone] Olimpia Williamson RN Unavailable [phone] Christopher Qurioga MD Unavailable Claudia Yuosif RN Unavailable Lance Simpson PA-C Unavailable [phone] Olimpia Williamson RN Unavailable [phone] [facility], Sherri Klein PA Unavailable Lisbeth, Delvin England MD Unavailable Charleen Lynen MD Unavailable [facility], Shakira Agosto MD Unavailable Unav ailable Nahid Ericemrose CAMPBELLM Unavailable [phone] Maskell, Delvin England MD Unavailable Maximo Mathis DO Unavailable + [facility], Sherri PENNINGTON Unavailable Pedro Winchester MD Unavailable [phone] Chapa, Shakira Agosto MD Unavailable Unav ailable Jovanni Dempsey MD Unavailable Jovanni Dempsey MD Unavailable Len Hooks MD Unavailable Lisbeth, Delvin England MD Unavailable Love Hernandez-C Unavailable [phone] Conrado Evans MD Unavailable Love Hernandez PA-C Unavailable [phone] Gordy Nickerson MD Unavailable [phone] Everardo Grant MD Unavailable Rey Billings MD Unavailable Conrado Evans MD Unavailable Delvin Lopez MD Unavailable [phone] Carissa Putnam RN Unavailable [phone] Encounter Details Date Type Department Care Team (Late st Contact Info) Description 04/16/2010 Office Visit-[facility] [place] [address] [facility] [address] [place] [address] Sagar Henry MD [address] [facility] [address] [place] [address] Social History Tobacco Use Types Packs/Day Years Used Date Smoking Tobacco: Never Assessed Comments Unknown Sex and Gender Information Value Date Recorded Sex Assigned at Not on file 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 DATE: 04/16/2010 ROXANNA MONZON DATE OF : 1965 AGE: [age] years old Referring Physician: MAYTE DAVIS Referring Clinic: [facility] CURRENT DIAGNOSES 1. - Syncope, 780.2 2. Diabetes Mellitus-with Peripheral Neuropathy, 250.60 ALLERGIES MEDICATIONS (prior to changes made today) 1. Lantus 100 unit/mL Solution, Take as Directed 2. Humalog 100 unit/mL Solution, Take as Directed 3. Neurontin 300 mg Capsule, 1 three times daily 4. clonazepam 0.5 mg Tablet, 4 p.o. qHS 5. tizanidine 2 mg Tablet, 2 p.o. qHS CHIEF COMPLAINTS fainting spells for the past 6 months, unstable bp HISTORY OF PRESENT ILLNESS It is a pleasure to see Ms. Monzon at the request of Dr. Mayte Davis. She has had recurrent dizzy spells and fainting episodes. Ms. Monzon is a very delightful 44-year-old lady with at least an eighteen year history of diabetes mellitus complicated by peripheral neuropathy and diabetic retinopathy. She tells that she has peripheral vascular disease, though this is not obvious by physical examination. On further questioning I wonder if she might be confusing peripheral vascular disease with peripheral neuropathy. She has been having dizzy spells and fainting spells over the past few weeks. She tells me that these are most prominent in the morning and occur at least once a week. If she gets up quickly she willfeel a sensation of blood rushing to her head. She will lose her vision and her balance and then she will keel over. When she hits something on the ground she would wake up. At work if she has prolonged standing she would the same feeling as well. She has been to the emergency room. She tells me that on one occasion her blood pressure was 168/119 on arrival. When everything checked out fine and she was told she could go she felt dizzy. Her blood pressure was rechecked and it was 73/53. She definitely has evidence of orthostasis today. Sitting blood pressure was 124/74 and heart rate was 78. When she stood up the blood pressure fell to 102/60 and heart rate went up to 92. She was not symptomatic at this time. As a result of these blood pressure variations she has been taken off her blood pressure medications. She also wears elastic stockings, but they have not been of great help. Her cardiac examination is normal. I also see that she had a stress nuclear study, which shows normal perfusion and normal left ventricular systolic function. She does not smoke, drink or abuse drugs. She is not sure what her lipid levels are. Aside from herhistory of possible peripheral vascular disease, there is no history of cerebrovascular accident, myocardial infarctions or cardiac arrhythmias. Her electrocardiogram today shows a sinus rhythm at a rate of 87 and is essentially normal. PAST HISTORY Past Medical Illnesses: diabetic retinopathy, diabetes mellitus- insulin dependent, peripheral neuropathy, hypotension, PVD, hypercholesterolemia Cardiology Procedures-NonInvasive: myocardial perfusion (Nuc) Oct 2005, Dec 2009, echocardiogram Jan 2007 Left Ventricular Ejection Fraction: EF<GT>55% by nuclear study -Dec 2009 Nuclear Results: 12/2009 no ischemia or infarct FAMILY HISTORY: Father - hypertension; Mother - Age 67, septic shock; CARDIAC RISK FACTORS SOCIAL HISTORY Alcohol Use - does not use alcohol; Smoking - does not smoke; Diet - regular diet; Lifestyle - and children; Exercise - snap fitness, active lifestyle; Seat Belt Use - always; 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 INTEGUMENTARY denies any change in hair or nails, rashes, or skin lesions. EYES extra stem vessels, receiving treatments EARS, NOSE, THROAT, MOUTH denies any hearing loss, epistaxis, hoarseness or difficulty speaking. RESPIRATORY dyspnea, with syncope episodes CARDIOVASCULAR syncope episodes for the past 6 month, edema of the legs of the ankles of the feet ABDOMINAL denies ulcer disease, hematochezia or melena. MUSCULOSKELETAL denies any history of arthritic symptoms or back problems. NEUROLOGICAL denies any history of recurrent strokes, headaches, TIA, or seizure disorder. PSYCHIATRIC denies any history of depression, substance abuse or change in cognitive functions. ENDOCRINE insulin dependent diabetes mellitus HEMATOLOGICAL/IMMUNOLOGIC denies any food allergies, seasonal allergies, bleeding disorders. PHYSICAL EXAMINATION VITAL SIGNS: Blood Pressure: 100/70Sitting, Right arm, regular cuff Pulse- 88.00/min. Weight- 135.80 lbs. Height- 66.00 Temperature- .00 CONSTITUTIONAL cooperative, alert and oriented,well developed, well nourished, in no acute distress. SKIN warm and dry to touch, no apparent skin lesions, or masses noted. HEAD normocephalic, atraumatic EYES Pupils equal and round, conjunctivae and lids unremarkable, sclera white, no xanthalasma ENT no pallor or cyanosis, dentition good NECK carotid pulses are full and equal bilaterally, JVP normal, no carotid bruit, no thyromegaly CHEST normal symmetry, no tenderness to palpation, normal respiratory excursion, no intercostal retraction, no use of accessory muscles, clear to auscultation and percussion. CARDIAC regular rhythm, S1 normal, S2 normal, No S3 or S4, Apical impulse not displaced, no murmurs, gallops or rubs detected. ABDOMEN abdomen soft, bowel sounds normoactive, no masses, no hepatosplenomegaly, non- tender, no bruits PERIPHERAL PULSES pulses full and equal in all extremities, no bruits auscultated. EXTREMITIES & BACK no deformities, clubbing, cyanosis, erythema or edema observed. There are no spinal abnormalities noted. Normal muscle strength and tone. NEUROLOGICAL no gross motor deficits noted, affect appropriate, oriented to time, person and place. MEDICATIONS UPDATED/STARTED TODAY: clonazepam 0.5 mg Tablet, 4 p.o. qHS, #0 Humalog 100 unit/mL Solution, Take as Directed, #0 Lantus 100 unit/mL Solution, Take as Directed, #0 Neurontin 300 mg Capsule, 1 three times daily, #0 tizanidine 2 mg Tablet, 2 p.o. qHS, #0 IMPRESSIONS/PLAN I feel certain that this lady's symptoms are from orthostatic hypotension. It would not be surprising with a long history of diabetes mellitus and history of peripheral neuropathy. I am sure that shehas autonomic neuropathy as well. I am reassured to see the electrocardiogram is normal and her stress perfusion study was also normal. I do not think any further cardiac tests are necessary at this stage. As for treatment, I went over the importance of keeping herself well-hydrated, as well as not getting up and changing posture too quickly. I have advised her to wear abdominal bands, which by compression of the abdominal veins would hopefully augment venous return. I will see her again in a few week's time for follow-up. If abdominal banding together with compression stockings do not result in significant symptomatic relief, we may have to move on to medical therapy such as Florinef and midodrine. I am a little hesitant to use these medications due to the side effects, plus the fact that it may worsen her diabetic control. TODAYS ORDERS 1. Return Visit 6 weeks Saagr Henry M.D. documented in this encounter Plan of Treatment Upcoming Encounters Date Type Department Care Team (Late st Contact Info) Description 10/25/2024 10:00 AM CDT Virtual Visit [facility] [address] [place] [phone] Edith Brito 10/26/2024 8:[address] [facility] [address] [place] [address] [place] [phone] Conrado Evans MD [address] [facility] 353 [facility] [address] [place], [place] [address] documented as of this encounter Visit Diagnoses [...] the IP on-call for review. Meena Torres, [facility] Infection Prevention 07/11/2019 at 3:56 PM [...] Out COVID-19 04/19/2020 04/19/2020 04/19/2020 1:56 PM SONOSCOPE OPERATOR Rule Out COVID-19 04/19/2020 04/20/2020 04/20/2020 6:34 AM SONOSCOPE OPERATOR Rule Out COVID-19 12/15/2020 12/15/2020 12/15/2020 4:33 PM CDT Rule Out C-difficile 01/06/2021 01/08/2021 021 11:43 AM SONOSCOPE OPERATOR Rule Out C-difficile 07/10/2021 07/10/2021 022 5:56 PM CDT Rule Out C-difficile 07/16/2023 07/16/2023 024 9:21 PM CDT Rule Out Parvovirus 07/16/2023 07/16/2023 07/19/19 24 12:29 PM CDT Parvovirus 07/16/2023 07/16/2023 10/03/2024 4:22 PM CDT [id number] Comment:This patient was exposed to a person with a known CP-TOLL LINE INSPECTOR and has the potential for having acquired this pathogen of concern. The [place] Department of Health ([facility]) and CDC recommend that we screen this patient to prevent the spread of these organisms within our healthcare facility. Infection Prevention has placed orders for collecting a rectal swab for CP-TOLL LINE INSPECTOR to evaluate if this patient is now a carrier. This patient was identified to have a low risk exposure in which case Contact Precautions are not necessary unless the patient tests positive. Screening is voluntary. Please notify Infection Prevention if the patient declines testing. Additional information and resources can be found on the Infection Prevention [employer] Sharepoint page. 08/04/2023 08/04/2023 02/02/2024 11:39 PM SONOSCOPE OPERATOR Rule Out Parvovirus 09/28/2023 09/28/2023 10/05/19 11:41 PM CDT documented as of this encounter Care Teams Banana Room Cutter Relationship Specialty Start Date End Date Mayte Davis MD [address] [address] PCP - General Family Practice 12/08/10 Berna Kruse MD [facility] [address] [place] [address] Nephrology 07/15/12 05/25/14 Maya Hines RN Registered Nurse Transplant 07/15/12 07/15/12 Roxanna Armas RN Registered Nurse Transplant 07/15/12 05/25/14 Irish Kim RN Registered Nurse Transplant 05/26/14 09/20/14 Chana Cheng MD [place] [address] [place] [address] Nephrology 05/26/14 11/12/15 Anoop Garcia MD [facility] [address] [place] [address] Transplant 05/26/14 02/02/18 Barbara Carlson MD [address] [place] [phone] Referring Physician Nephrology 08/30/14 11/12/15 Tayo Lacey MD [address] [place] [phone] Cardiology 08/30/14 Basil Plummer MD [address] [place] [address] [id number] Neurology 05/09/15 04/23/16 Charleen Lynne MD [address] [place] [address]46645 Oncology 06/14/15 12/19/18 Olimpia Williamson, RN Nurse Coordinator Oncology 06/14/15 04/23/16 Rin Dewitt, RN Nurse Coordinator Neurology 07/24/15 04/23/16 Rin Dewitt, RN Nurse Coordinator Neurology 10/25/15 10/12/17 Qian Rodriguez MD [address] [place] [address] 686584 Nephrology 11/13/15 06/16/16 Sherri Kingston PA [address] [place] [address] [address] [place] [address] Physician Assistance Representative Physician Assistance Representative 03/20/16 Olimpia Williamson, RN Nurse Coordinator Oncology 06/26/16 06/26/16 Olimpia Williamson, RN Nurse Coordinator Oncology 06/26/16 06/16/18 Christopher Quiroga MD [facility] [address] [facility] 200 [place] [address] Oncology 07/02/16 Claudia Yousif RN Nurse Coordinator Gastroenterology 02/09/17 09/16/22 Lance Simpson PA-C [address] [place] [address] Physician Assistance Representative Physician Assistance Representative 01/07/18 Olimpia Williamson, RN Specialty Brim Molder Hematology & Oncology 05/06/18 12/19/18 Sherri Kingston PA [address] [place] [address] Urology [place], [place] 864[address] Physician Assistance Representative Physician Assistance Representative 12/21/18 Delvin Bob MD [address] [place] [address] [address] [place] [address] Internal Medicine 11/11/19 Charleen Lynne MD [address] [place] [address] 266375 Assigned Cancer Care Provider 12/23/19 03/23/21 Shakira Chapa MD [facility] [place] OF 06/29/2020 Assigned Surgical Provider 12/23/19 07/14/20 Zoltan Eric DPM [address] [facility] [address] [place] [address] Assigned Musculoskeletal Provider 12/23/19 07/26/21 Delvin Bob MD [address] [place] [address] [address] [place] [address] Assigned PCP 12/08/19 02/14/22 Maximo Mathis DO [address] [place] [address] Assigned Neuroscience Provider 02/12/20 08/09/21 Sherri Kingston PA [address] [place] [address] [place] [address] Assigned Surgical Provider 07/15/20 10/06/20 Pedor Winchester MD 6405 [place] [address] Assigned Heart and Vascular Provider 08/05/20 01/31/22 Shakira Chapa MD [place] OF 06/29/2020 Assigned Surgical Provider 10/07/20 10/13/20 Jovanni Dempsey MD 600 [place], [place] 259602 Assigned Nephrology Provider 03/24/21 03/14/22 Jovanni Dempsey MD 600 [place] [address] Assigned Nephrology Provider 03/15/22 03/21/22 Len Hooks MD 717 [facility] 353 [place] [address] Assigned Nephrology Provider 03/22/22 12/26/22 Delvin Bob MD [address] [place] [address] 250 [place] [address] Assigned PCP 04/26/22 12/12/22 Love Hernandez PA-C 6[address] [facility] 500 [place] [address] Physician Assistance Representative Urology 12/01/22 Conrado Evans MD [address] [place] [address] 353 [facility] [address] [place] [address] Assigned Nephrology Provider 12/27/22 06/21/24 Love Hernandez PA-C 6[address] [facility] 500 [place], [place] 5913[address] Assigned Surgical Provider 01/17/23 [place] [address] [place] [address] Assigned Gastroenterology Provider 07/23/23 Everardo Grant MD [address] [place] [address] Physician Infectious Diseases 09/23/23 Rey Billings MD 909 [place] [address] Assigned Infectious Disease Provider 10/23/23 Conrado Evans MD [address] [facility] 353 [facility] [address] [place] [address] Nephrology 08/25/24 Delvin Lopez MD [address] [place] [address] 868135 Nephrology 08/25/24 Carissa Putnam RN [facility] [address] [place] [address] Specialty [facility]im [facility] 10/10/24 10/10/24 documented as of this encounter
--- OUTSIDE RECORDS SUMMARY | 2024-10-13 08:58 | XMS_ITS | Encounter Summary ---
Author Organization [facility] Address [address] [place] [address] Care Team Providers Care Farmworker Fruit Name Role Phone Robert Marley MD Primary Care Provider [phone] Tayo Lacey MD Unavailable [phone] Christopher Quiroga MD Unavailable Lance Simpson PA-C Unavailable Sherri Kingston Unavailable [phone] Delvin Bob MD Unavailable Love Hernandez-C Unavailable [phone] Love Hernandez-C Unavailable Gordy Nickerson MD Unavailable Everardo Grant MD Unavailable Rey Billings MD Unavailable [phone] Conrado Evans MD Unavailable [phone] Delvin Lopez MD Unavailable [phone] Carissa Putanm RN Unavailable [phone] Encounter Details Date Type Department Care Team (Late st Contact Info) Description 10/04/2024 Results Follow-Up [facility] Clinic [address] [place] [address] Susan Pelletier, RN Dx: EBV [...] on file 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 Gender Identity Not on file Sexual Orientation Not on file Occupation Industry Job Start Date Job End Date Not on file Not on file Not on file Not on file documented as of this encounter Plan of Treatment Upcoming Encounters Date Type Department Care Team (Late st Contact Info) Description 10/25/2024 10:00 AM CDT Virtual Visit [facility] [address] [place] [address] Edith Brito 10/26/2024 8:30 AM CDT Lab [facility] [address] [facility] [address] [place] [phone] Conrado Evans MD 716 [facility] 353 [facility] 1932 [place], [place] [address] documented as of this encounter Visit Diagnoses Diagnosis EBV (Patrick-Cole virus) viremia Infectious mononucleosis documented in this encounter Additional Health Concerns 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, 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 Assessment Noted Time PHQ-9 Depression Total Score: 18 023 10:27 AM HEAD SCHOOL 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 documented as of this encounter Care Teams Farmworker Fruit Relationship Specialty Start Date End Date Robert Marley MD [facility] [address] [place] [address] PCP - General Family Practice 12/08/10 Tayo Lacey MD [facility] [address] [place] [address] Cardiology 08/30/14 Christopher Quiroga MD [facility] [address] [facility] 200 [place] [address] Oncology 07/02/16 Lance Simpson PA-C [address] [place] [address] Physician Skidder Runner Physician Skidder Runner 01/07/18 Sherri Kingston PA [address] [place] [address] [place] 7[address]15 Physician Skidder Runner Physician Skidder Runner 12/21/18 Delvin Bob MD [address] [place] [address] 250 [place], [place] 3867[address] Internal Medicine 11/11/19 Love Hernandez PA-C [address] [place], [place] [address] Physician Skidder Runner Urology 12/01/22 Love Hernandez PA-C [address] [place] [address] Assigned Surgical Provider 01/17/23 [place] [address] [place] [address] Assigned Gastroenterology Provider 07/23/23 Everardo Grant MD [address] [place] [address] Physician Infectious Diseases 09/23/23 Rey Billings MD [address] [place] [address] Assigned Infectious Disease Provider 10/23/23 Conrado Evans MD [address] [place] [address] 353 [facility] [address] [place] [address] Nephrology 08/25/24 Delvin Lopez MD [address] [place] [id number] Nephrology 08/25/24 Carissa Putnam RN [facility] [address] [place] [address] 078674 Specialty Pattern Layout Worker Pharmacy 10/10/24 documented as of this encounter
--- OUTSIDE RECORDS SUMMARY | 2024-10-13 08:58 | XMS_ITS | Encounter Summary ---
Author Organization [facility] Address [address] [place] [address] Care Team Providers Care Ecological Technical Officer Name Role Phone Mayte Davis MD Primary Care Provider [phone] Berna Kruse MD Unavailable [phone] Maya Hines RN Unavailable Unavailable Roxanna Armas RN Unavailable [phone] Irish Kim RN Unavailable [phone] Chana Cheng MD Unavailable [phone] Anoop Garcia MD Unavailable Unavailable Barbara Carlson MD Unavailable Tayo Lacey MD Unavailable [phone] Basil Plummer MD Unavailable Charleen Lynne MD Unavailable [phone] Olimpia Williamson RN Unavailable [phone] Rin Dewitt RN Unavailable [phone] Rin Dewitt RN Unavailable [phone] Qian Rodriguez MD Unavailable [phone] Sherri Kingston Unavailable [phone] Olimpia Williamson RN Unavailable [phone] Olimpia Williamson RN Unavailable [phone] Christopher Quiroga MD Unavailable Claudia Yousif RN Unavailable Lance Simpson PA-C Unavailable Olimpia Williamson RN Unavailable [phone] [facility], Sherri Klein PA Unavailable Lisbeth, Delvin England MD Unavailable Charleen Lynne MD Unavailable [facility] [place], Shakira Agosto MD Unavailable Unav ailable Nahid Ericemrose [place] Unavailable [phone] [place], Delvin England MD Unavailable Maximo Mathis DO Unavailable + [facility], Sherri [place] Unavailable Pedro Winchester MD Unavailable [phone] Chapa, Shakira Agosto MD Unavailable Unav ailable Jovanni Dempsey MD Unavailable Jovanni Dempsey MD Unavailable Len Hooks MD Unavailable Lisbeth, Delvin England MD Unavailable Love Hernandez-C Unavailable [phone] Conrado Evans MD Unavailable Love Hernandez PA-C Unavailable Gordy Nickerson MD Unavailable Everardo Grant MD Unavailable Rey Billings MD Unavailable Conrado Evans MD Unavailable Delvin Lopez MD Unavailable [phone] Carissa Putnam RN Unavailable Encounter Details Date Type Department Care Team (Late st Contact Info) Description 04/26/2010 Office Visit-[facility] Heart [facility] [address] [facility] [address] [place] [address] Sagar Henry MD [address] [facility] [address] [place] [address] Social History Tobacco Use Types Packs/Day Years Used Date Smoking Tobacco: Never Assessed Comments Unknown Sex and Gender Information Value Date Recorded Sex Assigned at Not on file Legal Sex 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 DATE: 04/26/2010 ROXANNA MONZON DATE OF : 1965 AGE: [age] years old Referring Physician: MAYTE DAVIS Referring Clinic: [facility] CURRENT DIAGNOSES 1. - Syncope, 780.2 2. Diabetes Mellitus-with Peripheral Neuropathy, 250.60 ALLERGIES MEDICATIONS (prior to changes made today) 1. midodrine 2.5 mg Tablet, 1 p.o. three times daily 2. fludrocortisone 0.1 mg Tablet, 1 p.o. daily 3. Lantus 100 unit/mL Solution, Take as Directed 4. Humalog 100 unit/mL Solution, Take as Directed 5. Neurontin 300 mg Capsule, 1 three times daily 6. clonazepam 0.5 mg Tablet, 4 p.o. qHS 7. tizanidine 2 mg Tablet, 2 p.o. qHS CHIEF COMPLAINTS Abd. bands are not helping in keeping her from dizziness and Followup of - Syncope HISTORY OF PRESENT ILLNESS It is a pleasure for me to see Roxanna again for followup of her diabetic autonomic neuropathy. She diana delightful lady who I saw very recently. She has symptoms of severe dizziness and unsteadiness with loss of vision while standing or changing from supine to an upright position. She has been documented to have severe orthostasis, which was confirmed at her initial office visit. She has had a stress nuclear study, which showed normal myocardial perfusion and normal left ventricular systolic function. Initial electrocardiogram is normal. In any case, I do think that the likelihood of her havingcardiac arrhythmias with structural heart disease accounting for her symptoms is extremely remote. I have recommended compression stockings, as well as abdominal bands when I saw her last time. We also discussed the importance of keeping herself well hydrated and taking her time to change posture.Unfortunately, she continues to have similar symptoms. She had to go home after being work for just45 minutes, as she was feeling very dizzy when standing. When she came to our office today her initial blood pressure was 76/60 on sitting. I remeasured her again with her sitting down. I got a number of 82/52. When I stood her up her systolic blood pressure dropped to 60, with immeasurable diastolic pressures. Heart sounds are normal and chest is clear. She has absolutely no edema whatsoever. Review of systems is essentially negative. She does not have severe nausea or vomiting. PAST HISTORY Past Medical Illnesses: diabetic retinopathy, diabetes mellitus- insulin dependent, peripheral neuropathy, hypotension, PVD, hypercholesterolemia Cardiology Procedures-NonInvasive: myocardial perfusion (Nuc) Oct 2005, Dec 2009, echocardiogram Jan 2007 Left Ventricular Ejection Fraction: EF<GT>55% by nuclear study -Dec 2009 Nuclear Results: 12/2009 no ischemia or infarct FAMILY HISTORY: Father - hypertension; Mother - Age 67, septic shock; SOCIAL HISTORY Alcohol Use - does not use alcohol; Smoking - does not smoke; Diet - regular diet; Lifestyle - and children; Exercise - snap fitness, active lifestyle; Seat Belt Use - always; 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 EYES extra stem vessels, receiving treatments EARS, NOSE, THROAT, MOUTH denies any hearing loss, epistaxis, hoarseness or difficulty speaking. RESPIRATORY dyspnea, with syncope episodes, bands are not helping CARDIOVASCULAR syncope episodes for the past 6 [...] disorders. PHYSICAL EXAMINATION VITAL SIGNS: Blood Pressure: 76/60Sitting, Left arm, regular cuff Pulse- 88.00/min. Weight- 132.60 lbs. Height- 66.00 Temperature- .00 CONSTITUTIONAL cooperative, [...] time, person and place. MEDICATIONS UPDATED/STARTED TODAY: fludrocortisone 0.1 mg Tablet, 1 p.o. daily, #30 (Thirty) midodrine 2.5 mg Tablet, 1 p.o. three times daily, #90 (Ninety) IMPRESSIONS/PLAN This is a lady with severe orthostatic hypotension from diabetic autonomic neuropathy. I do not believe she has any structural heart disease. If simple physical measures are not working then it is time for me to prescribe Florinef, as well as midodrine. I will start her off at low doses. I advised her about possible side effects with these medications. She will keep a closer eye on herdiabetes control. I think the best place for her to seek further treatment would be the [facility] at the [facility]. I gave her their number. I also offered her a followup with one of our electrophysiologists. TODAYS ORDERS 1. Return Visit 1 month Sagar Henry M.D. documented in this encounter Plan of Treatment Upcoming Encounters Date Type Department Care Team (Late st Contact Info) Description 10/25/2024 10:00 AM CDT Virtual Visit [facility] [address] [place] [address] Edith Brito 10/26/2024 8:30 AM CDT Lab [facility] Medical Ctr [facility] [address] [place] [phone] Conrado Evans MD 717 [facility] 353 [facility] 1932 [place] [address] documented as of this encounter Visit Diagnoses [...] Out COVID-19 04/19/2020 04/19/2020 04/19/2020 1:56 PM RUBBER CUTTING MACHINE TENDER Rule Out COVID-19 04/19/2020 04/20/2020 04/20/2020 6:34 AM RUBBER CUTTING MACHINE TENDER Rule Out COVID-19 12/15/2020 12/15/2020 12/15/2020 4:33 PM CDT Rule Out C-difficile 01/06/2021 01/08/2021 021 11:43 AM RUBBER CUTTING MACHINE TENDER Rule Out C-difficile 07/10/2021 07/10/2021 022 5:56 PM CDT Rule Out C-difficile 07/16/2023 07/16/2023 024 9:21 PM CDT Rule Out Parvovirus 07/16/2023 07/16/2023 07/19/19 24 12:29 PM CDT Parvovirus 07/16/2023 07/16/2023 10/03/2024 4:22 PM CDT [id number] Comment:This patient was exposed to a person with a known CP-CONTRACT DESIGNER and has the potential for having acquired this pathogen of concern. The [place] Department of [facility] ([facility]) and CDC recommend that we screen this patient to prevent the spread of these organisms within our healthcare facility. Infection Prevention has placed orders for collecting a rectal swab for CP-CONTRACT DESIGNER to evaluate if this patient is now a carrier. This patient was identified to have a low risk exposure in which case Contact Precautions are not necessary unless the patient tests positive. Screening is voluntary. Please notify Infection Prevention if the patient declines testing. Additional information and resources can be found on the Infection Prevention MDRO Sharepoint page. 08/04/2023 08/04/2023 02/02/2024 11:39 PM RUBBER CUTTING MACHINE TENDER Rule Out Parvovirus 09/28/2023 09/28/2023 10/05/19 24 11:41 PM CDT documented as of this encounter Care Teams Ecological Technical Officer Relationship Specialty Start Date End Date Mayte Davis MD [facility] [address] [place] [address] PCP - General Family Practice 10/9/11 Berna Kruse MD [facility] [address] [place] [address] Nephrology 07/15/12 05/25/14 Maya Hines, RN Registered Nurse Transplant 07/15/12 07/15/12 Roxanna Armas, RN Registered Nurse Transplant 07/15/12 05/25/14 Irish Kim RN Registered Nurse Transplant 05/26/14 09/20/14 Chana Cheng MD [facility] [address] [place] [address] Nephrology 05/26/14 11/12/15 Anoop Garcia MD [facility] [address] [place] [address] Transplant 05/26/14 02/02/18 Barbara Carlson MD [address] [place] [phone] Referring Physician Nephrology 08/30/14 11/12/15 Tayo Lacey MD [address] [place] [phone] Cardiology 08/30/14 Basil Plummer MD [address] [place] [address] 260785 Neurology 05/09/15 04/23/16 Charleen Lynne MD [address] [place] [address] [id number] MD Oncology 06/14/15 12/19/18 Olimpia Williamson, RN Nurse Coordinator Oncology 06/14/15 04/23/16 Rin Dewitt RN Nurse Coordinator Neurology 07/24/15 04/23/16 Rin Dewitt RN Nurse Coordinator Neurology 10/25/15 10/12/17 Qian Rodriguez MD 717 [facility] 353 [place], [place] [address] Nephrology 11/13/15 06/16/16 Sherri Kingston PA 420 [facility] 394 [place], [place] 3[address] Physician National Account Manager Physician National Account Manager 03/20/16 Olimipa Williamson, RN Nurse Coordinator Oncology 06/26/16 06/26/16 Olimpia Williamson, RN Nurse Coordinator Oncology 06/26/16 06/16/18 Christopher Quiroga MD [facility] [address] [place], [place] [address] MD Oncology 07/02/16 Claudia Yousif, RN Nurse Coordinator Gastroenterology 02/09/17 09/16/22 Lance Simpson PA-C [address]09 [place], [place] [phone] Physician National Account Manager Physician National Account Manager 01/07/18 Olimpia Williamson, RN Specialty Tool Inspector Hematology & Oncology 05/06/18 12/19/18 Sherri Kingston PA [address] [place] [address] Physician National Account Manager Physician National Account Manager 12/21/18 Delvin Bob MD [address] [place] [address] 250 [place] [address] Internal Medicine 11/11/19 Charleen Lynne MD [address] [place] [address] [id number] Assigned Cancer Care Provider 12/23/19 03/23/21 Shakira Chapa MD [facility] IN [place] OF 06/29/2020 Assigned Surgical Provider 12/23/19 07/14/20 Zoltan Eric DPM [address] [facility] [address] [place], [place] [address] Assigned Musculoskeletal Provider 12/23/19 07/26/21 Delvin Bob MD [address] [place] [address] 250 [place], [place] 0499[address] Assigned PCP 12/08/19 02/14/22 Maximo Mtahis DO [address] [place] [address] 600265 Assigned Neuroscience Provider 02/12/20 08/09/21 Sherri Kingston PA [address] [place] [address] 998865 Assigned Surgical Provider 07/15/20 10/06/20 Pedro Winchester MD [address] [place] [address] Assigned Heart and Vascular Provider 08/05/20 01/31/22 Shakira Chapa MD [place] [place] OF 06/29/2020 Assigned Surgical Provider 10/07/20 10/13/20 Jovanni Dempsey MD 600 [place], [place] [id number] Assigned Nephrology Provider 03/24/21 03/14/22 Jovanni Dempsey MD 600 [place], [place] [phone] Assigned Nephrology Provider 03/15/22 03/21/22 Len Hooks MD [facility] 353 [place], [place] [phone] Assigned Nephrology Provider 03/22/22 12/26/22 Delvin Bob MD [address] [place] [facility] 250 [place], [place] 8[address] Assigned PCP 04/26/22 12/12/22 Love Hernandez PA-C [address] [place] [address] Physician National Account Manager Urology 12/01/22 Conrado Evans MD [address] [facility] 353 [facility] [address] [place], [place] [phone] Assigned Nephrology Provider 12/27/22 06/21/24 Love Hernandez PA-C 6363 [facility] 500 [place] [address] Assigned Surgical Provider 01/17/23 [place] [address] [address] [address] Assigned Gastroenterology Provider 07/23/23 Everardo Grant MD [address] [place] [address] Physician Infectious Diseases 09/23/23 Rey Billings MD [address] [place] [address] Assigned Infectious Disease Provider 10/23/23 Conrado Evans MD [address] [place] [address] 353 [facility] 1932 [place] [address] Nephrology 08/25/24 Delvin Lopez MD [address] [place] [address] 064515 Nephrology 08/25/24 Carissa Putnam RN [facility] 7[address] [place] [address] Specialty Tool Inspector Pharmacy 10/10/24 10/10/24 documented as of this encounter
--- OUTSIDE RECORDS SUMMARY | 2024-10-13 08:58 | XMS_ITS | Encounter Summary ---
Author Organization [facility] Address [address] [place] [address] Care Team Providers Care Plasterer Stucco Name Role Phone Robert Marley MD Primary Care Provider [phone] Tayo Lacey MD Unavailable [phone] Christopher Quiroga MD Unavailable Claudia Yousif RN Unavailable Lance SimpsonC Unavailable [phone] Sherri Kingston Unavailable [phone] Delvin Bob MD Unavailable [phone] Charleen Lynne MD Unavailable [phone] Shakira Chapa MD Unavailable Unav ailable Zoltan Eric DPM Unavailable [phone] Delvin Bob MD Unavailable [phone] Maximo Mathis DO Unavailable + Sherri Kingston Unavailable [phone] Pedro Winchester MD Unavailable [phone] Shakira Chapa MD Unavailable Unav ailable Jovanni Dempsey MD Unavailable [phone] Jovanni Dempsey MD Unavailable [phone] Len Hooks MD Unavailable Delvin Bob MD Unavailable Love Hernandez PA-C Unavailable [phone] Conrado Evans MD Unavailable [phone] Love Hernandez PA-C Unavailable [phone] Gordy Nickerson MD Unavailable [phone] Everardo Grant MD Unavailable Rey Billings MD Unavailable [phone] Conrado Evans MD Unavailable [phone] Delvin Lopez MD Unavailable [phone] Carissa Putnam RN Unavailable [phone] Encounter Details Date Type Department Care Team (Late Contact Info) Description 07/19/[address] 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 No / Unsure 07/18/2019 9:00 AM CDT documented as of this encounter Plan of Treatment Upcoming Encounters Date Type Department Care Team (Late Contact Info) Description 10/25/2024 10:00 AM CDT Virtual Visit 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 Meena Torres [facility] Infection Prevention 07/11/2019 at 3:56 PM 07/11/2019 07/11/2019 09/23/2019 10:03 AM CDT Rule Out COVID-19 07/24/2019 07/24/2019 07/25/2019 5:33 AM CDT 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, 15 urine 09/23/2019 09/23/2019 0903/2019 11:12 AM CDT Rule Out COVID-19 09/27/2019 09/27/2019 09/27/2019 3:20 PM CDT VRE-Standard Precautions 11/01/2019 11/01/2019 5:40 PM CDT 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, 06/03/15 urine 12/26/2019 12/26/2019 Rule Out COVID-19 04/19/2020 04/19/2020 04/19/2020 1:56 PM APPARATUS ENGINEERING TECHNOLOGIST Rule Out COVID-19 04/19/2020 04/20/2020 04/20/2020 6:34 AM APPARATUS ENGINEERING TECHNOLOGIST Rule Out COVID-19 12/15/2020 12/15/2020 12/15/2020 4:33 PM CDT Rule Out C-difficile 01/06/2021 01/08/2021 021 11:43 AM APPARATUS ENGINEERING TECHNOLOGIST Rule Out C-difficile 07/10/2021 07/10/2021 022 5:56 PM CDT Rule Out C-difficile 07/16/2023 07/16/2023 024 9:21 PM CDT Rule Out Parvovirus 07/16/2023 07/16/2023 07/19/19 24 12:29 PM CDT Parvovirus 07/16/2023 07/16/2023 10/03/2024 4:22 PM CDT [id number] Comment:This patient was exposed to a person with a known CP-CREPE SOLE SCOURER and has the potential for having acquired this pathogen of concern. The [facility]) and CDC recommend that we screen this patient to prevent the spread of these organisms within our healthcare facility. Infection Prevention has placed orders for collecting a rectal swab for CP-CREPE SOLE SCOURER to evaluate if this patient is now a carrier. This patient was identified to have a low risk exposure in which case Contact Precautions are not necessary unless the patient tests positive. Screening is voluntary. Please notify Infection Prevention if the patient declines testing. Additional information and resources can be found on the Infection Prevention MDRO Sharepoint page. 08/04/2023 08/04/2023 02/02/2024 11:39 PM APPARATUS ENGINEERING TECHNOLOGIST Rule Out Parvovirus 09/28/2023 09/28/2023 10/05/19 24 11:41 PM CDT Assessment Noted Time PHQ-9 Depression Total Score: 11 020 2:07 PM APPARATUS ENGINEERING TECHNOLOGIST documented as of this encounter Care Teams Plasterer Stucco Relationship Specialty Start Date End Date oRbert Marley MD [facility] [id number] [place] [address] PCP - General Family Practice 12/08/10 Tayo Lacey MD [facility] [address] [place] [address] Cardiology 08/30/14 Christopher Quiroga MD [facility] [address] [place] [address] Oncology 07/02/16 Claudia Yousif, RN Nurse Coordinator Gastroenterology 02/09/17 09/16/22 Lance Simpson PA-C 9 [place], [place] [address]155 Physician Uptwister Tender Physician Uptwister Tender 01/07/18 Sherri Kingston PA [address] [place] [address] [place], [place] 308155 Physician Uptwister Tender Physician Uptwister Tender 12/21/18 Delvin Bob MD [address] [place] [address] Internal Medicine 11/11/19 Charleen Lynne MD [address] [place] [address] 077275 Assigned Cancer Care Provider 12/23/19 03/23/21 Shakira Chapa MD [place]CTIVE IN [place] OF 06/29/2020 Assigned Surgical Provider 12/23/19 Zoltan Eric DPM [address] [facility] [address] [place] [address] Assigned Musculoskeletal Provider 12/23/19 07/26/21 Delvin Bob MD [address] [place] [address] 590805 Assigned PCP 12/08/19 02/14/22 Maximo Mathis DO 909 [place], [place] [address]995 Assigned Neuroscience Provider 02/12/20 08/09/21 Sherri Kingston PA 909 [facility] [place], [place] 089035 Assigned Surgical Provider 07/15/2010/06/20 Pedro Winchester MD 6405 [place] [address] Assigned Heart and Vascular Provider 08/05/20 01/31/22 Shakira Chapa MD [place]IVE IN [place] OF 06/29/2020 Assigned Surgical Provider 10/07/20 Jovanni Dempsey MD 600 [place], [place] 207192 Assigned Nephrology Provider 03/24/21 03/14/22 Jovanni Dempsey MD 600 [place] [address] Assigned Nephrology Provider 03/15/22 03/21/22 Len Hooks MD [address] [facility] [address] [place] [address] Assigned Nephrology Provider 03/22/22 12/26/22 Delvin Bob MD 420 [facility] 250 [place] [address] Assigned PCP 04/26/22 12/12/22 Love Hernandez PA-C 6363 [facility] 500 [place], [place] [address] Physician Uptwister Tender Urology 12/01/22 Conrado Evans MD 717 [facility] 353 [facility] [address] [place], [place] 180404 Assigned Nephrology Provider 12/27/22 06/21/24 Love Hernandez PA-C 6363 [facility] 500 [place] [address] Assigned Surgical Provider 01/17/23 [place] [address] [address] [place], [place] 708089 Assigned Gastroenterology Provider 07/23/23 Everardo Grant MD [address] [place] [address] [phone] Physician Infectious Diseases 09/23/23 Rey Billings MD [address] [place] [address] 533975 Assigned Infectious Disease Provider 10/23/23 Conrado Evans MD 717 [facility] 353 [facility] [address] [place], [place] [address] Nephrology 08/25/24 Delvin Lopez MD [address] [place] [address] 362875 Nephrology 08/25/24 Carissa Putnam, RN [facility] [address] [place] [address] [phone] Specialty Regulatory Coordinator Pharmacy 10/10/24 documented as of this encounter
--- OUTSIDE RECORDS SUMMARY | 2024-10-13 08:58 | XMS_ITS | Encounter Summary ---
Author Organization [facility] Address [address] [place] [address] Care Team Providers Care Machine Long Goods Helper Name Role Phone Robert Marley MD Primary Care Provider [phone] Tayo Lacey MD Unavailable [phone] Christopher Quiroga MD Unavailable Lance Simpson-C Unavailable Sherri Kingston Unavailable [phone] Delvin Bob MD Unavailable [phone] Love Hernandez-C Unavailable Love Hernandez-C Unavailable Gordy Nickerson MD Unavailable [phone] Everardo Grant MD Unavailable Rey Billings MD Unavailable [phone] Conrado Evans MD Unavailable [phone] Delvin Lopez MD Unavailable [phone] Reason for Visit * Reason Comments Medication Refill Encounter Details Date Type Department Care Team (Late st Contact Info) Description 10/04/2024 Refill [facility] [address] [place] [address] Conrado Evans MD [address] [place] [address] 353 [facility] [address] [place] [address] Medication Refill Social History Tobacco Use Types [...] on file 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 Gender Identity Not on file Sexual [...] [facility] [address] [place] [address] Edith Brito 10/26/2024 8:30 AM CDT Lab [facility] [address] [place] [phone] Conrado Evans MD [address] [place] [address] 353 [facility] [address] [place] [address] documented as of this encounter Visit Diagnoses Diagnosis 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 documented in this encounter Additional Health Concerns 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, 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 Assessment Noted Time PHQ-9 Depression Total Score: 18 023 10:27 AM ENVIRONMENTAL COMPLIANCE ENGINEER documented as of this encounter Care Teams Machine Long Goods Helper Relationship Specialty Start Date End Date Robert Marley MD [facility] [address] [place] [address] PCP - General Family Practice 12/08/10 Tayo Lacey MD [facility] [address] [place] [address] Cardiology 08/30/14 Christopher Quiroga MD [facility] [address] [facility] 200 [place] [address] Oncology 07/02/16 Lance Simpson PA-C [address] [place] [address] 798335 Physician Aluminum Container Tester Physician Aluminum Container Tester 01/07/18 Sherri Kingston PA [address] [place] [address] Urology [place], [place] 517475 Physician Aluminum Container Tester Physician Aluminum Container Tester 12/21/18 Delvin Bob MD [address] [place] [address] 250 [place] [address] Internal Medicine 11/11/19 Love Hernandez PA-C [address] [address] Physician Aluminum Container Tester Urology 12/01/22 Love Hernandez PA-C 6363 [facility] 500 [place] [address] Assigned Surgical Provider 01/17/23 [place] [address] [place] [address] Assigned Gastroenterology Provider 07/23/23 Everardo Grant MD [address] [place] [address] 331215 Physician Infectious Diseases 09/23/23 Rey Billings MD [address] [place] [address] 067305 Assigned Infectious Disease Provider 10/23/23 Conrado Evans MD [address] [place] [address] 353 [facility] [address] [place] [address] Nephrology 08/25/24 Delvin Lopez MD [address] [place] [address] 881745 Nephrology 08/25/24 documented as of this encounter
--- OUTSIDE RECORDS SUMMARY | 2024-10-13 08:58 | XMS_ITS | Encounter Summary ---
Author Organization [facility] Address [address] [place] [address] Care Team Providers Care Superintendent Generating Plant Name Role Phone Robert Marley MD Primary Care Provider [phone] Tayo Lacey MD Unavailable [phone] Christopher Quiroga MD Unavailable Lance Simpson PA-C Unavailable [phone] Sherri Kingston Unavailable [phone] Delvin Bob MD Unavailable [phone] Love Hernandez-C Unavailable [phone] Love Hernandez-C Unavailable Gordy Nickerson MD Unavailable Everardo Grant MD Unavailable Rey Billings MD Unavailable [phone] Conrado Evans MD Unavailable [phone] Delvin Lopez MD Unavailable [phone] Reason for Visit * Reason Onset Date Comments pt call 09/23/2024 Encounter Details Date Type Department Care Team (Late st Contact Info) Description 09/23/2024 Telephone [facility] [address] [place] [address] Susan Pelletier, RN pt call Social History Tobacco Use Types Packs/Day Years [...] on file 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 Discussed with patient. * Telephone Encounter - Pao Oswald - 09/23/2024 11:38 AM CDT Pt wants to review her labs from 09/19 with Susan documented in this encounter Plan of Treatment Upcoming Encounters Date Type Department Care Team (Late st Contact Info) Description 10/25/2024 10:00 AM CDT Virtual Visit [facility] [address] [place] [address] Edith Brito 10/26/2024 8:30 AM CDT Lab [facility] [address] [place] [address] [place] [phone] Conrado Evans MD [address] [place] [address] 353 [facility] [address] [place] [address] documented as of this encounter Visit Diagnoses Diagnosis EBV (Patrick-Cole virus) viremia Infectious mononucleosis documented in this encounter Additional Health Concerns 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, 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 Parvovirus 07/16/2023 07/16/2023 10/03/2024 4:22 PM CDT Assessment Noted Time PHQ-9 Depression Total Score: 18 023 10:27 AM LIABILITY CLAIMS ADJUSTER documented as of this encounter Care Teams Superintendent Generating Plant Relationship Specialty Start Date End Date Robert Marley MD [facility] [address] [place] [address] PCP - General Family Practice 12/08/10 Tayo Lacey MD [facility] [address] [place] [address] Cardiology 08/30/14 Christopher Quiroga MD [facility] 675 [facility] 200 [place] [address] Oncology 07/02/16 Lance Simpson PAJosseC [address] [place] [address] 295095 Physician Head Men'S Tennis Coach Physician Head Men'S Tennis Coach 01/07/18 Sherri Kingston PA [address] [place] [address] Urology [place], [place] 762435 Physician Head Men'S Tennis Coach Physician Head Men'S Tennis Coach 12/21/18 Delvin Bob MD [address] [place] [address] 250 [place], [place] 55[address] Internal Medicine 11/11/19 Love Hernandez PA-C [address] 742505 Physician Head Men'S Tennis Coach Urology 12/01/22 Love Hernandez PA-C 6363 [facility] 500 [place] [address] Assigned Surgical Provider 01/17/23 [place] [address], [place] [address] Assigned Gastroenterology Provider 07/23/23 Everardo Grant MD [address] [place] [address] 864385 Physician Infectious Diseases 09/23/23 Rey Billings MD [address] [place] [address] Assigned Infectious Disease Provider 10/23/23 Conrado Evans MD [address] [place] [address] 353 [facility] [address] [place] [address] Nephrology 08/25/24 Delvin Lopez MD [address] [place] [address]135 Nephrology 08/25/24 documented as of this encounter
--- OUTSIDE RECORDS SUMMARY | 2024-10-13 08:58 | XMS_ITS | Encounter Summary ---
Author Organization [facility] Address [address] [place] [address] Care Team Providers Care Surface Plate Finisher Name Role Phone Robert Marley MD Primary Care Provider [phone] Tayo Lacey MD Unavailable [phone] Christopher Quiroga MD Unavailable Lance Simpson-C Unavailable [phone] Sherri Kingston Unavailable [phone] Delvin Bob MD Unavailable [phone] Love HernandezC Unavailable [phone] Love Hernandez-C Unavailable Gordy Nickerson MD Unavailable Everardo Grant MD Unavailable Rey Billings MD Unavailable [phone] Conrado Evans MD Unavailable [phone] Delvin Lopez MD Unavailable [phone] Reason for Referral * Therapeutic Imaging/IR (Priority: 1-2 Weeks) - Closed Specialty Diagnoses / Procedures Referred By Contac t Referred To Contact Radiology. Diagnoses Kidney replaced by transplant Aftercare following organ transplant Procedures IR Renal Biopsy Left IR Referral IR Referral Conrado Evans MD 717 [facility] 353 [facility] 1932 [place] [address] Phone: tel: fax: [facility] Interventional Radiology [address] [place] [address] Phone: tel: Referral ID Status Reason Start Date Expiration Date Visits Re quested Visits Authorized [id number] Closed 09/23/2024 09/23/2025 1 1 Encounter Details Date Type Department Care Team (Late Contact Info) Description 09/23/2024 Orders Only [facility] [address] [place] [address] Susan Pelletier RN Aftercare following organ transplant (Primary Dx); EBV (Patrick-Cole virus) viremia; Kidney replaced by transplant Social History Tobacco Use Types Packs/Day Years [...] on file 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 Gender Identity Not on file Sexual Orientation Not on file Occupation Industry Job Start Date Job End Date Not on file Not on file Not on file Not on file documented as of this encounter Plan of Treatment Upcoming Encounters Date Type Department Care Team (Late Contact Info) Description 10/25/2024 10:00 AM CDT Virtual Visit [facility] [address] [place] [address] Edith Brito 10/26/2024 8:30 AM CDT Lab [facility] [address] [place] [address] Conrado Evans MD 717 [facility] 353 [facility] [address] [place] [address] documented as of this encounter Results * IR Renal Biopsy Left (10/04/2024 10:37 [...] IR staff supervision. SEDATION TIME: 10 minutes [id number] DESCRIPTION: The patient's low abdomen was prepped [...] Transplant kidney biopsy requested. PERFORMED BY: Gilberto Nicoel PA-C CONSENT: Written informed consent was obtained [...] IR staff supervision. 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, 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 Parvovirus 07/16/2023 07/16/2023 10/03/2024 4:22 PM CDT Assessment Noted Time PHQ-9 Depression Total Score: 18 023 10:27 AM PAINTER TUMBLING BARREL documented as of this encounter Care Teams Surface Plate Finisher Relationship Specialty Start Date End Date Robert Marley MD [facility] [address] [place] [address] PCP - General Family Practice 12/08/10 Tayo Lacey MD [facility] [address] [place] [address] Cardiology 08/30/14 Christopher Quiroga MD [facility] [address] [facility] 200 [place] [address] Oncology 07/02/16 Lance Simpson PA-C 9 [place], [place] 150275 Physician Drawer Liner Physician Drawer Liner 01/07/18 Sherri Kingston PA [address] [place] [address] Urology [place], [place] 537[address] Physician Drawer Liner Physician Drawer Liner 12/21/18 Delvin Bob MD [address] [place] [address] 250 [place] [address] Internal Medicine 11/11/19 Love Hernandez PA-C [address] [place] [address] Physician Drawer Liner Urology 12/01/22 Love Hernandez PA-C [address] [facility] [address] 500 [place] [address] Assigned Surgical Provider 01/17/23 [place] [address] [place] [address] Assigned Gastroenterology Provider 07/23/23 Everardo Grant MD [address] [place] [address] Physician Infectious Diseases 09/23/23 Rey Billings MD [address] [place] [address] 902105 Assigned Infectious Disease Provider 10/23/23 Conrado Evans MD [address] [place] [address] 353 [facility] [address] [place] [address] Nephrology 08/25/24 Delvin Lopez MD [address] [place] [address]805 Nephrology 08/25/24 documented as of this encounter
--- OUTSIDE RECORDS SUMMARY | 2024-10-13 08:58 | XMS_ITS | Encounter Summary ---
Author Organization [facility] Address [address] [place] [address] Care Team Providers Care Scratcher Tender Name Role Phone Elsewhere, Pcp Primary Care Provider Unavailabl e Encounter Details Date Type Department Care Team (Late st Contact Info) Description 12/15/2011 Historical Ophthalmology [facility] O[facility] Marietta Hernandez M.D. Social History Tobacco Use Types Packs/Day Years Used Date Smoking Tobacco: Never Assessed Comments Unknown Sex and Gender Information Value Date Recorded Sex Assigned at Not on file Legal Sex Female 2:39 PM SATURATOR TENDER Gender Identity Not on file Sexual Orientation Not on file documented as of this encounter Progress Notes * Marietta Hernandez M.D. - 12/15/2011 11:22 AM CDT Eye General CHIEF COMPLAINT Both eyes changes in vision. HISTORY OF PRESENT ILLNESS Mrs. Monzon is a 45 yo female with a type I diabetes syndrome, chronic anemia, autonomic neuropathy with orthostatic hypotension, supine hypertension. She was Originally admitted to the hospital out ofconcern for angioedema caused by her TATIANA inhibitor, now she is being admitted to the MICU for altered mental status and hyperkalemia. She had been doing well until approximately 4:30 this morning when a nurse found her unresponsive. She was noted to have an elevated glucose of 568 so 6 units of Aspart were given. She continued to have difficulty breathing. Narcan was given which improved her alertness. She states that the visual field changes are in her left eye and are intermittent. She has noticed them for several days. States that they are more like floaters rather than a 'curtain'. Left eye sees lines floating around. She had these before and had surgery to stop the bleeding from diabetes. This is also a lazy eye. The right eye vision got real cloudy, again. This came on about 1.5 months ago. She has an appointment with her eye doctor on the but things are getting worse. JAL: Floaters which she's had prior to the retinal surgery she had in the summer. She noticed foggy vision (like looking through smog) and floaters (like tiger stripes) in the left eye for the past 2 months. She has the feeling of a shade being pulled across both eyes. No outside eye records available to me. Sees Dr. Lizama at [facility] IMPRESSION / REPORT / PLAN Consult requested by: Jonelle Nair [id number] #1 Proliferative diabetic retinopathy both eyes, s/p panretinal photocoagulation both eyes. Plan: observe. #2 Vitreous hemorrhage left eye, secondary to #1. Plan: F/up with her regular retina specialist Dr. Lizama at home. #3 Corneal surface disease left eye. Plan: Artificial tears QID and prn OS. Called Med 6 service and they will get her started on the drops. DIAGNOSIS #1 Proliferative diabetic retinopathy both eyes, s/p panretinal photocoagulation both eyes. #2 Vitreous hemorrhage left eye, secondary to #1. #3 Corneal surface disease left eye. CDM Reports - EYEGEN Id: [id number] Status: Fnl documented in this encounter Plan of Treatment Not on file documented as of this encounter Visit Diagnoses Not on filedocumented in this encounter Care Teams Scratcher Tender Relationship Specialty Start Date End Date Elsewhere, Pcp PCP - General 05/04/20 documented as of this encounter
--- OUTSIDE RECORDS SUMMARY | 2024-10-13 08:58 | XMS_ITS | Encounter Summary ---
Author Organization [facility] Address [address] [place] [address] Care Team Providers Care Family Support Coordinator Name Role Phone Robert Marley MD Primary Care Provider [phone] Tayo Lacey MD Unavailable [phone] Christopher Quiroga MD Unavailable Lance Simpson-C Unavailable Sherri Kingston Unavailable [phone] Delvin Bob MD Unavailable Love HernandezC Unavailable [phone] Conrado Evans MD Unavailable [phone] Love Hernandez-C Unavailable Gordy Nickerson MD Unavailable Everardo Grant MD Unavailable Rey Billings MD Unavailable [phone] Conrado Evans MD Unavailable [phone] Delvin Lopez MD Unavailable [phone] Carissa Putnam RN Unavailable [phone] Encounter Details Date Type Department Care Team (Late st Contact Info) Description 12/25/2023 [facility] [address] [place] [address] Brenda Fritz Kerry EBV (Patrick-Cole virus) viremia Social History Tobacco [...] on file Legal Sex Female 3:26 AM DATA MANAGEMENT CONSULTANT Gender Identity Not on file Sexual Orientation Not on file Occupation Industry Job Start Date Job End Date Not on file Not on file Not on file Not on file documented as of this encounter Plan of Treatment Upcoming Encounters Date Type Department Care Team (Late st Contact Info) Description 10/25/2024 10:00 AM CDT Virtual Visit [facility] [address] [place] [address] Edith Brito 10/26/2024 8:30 AM CDT Lab [facility] [address] [facility] 200 [place] [address] Conrado Evans MD 717 [facility] 353 [facility] [address] [place] [address] documented as of this encounter Visit Diagnoses Diagnosis EBV (Patrick-Cole virus) viremia Infectious mononucleosis documented in this encounter Additional Health Concerns 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 The [place] Department of Health ([facility]) and CDC recommend that we screen this patient to prevent the spread of these organisms within our healthcare facility. Infection Prevention has placed orders for collecting a rectal swab for CP-STOCK SHAPER to evaluate if this patient is now a carrier. This patient was identified to have a low risk exposure in which case Contact Precautions are not necessary unless the patient tests positive. Screening is voluntary. Please notify Infection Prevention if the patient declines testing. Additional information and resources can be found on the Infection Prevention [employer] Sharepoint page. 08/04/2023 08/04/2023 02/02/2024 11:39 PM DATA MANAGEMENT CONSULTANT Assessment Noted Time PHQ-9 Depression Total Score: 18 023 10:27 AM DATA MANAGEMENT CONSULTANT documented as of this encounter Care Teams Family Support Coordinator Relationship Specialty Start Date End Date Robert Marley MD [facility] [address] [place] [address] PCP - General Family Practice 12/08/10 Tayo Lacey MD [facility] [address] [place] [address] Cardiology 08/30/14 Christopher Quiroga MD [facility] [address] [facility] 200 [place] [address] Oncology 07/02/16 Lance Simpson PA-C 909 [place], [place] 539055 Physician Earrings Fabricator Physician Earrings Fabricator 01/07/18 Sherri Kingston PA [address] [place] [address] Urology [place], [place] 213635 Physician Earrings Fabricator Physician Earrings Fabricator 12/21/18 Delvin Bob MD [address] [place] [address] 250 [place] [address] Internal Medicine 11/11/19 Love Hernandez PA-C [address] [facility] [address] [place], [place] [address] Physician Earrings Fabricator Urology 12/01/22 Conrado Evans MD [address] [place] [address] Assigned Nephrology Provider 12/27/22 06/21/24 Love Hernandez PA-C [address] [place], [place] 6650[address] Assigned Surgical Provider 01/17/23 [place] [address] [place], [place] [address] Assigned Gastroenterology Provider 07/23/23 Everardo Grant MD [address] [place] [address] 970115 Physician Infectious Diseases 09/23/23 Rey Billings MD [address] [place] [address] 566265 Assigned Infectious Disease Provider 10/23/23 Conrado Evans MD [address] [place] [address] [address] [place] [address] Nephrology 08/25/24 Delvin Lopez MD [address] [place] [address] 272595 Nephrology 08/25/24 Walker, Carissa L, RN [facility] [address] [facility] [place] [address] [facility]ty [facility] 10/10/24 documented as of this encounter
--- OUTSIDE RECORDS SUMMARY | 2024-10-13 08:58 | XMS_ITS | Encounter Summary ---
Author Organization [facility] Address [address] [place] [address] Care Team Providers Care Engineering Project Designer Name Role Phone Robert Marley MD Primary Care Provider [phone] Tayo Lacey MD Unavailable [phone] Christopher Quiroga MD Unavailable Lance Simpson-C Unavailable Sherri Kingston Unavailable [phone] Delvin Bob MD Unavailable [phone] Love Hernandez-C Unavailable Love Hernandez-C Unavailable [phone] Gordy Nickerson MD Unavailable [phone] Everardo Grant MD Unavailable Rey Billings MD Unavailable [phone] Conrado Evans MD Unavailable [phone] Delvin Lopez MD Unavailable [phone] Encounter Details Date Type Department Care Team (Late st Contact Info) Description 09/23/2024 [facility] Only [facility] Interventional Radiology [address] [place] [address] Katie Atkinson PA-C [address] [facility] [address] [place] [address] Social History Tobacco Use Types Packs/Day Years [...] on file Legal Sex Female 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 Gender Identity Not on file Sexual Orientation Not on file Occupation Industry Job Start Date Job End Date Not on file Not on file Not on file Not on file documented as of this encounter Plan of Treatment Upcoming Encounters Date Type Department Care Team (Late st Contact Info) Description 10/25/2024 10:00 AM CDT Virtual Visit [facility] [address] [place] [address] Edith Brito 10/26/2024 8:30 AM CDT Lab [facility] Ctr [facility] [address] [facility] 200 [place] [phone] Conrado Evans MD 717 [facility] 353 [facility] 1932 [place] [address] documented as of this encounter Visit Diagnoses Not on filedocumented in this encounter Additional Health Concerns 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, 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 Parvovirus 07/16/2023 07/16/2023 10/03/2024 4:22 PM CDT Assessment Noted Time PHQ-9 Depression Total Score: 18 023 10:27 AM A P SUPERVISOR documented as of this encounter Care Teams Engineering Project Designer Relationship Specialty Start Date End Date Robert Marley MD [address] [address] PCP - General Family Practice 12/08/10 Tayo Lacey MD [facility] [address] [place] [address] [id number] Cardiology 08/30/14 Christopher Quiroga MD [facility] [address] [place], [place] [address] Oncology 07/02/16 Lance Simpson PA-C 909 [place], [place] 741445 Physician Fingernail Former Physician Fingernail Former 01/07/18 Sherri Kingston PA [address] [place] [address] [place]rology [place], [place] 136125 Physician Fingernail Former Physician Fingernail Former 12/21/18 Delvin Bob MD [address] [place] [address] 250 [place], [place] 480965 Internal Medicine 11/11/19 Love Hernandez PA-C [address] [facility] [address] [place] 500 [place], [place] [address] Physician Fingernail Former Urology 12/01/22 Love Hernandez PA-C [address] 500 [place], [place] 805685 Assigned Surgical Provider 01/17/23 [place] [address] [place], [place] [address] Assigned Gastroenterology Provider 07/23/23 Everardo Grant MD 9 [place], [place] [address]45 Physician Infectious Diseases 09/23/23 Rey Billings MD [address] [place] [address] 042365 Assigned Infectious Disease Provider 10/23/23 Conrado Evans MD [address] [place] [address] [address] 353 [facility] 1932 [place], [place] [address] Nephrology 08/25/24 Delvin Lopez MD [address] [place] [address] 413755 Nephrology 08/25/24 documented as of this encounter
--- OUTSIDE RECORDS SUMMARY | 2024-10-13 08:58 | XMS_ITS | Encounter Summary ---
Author Organization [facility] Address [address] [place] [address] Care Team Providers Care Psychology Associate Name Role Phone Robert Marley MD Primary Care Provider Chana Cheng MD Unavailable [phone] Anoop Garcia MD Unavailable Unavailable Barbara Carlson MD Unavailable Tayo Lacey MD Unavailable [phone] TuBasil shaikh MD Unavailable Charleen Lynne MD Unavailable [phone] Olimpia Williamson RN Unavailable [phone] Rin Dewitt RN Unavailable [phone] Rin Dewitt RN Unavailable [phone] Qian Rodriguez MD Unavailable [phone] Sherri Kingston Unavailable [phone] Olimpia Williamson RN Unavailable [phone] Olimpia Williamson RN Unavailable [phone] Christopher Quiroga MD Unavailable Claudia Yousif RN Unavailable Lance Simpson PA-C Unavailable [phone] Olimpia Williamson RN Unavailable [phone] Sherri Kingston Unavailable Delvin Bob MD Unavailable [phone] Charleen Lynne MD Unavailable [phone] ChapaShakira zelaya MD Unavailable Unav ailable Zoltan Eric ADRIANKerry Unavailable [phone] Delvin Bob MD Unavailable [phone] Shante Mathisony Jaden LÓPEZ Unavailable + Sherri Kingston Unavailable [phone] Pedro Winchester MD Unavailable ChapaShakira zelaya MD Unavailable Unav ailable Jovanni Dempsey MD Unavailable [phone] Jovanni Dempsey MD Unavailable [phone] Len Hooks MD Unavailable Delvin Bob MD Unavailable Love Hernandez PA-C Unavailable Conrado Evans MD Unavailable [phone] Love Hernandez PA-C Unavailable [phone] Gordy Nickerson MD Unavailable Everardo Grant MD Unavailable Rey Billings MD Unavailable [phone] Conrado Evans MD Unavailable Delvin Lopez MD Unavailable [phone] Carissa Putnam RN Unavailable [phone] Encounter Details Date Type Department Care Team (Late st Contact Info) Description 04/26/2015 External Order Results [facility] Clinic 9 [place] [address] Social History Tobacco Use Types Packs/Day Years Used Date Smoking Tobacco: Former Smokeless Tobacco: Never Alcohol Use Standard Drinks/Week Comments No 0 (1 standard drink = 0.6 oz pur e alcohol) Comments No Sex and Gender Information Value Date Recorded Sex Assigned at Not on file Legal Sex Female 3:26 AM GIS SCIENTIST Gender Identity Not on file Sexual Orientation Not on file Occupation Industry Job Start Date Job End Date Not on file Not on file Not on file Not on file documented as of this encounter Plan of Treatment Upcoming Encounters Date Type Department Care Team (Late st Contact Info) Description 10/25/2024 10:00 AM CDT Virtual Visit [facility] [address] [place] [address] Edith Brito 10/26/2024 8:30 AM CDT Lab [facility] Medical Ctr [facility] [address] [place] [address] 200 [place] [phone] Conrado Evans MD 716 [facility] 353 [facility] 1932 [place], [place] [address] documented as of this encounter Procedures Procedure Name Priority Date/Time Associated Diagnosis Comments EXTERNAL LAB RESULTS Routine 04/25/2015 8:30 AM GIS SCIENTIST documented in this encounter Results * (ABNORMAL) TXP External Lab Result (04/25/2015 8:30 AM GIS SCIENTIST) Calcium (External) 9.1 8.4 - 10.6 MG/DL LABDE SCAN Urea Nitrogen (External) 28(H) 5 - 24 MG/DL LABDE SCAN Creatinine (External) 0.8 0.5 - 1.5 MG/DL LABDE SCAN Glucose (External) 89 60 - 115 mg/dL LABDE SCAN Sodium (External) 141 135 - 149 MMOL/L LABDE SCAN Potassium (External) 3.7 3.6 - 5.1 MMOL/L LABDE SCAN Chloride (External) 102 96 - 114 MMOL/L LABDE SCAN CO2 (External) 29 20 - 32 MMOL/L LABDE SCAN Amylase (External) 67(H) 18 - 59 U/L LABDE SCAN Lipase Level (External) 70(L) 123 - 300 U/L LABDE SCAN WBC Count (External) 6.64 5.00 - 10.00 LABDE SCAN RBC Count (External) 3.15 LABDE SCAN Hemoglobin (External) 9.7 LABDE SCAN Hematocrit (External) 30.7 LABDE SCAN MCV (External) 98 82 - 98 FL LABDE SCAN MCH (External) 31 27 - 34 PG LABDE SCAN MCHC (External) 32 LABDE SCAN Platelet Count (External) 264 LABDE SCAN % Neutrophils (External) 74.5(H) LABDE SCAN % Lymphocytes (External) 10.7(L) LABDE SCAN % Monocytes (External) 13.3(H) LABDE SCAN % Eosinophils (External) 0.5 LABDE SCAN % Basophils (External) 0.2 LABDE SCAN Absolute Neutrophils (External) 4.96 LABDE SCAN Absolute Lymphocytes (External) 0.71 LABDE SCAN Absolute Monocytes (External) 0.88 LABDE SCAN Absolute Eosinophils (External) 0.03 LABDE SCAN Absolute Basophils (External) 0.01 LABDE SCAN 04/25/2015 8:30 AM GIS SCIENTIST Narrative BOBBY PFT - 04/26/2015 3:39 PM GIS SCIENTIST Verified by Deb Walter on 04/26/2015. us Patient Reported LABORATORY Edited Result - [...] Out COVID-19 04/19/2020 04/19/2020 04/19/2020 1:56 PM GIS SCIENTIST Rule Out COVID-19 04/19/2020 04/20/2020 04/20/2020 6:34 AM GIS SCIENTIST Rule Out COVID-19 12/15/2020 12/15/2020 12/15/2020 4:33 PM CDT Rule Out C-difficile 01/06/2021 01/08/2021 021 11:43 AM GIS SCIENTIST Rule Out C-difficile 07/10/2021 07/10/2021 022 5:56 PM CDT Rule Out C-difficile 07/16/2023 07/16/2023 024 9:21 PM CDT Rule Out Parvovirus 07/16/2023 07/16/2023 07/19/19 24 12:29 PM CDT Parvovirus 07/16/2023 07/16/2023 10/03/2024 4:22 PM CDT [id number] Comment:This patient was exposed to a person with a known CP-FAST FOOD ATTENDANT and has the potential for having acquired this pathogen of concern. The [place] Department of Health ([facility]) and CDC recommend that we screen this patient to prevent the spread of these organisms within our healthcare facility. Infection Prevention has placed orders for collecting a rectal swab for CP-FAST FOOD ATTENDANT to evaluate if this patient is now a carrier. This patient was identified to have a low risk exposure in which case Contact Precautions are not necessary unless the patient tests positive. Screening is voluntary. Please notify Infection Prevention if the patient declines testing. Additional information and resources can be found on the Infection Prevention MDRO Sharepoint page. 08/04/2023 08/04/2023 02/02/2024 11:39 PM GIS SCIENTIST Rule Out Parvovirus 09/28/2023 09/28/2023 10/05/19 11:41 PM CDT documented as of this encounter Care Teams Psychology Associate Relationship Specialty Start Date End Date Robert Marley MD [facility] [id number] [place] [address] PCP - General Family Practice 12/08/10 Chana Cheng MD [facility] [address] [place] [address] Nephrology 05/26/14 11/12/15 Anoop Garcia MD [facility] [address] [place] [address] Transplant 05/26/14 02/02/18 Barbara Carlson MD [address] [place] [address] Referring Physician Nephrology 08/30/14 11/12/15 Tayo Lacey MD [address] [place] [address] Cardiology 08/30/14 Basil Plummer MD [address] [place] [address] Neurology 05/09/15 04/23/16 Charleen Lynne MD [address] [place] [address] 728025 Oncology 06/14/15 12/19/18 Olimpia Williamson, RN Nurse Coordinator Oncology 06/14/15 04/23/16 Rin Dewitt RN Nurse Coordinator Neurology 07/24/15 04/23/16 Rin Dewitt RN Nurse Coordinator Neurology 10/25/15 10/12/17 Qian Rodriguez MD 717 [facility] 353 [place] [address] Nephrology 11/13/15 06/16/16 Sherri Kingston PA 420 [facility] 394 [place] [address] Physician Vacuum Spindle Sander Physician Vacuum Spindle Sander 03/20/16 Olimpia Williamson, RN Nurse Coordinator Oncology 06/26/16 06/26/16 Olimpia Williamson, RN Nurse Coordinator Oncology 06/26/16 06/16/18 Christopher Quiroga MD [facility] [address] [place], [place] [address] Oncology 07/02/16 Claudia Yousif RN Nurse Coordinator Gastroenterology 02/09/17 09/16/22 Lance Simpson PA-C 909 [place] [address] Physician Vacuum Spindle Sander Physician Vacuum Spindle Sander 01/07/18 Olimpia Williamson, SONIA Specialty Pipeline Controller Hematology & Oncology 05/06/18 12/19/18 Sherri Kingston PA [address] [place] [address] [place] [address] Physician Vacuum Spindle Sander Physician Vacuum Spindle Sander 12/21/18 Delvin Bob MD [address] [place] [address] 542235 Internal Medicine 11/11/19 Charleen Lynne MD [address] [place] [address] 814175 Assigned Cancer Care Provider 12/23/19 03/23/21 Shakira Chapa MD INACTIVE IN [place] [facility] 06/29/2020 Assigned Surgical Provider 12/23/19 07/14/20 Zoltan Eric DPM [address] [facility] [address] [place] [address] Assigned Musculoskeletal Provider 12/23/19 07/26/21 Delvin Bob MD [address] [place] [address] 777295 Assigned PCP 12/08/19 02/14/22 Maximo Mathis DO [address] [place] [address] Assigned Neuroscience Provider 02/12/20 08/09/21 Sherri Kingston PA 909 [facility] Urology [place], [place] [address]46395 Assigned Surgical Provider 07/15/20 10/06/20 Pedro Winchester MD [address] [place] 278765 Assigned Heart and Vascular Provider 08/05/20 01/31/22 Shakira Chapa MD INACTIVE IN [facility] 06/29/2020 Assigned Surgical Provider 10/07/20 10/13/20 Jovanni Dempsey MD 600 [place], [place] 352992 Assigned Nephrology Provider 03/24/21 03/14/22 Jovanni Depmsey MD 600 [place], [place] 168332 Assigned Nephrology Provider 03/15/22 03/21/22 Len Hooks MD 717 [facility] 353 [place] [address] Assigned Nephrology Provider 03/22/22 12/26/22 Delvin Bob MD 420 [facility] 250 [place], [place] [address]375 Assigned PCP 04/26/22 12/12/22 Love Hernandez PA-C 6363 [facility] 500 [place] [address] Physician Vacuum Spindle Sander Urology 12/01/22 Conrado Evans MD 717 [facility] 353 [facility] 1931 [place] [address] Assigned Nephrology Provider 12/27/22 06/21/24 Love Hernandez PA-C 6363 [facility] 500 [place], [place] 603415 Assigned Surgical Provider 01/17/23 [place] [address] [address], [place] [address] Assigned Gastroenterology Provider 07/23/23 Everardo Grant MD [address] [place] [address] 957945 Physician Infectious Diseases 09/23/23 Rye Billings MD [address] [place] [address] 705125 Assigned Infectious Disease Provider 10/23/23 Conrado Evans MD [address] [place] [address] Nephrology 08/25/24 Delvin Lopez MD [address] [place] [address] 051445 Nephrology 08/25/24 Carissa Putnam, RN [facility] [address] [place] [address] Specialty Pipeline Controller Pharmacy 10/10/24 10/10/24 documented as of this encounter
--- OUTSIDE RECORDS SUMMARY | 2024-10-13 08:58 | XMS_ITS | Encounter Summary ---
Author Organization [facility] Address [address] [place] [address] Care Team Providers Care Watcher Automat Long Goods Name Role Phone Robert Marley MD Primary Care Provider [phone] Tayo Lacey MD Unavailable [phone] Christopher Quiroga MD Unavailable Lance Simpson PA-C Unavailable [phone] Sherri Kingston Unavailable [phone] Delvin Bob MD Unavailable [phone] Love Hernandez-C Unavailable Love Hernandez-C Unavailable Gordy Nickerson MD Unavailable [phone] Everardo Grant MD Unavailable Rey Billings MD Unavailable [phone] Conrado Evans MD Unavailable [phone] Delvin Lopez MD Unavailable [phone] Encounter Details Date Type Department Care Team (Latest Contact Info) Description 09/19/2024 Travel Social History Tobacco Use Types Packs/Day [...] on file Legal Sex Female 3:26 AM EDGE BANDER HAND Gender Identity Not on file Sexual Orientation Not on file Occupation Industry Job Start Date Job End Date Not on file Not on file Not on file Not on file documented as of this encounter Plan of Treatment Upcoming Encounters Date Type Department Care Team (Late st Contact Info) Description 10/25/2024 10:00 AM CDT Virtual Visit [facility] [address] [place] [address] Edith Brito 10/26/2024 8:30 AM CDT Lab [facility] [address] [place] [address] 200 [place] [address] Conrado Evans MD 717 [facility] 353 [facility] 1932 [place] [address] documented as of this encounter Visit Diagnoses Not on filedocumented in this encounter Additional Health Concerns 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, 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 Parvovirus 07/16/2023 07/16/2023 10/03/2024 4:22 PM CDT Assessment Noted Time PHQ-9 Depression Total Score: 18 023 10:27 AM EDGE BANDER HAND documented as of this encounter Care Teams Watcher Automat Long Goods Relationship Specialty Start Date End Date Robert Marley MD [facility] [id number] [place] [address] PCP - General Family Practice 12/08/10 Tayo Lacey MD [facility] [address] [place] [address] Cardiology 08/30/14 Christopher Quiroga MD [facility] [address] [place] [address] Oncology 07/02/16 Lance Simpson PA-C [address] [place] [address] 439415 Physician Spot Man Physician Spot Man 01/07/18 Sherri Kingston PA [address] [place] [address] [place]rology [place], [place] 725035 Physician Spot Man Physician Spot Man 12/21/18 Delvin Bob MD [address] [place] [address] 250 [place] [address] Internal Medicine 11/11/19 Love Hernandez PA-C [address] [place] 500 [place], [place] 449815 Physician Spot Man Urology 12/01/22 Love Hernandez PA-C [address] [place] 500 [place], [place] 45[address]95 Assigned Surgical Provider 01/17/23 [place] [address] [place], [place] [address] Assigned Gastroenterology Provider 07/23/23 Everardo Grant MD 909 [place] [address] Physician Infectious Diseases 09/23/23 Rey Billings MD 909 [place] [address] Assigned Infectious Disease Provider 10/23/23 Conrado Evans MD 717 [facility] [address] 353 [facility] 1932 [place] [address] Nephrology 08/25/24 Delvin Lopez MD 909 [place] [address] Nephrology 08/25/24 documented as of this encounter
--- OUTSIDE RECORDS SUMMARY | 2024-10-13 08:58 | XMS_ITS | Encounter Summary ---
Author Organization [place] Address [address] [place] [address] Care Team Providers Care Protocol Officer Name Role Phone Robert Marley MD Primary Care Provider [phone] Tayo Lacey MD Unavailable [phone] Christopher Quiroga MD Unavailable Lance Simpson-C Unavailable Sherri Kingston Unavailable [phone] Delvin Bob MD Unavailable [phone] Love HernandezC Unavailable Conrado Evans MD Unavailable [phone] Love Hernandez-C Unavailable Gordy Nickerson MD Unavailable Everardo Grant MD Unavailable Rey Billings MD Unavailable [phone] Conrado Evans MD Unavailable Delvin Lopez MD Unavailable [phone] Carissa Putnam RN Unavailable [phone] Encounter Details Date Type Department Care Team (Late st Contact Info) Description 11/17/2023 [facility] Trans[facility] [address] [place] [phone] Diana Parsons, RN Social History Tobacco Use [...] on file Legal Sex Female 3:26 AM BUCKET TURNER Gender Identity Not on file Sexual Orientation [...] [facility] [address] [place] [address] Edith Brito 10/26/2024 8:30 AM CDT Lab [facility] Ctr [facility] [address] [facility] 200 [place] [address] Conrado Evans MD 717 [facility] 353 [facility] 1932 [place] [address] documented as of this encounter Visit Diagnoses Not on filedocumented in this encounter Additional Health Concerns 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 The [place] Department of Health ([facility]) and CDC recommend that we screen this patient to prevent the spread of these organisms within our healthcare facility. Infection Prevention has placed orders for collecting a rectal swab for CP-RESPIRATORY CARE INSTRUCTOR to evaluate if this patient is now a carrier. This patient was identified to have a low risk exposure in which case Contact Precautions are not necessary unless the patient tests positive. Screening is voluntary. Please notify Infection Prevention if the patient declines testing. Additional information and resources can be found on the Infection Prevention MDRO Sharepoint page. 08/04/2023 08/04/2023 02/02/2024 11:39 PM BUCKET TURNER Assessment Noted Time PHQ-9 Depression Total Score: 18 023 10:27 AM BUCKET TURNER documented as of this encounter Care Teams Protocol Officer Relationship Specialty Start Date End Date Robert Marley MD [facility] [place] [address] [place] [address] PCP - General Family Practice 12/08/10 Tayo Lacey MD [facility] [place] [address] [place] [address] Cardiology 08/30/14 Christopher Quiroga MD [facility] 675 [address] [facility] 200 [place] [address] Oncology 07/02/16 Lance Simpson PA-C 909 [place], [place] 67[address]55 Physician Supervisor Paper Machine Physician Supervisor Paper Machine 01/07/18 Sherri Kingston PA [address] [place] [address] [place] [address] Physician Supervisor Paper Machine Physician Supervisor Paper Machine 12/21/18 Delvin Bob MD [address] [place] [address] 250 [place] [address] Internal Medicine 11/11/19 Love Hernandez PA-C 6363 [facility] S [facility] 500 [place] [address] Physician Supervisor Paper Machine Urology 12/01/22 Conrado Evans MD [address] [place] [address] [place] [address] Assigned Nephrology Provider 12/27/22 06/21/24 Love Hernandez PA-C 6363 [facility] S [facility] 500 [place] [address] Assigned Surgical Provider 01/17/23 [place] [address] [address] [place], [place] 684039 Assigned Gastroenterology Provider 07/23/23 Everardo Grant MD [address] [place] [address] 543335 Physician Infectious Diseases 09/23/23 Rey Billings MD [address] [place] [address] Assigned Infectious Disease Provider 10/23/23 Conrado Evans MD [address] [place] [address] Nephrology 08/25/24 Delvin Lopez MD [address] [place] [address] Nephrology 08/25/24 Carissa Putnam RN [facility] [address] [place] [address] Specialty Medical Assistant [facility] 10/10/24 documented as of this encounter
--- OUTSIDE RECORDS SUMMARY | 2024-10-13 08:58 | XMS_ITS | Encounter Summary ---
Author Organization [place] Address [address] [place] [address] Care Team Providers Care Cassandra Architect Name Role Phone Robert Marley MD Primary Care Provider [phone] Tayo Lacey MD Unavailable [phone] Christopher Quiroga MD Unavailable Lance Simpson PA-C Unavailable Sherri Kingston Unavailable [phone] Delvin Bob MD Unavailable Love Hernandez-C Unavailable Love Hernandez-C Unavailable Gordy Nickerson MD Unavailable Everardo [place] MD Unavailable Rey Billings MD Unavailable [phone] Conrado Evans MD Unavailable Delvin Lopez MD Unavailable [phone] Encounter Details Date Type Department Care Team (Late st Contact Info) Description 09/26/2024 [facility] Interventional Radiology [address] [place] [address] Chelsey Raya, RN Social History Tobacco Use Types Packs/Day [...] on file 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 Sex 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 Gender Identity Not on file Sexual Orientation Not on file Occupation Industry Job Start Date Job End Date Not on file Not on file Not on file Not on file documented as of this encounter Plan of Treatment Upcoming Encounters Date Type Department Care Team (Late st Contact Info) Description 10/25/2024 10:00 AM CDT Virtual Visit [facility] [address] [place] [phone] Edith Brito 10/26/2024 8:30 AM CDT Lab [facility] [address] [facility] 200 [place] [address] Conrado Evans MD 717 [facility] 353 [facility] [address] [place] [address] documented as of this encounter Visit Diagnoses Not on filedocumented in this encounter Additional Health Concerns 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, 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 Parvovirus 07/16/2023 07/16/2023 10/03/2024 4:22 PM CDT Assessment Noted Time PHQ-9 Depression Total Score: 18 023 10:27 AM FIRE EXTINGUISHER REPAIRER INSPECTOR documented as of this encounter Care Teams Cassandra Architect Relationship Specialty Start Date End Date Robert Marley MD [facility] [address] [place] [address] PCP - General Family Practice 12/08/10 Tayo Lacey MD [facility] [address] [place] [address] Cardiology 08/30/14 Christopher Quiroga MD [facility] [address] [place] [address] Oncology 07/02/16 Lance Simpson PA-C [address] [place] [address] Physician Attendance Clerk Physician Attendance Clerk 01/07/18 Sherri Kingston PA [address] [place] [address] [place] [address] Physician Attendance Clerk Physician Attendance Clerk 12/21/18 Delvin Bob MD [address] [place] [address] 250 [place] [address] Internal Medicine 11/11/19 Love Hernandez PA-C [address] [place] [address] [place], [place] [address] Physician Attendance Clerk Urology 12/01/22 Love Hernandez PA-C [address] [place] [address] [place], [place] [address] Assigned Surgical Provider 01/17/23 [place] [address] [place] [address] Assigned Gastroenterology Provider 07/23/23 Everardo [place] MD 909 [place] [address] Physician Infectious Diseases 09/23/23 Rey Billings MD [address] [place] [address] Assigned Infectious Disease Provider 10/23/23 Conrado Evans MD [address] [place] [address] 353 [facility] [address] [place] [address] Nephrology 08/25/24 Delvin Lopez MD [address] [place] [address] Nephrology 08/25/24 documented as of this encounter
--- OUTSIDE RECORDS SUMMARY | 2024-10-13 08:58 | XMS_ITS | Encounter Summary ---
Author Organization [place] Address [address] [place] [address] Care Team Providers Care Fiscal Accounting Clerk Name Role Phone Robert Marley MD Primary Care Provider Chana Cheng MD Unavailable [phone] Anoop Garcia MD Unavailable Unavailable Barbara Carlson MD Unavailable Tayo Lacey MD Unavailable [phone] TuBasil shaikh MD Unavailable Charleen Lynne MD Unavailable [phone] Olimpia Williamson RN Unavailable [phone] Rin Dewitt RN Unavailable [phone] Rin Dewitt RN Unavailable [phone] Qian Rodriguez MD Unavailable [phone] Sherri Kingston Unavailable [phone] Olimpia Williamson RN Unavailable [phone] Olimpia Williamson RN Unavailable [phone] Christopher Quiroga MD Unavailable Claudia Yousif RN Unavailable Lance Simpson PA-C Unavailable [phone] Olimpia Williamson RN Unavailable [phone] Sherri Kingston Unavailable Delvin Bob MD Unavailable Charleen Lynne MD Unavailable [phone] ChapaShakira zelaya MD Unavailable Unav ailable Zoltan Eric ADRIANKerry Unavailable [phone] Delvin Bob MD Unavailable [phone] Shante Mathisony Jaden LÓPEZ Unavailable + Sherri Kingston Unavailable Pedro Winchester MD Unavailable ChapaShakira zelaya MD Unavailable Unav ailable Jovanni Dempsey MD Unavailable [phone] Jovanni Dempsey MD Unavailable [phone] Len Hooks MD Unavailable Delvin Bob MD Unavailable Love Hernandez PA-C Unavailable Conrado Evans MD Unavailable [phone] Love Hernandez PA-C Unavailable Gordy Nickerson MD Unavailable [phone] Everardo [place] MD Unavailable Rey Billings MD Unavailable [phone] Conrado Evans MD Unavailable Delvin Lopez MD Unavailable [phone] Carissa Putnam RN Unavailable [phone] Encounter Details Date Type Department Care Team (Late st Contact Info) Description 05/17/2015 External Order Results [facility] [address] [place] [address] Social History Tobacco Use Types Packs/Day Years Used Date Smoking Tobacco: Former Smokeless Tobacco: Never Alcohol Use Standard Drinks/Week Comments No 0 (1 standard drink = 0.6 oz pur e alcohol) Comments No Sex and Gender Information Value Date Recorded Sex Assigned at Not on file Legal Sex 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 Gender Identity Not on file Sexual Orientation Not on file Occupation Industry Job Start Date Job End Date Not on file Not on file Not on file Not on file documented as of this encounter Plan of Treatment Upcoming Encounters Date Type Department Care Team (Late st Contact Info) Description 10/25/2024 10:00 AM CDT Virtual Visit [facility] [address] [place] [address] Edith Brito 10/26/2024 8:30 AM CDT Lab [facility] Cancer Center [facility] Medical Ctr [facility] [address] [place] [address] [place] [phone] Conrado Evans MD 715 [facility] 353 [facility] 1932 [place] [address] documented as of this encounter Procedures Procedure Name Priority Date/Time Associated Diagnosis Comments EXTERNAL LAB RESULTS Routine 05/16/2015 8:59 AM CDT documented in this encounter Results * (ABNORMAL) TXP External Lab Result (05/16/2015 8:59 AM CDT) Glucose (External) 66 60 - 115 mg/dL LABDE SCAN Urea Nitrogen (External) 25(H) 5 - 24 LABDE SCAN Creatinine (External) 0.7 0.5 - 1.5 MG/DL LABDE SCAN Sodium (External) 143 135 - 149 MMOL/L LABDE SCAN Potassium (External) 3.8 3.6 - 5.1 LABDE SCAN Chloride (External) 103 96 - 114 MMOL/L LABDE SCAN CO2 (External) 33(H) 20 - 32 MMOL/L LABDE SCAN Calcium (External) 8.9 8.4 - 10.6 MG/DL LABDE SCAN Amylase (External) 59 18 - 89 LABDE SCAN Lipase Level (External) 68 23 - 300 LABDE SCAN LD (External) 906(H) 313 - 618 U/L LABDE SCAN WBC Count (External) 5.26 5.00 - 10.00 K/UL LABDE SCAN Hemoglobin (External) 11.6(L) 12.0 - 15.5 GM/DL LABDE SCAN MCV (External) 102(H) 82 - 98 FL LABDE SCAN MCHC (External) 31(L) 32 - 36 GM/DL LABDE SCAN % Neutrophils (External) 74.1(H) 50.0 - 70.0 % LABDE SCAN % Monocytes (External) 10.5 0.00 - 11.0 % LABDE SCAN Absolute Neutrophils (External) 3.90 1.70 - 7.00 K/UL LABDE SCAN Absolute Monocytes (External) 0.55 0.30 - 0.90 K/UL LABDE SCAN RBC Count (External) 3.67(L) 3.90 - 5.03 LABDE SCAN Hematocrit (External) 37.4 34.9 - 44.5 LABDE SCAN MCH (External) 32 27 - 34 LABDE SCAN Platelet Count (External) 247 150 - 450 LABDE SCAN % Lymphocytes (External) 13.1(L) 25.0 - 45.0 LABDE SCAN Absolute Lymphocytes (External) 0.69(L) 0.90 - 2.90 LABDE SCAN Retic % (External) 2.5(H) 0.5 - 1.5 % LABDE SCAN Everolimus (External) 2.1 ng/mL LABDE SCAN 05/16/2015 8:59 AM CDT Narrative BOBBY PFT - 05/18/2015 10:45 AM CDT Verified by Pao Oswald on 05/17/2015. Verified by Guerrero Pinzon on 05/18/2015. 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 Meena Torres [facility] Infection Prevention 07/11/2019 at [...] Out COVID-19 04/19/2020 04/19/2020 04/19/2020 1:56 PM CLUB WAITER/WAITRESS Rule Out COVID-19 04/19/2020 04/20/2020 04/20/2020 6:34 AM CLUB WAITER/WAITRESS Rule Out COVID-19 12/15/2020 12/15/2020 12/15/2020 4:33 PM CDT Rule Out C-difficile 01/06/2021 01/08/2021 021 11:43 AM CLUB WAITER/WAITRESS Rule Out C-difficile 07/10/2021 07/10/2021 022 5:56 PM CDT Rule Out C-difficile 07/16/2023 07/16/2023 024 9:21 PM CDT Rule Out Parvovirus 07/16/2023 07/16/2023 07/19/19 24 12:29 PM CDT Parvovirus 07/16/2023 07/16/2023 10/03/2024 4:22 PM CDT [id number] Comment:This patient was exposed to a person with a known CP-WATER PUMP OPERATOR and has the potential for having acquired this pathogen of concern. The [place] Department of Health ([facility]) and CDC recommend that we screen this patient to prevent the spread of these organisms within our healthcare facility. Infection Prevention has placed orders for collecting a rectal swab for CP-WATER PUMP OPERATOR to evaluate if this patient is [...] Sharepoint page. 08/04/2023 08/04/2023 02/02/2024 11:39 PM CLUB WAITER/WAITRESS Rule Out Parvovirus 09/28/2023 09/28/2023 10/05/19 24 11:41 PM CDT documented as of this encounter Care Teams Fiscal Accounting Clerk Relationship Specialty Start Date End Date Robert Marley MD [address] [address] PCP - General Family Practice 12/08/[address] [facility] [address] [place] [address] Nephrology 05/26/14 11/12/[address] [facility] [address] [place] [address] Transplant 05/26/14 02/02/18 Barbara Carlson MD [address] [place] [address] Referring Physician Nephrology 08/30/14 11/12/15 Tayo Lacey MD [address] [place] [address] Cardiology 08/30/14 Basil Plummer MD 909 [place] [address] Neurology 05/09/15 04/23/16 Charleen Lynne MD [address] [place] [id number] MD Oncology 06/14/15 12/19/18 Olimpia Williamson, RN Nurse Coordinator Oncology 06/14/15 04/23/16 Rin Dewitt RN Nurse Coordinator Neurology 07/24/15 04/23/16 Rin Dewitt RN Nurse Coordinator Neurology 10/25/15 10/12/17 Qian Rodriguez MD 717 [facility] 353 [place] [address] Nephrology 11/13/15 06/16/16 Sherri Kingston PA 420 [facility] 394 [place] [address] Physician Chief Order Dispatcher Physician Chief Order Dispatcher 03/20/16 Olimpia Williamson, RN Nurse Coordinator Oncology 06/26/16 06/26/16 Olimpia Williasmon, RN Nurse Coordinator Oncology 06/26/16 06/16/18 Christopher Quiroga MD [facility] [address] [place] [address] Oncology 07/02/16 Claudia Yousif, RN Nurse Coordinator Gastroenterology 02/09/17 09/16/22 Lance Simpson PA-C [address] [place] [address] Physician Chief Order Dispatcher Physician Chief Order Dispatcher 01/07/18 Olimpia Williamson, SONIA Specialty Travel Accommodations [facility] Hematology & Oncology 05/06/18 12/19/18 Sherri Kingston PA [address] [place] [address] Urology [place], [place] [address] Physician Chief Order Dispatcher Physician Chief Order Dispatcher 12/21/18 Delvin Bob MD [address] [place] [address] 250 [place], [place] [address] Internal Medicine 11/11/19 Charleen Lynne MD [address] [place] [address] [id number] Assigned Cancer Care Provider 12/23/19 03/23/21 Shakira Chapa MD INACTIVE IN [place] 06/29/2020 Assigned Surgical Provider 12/23/19 07/14/20 Zoltan Eric DPM [address] [facility] [address] [place] [address] Assigned Musculoskeletal Provider 12/23/19 07/26/21 Delvin Bob MD 420 [facility] 250 [place] [address] Assigned PCP 12/08/19 02/14/22 Maximo Mathis DO [address]09 [place] [address] Assigned Neuroscience Provider 02/12/20 08/09/21 Sherri Kingston PA 909 [facility] Urology [place], [place] [address] Assigned Surgical Provider 07/15/20 10/06/20 Pedro Winchester MD [address] [facility] [place] 3[address] Assigned Heart and Vascular Provider 08/05/20 01/31/22 Shakira Chapa MD INACTIVE IN IN OF 06/29/2020 Assigned Surgical Provider 10/07/20 10/13/20 Jovanni Dempsey MD [address] [place], [place] 7[address] Assigned Nephrology Provider 03/24/21 03/14/22 Jovanni Dempsey MD [address] [place] [address] Assigned Nephrology Provider 03/15/22 03/21/22 Len Hooks MD 717 [facility] 353 [place] [address] Assigned Nephrology Provider 03/22/22 12/26/22 Delvin Bob MD [address] [place] [address] 250 [place] [address] Assigned PCP 04/26/22 12/12/22 Love Hernandez PA-C 6363 [facility] [address] [place] [address] [place] [address] Physician Chief Order Dispatcher Urology 12/01/22 Conrado Evans MD 717 [facility] 353 [facility] [address] [place] [address] Assigned Nephrology Provider 12/27/22 06/21/24 Love Hernandez PA-C [address] [facility] [address] [facility] 500 [place], [place] [address] Assigned Surgical Provider 01/17/23 [place] [address] [place] [address] Assigned Gastroenterology Provider 07/23/23 Everardo [place] MD [address] [place] [address] Physician Infectious Diseases 09/23/23 Rey Billings MD [address] [place] [address] Assigned Infectious Disease Provider 10/23/23 Conrado Evans MD 717 [facility] 353 [facility] [address] [place] [address] Nephrology 08/25/24 Delvin Lopez MD [address] [place], [place] [address] Nephrology 08/25/24 Carissa Putnam, RN [facility] 7[address] [place] [address] Specialty Travel Accommodations [facility] 10/10/24 10/10/24 documented as of this encounter
--- OUTSIDE RECORDS SUMMARY | 2024-10-13 08:59 | XMS_ITS | Encounter Summary ---
Author Organization [facility] Address [address] [place] [address] Care Team Providers Care Insurance Marketing Rep Name Role Phone Robert Marley MD Primary Care Provider Chana Cheng MD Unavailable [phone] Anoop Garcia MD Unavailable Unavailable Barbara Carlson MD Unavailable Tayo Lacey MD Unavailable [phone] TuBasil shaikh MD Unavailable Charleen Lynne MD Unavailable [phone] Olimpia Williamson RN Unavailable [phone] Rin Dewitt RN Unavailable [phone] Rin Dewitt RN Unavailable [phone] Qian Rodriguez MD Unavailable [phone] Sherri Kingston Unavailable [phone] Olimpia Williamson RN Unavailable [phone] Olimpia Williamson RN Unavailable [phone] Christopher Quiroga MD Unavailable Claudia Yousif RN Unavailable Lance Simpson PA-C Unavailable [phone] Olimpia Williamson RN Unavailable [phone] Sherri Kingston Unavailable [phone] Delvin Bob MD Unavailable [phone] Charleen Lynne MD Unavailable [phone] ChapaShakira zelaya MD Unavailable Unav ailable Zoltan Eric ADRIANKerry Unavailable [phone] Delvin Bob MD Unavailable Shante Mathisony Jaden LÓPEZ Unavailable + Sherri Kingston Unavailable [phone] Pedro Winchester MD Unavailable [phone] ChapaShakira zelaya MD Unavailable Unav ailable Jovanni Dempsey MD Unavailable [phone] Jovanni Dempsey MD Unavailable [phone] Len Hooks MD Unavailable Delvin Bob MD Unavailable [phone] Love Hernandez PA-C Unavailable Conrado Evans MD Unavailable [phone] Love Hernandez PA-C Unavailable [phone] Gordy Nickerson MD Unavailable Everardo Grant MD Unavailable Rey Billings MD Unavailable [phone] Conrado Evans MD Unavailable Delvin Lopez MD Unavailable [phone] Carissa Putnam RN Unavailable [phone] Encounter Details Date Type Department Care Team (Late st Contact Info) Description 06/04/2015 External Order Results [facility] [address] [place] [address] Social History Tobacco Use Types Packs/Day Years Used Date Smoking Tobacco: Former Smokeless Tobacco: Never Alcohol Use Standard Drinks/Week Comments No 0 (1 standard drink = 0.6 oz pur e alcohol) Comments No Sex and Gender Information Value Date Recorded Sex Assigned at Not on file 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 Gender Identity Not on file Sexual [...] [facility] [address] [place] [address] Edith Brito 10/26/2024 8:30 AM CDT Lab [facility] [address] [place] [address] [place] [phone] Conrado Evans MD [address] [facility] [address] [facility] [address] [place] [address] documented as of this encounter Procedures Procedure Name Priority Date/Time Associated Diagnosis Comments EXTERNAL LAB RESULTS Routine 06/04/2015 9:55 AM CDT documented in this encounter Results * (ABNORMAL) TXP External Lab Result (06/04/2015 9:55 AM CDT) Calcium (External) 9.2 8.4 - 10.6 mg/dL [facility] Urea Nitrogen (External) 37(H) 5 - 24 mg/dL [facility] Creatinine (External) 1.0 0.5 - 1.5 mg/dL [facility] Glucose (External) 109 60 - 115 mg/dL [facility] Sodium (External) 145 135 - 149 mmol/L LABDE SCAN Potassium (External) 2.7(LL) 3.6 - 5.1 mmol/L [facility]DE SCAN Chloride (External) 100 96 - 114 mmol/L [facility] CO2 (External) 32 20 - 32 mmol/L [facility] SC[facility] Amylase (External) 44 18 - 89 U/L [facility] SCAN Lipase Level (External) 29 23 - 300 U/L [facility]DE SC[facility] WBC Count (External) 17.14(H) 5.0 - 10.0 K/uL LABDE SCAN RBC Count (External) 2.2(L) 3.9 - 5.03 M/uL LABDE SCAN Hemoglobin (External) 6.9(LL) 12.0 - 15.5 g/dL LABDE SCAN Hematocrit (External) 22.3(L) 34.9 - 44.5 % LABDE SCAN MCV (External) 101(H) 82 - 98 fL LABDE SCAN MCH (External) 31 27 - 34 pg LABDE SCAN MCHC (External) 31(L) 32 - 36 g/dL LABDE SCAN Platelet Count (External) 561(H) 150 - 450 K/uL LABDE SCAN % Neutrophils (External) 91.9(H) 50.0 - 70.0 % LABDE SCAN % Lymphocytes (External) 2.9(L) 25.0 - 45.0 % LABDE SCAN % Monocytes (External) 4.7 0.0 - 11.0 % LABDE SCAN % Eosinophils (External) 0.2 0.0 - 7.0 % LABDE SCAN % Basophils (External) 0.1 0.0 - 3.0 % LABDE SCAN Absolute Neutrophils (External) 15.77(H) 1.7 - 7.0 K/uL LABDE SCAN Absolute Lymphocytes (External) 0.5(L) 0.9 - 2.9 K/uL LABDE SCAN Absolute Monocytes (External) 0.8 0.3 - 0.9 K/uL LABDE SCAN Absolute Eosinophils (External) 0.03 0.0 - 0.5 K/uL LABDE SCAN Absolute Basophils (External) 0.01 0.0 - 0.2 K/uL LABDE SCAN Retic abs (External) 3.4(H) 0.5 - 1.5 % LABDE SCAN 06/04/2015 9:55 AM CDT Narrative [facility] - 06/04/2015 12:01 PM CDT Verified by Guerrero Pinzon on 06/04/2015. 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 Meena Torres [facility] Infection Prevention 07/11/2019 at 3:56 [...] Out COVID-19 04/19/2020 04/19/2020 04/19/2020 1:56 PM PERSONAL INJURY LAW SPECIALIST Rule Out COVID-19 04/19/2020 04/20/2020 04/20/2020 6:34 AM PERSONAL INJURY LAW SPECIALIST Rule Out COVID-19 12/15/2020 12/15/2020 12/15/2020 4:33 PM CDT Rule Out C-difficile 01/06/2021 01/08/2021 021 11:43 AM PERSONAL INJURY LAW SPECIALIST Rule Out C-difficile 07/10/2021 07/10/2021 022 5:56 PM CDT Rule Out C-difficile 07/16/2023 07/16/2023 024 9:21 PM CDT Rule Out Parvovirus 07/16/2023 07/16/2023 07/19/19 24 12:29 PM CDT Parvovirus 07/16/2023 07/16/2023 10/03/2024 4:22 PM CDT [id number] Comment:This patient was exposed to a person with a known CP-JOURNAL CLERK and has the potential for having acquired this pathogen of concern. [facility] ([facility]) and CDC recommend that we screen this patient to prevent the spread of these organisms within our healthcare facility. Infection Prevention has placed orders for collecting a rectal swab for CP-JOURNAL CLERK to evaluate if this patient is [...] Sharepoint page. 08/04/2023 08/04/2023 02/02/2024 11:39 PM PERSONAL INJURY LAW SPECIALIST Rule Out Parvovirus 09/28/2023 09/28/2023 10/05/19 24 11:41 PM CDT documented as of this encounter Care Teams Insurance Marketing Rep Relationship Specialty Start Date End Date Robert Marley MD [address] [address] PCP - General Family Practice 12/08/10 Chana Cheng MD [address] [address] Nephrology 05/26/14 11/12/15 Anoop Garcia MD [address] [address] Transplant 05/26/14 02/02/18 Barbara Carlson MD [address] [place] [address] Referring Physician Nephrology 08/30/14 11/12/15 Tayo Lacey MD [address] [address] Cardiology 08/30/14 Basil Plummer MD [address] [place] [address] [id number] Neurology 05/09/15 04/23/16 Charleen Lynne MD [address] [place] [address] [phone] MD Oncology 06/14/15 12/19/18 Olimpia Williamson, RN Nurse Coordinator Oncology 06/14/15 04/23/16 Rin Dewitt, RN Nurse Coordinator Neurology 07/24/15 04/23/16 Rin Dewitt, RN Nurse Coordinator Neurology 10/25/15 10/12/17 Qian Rodriguez MD [address] [facility] [address] [place], [place] [address] Nephrology 11/13/15 06/16/16 Sherri Kingston PA [address] [facility] [address] [place], [place] [phone] Physician Sewing Room Supervisor Physician Sewing Room Supervisor 03/20/16 Olimpia Williamson, RN Nurse Coordinator Oncology 06/26/16 06/26/16 Olimpia Williamson, RN Nurse Coordinator Oncology 06/26/16 06/16/18 Christopher Quiroga MD [place] [facility] [address] [place] [address] MD Oncology 07/02/16 Claudia Yousif RN Nurse Coordinator Gastroenterology 02/09/17 09/16/22 Lance Simpson PA-C [address] [place] [address] [phone] Physician Sewing Room Supervisor Physician Sewing Room Supervisor 01/07/18 Olimpia Williamson, RN [employer] Flatbed Truck Driver Hematology & Oncology 05/06/18 12/19/18 Sherri Kingston PA [address] [place] [address] [place] [address] Physician Sewing Room Supervisor Physician Sewing Room Supervisor 12/21/18 Delvin Bob MD [address] [place] [address] [phone] Internal Medicine 11/11/19 Charleen Lynne MD [address] [place] [address] [phone] Assigned Cancer Care Provider 12/23/19 03/23/21 Shakira Chapa MD INACTIVE IN [place] [facility] 06/29/2020 Assigned Surgical Provider 12/23/19 07/14/20 Zoltan Eric DPM [address] [facility] [address] [place] [address] Assigned Musculoskeletal Provider 12/23/19 07/26/21 Delvin Bob MD [address] [facility] [address] [place] [address] Assigned PCP 12/08/19 02/14/22 Maximo Mathis DO [address] [place] [address] [phone] Assigned Neuroscience Provider 02/12/20 08/09/21 Sherri Kingston PA [address] [facility] Urology [place], [place] [phone] Assigned Surgical Provider 07/15/20 10/06/20 Pedro Winchester MD [address] [facility] [place] [address] Assigned Heart and Vascular Provider 08/05/20 01/31/22 Shakira Chapa MD INACTIVE IN [facility] 06/29/2020 Assigned Surgical Provider 10/07/20 10/13/20 Jovanni Dempsey MD [address] [place], [place] 964[address] Assigned Nephrology Provider 03/24/21 03/14/22 Jovanni Dempsey MD [address] [place] [address] Assigned Nephrology Provider 03/15/22 03/21/22 Len Hooks MD [address] [facility] [address] [place] [address] Assigned Nephrology Provider 03/22/22 12/26/22 Delvin Bob MD [address] [facility] [address] [place] [address] Assigned PCP 04/26/22 12/12/22 Love Hernandez PA-C [address] [facility] [address] [place], [place] [address] Physician Sewing Room Supervisor Urology 12/01/22 Conrado Evans MD 7[address] [facility] [address] [facility] [address] [place] [address] Assigned Nephrology Provider 12/27/22 06/21/24 Love Hernandez PA-C [address] [facility] [address] [place], [place] [address] Assigned Surgical Provider 01/17/23 [place] [address] [place] [address] Assigned Gastroenterology Provider 07/23/23 Everardo Grant MD [address] [place], [place] [phone] Physician Infectious Diseases 09/23/23 Rey Billings MD [address] [place] [address] Assigned Infectious Disease Provider 10/23/23 Conrado Evans MD [address] [facility] [address] [facility] [address] [place] [address] Nephrology 08/25/24 Delvin Lopez MD [address] [place], [place] 349085 Nephrology 08/25/24 Carissa Putnam, RN [facility] [address] [place] [address] Specialty Local Company Flatbed Truck Driver Pharmacy 10/10/24 10/10/24 documented as of this encounter
--- OUTSIDE RECORDS SUMMARY | 2024-10-13 08:59 | XMS_ITS | Clinical Summary ---
Author Organization [facility] Address [address] [place] [address] Care Team Providers Care Equipment Engineering Technician Name Role Phone Robert Marley MD Primary Care Provider [phone] Tayo Lacey MD Unavailable [phone] Christopher Quiroga MD Unavailable Lance Simpson PA-C Unavailable [phone] Sherri Kingston Unavailable [phone] Delvin Bob MD Unavailable [phone] Love Hernandez-C Unavailable Love Hernandez-C Unavailable [phone] Gordy Nickerson MD Unavailable [phone] Everardo Grant MD Unavailable Rey Billings MD Unavailable [phone] Conrado Evans MD Unavailable Delvin Lopez MD Unavailable [phone] Allergies Active Allergy Reactions Criticality Noted Date Comments Blood Transfusion Related (Informational Only) Other (See Comments) High 06/22/2015 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 Finding compatible RBCs may take up to 24 hours or more. Consult with the Blood Bank MD for transfusion guidance. Hydromorphone Other (See Comments) High 12/10/2015 Unresponsiveness, likely from too high of dose. Other reaction(s): Other (see comments) Unresponsiveness Lisinopril Anaphylaxis,Angioed festus High 12/04/2011 Red Blood Cells Other (See Comments) High 06/22/2015 Informational: Patient has a complex [...] Blood Bank MD for transfusion guidance. Medications pantoprazole (PROTONIX) 40 MG EC tablet Take 40 mg by mouth 2 times daily Active rosuvastatin (CRESTOR) 40 MG tablet Take 40 mg by mouth every evening Active gabapentin (NEURONTIN) 300 MG capsule Take 300 mg by mouth 2 times daily Active acetaminophen (TYLENOL) 500 MG tablet Take 1,000 mg by mouth every 6 hours as needed for mild pain Active apixaban ANTICOAGULANT (ELIQUIS) 5 MG tablet Take 5 mg by mouth 2 times daily Active colesevelam (WELCHOL) 625 MG tablet Take 1 tablet by mouth 2 times daily (with meals) Active diphenoxylate-atr opine (LOMOTIL) 2.5-0.025 MG tablet Take 2 tablets by mouth 3 times daily as needed for diarrhea Active Ferrous Gluconate 324 (37.5 Fe) MG TABS Take 1 tablet by mouth daily with food Active qeeyer-gmdktltk-h mylase (CREON 12) [id number] units CPEP Take 1 capsule by mouth 2 times daily Active topiramate (TOPAMAX) 50 MG tablet Take 50 mg by mouth 2 times daily Active sodium bicarbonate 650 MG tabletIndications :Elevated serum creatinine,Kidney replaced by transplant Take 1 tablet (650 mg) by mouth 2 times daily. 60 tablet 11 11/10/19 24 Active tacrolimus (GENERIC EQUIVALENT) 1 MG capsuleIndication s:Kidney replaced by transplant Take 4 capsules (4 mg) by mouth 2 times daily. 240 capsule 11 04/28/19 25 Active tacrolimus (GENERIC EQUIVALENT) 0.5 MG capsuleIndication s:Kidney replaced by transplant TAKE 1 CAPSULE (0.5 MG) BY MOUTH 2 TIMES DAILY. 60 capsule 3 09/09/19 25 Active aspirin 81 MG EC tablet Take 81 mg by mouth daily. Active sirolimus (GENERIC EQUIVALENT) 1 MG tabletIndications :Kidney replaced by transplant Take 2 tablets (2 mg) by mouth daily. 180 tablet 3 10/08/19 Active buPROPion (WELLBUTRIN XL) 150 MG 24 hr tablet Take 1 tablet (150 mg) by mouth every morning 03/12/19 025 Discontinued citalopram (CELEXA) 20 MG tablet Take 20 mg by mouth daily 025 Discontinued sirolimus (GENERIC EQUIVALENT) 0.5 MG tabletIndications :Kidney replaced by transplant Take 3 tablets (1.5 mg) by mouth daily HOLD FOR DOSE CHANGE 08/04/19 025 Discontinued sirolimus (GENERIC EQUIVALENT) 1 MG tabletIndications :Kidney replaced by transplant Take 3 tablets (3 mg) by mouth daily. 90 tablet 08/25/19 25 025 Discontinued sirolimus (GENERIC EQUIVALENT) 1 MG tabletIndications :Kidney replaced by transplant Take 3 tablets (3 mg) by mouth daily. 90 tablet 10/05/19 025 Discontinued Active Problems Patient Care Coordination No te Formatting of this note migh t be different from the original. [facility] [place] [facility] fax [phone] (can only use this lab while pt actively following with hematology) Goes by [facility] or [facility] For lab draws: Please use microtainers when possible. Per Dr. Jose klein to use L arm for lab draws. For ABO/Type and crosses: draw 1 red tube (no gel) and 3 pink tubes. Along with a purple tube for the CBC Problem Noted Date Diagnosed Date Adjustment disorder with mixed anxiety and depre ssed mood 10/10/2024 E coli infection 10/13/2023 10/13/2023 Parvovirus infection 09/09/2023 09/09/2023 Anemia 07/16/2023 Sepsis 04/15/2023 04/15/2023 Blood infection 02/07/2023 02/07/2023 History of recurrent UTIs 12/20/2022 UTI due to Klebsiella species 11/13/2022 Herpes simplex 11/11/2022 11/11/2022 Overview (04/20/2023): Skin, Lip Bacterial infection 08/09/2022 08/09/2022 Overview (04/20/2023): 08/09/22: Right Foot Cellulitis 07/21/2022 07/21/2022 Overview (04/20/2023): 07/21/22: Left rodríguez EBV (Patrick-Lacy virus) viremia 03/12/2022 Functional diarrhea 03/12/2022 Kidney transplant infection 02/05/2022 Stage 3b chronic kidney disease 07/31/2020 Chronic pain due to trauma right LE 11/19/2017 Autoimmune hemolytic anemia 12/05/2016 Aftercare following organ transplant 04/17/2016 Iron overload due to repeated red blood cell tra nsfusions 10/08/2015 Incisional hernia following transplant 5 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 Provider to review and confirm Diabetes mellitus type 1 12/10/2010 Mild major depression 12/10/2010 Generalized anxiety disorder 12/10/2010 Overview (01/01/2015): Diagnosis updated by automated process. Provider to review and confirm. Dyslipidemia 12/10/2010 Vitamin D deficiency 01/22/2010 Peripheral neuropathy GERD (gastroesophageal reflux disease) Resolved Problems Problem Noted Date Diagnosed Date Resolved Date Severe sepsis 01/07/2021 03/12/2022 Gastroenteritis 01/06/2021 03/12/2022 Vomiting and diarrhea 01/06/20212022 Pneumonia of right upper lob e due to infectious organism 01/06/2021 03/12/2022 S/P kidney transplant 07/21/20202022 Acute kidney injury 07/21/2020 03/12/19 23 Hypotension, unspecified hypotension type 07/21/2020 03/12/2022 Acute respiratory failure with hypoxia 04/19/2020 03/12/2022 Fatigue, unspecified type 04/19/2020 Rupture of Achilles tendon, left, initial encounter 02/06/2020 04/16/2020 Acute kidney injury 12/27/2019 03/02/19 21 S/P amputation of lesser toe, left 12/20/2019 03/12/2022 Osteomyelitis of second toe of left foot 11/18/2019 03/02/2020 Overview (11/18/2019): Added automatically from request for surgery [id number] Osteomyelitis 11/05/2019 03/12/2022 Cellulitis of left foot 10/31/2019 01/03/2020 Acute kidney failure, unspecified 08/23/2019 03/02/2020 Fever 08/21/2019 03/02/2020 Kidney transplanted 08/05/2019 03/02/19 21 UTI (urinary tract infection) 07/25/2019 03/12/2022 Hematoma 07/11/2019 03/02/2020 Deep vein thrombosis 07/10/2019 021 Supratherapeutic INR 03/03/2018 021 Shock 02/25/2018 03/02/2020 Encephalopathy acute 01/27/2018 021 Cellulitis of right foot 12/07/201703/2020 Sedative and hypnotic drug p oisoning (Hypoxia) thought due excessive narcotic dose 11/19/2017 03/12/2022 Hypoxia 11/17/2017 03/02/2020 Hypoxic 11/17/2017 03/02/2020 Intractable nausea and vomiting 03/16/2017 03/12/2022 Acute head trauma 01/07/2017 03/12/2022 Ocular hemorrhage, right 12/15/201612/2022 Hypokalemia 12/11/2016 03/12/2022 Elevated troponin 12/10/2016 03/02/2020 C. difficile diarrhea 09/25/20162022 PE (pulmonary thromboembolism) 07/20/2016 03/02/2020 Idiopathic thrombocytopenic purpura 07/09/2016 03/12/2022 Thrombocytopenia 06/26/2016 03/02/2020 CKD (chronic kidney disease) stage 2, GFR 60-89 ml/min 06/20/2016 03/12/2022 Sepsis 03/17/2016 03/02/2020 Symptomatic anemia 01/29/2016 Rhinovirus infection 01/02/2016 021 Syncope 12/31/2015 12/20/2022 Cellulitis of right lower extremity 12/10/2015 03/02/2020 Hemolytic anemia associated with infection 11/06/2015 03/02/2020 S/P splenectomy 11/03/2015 03/12/2022 H/O magnetic resonance imagi ng of brain and brain stem 10/25/2015 03/02/2020 Overview (10/25/2015): 01/03/14 11:28 AM [id number] [facility] Interactive Report and [id number] View the interactive report PACS Images Show images for MRI Brain w/o contrast Study Result MRI of the Brain without contrast MRI of the Skull Base centered on the internal auditory canals without and with contrast History: right facial droop for the last 4-5 months Comparison: 04/23/2011 Technique: Axial diffusion-weighted with ADC map, T2-weighted, turboFLAIR and T1-weighted images of the brain and axial T1-weighted and coronal T2-weighted with fat saturation images centered on the internal auditory canals were obtained without intravenous contrast. Findings: Bilateral periventricular white matter T2 hyperintensity, some of which with perpendicular orientation relative to ventricles. No evidence of acute diffusion restriction, intracranial hemorrhage, mass effect, or midline shift. There is no nodular thickening along cranial nerves 7th and 8th within internal auditory canal. The visualized portion of paranasal sinuses and mastoid air cells are clear. The major intracranial arteries demonstrate patent signal void. IMPRESSION Impression: 1. Bilateral periventricular white matter T2 hyperintensity. This is a nonspecific finding and can be seen with demyelination, sequela of prior infectious, ischemic or vasculopathic process. 2. No nodular thickening along the internal auditory canal cranial nerves. 3. Evaluation was challenging due to lack of contrast administration given the patient's renal function. I have personally reviewed the examination and initial interpretation and I agree with the findings. MAGNO GAMEZ MD Order-Level Documents: History of EMG 10/25/2015 03/02/2020 Overview (10/25/2015): 01/03/2014 EMG Patient: Roxanna Monzon Date of : 1965 Age: 48 Years 0 Months Gender: Female Referring Physician: Migdalia Brito NP History & Examination: Patient with uncontrolled type 1 diabetes and multiple end-organ complications who reports right facial droop for the last 4-5 months. Query right facial nerve palsy. Examination shows weakness of right orbicularis kody but normal eyelid closure bilaterally. Techniques: Motor conduction studies and blink responses were done with surface recording electrodes.EMG was done with a concentric needle electrode. Results: Bilateral facial motor NCSs recorded from the nasalis and orbicularis kody muscles showed no significant [id number] differences. Bilateral blink responses showed no significant difference of ipsilateral R1 and R2 latencies with left versus right sided stimulation. EMG of right orbicularis kody was normal. EMG of right nasalis and frontalis showed no abnormal spontaneous activity; recruitment of motor unit potentials was possibly reduced (although firing frequencies of facial muscles are normally higher than limb muscles, thus this finding requires cautious interpretation). Motor unit morphology appeared normal. Interpretation: No convincing electrodiagnostic evidence of a right facial neuropathy (see comment). Comment: The only notable finding of the study was the possibly reduced recruitment of MUPs at the right nasalis and frontalis muscles, which, due to the reasons mentioned above, requires cautious interpretation. Otherwise, neither the needle examination nor facial motor nerve conduction studies or blink responses provide convincing evidence of a right facial neuropathy. Given the clinical finding of normal eyelid closure bilaterally, a COKE BURNER lesion causing right facial droop should be considered. Imaging of the brain is already scheduled for this purpose. EMG Physician: Aaron Raines MD Acute embolism and thrombosi s of deep vein of right proximal lower extremity 10/08/2015 Tooth decayed 09/04/2015 03/02/2020 HCAP (healthcare-associated pneumonia) 08/19/2015 03/12/2022 Tremor 07/22/2015 03/12/2022 Urinary tract infection, site not specified 07/03/2015 03/02/2020 Overview (12/02/2016): Diagnosis updated by automated process. Provider to review and confirm. 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 Provider to review and confirm. Pre-transplant evaluation fo r kidney and pancreas transplant 01/21/2014 01/05/2016 Administration of long-term prophylactic antibiotics 01/21/2014 03/12/2022 Pre-operative cardiovascular examination 08/31/2013 03/02/2020 Hypertensive urgency 06/09/2013 021 Advance directive discussed with patient 09/20/2012 11/18/2017 Overview (07/22/2015): Overview: Patient has identified Health Care Agent(s): No-spokes person would be [place], Add Health Care Agents: No Patient has Advance Care Plan Documents (Health Care Directive, POLST): No, referral made to Palliative Care.Order placed for ACP Session Patient has identified Specific Treatment Preferences: No Specific limits to treatment preferences NOT identified: ASSUME FULL TREATMENT. Last Assessment & Plan: HCD mailed to patient. Yanet Guerrero RN Transition Research Worker Encyclopedia [phone] 09/24/2012 Acute on chronic diastolic heart failure 09/20/2012 03/02/2020 Overview (10/25/2015): Overview: CHF Core Measures Left Ventricular Systolic Function - Working EF Last Evaluation Date of Study: 05/2012 LVEF:65% Determination Method:echo, grade 2 diastolic dysfunction Patient taking TATIANA INHIBITOR or ARB (for LVSF <40%): yes Smoking Status & Cessation Counseling Status: [facility] reports that she quit smoking about 21 years ago. She has never used smokeless tobacco. No data found. Overview: CHF Core Measures Left Ventricular Systolic Function - Working EF Last Evaluation Date of Study: 05/2012 LVEF:65% Determination Method:echo, grade 2 diastolic dysfunction Patient taking TATIANA INHIBITOR or ARB (for LVSF <40%): yes Smoking Status & Cessation Counseling Status: [facility] reports that she quit smoking about 21 years ago. She has never used smokeless tobacco. No data found. Encounter for palliative care 09/20/2012 03/02/2020 Overview (07/22/2015): Overview: Introduced to ACP and manage symptoms Bilateral pleural effusion 09/20/2012 0 03/12/2022 End-stage renal disease 05/11/201203/2020 End stage kidney disease 04/30/201207/2015 Overview (06/25/2012): Dialysis initiated 04/30/2012 Chest pain 04/26/2012 03/02/2020 Overview (11/03/2012): Problem list name updated by automated process. Provider to review and confirm Imo Update utility Chronic renal failure 04/12/20122012 Wheezing 04/08/2012 07/15/2012 Troponin level elevated 04/08/2012 01/0 03/2020 Dyspnea 04/08/2012 07/15/2012 Cough 04/08/2012 07/15/2012 Apnea 03/27/2012 03/12/2022 Bradycardia 03/27/2012 03/12/2022 Generalized edema 03/25/2012 03/02/2020 Anemia of chronic disorder 03/25/2012 0 03/02/2020 Anxiety 03/25/2012 03/12/2022 Depression 03/25/2012 03/12/2022 Hypertension 03/25/2012 03/02/2020 Pulmonary embolism 03/25/2012 3 Electromechanical dissociation 03/25/2012 03/12/2022 Nephrotic syndrome 03/25/2012 1 DVT, bilateral lower limbs 03/25/2012 0 03/02/2020 PEA (Pulseless electrical activity) 03/25/2012 03/12/2022 DM type 1 causing complication 03/25/2012 03/02/2020 Anasarca 03/25/2012 03/02/2020 Hyperkalemia 03/19/2012 01/05/2016 Deep vein thrombosis (DVT) 03/05/2012 0 03/12/2022 Cardiac arrest 01/31/2012 03/12/2022 Overview (07/15/2012): Jasper secondary to PE Diabetes mellitus with nephropathy 12/02/2011 03/12/2022 Overview (12/02/2011): Assoc Nephrotic range proteinuria. Anemia in chronic renal disease 12/02/2011 03/02/2020 Overview (12/01/2014): Possibly related to iron deficiency. Problem list name updated by automated process. Provider to review Acute on chronic renal failure 12/02/2011 07/15/2012 Back pain 11/29/2011 03/12/2022 Overview (12/02/2011): Thought due to Neuropathy. Improved with multimodal therapy. Hypertensive urgency 11/29/2011 013 Fever 11/29/2011 07/15/2012 Overview (12/01/2014): Problem list name updated by automated process. Provider to review Cellulitis 08/31/2011 07/15/2012 Hyperglycemia 08/31/2011 03/02/2020 S/P hysterectomy 12/10/2010 03/12/2022 Dehydration 12/10/2010 07/15/2012 DKA (diabetic ketoacidoses) 12/10/2010 03/02/2020 Overview (11/30/2020): Replacing diagnoses that were inactivated after the 11/30/2020 regulatory import. History of ankle fracture 12/10/2010 Cataract extraction status of left eye 12/10/2010 03/12/2022 Cataract extraction status of right eye 12/10/2010 03/12/2022 Nausea and vomiting in adult 12/09/2010 03/02/2020 Overview (11/19/2017): Thought due to initiation of Azathioprine (Imuran) Multiple-type hyperlipidemia 06/10/2010 03/02/2020 Autonomic failure 05/15/2010 12/20/2022 Restless legs syndrome 05/15/201003/12 Mixed anxiety depressive disorder 08/17/2009 03/12/2022 Type 1 diabetes mellitus 08/17/200903/2020 Vision disorder 08/17/2009 03/02/2020 Overview (07/22/2015): Overview: lazy eye L Encounter for general adult medical examination without abnormal findings 08/17/2009 Overview (07/22/2015): Overview: Last cpx-3/ Last mammogram-06/13 Last lipid 03/11, LDL-188 Last colonoscopy-03/06 Routine health maintenance 08/17/2009 0 03/02/2020 Overview (07/30/2017): Overview: Last cpx-3/09 Last mammogram-06/13 Last lipid 03/11, LDL-188 Last colonoscopy-03/19 Diabetes mellitus 03/02/2020 Overview (06/25/2012): age at onset 26 Neuromuscular disorder 03/12 Hypertension, renal 03/02/19 21 Hypothyroidism 03/12/2022 Dialysis patient 01/05/2016 Encounters Date Type Department Care Team Description 10/11/2024 [facility] Medical Advice [address] [place] [address] Keyana Capps, RN 10/10/2024 3:00 PM CDT Virtual Visit [facility] [address] [facility] [place] [address] Delvin Lopez MD Johnson, Danielle Rose Adjustment disorder with mixed anxiety and depressed mood (Primary Dx); Depression, unspecified depression type 10/10/2024 [facility] Medical Advice [facility] [address] [facility] [place] [phone] Edith Brito 10/10/2024 [facility] Medical Advice [facility] [address] [phone] Susan Pelletier, RN EBV (Patrick-Lacy virus) viremia 10/10/2024 Telephone [facility] [address] [phone] Susan Pelletier RN 10/07/2024 [facility] Medical Advice [facility] [address] [place] [address] [phone] Valeri Munguia LPN EBV (Patrick-Lacy virus) viremia 10/07/2024 Refill [facility] [address] [phone] Senait Flores RN 10/06/2024 4:00 PM CDT Virtual Visit [facility] [address] [phone] Conrado Evans MD El Rifai, Rasha, MD 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); EBV (Patrick-Lacy virus) viremia; Depression, unspecified depression type; History of anemia due to CKD; Persistent proteinuria; Stage 3b chronic kidney disease (H); Aftercare following organ transplant; Immunosuppression; Pancreas transplanted (H); Neurogenic orthostatic hypotension (H) 10/05/2024 Orders Only [facility] [address] [place] [phone] Outside, Provider 10/04/2024 8:22 AM CDT - 10/04/2024 1:40 PM CDT Hospital Encounter [facility] [address] [place] [phone] Radha Jolly MD Kidney replaced by transplant; Aftercare following organ transplant; History of anemia due to CKD Discharge Disposition: Home or Self Care 10/04/2024 Results Follow-Up [facility] [address] [place] [address] [phone] Susan Pelletier, RN Dx: EBV (Patrick-Lacy virus) viremia 10/04/2024 Results Follow-Up [facility] [address] [place] [address] [phone] Susan Pelletier RN Dx: EBV (Patrick-Lacy virus) viremia 10/04/2024 Refill [facility] [address] [place] [address] [phone] Conrado Evans MD Medication Refill 09/26/2024 MyC Medical Advice [facility] [address] [place] [phone] Chelsey Raya RN 09/23/2024 Orders Only [facility] [address] [place] [phone] Katie Atkinson PA-C 09/23/2024 Orders Only [facility] [address] [place] [address] [phone] Susan Pelletier RN Aftercare following organ transplant (Primary Dx); EBV (Patrick-Lacy virus) viremia; Kidney replaced by transplant 09/23/2024 Telephone [facility] [address] [place] [address] [phone] Susan Pelletier RN pt call 09/19/2024 2:00 PM CDT Lab [facility] [address] [place] [address] [facility] [place] [phone] Conrado Evans MD Kidney replaced by transplant; Aftercare following organ transplant; Proteinuria 09/19/2024 Travel 09/08/2024 MyC Medical Advice [facility] [address] [place] [address] [phone] Sandra Rhodes, RN EBV (Patrick-Lacy virus) viremia 09/08/2024 Documentation Only [facility] [address] [place] [phone] Sandra Rhodes, SONIA Aftercare following organ transplant (Primary Dx); Kidney replaced by transplant; Proteinuria 09/07/2024 9:30 AM CDT Lab [facility] [address] [place] [address] [facility] [place] [phone] Conrado Evans MD EBV (Patrick-Lacy virus) viremia; Pancreas transplanted (H); Kidney replaced by transplant; Type 1 diabetes mellitus with diabetic polyneuropathy (H) 09/07/2024 Refill [facility] [address] [place] [address] [phone] Conrado Evans MD Medication Refill 09/07/2024 Results Follow-Up [facility] [address] [phone] Susan Pelletier RN Dx: 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) 09/07/2024 Travel 08/26/2024 Refill [facility] [address] [place] [phone] Conrado Evans MD Medication Refill 08/24/2024 Refill [facility] [address] [place] [address] [phone] Conrado Evans MD Medication Refill from Last 3 Months Immunizations Immunization Administration Dates Next Due HIB (PRP-T) 10/03/2015 Influenza (H1N1) 01/11/2009 Influenza (IIV3) PF 04/30/2012,12/02/2006,1998 Influenza Vaccine 18-64 (Flublok) 02/12/2021 Pneumo Conj 13-V (2010&after) 10/03/2015 Pneumococcal (PCV 7) 12/16/2004 Pneumococcal 23 valent 07/07/2012,10/02/2011 TDAP Vaccine (Adacel) 05/22/2014,09/23/2002 Family History Medical History Relation Comments Hypertension Father Rheumatoid Arthritis Mother Diabetes Paternal Grandfather Relation Status Comments Brother Alive Father Alive Mother (Age 66) septic shock Paternal Grandfather Social History Tobacco Use Types Packs/Day Years Used Date Smoking Tobacco: Former Cigarettes Passive Smoke Exposure: Never Smokeless Tobacco: Never Tobacco Cessation:Counseling Given: Not [...] on file 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 Gender Identity Not on file Sexual Orientation Not on file Occupation Industry Job Start Date Job End Date Not on file Not on file Not on file Not on file Last Filed Vital Signs [...] oz) 10/04/2024 8:42 A M CDT Height 167.6 cm (5' 6) 11/16/2023 12:37 PM CDT Body Mass Index 19.54 11/16/2023 12:37 PM CDT Plan of Treatment Upcoming Encounters Date Type Department Care Team (Late st Contact Info) Description 10/25/2024 10:00 AM CDT Virtual Visit [facility] [address] [place] [address] Edith Brito 10/26/2024 8:30 AM CDT Lab [facility] [address] [place] [address] Conrado Evans MD 717 [facility] 353 [facility] [address] [place], [place] [address] Health Maintenance Due Date Last Done Comments ANNUAL REVIEW OF HM ORDERS 1965 CT COLONOGRAPHY 1965 DEPRESSION ACTION PLAN 1965 DIABETIC FOOT EXAM 1965 FLEX SIG 1965 sDNA (Cologuard) 1965 MEDICARE ANNUAL WELLNESS VISIT 12/22/1983 HEPATITIS B VACCINE (1 of 3 - 19+ 3-dose series) 1984 ZOSTER VACCINE (1 of 2) 1984 PAP 1986 FIT 12/05/2017 12/05/2016, 11/0 07/2015, 12/31/2015, Additional history exists URINE DRUG SCREEN 01/27/2019 01/27/2018 PNEUMOCOCCAL VACCINE 50+ YEARS (4 of 4 - PCV20 or PCV21) 10/02/2020 10/03/2015, 07/07/2012, 10/02/2011 EYE EXAM 04/06/2021 04/06/2020, 07/31, 08/14/2017, Additional history exists ADVANCE CARE PLANNING 01/28/2023 01/28/2018 , 11/18/2017, 11/18/2017 COVID-19 VACCINE ( season) 2023 02/12/2021, 06/09/2020, 05/19/2020 INFLUENZA VACCINE (#1) 2024 , 01/21/2022, 02/12/2021, Additional history exists A1C 03/10/2025 09/07/2024, 1004/2022, 02/12/2021, Additional history exists LUNG CANCER SCREENING 03/16/2025 03/16/2024 , 06/09/2023, 02/07/2023, Additional history exists MICROALBUMIN 03/22/2025 09/19/2024, 08/04/2019 LIPID 09/07/2025 09/07/2024, 04/2022, 03/24/2022, Additional history exists BMP 10/04/2025 10/04/2024, 08/31, 09/07/2024, Additional history exists HEMOGLOBIN 10/04/2025 10/04/2024, 08/31, 09/07/2024, Additional history exists PHQ-9 10/10/2025 10/10/2024, 03/02, 04/05/2019, Additional history exists MAMMO SCREENING 08/24/2026 08/24/2024, 08/01, 11/15/2013 DTAP/TDAP/TD VACCINE (4 - Td or Tdap) 04/08/2029 04/08/2019, 05/22/2014, 09/23/2002, Additional history exists COLONOSCOPY 06/10/2033 06/11/2023, 09/30, 08/18/2017, Additional history exists COLORECTAL CANCER SCREENING 06/10/2033 PARATHYROID Completed 01/13/2016, 01/01, 04/11/2012 HEPATITIS C SCREENING Completed 07/12/2023 , 04/15/2023, 09/18/2022, Additional history exists HIV SCREENING Completed 07/12/2023, 08/31, 01/08/2016, Additional history exists PHOSPHORUS Completed 07/20/2023, 06/30, 07/18/2023, Additional history exists ALK PHOS Completed 09/07/2024, 06/2023, 09/09/2023, Additional history exists URINALYSIS Completed 10/04/2024, 08/31, 07/19/2023, Additional history exists HPV VACCINE (No Doses Required) Completed MENINGITIS VACCINE Aged Out No longer eligible based on patient's age to complete this topic Medical Devices Implanted Type Area Family Resource Coordinator Device Identifier Shelf Expiration Date Model / Serial / Lot Mesh Symbotex Composite Stex 20cm X 15cm [id number] Implanted:Qty: 1 on 05/24/2014 by Anoop Garcia MD at [facility] N/A: Abdomen COVIDIEN 07/30/2018 [id number] / / [id number] Procedures Procedure Name Priority Date/Time Associated Diagnosis Comments HLA RESULT REPORT 10/05/2024 5:0 9 PM CDT URINE CULTURE STAT 10/04/2024 1:39 PM CDT URINALYSIS MACROSCOPIC STAT 10/04/2024 1:39 PM CDT PROTEIN RANDOM URINE STAT 10/04/2024 1:39 PM CDT IR PROCEDURE NOTE Routine 10/04/2024 10:39 AM CDT IR RENAL BIOPSY LEFT Priority: 1-2 Weeks 10/04/2024 10:37 AM CDT Kidney replaced by transplant Aftercare following organ transplant SURGICAL PATHOLOGY EXAM STAT 10/04/2024 10:32 AM CDT PRA DONOR SPECIFIC ANTIBODY STAT 10/04/2024 9:01 AM CDT CBC WITH PLATELETS & DIFFERENTIAL STAT 10/04/2024 9:01 AM CDT BK VIRUS QUANTITATIVE, PCR STAT 10/04/2024 9:01 AM CDT IRON AND IRON BINDING CAPACITY Add-On 10/04/2024 9:01 AM CDT History of anemia due to CKD HLA JAIRO, CPRA Routine 10/04/2024 9:01 AM CDT HLA JAIRO CLASS II, SINGLE ANTIGEN Routine 10/04/2024 9:01 AM CDT HLA JAIRO CLASS I, SINGLE ANTIGEN Routine 10/04/2024 9:01 AM CDT HLA DONOR SPECIFIC ANTIBODY Routine 10/04/2024 9:01 AM CDT PRA DONOR SPECIFIC ANTIBODY STAT 10/04/2024 9:01 AM CDT CBC WITH PLATELETS AND DIFFERENTIAL STAT 10/04/2024 9:01 AM CDT BASIC METABOLIC PANEL STAT 10/04/2024 9:01 AM CDT INR STAT 10/04/2024 9:01 AM CDT PROTEIN ELECTROPHORESIS Routine 09/19/2024 2:16 PM CDT Kidney replaced by transplant Aftercare following organ transplant Proteinuria PROTEIN ELECTROPHORESIS, SERUM Routine 09/19/2024 2:16 PM [...] by transplant Aftercare following organ transplant Proteinuria PROTEIN RANDOM URINE Routine 09/19/2024 2:16 PM CDT Kidney replaced by transplant Aftercare following organ transplant Proteinuria SIROLIMUS BY TANDEM MASS SPECTROMETRY Routine 09/19/2024 2:16 PM CDT Kidney replaced by transplant LIPASE Routine 09/19/2024 2:16 PM CDT Kidney replaced by transplant TACROLIMUS BY TANDEM MASS SPECTROMETRY Routine 09/19/2024 2:16 PM CDT Kidney replaced by transplant CBC WITH PLATELETS Routine 09/19/2024 2: 16 PM CDT Kidney replaced by transplant BASIC METABOLIC PANEL Routine 09/19/2024 2:16 PM CDT Kidney replaced by transplant AMYLASE Routine 09/19/2024 2:16 PM CDT Kidney replaced by transplant PROTEIN RANDOM URINE Routine 09/07/2024 9:52 AM CDT 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) Kidney replaced by transplant PATRICK LACY VIRUS QUANTITATIVE PCR, PLASMA Routine 09/07/2024 9:51 AM CDT EBV (Patrick-Lacy virus) viremia BASIC METABOLIC PANEL Add-On 09/07/2024 9:51 AM CDT Kidney replaced by transplant CBC WITH PLATELETS Routine 09/07/2024 9: 51 AM CDT 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) Kidney replaced by transplant AMYLASE Routine 09/07/2024 9:51 AM CDT 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) Kidney replaced by transplant TACROLIMUS BY TANDEM MASS SPECTROMETRY Routine 09/07/2024 [...] 1 diabetes mellitus with diabetic polyneuropathy (H) LIPID REFLEX TO DIRECT LDL PANEL Routine 09/07/2024 9:51 AM CDT 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) Kidney replaced by transplant HEPATIC FUNCTION PANEL Routine 09/07/2024 9:51 AM CDT 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) Kidney replaced by transplant PHOSPHORUS Routine 07/20/2023 6:[address] CHEST PULMONARY EMBOLISM W CONTRAST STAT 04/19/2020 2:32 PM AUTO TRAVEL COUNSELOR DRUG ABUSE SCREEN 6 CHEM DEP URINE ([facility]) STAT 01/27/2018 8:17 AM AUTO TRAVEL COUNSELOR Respiratory arrest (H) COLONOSCOPY Routine 08/18/2017 1:52 PM CDT EYE EXAM - HIM SCAN 08/14/2017 12:00 AM CDT OCCULT BLOOD STOOL STAT 12/05/2016 11:38 AM CDT PARATHYROID HORMONE INTACT Routine 01/13/2016 6:55 AM AUTO TRAVEL COUNSELOR Other autoimmune hemolytic anemias (H) HIV-1 RNA QUANTITATIVE Routine 01/08/2016 8:15 AM AUTO TRAVEL COUNSELOR Other autoimmune hemolytic anemias (H) HEPATITIS C ANTIBODY Routine 01/05/2016 5:54 AM CDT Other autoimmune hemolytic anemias (H) MAMMOGRAM - HIM SCAN 11/15/2013 12:00 AM CDT from Last 3 Months or Most Recently Relevant to Health Maintenance Results * HLA Result Report (10/05/2024 5:09 PM CDT) us Provider Outside LAB - IMMUNOLOGY ORDERABLES Fin al Result * (ABNORMAL) Urinalysis Macroscopic (10/04/2024 1:39 PM CDT) Color Urine Light Yellow Colorless, Straw, Light Yellow, Yellow 10/04/2024 2:01 PM CDT [facility] Appearance Urine Clear Clear 10/05/19 25 2:01 PM CDT [facility] Glucose Urine Negative Negative mg/dL 10/04/2024 2:01 PM CDT [facility] Bilirubin Urine Negative Negative 2:01 PM CDT [facility] Ketones Urine Negative Negative mg/dL 10/04/2024 2:01 PM CDT [facility] LABORATORY Specific [place] Urine 1.016 1.003 - 1.035 10/04/2024 2:01 [...] URINE ORDERABLES F inal Result UU LABORATORY [facility] Core Lab 500 [facility] J Building, Room 3[address] [place] [address] * (ABNORMAL) Protein random urine (10/04/2024 1:39 PM CDT) Only the most recent of3 resultswithin the time period is included. Total Protein Urine mg/dL 174.0 mg/dL 10/04/2024 [...] ORDERABLES F inal Result Performing Organization Address City/[facility]/ZIP Co de Phone Number UU LABORATORY [facility] [place] Core Lab 500 [facility], Room [address] * Urine Culture (10/04/2024 1:39 PM CDT) Culture <10,000 CFU/mL Mixture of Urogenital Lisa 10/05/2024 10:37 AM CDT UU IDD LABORATORY Urine MID-STREAM URINE SPECIMEN / Unknown Non-blood Collection / Unknown 10/04/2024 1:39 PM CDT 10/04/2024 1:46 PM CDT us Conrado Evans MD LAB - MICRO GENERAL ORDE RABLES Final Result UU IDD LABORATORY [facility] Inf. Diseases Diag. Lab 500 [facility], [address] * IR Procedure Note (10/04/2024 10:39 AM CDT) Narrative Gilberto Nicole PA-C - 10/04/2024 10:39 AM CDT Gilberto Nicole PA-C 10/04/2024 10:[address] [facility] Procedure: IR Procedure Note Date/Time: 10/04/2024 10:39 [...] the procedure a time out was called [place] Protocol: the Joint Commission [place] Protocol was followed Preparation: Patient was prepped [...] IR staff supervision. SEDATION TIME: 10 minutes [id number] DESCRIPTION: The patient's low abdomen was prepped [...] IR staff supervision. SEDATION TIME: 10 minutes [id number] DESCRIPTION: The patient's low abdomen was prepped [...] adequacy GILBERTO NICOLE PA-C Conrado Evans MD [facility] [place] ORDERABLES Final Result * Surgical pathology exam - Transplant Renal (10/04/2024 10:32 AM CDT) Case Report Surgical Pathology Report Case: [id number] Authorizing Provider: Conrado Evans MD Collected: 10/04/2024 10:32 AM Ordering Location: [facility] Received: 10/04/2024 10:44 AM [address] [place] Pathologist: Lucio Forman MD Specimen: Kidney, Transplanted, [...] light microscopy, immunofluorescence, and electron microscopy. ([facility] The specimen is received in formalin with [...] for electron microscopic studies. 10/12/2024 12:23 PM T [facility]ATORY Microscopic Description LIGHT MICROSCOPY: Sections of [...] component of this testing was completed at [facility]. Stain controls for all stains resulted within this report have been reviewed and show appropriate reactivity. 10/12/2024 12:23 PM CDT U LABORATORY Case Images 10/12/2024 12:23 PM CDT SPECIALTY LABS Tissue STRUCTURE OF TRANSPLANTED KIDNEY / Unknown Non-blood Collection / Unknown 10/04/2024 10:32 AM CDT 10/04/2024 10:44 AM CDT Comment:STAT/DICKERSON processing required Conrado Evans MD LAB - BEAKER AP Edited R esult - Final SPECIALTY LABS UM Specialty Lab 500 [facility], Room [address] [address], [facility] LABORATORY [facility] [place] Core Lab 500 [facility], Room [address] [phone] * PRA Donor Specific Antibody (10/04/2024 9:01 AM CDT) Blood BLOOD SPECIMEN / Unknown Venipuncture / Unknown 10/04/2024 9:01 AM CDT 10/04/2024 9:07 AM CDT Conrado Evans MD LAB - IMMUNOLOGY ORDERAB LES Final Result HLA LABORATORY Immunology/Histocomp atability CLIA: [id number] [facility] 500 [facility] Unit Building, Room [address] [phone] * HLA Donor Specific Antibody (10/04/2024 9:01 [...] Result UU HLA LABORATORY Immunology/Histocomp atability CLIA: [id number] [facility] [address], Room [address] [phone] * HLA Jairo, CPRA (10/04/2024 9:01 AM CDT) Pathologist [facility] UNOS CPRA 94 10/05/2024 5:09 PM CDT UU HLA LABORATORY UNACCEPTABLE ANTIGENS A:23 24 25 32 34 66 B:7 13 27 37 38 44 45 49 51 52 53 57 58 60 [address]:7 9 10 12 DQ:2 10/05/2024 5:09 PM CDT UU HLA LABORATORY Blood BLOOD SPECIMEN / Unknown Venipuncture / Unknown 10/04/2024 9:01 AM CDT 10/04/2024 9:07 AM CDT Conrado Evans MD LAB - IMMUNOLOGY ORDERAB LES Final Result UU HLA LABORATORY Immunology/Histocomp atability CLIA: [id number] [facility] 500 [facility] SE [address] Building, Room [address] [place] [address] * HLA Jairo Class II, Single Antigen [...] MFI > 3,000. Mod-risk, MFI 500-3,000. For IMM: Strong risk >_5000mfi, Moderate Risk 2000-4999mfi, Weak Risk 500-1999mfi Blood BLOOD SPECIMEN / Unknown Venipuncture / Unknown 10/04/2024 9:01 AM CDT 10/04/2024 9:07 AM CDT us Conrado Evans MD LAB - IMMUNOLOGY ORDERAB LES Final Result [facility]U HLA LABORATORY Immunology/Histocomp atability CLIA: [id number] [facility] [address] Building, Room [address] [phone] * HLA Jairo Class I, Single Antigen (10/04/2024 9:01 AM CDT) SA 1 TEST METHOD SA EDTA FCS 10/05/2024 5:09 PM CDT UU HLA LABORATORY SA 1 CELL Class I 10/05/2024 5:09 PM CDT [facility] HLA LABORATORY 1 HI RISK JAIRO None 5:09 PM CDT U[facility] HLA LABORATORY 1 MOD RISK JAIRO Cw:18 10/05/2024 5:09 PM CDT UU HLA LABORATORY 1 COMMENTS HLA PRA Test performed by [...] MFI > 3,000. Mod-risk, MFI 500-3,000. For IMM: Strong risk >_5000mfi, Moderate Risk 2000-4999mfi, Weak Risk 500-1999mfi Blood BLOOD SPECIMEN / Unknown Venipuncture / Unknown 10/04/2024 9:01 AM CDT 10/04/2024 9:07 AM CDT Conrado Evans MD LAB - IMMUNOLOGY ORDERAB LES Final Result UU HLA LABORATORY Immunology/Histocomp atability CLIA: [id number] [facility] [address] Building, [address] [place] [address], [facility] [phone] * (ABNORMAL) CBC with platelets and differential (10/04/2024 9:01 AM CDT) WBC Count 5.6 4.0 - 11.0 10e3/uL [...] 9:01 AM CDT 10/04/2024 9:08 AM CDT us Conrado Evans MD LAB - BLOOD ORDERABLES F inal Result LABORATORY [facility] [place] Core Lab 500 [facility], Room [address] * INR (10/04/2024 9:01 AM CDT) INR 1.04 0.85 - 1.15 10/04/2024 9:47 AM CDT UU LABORATORY PT 13.6 11.8 - 14.8 Seconds 10/04/2024 9:47 AM CDT [facility] LABORATORY Blood BLOOD SPECIMEN / Unknown Venipuncture / Unknown 10/04/2024 9:01 AM CDT 10/04/2024 9:14 AM CDT us Lakesha Cavanaugh PA-C LAB - BLOOD ORDERABLES Fi nal Result LABORATORY [facility] [place] Core Lab 500 [facility], Room [address] * (ABNORMAL) [employer] Binding Capacity [...] BLOOD ORDERABLES Final R esult UU LABORATORY [facility] [place] [facility] Lab 500 [facility] J [facility], Room [address] [place] [phone] * BK Virus Quantitative, PCR (10/04/2024 9:01 AM CDT) Pathologist [facility] BK Virus DNA IU/mL Not Detected Not [...] DNA. Titer results are reported in IU/mL. us Conrado Evans MD LAB - MICRO GENERAL KEIKO BASSETT Final Result UU IDD LABORATORY [facility] Inf. Diseases Diag. Lab 500 [facility], [address] [place] [address] * (ABNORMAL) Basic metabolic panel (10/04/2024 9:01 AM CDT) Only the most recent of3 resultswithin the time period is included. Sodium 143 135 - 145 mmol/L 10/04/2024 [...] 9:01 AM CDT 10/04/2024 9:12 AM CDT Conrado Evans MD LAB - BLOOD ORDERABLES F inal Result [facility] LABORATORY [facility] [place] [facility] Lab 500 [facility], Room [address] [place] [address] * (ABNORMAL) Protein Electrophoresis, Serum (09/19/2024 2:16 [...] SPECIALTY CORE/PROT/E NDO Signout Location if Remote [address] 09/20/2024 4:43 PM CDT SPECIALTY LABS Blood STRUCTURE OF LEFT UPPER LIMB / Unknown Venipuncture / Unknown 09/19/2024 2:16 PM CDT 09/19/2024 2:27 PM CDT us Conrado Evans MD LAB - BLOOD ORDERABLES F inal Result UM SPECIALTY CORE/PROT/ENDO UM Specialty Core/Prot/Endo 500 [facility] SE [address] Building, Room [address] [place], [place] [phone] [place] [address] SPECIALTY LABS Specialty Lab [address] [facility] [address] Building, Room [address] [place] [address] * (ABNORMAL) Total Protein, Serum for ELP (09/19/2024 2:16 PM CDT) Total Protein Serum for ELP 6.0(L) 6.4 - 8.3 g/dL 09/19/2024 3:06 PM CDT LABORATORY Blood STRUCTURE OF LEFT UPPER LIMB / Unknown Venipuncture / Unknown 09/19/2024 2:16 PM CDT 09/19/2024 2:27 PM CDT us Conrado Evans MD LAB - BLOOD ORDERABLES F inal Result LABORATORY [facility] Acute Care Lab [address] [facility] Lab (1st floor, no room number) [place] [address] * (ABNORMAL) [place] and lambda light chain (09/19/2024 2:16 PM CDT) [place] Free Light Chains 9.59(H) 0.33 - 1.94 mg/dL 09/20/2024 8:45 AM CDT SPECIALTY CORE/PROT/ENDO Lambda Free Light Chains 7.83(H) 0.57 - 2.63 mg/dL 09/20/2024 8:45 AM CDT SPECIALTY CORE/PROT/ENDO [place] /Lambda Ratio 1.22 0.26 - 1.65 09/20/2024 [...] UM SPECIALTY CORE/PROT/ENDO UM Specialty Core/Prot/Endo 500 [facility] [address] J [facility], Room [address] [place] [address] * (ABNORMAL) UA with Microscopic reflex to [...] 09/19/2024 2:47 PM CDT RH LABORATORY Specific [place] Urine 1.020 1.003 - 1.035 09/19/2024 2:47 [...] - URINE ORDERABLES F inal Result LABORATORY [facility] Acute Care Lab [address] Lab (1st floor, no room number) [place] [address], [facility] * Tacrolimus by Tandem Mass Spectrometry (09/19/2024 2:16 PM CDT) Only the most recent of2 resultswithin the time period is included. Tacrolimus by Tandem Mass Spectrometry 6.4 5.0 [...] and its performance characteristics determined by the [facility], Special Chemistry Laboratory. It has not been cleared or approved by the FDA. The laboratory is regulated under CLIA as qualified to perform high-complexity testing. This test is used for clinical purposes. It should not be regarded as investigational or for research. Conrado Evans MD LAB - BLOOD ORDERABLES F inal Result UM SPECIAL DRUG/BGEN UM Special Drug/BGEN 500 [facility], [address] [phone] * (ABNORMAL) Sirolimus by Tandem Mass Spectrometry (09/19/2024 2:16 PM CDT) Only the most recent of2 resultswithin the time period is included. Sirolimus by Tandem Mass Spectrometry 4.8(L) 5.0 [...] and its performance characteristics determined by the [facility], Special Chemistry Laboratory. It has not been cleared or approved by the FDA. The laboratory is regulated under CLIA as qualified to perform high-complexity testing. This test is used for clinical purposes. It should not be regarded as investigational or for research. Conrado Evans MD LAB - BLOOD ORDERABLES F inal Result UM SPECIAL DRUG/BGEN UM Special Drug/BGEN 500 [facility], Room [address] [place] [phone] * (ABNORMAL) Albumin Random Urine Quantitative with [...] control, and institution of therapy with an lhvaejlkncq-neppjjqdlb-ghnypv (TATIANA) inhibitor (if the patient can tolerate it). Urine URINE SPECIMEN OBTAINED BY CLEAN CATCH PROCEDURE / Unknown Non-blood Collection / Unknown 09/19/2024 2:16 PM CDT 09/19/2024 2:26 PM CDT Conrado Evans MD LAB - URINE ORDERABLES F inal Result UU LABORATORY [facility] [place] Core Lab 500 [facility] J [facility], Room [address] [place] [address] * Lipase (09/19/2024 2:16 PM CDT) Only the most recent of2 resultswithin the time period is included. Lipase 35 13 - 60 U/L 09/19/2024 2:59 PM CDT LABORATORY Blood STRUCTURE OF LEFT UPPER LIMB / Unknown Venipuncture / Unknown 09/19/2024 2:16 PM CDT 09/19/2024 2:27 PM CDT us Conrado Evans MD LAB - BLOOD ORDERABLES F inal Result Performing Organization Address City/[facility]/ZIP Co de Phone Number [facility] Lab [address] Lab (1st floor, no room number) [place] [phone] * Amylase (09/19/2024 2:16 PM CDT) Only the most recent of2 resultswithin the time period is included. Amylase 77 28 - 100 U/L 09/19/2024 2:59 PM CDT LABORATORY Blood STRUCTURE OF LEFT UPPER LIMB / Unknown Venipuncture / Unknown 09/19/2024 2:16 PM CDT 09/19/2024 2:27 PM CDT Conrado Evans MD LAB - BLOOD ORDERABLES F inal Result [facility] Lab [address] Lab (1st floor, no room number) [place] [address], [facility] * (ABNORMAL) CBC with platelets (09/19/2024 2:16 PM CDT) Only the most recent of2 resultswithin the time period is included. WBC Count 5.8 4.0 - 11.0 10e3/uL [...] BLOOD ORDERABLES F inal Result RH LABORATORY [facility] Acute Care Lab [address] Lab (1st floor, no room number) [place] [address], [facility] * Patrick Lacy Virus Quantitative PCR, Plasma [...] (IU)/mL. Conrado Evans MD LAB - MICRO [facility] KEIKO BASSETT Final Result UU IDD LABORATORY [facility] Inf. Diseases Diag. Lab 500 [facility], [address] [place] [phone] * (ABNORMAL) Lipid panel reflex to direct [...] BLOOD ORDERABLES F inal Result UU LABORATORY [facility] [place] Core Lab 500 [facility], Room [address] [place] [address], [facility] LABORATORY [facility] Acute [facility] Lab [address] [facility] (1st floor, no room number) [place] [address], [facility] * (ABNORMAL) Hepatic panel (09/07/2024 9:51 AM CDT) Protein Total 6.3(L) 6.4 - 8.3 g/dL 09/07/2024 10:21 AM CDT RH LABORATORY Albumin 3.4(L) 3.5 - 5.2 g/dL 09/07/2024 10:21 AM CDT LABORATORY Bilirubin Total 0.2 <=1.2 mg/dL 09/07/2024 [...] LAB - BLOOD ORDERABLES F inal Result Performing Organization Address City/[facility]/ZIP Co de Phone Number [facility] Care Lab [address] [employer] Lab (1st floor, no room number) [place] [phone] * Hemoglobin A1c (09/07/2024 9:51 AM CDT) [...] LAB - BLOOD ORDERABLES F inal Result [facility] Acute Care Lab [address] Lab (1st floor, no room number) [place] [address] * Phosphorus (07/20/2023 6:37 AM CDT) Phosphorus 3.0 2.5 - 4.5 mg/dL 07/20/2023 7:26 AM CDT UU LABORATORY Blood STRUCTURE OF RIGHT HAND / Unknown Venipuncture / Unknown 07/20/2023 6:37 AM CDT 07/20/2023 6:53 AM CDT Pedro Sy MD LAB - BLOOD ORDERABLES Final Result UU LABORATORY [facility] [place] Core Lab 500 [facility] [address] Building, Room [address] [phone], [facility] * CT Chest Pulmonary Embolism w Contrast (04/19/2020 2:32 PM AUTO TRAVEL COUNSELOR) Anatomical Region Laterality Modality Chest, SUBRAD CT BODY, UMP CT CHEST Computed Tomography Impressions 04/19/2020 3:05 PM AUTO TRAVEL COUNSELOR IMPRESSION: 1. No evidence for pulmonary embolism or acute thoracic aortic abnormality. 2. New or progressed peripheral regions of irregular consolidation compared to 09/27/2019. This may relate to an infectious, or inflammatory etiology including pneumonia. Neoplastic etiology not entirely excluded. Recommend short interval follow-up CT chest in 1-3 months for surveillance. 3. Coronary artery calcifications. 4. Diffuse esophageal distention again noted. Correlate with gastroesophageal reflux. There is some wall prominence of the distal esophagus with neoplasm not excluded. 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 TECHNIQUE: CT angiogram chest during arterial phase injection IV contrast. 2D and 3D MIP reconstructions were performed by the system technologist. Dose reduction techniques were used. CONTRAST: 64 mL Isovue-370 COMPARISON: CT chest 09/27/2019. FINDINGS: ANGIOGRAM CHEST: Pulmonary arteries are normal caliber and negative for pulmonary emboli. Thoracic aorta is negative for dissection. Coronary artery calcifications. LUNGS AND PLEURA: There are bilateral patchy peripheral areas of somewhat nodular and irregular consolidation. Some of these regions appear new or progressed. For example, at the left lower lobe focal consolidation is 2 cm, new at this position, series 9 image 183. There are other peripheral areas of nodularity at the right middle lobe, image 150, increasing at the posterolateral right upper lobe, image 77. No effusions. No pneumothorax. MEDIASTINUM/AXILLAE: Esophageal distention again noted diffusely. There may be some mild wall prominence of the distal esophagus that grossly appears stable. Left chest Port-A-Cath. No enlarged lymph nodes by size. UPPER ABDOMEN: Upper abdomen images show no specific acute abnormality. Pancreas atrophy. MUSCULOSKELETAL: No acute abnormality. 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 TECHNIQUE: CT angiogram chest during arterial phase injection IV contrast. 2D and 3D MIP reconstructions were performed by the system technologist. Dose reduction techniques were used. CONTRAST: 64 mL Isovue-370 COMPARISON: CT chest 09/27/2019. FINDINGS: ANGIOGRAM CHEST: Pulmonary arteries are normal caliber and negative for pulmonary emboli. Thoracic aorta is negative for dissection. Coronary artery calcifications. LUNGS AND PLEURA: There are bilateral patchy peripheral areas of somewhat nodular and irregular consolidation. Some of these regions appear new or progressed. For example, at the left lower lobe focal consolidation is 2 cm, new at this position, series 9 image 183. There are other peripheral areas of nodularity at the right middle lobe, image 150, increasing at the posterolateral right upper lobe, image 77. No effusions. No pneumothorax. MEDIASTINUM/AXILLAE: Esophageal distention again noted diffusely. There may be some mild wall prominence of the distal esophagus that grossly appears stable. Left chest Port-A-Cath. No enlarged lymph nodes by size. UPPER ABDOMEN: Upper abdomen images show no specific acute abnormality. Pancreas atrophy. MUSCULOSKELETAL: No acute abnormality. IMPRESSION: 1. No evidence for pulmonary embolism or acute thoracic aortic abnormality. 2. New or progressed peripheral regions of irregular consolidation compared to 09/27/2019. This may relate to an infectious, or inflammatory etiology including pneumonia. Neoplastic etiology not entirely excluded. Recommend short interval follow-up CT chest in 1-3 months for surveillance. 3. Coronary artery calcifications. 4. Diffuse esophageal distention again noted. Correlate with gastroesophageal reflux. There is some wall prominence of the distal esophagus with neoplasm not excluded. BOBBY MONTEIRO MD Sacha Maria MD IMG CT ORDERABLES Final R esult * (ABNORMAL) Drug abuse screen 6 urine (tox) (01/27/2018 8:17 AM AUTO TRAVEL COUNSELOR) Amphetamine Qual Urine Negative NEG^Nega tive 01/27/2018 8:45 AM [facility] Comment:Cutoff for a negativ e amphetamine is 500 ng/mL or less. Barbiturates Qual Urine Negative NEG^Nega tive 01/27/2018 8:45 AM [facility] Comment:Cutoff for a negativ e barbiturate is 200 ng/mL or less. Benzodiazepine Qual Urine Negative NEG^Nega tive 01/27/2018 8:45 AM AUTO TRAVEL COUNSELOR [facility] Comment:Cutoff for a negativ e benzodiazepine is 200 ng/mL or less. Cannabinoids Qual Urine Negative NEG^Nega tive 01/27/2018 8:45 AM [facility] Comment:Cutoff for a negativ e cannabinoid is 50 ng/mL or less. Cocaine Qual Urine Negative NEG^Nega tive 01/27/2018 8:45 AM [facility] Comment:Cutoff for a negativ e cocaine is 300 ng/mL or less. Ethanol Qual Urine Negative NEG^Nega tive 01/27/2018 8:43 AM [facility] Comment:Cutoff for a negativ e urine ethanol is 0.05 g/dL or less Opiates Qualitative Urine Positive(A) NEG^Nega tive 01/27/2018 8:45 AM [facility] Comment: Cutoff for a positive opiate is greater than 300 ng/mL. This is an unconfirmed screening result to be used for medical purposes only. Urine specimen (specimen) URINE SPECIMEN COLLECTION, CATHETERIZED / Unknown 01/27/2018 8:17 AM AUTO TRAVEL COUNSELOR 01/27/2018 8:26 AM [facility] us Vaughn Izaguirre MD LAB - URINE ORDERABLES Final Re sult [facility] [address] [place] [address] * COLONOSCOPY (08/18/2017 1:52 PM CDT) COLONOSCOPY [facility] ___ Patient Name: Roxanna Monzon Procedure Date: 08/18/2017 1:52 PM Date of : 1965 Admit Type: Outpatient Age: 51 Gender: Female Attending MD: Jaden Cherry MD Total Sedation Time: __28___minutes continuous bedside 1:1 Instrument Name: 140 ___ Procedure: Colonoscopy Indications: Chronic diarrhea Providers: Jaden Cherry MD (Doctor) Referring MD: Robert Marley MD (Referring MD), Charleen Lynne MD (Referring MD), Harvey Ho (Referring MD) Medicines: Midazolam 3 mg IV, Fentanyl 150 micrograms IV Complications: No immediate complications. ___ Procedure: Pre-Anesthesia Assessment: - Prior to the procedure, a History and Physical was performed, and patient medications and allergies were reviewed. The patient is competent. The risks and benefits of the procedure and the sedation options and risks were discussed with the patient. All questions were answered and informed consent was obtained. Patient identification and proposed procedure were verified by the physician in the procedure room. Mental Status Examination: alert and oriented. Airway Examination: normal oropharyngeal airway and neck mobility. Respiratory Examination: clear to auscultation. CV Examination: normal. Prophylactic Antibiotics: The patient does not require prophylactic antibiotics. Prior Anticoagulants: The patient has taken no previous anticoagulant or antiplatelet agents. ASA Grade Assessment: III - A patient with severe systemic disease. After reviewing the risks and benefits, the patient was deemed in satisfactory condition to undergo the procedure. The anesthesia plan was to use moderate sedation / analgesia (conscious sedation). Immediately prior to administration of medications, the patient was re-assessed for adequacy to receive sedatives. The heart rate, respiratory rate, oxygen saturations, blood pressure, adequacy of pulmonary ventilation, and response to care were monitored throughout the procedure. The physical status of the patient was re-assessed after the procedure. After obtaining informed consent, the colonoscope was passed under direct vision. Throughout the procedure, the patient's blood pressure, pulse, and oxygen saturations were monitored continuously. The Olympus Peds Colonoscope Model #PCF-H190L, [place]ora#140, SN#[id number] was introduced through the anus and advanced to the cecum, identified by appendiceal orifice and ileocecal valve. The colonoscopy was performed without difficulty. The patient tolerated the procedure well. The quality of the bowel preparation was adequate to identify polyps. Findings: The perianal and digital rectal examinations were normal. The entire examined colon appeared normal on direct and retroflexion views. Impression: - The entire examined colon is normal on direct and retroflexion views. - No specimens collected. Recommendation: - Repeat colonoscopy in 10 years for screening purposes. Procedure Code(s): --- Professional --- 41217, Colonoscopy, flexible; diagnostic, including collection of specimen(s) by brushing or washing, when performed (separate procedure) Diagnosis Code(s): --- Professional --- K52.9, Noninfective gastroenteritis and colitis, unspecified CPT copyright 2017 [employer]. All rights reserved. The codes documented in this report are preliminary and upon correspondence school instructor review may be revised to meet current compliance requirements. Electronically signed by Jaden Cherry MD _ Jaden Cherry MD 08/18/2017 3:02:53 PM I was physically present for the entire viewing portion of the exam. Jaden Cherry MD Number of Addenda: 0 Note Initiated On: 08/18/2017 1:52 PM Procedure Date: 08/18/2017 1:52:40 PM Scope Withdrawal Time: 0 hours 8 minutes 37 seconds Total Procedure Duration: 0 hours 22 minutes 26 seconds Estimated Blood Loss: Scope In: 2:33:53 PM Scope Out: 2:56:19 PM RADIOLOGY RESULTS 08/18/2017 1:52 PM CDT us Robert Marley MD PROCEDURES Final Res ult RADIOLOGY RESULTS * EYE EXAM - HIM SCAN (08/14/2017 12:00 AM CDT) 08/14/2017 us Provider Outside OTHER Final Result * Stool: occult blood (12/05/2016 11:38 AM CDT) Occult Blood Negative NEG^Negati ve 12/05/2016 12:07 PM CDT [facility] Stool specimen (specimen) 12/05/2016 11:38 AM CDT 12/05/2016 12:01 PM CDT us Laurence Cabral PA-C LAB - STOOLS ORDER NADINE Final Result Performing Organization Address City/[facility]/ZIP Co de Phone Number [facility] [address] [phone] * Parathyroid Hormone Intact (01/13/2016 6:55 AM AUTO TRAVEL COUNSELOR) Parathyroid Hormone Intact Unsatisfactory specimen - hemolyzed DEN CRISTOBAL ON U7D 01/13/16 0817 NYD 12 - 72 pg/mL [facility] Blood specimen (specimen) 01/13/2016 6:55 AM AUTO TRAVEL COUNSELOR 01/13/2016 7:11 AM AUTO TRAVEL COUNSELOR us Merle Hernandez MD LAB - BLOOD ORDERABLES Fin al Result Performing Organization Address City/[facility]/ZIP Co de Phone Number [facility] [address] [place] [address] * HIV-1 RNA quantitative (01/08/2016 8:15 AM AUTO TRAVEL COUNSELOR) [facility] [address] HIV-1 RNA Quant Result HIV-1 RNA Not Detected The KAREN AmpliPrep/KAREN TaqMan HIV-1 test is an FDA-approved in vitro nucleic acid amplification test for the quantitation of HIV-1 RNA in human plasma (EDTA plasma) using the KAREN AmpliPrep instrument for automated viral nucleic acid extraction and the KAREN TaqMan Analyzer or OpSource TaqMan for automated Real Time PCR amplification and detection of the viral nucleic acid target. Titer results are reported in copies/ml. This assay is intended for use in conjunction with clinical presentation and other laboratory markers of disease prognosis and for use as an aid in assessing viral response to antiretroviral treatment as measured by changes in plasma HIV-1 RNA levels. This test should not be used as a donor screening test to confirm the presence of HIV-1 infection. HIVND {Copies} /mL [facility] HIV RNA QT Log Not Calculated <1.3 {Log_cop ies}/mL [facility] Blood specimen (specimen) 01/08/2016 8:15 AM AUTO TRAVEL COUNSELOR 01/08/2016 8:16 AM AUTO TRAVEL COUNSELOR us Elder Mckeon MD LAB - BLOOD ORDERABLES Final Result Performing Organization Address [facility] Co de Phone Number [address] * Hepatits C antibody (01/05/2016 5:54 AM CDT) [facility] [address] Hepatitis C Antibody Nonreactive Assay performance characteristics have not been established for newborns, infants, and children NR [facility] Blood specimen (specimen) 01/05/2016 5:54 AM CDT 01/05/2016 5:56 AM CDT Elder Mckeon MD LAB - BLOOD ORDERABLES Final Result [facility] [address] [place] [address] from Last 3 Months or Most Recently Relevant to Health Maintenance Additional Health Concerns Infection Onset Date 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, 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 [place] Advance Directives For more information, please contact: [phone] * Full Code (Latest Code Status on File) Date Activated Date Inactivated Comments 07/20/2023 11:05 AM 10/04/2024 8:22 AM Question Answer Comments Code status determined by: Discussion with patie nt/ legal decision maker * Full Code Date Activated Date Inactivated Comments 07/16/2023 1:30 AM 07/20/2023 11:05 AM All basic a nd advanced life-sustaining interventions are performed as appropriate Question Answer Comments Code status determined by: Discussion with patie nt/ legal decision maker * Full Code Date Activated Date Inactivated Comments 01/07/2021 4:25 PM 01/09/2021 2:17 PM All basic a nd advanced life-sustaining interventions are performed as appropriate Question Answer Comments Code status determined by: Discussion with patie nt/ legal decision maker * Full Code Date Activated Date Inactivated Comments 07/21/2020 9:11 PM 07/23/2020 8:31 PM All basic an d advanced life-sustaining interventions are performed as appropriate Question Answer Comments Code status determined by: Discussion with patie nt/ legal decision maker * Full Code Date Activated Date Inactivated Comments 04/22/2020 11:30 AM 05/15/2020 8:09 PM Question Answer Comments Code status determined by: Discussion with patie nt/ legal decision maker Care Teams Equipment Engineering Technician Relationship Specialty Start Date End Date Robert Marley MD [facility] [id number] [place] [id number] PCP - General Family Practice 12/08/10 Tayo Lacey MD [facility] [id number] [place] [address] Cardiology 08/30/14 Christopher Quiroga MD [facility] [address] [place] [address] Oncology 07/02/16 Lance Simpson PAJosseC [address] [place] [address] Physician All Source Intelligence Analyst Physician All Source Intelligence Analyst 01/07/18 Sherri Kingston PA [address] [place] [address] [place] [address] Physician All Source Intelligence Analyst Physician All Source Intelligence Analyst 12/21/18 Delvin Bob MD [address] [place] [address] [address] [place] [address] Internal Medicine 11/11/19 Love Hernandez PA-C [address] [place], [place] [address] Physician All Source Intelligence Analyst Urology 12/01/22 Love Hernandez PA-C [address] [place], [place] [address] Assigned Surgical Provider 01/17/23 [place] [address] [place] [address] Assigned Gastroenterology Provider 07/23/23 Everardo Grant MD [address] [place] [id number] Physician Infectious Diseases 09/23/23 Rey Billings MD [address] [place] [id number] Assigned Infectious Disease Provider 10/23/23 Conrado Evans MD [address] [facility] [address] [facility] [address] [place] [address] Nephrology 08/25/24 Delvin Lopez MD [address] [place] [address] Nephrology 08/25/24
--- OUTSIDE RECORDS SUMMARY | 2024-10-13 08:59 | XMS_ITS | Encounter Summary ---
Author Organization [facility] Address [address] [place] [address] Care Team Providers Care Rib Matcher And Fitter Name Role Phone Robert Marley MD Primary Care Provider Chana Cheng MD Unavailable [phone] Anoop Garcia MD Unavailable Unavailable Barbara Carlson MD Unavailable Tayo Lacey MD Unavailable [phone] TuBasil shaikh MD Unavailable Charleen Lynne MD Unavailable [phone] Olimpia Williamson RN Unavailable [phone] Rin Dewitt RN Unavailable [phone] Rin Dewitt RN Unavailable [phone] Qian Rodriguez MD Unavailable [phone] Sherri Kingston Unavailable [phone] Olimpia Williamson RN Unavailable [phone] Olimpia Williamson RN Unavailable [phone] Christopher Quiroga MD Unavailable Claudia Yousif RN Unavailable Lance Simpson PA-C Unavailable [phone] Olimpia Williamson RN Unavailable [phone] Sherri Kingston Unavailable Delvin Bob MD Unavailable Charleen Lynne MD Unavailable [phone] ChapaShakira zelaya MD Unavailable Unav ailable AmbarZoltan soares ADRIANM Unavailable [phone] Delvin Bob MD Unavailable Shante Mathisony Jaden LÓPEZ Unavailable + Sherri Kingston Unavailable Pedro Winchester MD Unavailable [phone] ChapaShakira zelaya MD Unavailable Unav ailable Jovanni Dempsey MD Unavailable Jovanni Dempsey MD Unavailable [phone] Len Hooks MD Unavailable Delvin Bob MD Unavailable Love Hernandez PA-C Unavailable [phone] Conrado Evans MD Unavailable Love Hernandez PA-C Unavailable [phone] Gordy Nickerson MD Unavailable [phone] Everardo Grant MD Unavailable Rey Billings MD Unavailable Conrado Evans MD Unavailable Delvin Lopez MD Unavailable [phone] Carissa Putnam RN Unavailable [phone] Encounter Details Date Type Department Care Team (Late st Contact Info) Description 03/01/2015 External Order Results [facility] Clinic [address] [address] Social History Tobacco Use Types Packs/Day Years Used Date Smoking Tobacco: Former Smokeless Tobacco: Never Alcohol Use Standard Drinks/Week Comments No 0 (1 standard drink = 0.6 oz pur e alcohol) Comments No Sex and Gender Information Value Date Recorded Sex Assigned at Not on file Legal Sex Female 3:26 AM PROPERTY AND SUPPLY OFFICER Gender Identity Not on file Sexual Orientation Not on file Occupation Industry Job Start Date Job End Date Not on file Not on file Not on file Not on file documented as of this encounter Progress Notes * Bisi Fragoso, RN - 03/01/2015 11:21 AM CSTQuick Note: Outside labs; neutropenia - WBC 1.37/ANC 0.22; to provider for review and recommendation; CMV PCR Quant added to lab work. Kassy Fragoso R.N. - [phone] ERTY AND SUPPLY OFFICER documented in this encounter Plan of Treatment Upcoming Encounters Date Type Department Care Team (Late st Contact Info) Description 10/25/2024 10:00 AM CDT Virtual Visit [facility] [address] [place] [address] Edith Brito 10/26/2024 8:30 AM CDT Lab [facility] Center [facility] [address] [facility] [address] [place] [phone] Conrado Evans MD [address] [place] [address] 353 [facility] [address] [place] [address] documented as of this encounter Procedures Procedure Name Priority Date/Time Associated Diagnosis Comments EXTERNAL LAB RESULTS Routine 03/01/2015 9:53 AM PROPERTY AND SUPPLY OFFICER documented in this encounter Results * TXP External Lab Result (03/01/2015 9:53 AM PROPERTY AND SUPPLY OFFICER) WBC Count (External) 1.37 LABDE SCAN RBC Count (External) 5.01 LABDE SCAN Hemoglobin (External) 12.5 g/dL LABDE SCAN Hematocrit (External) 40.0 % LABDE SCAN MCV (External) 79.8 LABDE SCAN MCH (External) 25.0 LABDE SCAN MCHC (External) 31.3 g/dL LABDE SCAN Platelet Count (External) 136 10^3 LABDE SCAN Absolute Neutrophils (External) 0,22 LABDE SCAN % Neutrophils (External) 16.1 % LABDE SCAN Absolute Lymphocytes (External) 0.50 LABDE SCAN % Lymphocytes (External) 36.5 % LABDE SCAN Absolute Monocytes (External) 0.54 LABDE SCAN % Monocytes (External) 39.4 % LABDE SCAN Absolute Eosinophils (External) 0.08 LABDE SCAN % Eosinophils (External) 5.8 LABDE SCAN Absolute Basophils (External) 0.03 LABDE SCAN % Basophils (External) 2.2 % LABDE SCAN 03/01/2015 9:53 AM PROPERTY AND SUPPLY OFFICER Narrative BOBBY PFT - 03/01/2015 11:17 AM PROPERTY AND SUPPLY OFFICER Verified by Tayla Dodson on 03/01/2015. us Patient Reported LABORATORY Edited Result - [...] the IP on-call for review. 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 Rule Out COVID-19 04/19/2020 04/19/2020 04/19/2020 1:56 PM PROPERTY AND SUPPLY OFFICER Rule Out COVID-19 04/19/2020 04/20/2020 04/20/2020 6:34 AM PROPERTY AND SUPPLY OFFICER Rule Out COVID-19 12/15/2020 12/15/2020 12/15/2020 4:33 PM CDT Rule Out C-difficile 01/06/2021 01/08/2021 021 11:43 AM PROPERTY AND SUPPLY OFFICER Rule Out C-difficile 07/10/2021 07/10/2021 022 5:56 PM CDT Rule Out C-difficile 07/16/2023 07/16/2023 024 9:21 PM CDT Rule Out Parvovirus 07/16/2023 07/16/2023 07/19/19 24 12:29 PM CDT Parvovirus 07/16/2023 07/16/2023 10/03/2024 4:22 PM CDT [id number] Comment:This patient was exposed to a person with a known CP-DIVIDEND DEPOSIT ENTRY CLERK and has the potential for having acquired this pathogen of concern. The [place] Department of Health ([facility]) and CDC recommend that we screen this patient to prevent the spread of these organisms within our healthcare facility. Infection Prevention has placed orders for collecting a rectal swab for CP-DIVIDEND DEPOSIT ENTRY CLERK to evaluate if this patient is [...] Sharepoint page. 08/04/2023 08/04/2023 02/02/2024 11:39 PM PROPERTY AND SUPPLY OFFICER Rule Out Parvovirus 09/28/2023 09/28/2023 10/05/19 11:41 PM CDT documented as of this encounter Care Teams Rib Matcher And Fitter Relationship Specialty Start Date End Date Robert Marley MD [facility] [address] [place] [address] PCP - General Family Practice 12/08/[address] [facility] [address] [place] [address] Nephrology 05/26/14 11/12/[address] [facility] [address] [place] [address] Transplant 05/26/14 02/02/18 Barbara Carlson MD [address] [place] [phone] Referring Physician Nephrology 08/30/14 11/12/15 Tayo Lacey MD [address] [place] [address] Cardiology 08/30/14 Basil Plummer MD [address] [place] [address] Neurology 05/09/15 04/23/16 Charleen Lynne MD [address] [place], [place] [address] MD Oncology 06/14/15 12/19/18 Olimpia Williamson, SONIA Nurse Coordinator Oncology 06/14/15 04/23/16 Rin Dewitt RN Nurse Coordinator Neurology 07/24/15 04/23/16 Rin Dewitt RN Nurse Coordinator Neurology 10/25/15 10/12/17 Qian Rodriguez MD 717 [facility] [address] [place] [address] Nephrology 11/13/15 06/16/16 Sherri Kingston PA 420 [facility] [address] [place], [place] [phone] Physician Help Aid Physician Help Aid 03/20/16 Olimpia Williamson, SONIA Nurse Coordinator Oncology 06/26/16 06/26/16 Olimpia Williamson, SONIA Nurse Coordinator Oncology 06/26/16 06/16/18 Christopher Quiroga MD [facility] [address] [facility] 200 [place], [place] [phone] Oncology 07/02/16 Claudia Yousif, RN Nurse Coordinator Gastroenterology 02/09/17 09/16/22 Lance Simpson PA-C [address] [place] [address] Physician Help Aid Physician Help Aid 01/07/18 Olimpia Williamson RN Specialty Soccer Coach Hematology & Oncology 05/06/18 12/19/18 Sherri Kingston PA [address] [place] [address] 833125 Physician Help Aid Physician Help Aid 12/21/18 Delvin Bob MD [address] [place] [address] [address] [place], [place] 319165 Internal Medicine 11/11/19 Charleen Lynne MD [address] [place] [address] 804085 Assigned Cancer Care Provider 12/23/19 03/23/21 Shakira Chapa MD INACTIVE IN [place] OF 06/29/2020 Assigned Surgical Provider 12/23/19 07/14/20 Zoltan Eric DPM [address] [facility] [address] [place], [place] 6749[address] Assigned Musculoskeletal Provider 12/23/19 07/26/21 Delvin Bob MD [address] [place] [address] [address] [place], [place] 166365 Assigned PCP 12/08/19 02/14/22 Maximo Mathis DO [address] [place] [address] [id number] Assigned Neuroscience Provider 02/12/20 08/09/21 Sherri Kingston PA [address] [place] [address] Assigned Surgical Provider 07/15/20 10/06/20 Pedro Winchester MD [address] [place] [id number] Assigned Heart and Vascular Provider 08/05/20 01/31/22 Shakira Chapa MD INACTIVE IN [place] OF 06/29/2020 Assigned Surgical Provider 10/07/20 10/13/20 Jovanni Dempsey MD [address] [place], [place] 786382 Assigned Nephrology Provider 03/24/21 03/14/22 Jovanni Dempsey MD [address] [place], [place] 078552 Assigned Nephrology Provider 03/15/22 03/21/22 Len Hooks MD [address] [place], [place] 429514 Assigned Nephrology Provider 03/22/22 12/26/22 Delvin Bob MD [address] [facility] [address] [place], [place] 9768[address] Assigned PCP 04/26/22 12/12/22 Love Hernandez PA-C [address] [place] 7[address]75 Physician Help Aid Urology 12/01/22 Conrado Evans MD [address] [facility] [address] [place], [place] 243324 Assigned Nephrology Provider 12/27/22 06/21/24 Love Hernandez PA-C 6363 [facility] 500 [place], [place] 955955 Assigned Surgical Provider 01/17/23 [place] [address], [place] 609939 Assigned Gastroenterology Provider 07/23/23 Everardo Grant MD [address] [place] [address] [id number] Physician Infectious Diseases 09/23/23 Rey Billings MD [address] [place] [address] [id number] Assigned Infectious Disease Provider 10/23/23 Conrado Evans MD [address] [place] [address] 353 [facility] [address] [place], [place] [phone] Nephrology 08/25/24 Delvin Lopez MD [address] [place] [address] [phone] Nephrology 08/25/24 Carissa Putnam, RN [facility] [address] [place], [place] [phone] Specialty Soccer Coach Pharmacy 10/10/24 10/10/24 documented as of this encounter
--- OUTSIDE RECORDS SUMMARY | 2024-10-13 08:59 | XMS_ITS | Encounter Summary ---
Author Organization [facility] Address [address] [place] [address] Care Team Providers Care Advertising Specialist Name Role Phone Robert Marley MD Primary Care Provider Chana Cheng MD Unavailable [phone] Anoop Garcia MD Unavailable Unavailable Barbara Carlson MD Unavailable Tayo Lacey MD Unavailable [phone] TuBasil shaikh MD Unavailable Charleen Lynne MD Unavailable [phone] Olimpia Williamson RN Unavailable [phone] Rin Dewitt RN Unavailable [phone] Rin Dewitt RN Unavailable [phone] Qian Rodriguez MD Unavailable [phone] Sherri Kingston Unavailable [phone] Olimpia Williamson RN Unavailable [phone] Olimpia Williamson RN Unavailable [phone] Christopher Quiroga MD Unavailable Claudia Yousif RN Unavailable Lance Simpson PA-C Unavailable [phone] Olimpia Williamson RN Unavailable [phone] Sherri Kingston Unavailable Delvin Bob MD Unavailable Charleen Lynne MD Unavailable [phone] ChapaShakira zelaya MD Unavailable Unav ailable AmbarZoltan soares ADRIANM Unavailable [phone] Delvin Bob MD Unavailable [phone] Shante Mathisony Jaden LÓPEZ Unavailable + Sherri Kingston Unavailable [phone] Pedro Winchester MD Unavailable ChapaShakira zelaya MD Unavailable Unav ailable Jovanni Dempsey MD Unavailable Jovanni Dempsey MD Unavailable [phone] Len Hooks MD Unavailable Delvin Bob MD Unavailable Love Hernandez PA-C Unavailable Conrado Evans MD Unavailable [phone] Love Hernandez PA-C Unavailable Gordy Nickerson MD Unavailable [phone] Everardo Grant MD Unavailable Rey Billings MD Unavailable Conrado Evans MD Unavailable [phone] Delvin Lopez MD Unavailable [phone] Carissa Putnam RN Unavailable [phone] Encounter Details Date Type Department Care Team (Late st Contact Info) Description 03/01/2015 External Order Results [facility], Clinic [address] [address] Social History Tobacco Use Types Packs/Day Years Used Date Smoking Tobacco: Former Smokeless Tobacco: Never Alcohol Use Standard Drinks/Week Comments No 0 (1 standard drink = 0.6 oz pur e alcohol) Comments No Sex and Gender Information Value Date Recorded Sex Assigned at Not on file 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 Gender Identity Not on file Sexual Orientation Not on file Occupation Industry Job Start Date Job End Date Not on file Not on file Not on file Not on file documented as of this encounter Plan of Treatment Upcoming Encounters Date Type Department Care Team (Late st Contact Info) Description 10/25/2024 10:00 AM CDT Virtual Visit [facility] Health & [facility] [address] [place] [address] Edith Brito 10/26/2024 8:30 AM CDT Lab [facility] Cancer Center [facility] [address] [facility] 200 [place] [phone] Conrado Evans MD 717 [facility] 353 [facility] [address] [place] [address] documented as of this encounter Visit Diagnoses [...] the IP on-call for review. Meena Torres [facility] Infection Prevention 07/11/2019 at 3:56 [...] Out COVID-19 04/19/2020 04/19/2020 04/19/2020 1:56 PM HEAD UP OPERATOR HELPER Rule Out COVID-19 04/19/2020 04/20/2020 04/20/2020 6:34 AM HEAD UP OPERATOR HELPER Rule Out COVID-19 12/15/2020 12/15/2020 12/15/2020 4:33 PM CDT Rule Out C-difficile 01/06/2021 01/08/2021 021 11:43 AM HEAD UP OPERATOR HELPER Rule Out C-difficile 07/10/2021 07/10/2021 022 5:56 PM CDT Rule Out C-difficile 07/16/2023 07/16/2023 024 9:21 PM CDT Rule Out Parvovirus 07/16/2023 07/16/2023 07/19/19 24 12:29 PM CDT Parvovirus 07/16/2023 07/16/2023 10/03/2024 4:22 PM CDT [id number] Comment:This patient was exposed to a person with a known CP-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 The [place] Department of Health ([facility]) and CDC recommend that we screen this patient to prevent the spread of these organisms within our healthcare facility. Infection Prevention has placed orders for collecting a rectal swab for CP-SOFT WORK CIGAR MACHINE OPERATOR to evaluate if this patient is [...] Sharepoint page. 08/04/2023 08/04/2023 02/02/2024 11:39 PM HEAD UP OPERATOR HELPER Rule Out Parvovirus 09/28/2023 09/28/2023 10/05/19 11:41 PM CDT documented as of this encounter Care Teams Advertising Specialist Relationship Specialty Start Date End Date Robert Marley MD [address] [address] PCP - General Family Practice 12/08/10 Chana Cheng MD [facility] [address] [place] [address] Nephrology 05/26/14 11/12/15 Anoop Garcia MD [facility] [address] [place] [address] Transplant 05/26/14 02/02/18 Barbara Carlson MD [address] [place] [phone] Referring Physician Nephrology 08/30/14 11/12/15 Tayo Lacey MD [address] [place] [phone] Cardiology 08/30/14 Basil Plummer MD [address] [place] [address] 508615 Neurology 05/09/15 04/23/16 Charleen Lynne MD [address] [place] [address] MD Oncology 06/14/15 12/19/18 Olimpia Williamson, RN Nurse Coordinator Oncology 06/14/15 04/23/16 Rin Dewitt RN Nurse Coordinator Neurology 07/24/15 04/23/16 Rin Dewitt RN Nurse Coordinator Neurology 10/25/15 10/12/17 Qian Rodriguez MD 717 [facility] 353 [place], [place] [address] Nephrology 11/13/15 06/16/16 Sherri Kingston PA 420 [facility] [address] [place], [place] [address] Physician Food Order Delivery Runner Physician Food Order Delivery Runner 03/20/16 Olimpia Williamson, RN Nurse Coordinator Oncology 06/26/16 06/26/16 Olimpia Williamson, RN Nurse Coordinator Oncology 06/26/16 06/16/18 Christopher Quiroga MD [facility] [address] [facility] 200 [place], [place] [address]697 MD Oncology 07/02/16 Claudia Yousif, RN Nurse Coordinator Gastroenterology 02/09/17 09/16/22 Lance Simpson PA-C [address] [place] [address] Physician Food Order Delivery Runner Physician Food Order Delivery Runner 01/07/18 Olimpia Williamson, RN Specialty Infrastructure Consultant Hematology & Oncology 05/06/18 12/19/18 Sherri Kingston PA [address] [place] [address] 829505 Physician Food Order Delivery Runner Physician Food Order Delivery Runner 12/21/18 Delvin Bob MD [address] [place] [address] 250 [place], [place] 231485 Internal Medicine 11/11/19 Charleen Lynne MD [address] [place] [address] Assigned Cancer Care Provider 12/23/19 03/23/21 Shakira Chapa MD INACTIVE IN [place] OF 06/29/2020 Assigned Surgical Provider 12/23/19 07/14/20 Zoltan Eric DPM [address] [facility] [address] [place] [address] Assigned Musculoskeletal Provider 12/23/19 07/26/21 Delvin Bob MD [address] [place] [address] 250 [place] [address] Assigned PCP 12/08/19 02/14/22 Maximo Mathis DO [address] [place] [address] 092155 Assigned Neuroscience Provider 02/12/20 08/09/21 Sherri Kingston PA [address] [place] [address] Assigned Surgical Provider 07/15/20 10/06/20 Pedro Winchester MD [address] [place] [address] Assigned Heart and Vascular Provider 08/05/20 01/31/22 Shakira Chapa MD INACTIVE IN [place] OF 06/29/2020 Assigned Surgical Provider 10/07/20 10/13/20 Jovanni Dempsey MD 600 [place], [place] 560702 Assigned Nephrology Provider 03/24/21 03/14/22 Jovanni Dempsey MD [address] [place], [place] 224782 Assigned Nephrology Provider 03/15/22 03/21/22 Len Hooks MD 717 [facility] 353 [place], [place] [address]34 Assigned Nephrology Provider 03/22/22 12/26/22 Delvin Bob MD 420 [facility] [address] [place] [address] Assigned PCP 04/26/22 12/12/22 Love Hernandez PA-C [address] [facility] [address] [place] [address] Physician Food Order Delivery Runner Urology 12/01/22 Conrado Evans MD 717 [facility] 353 [facility] [address] [place] [address] Assigned Nephrology Provider 12/27/22 06/21/24 Love Hernandez PA-C 6363 [facility] 500 [place] [address] Assigned Surgical Provider 01/17/23 [place] [address] [place] [address] Assigned Gastroenterology Provider 07/23/23 Everardo Grant MD [address] [place] [address] Physician Infectious Diseases 09/23/23 Rey Billings MD [address] [place] [address] Assigned Infectious Disease Provider 10/23/23 Conrado Evans MD [address] [place] [address] 353 [facility] [address] [place] [address] Nephrology 08/25/24 Delvin Lopez MD [address] [place] [address] Nephrology 08/25/24 Carissa Putnam RN [facility] [address] [place] [address] 837014 Specialty Infrastructure Consultant Pharmacy 10/10/24 10/10/24 documented as of this encounter
--- OUTSIDE RECORDS SUMMARY | 2024-10-13 08:59 | XMS_ITS | Encounter Summary ---
Author Organization [facility] Address [address] [place] [address] Care Team Providers Care Sluice Tender Name Role Phone Robert Marley MD Primary Care Provider Chana Cheng MD Unavailable [phone] Anoop Garcia MD Unavailable Unavailable Barbara Carlson MD Unavailable Tayo Lacey MD Unavailable [phone] TuBasil shaikh MD Unavailable Charleen Lynne MD Unavailable [phone] Olimpia Williamson RN Unavailable [phone] Rin Dewitt RN Unavailable [phone] Rin Dewitt RN Unavailable [phone] Qian Rodriguez MD Unavailable [phone] Sherri Kingston Unavailable [phone] Olimpia Williamson RN Unavailable [phone] Olimpia Williamson RN Unavailable [phone] Christopher Quiroga MD Unavailable Claudia Yousif RN Unavailable Lance Simpson PA-C Unavailable [phone] Olimpia Williamson RN Unavailable [phone] Sherri Kingston Unavailable Delvin Bob MD Unavailable Charleen Lynne MD Unavailable [phone] ChapaShakira zelaya MD Unavailable Unav ailable AmbarZoltan soares ADRIANM Unavailable [phone] Delvin Bob MD Unavailable Shante Mathisony Jaden LÓPEZ Unavailable + Sherri Kingston Unavailable Pedro Winchester MD Unavailable ChapaShakira zelaya MD Unavailable Unav ailable Jovanni Dempsey MD Unavailable Jovanni Dempsey MD Unavailable [phone] Len Hooks MD Unavailable Delvin Bob MD Unavailable Love Hernandez PA-C Unavailable Conrado Evans MD Unavailable [phone] Love Hernandez PA-C Unavailable Gordy Nickerson MD Unavailable Everardo Grant MD Unavailable Rey Billings MD Unavailable Conrado Evans MD Unavailable Delvin Lopez MD Unavailable [phone] Carissa Putnam RN Unavailable [phone] Encounter Details Date Type Department Care Team (Late st Contact Info) Description 04/17/2015 External Order Results [facility] [address] [address] Social History Tobacco Use Types Packs/Day Years Used Date Smoking Tobacco: Former Smokeless Tobacco: Never Alcohol Use Standard Drinks/Week Comments No 0 (1 standard drink = 0.6 oz pur e alcohol) Comments No Sex and Gender Information Value Date Recorded Sex Assigned at Not on file Legal Sex Female 3:26 AM REMOTELY OPERATED VEHICLE Gender Identity Not on file Sexual Orientation Not on file Occupation Industry Job Start Date Job End Date Not on file Not on file Not on file Not on file documented as of this encounter Plan of Treatment Upcoming Encounters Date Type Department Care Team (Late st Contact Info) Description 10/25/2024 10:00 AM CDT Virtual Visit [facility] [address] [place] [address] Edith Brito 10/26/2024 8:30 AM CDT Lab [facility] [address] [facility] 200 [place] [address] Conrado Evans MD 717 [facility] 353 [facility] 1932 [place], [place] [address] documented as of this encounter Procedures Procedure Name Priority Date/Time Associated Diagnosis Comments EXTERNAL LAB RESULTS Routine 04/17/2015 10:25 AM REMOTELY OPERATED VEHICLE documented in this encounter Results * (ABNORMAL) TXP External Lab Result (04/17/2015 10:25 AM REMOTELY OPERATED VEHICLE) Triglycerides (External) 275(H) 40 - 150 MG/DL LABDE SCAN Cholesterol (External) 232(H) 90 - 200 mg/dl LABDE SCAN HDL Cholesterol (External) 55 >45 mg/dL LABDE SCAN LDL-Cholesterol (External) 122(H) <100 mg/dL LABDE SCAN ALT (External) 31 9 - 41 U/L LABDE SCAN AST (External) 52(H) 12 - 35 U/L LABDE SCAN Alk Phosphatase (External) 133(L) 140 - 150 U/L LABDE SCAN Bilirubin Total (External) 2.2(H) 0.0 - 1.5 MG/DL LABDE SCAN Albumin (External) 4.1 3.3 - 5.0 G/DL LABDE SCAN Protein Total (External) 7.2 6.0 - 8.3 G/DL LABDE SCAN Calcium (External) 9.1 8.4 - 10.6 MG/DL LABDE SCAN Urea Nitrogen (External) 33(H) 5 - 24 MG/DL LABDE SCAN Creatinine (External) 1.0 0.5 - 1.5 MG/DL LABDE SCAN Glucose (External) 83 60 - 115 mg/dL LABDE SCAN Sodium (External) 144 135 - 149 MMOL/L LABDE SCAN Potassium (External) 4.4 3.6 - 5.1 MMOL/L LABDE SCAN Chloride (External) 103 96 - 114 MMOL/L LABDE SCAN CO2 (External) 30 20 - 32 MMOL/L LABDE SCAN Amylase (External) 68 18 - 89 U/L LABDE SCAN Magnesium (External) 1.7 1.5 - 2.6 MG/DL LABDE SCAN Lipase Level (External) 57 23 - 300 u/l LABDE SCAN WBC Count (External) 6.74 5.00 - 10.00 K/UL LABDE SCAN RBC Count (External) 2.29(L) 3.90 - 5.03 m/ul LABDE SCAN Hemoglobin (External) 6.6(LL) 12.0 - 15.5 GM/DL LABDE SCAN Hematocrit (External) 20.1(L) 34.9 - 44.5 % LABDE SCAN MCV (External) 88 82 - 98 FL LABDE SCAN MCH (External) 29 27 - 34 PG LABDE SCAN MCHC (External) 33 32 - 36 GM/DL LABDE SCAN Platelet Count (External) 471(H) 150 - 450 k/ul LABDE SCAN % Neutrophils (External) 66.2 50.0 - 70.0 % LABDE SCAN % Lymphocytes (External) 11.3(L) 25.0 - 45.0 % LABDE SCAN % Monocytes (External) 15.1(H) 0.00 - 11.0 % LABDE SCAN % Eosinophils (External) 4.9 0.0 - 7.0 % LABDE SCAN % Basophils (External) 1.6 0.0 - 3.0 % LABDE SCAN Absolute Neutrophils (External) 4.46 1.70 - 7.00 k/ul LABDE SCAN Absolute Lymphocytes (External) 0.76(L) 0.90 - 2.90 K/UL LABDE SCAN Absolute Monocytes (External) 1.02(H) 0.30 - 0.90 K/UL LABDE SCAN Absolute Eosinophils (External) 0.33 0.00 - 0.50 k/ul LABDE SCAN Absolute Basophils (External) 0.11 0.00 - 0.20 K/UL LABDE SCAN % Immature Granulocytes (External) 0.9 % LABDE SCAN Absolute Immature Granulocytes (External) 0.06 k/ul LABDE SCAN Hemoglobin A1C (External) 5.6 4.8 - 5.9 % LABDE SCAN 04/17/2015 10:2 5 AM REMOTELY OPERATED VEHICLE Narrative BOBBY PFT - 04/17/2015 2:18 PM REMOTELY OPERATED VEHICLE Verified by Vi Dominguez on 04/17/2015. us Patient Reported LABORATORY Edited Result - [...] the IP on-call for review. Meena Torres, [facility] Infection Prevention 07/11/2019 at 3:56 [...] Out COVID-19 04/19/2020 04/19/2020 04/19/2020 1:56 PM REMOTELY OPERATED VEHICLE Rule Out COVID-19 04/19/2020 04/20/2020 04/20/2020 6:34 AM REMOTELY OPERATED VEHICLE Rule Out COVID-19 12/15/2020 12/15/2020 12/15/2020 4:33 PM CDT Rule Out C-difficile 01/06/2021 01/08/2021 021 11:43 AM REMOTELY OPERATED VEHICLE Rule Out C-difficile 07/10/2021 07/10/2021 022 5:56 PM CDT Rule Out C-difficile 07/16/2023 07/16/2023 024 9:21 PM CDT Rule Out Parvovirus 07/16/2023 07/16/2023 07/19/19 24 12:29 PM CDT Parvovirus 07/16/2023 07/16/2023 10/03/2024 4:22 PM CDT [id number] Comment:This patient was exposed to a person with a known CP-SALES LEADER and has the potential for having acquired this pathogen of concern. The [place] Department of Health ([facility]) and CDC recommend that we screen this patient to prevent the spread of these organisms within our healthcare facility. Infection Prevention has placed orders for collecting a rectal swab for CP-SALES LEADER to evaluate if this patient is now a carrier. This patient was identified to have a low risk exposure in which case Contact Precautions are not necessary unless the patient tests positive. Screening is voluntary. Please notify Infection Prevention if the patient declines testing. Additional information and resources can be found on the Infection Prevention MDRO Sharepoint page. 08/04/2023 08/04/2023 02/02/2024 11:39 PM REMOTELY OPERATED VEHICLE Rule Out Parvovirus 09/28/2023 09/28/2023 10/05/19 11:41 PM CDT documented as of this encounter Care Teams Sluice Tender Relationship Specialty Start Date End Date Robert Marley MD [facility] [id number] [place] [address] PCP - General Family Practice 12/08/10 Chana Cheng MD [facility] [address] [place] [address] Nephrology 05/26/14 11/12/15 Anoop Garcia MD [facility] [address] [place] [address] Transplant 05/26/14 02/02/18 Barbara Carlson MD [address] [place] [address] Referring Physician Nephrology 08/30/14 11/12/15 Tayo Lacey MD [address] [place] [address] Cardiology 08/30/14 Basil Plummer MD [address] [place] [address] Neurology 05/09/15 04/23/16 Charleen Lynne MD [address] [place] [address] Oncology 06/14/15 12/19/18 Olimpia Williamson, SONIA Nurse Coordinator Oncology 06/14/15 04/23/16 Rin Dewitt RN Nurse Coordinator Neurology 07/24/15 04/23/16 Rin Dewitt RN Nurse Coordinator Neurology 10/25/15 10/12/17 Qian Rodriguez MD 717 [facility] 353 [place], [place] [address] Nephrology 11/13/15 06/16/16 Sherri Kingston PA [address] [place] [address] 394 [place], [place] [address] Physician Wheat And Oats Flake Miller Physician Wheat And Oats Flake Miller 03/20/16 Olimpia Williamson, RN Nurse Coordinator Oncology 06/26/16 06/26/16 Olimpia Williamson, RN Nurse Coordinator Oncology 06/26/16 06/16/18 Christopher Quiroga MD [facility] [address] [place] [address] 200 [place], [place] [address] MD Oncology 07/02/16 Claudia Yousif RN Nurse Coordinator Gastroenterology 02/09/17 09/16/22 Lance Simpson PA-C [address] [place] [address]38405 Physician Wheat And Oats Flake Miller Physician Wheat And Oats Flake Miller 01/07/18 Olimpia Williamson, RN Specialty Fire Ranger Hematology & Oncology 05/06/18 12/19/18 Sherri Kingston PA [address] [place] [address] Physician Wheat And Oats Flake Miller Physician Wheat And Oats Flake Miller 12/21/18 Delvin Bob MD [address] [place] [address] Internal Medicine 11/11/19 Charleen Lynne MD [address] [place] [address] Assigned Cancer Care Provider 12/23/19 03/23/21 Shakira Chapa MD [place] 06/29/2020 Assigned Surgical Provider 12/23/19 07/14/20 Zoltan Eric DPM [address] [facility] [address] [place] [address] Assigned Musculoskeletal Provider 12/23/19 07/26/21 Delvin Bob MD [address] [place] [address] Assigned PCP 12/08/19 02/14/22 Maximo Mathis DO [address] [place] [address] Assigned Neuroscience Provider 02/12/20 08/09/21 Sherri Kingston PA [address] [place] [address] Assigned Surgical Provider 07/15/20 10/06/20 Pedro Winchester MD [address] [place] [address] Assigned Heart and Vascular Provider 08/05/20 01/31/22 Shakira Chapa MD [place] 06/29/2020 Assigned Surgical Provider 10/07/20 10/13/20 Jovanni Dempsey MD 600 [place], [place] [address] Assigned Nephrology Provider 03/24/21 03/14/22 Jovanni Dempsey MD 600 [place], [place] 353912 Assigned Nephrology Provider 03/15/22 03/21/22 Len Hooks MD [address] [facility] [place] [address] [place] [address] Assigned Nephrology Provider 03/22/22 12/26/22 Delvin Bob MD [facility] 250 [place] [address] Assigned PCP 04/26/22 12/12/22 Love Hernandez PA-C [address] [facility] [address] [place] 500 [place] [address] Physician Wheat And Oats Flake Miller Urology 12/01/22 Conrado Evans MD [address] [place] 353 [facility] [address] [place] [address] Assigned Nephrology Provider 12/27/22 06/21/24 Love Hernandez PA-C 6363 [facility] 500 [place] [address] Assigned Surgical Provider 01/17/23 [place] [address] [place] [address] Assigned Gastroenterology Provider 07/23/23 Everardo Grant MD 9 [place] [address] Physician Infectious Diseases 09/23/23 Rey Billings MD [address] [place] [address] 470855 Assigned Infectious Disease Provider 10/23/23 Conrado Evans MD [address] [place] [address] 353 [facility] 1932 [place], [place] [address] Nephrology 08/25/24 Delvin Lopez MD [address] [place] [address] 384655 Nephrology 08/25/24 Carissa Putnam RN [facility] [address] [place] [address]684 Specialty Fire Ranger Pharmacy 10/10/24 10/10/24 documented as of this encounter
--- OUTSIDE RECORDS SUMMARY | 2024-10-13 08:59 | XMS_ITS | Encounter Summary ---
Author Organization [facility] Address [address] [place] [address] Care Team Providers Care Stave Hewer Name Role Phone Robert Marley MD Primary Care Provider Chana Cheng MD Unavailable [phone] Anoop Garcia MD Unavailable Unavailable Barbara Carlson MD Unavailable Tayo Lacey MD Unavailable [phone] TuBasil shaikh MD Unavailable Charleen Lynne MD Unavailable [phone] Olimpia Williamson RN Unavailable [phone] Rin Dewitt RN Unavailable [phone] Rin Dewitt RN Unavailable [phone] Qian Rodriguez MD Unavailable [phone] Sherri Kingston Unavailable [phone] Olimpia Williamson RN Unavailable [phone] Olimpia Williamson RN Unavailable [phone] Christopher Quiroga MD Unavailable Claudia Yousif RN Unavailable Lance Simpson PA-C Unavailable [phone] Olimpia Williamson RN Unavailable [phone] Sherri Kingston Unavailable Delvin Bob MD Unavailable Charleen Lynne MD Unavailable [phone] ChapaShakira zelaya MD Unavailable Unav ailable AmbarZoltan soares ADRIANM Unavailable [phone] Delvin Bob MD Unavailable Shante Mathisony Jaden LÓPEZ Unavailable + Sherri Kingston Unavailable Pedro Winchester MD Unavailable ChapaShakira zelaya MD Unavailable Unav ailable Jovanni Dempsey MD Unavailable [phone] Jovanni Dempsey MD Unavailable [phone] Lne Hooks MD Unavailable Delvin Bob MD Unavailable Love Hernandez PA-C Unavailable Conrado Evans MD Unavailable [phone] Love Hernandez PA-C Unavailable [phone] Gordy Nickerson MD Unavailable Everardo Grant MD Unavailable Rey Billings MD Unavailable Conrado Evans MD Unavailable [phone] Delvin Lopez MD Unavailable [phone] Carissa Putnam RN Unavailable [phone] Encounter Details Date Type Department Care Team (Late st Contact Info) Description 01/05/2015 External Order Results [facility] Clinic [address] [address] Social History Tobacco Use Types Packs/Day Years Used Date Smoking Tobacco: Former Smokeless Tobacco: Never Alcohol Use Standard Drinks/Week Comments No 0 (1 standard drink = 0.6 oz pur e alcohol) Comments No Sex and Gender Information Value Date Recorded Sex Assigned at Not on file Legal Sex Female 3:26 AM BROOMCORN SEEDER Gender Identity Not on file Sexual Orientation Not on file Occupation Industry Job Start Date Job End Date Not on file Not on file Not on file Not on file documented as of this encounter Progress Notes * Cherelle Carrasco - 02/16/2015 8:59 AM CSTOrder(s) created erroneously. Erroneous order ID: [id number] Order canceled by: CHERELLE CARRASCO Order cancel date/time: 02/16/2015 8:59 AM MCORN SEEDER documented in this encounter Plan of Treatment Upcoming Encounters Date Type Department Care Team (Late st Contact Info) Description 10/25/2024 10:00 AM CDT Virtual Visit [facility] [address] [place] [address] Edith Brito 10/26/2024 8:30 AM CDT Lab [facility] [address] [place] 200 [place] [phone] Conrado Evans MD 717 [facility] 353 [facility] 1932 [place], [place] [address] documented as of this encounter Visit Diagnoses [...] the IP on-call for review. Meena Torres, [employer] Infection Prevention 07/11/2019 at [...] Out COVID-19 04/19/2020 04/19/2020 04/19/2020 1:56 PM BROOMCORN SEEDER Rule Out COVID-19 04/19/2020 04/20/2020 04/20/2020 6:34 AM BROOMCORN SEEDER Rule Out COVID-19 12/15/2020 12/15/2020 12/15/2020 4:33 PM CDT Rule Out C-difficile 01/06/2021 01/08/2021 021 11:43 AM BROOMCORN SEEDER Rule Out C-difficile 07/10/2021 07/10/2021 022 5:56 PM CDT Rule Out C-difficile 07/16/2023 07/16/2023 024 9:21 PM CDT Rule Out Parvovirus 07/16/2023 07/16/2023 07/19/19 24 12:29 PM CDT Parvovirus 07/16/2023 07/16/2023 10/03/2024 4:22 PM CDT [id number] Comment:This patient was exposed to a person with a known CP-FABRICATION SPECIALIST and has the potential for having acquired this pathogen of concern. The [place] Department of Health ([facility]) and CDC recommend that we screen this patient to prevent the spread of these organisms within our healthcare facility. Infection Prevention has placed orders for collecting a rectal swab for CP-FABRICATION SPECIALIST to evaluate if this patient is [...] Sharepoint page. 08/04/2023 08/04/2023 02/02/2024 11:39 PM BROOMCORN SEEDER Rule Out Parvovirus 09/28/2023 09/28/2023 10/05/19 11:41 PM CDT documented as of this encounter Care Teams Stave Hewer Relationship Specialty Start Date End Date Robert Marley MD [facility] [id number] [place] [address] PCP - General Family Practice 12/08/10 Chana Cheng MD [facility] [address] [place] [address] Nephrology 05/26/14 11/12/15 Anoop Garcia MD [facility] [address] [place] [address] Transplant 05/26/14 02/02/18 Barbara Carlson MD [address] [place] [address] Referring Physician Nephrology 08/30/14 11/12/15 Tayo Lacey MD [address] [place] [address] Cardiology 08/30/14 Basil Plummer MD [address] [place], [place] [address] Neurology 05/09/15 04/23/16 Charleen Lynne MD 909 [place], [place] [address] Oncology 06/14/15 12/19/18 Olimpia Williamson, RN Nurse Coordinator Oncology 06/14/15 04/23/16 Rin Dewitt RN Nurse Coordinator Neurology 07/24/15 04/23/16 Rin Dewitt RN Nurse Coordinator Neurology 10/25/15 10/12/17 Qian Rodriguez MD 717 [facility] 353 [place], [place] [address] Nephrology 11/13/15 06/16/16 Sherri Kingston PA 420 [facility] 394 [place], [place] [address] Physician Territory Outside Sales Manager Physician Territory Outside Sales Manager 03/20/16 Olimpia Williamson, RN Nurse Coordinator Oncology 06/26/16 06/26/16 Olimpia Williamson, RN Nurse Coordinator Oncology 06/26/16 06/16/18 Christopher Quiroga MD [facility] [address] 200 [place], [place] [address] Oncology 07/02/16 Claudia Yousif, RN Nurse Coordinator Gastroenterology 02/09/17 09/16/22 Lance Simpson PA-C [address] [place] [address] Physician Territory Outside Sales Manager Physician Territory Outside Sales Manager 01/07/18 Olimpia Williamson, SONIA Specialty Fire Fighting Equipment Specialist Hematology & Oncology 05/06/18 12/19/18 Sherri Kingston PA [address] [place] [address] Urology [place], [place] [address] Physician Territory Outside Sales Manager Physician Territory Outside Sales Manager 12/21/18 Delvin Bob MD [address] [place] [address] 574815 Internal Medicine 11/11/19 Charleen Lynne MD 909 [place], [place] 0[address] Assigned Cancer Care Provider 12/23/19 03/23/21 Shakira Chapa MD INACTIVE IN [place] OF 06/29/2020 Assigned Surgical Provider 12/23/19 07/14/20 Zoltan Eric DPM [address] [facility] [address] [place] [address] Assigned Musculoskeletal Provider 12/23/19 07/26/21 Delvin Bob MD 420 [facility] 250 [place], [place] [address] Assigned PCP 12/08/19 02/14/22 Maximo Mathis DO 909 [place] [address] Assigned Neuroscience Provider 02/12/20 08/09/21 Sherri Kingston PA 909 [facility] [place] [address] Assigned Surgical Provider 07/15/20 10/06/20 Pedro Winchester MD 6405 [place], [place] [address] Assigned Heart and Vascular Provider 08/05/20 01/31/22 Shakira Chapa MD [place]CTIVE IN [place] OF 06/29/2020 Assigned Surgical Provider 10/07/20 10/13/20 Jovanni Dempsey MD 600 [place], [place] [address] Assigned Nephrology Provider 03/24/21 03/14/22 Jovanni Dempsey MD 600 [place], [place] 3136[address] Assigned Nephrology Provider 03/15/22 03/21/22 Len Hooks MD 717 [facility] [place] 353 [place] [address] Assigned Nephrology Provider 03/22/22 12/26/22 Delvin Bob MD 420 [facility] 250 [place] [address] Assigned PCP 04/26/22 12/12/22 Love Hernandez PA-C [address] [facility] [place] 500 [place] [address] Physician Territory Outside Sales Manager Urology 12/01/22 Conrado Evans MD [address] [place] [address] Assigned Nephrology Provider 12/27/22 06/21/24 Love Hernandez PA-C [address] [place] 500 [place], [place] [address] Assigned Surgical Provider 01/17/23 [place] [address] [place] [address] Assigned Gastroenterology Provider 07/23/23 Everardo Grant MD [address] [place] [address] 493415 Physician Infectious Diseases 09/23/23 Rey Billings MD [address] [place] [address] 766495 Assigned Infectious Disease Provider 10/23/23 Conrado Evans MD [address] [place] [address] Nephrology 08/25/24 Delvin Lopez MD [address] [place] [address] Nephrology 08/25/24 Carissa Putnam, RN [facility] [address] [place] [address] Specialty Fire Fighting Equipment Specialist Pharmacy 10/10/24 10/10/24 documented as of this encounter
--- OUTSIDE RECORDS SUMMARY | 2024-10-13 08:59 | XMS_ITS | Encounter Summary ---
Author Organization [facility] Address [address] [place] [address] Care Team Providers Care Fine Grade Operator Name Role Phone Robert Marley MD Primary Care Provider Chana Cheng MD Unavailable [phone] Anoop Garcia MD Unavailable Unavailable Barbara Carlson MD Unavailable Tayo Lacey MD Unavailable [phone] TuBasil shaikh MD Unavailable Charleen Lynne MD Unavailable [phone] Olimpia Williamson RN Unavailable [phone] Rin Dewitt RN Unavailable [phone] Rin Dewitt RN Unavailable [phone] Qian Rodriguez MD Unavailable [phone] Sherri Kingston Unavailable [phone] Olimpia Williamson RN Unavailable [phone] Olimpia Williamson RN Unavailable [phone] Christopher Quiroga MD Unavailable Claudia Yousif RN Unavailable Lance Simpson PA-C Unavailable [phone] Olimpia Williamson RN Unavailable [phone] Sherri Kingston Unavailable Delvin Bob MD Unavailable Charleen Lynne MD Unavailable [phone] ChapaShakira zelaya MD Unavailable Unav ailable AmbarZoltan soares ADRIANM Unavailable [phone] Delvin Bob MD Unavailable Shante Mathisony Jaden LÓPEZ Unavailable + Sherri Kingston Unavailable Pedro Winchester MD Unavailable ChapaShakira zelaya MD Unavailable Unav ailable Jovanni Dempsey MD Unavailable Jovanni Dempsey MD Unavailable [phone] Len Hooks MD Unavailable Delvin Bob MD Unavailable Love Hernandez PA-C Unavailable [phone] Conrado Evans MD Unavailable Love Hernandez PA-C Unavailable [phone] Gordy Nickerson MD Unavailable Everardo Grant MD Unavailable Rey Billings MD Unavailable Conrado Evans MD Unavailable Delvin Lopez MD Unavailable [phone] Carissa Putnam RN Unavailable [phone] Encounter Details Date Type Department Care Team (Late st Contact Info) Description 03/13/2015 External Order Results [facility] Clinic [address] [address] [address] Social History Tobacco Use Types Packs/Day Years Used Date Smoking Tobacco: Former Smokeless Tobacco: Never Alcohol Use Standard Drinks/Week Comments No 0 (1 standard drink = 0.6 oz pur e alcohol) Comments No Sex and Gender Information Value Date Recorded Sex Assigned at Not on file Legal Sex Female 3:26 AM CREW PERSON Gender Identity Not on file Sexual Orientation Not on file Occupation Industry Job Start Date Job End Date Not on file Not on file Not on file Not on file documented as of this encounter Plan of Treatment Upcoming Encounters Date Type Department Care Team (Late st Contact Info) Description 10/25/2024 10:00 AM CDT Virtual Visit [facility] [address] [place] [address] Edith Brito 10/26/2024 8:30 AM CDT Lab [facility] Medical Ctr [facility] [address] [facility] 200 [place] [address] Conrado Evans MD 717 [facility] 353 [facility] 1932 [place], [place] [address] documented as of this encounter Procedures Procedure Name Priority Date/Time Associated Diagnosis Comments EXTERNAL LAB RESULTS Routine 03/13/2015 1:15 PM CREW PERSON documented in this encounter Results * (ABNORMAL) TXP External Lab Result (03/13/2015 1:15 PM CREW PERSON) WBC Count (External) 2.12(L) 5.00 - 10.00 k/ul LABDE SCAN RBC Count (External) 5.12(H) 3.90 - 5.03 m/ul LABDE SCAN Hemoglobin (External) 12.6 12.0 - 15.5 GM/DL LABDE SCAN Hematocrit (External) 40.1 34.9 - 44.5 % LABDE SCAN MCV (External) 78(L) 82 - 98 FL LABDE SCAN MCH (External) 25(L) 27 - 34 PG LABDE SCAN MCHC (External) 31(L) 32 - 36 GM/DL LABDE SCAN Platelet Count (External) 185 150 - 450 K/UL LABDE SCAN % Neutrophils (External) 63.2 50.0 - 70.0 % LABDE SCAN % Lymphocytes (External) 18.4(L) 25.0 - 45.0 % LABDE SCAN % Monocytes (External) 13.2(H) 0.00 - 11.0 % LABDE SCAN % Eosinophils (External) 3.3 0.0 - 7.0 % LABDE SCAN % Basophils (External) 1.4 0.0 - 3.0 % LABDE SCAN Absolute Neutrophils (External) 1.34(L) 1.70 - 7.00 K/UL LABDE SCAN Absolute Lymphocytes (External) 0.39(L) 0.90 - 2.90 K/UL LABDE SCAN Absolute Monocytes (External) 0.28(L) 0.30 - 0.90 K/UL LABDE SCAN Absolute Eosinophils (External) 0.07 0.00 - 0.50 % LABDE SCAN Absolute Basophils (External) 0.03 0.00 - 0.20 K/UL LABDE SCAN 03/13/2015 1:15 PM CREW PERSON Narrative BOBBY PFT - 03/13/2015 3:14 PM CREW PERSON Verified by Vi Dominguez on 03/13/2015. us Patient Reported LABORATORY Edited Result - [...] Out COVID-19 04/19/2020 04/19/2020 04/19/2020 1:56 PM CREW PERSON Rule Out COVID-19 04/19/2020 04/20/2020 04/20/2020 6:34 AM CREW PERSON Rule Out COVID-19 12/15/2020 12/15/2020 12/15/2020 4:33 PM CDT Rule Out C-difficile 01/06/2021 01/08/2021 021 11:43 AM CREW PERSON Rule Out C-difficile 07/10/2021 07/10/2021 022 5:56 PM CDT Rule Out C-difficile 07/16/2023 07/16/2023 024 9:21 PM CDT Rule Out Parvovirus 07/16/2023 07/16/2023 07/19/19 24 12:29 PM CDT Parvovirus 07/16/2023 07/16/2023 10/03/2024 4:22 PM CDT [id number] Comment:This patient was exposed to a person with a known CP-VIDEO GAME PROGRAMMER and has the potential for having acquired this pathogen of concern. The [place] Department of Health ([facility]) and CDC recommend that we screen this patient to prevent the spread of these organisms within our healthcare facility. Infection Prevention has placed orders for collecting a rectal swab for CP-VIDEO GAME PROGRAMMER to evaluate if this patient is now a carrier. This patient was identified to have a low risk exposure in which case Contact Precautions are not necessary unless the patient tests positive. Screening is voluntary. Please notify Infection Prevention if the patient declines testing. Additional information and resources can be found on the Infection Prevention MDRO Sharepoint page. 08/04/2023 08/04/2023 02/02/2024 11:39 PM CREW PERSON Rule Out Parvovirus 09/28/2023 09/28/2023 10/05/19 11:41 PM CDT documented as of this encounter Care Teams Fine Grade Operator Relationship Specialty Start Date End Date Robert Marley MD [facility] [id number] [place] [address] PCP - General Family Practice 12/08/10 Chana Cheng MD [facility] [address] [place] [address] Nephrology 05/26/14 11/12/15 Anoop Garcia MD [facility] [address] [place] [address] Transplant 05/26/14 02/02/18 Barbara Carlson MD [address] [place] [address] Referring Physician Nephrology 08/30/14 11/12/15 Tayo Lacey MD [address] [place] [address] Cardiology 08/30/14 Basil Plummer MD 909 [place] [address] Neurology 05/09/15 04/23/16 Charleen Lynne MD 909 [place], [place] 546265 MD Oncology 06/14/15 12/19/18 Olimpia Williamson, RN Nurse Coordinator Oncology 06/14/15 04/23/16 Rin Dewitt RN Nurse Coordinator Neurology 07/24/15 04/23/16 Rin Dewitt RN Nurse Coordinator Neurology 10/25/15 10/12/17 Qian Rodriguez MD [address] [place] [address] 353 [place], [place] 716424 Nephrology 11/13/15 06/16/16 Sherri Kingston PA 420 [facility] 394 [place], [place] [address] Physician Bag Mender Physician Bag Mender 03/20/16 Olimpia Williamson, SONIA Nurse Coordinator Oncology 06/26/16 06/26/16 Olimpia Williamson, RN Nurse Coordinator Oncology 06/26/16 06/16/18 Christopher Quiroga MD [facility] [address] 200 [place] [address] Oncology 07/02/16 Claudia Yousif RN Nurse Coordinator Gastroenterology 02/09/17 09/16/22 Lance Simpson PA-C [address] [place] [address] Physician Bag Mender Physician Bag Mender 01/07/18 Olimpia Williamson, SONIA Specialty Show Host/Hostess Hematology & Oncology 05/06/18 12/19/18 Sherri Kingston PA 909 [facility] Urology [place], [place] 394825 Physician Bag Mender Physician Bag Mender 12/21/18 Delvin Bob MD [address] [place] [address] [id number] Internal Medicine 11/11/19 Charleen Lynne MD [address] [place] [address] 440925 Assigned Cancer Care Provider 12/23/19 03/23/21 Shakira Chapa MD [facility] [place] 06/29/2020 Assigned Surgical Provider 12/23/19 07/14/20 Zoltan Eric DPM 20888 [facility] 300 [place] [address] Assigned Musculoskeletal Provider 12/23/19 07/26/21 Delvin Bob MD [address] [place] [address] 216105 Assigned PCP 12/08/19 02/14/22 Maximo Mathis DO [address] [place] [address] Assigned Neuroscience Provider 02/12/20 08/09/21 Sherri Kingston PA 909 [facility] [place] [address] Assigned Surgical Provider 07/15/20 10/06/20 Pedro Winchester MD [address] [place] [address] Assigned Heart and Vascular Provider 08/05/20 01/31/22 Shakira Chapa MD [facility] [place] 06/29/2020 Assigned Surgical Provider 10/07/20 10/13/20 Jovanni Dempsey MD 600 [place], [place] 003912 Assigned Nephrology Provider 03/24/21 03/14/22 Jovanni Dempsey MD 600 [place], [place] 679082 Assigned Nephrology Provider 03/15/22 03/21/22 Len Hooks MD 717 [facility] 353 [place] [address] Assigned Nephrology Provider 03/22/22 12/26/22 Delvin Bob MD 420 [facility] 250 [place], [place] 438855 Assigned PCP 04/26/22 12/12/22 Love Hernandez PA-C [address] [facility] [address] [place] [address] Physician Bag Mender Urology 12/01/22 Conrado Evans MD [address] [place] [address] Assigned Nephrology Provider 12/27/22 06/21/24 Love Hernandez PA-C 6363 [facility] 500 [place], [place] 318765 Assigned Surgical Provider 01/17/23 [place] [address] [address], [place] 979[address] Assigned Gastroenterology Provider 07/23/23 Everardo Grant MD [address] [place] [address] 771705 Physician Infectious Diseases 09/23/23 Rey Billings MD [address] [place] [address] 122835 Assigned Infectious Disease Provider 10/23/23 Conrado Evans MD [address] [place] [address] Nephrology 08/25/24 Delvin Lopez MD [address] [place] [address] 636345 Nephrology 08/25/24 Carissa Putnam, RN [facility] [address] [place] [address] Specialty Show Host/Hostess Pharmacy 10/10/24 10/10/24 documented as of this encounter
--- OUTSIDE RECORDS SUMMARY | 2024-10-13 08:59 | XMS_ITS | Encounter Summary ---
Author Organization [facility] Address [address] [place] [address] Care Team Providers Care Last Pattern Grader Name Role Phone Robert Marley MD Primary Care Provider Chana Cheng MD Unavailable [phone] Anoop Garcia MD Unavailable Unavailable Barbara Carlson MD Unavailable Tayo Lacey MD Unavailable [phone] TuBasil shaikh MD Unavailable Charleen Lynne MD Unavailable [phone] Olimpia Williamson RN Unavailable [phone] Rin Dewitt RN Unavailable [phone] Rin Dewitt RN Unavailable [phone] Qian Rodriguez MD Unavailable [phone] Sherri Kingston Unavailable [phone] Olimpia Williamson RN Unavailable [phone] Olimpia Williamson RN Unavailable [phone] Christopher Quiroga MD Unavailable Claudia Yousif RN Unavailable Lance Simpson PA-C Unavailable [phone] Olimpia Williamson RN Unavailable [phone] Sherri Kingston Unavailable Delvin Bob MD Unavailable Charleen Lynne MD Unavailable [phone] ChapaShakira zelaya MD Unavailable Unav ailable AmbarZoltan soares ADRIANM Unavailable [phone] Delvin Bob MD Unavailable Shante Mathisony Jaden LÓPEZ Unavailable + Sherri Kingston Unavailable Pedro Winchester MD Unavailable ChapaShakira zelaya MD Unavailable Unav ailable Jovanni Dempsey MD Unavailable Jovanni Dempsey MD Unavailable [phone] Len Hooks MD Unavailable Delvin Bob MD Unavailable Love Hernandez PA-C Unavailable Conrado Evans MD Unavailable Love Hernandez PA-C Unavailable Gordy Nickerson MD Unavailable Everardo Grant MD Unavailable Rey Billings MD Unavailable [phone] Conrado Evans MD Unavailable Delvin Lopez MD Unavailable [phone] Carissa Putnam RN Unavailable [phone] Encounter Details Date Type Department Care Team (Late st Contact Info) Description 03/01/2015 External Order Results [facility] Clinic [address]A [address] [address] Social History Tobacco Use Types Packs/Day Years Used Date Smoking Tobacco: Former Smokeless Tobacco: Never Alcohol Use Standard Drinks/Week Comments No 0 (1 standard drink = 0.6 oz pur e alcohol) Comments No Sex and Gender Information Value Date Recorded Sex Assigned at Not on file Legal Sex 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 Gender Identity Not on file Sexual Orientation Not on file Occupation Industry Job Start Date Job End Date Not on file Not on file Not on file Not on file documented as of this encounter Plan of Treatment Upcoming Encounters Date Type Department Care Team (Late st Contact Info) Description 10/25/2024 10:00 AM CDT Virtual Visit [facility] [place] [facility] [address] [place] [address] Edith Brito 10/26/2024 8:30 AM CDT Lab [facility] [address] [facility] 200 [place] [address] Conrado Evans MD 717 [facility] 353 [facility] 1932 [place] [address] documented as of this encounter Visit Diagnoses [...] the IP on-call for review. Meena Torres [facility] Infection Prevention 07/11/2019 at 3:56 PM [...] Out COVID-19 04/19/2020 04/19/2020 04/19/2020 1:56 PM PAPER CUTTING MACHINE OPERATOR Rule Out COVID-19 04/19/2020 04/20/2020 04/20/2020 6:34 AM PAPER CUTTING MACHINE OPERATOR Rule Out COVID-19 12/15/2020 12/15/2020 12/15/2020 4:33 PM CDT Rule Out C-difficile 01/06/2021 01/08/2021 021 11:43 AM PAPER CUTTING MACHINE OPERATOR Rule Out C-difficile 07/10/2021 07/10/2021 022 5:56 PM CDT Rule Out C-difficile 07/16/2023 07/16/2023 024 9:21 PM CDT Rule Out Parvovirus 07/16/2023 07/16/2023 07/19/19 24 12:29 PM CDT Parvovirus 07/16/2023 07/16/2023 10/03/2024 4:22 PM CDT [id number] Comment:This patient was exposed to a person with a known CP-SAIL REPAIR PERSON and has the potential for having acquired this pathogen of concern. The [place] Department of Health ([facility]) and CDC recommend that we screen this patient to prevent the spread of these organisms within our healthcare facility. Infection Prevention has placed orders for collecting a rectal swab for CP-SAIL REPAIR PERSON to evaluate if this patient is now a carrier. This patient was identified to have a low risk exposure in which case Contact Precautions are not necessary unless the patient tests positive. Screening is voluntary. Please notify Infection Prevention if the patient declines testing. Additional information and resources can be found on the Infection Prevention MDRO Sharepoint page. 08/04/2023 08/04/2023 02/02/2024 11:39 PM PAPER CUTTING MACHINE OPERATOR Rule Out Parvovirus 09/28/2023 09/28/2023 10/05/19 11:41 PM CDT documented as of this encounter Care Teams Last Pattern Grader Relationship Specialty Start Date End Date Robert Marley MD [address] [address] PCP - General Family Practice 12/08/10 Chana Cheng MD [facility] [address] [place] [address] Nephrology 05/26/14 11/12/15 Anoop Garcia MD [facility] [address] [place] [address] Transplant 05/26/14 02/02/18 Barbara Carlson MD [address] [place] [address] Referring Physician Nephrology 08/30/14 11/12/15 Tayo Lacey MD [address] [place] [address] Cardiology 08/30/14 Basil Plummer MD [address] [place] [address] 636175 Neurology 05/09/15 04/23/16 Charleen Lynne MD [address] [place] [address] MD Oncology 06/14/15 12/19/18 Olimpia Williamson, RN Nurse Coordinator Oncology 06/14/15 04/23/16 Rin Dewitt RN Nurse Coordinator Neurology 07/24/15 04/23/16 Rin Dewitt RN Nurse Coordinator Neurology 10/25/15 10/12/17 Qian Rodriguez MD 717 [facility] 353 [place], [place] [address] Nephrology 11/13/15 06/16/16 Sherri Kingston PA 420 [facility] 394 [place], [place] [address]695 Physician Motorcoach Driver Physician Motorcoach Driver 03/20/16 Olimpia Williamson, RN Nurse Coordinator Oncology 06/26/16 06/26/16 Olimpia Williamson, RN Nurse Coordinator Oncology 06/26/16 06/16/18 Christopher Quiroga MD [facility] 675 [address] [facility] 200 [place], [place] [address] MD Oncology 07/02/16 Claudia Yousif, RN Nurse Coordinator Gastroenterology 02/09/17 09/16/22 Lance Simpson PA-C [address] [place] [address] Physician Motorcoach Driver Physician Motorcoach Driver 01/07/18 Olimpia Williamson, RN Specialty Nuclear Fuels Reclamation Engineer Hematology & Oncology 05/06/18 12/19/18 Sherri Kingston PA [address] [place] [address] 094925 Physician Motorcoach Driver Physician Motorcoach Driver 12/21/18 Delvin Bob MD [address] [place] [address] 250 [place], [place] 153985 Internal Medicine 11/11/19 Charleen Lynne MD [address] [place] [address] 634985 Assigned Cancer Care Provider 12/23/19 03/23/21 Shakira Chapa MD [place]IVE IN [place] OF 06/29/2020 Assigned Surgical Provider 12/23/19 07/14/20 Zoltan Eric DPM [address] [facility] [address] [place] [address] Assigned Musculoskeletal Provider 12/23/19 07/26/21 Delvin Bob MD [address] [place] [address] 250 [place] [address] Assigned PCP 12/08/19 02/14/22 Maximo Mathis DO [address] [place] [address] 858845 Assigned Neuroscience Provider 02/12/20 08/09/21 Sherri Kingston PA [address] [place] [address] Assigned Surgical Provider 07/15/20 10/06/20 Pedro Winchester MD [address] [place] [address] Assigned Heart and Vascular Provider 08/05/20 01/31/22 Shakira Chapa MD [place] [place] OF 06/29/2020 Assigned Surgical Provider 10/07/20 10/13/20 Jovanni Dempsey MD 600 [place], [place] 675582 Assigned Nephrology Provider 03/24/21 03/14/22 Jovanni Dempsey MD 600 [place], [place] 121942 Assigned Nephrology Provider 03/15/22 03/21/22 Len Hooks MD 717 [facility] 353 [place], [place] [address]1954 Assigned Nephrology Provider 03/22/22 12/26/22 Delvin Bob MD 420 [facility] 250 [place] [address] Assigned PCP 04/26/22 12/12/22 Love Hernandez PA-C [address] [facility] 500 [place] [address] Physician Motorcoach Driver Urology 12/01/22 Conrado Evans MD 717 [facility] 353 [facility] [address] [place] [address] Assigned Nephrology Provider 12/27/22 06/21/24 Love Hernandez PA-C 6363 [facility] 500 [place] [address] Assigned Surgical Provider 01/17/23 [place] [address] [place] [address] Assigned Gastroenterology Provider 07/23/23 Everardo Grant MD [address] [place] [address] Physician Infectious Diseases 09/23/23 Rey Billings MD [address] [place] [address] Assigned Infectious Disease Provider 10/23/23 Conrado Evans MD [address] [place] [address] 353 [facility] 1931 [place] [address] Nephrology 08/25/24 Delvin Lopez MD [address] [place] [address] Nephrology 08/25/24 Carissa Putnam RN [facility] [address] [place] [address] 905344 Specialty Nuclear Fuels Reclamation Engineer Pharmacy 10/10/24 10/10/24 documented as of this encounter
--- OUTSIDE RECORDS SUMMARY | 2024-10-13 09:00 | XMS_ITS | Encounter Summary ---
Author Organization [place] Address [address] [place] [address] Care Team Providers Care Police Detective Name Role Phone Robert Marley MD Primary Care Provider Chana Cheng MD Unavailable [phone] Anoop Garcia MD Unavailable Unavailable Barbara Carlson MD Unavailable Tayo Lacey MD Unavailable [phone] TuBasil shaikh MD Unavailable Charleen Lynne MD Unavailable [phone] Olimpia Williamson RN Unavailable [phone] Rin Dewitt RN Unavailable [phone] Rin Dewitt RN Unavailable [phone] Qian Rodriguez MD Unavailable [phone] Sherri Kingston Unavailable [phone] Olimpia Williamson RN Unavailable [phone] Olimpia Williamson RN Unavailable [phone] Christopher Quiroga MD Unavailable Claudia Yousif RN Unavailable Lance Simpson PA-C Unavailable [phone] Olimpia Williamson RN Unavailable [phone] Sherri Kingston Unavailable Delvin Bob MD Unavailable Charleen Lynne MD Unavailable [phone] ChapaShakira zelaya MD Unavailable Unav ailable AmbarZoltan soares ADRIANM Unavailable [phone] Delvin Bob MD Unavailable Shante Mathisony Jaden LÓPEZ Unavailable + Sherri Kingston Unavailable Pedro Winchester MD Unavailable ChapaShakira zelaya MD Unavailable Unav ailable Jovanni Dempsey MD Unavailable [phone] Jovanni Dempsey MD Unavailable Len Hooks MD Unavailable Delvin Bob MD Unavailable [phone] Love Hernandez PA-C Unavailable Conrado Evans MD Unavailable [phone] Love Hernandez PA-C Unavailable Gordy Nickerson MD Unavailable Everardo Grant MD Unavailable Rey Billings MD Unavailable Conrado Evans MD Unavailable [phone] Delvin Lopez MD Unavailable [phone] Carissa Putnam RN Unavailable [phone] Encounter Details Date Type Department Care Team (Late st Contact Info) Description 11/15/2014 External Order Results [facility] [address] [address] Social History Tobacco Use Types Packs/Day Years Used Date Smoking Tobacco: Former Smokeless Tobacco: Never Alcohol Use Standard Drinks/Week Comments No 0 (1 standard drink = 0.6 oz pur e alcohol) Comments No Sex and Gender Information Value Date Recorded Sex Assigned at Not on file Legal Sex Female 3:26 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 PACKAGING CONSULTANT Gender Identity Not on file Sexual Orientation Not on file Occupation Industry Job Start Date Job End Date Not on file Not on file Not on file Not on file documented as of this encounter Plan of Treatment Upcoming Encounters Date Type Department Care Team (Late st Contact Info) Description 10/25/2024 10:00 AM CDT Virtual Visit [facility] [address] [place] [address] Edith Brito 10/26/2024 8:30 AM CDT Lab [facility] [address] [facility] 200 [place] [address] Conrado Evans MD 717 [facility] 353 [facility] [address] [place], [place] [address] documented as of this encounter Procedures Procedure Name Priority Date/Time Associated Diagnosis Comments EXTERNAL LAB RESULTS Routine 11/09/2014 9:30 AM CDT documented in this encounter Results * (ABNORMAL) TXP External Lab Result (11/09/2014 9:30 AM CDT) Calcium (External) 9.9 8.4 - 10.6 MG/DL LABDE SCAN Urea Nitrogen (External) 23 5 - 24 mg/dl LABDE SCAN Creatinine (External) 0.9 0.5 - 1.5 MG/DL LABDE SCAN Glucose (External) 86 60 - 115 mg/dL LABDE SCAN Sodium (External) 143 135 - 149 MMOL/L LABDE SCAN Potassium (External) 4.1 3.6 - 5.1 MMOL/L LABDE SCAN Chloride (External) 110 96 - 114 MMOL/L LABDE SCAN CO2 (External) 20 20 - 32 MMOL/L LABDE SCAN Amylase (External) 77 18 - 89 U/L LABDE SCAN Lipase Level (External) 89 23 - 300 U/L LABDE SCAN INR (External) 2.7(H) 0.88 - 1.12 LABDE SCAN WBC Count (External) 3.93(L) 5.00 - 10.00 K/UL LABDE SCAN RBC Count (External) 4.10 3.9 - 5.03 m/ul LABDE SCAN Hemoglobin (External) 10.5(L) 12.0 - 15.5 GM/DL LABDE SCAN Hematocrit (External) 33.7(L) 34.9 - 445 % LABDE SCAN MCV (External) 82 82 - 98 FL LABDE SCAN MCH (External) 26(L) 27 - 34 PG LABDE SCAN MCHC (External) 31(L) 32 - 36 GM/DL LABDE SCAN Platelet Count (External) 65 150 - 450 k/ul LABDE SCAN % Neutrophils (External) 69.2 50.0 - 70.0 % LABDE SCAN % Lymphocytes (External) 12.2(L) 25 - 45 % LABDE SCAN % Monocytes (External) 14.0(H) 0.00 - 11.0 % LABDE SCAN % Eosinophils (External) 3.8 0.0 - 7.0 % LABDE SCAN % Basophils (External) 0.8 0.0 - 3.0 % LABDE SCAN Absolute Neutrophils (External) 2.72 1.7 - 7.0 k/ul LABDE SCAN Absolute Lymphocytes (External) 0.48(L) 0.90 - 2.90 K/UL LABDE SCAN Absolute Monocytes (External) 0.55 0.30 - 0.90 k/ul LABDE SCAN Absolute Eosinophils (External) 0.15 0.0 - 0.53 k/ul LABDE SCAN Absolute Basophils (External) 0.03 0.00 - 0.20 k/ul LABDE SCAN % Immature Granulocytes (External) 0.0 % LABDE SCAN Absolute Immature Granulocytes (External) 0.00 K/UL LABDE SCAN 11/09/2014 9:30 AM CDT Neeta ROSALES PFJovan - 11/15/2014 9:55 AM CDT Verified by Florencia Capps on 11/15/2014. us Patient Reported LABORATORY Edited Result - Final SILVANATOYIN PFT LABDE SCAN documented in this encounter [...] the IP on-call for review. Meena Torres [facility] Infection Prevention 07/11/2019 at 3:56 PM 07/11/2019 07/11/2019 09/23/2019 10:03 AM CDT Rule Out COVID-19 07/24/2019 07/24/2019 07/25/2019 5:33 AM CDT 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, 06/03/15 urine 09/23/2019 09/23/2019 09/03/2019 11:12 AM CDT Rule Out COVID-19 09/27/2019 09/27/2019 09/27/2019 3:20 PM CDT VRE-Standard Precautions 11/01/2019 11/01/2019 5:40 PM CDT 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, 4/15 urine 12/26/2019 12/26/2019 Rule Out COVID-19 04/19/2020 04/19/2020 04/19/2020 1:56 PM APPLICATION PACKAGING CONSULTANT Rule Out COVID-19 04/19/2020 04/20/2020 04/20/2020 6:34 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 PACKAGING CONSULTANT Rule Out COVID-19 12/15/2020 12/15/2020 12/15/2020 4:33 PM CDT Rule Out C-difficile 01/06/2021 01/08/2021 021 11:43 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 PACKAGING CONSULTANT Rule Out C-difficile 07/10/2021 07/10/2021 022 5:56 PM CDT Rule Out C-difficile 07/16/2023 07/16/2023 024 9:21 PM CDT Rule Out Parvovirus 07/16/2023 07/16/2023 07/19/19 24 12:29 PM CDT Parvovirus 07/16/2023 07/16/2023 10/03/2024 4:22 PM CDT [id number] Comment:This patient was exposed to a person with a known CP-BUSINESS SPECIALIST and has the potential for having acquired this pathogen of concern. The [place] Department of [facility] ([facility]) and CDC recommend that we screen this patient to prevent the spread of these organisms within our healthcare facility. Infection Prevention has placed orders for collecting a rectal swab for CP-BUSINESS SPECIALIST to evaluate if this patient is [...] Sharepoint page. 08/04/2023 08/04/2023 02/02/2024 11:39 PM APPLICATION PACKAGING CONSULTANT Rule Out Parvovirus 09/28/2023 09/28/2023 10/05/19 24 11:41 PM CDT documented as of this encounter Care Teams Police Detective Relationship Specialty Start Date End Date Robert Marley MD [facility] [id number] [place] [address] PCP - General Family Practice 12/08/10 Chana Cheng MD [place] [address] [place] [address] Nephrology 05/26/14 11/12/15 Anoop Garcia MD [facility] [address] [place] [address] Transplant 05/26/14 02/02/18 Barbara Carlson MD [address] [place] [address] Referring Physician Nephrology 08/30/14 11/12/15 Tayo Lacey MD [address] [place] [address] Cardiology 08/30/14 Basil Plummer MD [address] [place] [address] 736745 Neurology 05/09/15 04/23/16 Charleen Lynne MD [address] [place] [address] [id number] MD Oncology 06/14/15 12/19/18 Olimpia Williamson, SONIA Nurse Coordinator Oncology 06/14/15 04/23/16 Rin Dewitt, RN Nurse Coordinator Neurology 07/24/15 04/23/16 Rin Dewitt, RN Nurse Coordinator Neurology 10/25/15 10/12/17 Qian Rodriguez MD [address] [place] [address] 353 [place], [place] 72[address] Nephrology 11/13/15 06/16/16 Sherri Kingston PA 420 [facility] 394 [place], [place] [address] Physician Floor Supervisor Physician Floor Supervisor 03/20/16 Olimpia Williamson, RN Nurse Coordinator Oncology 06/26/16 06/26/16 Olimpia Williamson, RN Nurse Coordinator Oncology 06/26/16 06/16/18 Christopher Quiroga MD [facility] [address] [address] MD Oncology 07/02/16 Claudia Yousif RN Nurse Coordinator Gastroenterology 02/09/17 09/16/22 Lance Simpson PA-C [address] [place] [address] 480815 Physician Floor Supervisor Physician Floor Supervisor 01/07/18 Olimpia Williamson, RN Specialty Benefits Director Hematology & Oncology 05/06/18 12/19/18 Sherri Kingston PA [address] [place] [address] Urology [place], [place] 6[address] Physician Floor Supervisor Physician Floor Supervisor 12/21/18 Delvin Bob MD [address] [place] [address] [id number] Internal Medicine 11/11/19 Charleen Lynne MD [address] [place] [address] 256535 Assigned Cancer Care Provider 12/23/19 03/23/21 Shakira Chapa MD INACTIVE IN [place] OF 06/29/2020 Assigned Surgical Provider 12/23/19 07/14/20 Zoltan Eric DPM [address] [facility] [address] [place] [address] Assigned Musculoskeletal Provider 12/23/19 07/26/21 Delvin Bob MD [address] [place] [address] 250 [place], [place] [address] Assigned PCP 12/08/19 02/14/22 Maximo Mathis DO [address] [place] [address] 907695 Assigned Neuroscience Provider 02/12/20 08/09/21 Sherri Kingston PA [address] [place] [address] [place] [address] Assigned Surgical Provider 07/15/20 10/06/20 Pedro Winchester MD 6405 [facility] [address] Assigned Heart and Vascular Provider 08/05/20 01/31/22 Shakira Chapa MD INACTIVE IN [place] OF 06/29/2020 Assigned Surgical Provider 10/07/20 10/13/20 Jovanni Dempsey MD 600 [place], [place] 9108[address] Assigned Nephrology Provider 03/24/21 03/14/22 Jovanni Dempsey MD 600 [place] [address] Assigned Nephrology Provider 03/15/22 03/21/22 Len Hooks MD 717 [facility] 353 [place] [address] Assigned Nephrology Provider 03/22/22 12/26/22 Delvin Bob MD [address] [place] [address] 250 [place], [place] 835315 Assigned PCP 04/26/22 12/12/22 Love Hernandez PA-C [address] [facility] 500 [place], [place] 15[address] Physician Floor Supervisor Urology 12/01/22 Conrado Evans MD 717 [facility] 353 [facility] [address] [place] [address] Assigned Nephrology Provider 12/27/22 06/21/24 Love Hernandez PA-C 6363 [facility] 500 [place], [place] [address] Assigned Surgical Provider 01/17/23 [place] [address] [place] [address] Assigned Gastroenterology Provider 07/23/23 Everardo Grant MD [address] [place] [address] 933815 Physician Infectious Diseases 09/23/23 Rey Billings MD [address] [place] [address] 867095 Assigned Infectious Disease Provider 10/23/23 Conrado Evans MD 717 [facility] 353 [facility] [address] [place] [address] Nephrology 08/25/24 Delvin Lopez MD 909 [place] [address] Nephrology 08/25/24 Carissa Putnam RN [facility] [address] [place] [address] Specialty Benefits Director Pharmacy 10/10/24 10/10/24 documented as of this encounter
--- OUTSIDE RECORDS SUMMARY | 2024-10-13 09:00 | XMS_ITS | Encounter Summary ---
Author Organization [place] Address [address] [place] [address] Care Team Providers Care Panel Monitor Name Role Phone Robert Marley MD Primary Care Provider Chana Cheng MD Unavailable [phone] Anoop Garcia MD Unavailable Unavailable Barbara Carlson MD Unavailable Tayo Lacey MD Unavailable [phone] TuBasil shaikh MD Unavailable Charleen Lynne MD Unavailable [phone] Olimpia Williamson RN Unavailable [phone] Rin Dewitt RN Unavailable [phone] Rin Dewitt RN Unavailable [phone] Qian Rodriguez MD Unavailable [phone] Sherri Kingston Unavailable [phone] Olimpia Williamson RN Unavailable [phone] Olimpia Williamson RN Unavailable [phone] Christopher Quiroga MD Unavailable Claudia Yousif RN Unavailable Lance Simpson PA-C Unavailable [phone] Olimpia Williamson RN Unavailable [phone] Sherri Kingston Unavailable Delvin Bob MD Unavailable [phone] Charleen Lynne MD Unavailable [phone] ChapaShakira zelaya MD Unavailable Unav ailable AmbarZoltan soares ADRIANM Unavailable [phone] Delvin Bob MD Unavailable Shante Mathisony Jaden LÓPEZ Unavailable + Sherri Kingston Unavailable Pedro Winchester MD Unavailable ChapaShakira zelaya MD Unavailable Unav ailable Jovanni Dempsey MD Unavailable [phone] Jovanni Dempsey MD Unavailable [phone] Len Hooks MD Unavailable Delvin Bob MD Unavailable Loev Hernandez PA-C Unavailable Conrado Evans MD Unavailable Love Hernandez PA-C Unavailable [phone] Gordy Nickerson MD Unavailable [phone] Everardo Grant MD Unavailable Rey Billings MD Unavailable Conrado Evans MD Unavailable Delvin Lopez MD Unavailable [phone] Carissa Putnam RN Unavailable [phone] Encounter Details Date Type Department Care Team (Late st Contact Info) Description 02/19/2015 External Order Results [facility] Clinic [address] [address] Social History Tobacco Use Types Packs/Day Years Used Date Smoking Tobacco: Former Smokeless Tobacco: Never Alcohol Use Standard Drinks/Week Comments No 0 (1 standard drink = 0.6 oz pur e alcohol) Comments No Sex and Gender Information Value Date Recorded Sex Assigned at Not on file Legal Sex Female 3:26 AM AMUSEMENT OR RECREATION CARD CHECKER Gender Identity Not on file Sexual Orientation Not on file Occupation Industry Job Start Date Job End Date Not on file Not on file Not on file Not on file documented as of this encounter Plan of Treatment Upcoming Encounters Date Type Department Care Team (Late st Contact Info) Description 10/25/2024 10:00 AM CDT Virtual Visit [facility] Health & [facility] [address] [place] [address] Edith Brito 10/26/2024 8:30 AM CDT Lab [facility] [address] [facility] 200 [place] [address] Conrado Evans MD 717 [facility] 353 [facility] [address] [place], [place] [address] documented as of this encounter Procedures Procedure Name Priority Date/Time Associated Diagnosis Comments EXTERNAL LAB RESULTS Routine 01/05/2015 9:50 AM AMUSEMENT OR RECREATION CARD CHECKER documented in this encounter Results * (ABNORMAL) TXP External Lab Result (01/05/2015 9:50 AM AMUSEMENT OR RECREATION CARD CHECKER) WBC Count (External) 4.23(L) 5.0 - 10.0 K/uL LABDE SCAN RBC Count (External) 4.97 3.9 - 5.03 M/uL LABDE SCAN Hemoglobin (External) 12.4 12.0 - 15.5 g/dL LABDE SCAN Hematocrit (External) 40.3 34.9 - 44.5 % LABDE SCAN MCV (External) 81(L) 82 - 98 fL LABDE SCAN MCH (External) 25(L) 27 - 34 pg LABDE SCAN MCHC (External) 31(L) 32 - 36 g/dL LABDE SCAN Platelet Count (External) 157 150 - 450 K/uL LABDE SCAN % Neutrophils (External) 73.8(H) 50.0 - 70.0 % LABDE SCAN % Lymphocytes (External) 12.3(L) 25.0 - 45.0 % LABDE SCAN % Monocytes (External) 10.4 0.0 - 11.0 % LABDE SCAN % Eosinophils (External) 2.8 0.0 - 7.0 % LABDE SCAN % Basophils (External) 0.5 0.0 - 3.0 % LABDE SCAN Absolute Neutrophils (External) 3.12 1.7 - 7.0 K/uL LABDE SCAN Absolute Lymphocytes (External) 0.52(L) 0.9 - 2.9 K/uL LABDE SCAN Absolute Monocytes (External) 0.44 0.3 - 0.9 K/uL LABDE SCAN Absolute Eosinophils (External) 0.12 0.0 - 0.5 K/uL LABDE SCAN Absolute Basophils (External) 0.02 0.0 - 0.2 K/uL LABDE SCAN Triglycerides (External) 132 40 - 150 mg/dL LABDE SCAN Cholesterol (External) 227(H) 90 - 200 mg/dL LABDE SCAN HDL Cholesterol (External) 65 >45 mg/dL LABDE SCAN LDL-Cholesterol (External) 136(H) <100 mg/dL LABDE SCAN ALT (External) 35 9 - 41 U/L LABDE SCAN AST (External) 62(H) 12 - 35 U/L LABDE SCAN Alk Phosphatase (External) 110 40 - 150 U/L LABDE SCAN Bilirubin Total (External) 0.6 0.0 - 1.5 mg/dL LABDE SCAN Bilirubin Direct (External) 0.3 0.0 - 0.5 mg/dL LABDE SCAN Albumin (External) 4.3 3.3 - 5.0 g/dL LABDE SCAN Protein Total (External) 7.2 6.0 - 8.3 g/dL LABDE SCAN Calcium (External) 9.9 8.4 - 10.6 mg/dL LABDE SCAN Urea Nitrogen (External) 24 5 - 24 mg/dL LABDE SCAN Creatinine (External) 1.2 0.5 - 1.5 mg/dL LABDE SCAN Glucose (External) 102 60 - 115 mg/dL LABDE SCAN Sodium (External) 145 135 - 149 mmol/L LABDE SCAN Potassium (External) 3.0(L) 3.6 - 5.1 mmol/L LABDE SCAN Chloride (External) 100 96 - 114 mmol/L LABDE SCAN CO2 (External) 34(H) 20 - 32 mmol/L LABDE SCAN Amylase (External) 65 18 - 89 U/L LABDE SCAN Phosphorus (External) 3.3 2.5 - 4.5 mg/dL LABDE SCAN Magnesium (External) 1.5 1.5 - 2.6 mg/dL LABDE SCAN Lipase Level (External) 47 23 - 300 U/L LABDE SCAN Protein Total Ur (External) 51 mg/dL LABDE SCAN Creatinine Urine mg/dL (External) 113 mg/dL LABDE SCAN Protein Total Ur per Cr (External) 0.45 LABDE SCAN Hemoglobin A1C (External) 4.8 4.8 - 5.9 % LABDE SCAN Mycophenolic Acid (External) <0.5(L) 1.0 - 3.5 ug/mL LABDE SCAN MPA Glucuronide (External) <5.0(L) 35.0 - 100.0 ug/mL LABDE SCAN Everolimus (External) 3.2 3.0 - 8.0 ng/mL LABDE SCAN 01/05/2015 9:50 AM AMUSEMENT OR RECREATION CARD CHECKER Narrative BOBBY PFT - 02/19/2015 11:22 AM AMUSEMENT OR RECREATION CARD CHECKER Verified by Guerrero Pinzon on 02/19/2015. us Patient Reported LABORATORY Edited Result - [...] the IP on-call for review. Meena Torres [facility] Infection Prevention 07/11/2019 at 3:56 [...] Out COVID-19 04/19/2020 04/19/2020 04/19/2020 1:56 PM AMUSEMENT OR RECREATION CARD CHECKER Rule Out COVID-19 04/19/2020 04/20/2020 04/20/2020 6:34 AM AMUSEMENT OR RECREATION CARD CHECKER Rule Out COVID-19 12/15/2020 12/15/2020 12/15/2020 4:33 PM CDT Rule Out C-difficile 01/06/2021 01/08/2021 021 11:43 AM AMUSEMENT OR RECREATION CARD CHECKER Rule Out C-difficile 07/10/2021 07/10/2021 022 5:56 PM CDT Rule Out C-difficile 07/16/2023 07/16/2023 024 9:21 PM CDT Rule Out Parvovirus 07/16/2023 07/16/2023 07/19/19 24 12:29 PM CDT Parvovirus 07/16/2023 07/16/2023 10/03/2024 4:22 PM CDT [id number] Comment:This patient was exposed to a person with a known CP-BULLET MAKER and has the potential for having acquired this pathogen of concern. The [place] Department of Health ([facility]) and CDC recommend that we screen this patient to prevent the spread of these organisms within our healthcare facility. Infection Prevention has placed orders for collecting a rectal swab for CP-BULLET MAKER to evaluate if this patient is now a carrier. This patient was identified to have a low risk exposure in which case Contact Precautions are not necessary unless the patient tests positive. Screening is voluntary. Please notify Infection Prevention if the patient declines testing. Additional information and resources can be found on the Infection Prevention MDRO Sharepoint page. 08/04/2023 08/04/2023 02/02/2024 11:39 PM AMUSEMENT OR RECREATION CARD CHECKER Rule Out Parvovirus 09/28/2023 09/28/2023 10/05/19 11:41 PM CDT documented as of this encounter Care Teams Panel Monitor Relationship Specialty Start Date End Date Robert Marley MD [address] [address] PCP - General Family Practice 12/08/10 Chana Cheng MD [facility] [address] [place] [address] Nephrology 05/26/14 11/12/15 Anoop Garcia MD [facility] [address] [place] [address] Transplant 05/26/14 02/02/18 Barbara Carlson MD [address] [place] [address] Referring Physician Nephrology 08/30/14 11/12/15 Tayo Lacey MD [address] [place] [address] Cardiology 08/30/14 Basil Plummer MD [address] [place] [address] Neurology 05/09/15 04/23/16 Charleen Lynne MD [address] [place] [address] MD Oncology 06/14/15 12/19/18 Olimpia Williamson, RN Nurse Coordinator Oncology 06/14/15 04/23/16 Rin Dewitt RN Nurse Coordinator Neurology 07/24/15 04/23/16 Rin Dewitt RN Nurse Coordinator Neurology 10/25/15 10/12/17 Qian Rodriguez MD 717 [facility] 353 [place] [address] Nephrology 11/13/15 06/16/16 Sherri Kingston PA 420 [facility] 394 [place], [place] [address] Physician White Mixing Operator Physician White Mixing Operator 03/20/16 Olimpia Williamson, SONIA Nurse Coordinator Oncology 06/26/16 06/26/16 Olimpia Williamson RN Nurse Coordinator Oncology 06/26/16 06/16/18 Christopher Quiroga MD [facility] [address] [place] [address] Oncology 07/02/16 Claudia Yousif RN Nurse Coordinator Gastroenterology 02/09/17 09/16/22 Lance Simpson PA-C [address] [place] [address] 409135 Physician White Mixing Operator Physician White Mixing Operator 01/07/18 Olimpia Williamson, SONIA Specialty District Loss Prevention Manager Hematology & Oncology 05/06/18 12/19/18 Sherri Kingston PA [address] [place] [address] [place] [address] Physician White Mixing Operator Physician White Mixing Operator 12/21/18 Delvin Bob MD [address] [place] [address] Internal Medicine 11/11/19 Charleen Lynne MD [address] [place] [address] 934515 Assigned Cancer Care Provider 12/23/19 03/23/21 Shakira Chapa MD INACTIVE IN [place] OF 06/29/2020 Assigned Surgical Provider 12/23/19 07/14/20 Zoltan Eric DPM [address] [address] Assigned Musculoskeletal Provider 12/23/19 07/26/21 Delvin Bob MD [address] [place] [address] 897755 Assigned PCP 12/08/19 02/14/22 Maximo Mathis DO [address] [place] [address] 478655 Assigned Neuroscience Provider 02/12/20 08/09/21 Sherri Kingston PA 909 [facility] [place] [address] Assigned Surgical Provider 07/15/20 10/06/20 Pedro Winchester MD [address] [place] [address] Assigned Heart and Vascular Provider 08/05/20 01/31/22 Shakira Chapa MD I[place]CTIVE IN [place] OF 06/29/2020 Assigned Surgical Provider 10/07/20 10/13/20 Jovanni Dempsey MD 600 [place], [place] 295892 Assigned Nephrology Provider 03/24/21 03/14/22 Jovanni Dempsey MD 600 [place], [place] 950072 Assigned Nephrology Provider 03/15/22 03/21/22 Len Hooks MD 717 [facility] 353 [place] [address] Assigned Nephrology Provider 03/22/22 12/26/22 Delvin Bob MD 420 [facility] 250 [place], [place] 3[address] Assigned PCP 04/26/22 12/12/22 Love Hernandez PA-C [address] [facility] [address] [place] [address] Physician White Mixing Operator Urology 12/01/22 Conrado Evans MD [address] [place] [address] [address] [place] [address] Assigned Nephrology Provider 12/27/22 06/21/24 Love Hernandez PA-C [address] [address] Assigned Surgical Provider 01/17/23 [place] [address] [place] [address] Assigned Gastroenterology Provider 07/23/23 Everardo Grant MD [address] [place] [address] Physician Infectious Diseases 09/23/23 Rey Billings MD [address] [place] [address] Assigned Infectious Disease Provider 10/23/23 Conrado Evans MD [address] [place] [address] [address] [place] [address] Nephrology 08/25/24 Delvin Lopez MD [address] [place] [address] 172085 Nephrology 08/25/24 Carissa Putnam RN [facility] [address] [place] [address] Specialty District Loss Prevention Manager Pharmacy 10/10/24 10/10/24 documented as of this encounter
--- OUTSIDE RECORDS SUMMARY | 2024-10-13 09:00 | XMS_ITS | Encounter Summary ---
Author Organization [place] Address [address] [place] [address] Care Team Providers Care Heeler Name Role Phone Robert Marley MD Primary Care Provider Chana Cheng MD Unavailable [phone] Anoop Garcia MD Unavailable Unavailable Barbara Carlson MD Unavailable Tayo Lacey MD Unavailable [phone] TuBasil shaikh MD Unavailable Charleen Lynne MD Unavailable [phone] Olimpia Williamson RN Unavailable [phone] Rin Dewitt RN Unavailable [phone] Rin Dewitt RN Unavailable [phone] Qian Rodriguez MD Unavailable [phone] Sherri Kingston Unavailable [phone] Olimpia Williamson RN Unavailable [phone] Olimpia Williamson RN Unavailable [phone] Christopher Quiroga MD Unavailable Claudia Yousif RN Unavailable Lance Simpson PA-C Unavailable [phone] Olimpia Williamson RN Unavailable [phone] Sherri Kingston Unavailable [phone] Delvin Bob MD Unavailable Charleen Lynne MD Unavailable [phone] ChapaShakira zelaya MD Unavailable Unav ailable AmbarZoltan soares ADRIANM Unavailable +[phone] Delvin Bob MD Unavailable Shante Mathisony Jaden LÓPEZ Unavailable + Sherri Kingston Unavailable Pedro Winchester MD Unavailable [phone] ChapaShakira zelaya MD Unavailable Unav ailable Jovanni Dempsey MD Unavailable [phone] Jovanni Dempsey MD Unavailable [phone] Len Hooks MD Unavailable Delvin Bob MD Unavailable Love Hernandez PA-C Unavailable [phone] Conrado Evans MD Unavailable Love Hernandez PA-C Unavailable [phone] Gordy Nickerson MD Unavailable Everardo Grant MD Unavailable Rey Billings MD Unavailable Conrado Evans MD Unavailable [phone] Delvin Lopez MD Unavailable [phone] Carissa Putnam RN Unavailable [phone] Encounter Details Date Type Department Care Team (Late st Contact Info) Description 12/08/2014 External Order Results [facility] Clinic [address] [address] Social History Tobacco Use Types Packs/Day Years Used Date Smoking Tobacco: Former Smokeless Tobacco: Never Alcohol Use Standard Drinks/Week Comments No 0 (1 standard drink = 0.6 oz pur e alcohol) Comments No Sex and Gender Information Value Date Recorded Sex Assigned at Not on file Legal Sex Female 3:26 AM CASTING CLEANER Gender Identity Not on file Sexual Orientation Not on file Occupation Industry Job Start Date Job End Date Not on file Not on file Not on file Not on file documented as of this encounter Progress Notes * Cherelle Carrasco - 12/11/2014 9:27 AM CDTOrder(s) created erroneously. Erroneous order ID: [id number] Order canceled by: CHERELLE CARRASCO Order cancel date/time: 12/11/2014 9:27 AM documented in this encounter Plan of Treatment Upcoming Encounters Date Type Department Care Team (Late st Contact Info) Description 10/25/2024 10:00 AM CDT Virtual Visit [facility] [address] [place] [address] Edith Brito 10/26/2024 8:30 AM CDT Lab [facility] Cancer Center [facility] [address] [place] [facility] 200 [place] [phone] Conrado Evans MD 717 [facility] [address] [facility] 1932 [place], [place] [address] documented as of this encounter Visit Diagnoses [...] Out COVID-19 04/19/2020 04/19/2020 04/19/2020 1:56 PM CASTING CLEANER Rule Out COVID-19 04/19/2020 04/20/2020 04/20/2020 6:34 AM CASTING CLEANER Rule Out COVID-19 12/15/2020 12/15/2020 12/15/2020 4:33 PM CDT Rule Out C-difficile 01/06/2021 01/08/2021 021 11:43 AM CASTING CLEANER Rule Out C-difficile 07/10/2021 07/10/2021 022 5:56 PM CDT Rule Out C-difficile 07/16/2023 07/16/2023 024 9:21 PM CDT Rule Out Parvovirus 07/16/2023 07/16/2023 07/19/19 24 12:29 PM CDT Parvovirus 07/16/2023 07/16/2023 10/03/2024 4:22 PM CDT [id number] Comment:This patient was exposed to a person with a known CP-CONSUMER AFFAIRS MANAGER and has the potential for having acquired this pathogen of concern. The [place] Department of Health ([facility]) and CDC recommend that we screen this patient to prevent the spread of these organisms within our healthcare facility. Infection Prevention has placed orders for collecting a rectal swab for CP-CONSUMER AFFAIRS MANAGER to evaluate if this patient is [...] Sharepoint page. 08/04/2023 08/04/2023 02/02/2024 11:39 PM CASTING CLEANER Rule Out Parvovirus 09/28/2023 09/28/2023 10/05/19 11:41 PM CDT documented as of this encounter Care Teams Heeler Relationship Specialty Start Date End Date Robert Marley MD [facility] [id number] [place] [address] PCP - General Family Practice 12/08/10 Chana Cheng MD [facility] [address] [place] [address] Nephrology 05/26/14 11/12/15 Anoop Garcia MD [facility] [address] [place] [address] Transplant 05/26/14 02/02/18 Barbara Carlson MD [address] [place] [address] Referring Physician Nephrology 08/30/14 11/12/15 Tayo Lacey MD [address] [place] [address] Cardiology 08/30/14 Basil Plummer MD 909 [place], [place] 8386[address] Neurology 05/09/15 04/23/16 Charleen Lynne MD 909 [place], [place] [address] Oncology 06/14/15 12/19/18 Olimpia Williamson, RN Nurse Coordinator Oncology 06/14/15 04/23/16 Rin Dewitt RN Nurse Coordinator Neurology 07/24/15 04/23/16 Rin Dewitt RN Nurse Coordinator Neurology 10/25/15 10/12/17 Qian Rodriguez MD 717 [facility] 353 [place], [place] [id number] Nephrology 11/13/15 06/16/16 Sherri Kingston PA [address] [facility] 394 [place], [place] 4[address]95 Physician Director Of Annual Giving Physician Director Of Annual Giving 03/20/16 Olimpia Williamson, RN Nurse Coordinator Oncology 06/26/16 06/26/16 Olimpia Williamson, RN Nurse Coordinator Oncology 06/26/16 06/16/18 Christopher Quiroga MD [facility] [address] [place], [place] [address] Oncology 07/02/16 Claudia Yousif, RN Nurse Coordinator Gastroenterology 02/09/17 09/16/22 Lance Simpson PA-C 909 [place] [address] Physician Director Of Annual Giving Physician Director Of Annual Giving 01/07/18 Olimpia Williamson, SONIA Specialty Night Guard Hematology & Oncology 05/06/18 12/19/18 Sherri Kingston PA [address] [place] [address] Urology [place], [place] [address] Physician Director Of Annual Giving Physician Director Of Annual Giving 12/21/18 Delvin Bob MD [address] [place] [address] 384515 Internal Medicine 11/11/19 Charleen Lynne MD [address] [place] [address] 655245 Assigned Cancer Care Provider 12/23/19 03/23/21 Shakira Chapa MD [place] [place] 06/29/2020 Assigned Surgical Provider 12/23/19 07/14/20 Zoltan Eric DPM [address] [facility] [address] [place] [address] Assigned Musculoskeletal Provider 12/23/19 07/26/21 Delvin Bob MD 420 [facility] 250 [place], [place] 2103[address] Assigned PCP 12/08/19 02/14/22 Maximo Mathis DO 909 [place] [address] Assigned Neuroscience Provider 02/12/20 08/09/21 Sherri Kingston PA 909 [facility] [place] [address] Assigned Surgical Provider 07/15/20 10/06/20 Pedro Winchester MD 6405 [place], [place] 123645 Assigned Heart and Vascular Provider 08/05/20 01/31/22 Shakira Chapa MD [place] 06/29/2020 Assigned Surgical Provider 10/07/20 10/13/20 Jovanni Dempsey MD 600 [place], [place] [address] Assigned Nephrology Provider 03/24/21 03/14/22 Jovanni Dempsey MD 600 [place], [place] 991552 Assigned Nephrology Provider 03/15/22 03/21/22 Len Hooks MD 717 [facility] 353 [place] [address] Assigned Nephrology Provider 03/22/22 12/26/22 Delvin Bob MD 420 [facility] 250 [place] [address] Assigned PCP 04/26/22 12/12/22 FerLove freeman PA-C [address] [facility] 500 [place] [address] Physician Director Of Annual Giving Urology 12/01/22 Conrado Evans MD [address] 2 [place] [address] Assigned Nephrology Provider 12/27/22 06/21/24 Love Hernandez PA-C [address] [place] 500 [place], [place] 5[address] Assigned Surgical Provider 01/17/23 [place] [address] [place], [place] [address] Assigned Gastroenterology Provider 07/23/23 Everardo Grant MD [address] [place] [address] 9860[address] Physician Infectious Diseases 09/23/23 Rey Billings MD [address] [place] [address] 517175 Assigned Infectious Disease Provider 10/23/23 Conrado Evans MD [address] [place] [address] Nephrology 08/25/24 Delvin Lopez MD [address] [place] [address] Nephrology 08/25/24 Carissa Putnam RN [facility] [address] [place] [address] Specialty [facility] Pharm[facility] 10/10/24 10/10/24 documented as of this encounter
--- OUTSIDE RECORDS SUMMARY | 2024-10-13 09:00 | XMS_ITS | Encounter Summary ---
Author Organization [place] Address [address] [place] [address] Care Team Providers Care Check Out Clerk Name Role Phone Robert Marley MD Primary Care Provider Chana Cheng MD Unavailable [phone] Anoop Garcia MD Unavailable Unavailable Barbara Carlson MD Unavailable Tayo Lacey MD Unavailable [phone] TuBasil shaikh MD Unavailable Charleen Lynne MD Unavailable [phone] Olimpia Williamson RN Unavailable [phone] Rin Dewitt RN Unavailable [phone] Rin Dewitt RN Unavailable [phone] Qian Rodriguez MD Unavailable [phone] Sherri Kingston Unavailable [phone] Olimpia Williamson RN Unavailable [phone] Olimpia Williamson RN Unavailable [phone] Christopher Quiroga MD Unavailable Claudia Yousif RN Unavailable Lance Simpson PA-C Unavailable [phone] Olimpia Williamson RN Unavailable [phone] Sherri Kingston Unavailable Delvin Bob MD Unavailable Charleen Lynne MD Unavailable [phone] ChapaShakira zelaya MD Unavailable Unav ailable AmbarZoltan soares ADRIANM Unavailable [phone] Delvin Bob MD Unavailable Shante Mathisony Jaden LÓPEZ Unavailable + Sherri Kingston Unavailable Pedro Winchester MD Unavailable ChapaShakira zelaya MD Unavailable Unav ailable Jovanni Dempsey MD Unavailable [phone] Jovanni Dempsey MD Unavailable [phone] Len Hooks MD Unavailable Delvin Bob MD Unavailable Love Hernandez PA-C Unavailable Conardo Evans MD Unavailable Love Hernandez PA-C Unavailable [phone] Gordy Nickerson MD Unavailable Everardo Grant MD Unavailable Rey Billings MD Unavailable [phone] Conrado Evans MD Unavailable Delvin Lopez MD Unavailable [phone] Carissa Putnam RN Unavailable [phone] Encounter Details Date Type Department Care Team (Late st Contact Info) Description 02/06/2015 External Order Results [facility], Clinic [address] [address] Social History Tobacco Use Types Packs/Day Years Used Date Smoking Tobacco: Former Smokeless Tobacco: Never Alcohol Use Standard Drinks/Week Comments No 0 (1 standard drink = 0.6 oz pur e alcohol) Comments No Sex and Gender Information Value Date Recorded Sex Assigned at Not on file Legal Sex Female 3:26 AM RING STAMPER Gender Identity Not on file Sexual Orientation Not on file Occupation Industry Job Start Date Job End Date Not on file Not on file Not on file Not on file documented as of this encounter Plan of Treatment Upcoming Encounters Date Type Department Care Team (Late st Contact Info) Description 10/25/2024 10:00 AM CDT Virtual Visit [facility] [address] [place] [address] Edith Brito 10/26/2024 8:30 AM CDT Lab [facility] Cancer Center [facility] Medical Ctr [facility] [address] [facility] 200 [place] [address] Conrado Evans MD 717 [facility] 353 [facility] 1932 [place], [place] 9[address] documented as of this encounter Procedures Procedure Name Priority Date/Time Associated Diagnosis Comments EXTERNAL LAB RESULTS Routine 02/01/2015 9:30 AM RING STAMPER documented in this encounter Results * (ABNORMAL) TXP External Lab Result (02/01/2015 9:30 AM RING STAMPER) Calcium (External) 9.1 8.4 - 10.6 MG/DL LABDE SCAN Urea Nitrogen (External) 24 15 - 24 MG/DL LABDE SCAN Creatinine (External) 1.0 0.5 - 1.5 MG/DL LABDE SCAN Glucose (External) 101 60 - 115 mg/dL LABDE SCAN Sodium (External) 146 135 - 149 MMOL/L LABDE SCAN Potassium (External) 2.7(L) 3.6 - 5.1 MMOL/L LABDE SCAN Chloride (External) 103 96 - 114 MMOL/L LABDE SCAN CO2 (External) 33(H) 20 - 32 MMOL/L LABDE SCAN Amylase (External) 76 18 - 89 u/L LABDE SCAN Lipase Level (External) 73 23 - 300 u/L LABDE SCAN WBC Count (External) 2.93(L) 5.00 - 10.00 K/UL LABDE SCAN RBC Count (External) 4.97 LABDE SCAN Hemoglobin (External) 12.4 GM/DL LABDE SCAN Hematocrit (External) 40.4 34.9 - 44.5 % LABDE SCAN MCV (External) 81(L) 82 - 98 FL LABDE SCAN MCH (External) 25(L) 27 - 34 PG LABDE SCAN MCHC (External) 31(L) 32 - 36 GM/DL LABDE SCAN Platelet Count (External) 140(L) 150 - 450 K/UL LABDE SCAN % Neutrophils (External) 64.6 50.0 - 70.0 % LABDE SCAN % Lymphocytes (External) 18.8(L) 25.0 - 45.0 % LABDE SCAN % Monocytes (External) 9.9 0.00 - 11.0 % LABDE SCAN % Eosinophils (External) 5.5 0.0 - 7.0 % LABDE SCAN % Basophils (External) 1.0 0.0 - 3.0 % LABDE SCAN Absolute Neutrophils (External) 1.90 1.70 - 7.00 K/UL LABDE SCAN Absolute Lymphocytes (External) 0.55(L) 0.90 - 2.90 LABDE SCAN Absolute Monocytes (External) 0.29(L) 0.30 - 0.90 K/UL LABDE SCAN Absolute Eosinophils (External) 0.16 LABDE SCAN Absolute Basophils (External) 0.03 LABDE SCAN % Immature Granulocytes (External) 0.0 % LABDE SCAN Absolute Immature Granulocytes (External) 0.00 K/UL LABDE SCAN 02/01/2015 9:30 AM RING STAMPER Narrative BOBBY PFT - 02/06/2015 5:26 PM RING STAMPER Verified by Rylee Guzman on 02/06/2015. 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 Meena Torres [facility] Infection Prevention 07/11/2019 at 3:56 [...] Out COVID-19 04/19/2020 04/19/2020 04/19/2020 1:56 PM RING STAMPER Rule Out COVID-19 04/19/2020 04/20/2020 04/20/2020 6:34 AM RING STAMPER Rule Out COVID-19 12/15/2020 12/15/2020 12/15/2020 4:33 PM CDT Rule Out C-difficile 01/06/2021 01/08/2021 021 11:43 AM RING STAMPER Rule Out C-difficile 07/10/2021 07/10/2021 022 5:56 PM CDT Rule Out C-difficile 07/16/2023 07/16/2023 024 9:21 PM CDT Rule Out Parvovirus 07/16/2023 07/16/2023 07/19/19 24 12:29 PM CDT Parvovirus 07/16/2023 07/16/2023 10/03/2024 4:22 PM CDT [id number] Comment:This patient was exposed to a person with a known CP-ELECTRIFIER OPERATOR and has the potential for having acquired this pathogen of concern. The [place] [facility] ([facility]) and CDC recommend that we screen this patient to prevent the spread of these organisms within our healthcare facility. Infection Prevention has placed orders for collecting a rectal swab for CP-ELECTRIFIER OPERATOR to evaluate if this patient is [...] Sharepoint page. 08/04/2023 08/04/2023 02/02/2024 11:39 PM RING STAMPER Rule Out Parvovirus 09/28/2023 09/28/2023 10/05/19 24 11:41 PM CDT documented as of this encounter Care Teams Check Out Clerk Relationship Specialty Start Date End Date Robert Marley MD [address] [address] PCP - General Family Practice 12/08/10 Chana Cheng MD [facility] [address] [place] [address] Nephrology 05/26/14 11/12/15 Anoop Garcia MD [facility] [address] [place] [address] Transplant 05/26/14 02/02/18 Barbara Carlson MD [address] [place] [address] Referring Physician Nephrology 08/30/14 11/12/15 Tayo Lacey MD [address] [place] [address] Cardiology 08/30/14 Basil Plummer MD [address] [place] [address]245 Neurology 05/09/15 04/23/16 Charleen Lynne MD [address] [place] [address] 627735 MD Oncology 06/14/15 12/19/18 Olimpia Williamson RN Nurse Coordinator Oncology 06/14/15 04/23/16 Rin Dewitt RN Nurse Coordinator Neurology 07/24/15 04/23/16 Rin Dewitt RN Nurse Coordinator Neurology 10/25/15 10/12/17 Qian Rodriguez MD 717 [facility] 353 [place] [address] Nephrology 11/13/15 06/16/16 Sherri Kingston PA 420 [facility] 394 [place], [place] [address] Physician Spear Fisher Physician Spear Fisher 03/20/16 Olimpia Williamson, SONIA Nurse Coordinator Oncology 06/26/16 06/26/16 Olimpia Williamson, RN Nurse Coordinator Oncology 06/26/16 06/16/18 Christopher Quiroga MD [facility] [address] [place], [place] [address] MD Oncology 07/02/16 Claudia Yousif RN Nurse Coordinator Gastroenterology 02/09/17 09/16/22 Lance Simpson PA-C [address] [place] [address] Physician Spear Fisher Physician Spear [place] 01/07/18 Olimpia Williamson, RN Specialty [place] Hematology & Oncology 05/06/18 12/19/18 Sherri Kingston PA [address] [place] [address] Urology [place] [address] Physician Spear Fisher Physician Spear Fisher 12/21/18 Delvin Bob MD [address] [place] [address] 250 [place], [place] 114335 Internal Medicine 11/11/19 Charleen Lynne MD [address] [place] [address] 364535 Assigned Cancer Care Provider 12/23/19 03/23/21 Shakira Chapa MD [place] [place] 06/29/2020 Assigned Surgical Provider 12/23/19 07/14/20 Zoltan Eric DPM [address] [facility] [address] [place], [place] [address] Assigned Musculoskeletal Provider 12/23/19 07/26/21 Delvin Bob MD 420 [facility] 250 [place] [address] Assigned PCP 12/08/19 02/14/22 Maximo Mathis DO [address] [place] [address] Assigned Neuroscience Provider 02/12/20 08/09/21 Sherri Kingston PA 909 [facility] [place] [address] Assigned Surgical Provider 07/15/20 10/06/20 Pedro Winchester MD 6405 [place] [address] Assigned Heart and Vascular Provider 08/05/20 01/31/22 Shakira Chapa MD [place] 06/29/2020 Assigned Surgical Provider 10/07/20 10/13/20 Jovanni Dempsey MD 600 [place], [place] [address] Assigned Nephrology Provider 03/24/21 03/14/22 Jovanni Dempsey MD 600 [place], [place] 8429[address] Assigned Nephrology Provider 03/15/22 03/21/22 Len Hooks MD 717 [facility] 353 [place] [address] Assigned Nephrology Provider 03/22/22 12/26/22 Delvin Bob MD [address] [place] [address] 250 [place], [place] [address]75 Assigned PCP 04/26/22 12/12/22 Lvoe Hernandez PA-C [address] [facility] 500 [place] [address] Physician Spear Fisher Urology 12/01/22 Conrado Evans MD [address] [place] [address] Assigned Nephrology Provider 12/27/22 06/21/24 Love Hernandez PA-C 6[address] [facility] 500 [place], [place] 8[address] Assigned Surgical Provider 01/17/23 [place] [address] [place] [address] Assigned Gastroenterology Provider 07/23/23 Everardo Grant MD [address] [place] [address] 236635 Physician Infectious Diseases 09/23/23 Rey Billings MD [address] [place] [address] 942715 Assigned Infectious Disease Provider 10/23/23 Conrado Evans MD [address] [place] [address] Nephrology 08/25/24 Delvin Lopez MD [address] [place] [address] Nephrology 08/25/24 Carissa Putnam RN [facility] 711 [place] [address] [facility]ty [facility] 10/10/24 10/10/24 documented as of this encounter
--- OUTSIDE RECORDS SUMMARY | 2024-10-13 09:00 | XMS_ITS | Encounter Summary ---
Author Organization [place] Address [address] [place] [address] Care Team Providers Care Spool Maker Name Role Phone Robert Marley MD Primary Care Provider Chana Cheng MD Unavailable [phone] Anoop Garcia MD Unavailable Unavailable Barbara Carlson MD Unavailable Tayo Lacey MD Unavailable [phone] TuBasil shaikh MD Unavailable Charleen Lynne MD Unavailable [phone] Olimpia Williamson RN Unavailable [phone] Rin Dewitt RN Unavailable [phone] Rin Dewitt RN Unavailable [phone] Qian Rodriguez MD Unavailable [phone] Sherri Kingston Unavailable [phone] Olimpia Williamson RN Unavailable [phone] Olimpia Williamson RN Unavailable [phone] Christopher Quiroga MD Unavailable Claudia Yousif RN Unavailable Lance Simpson PA-C Unavailable [phone] Olimpia Williamson RN Unavailable [phone] Sherri Kingston Unavailable Delvin Bob MD Unavailable Charleen Lynne MD Unavailable [phone] ChapaShakira zelaya MD Unavailable Unav ailable AmbarZoltan soares ADRIANM Unavailable [phone] Delvin Bob MD Unavailable Shante Mathisony Jaden LÓPEZ Unavailable + Sherri Kingston Unavailable Pedro Winchester MD Unavailable ChapaShakira zelaya MD Unavailable Unav ailable Jovanni Dempsey MD Unavailable Jovanni Dempsey MD Unavailable [phone] Len Hooks MD Unavailable Delvin Bob MD Unavailable Love Hernandez PA-C Unavailable Conrado Evans MD Unavailable [phone] Love Hernandez PA-C Unavailable [phone] Gordy Nickerson MD Unavailable Everardo Grant MD Unavailable Rey Billings MD Unavailable Conrado Evans MD Unavailable Delvin Lopez MD Unavailable [phone] Carissa Putnam RN Unavailable [phone] Encounter Details Date Type Department Care Team (Late st Contact Info) Description 12/08/2014 External Order Results [facility] 2nd Floor, [facility] [address] [address] Social History Tobacco Use Types Packs/Day Years Used Date Smoking Tobacco: Former Smokeless Tobacco: Never Alcohol Use Standard Drinks/Week Comments No 0 (1 standard drink = 0.6 oz pur e alcohol) Comments No Sex and Gender Information Value Date Recorded Sex Assigned at Not on file Legal Sex Female 3:26 AM PORTAL ADMINISTRATOR Gender Identity Not on file Sexual Orientation Not on file Occupation Industry Job Start Date Job End Date Not on file Not on file Not on file Not on file documented as of this encounter Plan of Treatment Upcoming Encounters Date Type Department Care Team (Late st Contact Info) Description 10/25/2024 10:00 AM CDT Virtual Visit [facility] [address] [address] Edith Brito 10/26/2024 8:30 AM CDT Lab [facility] [address] [facility] [address] [place] [address] Conrado Evans MD [address] [facility] 353 [facility] [address] [place], [place] [id number] documented as of this encounter Procedures Procedure Name Priority Date/Time Associated Diagnosis Comments EXTERNAL LAB RESULTS Routine 12/07/2014 8:30 AM CDT documented in this encounter Results * (ABNORMAL) TXP External Lab Result (12/07/2014 8:30 AM CDT) Calcium (External) 8.8 LABDE SCAN Urea Nitrogen (External) 18 LABDE SCAN Creatinine (External) 0.8 LABDE SCAN Glucose (External) 96 LABDE SCAN Sodium (External) 142 135 - 149 MMOL/L LABDE SCAN Potassium (External) 2.9(LL) 3.6 - 5.1 LABDE SCAN Chloride (External) 103 LABDE SCAN CO2 (External) 34(H) 20 - 32 MMOL/L LABDE SCAN Amylase (External) 57 LABDE SCAN Lipase Level (External) 75 LABDE SCAN % Lymphocytes (External) 15.5 LABDE SCAN % Monocytes (External) 11.3 % LABDE SCAN % Eosinophils (External) 3.5 % LABDE SCAN % Basophils (External) 0.5 % LABDE SCAN Absolute Neutrophils (External) 2.76 LABDE SCAN Absolute Lymphocytes (External) 0.62(L) LABDE SCAN Absolute Monocytes (External) 0.45 LABDE SCAN Absolute Eosinophils (External) 0.14 LABDE SCAN Absolute Basophils (External) 0.02 LABDE SCAN % Immature Granulocytes (External) 0.0 LABDE SCAN Absolute Immature Granulocytes (External) 0.00 LABDE SCAN INR (External) 3.3 LABDE SCAN 12/07/2014 8:30 AM CDT Narrative BOBBY PFT - 12/08/2014 7:48 AM CDT Verified by Rylee Guzman on 12/08/2014. us Patient Reported LABORATORY Edited Result - [...] the IP on-call for review. Meena Torres, [facility] Infection Prevention 07/11/2019 at 3:56 PM [...] Out COVID-19 04/19/2020 04/19/2020 04/19/2020 1:56 PM PORTAL ADMINISTRATOR Rule Out COVID-19 04/19/2020 04/20/2020 04/20/2020 6:34 AM PORTAL ADMINISTRATOR Rule Out COVID-19 12/15/2020 12/15/2020 12/15/2020 4:33 PM CDT Rule Out C-difficile 01/06/2021 01/08/2021 021 11:43 AM PORTAL ADMINISTRATOR Rule Out C-difficile 07/10/2021 07/10/2021 022 5:56 PM CDT Rule Out C-difficile 07/16/2023 07/16/2023 024 9:21 PM CDT Rule Out Parvovirus 07/16/2023 07/16/2023 07/19/19 24 12:29 PM CDT Parvovirus 07/16/2023 07/16/2023 10/03/2024 4:22 PM CDT [id number] Comment:This patient was exposed to a person with a known CP-WINCHER and has the potential for having acquired this pathogen of concern. The [place] Department of Health ([facility]) and CDC recommend that we screen this patient to prevent the spread of these organisms within our healthcare facility. Infection Prevention has placed orders for collecting a rectal swab for CP-WINCHER to evaluate if this patient is now a carrier. This patient was identified to have a low risk exposure in which case Contact Precautions are not necessary unless the patient tests positive. Screening is voluntary. Please notify Infection Prevention if the patient declines testing. Additional information and resources can be found on the Infection Prevention [employer] Sharepoint page. 08/04/2023 08/04/2023 02/02/2024 11:39 PM PORTAL ADMINISTRATOR Rule Out Parvovirus 09/28/2023 09/28/2023 10/05/19 11:41 PM CDT documented as of this encounter Care Teams Spool Maker Relationship Specialty Start Date End Date Robert Marley MD [facility] [address] [place] [address] PCP - General Family Practice 12/08/10 Chana Cheng MD [facility] [address] [place] [address] Nephrology 05/26/14 11/12/15 Anoop Garcia MD [facility] [address] [place] [address] Transplant 05/26/14 02/02/18 Barbara Carlson MD [address] [place] [phone] Referring Physician Nephrology 08/30/14 11/12/15 Tayo Lacey MD [address] [place] [phone] Cardiology 08/30/14 Basil Plummer MD [address] [place] [address] Neurology 05/09/15 04/23/16 Charleen Lynne MD [address] [place] [phone] Oncology 06/14/15 12/19/18 Olimpia Williamson, SONIA Nurse Coordinator Oncology 06/14/15 04/23/16 Rin Dewitt RN Nurse Coordinator Neurology 07/24/15 04/23/16 Rin Dewitt RN Nurse Coordinator Neurology 10/25/15 10/12/17 Qian Rodriguez MD [address] [place] [address] [address] [place], [place] [id number] Nephrology 11/13/15 06/16/16 Sherri Kingston PA [address] [place] [address] [phone] Physician Vp Business Development Physician Vp Business Development 03/20/16 Olimpia Williamson, RN Nurse Coordinator Oncology 06/26/16 06/26/16 Olimpia Williamson, RN Nurse Coordinator Oncology 06/26/16 06/16/18 Christopher Quiroga MD [facility]AT[facility] [address] [place] [address] [id number] MD Oncology 07/02/16 Claudia Yousif RN Nurse Coordinator Gastroenterology 02/09/17 09/16/22 Lance Simpson PA-C [address] [place] [address] [phone] Physician Vp Business Development Physician Vp Business Development 01/07/18 Olimpia Williamson, RN Specialty Cooperative Manager Hematology & Oncology 05/06/18 12/19/18 Sherri Kingston PA [address] [place] [address] Urology [place], [place] [phone] Physician Vp Business Development Physician Vp Business Development 12/21/18 Delvin Bob MD [address] [place] [address] [address] [place] [address] Internal Medicine 11/11/19 Charleen Lynne MD [address] [place] [address] Assigned Cancer Care Provider 12/23/19 03/23/21 Shakira Chapa MD INACTIVE IN ID OF 06/29/2020 Assigned Surgical Provider 12/23/19 07/14/20 Zoltan Eric DPM [address] [facility] [address] [place] [address] Assigned Musculoskeletal Provider 12/23/19 07/26/21 Delvin Bob MD [address] [place] [address] Assigned PCP 12/08/19 02/14/22 Maximo Mathis DO [address] [place] [address] Assigned Neuroscience Provider 02/12/20 08/09/21 Sherri Kingston PA [address] [place] [address] Urology [place], [place] [phone] Assigned Surgical Provider 07/15/20 10/06/20 Pedro Winchester MD [address] [place] [id number] Assigned Heart and Vascular Provider 08/05/20 01/31/22 Shakira Chapa MD INACTIVE IN ID OF 06/29/2020 Assigned Surgical Provider 10/07/20 10/13/20 Jovanni Dempsey MD [address] [place] [address] Assigned Nephrology Provider 03/24/21 03/14/22 Jovanni Dempsey MD [address] [place], [place] 27[address] Assigned Nephrology Provider 03/15/22 03/21/22 Len Hooks MD [address] [facility] [address] [place] [address] [place], [place] [address] Assigned Nephrology Provider 03/22/22 12/26/22 Delvin Bob MD 420 [facility] [address] [place], [place] [address] Assigned PCP 04/26/22 12/12/22 Love Hernandez PA-C [address] [place] [address] [place], [place] [address] Physician Vp Business Development Urology 12/01/22 Conrado Evans MD [address] [place] 353 [facility] [address] [place], [place] [phone] Assigned Nephrology Provider 12/27/22 06/21/24 Love Hernandez PA-C [address] [place] [address] [place] [address] Assigned Surgical Provider 01/17/23 [place] [address] [place] [address] Assigned Gastroenterology Provider 07/23/23 Everardo Grant MD [address] [place] [address] Physician Infectious Diseases 09/23/23 Rey Billings MD [address] [place] [address] Assigned Infectious Disease Provider 10/23/23 Conrado Evans MD [address] [place] [address] 353 [facility] [address] [place] [address] Nephrology 08/25/24 Delvin Lopez MD [address] [place] [address] [id number] Nephrology 08/25/24 Carissa Putnam RN [facility] [address] [place] [address] Specialty Cooperative Manager Pharmacy 10/10/24 10/10/24 documented as of this encounter
--- OUTSIDE RECORDS SUMMARY | 2024-10-13 09:00 | XMS_ITS | Clinical Summary ---
Author Organization [facility] Address [address], [place] [address] Care Team Providers Care Squeegee Operator Name Role Phone Unavailable Primary Care Provider Unavailabl e Source Comments You are receiving this document as you are listed as the primary care provider,follow-up provider, or the patient has been referred to you for consultation.This is in compliance with the Medicare and[facility] EHR Incentive Program,which states Providers who transition their patient to another setting of careor provider of care or refers their patient to another provider of care shouldprovide summary care record for each transition of care or referral. [facility] Allergies No known active allergies Medications sulfamethoxazol e-trimethoprim (BACTRIM) 400-80 MG tablet Take 1 Tablet by mouth daily. 03/09/2014 Active gabapentin (AKA NEURONTIN) 600 MG tablet Take 1 Tablet (600 mg) by mouth two times a day. 03/09/2014 Active fludrocortisone (AKA FLORINEF) 0.1 MG tablet Take 2 Tablets (0.2 mg) by mouth daily. 03/09/2014 Active warfarin (AKA COUMADIN) 5 MG tablet Take 1 Tablet (5 mg) by mouth daily. Adjust dose based on INR result as directed. 11 03/09/2014 Active calcium carbonate-vitam in D (AKA OSCAL D) 500-200 MG-UNIT tablet Take 1 Tablet by mouth two times a day. 03/09/2014 Active midodrine (AKA PROAMATINE) 5 MG tablet Take 2 tablets by mouth three times daily as needed for hypotension. 07/13/2014 Active pantoprazole (AKA PROTONIX) 40 MG tablet Take 1 Tablet (40 mg) by mouth two times a day. 07/13/2014 Active sodium chloride 1 G tablet Take 1 Tablet (1 g) by mouth daily. 07/13/2014 Active potassium chloride (AKA K-JOVITA) 20 MEQ packet Take 40 mEq by mouth 4 times a day. 07/13/2014 Active everolimus (AFINITOR) 0.75 MG tablet Take 2 Tablets (1.5 mg) by mouth two times a day. 09/05/2014 Active aspirin 325 MG tablet Take 1 Tablet (325 mg) by mouth daily. 100 Tab 3 09/05/2014 Active tacrolimus (AKA PROGRAF) 1 MG capsule Total dose 4.5 every morning and 4 mg every evening. 09/05/2014 Active tacrolimus (AKA PROGRAF) 0.5 MG capsule Total dose 4.5 mg every morning and 4 mg every evening. 09/05/2014 Active Caffeine 200 MG Take 200 mg by mouth daily. 09/05/2014 Active Magnesium Chloride-Calciu m 64-106 MG TBEC Take 2 Tabs by mouth daily. 09/05/2014 Active venlafaxine (AKA EFFEXOR XR) 75 MG 24 hour release capsule Take 1 Capsule (75 mg) by mouth daily. 09/05/2014 Active Active Problems Problem Noted Date Diagnosed Date Orthostatic hypotension 09/05/2014 Pancreas transplanted 03/09/2014 Kidney transplanted 03/09/2014 Insomnia 03/09/2014 HTN (hypertension) 03/09/2014 CAD (coronary artery disease) 03/09/2014 Neuropathy 03/09/2014 Type 1 diabetes mellitus 03/09/2014 Social History Tobacco Use Types Packs/Day Years Used Date Smoking Tobacco: Never Alcohol Use Standard Drinks/Week Comments No 0 (1 standard drink = 0.6 oz pur e alcohol) Comments Unknown Sex and Gender Information Value Date Recorded Sex Assigned at Not on file Legal Sex Female 5:20 AM CDT Gender Identity Not on file Sexual Orientation Not on file Last Filed Vital Signs Vital Sign Reading Time Taken Comments Blood Pressure - - Pulse - - Temperature - - Respiratory Rate - - Oxygen Saturation - - Inhaled Oxygen Concentration - - Weight 54.9 kg (121 lb) 09/29/2022 8:01 AM CDT Height 167.6 cm (5' 6) 09/29/2022 8:01 AM CDT Body Mass Index 19.53 09/29/2022 8:01 AM CDT Plan of Treatment Health Maintenance Due Date Last Done Comments Cervical Cancer Screening Due 1965 Colon Cancer Screening Plan Due 1965 Diabetes: Albumin/Creatinine Ratio, Urine 1965 Diabetes: Creatinine 1965 Diabetes: Eye Exam 1965 Diabetes: Foot Exam 1965 Diabetes: Lipid Panel 1965 Hep C Screening (Preventive Services) 1965 Medicare Annual Wellness Visit 1965 Mammogram 1965 HIV Screening (Preventive Services) 1981 HepB Vaccine (1) 1984 Zoster/Shingles Vaccine (1 of 2) 1984 Pneumococcal Vaccine 50+ Yrs (4 of 4 - PCV) 10/02/2020 10/03/2015, 07/07/2012, 10/02/2011 Diabetes: HGBA1C 08/19/2022 02/18/2022 COVID-19 Vaccine ( - season) 2023 02/12/2021, 06/09/2020, 05/19/2020 Influenza Vaccine (#1) 2024 2, 02/12/2021, 03/12/2020, Additional history exists DTaP/Tdap/Td Vaccine (4 - Tdap) 04/08/2029 04/08/2019, 05/22/2014, 09/23/2002, Additional history exists Hib Vaccine Aged Out 10/03/2015 No longer eligi ble based on patient's age to complete this topic HepA Vaccine Aged Out No longer eligi ble based on patient's age to complete this topic IPV (Polio) Vaccine Aged Out No longe r eligible based on patient's age to complete this topic MCV4 Vaccine Aged Out No longer eligi ble based on patient's age to complete this topic Meningococcal B Vaccine Aged Out No l onger eligible based on patient's age to complete this topic Insurance [employer] MEDICARE MEDICARE [facility] NETWORK MEDICARE
--- OUTSIDE RECORDS SUMMARY | 2024-10-13 09:00 | XMS_ITS | Encounter Summary ---
Author Organization [facility] Address [address] [place] [address] Care Team Providers Care Truck Operator Name Role Phone Robert Marley MD Primary Care Provider Chana Cheng MD Unavailable [phone] Anoop Garcia MD Unavailable Unavailable Barbara Carlson MD Unavailable Tayo Lacey MD Unavailable [phone] TuBasil shaikh MD Unavailable Charleen Lynne MD Unavailable [phone] Olimpia Williamson RN Unavailable [phone] Rin Dewitt RN Unavailable [phone] Rin Dewitt RN Unavailable [phone] Qian Rodriguez MD Unavailable [phone] Sherri Kingston Unavailable [phone] Olimpia Williamson RN Unavailable [phone] Olimpia Williamson RN Unavailable [phone] Christopher Quiroga MD Unavailable Claudia Yousif RN Unavailable Lance Simpson PA-C Unavailable [phone] Olimpia Williamson RN Unavailable [phone] Sherri Kingston Unavailable [phone] Delvin Bob MD Unavailable Charleen Lynne MD Unavailable [phone] ChapaShakira zelaya MD Unavailable Unav ailable Zoltan Eric ADRIANKerry Unavailable [phone] Delvin Bob MD Unavailable Shante Mathisony Jaden LÓPEZ Unavailable + Sherri Kingston Unavailable [phone] Pedro Winchester MD Unavailable [phone] ChapaShakira zelaya MD Unavailable Unav ailable Jovanni eDmpsey MD Unavailable [phone] Jovanni Dempsey MD Unavailable +[phone] Len Hooks MD Unavailable Delvin Bob MD Unavailable Love Hernandez PA-C Unavailable Conrado Evans MD Unavailable [phone] Love Hernandez PA-C Unavailable Gordy Nickerson MD Unavailable Everardo Grant MD Unavailable Rey Billings MD Unavailable [phone] Conrado Evans MD Unavailable Devlin Lopez MD Unavailable [phone] Carissa Putnam RN Unavailable [phone] Encounter Details Date Type Department Care Team (Late st Contact Info) Description 07/10/2015 External Order Results [facility] [address] [place] [address] Social History Tobacco Use Types Packs/Day Years Used Date Smoking Tobacco: Former Smokeless Tobacco: Never Alcohol Use Standard Drinks/Week Comments No 0 (1 standard drink = 0.6 oz pur e alcohol) Comments No Sex and Gender Information Value Date Recorded Sex Assigned at Not on file Legal Sex Female 3:26 AM SCAFFOLDING HELPER Gender Identity Not on file Sexual [...] [facility] [address] [place] [address] Edith Brito 10/26/2024 8:30 AM CDT Lab [facility] [address] [place] [address] [place] [phone] Conrado Evans MD 717 [facility] 353 [facility] [address] [place] [address] documented as of this encounter Visit Diagnoses [...] IP on-call for review. Meena Torres [facility] Infection Prevention 07/11/2019 at 3:56 [...] Out COVID-19 04/19/2020 04/19/2020 04/19/2020 1:56 PM SCAFFOLDING HELPER Rule Out COVID-19 04/19/2020 04/20/2020 04/20/2020 6:34 AM SCAFFOLDING HELPER Rule Out COVID-19 12/15/2020 12/15/2020 12/15/2020 4:33 PM CDT Rule Out C-difficile 01/06/2021 01/08/2021 021 11:43 AM SCAFFOLDING HELPER Rule Out C-difficile 07/10/2021 07/10/2021 022 5:56 PM CDT Rule Out C-difficile 07/16/2023 07/16/2023 024 9:21 PM CDT Rule Out Parvovirus 07/16/2023 07/16/2023 07/19/19 24 12:29 PM CDT Parvovirus 07/16/2023 07/16/2023 10/03/2024 4:22 PM CDT [id number] Comment:This patient was exposed to a person with a known CP-FUR MACHINE OPERATOR and has the potential for having acquired this pathogen of concern. The [place] Department of Health ([facility]) and CDC recommend that we screen this patient to prevent the spread of these organisms within our healthcare facility. Infection Prevention has placed orders for collecting a rectal swab for CP-FUR MACHINE OPERATOR to evaluate if this patient [...] Sharepoint page. 08/04/2023 08/04/2023 02/02/2024 11:39 PM SCAFFOLDING HELPER Rule Out Parvovirus 09/28/2023 09/28/2023 10/05/19 11:41 PM CDT documented as of this encounter Care Teams Truck Operator Relationship Specialty Start Date End Date Robert Marley MD [facility] [address] [place] [address] PCP - General Family Practice 12/08/10 Chana Cheng MD [facility] [address] [place] [address] Nephrology 05/26/14 11/12/15 Anoop Garcia MD [facility] [address] [place] [address] Transplant 05/26/14 02/02/18 Barbara Carlson MD [address] [place] [address] Referring Physician Nephrology 08/30/14 11/12/15 Tayo Lacey MD [address] [place] [address] Cardiology 08/30/14 Basil Plummer MD [address] [place] [address] 928935 Neurology 05/09/15 04/23/16 Charleen Lynne MD [address]09 [place] [address] MD Oncology 06/14/15 12/19/18 Olimpia Williamson, RN Nurse Coordinator Oncology 06/14/15 04/23/16 Rin Dewitt RN Nurse Coordinator Neurology 07/24/15 04/23/16 Rin Dewitt RN Nurse Coordinator Neurology 10/25/15 10/12/17 Qian Rodriguez MD 717 [facility] 353 [place], [place] [address] Nephrology 11/13/15 06/16/16 Sherri Kingston PA 420 [facility] 394 [place], [place] [address] Physician Straight Pin Making Machine Operator Physician Straight Pin Making Machine Operator 03/20/16 Olimpia Williamson, RN Nurse Coordinator Oncology 06/26/16 06/26/16 Olimpia Williamson, RN Nurse Coordinator Oncology 06/26/16 06/16/18 Christopher Quiroga MD [facility] [address] [place], [place] [address] MD Oncology 07/02/16 Claudia Yousif, RN Nurse Coordinator Gastroenterology 02/09/17 09/16/22 Lance Simpson PA-C [address] [place] [address] [id number] Physician Straight Pin Making Machine Operator Physician Straight Pin Making Machine Operator 01/07/18 Olimpia Williamson, RN Specialty Sponge Maker Hematology & Oncology 05/06/18 12/19/18 Sherri Kingston PA [address] [place] [address] Physician Straight Pin Making Machine Operator Physician Straight Pin Making Machine Operator 12/21/18 Delvin Bob MD [address] [place] [address] 250 [place] [address] Internal Medicine 11/11/19 Charleen Lynne MD [address] [place] [address] 230505 Assigned Cancer Care Provider 12/23/19 03/23/21 Shakira Chapa MD [place] [place] 06/29/2020 Assigned Surgical Provider 12/23/19 07/14/20 Zoltan Eric DPM [address] [facility] [address] [place], [place] [address] Assigned Musculoskeletal Provider 12/23/19 07/26/21 Delvin Bob MD [address] [place] [address] 250 [place], [place] 735935 Assigned PCP 12/08/19 02/14/22 Maximo Mathis DO [address] [place] [address] [id number] Assigned Neuroscience Provider 02/12/20 08/09/21 Sherri Kingston PA [address] [place] [address] 638105 Assigned Surgical Provider 07/15/20 10/06/20 Pedro Winchester MD [address] [place] [address] Assigned Heart and Vascular Provider 08/05/20 01/31/22 Shakira Chapa MD [place] 06/29/2020 Assigned Surgical Provider 10/07/20 10/13/20 Jovanni Dempsey MD 600 [place], [place] [id number] Assigned Nephrology Provider 03/24/21 03/14/22 Jovanni Dempsey MD 600 [place], [place] [id number] Assigned Nephrology Provider 03/15/22 03/21/22 Len Hooks MD [address] [facility] 353 [place] [address] Assigned Nephrology Provider 03/22/22 12/26/22 Delvin Bob MD [address] [facility] 250 [place], [place] 283825 Assigned PCP 04/26/22 12/12/22 Love Hernandez PA-C [address] [place] [address] Physician Straight Pin Making Machine Operator Urology 12/01/22 Conrado Evans MD [address] [facility] 353 [facility] [address] [place], [place] [id number] Assigned Nephrology Provider 12/27/22 06/21/24 Love Hernandez PA-C 6363 [facility] 500 [place] [address] Assigned Surgical Provider 01/17/23 [place] [address] [address], [place] [address] Assigned Gastroenterology Provider 07/23/23 Everardo Grant MD [address] [place] [address] Physician Infectious Diseases 09/23/23 Rey Billings MD [address] [place] [address] Assigned Infectious Disease Provider 10/23/23 Conrado Evans MD [address] [place] [address] 353 [facility] [address] [place] [address] Nephrology 08/25/24 Delvin Lopez MD [address] [place] [address] 909745 Nephrology 08/25/24 Carissa Putnam, [facility] 7[address] [place], [place] [address] Specialty Sponge Maker Pharmacy 10/10/24 10/10/24 documented as of this encounter
--- OUTSIDE RECORDS SUMMARY | 2024-10-13 09:00 | XMS_ITS | Encounter Summary ---
Author Organization [facility] Address [address] [place] [address] Care Team Providers Care Stock Preparation Operator Name Role Phone Robert Marley MD Primary Care Provider Chana Cheng MD Unavailable [phone] Anoop Garcia MD Unavailable Unavailable Barbara Carlson MD Unavailable Tayo Lacey MD Unavailable [phone] TuBasil shaikh MD Unavailable Charleen Lynne MD Unavailable [phone] Olimpia Williamson RN Unavailable [phone] Rin Dewitt RN Unavailable [phone] Rin Dewitt RN Unavailable [phone] Qian Rodriguez MD Unavailable [phone] Sherri Kingston Unavailable [phone] Olimpia Williamson RN Unavailable [phone] Olimpia Williamson RN Unavailable [phone] Christopher Quiroga MD Unavailable Claudia Yousif RN Unavailable Lance Simpson PA-C Unavailable [phone] Olimpia Williamson RN Unavailable [phone] Sherri Kingston Unavailable Delvin Bob MD Unavailable Charleen Lynne MD Unavailable [phone] ChapaShakira zelaya MD Unavailable Unav ailable AmbarZoltan soares ADRIANM Unavailable [phone] Delvin Bob MD Unavailable Shante Mathisony Jaden LÓPEZ Unavailable + Sherri Kingston Unavailable Pedro Winchester MD Unavailable ChapaShakira zelaya MD Unavailable Unav ailable Jovanni Dempsey MD Unavailable Jovanni Dempsey MD Unavailable [phone] Len Hooks MD Unavailable Delvin Bob MD Unavailable [phone] Love Hernandez PA-C Unavailable [phone] Conrado Evans MD Unavailable Love Hernandez PA-C Unavailable [phone] Gordy Nickerson MD Unavailable [phone] Everardo Grant MD Unavailable Rey Billings MD Unavailable Conrado Evans MD Unavailable [phone] Delvin Lopez MD Unavailable [phone] Carissa Putnam RN Unavailable [phone] Encounter Details Date Type Department Care Team (Late st Contact Info) Description 12/08/2014 External Order Results [facility], Clinic [address] [address] Social History Tobacco Use Types Packs/Day Years Used Date Smoking Tobacco: Former Smokeless Tobacco: Never Alcohol Use Standard Drinks/Week Comments No 0 (1 standard drink = 0.6 oz pur e alcohol) Comments No Sex and Gender Information Value Date Recorded Sex Assigned at Not on file Legal Sex Female 3:26 AM AGILE COACH Gender Identity Not on file Sexual Orientation [...] [facility] [address] [place] [address] Edith Brito 10/26/2024 8:30 AM CDT Lab [facility] [address] [facility] 200 [place] [address] Conrado Evans MD 717 [facility] 353 [facility] [address] [place], [place] [address] documented as of this encounter Procedures Procedure Name Priority Date/Time Associated Diagnosis Comments EXTERNAL LAB RESULTS Routine 12/08/2014 10:37 AM CDT documented in this encounter Results * (ABNORMAL) TXP External Lab Result (12/08/2014 10:37 AM CDT) Potassium (External) 3.3(L) 3.6 - 5.1 mmol/L LABDE SCAN 12/08/2014 10:3 7 AM CDT Narrative BOBBY PFT - 12/08/2014 2:08 PM CDT Verified by Alejandra Arellano on 12/08/2014. us Patient Reported LABORATORY Edited Result - Final BRETOYIN PFT LABDE SCAN documented in this encounter [...] the IP on-call for review. Meena Torres [facility] Infection Prevention 07/11/2019 at [...] Out COVID-19 04/19/2020 04/19/2020 04/19/2020 1:56 PM AGILE COACH Rule Out COVID-19 04/19/2020 04/20/2020 04/20/2020 6:34 AM AGILE COACH Rule Out COVID-19 12/15/2020 12/15/2020 12/15/2020 4:33 PM CDT Rule Out C-difficile 01/06/2021 01/08/2021 021 11:43 AM AGILE COACH Rule Out C-difficile 07/10/2021 07/10/2021 022 5:56 PM CDT Rule Out C-difficile 07/16/2023 07/16/2023 024 9:21 PM CDT Rule Out Parvovirus 07/16/2023 07/16/2023 07/19/19 24 12:29 PM CDT Parvovirus 07/16/2023 07/16/2023 10/03/2024 4:22 PM CDT [id number] Comment:This patient was exposed to a person with a known CP-DATA SECURITY ADMINISTRATOR and has the potential for having acquired this pathogen of concern. The [place] Department of Health ([facility]) and CDC recommend that we screen this patient to prevent the spread of these organisms within our healthcare facility. Infection Prevention has placed orders for collecting a rectal swab for CP-DATA SECURITY ADMINISTRATOR to evaluate if this patient is now a carrier. This patient was identified to have a low risk exposure in which case Contact Precautions are not necessary unless the patient tests positive. Screening is voluntary. Please notify Infection Prevention if the patient declines testing. Additional information and resources can be found on the Infection Prevention MDRO Sharepoint page. 08/04/2023 08/04/2023 02/02/2024 11:39 PM AGILE COACH Rule Out Parvovirus 09/28/2023 09/28/2023 10/05/19 24 11:41 PM CDT documented as of this encounter Care Teams Stock Preparation Operator Relationship Specialty Start Date End Date Robert Marley MD [address] [address] PCP - General Family Practice 12/08/10 Chana Cheng MD [facility] [address] [place] [address] Nephrology 05/26/14 11/12/15 Anoop Garcia MD [facility] [address] [place] [address] Transplant 05/26/14 02/02/18 Barbara Carlson MD [address] [place] [address] Referring Physician Nephrology 08/30/14 11/12/15 Tayo Lacey MD [address] [place] [address] Cardiology 08/30/14 Basil Plummer MD [address] [place] [address] Neurology 05/09/15 04/23/16 Charleen Lynne MD [address] [place] [address] 256595 MD Oncology 06/14/15 12/19/18 Olimpia Williamson RN Nurse Coordinator Oncology 06/14/15 04/23/16 Rin Dewitt RN Nurse Coordinator Neurology 07/24/15 04/23/16 Rin Dewitt RN Nurse Coordinator Neurology 10/25/15 10/12/17 Qian Rodriguez MD 717 [facility] 353 [place] [address] Nephrology 11/13/15 06/16/16 Sherri Kingston PA 420 [facility] 394 [place] [address] Physician Bitumen Plant Operator Physician Bitumen Plant Operator 03/20/16 Olimpia Williamson, RN Nurse Coordinator Oncology 06/26/16 06/26/16 Olimpia Williamson, RN Nurse Coordinator Oncology 06/26/16 06/16/18 Christopher Quiroga MD [facility] [address] [place] [address] MD Oncology 07/02/16 Claudia Yousif RN Nurse Coordinator Gastroenterology 02/09/17 09/16/22 Lance Simpson PA-C [address] [place] [address] Physician Bitumen Plant Operator Physician Bitumen Plant Operator 01/07/18 Olimpia Williamson, SONIA Specialty Community Services Officer Hematology & Oncology 05/06/18 12/19/18 Sherri Kingston PA [address] [place] [address] Urology [place], [place] [address] Physician Bitumen Plant Operator Physician Bitumen Plant Operator 12/21/18 Delvin Bob MD [address] [place] [address] 250 [place], [place] [address] Internal Medicine 11/11/19 Charleen Lynne MD [address] [place] [address] 484025 Assigned Cancer Care Provider 12/23/19 03/23/21 Shakira Chapa MD [place]IVE [place] OF 06/29/2020 Assigned Surgical Provider 12/23/19 07/14/20 Zoltan Eric DPM [id number] [place] [address] [address] [place] [address] Assigned Musculoskeletal Provider 12/23/19 07/26/21 Delvin Bob MD 420 [facility] 250 [place] [address] Assigned PCP 12/08/19 02/14/22 Maximo Mathis DO 909 [place] [address] Assigned Neuroscience Provider 02/12/20 08/09/21 Sherri Kingston PA 909 [facility] [place] [address] Assigned Surgical Provider 07/15/20 10/06/20 Pedro Winchester MD 6405 [facility] [place] [address] Assigned Heart and Vascular Provider 08/05/20 01/31/22 Shakira Chapa MD [place] OF 06/29/2020 Assigned Surgical Provider 10/07/20 10/13/20 Jovanni Dempsey MD 600 [place] [address] Assigned Nephrology Provider 03/24/21 03/14/22 Jovanni Dempsey MD 600 [place] [address] Assigned Nephrology Provider 03/15/22 03/21/22 Len Hooks MD [address] [address] Assigned Nephrology Provider 03/22/22 12/26/22 Delvin Bob MD [address] [place] [address] 250 [place] [address] Assigned PCP 04/26/22 12/12/22 Love Hernandez PA-C 6363 [facility] 500 [place] [address] Physician Bitumen Plant Operator Urology 12/01/22 Conrado Evans MD [address] [place] [address] 353 [facility] [address] [place] [address] Assigned Nephrology Provider 12/27/22 06/21/24 Love Hernandez PA-C 6363 [facility] 500 [place], [place] [address] Assigned Surgical Provider 01/17/23 [place] [address] [place] [address] Assigned Gastroenterology Provider 07/23/23 Everardo Grant MD [address] [place] [address] Physician Infectious Diseases 09/23/23 Rey Billings MD [address] [place] [address] Assigned Infectious Disease Provider 10/23/23 Conrado Evans MD [address] [place] [address] 1932 [place] [address] Nephrology 08/25/24 Delvin Lopez MD 909 [place] [address] Nephrology 08/25/24 Carissa Putnam RN [facility] [address] [place] [address] Specialty Community Services Officer Pharmacy 10/10/24 10/10/24 documented as of this encounter
--- OUTSIDE RECORDS SUMMARY | 2024-10-13 09:00 | XMS_ITS | Encounter Summary ---
Author Organization [place] Address [address] [place] [address] Care Team Providers Care Branch Library Clerk Name Role Phone Robert Marley MD Primary Care Provider Chana Cheng MD Unavailable [phone] Anoop Garcia MD Unavailable Unavailable Barbara Carlson MD Unavailable Tayo Lacey MD Unavailable [phone] TuBasil shaikh MD Unavailable Charleen Lynne MD Unavailable [phone] Olimpia Williamson RN Unavailable [phone] Rin Dewitt RN Unavailable [phone] Rin Dewitt RN Unavailable [phone] Qian Rodriguez MD Unavailable [phone] Sherri Kingston Unavailable [phone] Olimpia Williamson RN Unavailable [phone] Olimpia Williamson RN Unavailable [phone] Christopher Quiroga MD Unavailable Claudia Yousif RN Unavailable Lance Simpson PA-C Unavailable [phone] Olimpia Williamson RN Unavailable [phone] Sherri Kingston Unavailable [phone] Delvin Bob MD Unavailable Charleen Lynne MD Unavailable [phone] ChapaShakira zelaya MD Unavailable Unav ailable AmbarZoltan soares ADRIANM Unavailable +[phone] Delvin Bob MD Unavailable Shante Mathisony Jaden LÓPEZ Unavailable + Sherri Kingston Unavailable Pedro Winchester MD Unavailable ChapaShakira zelaya MD Unavailable Unav ailable Jovanni Dempsey MD Unavailable [phone] Jovanni Dempsey MD Unavailable [phone] Len Hooks MD Unavailable Delvin Bob MD Unavailable Love Hernandez PA-C Unavailable Conrado Evans MD Unavailable Love Hernandez PA-C Unavailable Gordy Nickerson MD Unavailable [phone] Everardo Grant MD Unavailable Rey Billings MD Unavailable Conrado Evans MD Unavailable Delvin Lopez MD Unavailable [phone] Carissa Putnam RN Unavailable [phone] Encounter Details Date Type Department Care Team (Late st Contact Info) Description 10/23/2014 External Order Results [facility]nd [facility], Clinic [address] [address] Social History Tobacco Use Types Packs/Day Years Used Date Smoking Tobacco: Former Smokeless Tobacco: Never Alcohol Use Standard Drinks/Week Comments No 0 (1 standard drink = 0.6 oz pur e alcohol) Comments No Sex and Gender Information Value Date Recorded Sex Assigned at Not on file 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 Sex 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 Gender Identity Not on file Sexual Orientation Not on file Occupation Industry Job Start Date Job End Date Not on file Not on file Not on file Not on file documented as of this encounter Plan of Treatment Upcoming Encounters Date Type Department Care Team (Late st Contact Info) Description 10/25/2024 10:00 AM CDT Virtual Visit [facility] [address] [place] [address] Edith Brito 10/26/2024 8:30 AM CDT Lab [facility] [address] [facility] 200 [place] [address] Conrado Evans MD 717 [facility] 353 [facility] 1932 [place], [place] [address] documented as of this encounter Procedures Procedure Name Priority Date/Time Associated Diagnosis Comments EXTERNAL LAB RESULTS Routine 10/19/2014 10:00 AM CDT documented in this encounter Results * (ABNORMAL) TXP External Lab Result (10/19/2014 10:00 AM CDT) Calcium (External) 9.0 8.4 - 10.6 mg/dL [facility]DE SCAN Urea Nitrogen (External) 19 5 - 24 mg/dL [facility]DE SCAN Creatinine (External) 0.8 0.5 - 1.5 mg/dL [facility]DE SCAN Glucose (External) 91 60 - 115 mg/dL [facility]DE SCAN Sodium (External) 141 135 - 149 mmol/L LABDE SCAN Potassium (External) 4.6 3.6 - 5.1 mmol/L LABDE SCAN Chloride (External) 110 96 - 114 mmol/L [facility]DE SCAN CO2 (External) 25 20 - 32 mmol/L LABDE SCAN Amylase (External) 64 18 - 89 U/L [facility]DE SCAN Lipase Level (External) 71 23 - 300 U/L [facility] SC[facility] INR (External) 2.6(H) 0.88 - 1.12 [facility] WBC Count (External) 4.01(L) 5.0 - 10.0 K/uL LABDE SCAN RBC Count (External) 4.89 3.9 - 5.03 M/uL LABDE SCAN Hemoglobin (External) 12.7 12.0 - 15.5 g/dL LABDE SCAN Hematocrit (External) 40.1 34.9 - 44.5 % LABDE SCAN MCV (External) 82 82 - 98 fL LABDE SCAN MCH (External) 26(L) 27 - 34 pg LABDE SCAN MCHC (External) 32 32 - 36 g/dL LABDE SCAN Platelet Count (External) 63(L) 150 - 450 K/uL LABDE SCAN % Neutrophils (External) 72.6(H) 50 - 70 % LABDE SCAN % Lymphocytes (External) 14.0(L) 25 - 45 % LABDE SCAN % Monocytes (External) 9.5 0 - 11 % LABDE SCAN % Eosinophils (External) 3.2 0 - 7 % LABDE SCAN % Basophils (External) 0.5 0 - 3 % LABDE SCAN Absolute Neutrophils (External) 2.91 1.7 - 7.0 K/uL LABDE SCAN Absolute Lymphocytes (External) 0.56(L) 0.9 - 2.9 K/uL LABDE SCAN Absolute Monocytes (External) 0.38 0.3 - 0.9 K/uL LABDE SCAN Absolute Eosinophils (External) 0.13 0.0 - 0.5 K/uL LABDE SCAN Absolute Basophils (External) 0.02 0.0 - 0.2 K/uL LABDE SCAN 10/19/2014 10:0 0 AM CDT Narrative [facility] PFT - 10/23/2014 10:11 AM CDT Verified by Guerrero Pinzon on 10/23/2014. us Patient Reported LABORATORY Edited Result - [...] the IP on-call for review. Meena Torres [facility] Infection Prevention 07/11/2019 at [...] Out COVID-19 04/19/2020 04/19/2020 04/19/2020 1:56 PM BIOTECH PRODUCTION SPECIALIST Rule Out COVID-19 04/19/2020 04/20/2020 04/20/2020 6:34 AM BIOTECH PRODUCTION SPECIALIST Rule Out COVID-19 12/15/2020 12/15/2020 12/15/2020 4:33 PM CDT Rule Out C-difficile 01/06/2021 01/08/2021 021 11:43 AM BIOTECH PRODUCTION SPECIALIST Rule Out C-difficile 07/10/2021 07/10/2021 022 5:56 PM CDT Rule Out C-difficile 07/16/2023 07/16/2023 024 9:21 PM CDT Rule Out Parvovirus 07/16/2023 07/16/2023 07/19/19 24 12:29 PM CDT Parvovirus 07/16/2023 07/16/2023 10/03/2024 4:22 PM CDT [id number] Comment:This patient was exposed to a person with a known CP-QUALITY LEAD and has the potential for having acquired this pathogen of concern. The [place] Department of Health ([facility]) and CDC recommend that we screen this patient to prevent the spread of these organisms within our healthcare facility. Infection Prevention has placed orders for collecting a rectal swab for CP-QUALITY LEAD to evaluate if this patient is [...] Sharepoint page. 08/04/2023 08/04/2023 02/02/2024 11:39 PM BIOTECH PRODUCTION SPECIALIST Rule Out Parvovirus 09/28/2023 09/28/2023 10/05/19 24 11:41 PM CDT documented as of this encounter Care Teams Branch Library Clerk Relationship Specialty Start Date End Date Robert Marley MD [address] [address] PCP - General Family Practice 12/08/10 Chana Cheng MD [facility] [address] [place] [address] Nephrology 05/26/14 11/12/15 Anoop Garcia MD [facility] [address] [place] [address] Transplant 05/26/14 02/02/18 Barbara Carlson MD [address] [place] [phone] Referring Physician Nephrology 08/30/14 11/12/15 Tayo Lacey MD [address] [place] [address] Cardiology 08/30/14 Basil Plummer MD [address] [place] [address] 914235 Neurology 05/09/15 04/23/16 Charleen Lynne MD [address] [place] [address]185 MD Oncology 06/14/15 12/19/18 Olimpia Williamson RN Nurse Coordinator Oncology 06/14/15 04/23/16 Rin Dewitt RN Nurse Coordinator Neurology 07/24/15 04/23/16 Rin Dewitt RN Nurse Coordinator Neurology 10/25/15 10/12/17 Qian Rodriguez MD 717 [facility] 353 [place], [place] 2525[address] Nephrology 11/13/15 06/16/16 Sherri Kingston PA 420 [facility] 394 [place], [place] 5[address] Physician Oxygen Therapy Technician Physician Oxygen Therapy Technician 03/20/16 Olimpia Williamson, RN Nurse Coordinator Oncology 06/26/16 06/26/16 Olimpia Williamson, RN Nurse Coordinator Oncology 06/26/16 06/16/18 Christopher Quiroga MD [facility] [address] [place], [place] [address] MD Oncology 07/02/16 Claudia Yousif RN Nurse Coordinator Gastroenterology 02/09/17 09/16/22 Lance Simpson PA-C [address] [place] [address] 996355 Physician Oxygen Therapy Technician Physician Oxygen Therapy Technician 01/07/18 Olimpia Williamson, RN Specialty Smokehouse Operator Hematology & Oncology 05/06/18 12/19/18 Sherri Kingston PA [address] [place] [address] Urology [place], [place] 0[address] Physician Oxygen Therapy Technician Physician Oxygen Therapy Technician 12/21/18 Delvin Bob MD [address] [place] [address] 250 [place], [place] [address] Internal Medicine 11/11/19 Charleen Lynne MD [address] [place] [address] [phone] Assigned Cancer Care Provider 12/23/19 03/23/21 Shakira Chapa MD [place] 06/29/2020 Assigned Surgical Provider 12/23/19 07/14/20 Zoltan Eric DPM [address] [facility] [address] [place] [address] Assigned Musculoskeletal Provider 12/23/19 07/26/21 Delvin Bob MD 420 [facility] 250 [place] [address] Assigned PCP 12/08/19 02/14/22 Maximo Mathis DO 909 [place] [address] Assigned Neuroscience Provider 02/12/20 08/09/21 Sherri Kingston PA 909 [facility] [place] [address] Assigned Surgical Provider 07/15/20 10/06/20 Pedro Winchester MD 6405 [place] [address] Assigned Heart and Vascular Provider 08/05/20 01/31/22 Shakira Chapa MD [place] 06/29/2020 Assigned Surgical Provider 10/07/20 10/13/20 Jovanni Dempsey MD 600 [place] [address] Assigned Nephrology Provider 03/24/21 03/14/22 Jovanni Dempsey MD 600 [place] [address] Assigned Nephrology Provider 03/15/22 03/21/22 Len Hooks MD [address] [address] Assigned Nephrology Provider 03/22/22 12/26/22 Delvin Bob MD [address] [place] [address] 250 [place] [address] Assigned PCP 04/26/22 12/12/22 Love Hernandez PA-C 6363 [facility] 500 [place] [address] Physician Oxygen Therapy Technician Urology 12/01/22 Conrado Evans MD [address] [place] [address] Assigned Nephrology Provider 12/27/22 06/21/24 Love Hernandez PA-C [address] [facility] [address] [address] [facility] 500 [place], [place] [address] Assigned Surgical Provider 01/17/23 [place] [address] [address] [address] Assigned Gastroenterology Provider 07/23/23 Everardo Grant MD [address] [place] [address] Physician Infectious Diseases 09/23/23 Rey Billings MD [address] [place] [address] Assigned Infectious Disease Provider 10/23/23 Conrado Evans MD [address] [place] [address] Nephrology 08/25/24 Delvin Lopez MD 9 [place] [address] Nephrology 08/25/24 Carissa Putnam RN [facility] 711 [place], [place] 8[address] Specialty Smokehouse Operator Pharmacy 10/10/24 10/10/24 documented as of this encounter
--- OUTSIDE RECORDS SUMMARY | 2024-10-13 09:00 | XMS_ITS | Encounter Summary ---
Author Organization [facility] Address [address] [place] [address] Care Team Providers Care Poultry Processor Name Role Phone Robert Marley MD Primary Care Provider [phone] Tayo Lacey MD Unavailable [phone] Christopher Quiroga MD Unavailable Claudia Yousif RN Unavailable Lance SimpsonC Unavailable [phone] Sherri Kingston Unavailable [phone] Delvin Bob MD Unavailable [phone] Charleen Lynne MD Unavailable [phone] Shakira Chapa MD Unavailable Unav ailable Zoltan Eric DPM Unavailable [phone] Delvin Bob MD Unavailable [phone] Maximo Mathis DO Unavailable + Sherri Kingston Unavailable [phone] Pedro Winchester MD Unavailable [phone] Shakira Chapa MD Unavailable Unav ailable Jovanni Dempsey MD Unavailable [phone] Jovanni Dempsey MD Unavailable [phone] Len Hooks MD Unavailable Delvin Bob MD Unavailable [phone] Love Hernandez PA-C Unavailable [phone] Conrado Evans MD Unavailable [phone] Love Hernandez PA-C Unavailable [phone] Gordy Nickerson MD Unavailable [phone] Everardo Grant MD Unavailable Rey Billings MD Unavailable [phone] Conrado Evans MD Unavailable [phone] Delvin Lopez MD Unavailable [phone] Carissa Putnam RN Unavailable [phone] Encounter Details Date Type Department Care Team (Late Contact Info) Description 01/20/2020 MyC Medical Advice [facility] [address] [place] [address] Diana Parsons, RN Social History Tobacco Use Types Packs/Day Years Used Date Smoking Tobacco: Former Smokeless Tobacco: Never Alcohol Use Standard Drinks/Week Comments No 0 (1 standard drink = 0.6 oz pur e alcohol) PHQ-2 Answer Date Recorded PHQ-2 Score 2 04/05/2019 Comments No Sex and Gender Information Value Date Recorded Sex Assigned at Not on file Legal Sex 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 No / Unsure 01/23/2020 1:30 PM CHIEF OPERATOR documented as of this encounter Plan of Treatment Upcoming Encounters Date Type Department Care Team (Late Contact Info) Description 10/25/2024 10:00 AM CDT Virtual Visit [facility] [address] [place] [address] Edith Brito 10/26/2024 8:30 AM CDT [facility] [address] [place] [address] [place] [phone] Conrado Evans MD 717 [facility] 353 [facility] 1932 [place] [address] documented as of this encounter Visit Diagnoses Not on filedocumented in this encounter Additional Health Concerns 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, 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 Rule Out COVID-19 04/19/2020 04/19/2020 04/19/2020 1:56 PM CHIEF OPERATOR Rule Out COVID-19 04/19/2020 04/20/2020 04/20/2020 6:34 AM CHIEF OPERATOR Rule Out COVID-19 12/15/2020 12/15/2020 12/15/2020 4:33 PM CDT Rule Out C-difficile 01/06/2021 01/08/2021 021 11:43 AM CHIEF OPERATOR Rule Out C-difficile 07/10/2021 07/10/2021 022 5:56 PM CDT Rule Out C-difficile 07/16/2023 07/16/2023 024 9:21 PM CDT Rule Out Parvovirus 07/16/2023 07/16/2023 07/19/19 24 12:29 PM CDT Parvovirus 07/16/2023 07/16/2023 10/03/2024 4:22 PM CDT [id number] Comment:This patient was exposed to a person with a known CP-PAYMENT REP and has the potential for having acquired this pathogen of concern. The [place] Department of Health ([facility]) and CDC recommend that we screen this patient to prevent the spread of these organisms within our healthcare facility. Infection Prevention has placed orders for collecting a rectal swab for CP-PAYMENT REP to evaluate if this patient is now a carrier. This patient was identified to have a low risk exposure in which case Contact Precautions are not necessary unless the patient tests positive. Screening is voluntary. Please notify Infection Prevention if the patient declines testing. Additional information and resources can be found on the Infection Prevention MDRO Sharepoint page. 08/04/2023 08/04/2023 02/02/2024 11:39 PM CHIEF OPERATOR Rule Out Parvovirus 09/28/2023 09/28/2023 10/05/19 24 11:41 PM CDT Assessment Noted Time PHQ-9 Depression Total Score: 11 020 2:07 PM CHIEF OPERATOR documented as of this encounter Care Teams Poultry Processor Relationship Specialty Start Date End Date Robert Marley MD [facility] [address] [place] [address] PCP - General Family Practice 12/08/10 Tayo Lacey MD [facility] [address] [place] [address] Cardiology 08/30/14 Christopher Quiroga MD [facility] [address] [facility] 200 [place] [address] Oncology 07/02/16 Claudia Yousif RN Nurse Coordinator Gastroenterology 02/09/17 09/16/22 Lance Simpson PA-C [address] [place] [address]315 Physician Roughing Mill Operator Physician Roughing Mill Operator 01/07/18 Sherri Kingston PA [address] [place] [address] Urology [place], [place] [address] Physician Roughing Mill Operator Physician Roughing Mill Operator 12/21/18 Delvin Bob MD [address] [place] [address] 250 [place], [place] [address] Internal Medicine 11/11/19 Charleen Lynne MD 909 [place] [address] Assigned Cancer Care Provider 12/23/19 03/23/21 Shakira Chapa MD [place] OF 06/29/2020 Assigned Surgical Provider 12/23/19 Zoltan Eric DPM [address] [facility] [address] [place] [address] Assigned Musculoskeletal Provider 12/23/19 07/26/21 Delvin Bob MD [address] [place] [address] 250 [place] [address] Assigned PCP 12/08/19 02/14/22 Maximo Mathis DO 909 [place], [place] [address] Assigned Neuroscience Provider 02/12/20 08/09/21 Sherir Kingston PA 909 [facility] Urology [place], [place] [address] Assigned Surgical Provider 07/15/2010/06/20 Pedro Winchester MD [address] [place] [address] Assigned Heart and Vascular Provider 08/05/20 01/31/22 Shakira Chapa MD [place]CTIVE IN [place] OF 06/29/2020 Assigned Surgical Provider 10/07/20 Jovanni Dempsey MD 600 [place] [address] Assigned Nephrology Provider 03/24/21 03/14/22 Jovanni Dempsey MD 600 [place] [address] Assigned Nephrology Provider 03/15/22 03/21/22 Len Hooks MD [address] [place] [address] Assigned Nephrology Provider 03/22/22 12/26/22 Delvin Bob MD [address] [facility] 250 [place], [place] [address] Assigned PCP 04/26/22 12/12/22 Love Hernandez PA-C [address] [place], [place] [address] Physician Roughing Mill Operator Urology 12/01/22 Conrado Evans MD [address] [facility] [place] 353 [facility] 1932 [place] [address] Assigned Nephrology Provider 12/27/22 06/21/24 Love Henrandez PA-C [address] [place], [place] [address] Assigned Surgical Provider 01/17/23 [place] [address] [address] [address] Assigned Gastroenterology Provider 07/23/23 Everardo Grant MD 9 [place], [place] [address] Physician Infectious Diseases 09/23/23 Rey Billings MD [address] [place] [address] 644885 Assigned Infectious Disease Provider 10/23/23 Conrado Evans MD [address] [place] [address] 353 [facility] [address] [place], [place] [id number] Nephrology 08/25/24 Delvin Lopez MD [address] [place] [address] 882925 Nephrology 08/25/24 Carissa Putnam, RN [facility] 711 [place], [place] [address]84 Specialty [facility] 10/10/24 documented as of this encounter
--- OUTSIDE RECORDS SUMMARY | 2024-10-13 09:00 | XMS_ITS | Encounter Summary ---
Author Organization [facility] Address [address] [place] [address] Care Team Providers Care Manager Project Management Name Role Phone Robert Marley MD Primary Care Provider Chana Cheng MD Unavailable [phone] Anoop Garcia MD Unavailable Unavailable Barbara Carlson MD Unavailable Tayo Lacey MD Unavailable [phone] TuBasil shaikh MD Unavailable Charleen Lynne MD Unavailable [phone] Olimpia Williamson RN Unavailable [phone] Rin Dewitt RN Unavailable [phone] Rin Dewitt RN Unavailable [phone] Qian Rodriguez MD Unavailable [phone] Sherri Kingston Unavailable [phone] Olimpia Williamson RN Unavailable [phone] Olimpia Williamson RN Unavailable [phone] Christopher Quiroga MD Unavailable Claudia Yousif RN Unavailable Lance Simpson PA-C Unavailable [phone] Olimpia Williamson RN Unavailable [phone] Sherri Kingston Unavailable Delvin Bob MD Unavailable Charleen Lynne MD Unavailable [phone] ChapaShakira zelaya MD Unavailable Unav ailable AmbarZoltan soares ADRIANM Unavailable [phone] Delvin Bob MD Unavailable Shante Mathisony Jaden LÓPEZ Unavailable + Sherri Kingston Unavailable Pedro Winchester MD Unavailable ChapaShakira zelaya MD Unavailable Unav ailable Jovanni Dempsey MD Unavailable Jovanni Dempsey MD Unavailable [phone] Len Hooks MD Unavailable Delvin Bob MD Unavailable Love Hernandez PA-C Unavailable Conrado Evans MD Unavailable [phone] Love Hernandez PA-C Unavailable Gordy Nickerson MD Unavailable Everardo Grant MD Unavailable Rey Billings MD Unavailable Conrado Evans MD Unavailable Delvin Lopez MD Unavailable [phone] Carissa Putnam RN Unavailable [phone] Encounter Details Date Type Department Care Team (Late st Contact Info) Description 11/16/2014 External Order Results [facility] [address] [address] Social History Tobacco Use Types Packs/Day Years Used Date Smoking Tobacco: Former Smokeless Tobacco: Never Alcohol Use Standard Drinks/Week Comments No 0 (1 standard drink = 0.6 oz pur e alcohol) Comments No Sex and Gender Information Value Date Recorded Sex Assigned at Not on file Legal Sex Female 3:26 AM DIRECTOR QUALITY SYSTEMS Gender Identity Not on file Sexual Orientation [...] [facility] [address] [place] [address] Edith Brito 10/26/2024 8:30 AM CDT Lab [facility] [address] [facility] 200 [place] [address] Conrado Evans MD 717 [facility] 353 [facility] 1932 [place], [place] [address] documented as of this encounter Procedures Procedure Name Priority Date/Time Associated Diagnosis Comments EXTERNAL LAB RESULTS Routine 11/09/2014 9:30 AM CDT documented in this encounter Results * (ABNORMAL) TXP External Lab Result (11/09/2014 9:30 AM CDT) Calcium (External) 9.9 8.4 - 10.6 MG/DL LABDE SCAN Urea Nitrogen (External) 23 5 - 24 LABDE SCAN Creatinine (External) 0.9 0.5 - 1.5 MG/DL LABDE SCAN Glucose (External) 86 60 - 115 mg/dL LABDE SCAN Sodium (External) 143 135 - 149 LABDE SCAN Potassium (External) 4.1 LABDE SCAN Chloride (External) 110 96 - 114 MMOL/L LABDE SCAN CO2 (External) 20 20 - 321 MMOL/L LABDE SCAN Amylase (External) 77 18 - 89 U/L LABDE SCAN Lipase Level (External) 89 23 - 300 U/L LABDE SCAN INR (External) 2.7(A) 0.88 - 1.12 LABDE SCAN WBC Count (External) 3.93(L) 5.00 - 10.00 K/uL LABDE SCAN RBC Count (External) 4.10 LABDE SCAN Hemoglobin (External) 10.5(L) 12.0 - 15.5 GM/DL LABDE SCAN Hematocrit (External) 33.7 LABDE SCAN MCV (External) 82 82 - 98 FL LABDE SCAN MCH (External) 26(L) 27 - 341 LABDE SCAN MCHC (External) 31(L) 32 - 36 GM/DL LABDE SCAN Platelet Count (External) 65 LABDE SCAN % Neutrophils (External) 69.2 50.0 - 70.0 % LABDE SCAN % Lymphocytes (External) 12.2 0.0 - 45.0 % LABDE SCAN % Monocytes (External) 14.0(H) % LABDE SCAN % Eosinophils (External) 8.8 % LABDE SCAN % Basophils (External) 0.8 0.0 - 3.0 % LABDE SCAN Absolute Lymphocytes (External) 0.48(L) 0.90 - 2.90 K/UL LABDE SCAN Absolute Monocytes (External) 0.55 LABDE SCAN Absolute Eosinophils (External) 0.15 LABDE SCAN Absolute Basophils (External) 0.03 LABDE SCAN % Immature Granulocytes (External) 0.0 LABDE SCAN Absolute Immature Granulocytes (External) 0.00 LABDE SCAN 11/09/2014 9:30 AM CDT Narrative BOBBY PFT - 11/16/2014 4:16 PM CDT Verified by Rylee Guzman on 11/16/2014. us Patient Reported LABORATORY Edited Result - [...] the IP on-call for review. Meena Torres, [facility] Infection Prevention 07/11/2019 at [...] COVID-19 04/19/2020 04/19/2020 04/19/2020 1:56 PM DIRECTOR QUALITY SYSTEMS Rule Out COVID-19 04/19/2020 04/20/2020 04/20/2020 6:34 AM DIRECTOR QUALITY SYSTEMS Rule Out COVID-19 12/15/2020 12/15/2020 12/15/2020 4:33 PM CDT Rule Out C-difficile 01/06/2021 01/08/2021 021 11:43 AM DIRECTOR QUALITY SYSTEMS Rule Out C-difficile 07/10/2021 07/10/2021 022 5:56 PM CDT Rule Out C-difficile 07/16/2023 07/16/2023 024 9:21 PM CDT Rule Out Parvovirus 07/16/2023 07/16/2023 07/19/19 24 12:29 PM CDT Parvovirus 07/16/2023 07/16/2023 10/03/2024 4:22 PM CDT [id number] Comment:This patient was exposed to a person with a known CP-AIRPORT OPERATIONS SUPERVISOR and has the potential for having acquired this pathogen of concern. The [place] Department of Health ([facility]) and CDC recommend that we screen this patient to prevent the spread of these organisms within our healthcare facility. Infection Prevention has placed orders for collecting a rectal swab for CP-AIRPORT OPERATIONS SUPERVISOR to evaluate if this patient is [...] page. 08/04/2023 08/04/2023 02/02/2024 11:39 PM DIRECTOR QUALITY SYSTEMS Rule Out Parvovirus 09/28/2023 09/28/2023 10/05/19 24 11:41 PM CDT documented as of this encounter Care Teams Manager Project Management Relationship Specialty Start Date End Date Robert Marley MD [address] [address] PCP - General Family Practice 12/08/10 Chana Cheng MD [facility] [address] [place] [address] Nephrology 05/26/14 11/12/15 Anoop Garcia MD [facility] [address] [place] [address] Transplant 05/26/14 02/02/18 Barbara Carlson MD [address] [place] [address] Referring Physician Nephrology 08/30/14 11/12/15 Tayo Lacey MD [address] [place] [address] Cardiology 08/30/14 Basil Plummer MD [address] [place] [address] Neurology 05/09/15 04/23/16 Charleen Lynne MD 9 [place] [address] MD Oncology 06/14/15 12/19/18 Olimpia Williamson, RN Nurse Coordinator Oncology 06/14/15 04/23/16 Rin Dewitt RN Nurse Coordinator Neurology 07/24/15 04/23/16 Rin Dewitt RN Nurse Coordinator Neurology 10/25/15 10/12/17 Qian Rodriguez MD [address] [place] [address] 353 [place] [address] Nephrology 11/13/15 06/16/16 Sherri Kingston PA 420 [facility] 394 [place] [address] Physician Land Use Planner Physician Land Use Planner 03/20/16 Olimpia Williamson, RN Nurse Coordinator Oncology 06/26/16 06/26/16 Olimpia Williamson, RN Nurse Coordinator Oncology 06/26/16 06/16/18 Christopher Quiroga MD [facility] [address] [facility] 200 [place] [address] Oncology 07/02/16 Claudia Yousif, RN Nurse Coordinator Gastroenterology 02/09/17 09/16/22 Lance Simpson PA-C 909 [place], [place] [address] Physician Land Use Planner Physician Land Use Planner 01/07/18 Olimpia Williamson, SONIA Specialty Transitions Manager Hematology & Oncology 05/06/18 12/19/18 Sherri Kingston PA [address] [place] [address] [place], [place] [address] Physician Land Use Planner Physician Land Use Planner 12/21/18 Delvin Bob MD [address] [place] [address] 250 [place], [place] [address] Internal Medicine 11/11/19 Charleen Lynne MD 9 [place], [place] [address] Assigned Cancer Care Provider 12/23/19 03/23/21 Shakira Chapa MD INACTIVE IN [place] OF 06/29/2020 Assigned Surgical Provider 12/23/19 07/14/20 Zoltan Eric DPM [address] [facility] [address] [place], [place] [address] Assigned Musculoskeletal Provider 12/23/19 07/26/21 Delvin Bob MD [address] [place] [address] 250 [place], [place] [address] Assigned PCP 12/08/19 02/14/22 Maximo Mathis DO 909 [place] [address] Assigned Neuroscience Provider 02/12/20 08/09/21 Sherri Kingston PA 909 [facility] [place] [address] Assigned Surgical Provider 07/15/20 10/06/20 Pedro Winchester MD 6[address] [place] [address] Assigned Heart and Vascular Provider 08/05/20 01/31/22 Shakira Chapa MD INACTIVE IN [place] OF 06/29/2020 Assigned Surgical Provider 10/07/20 10/13/20 Jovanni Dempsey MD [address] [place] [address] Assigned Nephrology Provider 03/24/21 03/14/22 Jovanni Dempsey MD [address] [place] [address] Assigned Nephrology Provider 03/15/22 03/21/22 Len Hooks MD 717 [facility] 353 [place] [address] Assigned Nephrology Provider 03/22/22 12/26/22 Delvin Bob MD 420 [facility] 250 [place] [address] Assigned PCP 04/26/22 12/12/22 Love Hernandez PA-C 6363 [facility] 500 [place] [address] Physician Land Use Planner Urology 12/01/22 Conrado Evans MD [address] [place] [address] [place] [address] Assigned Nephrology Provider 12/27/22 06/21/24 Love Hernandez PA-C 6363 [facility] 500 [place] [address] Assigned Surgical Provider 01/17/23 [place] [address] [address], [place] [address] Assigned Gastroenterology Provider 07/23/23 Everardo Grant MD [address] [place] [address] Physician Infectious Diseases 09/23/23 Rey Billings MD [address] [place] [address] Assigned Infectious Disease Provider 10/23/23 Conrado Evans MD [address] [place] [address] Nephrology 08/25/24 Delvin Lopez MD [address] [place] [address]15 Nephrology 08/25/24 Carissa Putnam, RN [facility] [address] [place] [id number] Specialty Transitions Manager Pharmacy 10/10/24 10/10/24 documented as of this encounter
--- OUTSIDE RECORDS SUMMARY | 2024-10-13 09:01 | XMS_ITS | Encounter Summary ---
Author Organization [facility] Address [address] [place] [address] Care Team Providers Care Cosmetics Machine Operator Name Role Phone Robert Marley MD Primary Care Provider [phone] Berna Kruse MD Unavailable [phone] Roxanna Armas RN Unavailable [phone] Irish Kim RN Unavailable [phone] Chana Cheng MD Unavailable [phone] Anoop Garcia MD Unavailable Unavailable Barbara Carlson MD Unavailable Tayo Lacey MD Unavailable [phone] TuBasil shaikh MD Unavailable MagedCharleen MD Unavailable [phone] Olimpia Williamson RN Unavailable [phone] Rin Dewitt RN Unavailable [phone] Rin Dewitt RN Unavailable [phone] Qian Rodriguez MD Unavailable [phone] Sherri Kingston Unavailable [phone] Olimpia Williamson RN Unavailable [phone] Olimpia Williamson RN Unavailable [phone] Christopher Quiroga MD Unavailable Claudia Yousif RN Unavailable Lance Simpson PA-C Unavailable [phone] Olimpia Williamson RN Unavailable [phone] Sherri Kingston PA Unavailable Delvin Bob MD Unavailable Charleen Lynne MD Unavailable [phone] ChapaShakira tellez MD Unavailable Unav ailable Hernesto Zoltan ADRIANM Unavailable [phone] Lisbeth, Delvin England MD Unavailable Maximo Mathis DO Unavailable + Sherri Kingston Unavailable Pedro Winchester MD Unavailable [phone] ChapaShakira zelaya MD Unavailable Unav ailable Jovanni Dempsey MD Unavailable [phone] Jovanni Dempsey MD Unavailable Len Hooks MD Unavailable Delvin Bob MD Unavailable [phone] Love Hernandez-C Unavailable [phone] Conrado Evans MD Unavailable [phone] Love Hernandez PA-C Unavailable [phone] Gordy Nickerson MD Unavailable Everardo Grant MD Unavailable Rey Billings MD Unavailable [phone] Conrado Evans MD Unavailable [phone] Delvin Lopez MD Unavailable [phone] Carissa Putnam RN Unavailable [phone] Encounter Details Date Type Department Care Team (Late Contact Info) Description 03/16/2014 External Order Results [facility], Clinic 2A [facility] [address] [facility] 88 [place] [phone] Social History Tobacco Use Types Packs/Day Years Used Date Smoking Tobacco: Former Smokeless Tobacco: Never Alcohol Use Standard Drinks/Week Comments No 0 (1 standard drink = 0.6 oz pur e alcohol) Comments No Sex and Gender Information Value Date Recorded Sex Assigned at Not on file Legal Sex Female 3:26 AM DRY CLEANING MANAGER Gender Identity Not on file Sexual Orientation Not on file Occupation Industry Job Start Date Job End Date Not on file Not on file Not on file Not on file documented as of this encounter Plan of Treatment Upcoming Encounters Date Type Department Care Team (Late Contact Info) Description 10/25/2024 10:00 AM CDT Virtual Visit [facility] [address] [place] [address] Edith Brito 10/26/2024 8:30 AM CDT Lab [facility] [address] [facility] 200 [place] [phone] Conrado Evans MD [address] [place] [address] 353 [facility] 1932 [place] [address] documented as of this encounter Procedures Procedure Name Priority Date/Time Associated Diagnosis Comments EXTERNAL LAB RESULTS Routine 03/13/2014 8:40 AM DRY CLEANING MANAGER EXTERNAL LAB RESULTS Routine 03/09/2014 8:40 AM DRY CLEANING MANAGER documented in this encounter Results * (ABNORMAL) TXP External Lab Result (03/13/2014 8:40 AM DRY CLEANING MANAGER) Glucose (External) 87 60 - 115 mg/dL LABDE SCAN Urea Nitrogen (External) 20 5 - 24 mg/dL LABDE SCAN Creatinine (External) 0.8 0.5 - 1.5 mg/dL LABDE SCAN Sodium (External) 145 135 - 149 mmol/L LABDE SCAN Potassium (External) 3.8 3.6 - 5.1 mmol/L LABDE SCAN Chloride (External) 102 96 - 114 mmol/L LABDE SCAN CO2 (External) 24 20 - 32 mmol/L LABDE SCAN Calcium (External) 8.4 8.4 - 10.6 mg/dL LABDE SCAN Phosphorus (External) 2.8 2.5 - 4.5 mg/dL LABDE SCAN Magnesium (External) 1.1(L) 1.5 - 2.6 mg/dL LABDE SCAN Amylase (External) 63 18 - 89 U/L LABDE SCAN Lipase Level (External) 100 23 - 300 U/L LABDE SCAN WBC Count (External) 4.38(L) 5.0 - 10.0 K/UL LABDE SCAN RBC Count (External) 3.97 3.9 - 5.03 M/UL LABDE SCAN Hemoglobin (External) 11.0(L) 12.0 - 15.5 g/dL LABDE SCAN Hematocrit (External) 36.0 34.9 - 44.5 % LABDE SCAN MCV (External) 91 82 - 96 fL LABDE SCAN MCH (External) 28 27 - 34 pg LABDE SCAN MCHC (External) 31(L) 32 - 36 g/dL LABDE SCAN Platelet Count (External) 238 150 - 450 K/UL LABDE SCAN % Neutrophils (External) 85.7(H) 50.0 - 70.0 % LABDE SCAN % Lymphocytes (External) 9.4(L) 25.0 - 45.0 % LABDE SCAN % Monocytes (External) 3.7 0.00 - 11.0 % LABDE SCAN % Eosinophils (External) 0.5 0.0 - 7.0 % LABDE SCAN % Basophils (External) 0.7 0.0 - 3.0 % LABDE SCAN % Immature Granulocytes (External) 0.0 % LABDE SCAN Absolute Neutrophils (External) 3.76 1.70 - 7.00 K/UL LABDE SCAN Absolute Lymphocytes (External) 0.41(L) 0.9 - 2.9 K/UL LABDE SCAN Absolute Monocytes (External) 0.16(L) 0.3 - 0.9 K/UL LABDE SCAN Absolute Eosinophils (External) 0.02 0.0 - 0.5 K/UL LABDE SCAN Absolute Basophils (External) 0.03 0.0 - 0.2 K/UL LABDE SCAN Absolute Immature Granulocytes (External) 0.0 K/UL LABDE SCAN Everolimus (External) 5.7 3 - 8 ng/mL LABDE SCAN 03/13/2014 8:40 AM DRY CLEANING MANAGER Narrative BOBBY NESBITT - 03/16/2014 3:47 PM DRY CLEANING MANAGER Verified by Guerrero Pinzon on 03/16/2014. us Patient Reported LABORATORY Edited Result - Final BOBBY PFT LABDE SCAN * (ABNORMAL) TXP External Lab Result (03/09/2014 8:40 AM DRY CLEANING MANAGER) WBC Count (External) 2.07(L) 5.0 - 10.0 K/uL LABDE SCAN RBC Count (External) 3.97 3.9 - 5.03 M/UL LABDE SCAN Hemoglobin (External) 11.2(L) 12.0 - 15.5 g/dL LABDE SCAN Hematocrit (External) 36.6 34.9 - 44.5 % LABDE SCAN MCH (External) 28 27 - 34 pg LABDE SCAN MCHC (External) 31(L) 32 - 36 g/dL LABDE SCAN Platelet Count (External) 230 150 - 450 K/UL LABDE SCAN % Neutrophils (External) 67.2 50.0 - 70.0 % LABDE SCAN % Lymphocytes (External) 20.8(L) 25.0 - 45.0 % LABDE SCAN % Monocytes (External) 7.7 0.0 - 11.0 % LABDE SCAN % Eosinophils (External) 2.4 0.0 - 7.0 % LABDE SCAN % Basophils (External) 1.9 0.0 - 3.0 % LABDE SCAN % Immature Granulocytes (External) 0.0 % LABDE SCAN Absolute Neutrophils (External) 1.39(L) 1.7 - 7.0 K/UL LABDE SCAN Absolute Lymphocytes (External) 0.43(L) 0.9 - 2.9 K/UL LABDE SCAN Absolute Monocytes (External) 0.16(L) 0.30 - 0.9 K/UL LABDE SCAN Absolute Eosinophils (External) 0.05 0.0 - 0.5 K/UL LABDE SCAN Absolute Basophils (External) 0.04 0.00 - 0.2 K/UL LABDE SCAN Absolute Immature Granulocytes (External) 0.0 K/UL LABDE SCAN Glucose (External) 76 60 - 115 mg/dL LABDE SCAN Urea Nitrogen (External) 16 5 - 24 mg/dL LABDE SCAN Creatinine (External) 0.9 0.5 - 1.5 mg/dL LABDE SCAN Sodium (External) 143 135 - 149 mmol/L LABDE SCAN Potassium (External) 3.6 3.6 - 5.1 mmol/L LABDE SCAN Chloride (External) 102 96 - 114 mmol/L LABDE SCAN CO2 (External) 24 20 - 32 mmol/L LABDE SCAN Calcium (External) 8.9 8.4 - 10.6 mg/dL LABDE SCAN Amylase (External) 56 18 - 89 U/L LABDE SCAN Lipase Level (External) 82 23 - 300 U/L LABDE SCAN Everolimus (External) 6.8 3 - 8 ng/mL LABDE SCAN 03/09/2014 8:40 AM DRY CLEANING MANAGER Narrative BOBBY PFT - 03/16/2014 3:47 PM DRY CLEANING MANAGER Verified by Guerrero Pinzon on 03/16/2014. us Patient Reported LABORATORY Edited Result - [...] the IP on-call for review. Meena Torres [facility] Infection Prevention 07/11/2019 at 3:56 PM [...] Out COVID-19 04/19/2020 04/19/2020 04/19/2020 1:56 PM DRY CLEANING MANAGER Rule Out COVID-19 04/19/2020 04/20/2020 04/20/2020 6:34 AM DRY CLEANING MANAGER Rule Out COVID-19 12/15/2020 12/15/2020 12/15/2020 4:33 PM CDT Rule Out C-difficile 01/06/2021 01/08/2021 021 11:43 AM DRY CLEANING MANAGER Rule Out C-difficile 07/10/2021 07/10/2021 022 5:56 PM CDT Rule Out C-difficile 07/16/2023 07/16/2023 024 9:21 PM CDT Rule Out Parvovirus 07/16/2023 07/16/2023 07/19/19 24 12:29 PM CDT Parvovirus 07/16/2023 07/16/2023 10/03/2024 4:22 PM CDT [id number] Comment:This patient was exposed to a person with a known CP-MANAGER CLIENT and has the potential for having acquired this pathogen of concern. The [place] Department of Health ([facility]) and CDC recommend that we screen this patient to prevent the spread of these organisms within our healthcare facility. Infection Prevention has placed orders for collecting a rectal swab for CP-MANAGER CLIENT to evaluate if this patient is now a carrier. This patient was identified to have a low risk exposure in which case Contact Precautions are not necessary unless the patient tests positive. Screening is voluntary. Please notify Infection Prevention if the patient declines testing. Additional information and resources can be found on the Infection Prevention [employer] Sharepoint page. 08/04/2023 08/04/2023 02/02/2024 11:39 PM DRY CLEANING MANAGER Rule Out Parvovirus 09/28/2023 09/28/2023 10/05/19 11:41 PM CDT documented as of this encounter Care Teams Cosmetics Machine Operator Relationship Specialty Start Date End Date Robert Marley MD [address] [address] PCP - General Family Practice 12/08/10 Berna Kruse MD [facility] [address] [place] [address] Nephrology 07/15/12 05/25/14 Roxanna Armas, RN Registered Nurse Transplant 07/15/12 05/25/14 Irish Kim RN Registered Nurse Transplant 05/26/14 09/20/14 Chana Cheng MD [facility] [address] [place] [address] Nephrology 05/26/14 11/12/15 Anoop Garcia MD [facility] [address] [place] [address] Transplant 05/26/14 02/02/18 Barbara Carlson MD [address] [place] [address] Referring Physician Nephrology 08/30/14 11/12/15 Tayo Lacey MD [address] [place] [phone] Cardiology 08/30/14 Basil Plummer MD [address] [place] [address] Neurology 05/09/15 04/23/16 Charleen Lynne MD [address] [place] [address] MD Oncology 06/14/15 12/19/18 Olimpia Williamson RN Nurse Coordinator Oncology 06/14/15 04/23/16 Rin Dewitt RN Nurse Coordinator Neurology 07/24/15 04/23/16 Rin Dewitt RN Nurse Coordinator Neurology 10/25/15 10/12/17 Qian Rodriguez MD 717 [facility] 353 [place] [address] Nephrology 11/13/15 06/16/16 Sherri Kingston PA 420 [facility] 394 [place], [place] [address] Physician Sewer Separation Designer Physician Sewer Separation Designer 03/20/16 Olimpia Williamson, RN Nurse Coordinator Oncology 06/26/16 06/26/16 Olimpia Williamson, RN Nurse Coordinator Oncology 06/26/16 06/16/18 Christopher Quiroga MD [facility] [address] [place], [place] [address] Oncology 07/02/16 Claudia Yousif RN Nurse Coordinator Gastroenterology 02/09/17 09/16/22 Lance Simpson PA-C [address] [place] [address] Physician Sewer Separation Designer Physician Sewer Separation Designer 01/07/18 Olimpia Williamson, RN Specialty Ambulatory Nurse Hematology & Oncology 05/06/18 12/19/18 Sherri Kingston PA [address] [place] [address] Urology [place], [place] [address] Physician Sewer Separation Designer Physician Sewer Separation Designer 12/21/18 Delvin Bob MD [address] [place] [address] 250 [place], [place] [address] Internal Medicine 11/11/19 Charleen Lynne MD [address] [place] [address] [id number] Assigned Cancer Care Provider 12/23/19 03/23/21 Shakira Chapa MD INACTIVE IN [place] OF 06/29/2020 Assigned Surgical Provider 12/23/19 07/14/20 Zoltan Eric DPM [address] [facility] [address] [place], [place] [address] Assigned Musculoskeletal Provider 12/23/19 07/26/21 Delvin Bob MD [address] [place] [address] 250 [place] [address] Assigned PCP 12/08/19 02/14/22 Maximo Mathis DO 909 [place] [address] Assigned Neuroscience Provider 02/12/20 08/09/21 Sherri Kingston PA 909 [facility] [address] Assigned Surgical Provider 07/15/20 10/06/20 Pedro Winchester MD 6405 [place] [address] Assigned Heart and Vascular Provider 08/05/20 01/31/22 Shakira Chapa MD INACTIVE IN [place] OF 06/29/2020 Assigned Surgical Provider 10/07/20 10/13/20 Jovanni Dempsey MD 600 [place], [place] [address] Assigned Nephrology Provider 03/24/21 03/14/22 Jovanni Dempsey MD [address] [place], [place] 3939[address] Assigned Nephrology Provider 03/15/22 03/21/22 Len Hooks MD 717 [facility] 353 [place] [address] Assigned Nephrology Provider 03/22/22 12/26/22 Delvin Bob MD [address] [place] [address] 250 [place], [place] [address] Assigned PCP 04/26/22 12/12/22 Love Hernandez PA-C 6363 [facility] 500 [place] [address] Physician Sewer Separation Designer Urology 12/01/22 Conrado Evans MD [address] [place] [address] Assigned Nephrology Provider 12/27/22 06/21/24 Love Hernandez PA-C 6363 [facility] 500 [place], [place] [address] Assigned Surgical Provider 01/17/23 [place] [address] [address] [place], [place] [address] Assigned Gastroenterology Provider 07/23/23 Everardo Grant MD [address] [place] [address] [id number] Physician Infectious Diseases 09/23/23 Rey Billings MD [address] [place] [address] 605725 Assigned Infectious Disease Provider 10/23/23 Conrado Evans MD [address] [place] [address] Nephrology 08/25/24 Delvin Lopez MD 9 [place], [place] [address] Nephrology 08/25/24 Carissa Putnam RN [facility] [address] [place], [place] [id number] Specialty Ambulatory Nurse Pharmacy 10/10/24 10/10/24 documented as of this encounter
--- OUTSIDE RECORDS SUMMARY | 2024-10-13 09:01 | XMS_ITS | Encounter Summary ---
Author Organization [facility] Address [address] [place] [address] Care Team Providers Care Bag Patcher Name Role Phone Robert Marley MD Primary Care Provider [phone] Berna Kruse MD Unavailable [phone] Roxanna Armas RN Unavailable [phone] Irish Kim RN Unavailable [phone] Chana Cheng MD Unavailable [phone] Anoop Garcia MD Unavailable Unavailable Barbara Carlson MD Unavailable Tayo Lacey MD Unavailable [phone] TuBasil shaikh MD Unavailable MagedCharleen MD Unavailable [phone] Olimpia Williamson RN Unavailable [phone] Rin Dewitt RN Unavailable [phone] Rin Dewitt RN Unavailable [phone] Qian Rodriguez MD Unavailable [phone] Sherri Kingston Unavailable [phone] Olimpia Williamson RN Unavailable [phone] Olimpia Williamson RN Unavailable [phone] Christopher Quiroga MD Unavailable Claudia Yousif RN Unavailable Lance Simpson PA-C Unavailable Olimpia Williamson RN Unavailable [phone] Sherri Kingston PA Unavailable Delvin Bob MD Unavailable +[phone] Charleen Lynne MD Unavailable +[phone] ChapaShakira tellez MD Unavailable Unav ailable Hernesto Zoltan ADRIANM Unavailable +[phone] Lisbeth, Delvin England MD Unavailable Maximo Mathis DO Unavailable + Sherri Kingston Unavailable Pedro Winchester MD Unavailable [phone] ChapaShakira zelaya MD Unavailable Unav ailable Jovanni Dempsey MD Unavailable +[phone] Jovanni Dempsey MD Unavailable Len Hooks MD Unavailable Delvin Bob MD Unavailable [phone] Love Hernandez-C Unavailable [phone] Conrado Evans MD Unavailable +[phone] Love Hernandez PA-C Unavailable [phone] Gordy Nickerson MD Unavailable Everardo Grant MD Unavailable Rey Billings MD Unavailable [phone] Conrado Evans MD Unavailable Delvin Lopez MD Unavailable [phone] Carissa Putnam RN Unavailable [phone] Encounter Details Date Type Department Care Team (Late Contact Info) Description 03/08/2014 External Order Results [facility] 2[facility], Clinic [address] [address] [facility] [place] [address] [place] [phone] Social History Tobacco Use Types Packs/Day Years Used Date Smoking Tobacco: Former Smokeless Tobacco: Never Alcohol Use Standard Drinks/Week Comments No 0 (1 standard drink = 0.6 oz pur e alcohol) Comments No Sex and Gender Information Value Date Recorded Sex Assigned at Not on file Legal Sex Female 3:26 AM ENGRAVING PLATE MAKER Gender Identity Not on file Sexual Orientation Not on file Occupation Industry Job Start Date Job End Date Not on file Not on file Not on file Not on file documented as of this encounter Plan of Treatment Upcoming Encounters Date Type Department Care Team (Late Contact Info) Description 10/25/2024 10:00 AM CDT [facility] [address] [place] [address] Edith Brtio 10/26/2024 8:30 AM CDT Lab [facility] [address] [facility] 200 [place] [phone] Conrado Evans MD [address] [place] [address] 353 [facility] 1932 [place] [address] documented as of this encounter Procedures Procedure Name Priority Date/Time Associated Diagnosis Comments EXTERNAL LAB RESULTS Routine 03/06/2014 8:35 AM ENGRAVING PLATE MAKER documented in this encounter Results * (ABNORMAL) TXP External Lab Result (03/06/2014 8:35 AM ENGRAVING PLATE MAKER) Calcium (External) 9.2 8.4 - 10.6 MG/DL LABDE SCAN Urea Nitrogen (External) 15 5 - 24 MG/DL LABDE SCAN Creatinine (External) 0.7 0.5 - 1.5 mg/dL LABDE SCAN Glucose (External) 68 60 - 115 mg/dL LABDE SCAN Sodium (External) 145 135 - 149 MMOL/L LABDE SCAN Potassium (External) 4.5 3.6 - 5.1 MMOL/L LABDE SCAN Chloride (External) 103 96 - 114 MMOL/L LABDE SCAN CO2 (External) 26 20 - 32 mmol/L LABDE SCAN Amylase (External) 47 18 - 89 U/L LABDE SCAN Phosphorus (External) 3.2 2.5 - 4.5 mg/dL LABDE SCAN Magnesium (External) 1.4(L) 1.5 - 2.6 MG/DL LABDE SCAN Lipase Level (External) 140 23 - 300 U/L LABDE SCAN WBC Count (External) 2.12(L) 5.00 - 10.00 K/UL LABDE SCAN Hemoglobin (External) 10.9(L) 12.0 - 15.5 g/dL LABDE SCAN Hematocrit (External) 36.6 34.9 - 44.5 % LABDE SCAN Platelet Count (External) 244 150 - 450 K/UL LABDE SCAN % Neutrophils (External) 71.2(H) 50.0 - 70.0 % LABDE SCAN % Lymphocytes (External) 13.7(L) 25.0 - 45.0 % LABDE SCAN Absolute Neutrophils (External) 1.51(L) 1.7 - 7.0 K/UL LABDE SCAN Absolute Lymphocytes (External) 0.29(L) 0.90 - 2.90 K/UL LABDE SCAN % Immature Granulocytes (External) 0.5 % LABDE SCAN Absolute Immature Granulocytes (External) 0.01 K/UL LABDE SCAN Mycophenolic Acid (External) <0.5(L) 1.0 - 3.5 ug/mL LABDE SCAN MPA Glucuronide (External) <5.0(L) 35 - 100 ug/Ml LABDE SCAN Everolimus (External) 4.5 ng/ml LABDE SCAN 03/06/2014 8:35 AM ENGRAVING PLATE MAKER Narrative BOBBY PFT - 03/09/2014 12:39 PM ENGRAVING PLATE MAKER Verified by Guerrero Pinzon on 03/08/2014. Verified by Pao Oswald on 03/09/2014. Verified by Pao Oswald on 03/09/2014. us Patient Reported LABORATORY Edited Result - [...] on-call for review. 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 12/26/2019 12/26/2019 Rule Out COVID-19 04/19/2020 04/19/2020 04/19/2020 1:56 PM ENGRAVING PLATE MAKER Rule Out COVID-19 04/19/2020 04/20/2020 04/20/2020 6:34 AM ENGRAVING PLATE MAKER Rule Out COVID-19 12/15/2020 12/15/2020 12/15/2020 4:33 PM CDT Rule Out C-difficile 01/06/2021 01/08/2021 021 11:43 AM ENGRAVING PLATE MAKER Rule Out C-difficile 07/10/2021 07/10/2021 022 5:56 PM CDT Rule Out C-difficile 07/16/2023 07/16/2023 024 9:21 PM CDT Rule Out Parvovirus 07/16/2023 07/16/2023 07/19/19 24 12:29 PM CDT Parvovirus 07/16/2023 07/16/2023 10/03/2024 4:22 PM CDT [id number] Comment:This patient was exposed to a person with a known CP-PARTS EXPEDITER and has the potential for having acquired this pathogen of concern. The [facility] ([facility]) and CDC recommend that we screen this patient to prevent the spread of these organisms within our healthcare facility. Infection Prevention has placed orders for collecting a rectal swab for CP-PARTS EXPEDITER to evaluate if this patient is now a carrier. This patient was identified to have a low risk exposure in which case Contact Precautions are not necessary unless the patient tests positive. Screening is voluntary. Please notify Infection Prevention if the patient declines testing. Additional information and resources can be found on the Infection Prevention MDRO Sharepoint page. 08/04/2023 08/04/2023 02/02/2024 11:39 PM ENGRAVING PLATE MAKER Rule Out Parvovirus 09/28/2023 09/28/2023 10/05/19 24 11:41 PM CDT documented as of this encounter Care Teams Bag Patcher Relationship Specialty Start Date End Date Robert Marley MD [facility] [id number] [place] [address] PCP - General Family Practice 12/08/10 Berna Kruse MD [facility] [address] [place] [address] Nephrology 07/15/12 05/25/14 Roxanna Armas, RN Registered Nurse Transplant 07/15/12 05/25/14 Irish Kim RN Registered Nurse Transplant 05/26/14 09/20/[address] [facility] [address] [place] [address] Nephrology 05/26/14 11/12/[address] [facility] [address] [place] [address] Transplant 05/26/14 02/02/18 Barbara Carlson MD [address] [place] [phone] Referring Physician Nephrology 08/30/14 11/12/15 Tayo Lacey MD [address] [place] [phone] Cardiology 08/30/14 Basil Plummer MD [address] [place] [address] Neurology 05/09/15 04/23/16 Charleen Lynne MD [address] [place] [address]855 MD Oncology 06/14/15 12/19/18 Olimpia Williamson, SONIA Nurse Coordinator Oncology 06/14/15 04/23/16 Rin Dewitt RN Nurse Coordinator Neurology 07/24/15 04/23/16 Rin Dewitt RN Nurse Coordinator Neurology 10/25/15 10/12/17 Qian Rodriguez MD 717 [facility] 353 [place] [address] Nephrology 11/13/15 06/16/16 Sherri Kingston PA 420 [facility] 394 [place], [place] [address] Physician Plastic Top Assembler Physician Plastic Top Assembler 03/20/16 Olimpia Williamson, RN Nurse Coordinator Oncology 06/26/16 06/26/16 Olimpia Williamson, RN Nurse Coordinator Oncology 06/26/16 06/16/18 Christopher Quiroga MD [facility] 5 [facility] 200 [place] [address] Oncology 07/02/16 Claudia Yousif RN Nurse Coordinator Gastroenterology 02/09/17 09/16/22 Lance Simpson PA-C 909 [place], [place] [address] Physician Plastic Top Assembler Physician Plastic Top Assembler 01/07/18 Olimpia Williamson, RN Specialty Complaint Supervisor Hematology & Oncology 05/06/18 12/19/18 Sherri Kingston PA 909 [facility] Urology [place], [place] [address] Physician Plastic Top Assembler Physician Plastic Top Assembler 12/21/18 Delvin Bob MD 420 [facility] 250 [place] [address] Internal Medicine 11/11/19 Charleen Lynne MD 909 [place] [address] Assigned Cancer Care Provider 12/23/19 03/23/21 Shakira Chapa MD INACTIVE IN [place] OF 06/29/2020 Assigned Surgical Provider 12/23/19 07/14/20 Zoltan Eric DPM [address] [place] [facility] [address] [place] [address] Assigned Musculoskeletal Provider 12/23/19 07/26/21 Delvin Bob MD 420 [facility] 250 [place] [address] Assigned PCP 12/08/19 02/14/22 Maximo Mathis DO 9 [place] [address] Assigned Neuroscience Provider 02/12/20 08/09/21 Sherri Kingston PA [address] [place] [address] [place] [address] Assigned Surgical Provider 07/15/20 10/06/20 Pedro Winchester MD [address] [place] [address] Assigned Heart and Vascular Provider 08/05/20 01/31/22 Shakira Chapa MD INACTIVE IN [place] OF 06/29/2020 Assigned Surgical Provider 10/07/20 10/13/20 Jovanni Dempsey MD 600 [place], [place] 563762 Assigned Nephrology Provider 03/24/21 03/14/22 Jovanni Dempsey MD 600 [place], [place] 644802 Assigned Nephrology Provider 03/15/22 03/21/22 Len Hooks MD [address] [place] [address] [place], [place] [address]464 Assigned Nephrology Provider 03/22/22 12/26/22 Delvin Bob MD [facility] 250 [place], [place] [address] Assigned PCP 04/26/22 12/12/22 Love Hernandez PA-C [address] [place] [address] [place], [place] [address] Physician Plastic Top Assembler Urology 12/01/22 Conrado Evans MD [address] [place] 353 [facility] 1932 [place], [place] 512144 Assigned Nephrology Provider 12/27/22 06/21/24 Love Hernandez PA-C [address] [place] [address] [place], [place] [address]45[address] Assigned Surgical Provider 01/17/23 [place] [address] [place] [address], [place] [address] Assigned Gastroenterology Provider 07/23/23 Everardo Grant MD [address] [place] [address] Physician Infectious Diseases 09/23/23 Rey Billings MD [address] [place] [address] Assigned Infectious Disease Provider 10/23/23 Conrado Evans MD [address] [place] [address] 353 [facility] [address] [place] [address] Nephrology 08/25/24 Delvin Lopez MD [address] [place] [address] Nephrology 08/25/24 Carissa Putnam RN [facility] 711 [place] [address] Specialty Complaint Supervisor Pharmacy 10/10/24 10/10/24 documented as of this encounter
--- OUTSIDE RECORDS SUMMARY | 2024-10-13 09:01 | XMS_ITS | Encounter Summary ---
Author Organization [facility] Address [address] [place] [address] Care Team Providers Care Facilities Clerk Name Role Phone Robert Marley MD Primary Care Provider [phone] Tayo Lacey MD Unavailable [phone] Christopher Quiroga MD Unavailable Claudia Yousif RN Unavailable Lance SimpsonC Unavailable [phone] Sherri Kingston Unavailable [phone] Delvin Bob MD Unavailable [phone] Charleen Lynne MD Unavailable [phone] Shakira Chapa MD Unavailable Unav ailable Zoltan Eric DPM Unavailable +[phone] Delvin Bob MD Unavailable [phone] Maximo Mathis DO Unavailable + Sherri Kingston Unavailable [phone] Pedro Winchester MD Unavailable [phone] Shakira Chapa MD Unavailable Unav ailable Jovanni Dempsey MD Unavailable +[phone] Jovanni Dempsey MD Unavailable +[phone] Len Hooks MD Unavailable Delvin Bob MD Unavailable Love Hernandez PA-C Unavailable [phone] Conrado Evans MD Unavailable +[phone] Love Hernandez PA-C Unavailable [phone] Gordy Nickerson MD Unavailable +[phone] Everardo Grant MD Unavailable Rey Billings MD Unavailable +[phone] Conrado Evans MD Unavailable [phone] Delvin Lopez MD Unavailable [phone] Carissa Putnam RN Unavailable [phone] Encounter Details Date Type Department Care Team (Late Contact Info) Description 03/14/2020 MyC Medical Advice [facility] 9 [place] [address] Monica Mehta, SONIA Social History Tobacco Use Types Packs/Day Years Used Date Smoking Tobacco: Former Smokeless Tobacco: Never Alcohol Use Standard Drinks/Week Comments No 0 (1 standard drink = 0.6 oz pur e alcohol) PHQ-2 Answer Date Recorded PHQ-2 Score 2 04/05/2019 Comments No Sex and Gender Information Value Date Recorded Sex Assigned at Not on file Legal Sex Female 3:26 AM DIRECTOR DIGITAL SALES Gender Identity Not on file Sexual Orientation Not on file Occupation Industry Job Start Date Job End Date Not on file Not on file Not on file Not on file COVID-19 Exposure Response Date Recorded In the last month, have you been in contact with someone who was confirmed or suspected to have Coronavirus / COVID-19? No / Unsure 02/22/2020 9:16 AM DIRECTOR DIGITAL SALES documented as of this encounter Plan of Treatment Upcoming Encounters Date Type Department Care Team (Late Contact Info) Description 10/25/2024 10:00 AM CDT Virtual Visit [facility] [address] [place] [address] Edith Brito 10/26/2024 8:30 AM CDT [facility] Medical Ctr [facility] [address] [place] [place] [address] Conrado Evans MD 717 [facility] 353 [facility] 1932 [place] [address] documented as of this encounter Visit Diagnoses Not on filedocumented in this encounter Additional Health Concerns 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, 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 Rule Out COVID-19 04/19/2020 04/19/2020 04/19/2020 1:56 PM DIRECTOR DIGITAL SALES Rule Out COVID-19 04/19/2020 04/20/2020 04/20/2020 6:34 AM DIRECTOR DIGITAL SALES Rule Out COVID-19 12/15/2020 12/15/2020 12/15/2020 4:33 PM CDT Rule Out C-difficile 01/06/2021 01/08/2021 021 11:43 AM DIRECTOR DIGITAL SALES Rule Out C-difficile 07/10/2021 07/10/2021 022 5:56 PM CDT Rule Out C-difficile 07/16/2023 07/16/2023 024 9:21 PM CDT Rule Out Parvovirus 07/16/2023 07/16/2023 07/19/19 24 12:29 PM CDT Parvovirus 07/16/2023 07/16/2023 10/03/2024 4:22 PM CDT [id number] Comment:This patient was exposed to a person with a known CP-COLLECTION SYSTEMS TECHNICIAN and has the potential for having acquired this pathogen of concern. The [place] [facility] ([facility]) and CDC recommend that we screen this patient to prevent the spread of these organisms within our healthcare facility. Infection Prevention has placed orders for collecting a rectal swab for CP-COLLECTION SYSTEMS TECHNICIAN to evaluate if this patient is [...] page. 08/04/2023 08/04/2023 02/02/2024 11:39 PM DIRECTOR DIGITAL SALES Rule Out Parvovirus 09/28/2023 09/28/2023 10/05/19 24 11:41 PM CDT Assessment Noted Time PHQ-9 Depression Total Score: 11 020 2:07 PM DIRECTOR DIGITAL SALES documented as of this encounter Care Teams Facilities Clerk Relationship Specialty Start Date End Date Robert Marley MD [facility] [address] [place] [address] PCP - General Family Practice 12/08/10 Tayo Lacey MD [facility] [address] [place] [address] Cardiology 08/30/14 Christopher Quiroga MD [facility] [address] [facility] 200 [place] [address] Oncology 07/02/16 Claudia Yousif, SONIA Nurse Coordinator Gastroenterology 02/09/17 09/16/22 Lance Simpson PA-C [address] [place] [address] 931395 Physician Dividing Machine Operator Physician Dividing Machine Operator 01/07/18 Sherri Kingston PA [address] [place] [address] [place] [address] Physician Dividing Machine Operator Physician Dividing Machine Operator 12/21/18 Delvin Bob MD [address] [place] [address] 250 [place], [place] 335095 Internal Medicine 11/11/19 Charleen Lynne MD 909 [place] [address] Assigned Cancer Care Provider 12/23/19 03/23/21 Shakira Chapa MD [place]CTIVE IN [place] OF 06/29/2020 Assigned Surgical Provider 12/23/19 Zoltan Eric DPM [address] [facility] [address] [place] [address] Assigned Musculoskeletal Provider 12/23/19 07/26/21 Delvin Bob MD [address] [place] [address] 250 [place] [address] Assigned PCP 12/08/19 02/14/22 Maximo Mathis DO 909 [place], [place] 250[address] Assigned Neuroscience Provider 02/12/20 08/09/21 Sherri Kingston PA 909 [facility] Urology [place], [place] [address] Assigned Surgical Provider 07/15/2010/06/20 Pedro Winchester MD [address] [place] [place] [address] Assigned Heart and Vascular Provider 08/05/20 01/31/22 Shakira Chapa MD INACTIVE IN [place] OF 06/29/2020 Assigned Surgical Provider 10/07/20 Jovanni Dempsey MD 600 [place], [place] [address]32 Assigned Nephrology Provider 03/24/21 03/14/22 Jovanni Dempsey MD 600 [place] [address] Assigned Nephrology Provider 03/15/22 03/21/22 Len Hooks MD [address] [place] [address] [place], [place] [address] Assigned Nephrology Provider 03/22/22 12/26/22 Delvin Bob MD [address] [facility] 250 [place], [place] 3[address] Assigned PCP 04/26/22 12/12/22 Love Hernandez PA-C [address] [place] [address] [place], [place] [address] Physician Dividing Machine Operator Urology 12/01/22 Conrado Evans MD [address] [place] [address] [facility] [address] [place] [address] Assigned Nephrology Provider 12/27/22 06/21/24 Love Hernandez PA-C [address] [place] [address] [place], [place] 2[address] Assigned Surgical Provider 01/17/23 [place] [address] [facility] [place] [place] [address] Assigned Gastroenterology Provider 07/23/23 Everardo Grant MD 9 [place], [place] [address] Physician Infectious Diseases 09/23/23 Rey Billings MD [address] [place] [address] 266825 Assigned Infectious Disease Provider 10/23/23 Conrado Evans MD [address] [place] [address] 353 [facility] [address] [place] [address] Nephrology 08/25/24 Delvin Lopez MD [address] [place] [address] [id number] Nephrology 08/25/24 Carissa Putnam, RN [facility] 7[address] [place], [place] [id number] Specialty Clinical Pharmacy Manager Pharmacy 10/10/24 documented as of this encounter
--- OUTSIDE RECORDS SUMMARY | 2024-10-13 09:01 | XMS_ITS | Encounter Summary ---
Author Organization [place] Address [address] [place] [address] Care Team Providers Care Cane Cutter Name Role Phone Robert Marley MD Primary Care Provider [phone] Berna Kruse MD Unavailable +[phone] Roxanna Armas RN Unavailable +[phone] Irish Kim RN Unavailable +[phone] Chana Cheng MD Unavailable [phone] Anoop Garcia MD Unavailable Unavailable Barbara Carlson MD Unavailable Tayo Lacey MD Unavailable [phone] TuBasil shaikh MD Unavailable MagedCharleen MD Unavailable [phone] Olimpia Williamson RN Unavailable [phone] Rin Dewitt RN Unavailable [phone] Rin Dewitt RN Unavailable [phone] Qian Rodriguez MD Unavailable [phone] Sherri Kingston Unavailable +[phone] Olimpia Williamson RN Unavailable [phone] Olimpia Williamson RN Unavailable [phone] Christopher Quiroga MD Unavailable Claudia Yousif RN Unavailable Lance Simpson PA-C Unavailable Olimpia Williamson RN Unavailable [phone] Sherri Kingston PA Unavailable Delvin Bob MD Unavailable +[phone] Charleen Lynne MD Unavailable +[phone] ChapaShakira tellez MD Unavailable Unav ailable Hernesto Zoltan ADRIANM Unavailable +[phone] Lisbeth, Delvin England MD Unavailable Maximo Mathis DO Unavailable + Sherri Kingston Unavailable Pedro Winchester MD Unavailable +[phone] ChapaShakira zelaya MD Unavailable Unav ailable Jovanni Dempsey MD Unavailable Jovanni Dempsey MD Unavailable +[phone] Len Hooks MD Unavailable Delvin Bob MD Unavailable +[phone] Love Hernandez-C Unavailable [phone] Conrado Evans MD Unavailable +[phone] Love Hernandez PA-C Unavailable [phone] Gordy Nickerson MD Unavailable [phone] Everardo Grant MD Unavailable Rey Billings MD Unavailable [phone] Conrado Evans MD Unavailable +[phone] Delvni Lopez MD Unavailable [phone] Carissa Putnam RN Unavailable [phone] Encounter Details Date Type Department Care Team (Late Contact Info) Description 02/21/2014 External Order Results [facility] 2[facility], Clinic [facility] [address] [facility] [address] [place] [phone] Social History Tobacco Use Types Packs/Day Years Used Date Smoking Tobacco: Former Smokeless Tobacco: Never Alcohol Use Standard Drinks/Week Comments No 0 (1 standard drink = 0.6 oz pur e alcohol) Comments No Sex and Gender Information Value Date Recorded Sex Assigned at Not on file Legal Sex Female 3:26 AM CONTINGENTS SUPERVISOR Gender Identity Not on file Sexual Orientation Not on file Occupation Industry Job Start Date Job End Date Not on file Not on file Not on file Not on file documented as of this encounter Plan of Treatment Upcoming Encounters Date Type Department Care Team (Late Contact Info) Description 10/25/2024 10:00 AM CDT Virtual Visit [facility] [address] [place] [address] Edith Brito 10/26/2024 8:30 AM CDT Lab [facility] [address] [facility] 200 [place] [phone] Conrado Evans MD [address] [place] [address] 353 [facility] [address] [place] [address] documented as of this encounter Procedures Procedure Name Priority Date/Time Associated Diagnosis Comments EXTERNAL LAB RESULTS Routine 02/21/2014 9:00 AM CONTINGENTS SUPERVISOR documented in this encounter Results * (ABNORMAL) TXP External Lab Result (02/21/2014 9:00 AM CONTINGENTS SUPERVISOR) WBC Count (External) 3.30(L) 5.00 - 10.00 K/UL LABDE SCAN RBC Count (External) 3.61(L) 3.90 - 5.03 LABDE SCAN Hemoglobin (External) 10.3(L) 12.0 - 15.5 GM/DL LABDE SCAN Hematocrit (External) 34.0(L) 34.9 - 44.5 % LABDE SCAN MCV (External) 94 82 - 98 FL LABDE SCAN MCH (External) 29 27 - 34 PG LABDE SCAN MCHC (External) 30(L) 32 - 36 GM/DL LABDE SCAN Platelet Count (External) 236 150 - 450 K/UL LABDE SCAN % Neutrophils (External) 79.1(H) 50.0 - 70.0 % LABDE SCAN % Lymphocytes (External) 8.2(L) 25.0 - 45.0 % LABDE SCAN % Basophils (External) 0.9 0.0 - 3.0 % LABDE SCAN Absolute Neutrophils (External) 2.61 1.70 - 7.00 K/uL LABDE SCAN Absolute Lymphocytes (External) 0.27(L) 0.90 - 2.90 K/UL LABDE SCAN Absolute Monocytes (External) 0.29(L) 0.30 - 0.90 K/UL LABDE SCAN Absolute Basophils (External) 0.03 0.00 - 0.20 K/UL LABDE SCAN % Immature Granulocytes (External) 0.0 % LABDE SCAN Absolute Immature Granulocytes (External) 0.00 K/UL LABDE SCAN Calcium (External) 8.8 8.4 - 10.6 mg/dL LABDE SCAN Glucose (External) 83 60 - 115 mg/dL LABDE SCAN Sodium (External) 140 135 - 149 mmol/L LABDE SCAN Potassium (External) 4.3 3.6 - 5.1 mmol/L LABDE SCAN Chloride (External) 104 96 - 114 mmol/L LABDE SCAN CO2 (External) 23 20 - 32 mmol/L LABDE SCAN Amylase (External) 113(H) 18 - 89 U/L LABDE SCAN Lipase Level (External) 237 23 - 300 U/L LABDE SCAN 02/21/2014 9:00 AM CONTINGENTS SUPERVISOR Narrative BOBBY PFT - 02/28/2014 1:18 PM CONTINGENTS SUPERVISOR Verified by Tayla Dodson on 02/21/2014. Verified by Guerrero Pinzon on 02/28/2014. us Patient Reported LABORATORY Edited Result - [...] the IP on-call for review. Meena Torres [facility] Infection Prevention 07/11/2019 at [...] Out COVID-19 04/19/2020 04/19/2020 04/19/2020 1:56 PM CONTINGENTS SUPERVISOR Rule Out COVID-19 04/19/2020 04/20/2020 04/20/2020 6:34 AM CONTINGENTS SUPERVISOR Rule Out COVID-19 12/15/2020 12/15/2020 12/15/2020 4:33 PM CDT Rule Out C-difficile 01/06/2021 01/08/2021 021 11:43 AM CONTINGENTS SUPERVISOR Rule Out C-difficile 07/10/2021 07/10/2021 022 5:56 PM CDT Rule Out C-difficile 07/16/2023 07/16/2023 024 9:21 PM CDT Rule Out Parvovirus 07/16/2023 07/16/2023 07/19/19 24 12:29 PM CDT Parvovirus 07/16/2023 07/16/2023 10/03/2024 4:22 PM CDT [id number] Comment:This patient was exposed to a person with a known CP-ORNAMENTAL IRON WORKER APPRENTICE and has the potential for having acquired this pathogen of concern. The [place] Department of Health ([facility]) and CDC recommend that we screen this patient to prevent the spread of these organisms within our healthcare facility. Infection Prevention has placed orders for collecting a rectal swab for CP-ORNAMENTAL IRON WORKER APPRENTICE to evaluate if this patient is now a carrier. This patient was identified to have a low risk exposure in which case Contact Precautions are not necessary unless the patient tests positive. Screening is voluntary. Please notify Infection Prevention if the patient declines testing. Additional information and resources can be found on the Infection Prevention MDRO Sharepoint page. 08/04/2023 08/04/2023 02/02/2024 11:39 PM CONTINGENTS SUPERVISOR Rule Out Parvovirus 09/28/2023 09/28/2023 10/05/19 24 11:41 PM CDT documented as of this encounter Care Teams Cane Cutter Relationship Specialty Start Date End Date Robert Marley MD [address] [address] PCP - General Family Practice 12/08/10 Berna Kruse MD [facility] [address] [place] [address] Nephrology 07/15/12 05/25/14 Roxanna Armas, RN Registered Nurse Transplant 07/15/12 05/25/14 Irish Kim RN Registered Nurse Transplant 05/26/14 09/20/14 Chana Cheng MD [facility] [address] [place] [address] Nephrology 05/26/14 11/12/15 Anoop Garcia MD [facility] [address] [place] [address] MD Transplant 05/26/14 02/02/18 Barbara Carlson MD [address] [place] [phone] Referring Physician Nephrology 08/30/14 11/12/15 Tayo Lacey MD [address] [place] [phone] Cardiology 08/30/14 Basil Plummer MD [address] [place] [address] 089785 Neurology 05/09/15 04/23/16 Charleen Lynne MD [address] [place] [address] MD Oncology 06/14/15 12/19/18 Olimpia Williamson RN Nurse Coordinator Oncology 06/14/15 04/23/16 Rin Dewitt RN Nurse Coordinator Neurology 07/24/15 04/23/16 Rin Dewitt RN Nurse Coordinator Neurology 10/25/15 10/12/17 Qian Rodriguez MD 717 [facility] [place] [place], [place] 071764 Nephrology 11/13/15 06/16/16 Sherri Kingston PA 420 [facility] 394 [place], [place] 647345 Physician Superintendent Radio Communications Physician Superintendent Radio Communications 03/20/16 Olimpia Williamson, RN Nurse Coordinator Oncology 06/26/16 06/26/16 Olimpia Williamson, RN Nurse Coordinator Oncology 06/26/16 06/16/18 Christopher Quiroga MD [facility] [address] [facility] 200 [place], [place] [phone] Oncology 07/02/16 Claudia Yousif, RN Nurse Coordinator Gastroenterology 02/09/17 09/16/22 Lance Simpson PA-C 909 [place], [place] 450645 Physician Superintendent Radio Communications Physician Superintendent Radio Communications 01/07/18 Olimpia Williamson, RN Specialty Building Maintenance Supervisor Hematology & Oncology 05/06/18 12/19/18 Sherri Kingston PA 909 [facility] Urology [place], [place] [phone] Physician Superintendent Radio Communications Physician Superintendent Radio Communications 12/21/18 Delvin Bob MD 420 [facility] 250 [place], [place] 190125 Internal Medicine 11/11/19 Charleen Lynne MD 909 [employer], [place] 602515 Assigned Cancer Care Provider 12/23/19 03/23/21 Shakira Chapa MD [facility] [place] [facility] 06/29/2020 Assigned Surgical Provider 12/23/19 07/14/20 Zoltan Eric DPM [address] [facility] [address] [place] [address] Assigned Musculoskeletal Provider 12/23/19 07/26/21 Delvin Bob MD [address] [place] [address] 250 [place], [place] 489885 Assigned PCP 12/08/19 02/14/22 Maximo Mathis DO 9 [place], [place] 971665 Assigned Neuroscience Provider 02/12/20 08/09/21 Sherri Kingston PA 9 [facility] U[facility] [place], [place] 351435 Assigned Surgical Provider 07/15/20 10/06/20 Pedro Winchester MD [address] [place] [address]65 Assigned Heart and Vascular Provider 08/05/20 01/31/22 Shakira Chapa MD [facility] [place] [facility] 06/29/2020 Assigned Surgical Provider 10/07/20 10/13/20 Jovanni Dempsey MD 600 [place], [place] 123162 Assigned Nephrology Provider 03/24/21 03/14/22 Jovanni Dempsey MD 600 [place], [place] 383322 Assigned Nephrology Provider 03/15/22 03/21/22 Len Hooks MD [address] [facility] [address] [place] [address] [place], [place] 379804 Assigned Nephrology Provider 03/22/22 12/26/22 Delvin Bob MD 420 [facility] 250 [place], [place] 121805 Assigned PCP 04/26/22 12/12/22 Love Hernandez PA-C [address] [place] [place], [place] 5895[address] Physician Superintendent Radio Communications Urology 12/01/22 Conrado Evans MD [address] [place] 353 [facility] 1932 [place], [place] 718824 Assigned Nephrology Provider 12/27/22 06/21/24 Love Hernandez PA-C [address] [place] [address] [place], [place] 352755 Assigned Surgical Provider 01/17/23 [place] [address] [facility] 686719 Assigned Gastroenterology Provider 07/23/23 Everardo Grant MD 9 [place] [address] Physician Infectious Diseases 09/23/23 Rey Billings MD [address] [place] [address] 387335 Assigned Infectious Disease Provider 10/23/23 Conrado Evans MD [address] [place] [address] 353 [facility] [address] [place], [place] 381564 Nephrology 08/25/24 Delvin Lopez MD [address] [place] [address] 833365 Nephrology 08/25/24 Carissa Putnam RN [facility] 7[address] [place], [place] [phone] Specialty Building Maintenance Supervisor Pharmacy 10/10/24 10/10/24 documented as of this encounter
--- OUTSIDE RECORDS SUMMARY | 2024-10-13 09:01 | XMS_ITS | Encounter Summary ---
Author Organization [place] Address [address] [place] [address] Care Team Providers Care Grip Wrapper Name Role Phone Robert Marley MD Primary Care Provider [phone] Tayo Lacey MD Unavailable [phone] Christopher Quiroga MD Unavailable Claudia Yousif RN Unavailable Lance SimpsonC Unavailable [phone] Sherri Kingston Unavailable [phone] Delvin Bob MD Unavailable [phone] Charleen Lynne MD Unavailable [phone] Shakira Chapa MD Unavailable Unav ailable Zoltan Eric DPM Unavailable +[phone] Delvin Bob MD Unavailable [phone] Maximo Mathis DO Unavailable + Sherri Kingston Unavailable +[phone] Pedro Winchester MD Unavailable +[phone] Shakira Chapa MD Unavailable Unav ailable Jovanni Dempsey MD Unavailable +[phone] Jovanni Dempsey MD Unavailable [phone] Len Hooks MD Unavailable Delvin Bob MD Unavailable +[phone] Love Hernandez PA-C Unavailable [phone] Conrado Evans MD Unavailable +[phone] Love Hernandez PA-C Unavailable [phone] Gordy Nickerson MD Unavailable +[phone] Everardo Grant MD Unavailable Rey Billings MD Unavailable +[phone] Conrado Evans MD Unavailable +[phone] Delvin Lopez MD Unavailable [phone] Carissa Putnam RN Unavailable +[phone] Encounter Details Date Type Department Care Team (Late Contact Info) Description 03/13/2020 MyC Medical Advice [facility] 9 [place] [address] Diana Parsons, RN Social History [...] on file Legal Sex Female 3:26 AM TOOL DESIGNER APPRENTICE Gender Identity Not on file Sexual Orientation Not on file Occupation Industry Job Start Date Job End Date Not on file Not on file Not on file Not on file COVID-19 Exposure Response Date Recorded In the last month, have you been in contact with someone who was confirmed or suspected to have Coronavirus / COVID-19? No / Unsure 02/22/2020 9:16 AM TOOL DESIGNER APPRENTICE documented as of this encounter Plan of Treatment Upcoming Encounters Date Type Department Care Team (Late Contact Info) Description 10/25/2024 10:00 AM CDT Virtual Visit [facility] [address] [place] [address] Edith Brito 10/26/2024 8:30 AM CDT [facility] [address] [place] [place] [phone] Conrado Evans MD 717 [facility] 353 [facility] 1932 [place] [address] documented as of this encounter Visit Diagnoses Not on filedocumented in this encounter Additional Health Concerns 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, 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 Rule Out COVID-19 04/19/2020 04/19/2020 04/19/2020 1:56 PM TOOL DESIGNER APPRENTICE Rule Out COVID-19 04/19/2020 04/20/2020 04/20/2020 6:34 AM TOOL DESIGNER APPRENTICE Rule Out COVID-19 12/15/2020 12/15/2020 12/15/2020 4:33 PM CDT Rule Out C-difficile 01/06/2021 01/08/2021 021 11:43 AM TOOL DESIGNER APPRENTICE Rule Out C-difficile 07/10/2021 07/10/2021 022 5:56 PM CDT Rule Out C-difficile 07/16/2023 07/16/2023 024 9:21 PM CDT Rule Out Parvovirus 07/16/2023 07/16/2023 07/19/19 24 12:29 PM CDT Parvovirus 07/16/2023 07/16/2023 10/03/2024 4:22 PM CDT [id number] Comment:This patient was exposed to a person with a known CP-WAVE SOLDERING MACHINE OPERATOR and has the potential for having acquired this pathogen of concern. The [place] Department of Health ([facility]) and CDC recommend that we screen this patient to prevent the spread of these organisms within our healthcare facility. Infection Prevention has placed orders for collecting a rectal swab for CP-WAVE SOLDERING MACHINE OPERATOR to evaluate if this patient [...] Sharepoint page. 08/04/2023 08/04/2023 02/02/2024 11:39 PM TOOL DESIGNER APPRENTICE Rule Out Parvovirus 09/28/2023 09/28/2023 10/05/19 24 11:41 PM CDT Assessment Noted Time PHQ-9 Depression Total Score: 11 020 2:07 PM TOOL DESIGNER APPRENTICE documented as of this encounter Care Teams Grip Wrapper Relationship Specialty Start Date End Date Robert Marley MD [facility] [address] [place] [address] PCP - General Family Practice 12/08/10 Tayo Lacey MD [facility] [address] [place] [address] Cardiology 08/30/14 Christopher Quiroga MD [place] [facility] [address] [facility] 200 [place] [address] Oncology 07/02/16 Claudia Yousif, SONIA Nurse Coordinator Gastroenterology 02/09/17 09/16/22 Lance Simpson PA-C [address] [place] [address] 694835 Physician Hooking Machine Operator Physician Hooking Machine Operator 01/07/18 Sherri Kingston PA [address] [place] [address] Urology [place], [place] 305615 Physician Hooking Machine Operator Physician Hooking Machine Operator 12/21/18 Delvin Bob MD [address] [place] [address] 250 [place], [place] 333455 Internal Medicine 11/11/19 Charleen Lynne MD 909 [place] [address] Assigned Cancer Care Provider 12/23/19 03/23/21 Shakira Chapa MD [place] IN [place] OF 06/29/2020 Assigned Surgical Provider 12/23/19 Zoltan Eric DPM [address] [facility] [address] [place] [address] Assigned Musculoskeletal Provider 12/23/19 07/26/21 Delvin Bob MD [address] [place] [address] 250 [place] [address] Assigned PCP 12/08/19 02/14/22 Maximo Mathis DO 909 [place], [place] 0[address]255 Assigned Neuroscience Provider 02/12/20 08/09/21 Sherri Kingston PA 909 [facility] [place] [address] Assigned Surgical Provider 07/15/2010/06/20 Pedro Winchester MD [address] [place] [address] Assigned Heart and Vascular Provider 08/05/20 01/31/22 Shakira Chapa MD [place] IN [place] OF 06/29/2020 Assigned Surgical Provider 10/07/20 Jovanni Dempsey MD 600 [place] [address] Assigned Nephrology Provider 03/24/21 03/14/22 Jovanni Dempsey MD 600 [place] [address] Assigned Nephrology Provider 03/15/22 03/21/22 Len Hooks MD [address] [place] [address] [place] [address] Assigned Nephrology Provider 03/22/22 12/26/22 Delvin Bob MD [address] [place] [address] [facility] 250 [place], [place] 964515 Assigned PCP 04/26/22 12/12/22 Love Hernandez PA-C [address] [place] [place], [place] [address] Physician Hooking Machine Operator Urology 12/01/22 Conrado Evans MD [address] [place] [address] [facility] [address] [place] [address] Assigned Nephrology Provider 12/27/22 06/21/24 Love Hernandez PA-C [address] [place] [address] [place], [place] [address]2555 Assigned Surgical Provider 01/17/23 [place] [address] [address] [place] [address] Assigned Gastroenterology Provider 07/23/23 Everardo Grant MD 9 [place], [place] 684645 Physician Infectious Diseases 09/23/23 Rey Billings MD [address] [place] [address] 678365 Assigned Infectious Disease Provider 10/23/23 Conrado Evans MD [address] [place] [address] 353 [facility] 1932 [place], [place] [address]094 Nephrology 08/25/24 Delvin Lopez MD [address] [place] [address]4415 Nephrology 08/25/24 Carissa Putnam, RN [facility] 711 [place], [place] [id number] Specialty [place] Cutter Operator Pharmacy 10/10/24 documented as of this encounter
--- OUTSIDE RECORDS SUMMARY | 2024-10-13 09:01 | XMS_ITS | Encounter Summary ---
Author Organization [place] Address [address] [place] [address] Care Team Providers Care Helper Shear Operator Name Role Phone Robert Marley MD Primary Care Provider [phone] Tayo Lacey MD Unavailable [phone] Christopher Quiroga MD Unavailable Claudia Yousif RN Unavailable Lance Simpson PA-C Unavailable Sherri Kingston Unavailable [phone] Delvin Bob MD Unavailable Delvin Bob MD Unavailable Pedro Winchester MD Unavailable Jovanni Dempsey MD Unavailable [phone] Jovanni Dempsey MD Unavailable Len Hooks MD Unavailable Delvin Bob MD Unavailable Love Hernandez PA-C Unavailable Conrado Evans MD Unavailable Love Hernandez PA-C Unavailable Gordy Nickerson MD Unavailable Everardo Grant MD Unavailable Rey Billings MD Unavailable [phone] Conrado Evans MD Unavailable [phone] Delvin Lopez MD Unavailable [phone] Carissa Putnam RN Unavailable [phone] Encounter Details Date Type Department Care Team (Late Contact Info) Description 12/09/2021 MyC Medical Advice [facility] [address] [place] [address] Diana Parsons, RN Social History Tobacco Use Types Packs/Day Years Used Date Smoking Tobacco: Former Smokeless Tobacco: Never Alcohol Use Standard Drinks/Week Comments No 0 (1 standard drink = 0.6 oz pur e alcohol) PHQ-2 Answer Date Recorded PHQ-2 Score 1 08/29/2021 Comments No Sex and Gender Information Value Date Recorded Sex Assigned at Not on file Legal Sex Female 3:26 AM STRIPPER PRELIMINARY Gender Identity Not on file Sexual Orientation Not on file Occupation Industry Job Start Date Job End Date Not on file Not on file Not on file Not on file COVID-19 Exposure Response Date Recorded In the last 10 days, have yo u been in contact with someone who was confirmed or suspected to have Coronavirus/COVID-19? No / Unsure 12/05/2021 9:12 PM CDT documented as of this encounter Plan of Treatment Upcoming Encounters Date Type Department Care Team (Late Contact Info) Description 10/25/2024 10:00 AM CDT Virtual Visit [facility] [address] [place] [address] Edith Brito 10/26/2024 8:30 AM CDT Lab [facility] [address] [place] [place] [address] Conrado Evans MD 717 [facility] 353 [facility] [address] [place] [address] documented as of this encounter Visit Diagnoses Not on filedocumented in this encounter Additional Health Concerns 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 The [place] Department of [facility] ([facility]) and CDC recommend that we screen this patient to prevent the spread of these organisms within our healthcare facility. Infection Prevention has placed orders for collecting a rectal swab for CP-INVESTMENT PROFESSIONAL to evaluate if this patient is now a carrier. This patient was identified to have a low risk exposure in which case Contact Precautions are not necessary unless the patient tests positive. Screening is voluntary. Please notify Infection Prevention if the patient declines testing. Additional information and resources can be found on the Infection Prevention MDRO Sharepoint page. 08/04/2023 08/04/2023 02/02/2024 11:39 PM STRIPPER PRELIMINARY Rule Out Parvovirus 09/28/2023 09/28/2023 10/05/19 24 11:41 PM CDT Assessment Noted Time PHQ-9 Depression Total Score: 11 020 2:07 PM STRIPPER PRELIMINARY documented as of this encounter Care Teams Helper Shear Operator Relationship Specialty Start Date End Date Robert Marley MD [facility] [id number] [place] [address] PCP - General Family Practice 12/08/10 Tayo Lacey MD [facility] [id number] [place] [address] Cardiology 08/30/14 Christopher Quiroga MD [facility] [address] [facility] 200 [place] [address] Oncology 07/02/16 Claudia Yousif, RN Nurse Coordinator Gastroenterology 02/09/17 09/16/22 Lance Simpson PA-C 909 [place] [address] Physician Crabber Physician Crabber 01/07/18 Sherri Kingston PA 909 [facility] [place] [address] Physician Crabber Physician Crabber 12/21/18 Delvin Bob MD 420 [facility] 250 [place] [address] Internal Medicine 11/11/19 Delvin Bob MD 420 [facility] 250 [place] [address] Assigned PCP 12/08/19 02/14/22 Pedro Winchester MD [address] [place] [address] Assigned Heart and Vascular Provider 08/05/20 01/31/22 Jovanni Dempsey MD 600 [place], [place] [address] Assigned Nephrology Provider 03/24/21 03/14/22 Jovanni Dempsey MD 600 [place] [address] Assigned Nephrology Provider 03/15/22 03/21/22 Len Hooks MD 717 [facility] 353 [place] [address] Assigned Nephrology Provider 03/22/22 12/26/22 Delvin Bob MD [address] [place] [address] 250 [place], [place] [address] Assigned PCP 04/26/22 12/12/22 Love Hernandez PA-C [address] [place] [address] [place], [place] [address] Physician Crabber Urology 12/01/22 Conrado Evans MD 717 [facility] 353 [facility] [address] [place] [address] Assigned Nephrology Provider 12/27/22 06/21/24 Love Hernandez PA-C [address] [facility] 500 [place] [address] Assigned Surgical Provider 01/17/23 [place] [address] [place] [address] Assigned Gastroenterology Provider 07/23/23 Everardo Grant MD 909 [place], [place] [address] Physician Infectious Diseases 09/23/23 Rey Billings MD [address] [place] [address] 985135 Assigned Infectious Disease Provider 10/23/23 Conrado Evans MD 717 [facility] 353 [facility] [address] [place] [address] Nephrology 08/25/24 Delvin Lopez MD 909 [place] [address] Nephrology 08/25/24 Carissa Putnam, RN [facility] 711 [place] [address] Specialty Welding Machine Operator/Tender Pharmacy 10/10/24 documented as of this encounter
--- OUTSIDE RECORDS SUMMARY | 2024-10-13 09:01 | XMS_ITS | Encounter Summary ---
Author Organization [facility] Address [address] [place] [address] Care Team Providers Care Robotic Maintenance Technician Name Role Phone Robert Marley MD Primary Care Provider [phone] Berna Kruse MD Unavailable [phone] Roxanna Armas RN Unavailable [phone] Irish Kim RN Unavailable [phone] Chana Cheng MD Unavailable [phone] Anoop Garcia MD Unavailable Unavailable Barbara Carlson MD Unavailable Tayo Lacey MD Unavailable [phone] TuBasil shaikh MD Unavailable MagedCharleen MD Unavailable [phone] Olimpia Williamson RN Unavailable [phone] Rin Dewitt RN Unavailable [phone] Rin Dewitt RN Unavailable [phone] Qian Rodriguez MD Unavailable [phone] Sherri Kingston Unavailable [phone] Olimpia Williamson RN Unavailable [phone] Olimpia Williamson RN Unavailable [phone] Christopher Quiroga MD Unavailable Claudia Yousif RN Unavailable Lance Simpson PA-C Unavailable Olimpia Williamson RN Unavailable Sherri Kingston PA Unavailable [phone] Delvin Bob MD Unavailable Charleen Lynne MD Unavailable [phone] ChapaShakira tellez MD Unavailable Unav ailable Hernesto Zoltan ADRIANM Unavailable [phone] Lisbeth, Delvin England MD Unavailable [phone] Maximo Mathis DO Unavailable + Sherri Kingston Unavailable Pedro Winchester MD Unavailable [phone] ChapaShakira zelaya MD Unavailable Unav ailable Jovanni Dempsey MD Unavailable [phone] Jovanni Dempsey MD Unavailable Len Hooks MD Unavailable Delvin Bob MD Unavailable [phone] Love Hernandez-C Unavailable [phone] Conrado Evans MD Unavailable [phone] Love Hernandez PA-C Unavailable [phone] Gordy Nickerson MD Unavailable Everardo Grant MD Unavailable Rey Billings MD Unavailable [phone] Conrado Evans MD Unavailable Delvin Lopez MD Unavailable [phone] Carissa Putnam RN Unavailable [phone] Encounter Details Date Type Department Care Team (Late Contact Info) Description 02/28/2014 External Order Results [facility] 88 [place] [phone] Social History Tobacco Use Types Packs/Day Years Used Date Smoking Tobacco: Former Smokeless Tobacco: Never Alcohol Use Standard Drinks/Week Comments No 0 (1 standard drink = 0.6 oz pur e alcohol) Comments No Sex and Gender Information Value Date Recorded Sex Assigned at Not on file Legal Sex Female 3:26 AM HOG MAN Gender Identity Not on file Sexual Orientation Not on file Occupation Industry Job Start Date Job End Date Not on file Not on file Not on file Not on file documented as of this encounter Plan of Treatment Upcoming Encounters Date Type Department Care Team (Late Contact Info) Description 10/25/2024 10:00 AM CDT Virtual Visit [facility] [address] [place] [address] Edith Brito 10/26/2024 8:30 AM CDT Lab [facility] [address] [facility] 200 [place] [phone] Conrado Evans MD [address] [place] [address] 353 [facility] 1932 [place] [address] documented as of this encounter Procedures Procedure Name Priority Date/Time Associated Diagnosis Comments EXTERNAL LAB RESULTS Routine 02/27/2014 8:43 AM HOG MAN documented in this encounter Results * (ABNORMAL) TXP External Lab Result (02/27/2014 8:43 AM HOG MAN) Lipase Level (External) 129 23 - 300 U/L LABDE SCAN Magnesium (External) 1.6 1.5 - 2.6 MG/DL LABDE SCAN Phosphorus (External) 3.0 2.5 - 4.5 MG/DL LABDE SCAN Amylase (External) 72 18 - 89 U/L LABDE SCAN CO2 (External) 27 0 - 32 MMOL/L LABDE SCAN Chloride (External) 101 96 - 114 MMOL/L LABDE SCAN Potassium (External) 4.3 3.6 - 5.1 MMOL/L LABDE SCAN Sodium (External) 142 135 - 149 MMOL/L LABDE SCAN Glucose (External) 81 mg/dL LABDE SCAN Creatinine (External) 0.7 0.5 - 1.5 MG/DL LABDE SCAN Urea Nitrogen (External) 12 5 - 24 MG/DL LABDE SCAN Calcium (External) 9.1 8.4 - 10.6 MG/DL LABDE SCAN Absolute Monocytes (External) 0.18(L) K/UL LABDE SCAN Absolute Lymphocytes (External) 0.20(L) 0.90 - 2.90 K/UL LABDE SCAN Absolute Neutrophils (External) 2.00 1.70 - 7.00 K/UL LABDE SCAN % Basophils (External) 0.8 % LABDE SCAN % Eosinophils (External) 4.4 0.0 - 7.0 % LABDE SCAN % Monocytes (External) 7.2 0 - 11.0 % LABDE SCAN % Lymphocytes (External) 8.0(L) 25.0 - 45.0 % LABDE SCAN % Neutrophils (External) 79.6(H) 50.0 - 70.0 % LABDE SCAN Platelet Count (External) 232 150 - 450 K/UL LABDE SCAN MCHC (External) 30(L) 32 - 36 GM/DL LABDE SCAN MCH (External) 28 27 - 34 PG LABDE SCAN MCV (External) 95 82 - 98 FL LABDE SCAN Hematocrit (External) 34.3(L) 34.9 - 44.5 % LABDE SCAN Hemoglobin (External) 10.2(L) 12.0 - 15.5 GM/DL LABDE SCAN WBC Count (External) 2.51(L) 5.00 - 10.00 K/UL LABDE SCAN 02/27/2014 8:43 AM HOG MAN Narrative BOBBY NESBITT - 02/28/2014 6:54 AM HOG MAN Verified by Deisi Justice on 02/28/2014. us Patient Reported LABORATORY Edited Result - Final XANDEREliceo PFT LABDE SCAN documented in this encounter [...] the IP on-call for review. Meena Torres [facility] Infection Prevention 07/11/2019 at [...] Out COVID-19 04/19/2020 04/19/2020 04/19/2020 1:56 PM HOG MAN Rule Out COVID-19 04/19/2020 04/20/2020 04/20/2020 6:34 AM HOG MAN Rule Out COVID-19 12/15/2020 12/15/2020 12/15/2020 4:33 PM CDT Rule Out C-difficile 01/06/2021 01/08/2021 021 11:43 AM HOG MAN Rule Out C-difficile 07/10/2021 07/10/2021 022 5:56 PM CDT Rule Out C-difficile 07/16/2023 07/16/2023 024 9:21 PM CDT Rule Out Parvovirus 07/16/2023 07/16/2023 07/19/19 24 12:29 PM CDT Parvovirus 07/16/2023 07/16/2023 10/03/2024 4:22 PM CDT [id number] Comment:This patient was exposed to a person with a known CP-COMMUNITY CENTER COORDINATOR and has the potential for having acquired this pathogen of concern. The [place] Department of [facility] ([facility]) and CDC recommend that we screen this patient to prevent the spread of these organisms within our healthcare facility. Infection Prevention has placed orders for collecting a rectal swab for CP-COMMUNITY CENTER COORDINATOR to evaluate if this patient is now a carrier. This patient was identified to have a low risk exposure in which case Contact Precautions are not necessary unless the patient tests positive. Screening is voluntary. Please notify Infection Prevention if the patient declines testing. Additional information and resources can be found on the Infection Prevention MDRO Sharepoint page. 08/04/2023 08/04/2023 02/02/2024 11:39 PM HOG MAN Rule Out Parvovirus 09/28/2023 09/28/2023 10/05/19 24 11:41 PM CDT documented as of this encounter Care Teams Robotic Maintenance Technician Relationship Specialty Start Date End Date Robert Marley MD [address] [address] PCP - General Family Practice 12/08/10 Berna Kruse MD [facility] [address] [place] [address] Nephrology 07/15/12 05/25/14 Roxanna Armas, RN Registered Nurse Transplant 07/15/12 05/25/14 Irish Kim RN Registered Nurse Transplant 05/26/14 09/20/14 Chana Cheng MD [facility] [address] [place] [address] Nephrology 05/26/14 11/12/15 Anoop Garcia MD [facility] [address] [place] [address] MD Transplant 05/26/14 02/02/18 Barbara Carlson MD [address] [place] [address] Referring Physician Nephrology 08/30/14 11/12/15 Tayo Lacey MD [address] [place] [address] Cardiology 08/30/14 Basil Plummer MD [address] [place] [address] 514035 Neurology 05/09/15 04/23/16 Charleen Lynne MD [address] [place] [address] Oncology 06/14/15 12/19/18 Olimpia Williamson RN Nurse Coordinator Oncology 06/14/15 04/23/16 Rin Dewitt RN Nurse Coordinator Neurology 07/24/15 04/23/16 Rin Dewitt RN Nurse Coordinator Neurology 10/25/15 10/12/17 Qian Rodriguez MD 717 [facility] 353 [place], [place] [address] Nephrology 11/13/15 06/16/16 Sherri Kingston PA 420 [facility] 394 [place], [place] [address] Physician Media Intern Physician Media Intern 03/20/16 Olimpia Williamson, RN Nurse Coordinator Oncology 06/26/16 06/26/16 Olimpia Williamson, RN Nurse Coordinator Oncology 06/26/16 06/16/18 Christopher Quiroga MD [facility] [address] [place] [address] 200 [place], [place] [address] Oncology 07/02/16 Claudia Yousif RN Nurse Coordinator Gastroenterology 02/09/17 09/16/22 Lance Simpson PA-C 909 [place], [place] [address] Physician Media Intern Physician Media Intern 01/07/18 Olimpia Williamson, RN Specialty Coordinate Measuring Equipment Operator Hematology & Oncology 05/06/18 12/19/18 Sherri Kingston PA 909 [facility] Urology [place], [place] [address] Physician Media Intern Physician Media Intern 12/21/18 Delvin Bob MD 420 [facility] 250 [place], [place] [address] Internal Medicine 11/11/19 Charleen Lynne MD [address] [place] [address] 628635 Assigned Cancer Care Provider 12/23/19 03/23/21 Shakira Chapa MD [facility] OF 06/29/2020 Assigned Surgical Provider 12/23/19 07/14/20 Zoltan Eric DPM [address] [facility] [address] [place] [address] Assigned Musculoskeletal Provider 12/23/19 07/26/21 Delvin Bob MD [address] [place] [address] 250 [place], [place] [address] Assigned PCP 12/08/19 02/14/22 Maximo Mathis DO [address] [place] [address] 232735 Assigned Neuroscience Provider 02/12/20 08/09/21 Sherri Kingston PA [address] [place] [address] [place]rology [place], [place] [address] Assigned Surgical Provider 07/15/20 10/06/20 Pedro Winchester MD [address] [place] [address] Assigned Heart and Vascular Provider 08/05/20 01/31/22 Shakira Chapa MD INACTIVE IN [facility] OF 06/29/2020 Assigned Surgical Provider 10/07/20 10/13/20 Jovanni Dempsey MD 600 [place], [place] [address] Assigned Nephrology Provider 03/24/21 03/14/22 Jovanni Dempsey MD 600 [place], [place] 1225[address] Assigned Nephrology Provider 03/15/22 03/21/22 Len Hooks MD [address] [place] [place], [place] [address] Assigned Nephrology Provider 03/22/22 12/26/22 Delvin Bob MD 420 [facility] 250 [place], [place] [address] Assigned PCP 04/26/22 12/12/22 Love Hernandez PA-C [address] [place], [place] [address] Physician Media Intern Urology 12/01/22 Conrado Evans MD [address] [place] 353 [facility] 1932 [place], [place] [address] Assigned Nephrology Provider 12/27/22 06/21/24 Love Hernandez PA-C [address] [facility] [address] [place] [place], [place] [address] Assigned Surgical Provider 01/17/23 [place] [address], [place] [address] Assigned Gastroenterology Provider 07/23/23 Everardo Grant MD 9 [place] [address] Physician Infectious Diseases 09/23/23 Rey Billings MD [address] [place] [address] Assigned Infectious Disease Provider 10/23/23 Conrado Evans MD [address] [place] [address] 353 [facility] [address] [place] [address] Nephrology 08/25/24 Delvin Lopez MD [address] [place] [address] Nephrology 08/25/24 Carissa Putnam RN [facility] 711 [place] [address] Specialty Coordinate Measuring Equipment Operator Pharmacy 10/10/24 10/10/24 documented as of this encounter
--- OUTSIDE RECORDS SUMMARY | 2024-10-13 09:01 | XMS_ITS | Patient Health Record ---
Author Organization [facility] Address [address] [place] [address] [place] [address] Care Team Providers Care Rn Telephone Triage Name Role Phone Robert Marley Primary Care Provider Unavail able ARIANA SHAJI Unavailable [phone] Reason For Referral No Information Medications Medication SIG (Take, Route, Frequency, Duration) Notes Start Date End Date Status dexAMETHasone 1 MG Tablet TABLET 1 BY MO UTH EVERY DAY WITH BREAKFAST. Oral; Duration: 90 Active Midodrine HCl 5 MG Tablet Oral; Duration: 30 Active Prograf 1 MG Capsule as directed Orally Active Neurontin 100 MG Capsule 1 capsule Orall y Once a day Active Warfarin Sodium 10 MG Tablet 1 tablet Or ally Once a day Active Social History Tobacco Use: Social History Observation Description Date Details (start date - stop date) Former Smoker NA - NA Social History Alcohol Use: Social Info Question Answer Notes Alcohol Screen Did you have a drink containing alcohol in the past year? No Points 0 Interpretation Negative Tobacco Use: Social Info Question Answer Notes Tobacco use/smoking Are you a former smoker Problems Problem Type SNOMED Code ICD Code Onset Dates Problem Status W/U Status Risk Notes Problem Cheek swelling (R22.0) Active confirmed Plan Of Treatment No Information Insurance Providers Payer Name Payer Address Payer Phone Subscriber Number Group Number Insured Name Patient Relationship to Insured Coverage Start Date Coverage End Date MEDICARE [address] [place] [address] [id number] Roxanna Monzon Self - patient is the insured [facility] [employer]OND TO MEDICARE [address] [place], [place] [id number] Roxanna Monzon Self - patient is the insured Medical (General) History Medical History History ICD Code Diabetes Autoimmune disorders Kidney and Pancreas transplant Surgical History Surgery Date(Month/Year) Kidney and pancreas transplant 2013 Ankle surgery Jaw surgery
--- OUTSIDE RECORDS SUMMARY | 2024-10-13 09:01 | XMS_ITS | Encounter Summary ---
Author Organization [facility] Address [address] [place] [address] Care Team Providers Care Heel Seat Pounder Name Role Phone Robert Marley MD Primary Care Provider Chana Cheng MD Unavailable [phone] Anoop Garcia MD Unavailable Unavailable Barbara Carlson MD Unavailable Tayo Lacey MD Unavailable [phone] TuBasil shaikh MD Unavailable Charleen Lynne MD Unavailable [phone] Olimpia Williamson RN Unavailable [phone] Rin Dewitt RN Unavailable [phone] Rin Dewitt RN Unavailable [phone] Qian Rodriguez MD Unavailable [phone] Sherri Kingston Unavailable [phone] Olimpia Williamson RN Unavailable [phone] Olimpia Williamsno RN Unavailable [phone] Christopher Quiroga MD Unavailable Claudia Yousif RN Unavailable Lance Simpson PA-C Unavailable [phone] Olimpia Williamson RN Unavailable [phone] Sherri Kingston Unavailable [phone] Delvin Bob MD Unavailable [phone] Charleen Lynne MD Unavailable [phone] ChapaShakira zelaya MD Unavailable Unav ailable Zoltan Eric ADRIANKerry Unavailable +[phone] Delvin Bob MD Unavailable Shante Mathisony Jaden LÓPEZ Unavailable + Sherri Kingston Unavailable +[phone] Pedro Winchester MD Unavailable [phone] ChapaShakira zelaya MD Unavailable Unav ailable Jovanni Dempsey MD Unavailable [phone] Jovanni Dempsey MD Unavailable [phone] Len Hooks MD Unavailable eDlvin Bob MD Unavailable Love Hernandez PA-C Unavailable Conrado Evans MD Unavailable Love Hernandez PA-C Unavailable [phone] Gordy Nickerson MD Unavailable Everardo Grant MD Unavailable Rey Billings MD Unavailable [phone] Conrado Evans MD Unavailable Delvin Lopez MD Unavailable [phone] Carissa Putnam RN Unavailable [phone] Encounter Details Date Type Department Care Team (Late st Contact Info) Description 09/21/2015 External Order Results [facility] [address] [place] [address] Social History Tobacco Use Types Packs/Day Years Used Date Smoking Tobacco: Former Smokeless Tobacco: Never Alcohol Use Standard Drinks/Week Comments No 0 (1 standard drink = 0.6 oz pur e alcohol) Comments No Sex and Gender Information Value Date Recorded Sex Assigned at Not on file Legal Sex Female 3:26 AM PLATFORM SUPERVISOR Gender Identity Not on file Sexual Orientation Not on file Occupation Industry Job Start Date Job End Date Not on file Not on file Not on file Not on file documented as of this encounter Plan of Treatment Upcoming Encounters Date Type Department Care Team (Late st Contact Info) Description 10/25/2024 10:00 AM CDT Virtual Visit [facility] [address] [place] [address] Edith Brito 10/26/2024 8:30 AM CDT Lab [facility] [address] [place] [address] [place] [phone] Conrado Evans MD 712 [facility] 353 [facility] [address] [place] [address] documented as of this encounter Procedures Procedure Name Priority Date/Time Associated Diagnosis Comments EXTERNAL LAB RESULTS Routine 09/21/2015 9:40 AM CDT documented in this encounter Results * (ABNORMAL) TXP External Lab Result (09/21/2015 9:40 AM CDT) Calcium (External) 9.2 8.4 - 10.6 MG/DL LABDE SCAN Urea Nitrogen (External) 28(H) 5 - 24 mg/dL LABDE SCAN Creatinine (External) 0.9 0.5 - 1.5 MG/DL LABDE SCAN Glucose (External) 112 60 - 115 mg/dL LABDE SCAN Sodium (External) 145 135 - 149 MMOL/L LABDE SCAN Potassium (External) 3.8 3.6 - 5.1 mmol/L LABDE SCAN Chloride (External) 104 96 - 114 MMOL/L LABDE SCAN CO2 (External) 28 20 - 32 mmol/L LABDE SCAN Amylase (External) 52 18 - 89 U/L LABDE SCAN Lipase Level (External) 67 23 - 300 U/L LABDE SCAN WBC Count (External) 7.34 5.00 - 10.00 K/UL LABDE SCAN RBC Count (External) 3.24(L) 3.90 - 5.03 M/UL LABDE SCAN Hemoglobin (External) 10.1(L) 12.0 - 15.5 GM/DL LABDE SCAN Hematocrit (External) 30.8(L) 34.9 - 44.5 % LABDE SCAN MCV (External) 95 82 - 98 FL LABDE SCAN MCH (External) 31 27 - 34 PG LABDE SCAN MCHC (External) 33 32 - 36 GM/DL LABDE SCAN Platelet Count (External) 370 150 - 450 K/UL LABDE SCAN % Neutrophils (External) 89.9(H) 50.0 - 70.0 % LABDE SCAN % Lymphocytes (External) 5.9(L) 25.0 - 45.0 % LABDE SCAN % Monocytes (External) 2.3 0.00 - 11.0 % LABDE SCAN % Eosinophils (External) 0.0 0.0 - 7.0 % LABDE SCAN % Basophils (External) 0.4 0.0 - 3.0 % LABDE SCAN Absolute Neutrophils (External) 6.60 1.70 - 7.00 K/UL LABDE SCAN Absolute Lymphocytes (External) 0.43(L) 0.90 - 2.90 K/UL LABDE SCAN Absolute Monocytes (External) 0.17(L) 0.30 - 0.90 K/UL LABDE SCAN Absolute Eosinophils (External) 0.00 0.00 - 0.50 K/UL LABDE SCAN Absolute Basophils (External) 0.03 0.00 - 0.20 K/UL LABDE SCAN % Immature Granulocytes (External) 1.5 % LABDE SCAN Absolute Immature Granulocytes (External) 0.11 0 - 11 K/ul LABDE SCAN Everolimus (External) <1.0 ng/ml LABDE SCAN 09/21/2015 9:40 AM CDT Narrative BOBBY PFT - 09/24/2015 9:44 AM CDT Verified by Alejandra Arellano on 09/21/2015. Verified by Alejandra Arellano on 09/24/2015. us Patient Reported LABORATORY Edited Result - [...] the IP on-call for review. Meena Torres, [facility] Infection Prevention 07/11/2019 [...] Out COVID-19 04/19/2020 04/19/2020 04/19/2020 1:56 PM PLATFORM SUPERVISOR Rule Out COVID-19 04/19/2020 04/20/2020 04/20/2020 6:34 AM PLATFORM SUPERVISOR Rule Out COVID-19 12/15/2020 12/15/2020 12/15/2020 4:33 PM CDT Rule Out C-difficile 01/06/2021 01/08/2021 021 11:43 AM PLATFORM SUPERVISOR Rule Out C-difficile 07/10/2021 07/10/2021 022 5:56 PM CDT Rule Out C-difficile 07/16/2023 07/16/2023 024 9:21 PM CDT Rule Out Parvovirus 07/16/2023 07/16/2023 07/19/19 24 12:29 PM CDT Parvovirus 07/16/2023 07/16/2023 10/03/2024 4:22 PM CDT [id number] Comment:This patient was exposed to a person with a known CP-BATCH OPERATOR and has the potential for having acquired this pathogen of concern. The [place] Department of Health ([facility]) and CDC recommend that we screen this patient to prevent the spread of these organisms within our healthcare facility. Infection Prevention has placed orders for collecting a rectal swab for CP-BATCH OPERATOR to evaluate if this patient is [...] Sharepoint page. 08/04/2023 08/04/2023 02/02/2024 11:39 PM PLATFORM SUPERVISOR Rule Out Parvovirus 09/28/2023 09/28/2023 10/05/19 24 11:41 PM CDT documented as of this encounter Care Teams Heel Seat Pounder Relationship Specialty Start Date End Date Robert Marley MD [facility] [id number] [place] [address] PCP - General Family Practice 12/08/10 Chana Cheng MD [facility] [address] [place] [address] Nephrology 05/26/14 11/12/15 Anoop Garcia MD [facility] [address] [place] [address] Transplant 05/26/14 02/02/18 Barbara Carlson MD [address] [place] [address] Referring Physician Nephrology 08/30/14 11/12/15 Tayo Lacey MD [address] [place] [address] Cardiology 08/30/14 Basil Plummer MD [address] [place] [address] 954495 Neurology 05/09/15 04/23/16 Charleen Lynne MD [address] [place] [address] 119785 MD Oncology 06/14/15 12/19/18 Olimpia Williamson RN Nurse Coordinator Oncology 06/14/15 04/23/16 Rin Dewitt, RN Nurse Coordinator Neurology 07/24/15 04/23/16 Rin Dewitt, RN Nurse Coordinator Neurology 10/25/15 10/12/17 Qian Rodriguez MD [address] [place] [address] [id number] Nephrology 11/13/15 06/16/16 Sherri Kingston PA [address] [place] [address] [address] [place], [place] [phone] Physician Merchandiser Physician Merchandiser 03/20/16 Olimpia Williamson, RN Nurse Coordinator Oncology 06/26/16 06/26/16 Olimpia Williamson, RN Nurse Coordinator Oncology 06/26/16 06/16/18 Christopher Quiroga MD [facility] [address] [address] MD Oncology 07/02/16 Claudia Yousif RN Nurse Coordinator Gastroenterology 02/09/17 09/16/22 Lance Simpson PA-C [address] [place] [address] 207205 Physician Merchandiser Physician Merchandiser 01/07/18 Olimpia Williamson, RN Specialty Sign Artist Hematology & Oncology 05/06/18 12/19/18 Sherri Kingston PA [address] [place] [address] Urology [place], [place] 023[address] Physician Merchandiser Physician Merchandiser 12/21/18 Delvin Bob MD [address] [place] [address] 199515 Internal Medicine 11/11/19 Charleen Lynne MD [address] [place] [address] [id number] Assigned Cancer Care Provider 12/23/19 03/23/21 Shakira Chapa MD [facility] IN [place] OF 06/29/2020 Assigned Surgical Provider 12/23/19 07/14/20 Zoltan Eric DPM [address] [facility] [address] [place], [place] [address] Assigned Musculoskeletal Provider 12/23/19 07/26/21 Delvin Bob MD [address] [place] [address] 250 [place] [address] Assigned PCP 12/08/19 02/14/22 Maximo Mathis DO [address] [place] [address] Assigned Neuroscience Provider 02/12/20 08/09/21 Sherri Kingston PA [address] [place] [address] [place] [address] Assigned Surgical Provider 07/15/20 10/06/20 Pedro Winchester MD [address] [place] [address] Assigned Heart and Vascular Provider 08/05/20 01/31/22 Shakira Chapa MD [place]CTIVE IN [place] OF 06/29/2020 Assigned Surgical Provider 10/07/20 10/13/20 Jovanni Dempsey MD [address] [place] [place], [place] 461452 Assigned Nephrology Provider 03/24/21 03/14/22 Jovanni Dempsey MD [address] [place] [address] Assigned Nephrology Provider 03/15/22 03/21/22 Len Hooks MD [address] [place] [address] Assigned Nephrology Provider 03/22/22 12/26/22 Delvin Bob MD [address] [place] [address] 250 [place], [place] 66[address]95 Assigned PCP 04/26/22 12/12/22 Love Hernandez PA-C [address] [facility] [facility] [address] [place], [place] [address] Physician Merchandiser Urology 12/01/22 Conrado Evans MD [address] [place] [address] 353 [facility] [address] [place] [address] Assigned Nephrology Provider 12/27/22 06/21/24 Love Hernandez PA-C [address] [facility] [address] [facility] [address] [place], [place] [address] Assigned Surgical Provider 01/17/23 [place] [address] [place] [address] Assigned Gastroenterology Provider 07/23/23 Everardo Grant MD [address] [place] [address] 043405 Physician Infectious Diseases 09/23/23 Rey Billings MD [address] [place] [address] [id number] Assigned Infectious Disease Provider 10/23/23 Conrado Evans MD 717 [facility] 353 [facility] [address] [place], [place] [id number] Nephrology 08/25/24 Delvin Lopez MD [address] [place] [address] Nephrology 08/25/24 Carissa Putnam RN [facility] [address] [place] [address] Specialty Sign Artist Pharmacy 10/10/24 10/10/24 documented as of this encounter
--- OUTSIDE RECORDS SUMMARY | 2024-10-13 09:01 | XMS_ITS | Encounter Summary ---
Author Organization [facility] Address [address] [place] [address] Care Team Providers Care Bicycle Assembler Name Role Phone Robert Marley MD Primary Care Provider [phone] Tayo Lacey MD Unavailable [phone] Christopher Quiroga MD Unavailable Claudia Yousif RN Unavailable Lance Simpson PA-C Unavailable [phone] Sherri Kingston Unavailable [phone] Delvin Bob MD Unavailable Zoltan Eric DPM Unavailable [phone] Delvin Bob MD Unavailable [phone] Maximo Mathis DO Unavailable + Pedro Winchester MD Unavailable [phone] Jovanni Dempsey MD Unavailable [phone] Jovanni Dempsey MD Unavailable [phone] Len Hooks MD Unavailable Delvin Bob MD Unavailable [phone] Love HernandezC Unavailable Conrado Evans MD Unavailable [phone] Love HernandezC Unavailable Gordy Nickerson MD Unavailable +[phone] Everardo Grant MD Unavailable Rey Billings MD Unavailable [phone] Conrado Evans MD Unavailable +[phone] Delvin Lopez MD Unavailable [phone] Carissa Putnam RN Unavailable +[phone] Encounter Details Date Type Department Care Team (Late Contact Info) Description 05/09/2021 MyC Medical Advice [facility] [address] [place] [address] Diana Parsons, RN Social History [...] on file 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 Gender Identity Not on file Sexual Orientation Not on file Occupation Industry Job Start Date Job End Date Not on file Not on file Not on file Not on file documented as of this encounter Plan of Treatment Upcoming Encounters Date Type Department Care Team (Late Contact Info) Description 10/25/2024 10:00 AM CDT Virtual Visit [facility] [address] [place] [address] Edith Brito 10/26/2024 8:30 AM CDT Lab [facility] [address] [place] [place] [address] Conrado Evans MD [address] [place] [address] 353 [facility] [address] [place] [address] documented as of this encounter Visit Diagnoses Not on filedocumented in this encounter Additional Health Concerns 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 The [facility] ([facility]) and CDC recommend that we screen this patient to prevent the spread of these organisms within our healthcare facility. Infection Prevention has placed orders for collecting a rectal swab for CP-TUMBLERS SUPERVISOR to evaluate if this patient is [...] Sharepoint page. 08/04/2023 08/04/2023 02/02/2024 11:39 PM MARINE MAMMAL TRAINER Rule Out Parvovirus 09/28/2023 09/28/2023 10/05/19 24 11:41 PM CDT Assessment Noted Time PHQ-9 Depression Total Score: 11 020 2:07 PM MARINE MAMMAL TRAINER documented as of this encounter Care Teams Bicycle Assembler Relationship Specialty Start Date End Date Robert Marley MD [address] [address] PCP - General Family Practice 12/08/10 Tayo Lacey MD [address] [address] Cardiology 08/30/14 Christopher Quiroga MD [facility] [address] [place], [place] [address] Oncology 07/02/16 Claudia Yousif, RN Nurse Coordinator Gastroenterology 02/09/17 09/16/22 Lance Simpson PA-C [address] [place], [place] 214355 Physician Lead Solutions Architect Physician Lead Solutions Architect 01/07/18 Sherri Kingston PA [address] [place] [address] [place]rology [place], [place] 9[address] Physician Lead Solutions Architect Physician Lead Solutions Architect 12/21/18 Delvin Bob MD [address] [place] [address] 250 [place] [address] Internal Medicine 11/11/19 Zoltan Eric DPM [address] [facility] [address] [place] [address] Assigned Musculoskeletal Provider 12/23/19 07/26/21 Delvin Bob MD [address] [place] [address] 250 [place] [address] Assigned PCP 12/08/19 02/14/22 Maximo Mathis DO [address] [place], [place] 311605 Assigned Neuroscience Provider 02/12/20 08/09/21 Pedro Winchester MD [address] [place] [address] Assigned Heart and Vascular Provider 08/05/20 01/31/22 Jovanni Dempsey MD [address] [place], [place] 6[address] Assigned Nephrology Provider 03/24/21 03/14/22 Jovanni Dempsey MD [address] [place], [place] 571[address] Assigned Nephrology Provider 03/15/22 03/21/22 Len Hooks MD [address] [facility] [address] [place], [place] 8[address] Assigned Nephrology Provider 03/22/22 12/26/22 Delvin Bob MD [address] [facility] 250 [place], [place] [address] Assigned PCP 04/26/22 12/12/22 Love Hernandez PA-C [address] [place], [place] [address] Physician Lead Solutions Architect Urology 12/01/22 Conrado Evans MD [address] [facility] [address] [place], [place] [address]164 Assigned Nephrology Provider 12/27/22 06/21/24 Love Hernandez PA-C [address] [place], [place] 9[address] Assigned Surgical Provider 01/17/23 [place] [address] [address], [place] [address] Assigned Gastroenterology Provider 07/23/23 Everardo Grant MD [address] [place] [address] Physician Infectious Diseases 09/23/23 Rey Billings MD [address] [place] [address] Assigned Infectious Disease Provider 10/23/23 Conrado Evans MD [address] [place] [address] 353 [facility] [address] [place] [address] Nephrology 08/25/24 Delvin Lopez MD [address] [place] [address] 209995 Nephrology 08/25/24 Carissa Putnam RN [facility] [address] [place] [address] 902304 Specialty Body Finisher Pharmacy 10/10/24 documented as of this encounter
--- OUTSIDE RECORDS SUMMARY | 2024-10-13 09:01 | XMS_ITS | Encounter Summary ---
Author Organization [facility] Address [address] [place] [address] Care Team Providers Care Folder Seamer Automatic Name Role Phone Robert Marley MD Primary Care Provider [phone] Berna Kruse MD Unavailable [phone] Roxanna Armas RN Unavailable [phone] Irish Kim RN Unavailable +[phone] Chana Cheng MD Unavailable [phone] Anoop Garcia MD Unavailable Unavailable Barbara Carlson MD Unavailable Tayo Lacey MD Unavailable [phone] TuBasil shaikh MD Unavailable MagedCharleen MD Unavailable +[phone] Olimpia Williamson RN Unavailable [phone] Rin Dewitt RN Unavailable [phone] Rin Dewitt RN Unavailable [phone] Qian Rodriguez MD Unavailable [phone] Sherri Kingston Unavailable [phone] Olimpia Williamson RN Unavailable [phone] Olimpia iWlliamson RN Unavailable [phone] Christopher Quiroga MD Unavailable Claudia Yousif RN Unavailable Lacne Simpson PA-C Unavailable Olimpia Williamson RN Unavailable [phone] Sherri Kingston PA Unavailable [phone] Delvin Bob MD Unavailable +[phone] Charleen Lynne MD Unavailable [phone] ChapaShakira tellez MD Unavailable Unav ailable Hernesto Zoltan ADRIANM Unavailable +[phone] Lisbeth, Delvin England MD Unavailable +[phone] Maximo Mathis DO Unavailable + Sherri Kingston Unavailable Pedro Winchester MD Unavailable +[phone] ChapaShakira zelaya MD Unavailable Unav ailable Jvoanni Dempsey MD Unavailable [phone] Jovanni Dempsey MD Unavailable Len Hooks MD Unavailable Delvin Bob MD Unavailable +[phone] Love Hernandez-C Unavailable [phone] Conrado Evans MD Unavailable +[phone] Love Hernandez PA-C Unavailable [phone] Gordy Nickerson MD Unavailable Everardo Grant MD Unavailable Rey Billings MD Unavailable [phone] Conrado Evans MD Unavailable Delvin Lopez MD Unavailable [phone] Carissa Putnam RN Unavailable [phone] Encounter Details Date Type Department Care Team (Late Contact Info) Description 03/13/2014 External Order Results [facility] 2[facility], [facility] [address] [place] [phone] Social History Tobacco Use Types Packs/Day Years Used Date Smoking Tobacco: Former Smokeless Tobacco: Never Alcohol Use Standard Drinks/Week Comments No 0 (1 standard drink = 0.6 oz pur e alcohol) Comments No Sex and Gender Information Value Date Recorded Sex Assigned at Not on file 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 Gender Identity Not on file Sexual Orientation Not on file Occupation Industry Job Start Date Job End Date Not on file Not on file Not on file Not on file documented as of this encounter Plan of Treatment Upcoming Encounters Date Type Department Care Team ([facility] Contact Info) Description 10/25/2024 10:00 AM CDT Virtual Visit [facility] [address] [place] [address] Edith Brito 10/26/2024 8:30 AM CDT Lab [facility] [address] [facility] 200 [place] [phone] Conrado Evans MD [address] [place] [address] 353 [facility] [address] [place] [address] documented as of this encounter Visit Diagnoses [...] the IP on-call for review. Meena Torres, [facility] Infection Prevention 07/11/2019 at 3:56 [...] Out COVID-19 04/19/2020 04/19/2020 04/19/2020 1:56 PM ROUTE SALES SPECIALIST Rule Out COVID-19 04/19/2020 04/20/2020 04/20/2020 6:34 AM ROUTE SALES SPECIALIST Rule Out COVID-19 12/15/2020 12/15/2020 12/15/2020 4:33 PM CDT Rule Out C-difficile 01/06/2021 01/08/2021 021 11:43 AM ROUTE SALES SPECIALIST Rule Out C-difficile 07/10/2021 07/10/2021 022 5:56 PM CDT Rule Out C-difficile 07/16/2023 07/16/2023 024 9:21 PM CDT Rule Out Parvovirus 07/16/2023 07/16/2023 07/19/19 24 12:29 PM CDT Parvovirus 07/16/2023 07/16/2023 10/03/2024 4:22 PM CDT [id number] Comment:This patient was exposed to a person with a known CP-INFRASTRUCTURE ADMINISTRATOR and has the potential for having acquired this pathogen of concern. The [place] Department of Health ([facility]) and CDC recommend that we screen this patient to prevent the spread of these organisms within our healthcare facility. Infection Prevention has placed orders for collecting a rectal swab for CP-INFRASTRUCTURE ADMINISTRATOR to evaluate if this patient is [...] Sharepoint page. 08/04/2023 08/04/2023 02/02/2024 11:39 PM ROUTE SALES SPECIALIST Rule Out Parvovirus 09/28/2023 09/28/2023 10/05/19 11:41 PM CDT documented as of this encounter Care Teams Folder Seamer Automatic Relationship Specialty Start Date End Date Robert Marley MD [address] [address] PCP - General Family Practice 12/08/10 Berna Kruse MD [facility] [address] [place] [address] Nephrology 07/15/12 05/25/14 Roxanna Armas RN Registered Nurse Transplant 07/15/12 05/25/14 Irish Kim RN Registered Nurse Transplant 05/26/14 09/20/14 Chana Cheng MD [address] [address] Nephrology 05/26/14 11/12/15 Anoop Garcia MD [address] [address] Transplant 05/26/14 02/02/18 Barbara Carlson MD [address] [place] [address] Referring Physician Nephrology 08/30/14 11/12/15 Tayo Lacey MD [address] [place] [address] Cardiology 08/30/14 Basil Plummer MD [address] [place] [address] 927625 Neurology 05/09/15 04/23/16 Charleen Lynne MD [address] [place] [address] 283105 MD Oncology 06/14/15 12/19/18 Olimpia Williamson, RN Nurse Coordinator Oncology 06/14/15 04/23/16 Rin Dewitt, RN Nurse Coordinator Neurology 07/24/15 04/23/16 Rin Dewitt, RN Nurse Coordinator Neurology 10/25/15 10/12/17 Qian Rodriguez MD 717 [facility] 353 [place], [place] [address] Nephrology 11/13/15 06/16/16 Sherri Kingston PA 420 [facility] 394 [place], [place] [address] Physician Baling Press Operator Physician Baling Press Operator 03/20/16 Olimpia Williamson, RN Nurse Coordinator Oncology 06/26/16 06/26/16 Olimpia Williamson, RN Nurse Coordinator Oncology 06/26/16 06/16/18 Christopher Quiroga MD [facility] [address] [place], [place] [address] MD Oncology 07/02/16 Claudia Yousif RN Nurse Coordinator Gastroenterology 02/09/17 09/16/22 Lance Simpson PA-C [address] [place] [id number] Physician Baling Press Operator Physician Baling Press Operator 01/07/18 Olimpia Williamson, SONIA Specialty It Consulting Manager Hematology & Oncology 05/06/18 12/19/18 Sherri Kingston PA [address] [place] [address] Urology [place], [place] [phone] Physician Baling Press Operator Physician Baling Press Operator 12/21/18 Delvin Bob MD [address] [place] [address] 250 [place], [place] [phone] Internal Medicine 11/11/19 Charleen Lynne MD [address] [place] [address] Assigned Cancer Care Provider 12/23/19 03/23/21 Shakira Chapa MD [facility] 06/29/2020 Assigned Surgical Provider 12/23/19 07/14/20 Zoltan Eric DPM [address] [facility] [address] [place] [address] Assigned Musculoskeletal Provider 12/23/19 07/26/21 Delvin Bob MD 420 [facility] 250 [place] [address] Assigned PCP 12/08/19 02/14/22 Maximo Mathis DO [address] [place] [address] Assigned Neuroscience Provider 02/12/20 08/09/21 Sherri Kingston PA 909 [facility] [place] [place], [place] [address] Assigned Surgical Provider 07/15/20 10/06/20 Pedro Winchester MD 6405 [facility] [place] [address] Assigned Heart and Vascular Provider 08/05/20 01/31/22 Shakira Chapa MD [facility] 06/29/2020 Assigned Surgical Provider 10/07/20 10/13/20 Jovanni Dempsey MD 600 [place] [address] Assigned Nephrology Provider 03/24/21 03/14/22 Jovanni Dempsey MD 600 [place] [address] Assigned Nephrology Provider 03/15/22 03/21/22 Len Hooks MD 717 [facility] 353 [place] [address] Assigned Nephrology Provider 03/22/22 12/26/22 Delvin Bob MD [address] [place] [address] 250 [place] [address] Assigned PCP 04/26/22 12/12/22 Love Hernandez PA-C [address] [facility] [address] [facility] 500 [place], [place] [address] Physician Baling Press Operator Urology 12/01/22 Conrado Evans MD 717 [facility] 353 [facility] 1932 [place] [address] Assigned Nephrology Provider 12/27/22 06/21/24 Love Hernandez PA-C [address] [facility] 500 [place], [place] [address] Assigned Surgical Provider 01/17/23 [place] [address] [place] [address] Assigned Gastroenterology Provider 07/23/23 Everardo Grant MD 909 [place], [place] [address] Physician Infectious Diseases 09/23/23 Rey Billings MD [address] [place] [address] Assigned Infectious Disease Provider 10/23/23 Conrado Evans MD 717 [facility] 353 [facility] [address] [place] [address] Nephrology 08/25/24 Delvin Lopze MD [address] [place], [place] 68[address] Nephrology 08/25/24 Carissa Putnam RN [facility] [address] [place] [address] Specialty It Consulting Manager Pharmacy 10/10/24 10/10/24 documented as of this encounter
--- OUTSIDE RECORDS SUMMARY | 2024-10-13 09:01 | XMS_ITS | Encounter Summary ---
Author Organization [place] Address [address] [place] [address] Care Team Providers Care Appliance Service Supervisor Name Role Phone Robert Marley MD Primary Care Provider [phone] Tayo Lacey MD Unavailable [phone] Christopher Quiroga MD Unavailable Claudia Yousif RN Unavailable Lance Simpson PA-C Unavailable Sherri Kingston Unavailable [phone] Delvin Bob MD Unavailable Delvin Bob MD Unavailable Pedro Winchester MD Unavailable [phone] Jovanni Dempsey MD Unavailable Jovanni Dempsey MD Unavailable Len Hooks MD Unavailable Delvin Bob MD Unavailable Love Hernandez PA-C Unavailable [phone] Conrado Evans MD Unavailable Love Hernandez PA-C Unavailable Gordy Nickerson MD Unavailable Everardo Grant MD Unavailable Rey Billings MD Unavailable [phone] Conrado Evans MD Unavailable [phone] Delvin Lopez MD Unavailable [phone] Carissa Putnam RN Unavailable [phone] Encounter Details Date Type Department Care Team (Late Contact Info) Description 10/15/2021 MyC Medical Advice [facility] [address] [place] [address] Olivia Foy, SONIA Social History Tobacco Use Types Packs/Day Years Used Date Smoking Tobacco: Former Smokeless Tobacco: Never Alcohol Use Standard Drinks/Week Comments No 0 (1 standard drink = 0.6 oz pur e alcohol) PHQ-2 Answer Date Recorded PHQ-2 Score 1 08/29/2021 Comments No Sex and Gender Information Value Date Recorded Sex Assigned at Not on file Legal Sex 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 Gender Identity Not on file Sexual Orientation Not on file Occupation Industry Job Start Date Job End Date Not on file Not on file Not on file Not on file documented as of this encounter Plan of Treatment Upcoming Encounters Date Type Department Care Team (Late Contact Info) Description 10/25/2024 10:00 AM CDT Virtual Visit [facility] [address] [place] [address] Edith Brito 10/26/2024 8:30 AM CDT Lab [facility] [address] [place] [address] [place] [phone] Conrado Evans MD [address] [place] [address] 353 [facility] [address] [place] [address] documented as of this encounter Visit Diagnoses Not on filedocumented in this encounter Additional Health Concerns 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 The [place] Department of Health ([facility]) and CDC recommend that we screen this patient to prevent the spread of these organisms within our healthcare facility. Infection Prevention has placed orders for collecting a rectal swab for CP-APPRENTICESHIP TRAINING REPRESENTATIVE to evaluate if this patient is now a carrier. This patient was identified to have a low risk exposure in which case Contact Precautions are not necessary unless the patient tests positive. Screening is voluntary. Please notify Infection Prevention if the patient declines testing. Additional information and resources can be found on the Infection Prevention [facility] Sharepoint page. 08/04/2023 08/04/2023 02/02/2024 11:39 PM STAKING ENGINEER Rule Out Parvovirus 09/28/2023 09/28/2023 10/05/19 24 11:41 PM CDT Assessment Noted Time PHQ-9 Depression Total Score: 11 020 2:07 PM STAKING ENGINEER documented as of this encounter Care Teams Appliance Service Supervisor Relationship Specialty Start Date End Date Robert Marley MD [facility] [id number] [place] [address] PCP - General Family Practice 12/08/10 Tayo Lacey MD [facility] [id number] [place] [address] Cardiology 08/30/14 Christopher Quiroga MD [facility] [address] [facility] 200 [place] [address] Oncology 07/02/16 Claudia Yousif RN Nurse Coordinator Gastroenterology 02/09/17 09/16/22 Lance Simpson PA-C 909 [place], [place] [address] Physician Neon Installer Physician Neon Installer 01/07/18 Sherri Kingston PA 909 [facility] Urology [place], [place] [address] Physician Neon Installer Physician Neon Installer 12/21/18 Delvin Bob MD 420 [facility] 250 [place], [place] 8[address] Internal Medicine 11/11/19 Delvin Bob MD [address] 2189[address] Assigned PCP 12/08/19 02/14/22 Pedro Winchester MD 6405 [place], [place] 576545 Assigned Heart and Vascular Provider 08/05/20 01/31/22 Jovanni Dempsey MD 600 [place], [place] [address]652 Assigned Nephrology Provider 03/24/21 03/14/22 Jovanni Dempsey MD 600 [place], [place] [address] Assigned Nephrology Provider 03/15/22 03/21/22 Len Hooks MD [address] [address] Assigned Nephrology Provider 03/22/22 12/26/22 Delvin Bob MD [address] [place] [address] 250 [place], [place] [address]85 Assigned PCP 04/26/22 12/12/22 Love Hernandez PA-C 6363 [facility] 500 [place], [place] [address] Physician Neon Installer Urology 12/01/22 Conrado Evans MD [address] [place] [address] Assigned Nephrology Provider 12/27/22 06/21/24 Love Hernandez PA-C 6363 [facility] 500 [place], [place] [address] Assigned Surgical Provider 01/17/23 [place] [address], [place] [address] Assigned Gastroenterology Provider 07/23/23 Everardo Grant MD [address] [place] [address] 887435 Physician Infectious Diseases 09/23/23 Rey Billings MD [address] [place] [address] 950795 Assigned Infectious Disease Provider 10/23/23 Conrado Evans MD [address] [place] [address] 264494 Nephrology 08/25/24 Delvin Lopez MD 9 [place] [address] Nephrology 08/25/24 Carissa Putnam RN [facility] [address] [place] [address] Specialty Film Processing Shift Supervisor Pharmacy 10/10/24 documented as of this encounter
--- OUTSIDE RECORDS SUMMARY | 2024-10-13 09:01 | XMS_ITS | Encounter Summary ---
Author Organization [facility] Address [address] [place] [address] Care Team Providers Care Model And Dye Person Name Role Phone Robert Marley MD Primary Care Provider [phone] Berna Kruse MD Unavailable [phone] Roxanna Armas RN Unavailable [phone] Irish Kim RN Unavailable [phone] Chana Cheng MD Unavailable [phone] Anoop Garcia MD Unavailable Unavailable Barbara Carlson MD Unavailable Tayo Lacey MD Unavailable [phone] TuBasil shaikh MD Unavailable MagedCharleen MD Unavailable [phone] Olimpia Williamson RN Unavailable [phone] Rin Dewitt RN Unavailable [phone] Rin Dewitt RN Unavailable [phone] Qian Rodriguez MD Unavailable [phone] Sherri Kingston Unavailable [phone] Olimpia Williamson RN Unavailable [phone] Olimpia Williamson RN Unavailable [phone] Christopher Quiroga MD Unavailable Claudia Yousif RN Unavailable Lance Simpson PA-C Unavailable Olimpia Williamson RN Unavailable [phone] Sherri Kingston PA Unavailable Delvin Bob MD Unavailable Charleen Lynne MD Unavailable [phone] ChapaShakira tellez MD Unavailable Unav ailable Hernesto Zoltan ADRIANM Unavailable +[phone] Lisbeth, Delvin England MD Unavailable Maximo Mathis DO Unavailable + Sherri Kingston Unavailable Pedro Winchester MD Unavailable [phone] ChapaShakira zelaya MD Unavailable Unav ailable Jovanni Dempsey MD Unavailable [phone] Jovanni Dempsey MD Unavailable Len Hooks MD Unavailable Delvin Bob MD Unavailable [phone] Love Hernandez-C Unavailable [phone] Conrado Evans MD Unavailable [phone] Love Hernandez PA-C Unavailable [phone] Gordy Nickerson MD Unavailable Everardo Grant MD Unavailable Rey Billings MD Unavailable [phone] Conrado Evans MD Unavailable [phone] Delvin Lopez MD Unavailable [phone] Carissa Putnam RN Unavailable [phone] Encounter Details Date Type Department Care Team (Late Contact Info) Description 03/17/2014 External Order Results [facility], Clinic 2[facility] Building [address] [facility] 88 [place] [phone] Social History Tobacco Use Types Packs/Day Years Used Date Smoking Tobacco: Former Smokeless Tobacco: Never Alcohol Use Standard Drinks/Week Comments No 0 (1 standard drink = 0.6 oz pur e alcohol) Comments No Sex and Gender Information Value Date Recorded Sex Assigned at Not on file Legal Sex Female 3:26 AM LIFE SCIENCES INSTRUCTOR Gender Identity Not on file Sexual Orientation Not on file Occupation Industry Job Start Date Job End Date Not on file Not on file Not on file Not on file documented as of this encounter Plan of Treatment Upcoming Encounters Date Type Department Care Team (Late Contact Info) Description 10/25/2024 10:00 AM CDT Virtual Visit [facility] [address] [place] [address] Edith Brito 10/26/2024 8:30 AM CDT Lab [facility] [address] [facility] [address] [place] [phone] Conrado Evans MD [address] [place] [address] 353 [facility] 1932 [place] [address] documented as of this encounter Procedures Procedure Name Priority Date/Time Associated Diagnosis Comments EXTERNAL LAB RESULTS Routine 03/16/2014 8:25 AM LIFE SCIENCES INSTRUCTOR documented in this encounter Results * (ABNORMAL) TXP External Lab Result (03/16/2014 8:25 AM LIFE SCIENCES INSTRUCTOR) Calcium (External) 8.6 LABDE SCAN Creatinine (External) 0.9 0.5 - 1.5 LABDE SCAN Sodium (External) 145 LABDE SCAN Chloride (External) 101 LABDE SCAN CO2 (External) 26(H) LABDE SCAN Amylase (External) 62 18 - 891 LABDE SCAN Lipase Level Low Scale (External) 89 23 - 30 LABDE SCAN WBC Count (External) 2.66(L) LABDE SCAN Hemoglobin (External) 10.8(L) LABDE SCAN Hematocrit (External) 35.4 LABDE SCAN MCV (External) 91 82 - 98 LABDE SCAN MCH (External) 28 LABDE SCAN MCHC (External) 31 32 - 36 % LABDE SCAN Platelet Count (External) 250 LABDE SCAN % Neutrophils (External) 80.9 % LABDE SCAN % Monocytes (External) 3.0 0.00 - 1 % LABDE SCAN % Basophils (External) 1.1 0.0 - 3.0 % LABDE SCAN Absolute Neutrophils (External) 2.15 LABDE SCAN Absolute Lymphocytes (External) 0.37 LABDE SCAN Absolute Eosinophils (External) 0.03(H) % LABDE SCAN % Immature Granulocytes (External) 0.00 K/UL LABDE SCAN Everolimus (External) 5.4 3 - 8 ng/mL LABDE SCAN BK Virus Interp (External) Not Detected Not Detected LABDE SCAN BK Virus PCR Quant Result (External) <390 Copies/mL LABDE SCAN BK Virus PCR Quant Log (External) <2.6 log copies/mL LABDE SCAN BK Virus PCR Quant Specimen (External) Serum LABDE SCAN Glucose (External) 78 60 - 115 LABDE SCAN 03/16/2014 8:25 AM LIFE SCIENCES INSTRUCTOR Narrative BOBBY PFT - 03/28/2014 11:53 AM LIFE SCIENCES INSTRUCTOR Verified by Velvet Freeman on 03/17/2014. Verified by Guerrero Pinzon on 03/20/2014. Verified by Yvette Christie on 03/28/2014. us Patient Reported LABORATORY Edited Result - [...] Out COVID-19 04/19/2020 04/19/2020 04/19/2020 1:56 PM LIFE SCIENCES INSTRUCTOR Rule Out COVID-19 04/19/2020 04/20/2020 04/20/2020 6:34 AM LIFE SCIENCES INSTRUCTOR Rule Out COVID-19 12/15/2020 12/15/2020 12/15/2020 4:33 PM CDT Rule Out C-difficile 01/06/2021 01/08/2021 021 11:43 AM LIFE SCIENCES INSTRUCTOR Rule Out C-difficile 07/10/2021 07/10/2021 022 5:56 PM CDT Rule Out C-difficile 07/16/2023 07/16/2023 024 9:21 PM CDT Rule Out Parvovirus 07/16/2023 07/16/2023 07/19/19 24 12:29 PM CDT Parvovirus 07/16/2023 07/16/2023 10/03/2024 4:22 PM CDT [id number] Comment:This patient was exposed to a person with a known CP-RESIDENT SERVICES SUPERVISOR and has the potential for having acquired this pathogen of concern. The [place] Department of Health ([facility]) and CDC recommend that we screen this patient to prevent the spread of these organisms within our healthcare facility. Infection Prevention has placed orders for collecting a rectal swab for CP-RESIDENT SERVICES SUPERVISOR to evaluate if this patient is [...] Sharepoint page. 08/04/2023 08/04/2023 02/02/2024 11:39 PM LIFE SCIENCES INSTRUCTOR Rule Out Parvovirus 09/28/2023 09/28/2023 10/05/19 11:41 PM CDT documented as of this encounter Care Teams Model And Dye Person Relationship Specialty Start Date End Date Robert Marley MD [facility] [id number] [place] [address] PCP - General Family Practice 12/08/10 Berna Kruse MD [facility] [address] [place] [address] Nephrology 07/15/12 05/25/14 Roxanna Armas, SONIA Registered Nurse Transplant 07/15/12 05/25/14 Irish Kim RN Registered Nurse Transplant 05/26/14 09/20/14 Chana Cheng MD [place] [address] [place] [address] Nephrology 05/26/14 11/12/15 Anoop Garcia MD [facility] [address] [place] [address] Transplant 05/26/14 02/02/18 Barbara Carlson MD [address] [place] [address] Referring Physician Nephrology 08/30/14 11/12/15 Tayo Lacey MD [address] [place] [address] Cardiology 08/30/14 Basil Plummer MD [address] [place] [address] Neurology 05/09/15 04/23/16 Charleen Lynne MD [address] [place] [address] 085415 Oncology 06/14/15 12/19/18 Olimpia Williamson, RN Nurse Coordinator Oncology 06/14/15 04/23/16 Rin Dewitt, RN Nurse Coordinator Neurology 07/24/15 04/23/16 Rin Dewitt, RN Nurse Coordinator Neurology 10/25/15 10/12/17 Qian Rodriguez MD [address] [place] [address] Nephrology 11/13/15 06/16/16 Sherri Kingston PA [address] [place] [address] 394 [place], [place] [address] Physician Feather Duster Winder Physician Feather Duster Winder 03/20/16 Olimpia Williamson, RN Nurse Coordinator Oncology 06/26/16 06/26/16 Olimpia Williamson, RN Nurse Coordinator Oncology 06/26/16 06/16/18 Christopher Quiroga MD [facility] [address] [facility] 200 [place] [address] Oncology 07/02/16 Claudia Yousif RN Nurse Coordinator Gastroenterology 02/09/17 09/16/22 Lance Simpson PA-C [address] [place] [address] 862245 Physician Feather Duster Winder Physician Feather Duster Winder 01/07/18 Olimpia Williamson, RN Specialty Tool Room Attendant Hematology & Oncology 05/06/18 12/19/18 Sherri Kingston PA [address] [place] [address] [place]rology [place] [address]48[address] Physician Feather Duster Winder Physician Feather Duster Winder 12/21/18 Delvin Bob MD [address] [place] [address] 250 [place] [address] Internal Medicine 11/11/19 Charleen Lynne MD [address] [place] [address] 170445 Assigned Cancer Care Provider 12/23/19 03/23/21 Shakira Chapa MD INACTIVE IN [place] OF 06/29/2020 Assigned Surgical Provider 12/23/19 07/14/20 Zoltan Eric DPM [address] [facility] [address] [place] [address] Assigned Musculoskeletal Provider 12/23/19 07/26/21 Delvin Bob MD [address] [place] [address] 250 [place] [address] Assigned PCP 12/08/19 02/14/22 Maximo Mathis DO [address] [place] [address] Assigned Neuroscience Provider 02/12/20 08/09/21 Sherri Kingston PA [address] [place] [address] [place] [address] Assigned Surgical Provider 07/15/20 10/06/20 Pedro Winchester MD 6405 [place] [address] Assigned Heart and Vascular Provider 08/05/20 01/31/22 Shakira Chapa MD INACTIVE IN [place] OF 06/29/2020 Assigned Surgical Provider 10/07/20 10/13/20 Jovanni Dempsey MD 600 [place], [place] 4597[address] Assigned Nephrology Provider 03/24/21 03/14/22 Jovanni Dempsey MD 600 [place] [address] Assigned Nephrology Provider 03/15/22 03/21/22 Len Hooks MD 717 [facility] 353 [place] [address] Assigned Nephrology Provider 03/22/22 12/26/22 Delvin Bob MD [address] [place] [address] 250 [place] [address] Assigned PCP 04/26/22 12/12/22 Love Hernandez PA-C 6363 [facility] 500 [place] [address] Physician Feather Duster Winder Urology 12/01/22 Conrado Evans MD [address] [place] [address] [address] [place] [address] Assigned Nephrology Provider 12/27/22 06/21/24 Love Hernandez PA-C 6363 [facility] 500 [place], [place] 9608[address] Assigned Surgical Provider 01/17/23 [place] [address] [place] [address] Assigned Gastroenterology Provider 07/23/23 Everardo Grant MD [address] [place] [address] Physician Infectious Diseases 09/23/23 Rey Billings MD [address] [place] [address] Assigned Infectious Disease Provider 10/23/23 Conrado Evans MD 717 [facility] 353 [facility] [address] [place] [address] Nephrology 08/25/24 Delvin Lopez MD [address] [place] [address] 799875 Nephrology 08/25/24 Carissa Putnam RN [facility] 7[address] [place] [address] Specialty Tool Room Attendant Pharmacy 10/10/24 10/10/24 documented as of this encounter
--- OUTSIDE RECORDS SUMMARY | 2024-10-13 09:01 | XMS_ITS | Encounter Summary ---
Author Organization [facility] Address [address] [place] [address] Care Team Providers Care Email Production Specialist Name Role Phone Robert Marley MD Primary Care Provider [phone] Berna Kruse MD Unavailable [phone] Roxanna Armas RN Unavailable [phone] Irish Kim RN Unavailable [phone] Chana Cheng MD Unavailable [phone] Anoop Garcia MD Unavailable Unavailable Barbara Carlson MD Unavailable Tayo Lacey MD Unavailable [phone] TuBasil shaikh MD Unavailable MagedCharleen MD Unavailable [phone] Olimpia Williamson RN Unavailable [phone] Rin Dewitt RN Unavailable [phone] Rin Dewitt RN Unavailable [phone] Qian Rodriguez MD Unavailable [phone] Sherri Kingston Unavailable [phone] Olimpia Williamson RN Unavailable [phone] Olimpia Williamson RN Unavailable [phone] Christopher Quiroga MD Unavailable Claudia Yousif RN Unavailable Lance Simpson PA-C Unavailable Olimpia Williamson RN Unavailable Sherri Kingston PA Unavailable Delvin Bob MD Unavailable [phone] Charleen Lynne MD Unavailable [phone] ChapaShakira tellez MD Unavailable Unav ailable Hernesto Zoltan ADRIANM Unavailable +[phone] Lisbeth, Delvin England MD Unavailable [phone] Maximo Mathis DO Unavailable + Sherri Kingston Unavailable Pedro Winchester MD Unavailable [phone] ChapaShakira zelaya MD Unavailable Unav ailable Jovanni Dempsey MD Unavailable Jovanni Dempsey MD Unavailable Len Hooks MD Unavailable Delvin Bob MD Unavailable [phone] Love Hernandez-C Unavailable [phone] Conrado Evans MD Unavailable [phone] Love Hernandez PA-C Unavailable [phone] Gordy Nickerson MD Unavailable Everardo Grant MD Unavailable Rey Billings MD Unavailable [phone] Conrado Evans MD Unavailable Delvin Lopez MD Unavailable [phone] Carissa Putnam RN Unavailable [phone] Encounter Details Date Type Department Care Team (Late Contact Info) Description 02/28/2014 External Order Results [facility] 2[facility], Clinic 2A [facility] Building 516 [facility] 88 [place] [phone] Social History Tobacco Use Types Packs/Day Years Used Date Smoking Tobacco: Former Smokeless Tobacco: Never Alcohol Use Standard Drinks/Week Comments No 0 (1 standard drink = 0.6 oz pur e alcohol) Comments No Sex and Gender Information Value Date Recorded Sex Assigned at Not on file Legal Sex Female 3:26 AM PRINTER MACHINE Gender Identity Not on file Sexual Orientation Not on file Occupation Industry Job Start Date Job End Date Not on file Not on file Not on file Not on file documented as of this encounter Plan of Treatment Upcoming Encounters Date Type Department Care Team (Late Contact Info) Description 10/25/2024 10:00 AM CDT Virtual Visit [facility] [address] [place] [address] Edith Brito 10/26/2024 8:[address] [facility] Medical Ctr [facility] [address] [facility] 200 [place] [phone] Conrado Evans MD [address] [place] [address] 353 [facility] 1932 [place] [address] documented as of this encounter Procedures Procedure Name Priority Date/Time Associated Diagnosis Comments EXTERNAL LAB RESULTS Routine 02/24/2014 8:50 AM PRINTER MACHINE documented in this encounter Results * (ABNORMAL) TXP External Lab Result (02/24/2014 8:50 AM PRINTER MACHINE) Lipase Level (External) 159 23 - 300 U/L LABDE SCAN Magnesium (External) 1.3(L) MG/DL LABDE SCAN Phosphorus (External) 2.5 2.5 - 4.5 MG/D LABDE SCAN Amylase (External) 78 18 - 89 U/L LABDE SCAN CO2 (External) 24 20 - 32 mmol/L LABDE SCAN Chloride (External) 103 96 - 114 MMOL/L LABDE SCAN Potassium (External) 4.3 3.6 - 5.1 mmol/L LABDE SCAN Sodium (External) 132(L) 135 - 149 MMOL/L LABDE SCAN Glucose (External) 88 60 - 115 mg/dL LABDE SCAN Creatinine (External) 0.6 0.5 - 1.5 MG/DL LABDE SCAN Urea Nitrogen (External) 15 5 - 24 mg/dL LABDE SCAN Calcium (External) 8.9 8.4 - 10.6 MG/DL LABDE SCAN WBC Count (External) 3.88(L) 5.0 - 10.0 K/UL LABDE SCAN Hemoglobin (External) 10.9(L) 12.0 - 15.5 GM/DL LABDE SCAN Hematocrit (External) 36.5 34.9 - 44.5 % LABDE SCAN Platelet Count (External) 276 150 - 450 K/UL LABDE SCAN % Neutrophils (External) 81.7(H) 50.0 - 70.0 % LABDE SCAN % Lymphocytes (External) 8.2(L) 25.0 - 45.0 % LABDE SCAN Absolute Neutrophils (External) 3.17 1.7 - 7.0 K/UL LABDE SCAN Absolute Lymphocytes (External) 0.32(L) 0.9 - 8 K/UL LABDE SCAN % Immature Granulocytes (External) 0.3 % LABDE SCAN Absolute Immature Granulocytes (External) 0.01 K/UL LABDE SCAN 02/24/2014 8:50 AM PRINTER MACHINE Narrative BOBBY PFT - 02/28/2014 1:18 PM PRINTER MACHINE Verified by Guerrero Pinzon on 02/28/2014. us [...] 07/25/2019 5:33 AM CDT 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, 4/15 urine 09/23/2019 09/23/2019 09/0 03/2019 11:12 AM CDT Rule Out COVID-19 09/27/2019 09/27/2019 09/27/2019 3:20 PM CDT VRE-Standard Precautions 11/01/2019 11/01/2019 5:40 PM CDT 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, 44/15 urine 12/26/2019 12/26/2019 Rule Out COVID-19 04/19/2020 04/19/2020 04/19/2020 1:56 PM PRINTER MACHINE Rule Out COVID-19 04/19/2020 04/20/2020 04/20/2020 6:34 AM PRINTER MACHINE Rule Out COVID-19 12/15/2020 12/15/2020 12/15/2020 4:33 PM CDT Rule Out C-difficile 01/06/2021 01/08/2021 021 11:43 AM PRINTER MACHINE Rule Out C-difficile 07/10/2021 07/10/2021 022 5:56 PM CDT Rule Out C-difficile 07/16/2023 07/16/2023 024 9:21 PM CDT Rule Out Parvovirus 07/16/2023 07/16/2023 07/19/19 24 12:29 PM CDT Parvovirus 07/16/2023 07/16/2023 10/03/2024 4:22 PM CDT [id number] Comment:This patient was exposed to a person with a known CP-ACCREDITED LEGAL SECRETARY and has the potential for having acquired this pathogen of concern. The [place] Department of Health ([facility]) and CDC recommend that we screen this patient to prevent the spread of these organisms within our healthcare facility. Infection Prevention has placed orders for collecting a rectal swab for CP-ACCREDITED LEGAL SECRETARY to evaluate if this patient is now a carrier. This patient was identified to have a low risk exposure in which case Contact Precautions are not necessary unless the patient tests positive. Screening is voluntary. Please notify Infection Prevention if the patient declines testing. Additional information and resources can be found on the Infection Prevention MDRO Sharepoint page. 08/04/2023 08/04/2023 02/02/2024 11:39 PM PRINTER MACHINE Rule Out Parvovirus 09/28/2023 09/28/2023 10/05/19 24 11:41 PM CDT documented as of this encounter Care Teams Email Production Specialist Relationship Specialty Start Date End Date Robert Marley MD [address] [address] PCP - General Family Practice 12/08/10 Berna Kruse MD [facility] [address] [place] [address] Nephrology 07/15/12 05/25/14 Roxanna Armas RN Registered Nurse Transplant 07/15/12 05/25/14 Irish Kim RN Registered Nurse Transplant 05/26/14 09/20/14 Chana Cheng MD [address] [address] Nephrology 05/26/14 11/12/[address] [facility] [address] [place] [address] Transplant 05/26/14 02/02/18 Barbara Carlson MD [address] [place] [address] Referring Physician Nephrology 08/30/14 11/12/15 Tayo Lacey MD [address] [place] [address] Cardiology 08/30/14 Basil Plummer MD [address] [place] [address] 778075 Neurology 05/09/15 04/23/16 Charleen Lynne MD [address] [place] [address] 848255 MD Oncology 06/14/15 12/19/18 Olimpia Williamson, SONIA Nurse Coordinator Oncology 06/14/15 04/23/16 Rin Dewitt, RN Nurse Coordinator Neurology 07/24/15 04/23/16 Rin Dewitt, RN Nurse Coordinator Neurology 10/25/15 10/12/17 Qian Rodriguez MD [address] [place] [address] Nephrology 11/13/15 06/16/16 Sherri Kingston PA 420 [facility] 394 [place], [place] [address] Physician Sas Etl Developer Physician Sas Etl Developer 03/20/16 Olimpia Williamson, RN Nurse Coordinator Oncology 06/26/16 06/26/16 Olimpia Williamson, RN Nurse Coordinator Oncology 06/26/16 06/16/18 Christopher Quiroga MD [place] [facility] 675 [address] [facility] 200 [place], [place] [address] MD Oncology 07/02/16 Claudia Yousif RN Nurse Coordinator Gastroenterology 02/09/17 09/16/22 Lance Simpson PA-C [address] [place] [address] 838695 Physician Sas Etl Developer Physician Sas Etl Developer 01/07/18 Olimpia Williamson, RN Specialty Chain Offbearer Hematology & Oncology 05/06/18 12/19/18 Sherri Kingston PA [address] [place] [address] Urology [place], [place] [address] Physician Sas Etl Developer Physician Sas Etl Developer 12/21/18 Delvin Bob MD [address] [place] [address] 250 [place], [place] 2784[address] Internal Medicine 11/11/19 Charleen Lynne MD [address] [place] [address] 420065 Assigned Cancer Care Provider 12/23/19 03/23/21 Shakira Chapa MD INACTIVE IN [place] OF 06/29/2020 Assigned Surgical Provider 12/23/19 07/14/20 Zoltan Eric DPM [address] [employer] [facility] [address] [place] [address] Assigned Musculoskeletal Provider 12/23/19 07/26/21 Delvin Bob MD 420 [facility] 250 [place] [address] Assigned PCP 12/08/19 02/14/22 Maximo Mathis DO [address] [place], [place] [address] Assigned Neuroscience Provider 02/12/20 08/09/21 Sherri Kingston PA 909 [facility] Urology [place], [place] 4[address] Assigned Surgical Provider 07/15/20 10/06/20 Pedro Winchester MD [address] [facility] [address] Assigned Heart and Vascular Provider 08/05/20 01/31/22 Shakira Chapa MD INACTIVE IN [place] OF 06/29/2020 Assigned Surgical Provider 10/07/20 10/13/20 Jovanni Dempsey MD [address] [place] [address] Assigned Nephrology Provider 03/24/21 03/14/22 Jovanni Dempsey MD [address] [place] [address] Assigned Nephrology Provider 03/15/22 03/21/22 Len Hooks MD 717 [facility] 353 [place] [address] Assigned Nephrology Provider 03/22/22 12/26/22 Delvin Bob MD [address] [place] [address] 250 [place] [address] Assigned PCP 04/26/22 12/12/22 Love Hernandez PA-C 6363 [facility] 500 [place] [address] Physician Sas Etl Developer Urology 12/01/22 Conrado Evans MD 717 [facility] 353 [facility] 1932 [place] [address] Assigned Nephrology Provider 12/27/22 06/21/24 Love Hernandez PA-C 6363 [facility] 500 [place], [place] [address] Assigned Surgical Provider 01/17/23 [place] [address], [place] [address] Assigned Gastroenterology Provider 07/23/23 Everardo Grant MD 909 [place] [address] Physician Infectious Diseases 09/23/23 Rey Billings MD [address] [place], [place] 3270[address] Assigned Infectious Disease Provider 10/23/23 Conrado Evans MD 717 [facility] [address] [facility] [address] [place], [place] [address] Nephrology 08/25/24 Delvin Lopez MD 909 [place], [place] 0[address] Nephrology 08/25/24 Carissa Putnam, RN [facility] 711 [place] [address] Specialty Chain Offbearer Pharmacy 10/10/24 10/10/24 documented as of this encounter
--- OUTSIDE RECORDS SUMMARY | 2024-10-13 09:01 | XMS_ITS | Encounter Summary ---
Author Organization [facility] Address [address] [place] [address] Care Team Providers Care Felt Hat Mellowing Machine Operator Name Role Phone Robert Marley MD Primary Care Provider Anoop Garcia MD Unavailable Unavailable Tayo Lacey MD Unavailable [phone] Maged, Charleen Dean MD Unavailable +[phone] Rin Dewitt RN Unavailable [phone] Olimpia Williamson RN Unavailable [phone] Christopher Quiroga MD Unavailable Claudia Yousif RN Unavailable Lance Simpson PA-C Unavailable +[phone] Olimpia Williamson RN Unavailable [phone] Sherri Kingston Unavailable +[phone] Delvin Bob MD Unavailable +[phone] MagedCharleen bernard MD Unavailable +[phone] Shakira Chapa MD Unavailable Unav tristaable Zoltan Eric DPM Unavailable +[phone] Delvin Bob MD Unavailable +[phone] Maximo Mathis DO Unavailable + Sherri Kingston Unavailable +[phone] Pedro Winchester MD Unavailable +[phone] Shakira Chapa MD Unavailable Unav ailable Jovanni Dempsey MD Unavailable +[phone] Jovanni Dempsey MD Unavailable +[phone] Len Hooks MD Unavailable Delvin Bob MD Unavailable +[phone] Love Hernandez PA-C Unavailable Conrado Evans MD Unavailable +[phone] Love Hernandez PA-C Unavailable Gordy Nickerson MD Unavailable +[phone] Everardo Grant MD Unavailable Rey Billings MD Unavailable +[phone] Conrado Evans MD Unavailable +[phone] Delvin Lopez MD Unavailable [phone] Carissa Putnam RN Unavailable +[phone] Encounter Details Date Type Department Care Team (Late st Contact Info) Description 07/13/2017 External Order Results [facility] [address] [place] [address] Social History Tobacco Use Types Packs/Day Years Used Date Smoking Tobacco: Former Smokeless Tobacco: Never Alcohol Use Standard Drinks/Week Comments No 0 (1 standard drink = 0.6 oz pur e alcohol) Comments No Sex and Gender Information Value Date Recorded Sex Assigned at Not on file 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 Sex 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 Gender Identity Not on file Sexual Orientation Not on file Occupation Industry Job Start Date Job End Date Not on file Not on file Not on file Not on file documented as of this encounter Plan of Treatment Upcoming Encounters Date Type Department Care Team (Late st Contact Info) Description 10/25/2024 10:00 AM CDT Virtual Visit [facility] [address] [place] [address] Edith Brito Taylor 10/26/2024 8:30 AM CDT Lab [facility] Medical Ctr [facility] [address] [place] [address] [address] [place] [address] Conrado Evans MD 717 [facility] [address] 353 [facility] 1932 [place] [address] documented as of this encounter Visit Diagnoses Not on filedocumented in this encounter Additional Health Concerns 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 Meena Torres, [facility] Infection Prevention 07/11/2019 at 3:56 [...] Out COVID-19 04/19/2020 04/19/2020 04/19/2020 1:56 PM CAKE ICER AND PACKER Rule Out COVID-19 04/19/2020 04/20/2020 04/20/2020 6:34 AM CAKE ICER AND PACKER Rule Out COVID-19 12/15/2020 12/15/2020 12/15/2020 4:33 PM CDT Rule Out C-difficile 01/06/2021 01/08/2021 021 11:43 AM CAKE ICER AND PACKER Rule Out C-difficile 07/10/2021 07/10/2021 022 5:56 PM CDT Rule Out C-difficile 07/16/2023 07/16/2023 024 9:21 PM CDT Rule Out Parvovirus 07/16/2023 07/16/2023 07/19/19 24 12:29 PM CDT Parvovirus 07/16/2023 07/16/2023 10/03/2024 4:22 PM CDT [id number] Comment:This patient was exposed to a person with a known CP-AGRONOMY LOCATION MANAGER and has the potential for having acquired this pathogen of concern. The [place] Department of Health ([facility]) and CDC recommend that we screen this patient to prevent the spread of these organisms within our healthcare facility. Infection Prevention has placed orders for collecting a rectal swab for CP-AGRONOMY LOCATION MANAGER to evaluate if this patient is [...] Sharepoint page. 08/04/2023 08/04/2023 02/02/2024 11:39 PM CAKE ICER AND PACKER Rule Out Parvovirus 09/28/2023 09/28/2023 10/05/19 24 11:41 PM CDT Assessment Noted Time PHQ-9 Depression Total Score: 15 017 7:11 AM CDT documented as of this encounter Care Teams Felt Hat Mellowing Machine Operator Relationship Specialty Start Date End Date Robert Marley MD [facility] [id number] [place] [address] PCP - General Family Practice 12/08/10 Anoop Garcia MD [facility] [address] [place] [address] Transplant 05/26/14 02/02/18 Tayo Lacey MD [facility] [address] [place] [address] Cardiology 08/30/14 Charleen Lynne MD [address] [place] [address] [id number] Oncology 06/14/15 12/19/18 Rin Dewitt RN Nurse Coordinator Neurology 10/25/15 10/12/17 Olimpia Williamson, RN Nurse Coordinator Oncology 06/26/16 06/16/18 Christopher Quiroga MD [place] [facility] [address] [facility] 200 [place], [place] [id number] Oncology 07/02/16 Claudia Yousif RN Nurse Coordinator Gastroenterology 02/09/17 09/16/22 Lance Simpson PA-C [address] [place] [address] 676665 Physician Gill Box Operator Physician Gill Box Operator 01/07/18 Olimpia Williamson, RN Specialty Formation Testing Operator Hematology & Oncology 05/06/18 12/19/18 Sherri Kingston PA [address] [place] [address] Urology [place], [place] 584205 Physician Gill Box Operator Physician Gill Box Operator 12/21/18 Delvin Bob MD [address] [facility] 250 [place] [address] Internal Medicine 11/11/19 Charleen Lynne MD 909 [place] [address] Assigned Cancer Care Provider 12/23/19 03/23/21 Shakira Chapa MD [place] 06/29/2020 Assigned Surgical Provider 12/23/19 07/14/20 Zoltan Eric DPM [address] [facility] [address] [place] [address] Assigned Musculoskeletal Provider 12/23/19 07/26/21 Delvin Bob MD [address] [facility] 250 [place] [address] Assigned PCP 12/08/19 02/14/22 Maximo Mathis DO 909 [place] [address] Assigned Neuroscience Provider 02/12/20 08/09/21 Sherri Kingston PA 909 [facility] Urology [place], [place] 605715 Assigned Surgical Provider 07/15/20 10/06/20 Pedro Winchester MD [address] [place] [address] Assigned Heart and Vascular Provider 08/05/20 01/31/22 Shakira Chapa MD [place] 06/29/2020 Assigned Surgical Provider 10/07/20 10/13/20 Jovanni Dempsey MD 600 [place], [place] 894302 Assigned Nephrology Provider 03/24/21 03/14/22 Jovanni Dempsey MD 600 [place], [place] 936012 Assigned Nephrology Provider 03/15/22 03/21/22 Len Hooks MD [address] 353 [place], [place] 617664 Assigned Nephrology Provider 03/22/22 12/26/22 Delvin Bob MD [address] [facility] [address] [place], [place] 469065 Assigned PCP 04/26/22 12/12/22 Love Hernandez PA-C [address] 500 [place] [address] Physician Gill Box Operator Urology 12/01/22 Conrado Evans MD [address] 353 [facility] [address] [place], [place] 424114 Assigned Nephrology Provider 12/27/22 06/21/24 Love Hernandez PA-C [address] [place], [place] 712335 Assigned Surgical Provider 01/17/23 [place] [address] [address] [place], [place] 672319 Assigned Gastroenterology Provider 07/23/23 Everardo Grant MD 9 [place], [place] 963235 Physician Infectious Diseases 09/23/23 Rey Billings MD [address] [place] [address] 297825 Assigned Infectious Disease Provider 10/23/23 Conrado Evans MD 717 [facility] [address] 353 [facility] [address] [place], [place] 396914 Nephrology 08/25/24 Delvin Lopez MD [address] [place] [address] 580865 Nephrology 08/25/24 Carissa Putnam RN [facility] 711 [place], [place] 681534 Specialty Formation Testing Operator Pharmacy 10/10/24 10/10/24 documented as of this encounter
--- OUTSIDE RECORDS SUMMARY | 2024-10-13 09:02 | XMS_ITS | Encounter Summary ---
Author Organization [facility] Address [address] [place] [address] Care Team Providers Care Railway Signal Operator Name Role Phone Robert Marley MD Primary Care Provider [phone] Tayo Lacey MD Unavailable [phone] Christopher Quiroga MD Unavailable Claudia Yousif RN Unavailable Lance Simpson PA-C Unavailable +[phone] Sherri Kingston Unavailable +[phone] Delvin Bob MD Unavailable +[phone] Charleen Lynne MD Unavailable +[phone] Zoltan EricM Unavailable +[phone] Delvin Bob MD Unavailable +[phone] Maximo Mathis DO Unavailable + Sherri Kingston Unavailable +[phone] Pedro Winchester MD Unavailable +[phone] Shakira Chapa MD Unavailable Unav ailable Jovanni Dempsey MD Unavailable +[phone] Jovanni Dempsey MD Unavailable +[phone] Len Hooks MD Unavailable Delvin Bob MD Unavailable Love Hernandez PA-C Unavailable Conrado Evans MD Unavailable +[phone] Love Hernandez PA-C Unavailable Gordy Nickerson MD Unavailable +[phone] Everardo Grant MD Unavailable Rey Billings MD Unavailable +[phone] Conrado Evans MD Unavailable +[phone] He TelloleightonDelvin MD Unavailable [phone] Carissa Putnam RN Unavailable +[phone] Encounter Details Date Type Department Care Team (Late Contact Info) Description 07/31/2020 MyC Medical Advice [facility] [address] [place] [address] Diana Parsons, RN Social History Tobacco Use Types Packs/Day Years Used Date Smoking Tobacco: Former Smokeless Tobacco: Never Alcohol Use Standard Drinks/Week Comments No 0 (1 standard drink = 0.6 oz pur e alcohol) PHQ-2 Answer Date Recorded PHQ-2 Score 2 04/05/2019 Comments No Sex and Gender Information Value Date Recorded Sex Assigned at Not on file 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 No / Unsure 07/31/2020 9:52 AM CDT documented as of this encounter Plan of Treatment Upcoming Encounters Date Type Department Care Team (Late Contact Info) Description 10/25/2024 10:00 AM CDT Virtual Visit [facility] [address] [place] [address] Edith Brito 10/26/2024 8:30 AM [facility] [address] [place] [address] 200 [place] [address] Conrado Evans MD [address] [facility] 353 [facility] 1932 [place] [address] documented as of this encounter Visit Diagnoses Not on filedocumented in this encounter Additional Health Concerns 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 The [place] Department of Health ([facility]) and CDC recommend that we screen this patient to prevent the spread of these organisms within our healthcare facility. Infection Prevention has placed orders for collecting a rectal swab for CP-WAYS OPERATOR to evaluate if this patient is [...] Sharepoint page. 08/04/2023 08/04/2023 02/02/2024 11:39 PM WAFER POLISHER Rule Out Parvovirus 09/28/2023 09/28/2023 10/05/19 24 11:41 PM CDT Assessment Noted Time PHQ-9 Depression Total Score: 11 04/05/ 020 2:07 PM WAFER POLISHER documented as of this encounter Care Teams Railway Signal Operator Relationship Specialty Start Date End Date Robert Marley MD ON [facility] OF [facility] [address] [place] [address] PCP - General Family Practice 12/08/10 Tayo Lacey MD ON [facility] OF [facility] [address] [place] [address] Cardiology 08/30/14 Christopher Quiroga MD [place] [facility] [address] [facility] 200 [place] [address] Oncology 07/02/16 Claudia Yousif RN Nurse Coordinator Gastroenterology 02/09/17 09/16/22 Lance Simpson PA-C [address] [place] [address] 748515 Physician Signal Maintainer Physician Signal Maintainer 01/07/18 Sherri Kingston PA [address] [place] [address] Urology [place], [place] 557385 Physician Signal Maintainer Physician Signal Maintainer 12/21/18 Delvin Bob MD [address] [place] [address] 250 [place], [place] 708825 Internal Medicine 11/11/19 Charleen Lynne MD [address] [place] [address] 690605 Assigned Cancer Care Provider 12/23/19 03/23/21 Zoltan Eric DPM [address] [facility] [address] [place] [address] Assigned Musculoskeletal Provider 12/23/19 07/26/21 Delvin Bob MD [address] [place] [address] 250 [place] [address] Assigned PCP 12/08/19 02/14/22 Maximo Mathis DO [address] [place] [address] Assigned Neuroscience Provider 02/12/20 08/09/21 Sehrri Kingston PA [address] [place] [address] Urology [place], [place] 984445 Assigned Surgical Provider 07/15/2010/06/20 Pedro Winchester MD 6405 [facility] [place] [address] Assigned Heart and Vascular Provider 08/05/20 01/31/22 Shakira Chapa MD INACTIVE IN [place] OF 06/29/2020 Assigned Surgical Provider 10/07/20 Jovanni Dempsey MD 600 [place], [place] 477522 Assigned Nephrology Provider 03/24/21 03/14/22 Jovanni Dempsey MD 600 [place] [address] Assigned Nephrology Provider 03/15/22 03/21/22 Len Hooks MD 717 [facility] 353 [place] [address] Assigned Nephrology Provider 03/22/22 12/26/22 Delvin Bob MD 420 [facility] 250 [place] [address] Assigned PCP 04/26/22 12/12/22 Love Hernandez PA-C [address] 500 [place], [place] 74[address]05 Physician Signal Maintainer Urology 12/01/22 Conrado Evans MD [address] [facility] 353 [facility] 1932 [place] [address] Assigned Nephrology Provider 12/27/22 06/21/24 Love Hernandez PA-C [address] [place], [place] 382245 Assigned Surgical Provider 01/17/23 [place] [address] [place] [address] Assigned Gastroenterology Provider 07/23/23 Everardo Grant MD 909 [place], [place] 343155 Physician Infectious Diseases 09/23/23 Rey Billings MD [address] [place] [address] 224005 Assigned Infectious Disease Provider 10/23/23 Conrado Evans MD [address] [facility] [place] 353 [facility] 1932 [place], [place] [address] Nephrology 08/25/24 Delvin Lopez MD 909 [place] [address] Nephrology 08/25/24 Carissa Putnam RN [facility] 711 [place], [place] 106544 Specialty Department Assistant Pharmacy 10/10/24 documented as of this encounter
--- OUTSIDE RECORDS SUMMARY | 2024-10-13 09:02 | XMS_ITS | Encounter Summary ---
Author Organization [facility] Address [address] [place] [address] Care Team Providers Care Apprentice Lineman Third Step Name Role Phone Robert Marley MD Primary Care Provider [phone] Tayo Lacey MD Unavailable [phone] Christopher Quiroga MD Unavailable Claudia Yousif RN Unavailable Lance Simpson PA-C Unavailable +[phone] Sherri Kingston Unavailable +[phone] Delvin Bob MD Unavailable +[phone] Charleen Lynne MD Unavailable +[phone] Zoltan EricM Unavailable +[phone] Delvin Bob MD Unavailable +[phone] Maximo Mathis DO Unavailable + Pedro Winchester MD Unavailable [phone] Jovanni Dempsey MD Unavailable +[phone] Jovanni Dempsey MD Unavailable +[phone] Len Hooks MD Unavailable Delvin Bob MD Unavailable +[phone] Love Hernandez-C Unavailable Conrado Evans MD Unavailable +[phone] Love Hernandez PA-C Unavailable Gordy Nickerson MD Unavailable +[phone] Everardo Grant MD Unavailable Rey Billings MD Unavailable +[phone] Conrado Evans MD Unavailable +[phone] Delvin Lopez MD Unavailable [phone] Carissa Putnam RN Unavailable +[phone] Encounter Details Date Type Department Care Team (Late st Contact Info) Description 10/18/2020 MyC Medical Advice [facility] 9 [place] [address] Diana Parsons, RN Social History [...] on file 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 No / Unsure 09/26/2020 10:36 AM CDT documented as of this encounter Plan of Treatment Upcoming Encounters Date Type Department Care Team (Late Contact Info) Description 10/25/2024 10:00 AM CDT Virtual Visit [facility] & [facility] [address] [place] [address] Edith Brito 10/26/2024 8:30 AM CDT Lab [facility] Medical Ctr [facility] [address] [place] [address] [address] [place] [address] Conrado Evans MD 717 [facility] 353 [facility] 1932 [place], [place] 941754 documented as of this encounter Visit Diagnoses Not on filedocumented in this encounter Additional Health Concerns 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 The [place] Department of Health ([facility]) and CDC recommend that we screen this patient to prevent the spread of these organisms within our healthcare facility. Infection Prevention has placed orders for collecting a rectal swab for CP-SHIP RUNNER to evaluate if this patient is now a carrier. This patient was identified to have a low risk exposure in which case Contact Precautions are not necessary unless the patient tests positive. Screening is voluntary. Please notify Infection Prevention if the patient declines testing. Additional information and resources can be found on the Infection Prevention [facility] Sharepoint page. 08/04/2023 08/04/2023 02/02/2024 11:39 PM ROCK CLIMBING INSTRUCTOR Rule Out Parvovirus 09/28/2023 09/28/2023 10/05/19 24 11:41 PM CDT Assessment Noted Time PHQ-9 Depression Total Score: 11 020 2:07 PM ROCK CLIMBING INSTRUCTOR documented as of this encounter Care Teams Apprentice Lineman Third Step Relationship Specialty Start Date End Date Robert Marlye MD [facility] [address] [place] [address] PCP - General Family Practice 12/08/10 Tayo Lacey MD [facility] [address] [place] [address] Cardiology 08/30/14 Christopher Quiroga MD [place] [facility] [address] [facility] 200 [place], [place] [address] Oncology 07/02/16 Claudia Yousif, SONIA Nurse Coordinator Gastroenterology 02/09/17 09/16/22 Lance Simpson PA-C [address] [place] [address] 577735 Physician Service Crew Leader Physician Service Crew Leader 01/07/18 Sherri Kingston PA [address] [place] [address] Urology [place], [place] 324195 Physician Service Crew Leader Physician Service Crew Leader 12/21/18 Delvin Bob MD [address] [place] [address] 250 [place], [place] 751665 Internal Medicine 11/11/19 Charleen Lynne MD [address] [place] [address] 742095 Assigned Cancer Care Provider 12/23/19 03/23/21 Zoltan Eric DPM [address] [facility] 300 [place] [address] Assigned Musculoskeletal Provider 12/23/19 07/26/21 Delvin Bob MD 420 [facility] 250 [place] [address] Assigned PCP 12/08/19 02/14/22 Maximo Mathis DO 909 [place] [address] Assigned Neuroscience Provider 02/12/20 08/09/21 Pedro Winchester MD 6405 [place] [address] Assigned Heart and Vascular Provider 08/05/20 01/31/22 Jovanni Dempsey MD 600 [place], [place] 628652 Assigned Nephrology Provider 03/24/21 03/14/22 Jovanni Dempsey MD 600 [place], [place] 301252 Assigned Nephrology Provider 03/15/22 03/21/22 Len Hooks MD 717 [facility] 353 [place] [address] Assigned Nephrology Provider 03/22/22 12/26/22 Delvin Bob MD 420 [facility] 250 [place] [address] Assigned PCP 04/26/22 12/12/22 Love Hernandez PA-C 6363 [email or web address] 500 [place] [address] Physician Service Crew Leader Urology 12/01/22 Conrado Evans MD [address] [place] [address] [place] [address] Assigned Nephrology Provider 12/27/22 06/21/24 Love Hernandez PA-C 6363 [facility] [[email or web address] 500 [place] [address] Assigned Surgical Provider 01/17/23 [place] [address] [address] [place], [place] 181799 Assigned Gastroenterology Provider 07/23/23 Everardo Grant MD [address] [place] [address] 622255 Physician Infectious Diseases 09/23/23 Rey Billings MD [address] [place] [address] 392165 Assigned Infectious Disease Provider 10/23/23 Conrado Evans MD [address] [place] [address] Nephrology 08/25/24 Delvin Lopez MD [address] [place] [address] Nephrology 08/25/24 Carissa Putnam RN [facility] [address] [place] [address] Specialty Communications Manager Pharmacy 10/10/24 documented as of this encounter
--- OUTSIDE RECORDS SUMMARY | 2024-10-13 09:02 | XMS_ITS | Encounter Summary ---
Author Organization [facility] Address [address] [place] [address] Care Team Providers Care Tire Installer Name Role Phone Robert Marley MD Primary Care Provider [phone] Tayo Lacey MD Unavailable [phone] Christopher Quiroga MD Unavailable Claudia Yousif RN Unavailable Lance Simpson PA-C Unavailable +[phone] Sherri Kingston Unavailable +[phone] Delvin Bob MD Unavailable +[phone] Charleen Lynne MD Unavailable +[phone] Zoltan EricM Unavailable +[phone] Delvin Bob MD Unavailable +[phone] Maximo Mathis DO Unavailable + Pedro Winchester MD Unavailable +[phone] Jovanni Dempsey MD Unavailable +[phone] Jovanni Dempsey MD Unavailable +[phone] Len Hooks MD Unavailable Delvin Bob MD Unavailable +[phone] Love Hernandez-C Unavailable +[phone] Conrado Evans MD Unavailable +[phone] Love Hernandez PA-C Unavailable Gordy Nickerson MD Unavailable Everardo Grant MD Unavailable Rey Billings MD Unavailable +[phone] Conrado Evans MD Unavailable +[phone] Delvin Lopez MD Unavailable [phone] Carissa Putnam RN Unavailable +[phone] Encounter Details Date Type Department Care Team (Late st Contact Info) Description 11/14/2020 Orders Only [facility] [address] [place] [address] Chuck Darling MD [address] [place] [address] 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); Drug therapy; 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) Social History Tobacco Use Types Packs/Day Years Used Date Smoking Tobacco: Former Smokeless Tobacco: Never Alcohol Use Standard Drinks/Week Comments No 0 (1 standard drink = 0.6 oz pur e alcohol) PHQ-2 Answer Date Recorded PHQ-2 Score 2 04/05/2019 Comments No Sex and Gender Information Value Date Recorded Sex Assigned at Not on file Legal Sex Female 3:26 AM PMP CERTIFIED PROJECT MANAGER Gender Identity Not on file Sexual Orientation Not on file Occupation Industry Job Start Date Job End Date Not on file Not on file Not on file Not on file COVID-19 Exposure Response Date Recorded In the last month, have you been in contact with someone who was confirmed or suspected to have Coronavirus / COVID-19? No / Unsure 11/03/2020 12:35 PM CDT documented as of this encounter Plan of Treatment Upcoming Encounters Date Type Department Care Team (Late st Contact Info) Description 10/25/2024 10:00 AM CDT Virtual Visit [facility] [address] [place] [address] Edith Brito 10/26/2024 8:30 AM CDT [facility] [address] [address] [place] [address] Conrado Evans MD 717 [facility] 353 [facility] 1932 [place], [place] [address] documented as of this encounter Visit Diagnoses Diagnosis 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 Drug therapy Encounter for other specified aftercare 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) Pancreas replaced by transplant documented in this encounter Additional Health Concerns 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 The [place] Department of Health ([facility]) and CDC recommend that we screen this patient to prevent the spread of these organisms within our healthcare facility. Infection Prevention has placed orders for collecting a rectal swab for CP-JOINER APPRENTICE to evaluate if this patient is [...] Sharepoint page. 08/04/2023 08/04/2023 02/02/2024 11:39 PM PMP CERTIFIED PROJECT MANAGER Rule Out Parvovirus 09/28/2023 09/28/2023 10/05/19 24 11:41 PM CDT Assessment Noted Time PHQ-9 Depression Total Score: 11 020 2:07 PM PMP CERTIFIED PROJECT MANAGER documented as of this encounter Care Teams Tire Installer Relationship Specialty Start Date End Date Robert Marley MD [facility] [id number] [place] [address] PCP - General Family Practice 12/08/10 Tayo Lacey MD [facility] [id number] [place] [address] Cardiology 08/30/14 Christopher Quiroga MD [facility] [address] [facility] 200 [place] [address] Oncology 07/02/16 Claudia Yousif, RN Nurse Coordinator Gastroenterology 02/09/17 09/16/22 Lance Simpson PA-C [address] [place] [address] Physician Batch And Furnace Manager Physician Batch And Furnace Manager 01/07/18 Sherri Kingston PA [address] [place] [address] [place] [address] Physician Batch And Furnace Manager Physician Batch And Furnace Manager 12/21/18 Delvin Bob MD [address] [place] [address] 250 [place] [address] Internal Medicine 11/11/19 Charleen Lynne MD [address] [place] [address], [place] [address] Assigned Cancer Care Provider 12/23/19 03/23/21 Zoltan Eric DPM [address] [facility] [address] [place] [address] Assigned Musculoskeletal Provider 12/23/19 07/26/21 Delvin Bob MD 420 [facility] 250 [place] [address] Assigned PCP 12/08/19 02/14/22 Maximo Mathis DO [address] [place] [address] Assigned Neuroscience Provider 02/12/20 08/09/21 Pedro Winchester MD 6405 [place] [address] Assigned Heart and Vascular Provider 08/05/20 01/31/22 Jovanni Dempsey MD 600 [place], [place] 239622 Assigned Nephrology Provider 03/24/21 03/14/22 Jovanni Dempsey MD 600 [place], [place] 598752 Assigned Nephrology Provider 03/15/22 03/21/22 Len Hooks MD 717 [facility] 353 [place] [address] Assigned Nephrology Provider 03/22/22 12/26/22 Delvin Bob MD [address] [place] [address] 250 [place] [address] Assigned PCP 04/26/22 12/12/22 Love Hernandez PA-C 6363 [facility] S [facility] 500 [place], [place] [address] Physician Batch And Furnace Manager Urology 12/01/22 Conrado Evans MD [address] [place] [address] [address] Assigned Nephrology Provider 12/27/22 06/21/24 Love Hernandez PA-C 6363 [facility] 500 [place], [place] [address] Assigned Surgical Provider 01/17/23 [place] [address] [place] [address] Assigned Gastroenterology Provider 07/23/23 Everardo Grant MD [address] [place] [address] Physician Infectious Diseases 09/23/23 Rey Billings MD [address] [place] [address] 372475 Assigned Infectious Disease Provider 10/23/23 Conrado Evans MD [address] [place] [address] [address] Nephrology 08/25/24 Delvin Lopez MD [address] [place] [address] Nephrology 08/25/24 Carissa Putnam, RN [facility] 711 [place] [address] Specialty Developmental Psychologist Pharmacy 10/10/24 documented as of this encounter
--- OUTSIDE RECORDS SUMMARY | 2024-10-13 09:02 | XMS_ITS | Encounter Summary ---
Author Organization [facility] Address [address] [place] [address] Care Team Providers Care Gis Specialist Name Role Phone Robert Marley MD Primary Care Provider Chana Cheng MD Unavailable [phone] Anoop Garcia MD Unavailable Unavailable Barbara Carlson MD Unavailable Tayo Lacey MD Unavailable [phone] TuBasil shaikh MD Unavailable Charleen Lynne MD Unavailable [phone] Olimpia Williamson RN Unavailable [phone] Rin Dewitt RN Unavailable [phone] Rin Dewitt RN Unavailable [phone] Qian Rodriguez MD Unavailable [phone] Sherri Kingston Unavailable [phone] Olimpia Williamson RN Unavailable [phone] Olimpia Williamson RN Unavailable [phone] Christopher Quiroga MD Unavailable Claudia Yousif RN Unavailable Lance Simpson PA-C Unavailable [phone] Olimpia Williamson RN Unavailable [phone] Sherri Kingston Unavailable Delvin Bob MD Unavailable Charleen Lynne MD Unavailable [phone] ChapaShakira zelaya MD Unavailable Unav ailable Zoltan Eric ADRIANKerry Unavailable +[phone] Delvin Bob MD Unavailable [phone] Del Maximo Jaden LÓPEZ Unavailable + Sherri Kingston Unavailable Pedro Winchester MD Unavailable ChapaShakira zelaya MD Unavailable Unav ailable Jovanni Dempsey MD Unavailable Jvoanni Dempsey MD Unavailable [phone] Len Hooks MD Unavailable Delvin Bob MD Unavailable Love Hernandez PA-C Unavailable Conrado Evans MD Unavailable +[phone] Love Hernandez PA-C Unavailable [phone] Gordy Nickerson MD Unavailable Everardo Grant MD Unavailable Rey Billings MD Unavailable [phone] Conrado Evans MD Unavailable [phone] Delvin Lopez MD Unavailable [phone] Carissa Putnam RN Unavailable [phone] Encounter Details Date Type Department Care Team (Latest Contact Info) Description 11/06/2015 Anticoagulation Therapy Visit [facility] [address] [place] [address] Oyanagi, Monica A, RN Long-term (current) use of anticoagulants (Primary Dx); Deep vein thrombosis (DVT) (H); Pulmonary embolism with infarction (H) Social History Tobacco Use Types Packs/Day Years Used Date Smoking Tobacco: Former Smokeless Tobacco: Never Alcohol Use Standard Drinks/Week Comments No 0 (1 standard drink = 0.6 oz pur e alcohol) Comments No Sex and Gender Information Value Date Recorded Sex Assigned at Not on file Legal Sex Female 3:26 AM HAND SCRAPER Gender Identity Not on file Sexual Orientation Not on file Occupation Industry Job Start Date Job End Date Not on file Not on file Not on file Not on file documented as of this encounter Plan of Treatment Upcoming Encounters Date Type Department Care Team (Late st Contact Info) Description 10/25/2024 10:00 AM CDT Virtual Visit [facility] [address] [place] [phone] Edith Brito 10/26/2024 8:30 AM CDT Lab [facility] [address] [facility] [address] [place] [address] Conrado Evans MD 717 [facility] 353 [facility] 1932 [place], [place] 3484[address] documented as of this encounter Visit Diagnoses Diagnosis Long-term (current) use of anticoagulants- Primary Encounter for long-term (current) use of anticoagulants Deep vein thrombosis (DVT) (H) Acute venous embolism and thrombosis of unspecified deep vessels of lower extremity Pulmonary embolism with infarction (H) Other pulmonary embolism and infarction documented in this encounter Additional Health Concerns [...] Out COVID-19 04/19/2020 04/19/2020 04/19/2020 1:56 PM HAND SCRAPER Rule Out COVID-19 04/19/2020 04/20/2020 04/20/2020 6:34 AM HAND SCRAPER Rule Out COVID-19 12/15/2020 12/15/2020 12/15/2020 4:33 PM CDT Rule Out C-difficile 01/06/2021 01/08/2021 021 11:43 AM HAND SCRAPER Rule Out C-difficile 07/10/2021 07/10/2021 022 5:56 PM CDT Rule Out C-difficile 07/16/2023 07/16/2023 024 9:21 PM CDT Rule Out Parvovirus 07/16/2023 07/16/2023 07/19/19 24 12:29 PM CDT Parvovirus 07/16/2023 07/16/2023 10/03/2024 4:22 PM CDT [id number] Comment:This patient was exposed to a person with a known CP-OPERATING ROOM RN and has the potential for having acquired this pathogen of concern. The [place] Department of Health ([facility]) and CDC recommend that we screen this patient to prevent the spread of these organisms within our healthcare facility. Infection Prevention has placed orders for collecting a rectal swab for CP-OPERATING ROOM RN to evaluate if this patient is now a carrier. This patient was identified to have a low risk exposure in which case Contact Precautions are not necessary unless the patient tests positive. Screening is voluntary. Please notify Infection Prevention if the patient declines testing. Additional information and resources can be found on the Infection Prevention MDRO Sharepoint page. 08/04/2023 08/04/2023 02/02/2024 11:39 PM HAND SCRAPER Rule Out Parvovirus 09/28/2023 09/28/2023 10/05/19 11:41 PM CDT documented as of this encounter Care Teams Gis Specialist Relationship Specialty Start Date End Date Robert Marley MD [address] [address] PCP - General Family Practice 12/08/10 Chana Cheng MD [facility] [address] [place] [address] Nephrology 05/26/14 11/12/15 Anoop Garcia MD [facility] [address] [place] [address] Transplant 05/26/14 02/02/18 Barbara Carlson MD [address] [place] [address] Referring Physician Nephrology 08/30/14 11/12/15 Tayo Lacey MD [address] [place] [address] Cardiology 08/30/14 Basil Plummer MD 909 [place] [address] Neurology 05/09/15 04/23/16 Charleen Lynne MD 909 [place], [place] 6[address] MD Oncology 06/14/15 12/19/18 Olimpia Williamson, RN Nurse Coordinator Oncology 06/14/15 04/23/16 Rin Dewitt RN Nurse Coordinator Neurology 07/24/15 04/23/16 Rin Dewitt RN Nurse Coordinator Neurology 10/25/15 10/12/17 Qian Rodriguez MD 717 [facility] 353 [place], [place] [address] Nephrology 11/13/15 06/16/16 Sherri Kingston PA 420 [facility] 394 [place], [place] [address] Physician Automobile Rental Representative Physician Automobile Rental Representative 03/20/16 Olimpia Williamson, RN Nurse Coordinator Oncology 06/26/16 06/26/16 Olimpia Williamson, RN Nurse Coordinator Oncology 06/26/16 06/16/18 Christopher Quiroga MD [facility] [address] [place] [address] Oncology 07/02/16 Claudia Yousif RN Nurse Coordinator Gastroenterology 02/09/17 09/16/22 Lance Simpson PA-C [address] [place] [address] Physician Automobile Rental Representative Physician Automobile Rental Representative 01/07/18 Olimpia Williamson RN Specialty Pre Press Operator Hematology & Oncology 05/06/18 12/19/18 Sherri Kingston PA [address] [place] [address] Urology [place], [place] 346785 Physician Automobile Rental Representative Physician Automobile Rental Representative 12/21/18 Delvin Bob MD [address] [place] [address] 526555 Internal Medicine 11/11/19 Charleen Lynne MD [address] [place] [address] 977225 Assigned Cancer Care Provider 12/23/19 03/23/21 Shakira Chapa MD [place]CTIVE IN [place] 06/29/2020 Assigned Surgical Provider 12/23/19 07/14/20 Zoltan Eric DPM [address] [facility] [address] [place] [address] Assigned Musculoskeletal Provider 12/23/19 07/26/21 Delvin Bob MD [address] [place] [address] Assigned PCP 12/08/19 02/14/22 Maximo Mathis DO 909 [place] [address] Assigned Neuroscience Provider 02/12/20 08/09/21 Sherri Kingston PA 909 [facility] [place] [address] Assigned Surgical Provider 07/15/20 10/06/20 Pedro Winchester MD 6405 [place], [place] 527[address] Assigned Heart and Vascular Provider 08/05/20 01/31/22 Shakira Chapa MD [place] 06/29/2020 Assigned Surgical Provider 10/07/20 10/13/20 Jovanni Dempsey MD 600 [place], [place] 217442 Assigned Nephrology Provider 03/24/21 03/14/22 Jovanni Dempsey MD 600 [place], [place] 431652 Assigned Nephrology Provider 03/15/22 03/21/22 Len Hooks MD 717 [facility] 353 [place] [address] Assigned Nephrology Provider 03/22/22 12/26/22 Delvin Bob MD 420 [facility] 250 [place] [address] Assigned PCP 04/26/22 12/12/22 Love Hernandez PA-C [facility] [address] 500 [place] [address] Physician Automobile Rental Representative Urology 12/01/22 Conrado Evans MD [address] [place] [address] 353 [facility] [address] [place] [address] Assigned Nephrology Provider 12/27/22 06/21/24 Love Hernandez PA-C [address] [place], [place] [address] Assigned Surgical Provider 01/17/23 [place] [address] [address], [place] [address] Assigned Gastroenterology Provider 07/23/23 Everardo Grant MD [address] [place] [address] 048405 Physician Infectious Diseases 09/23/23 Rey Billings MD [address] [place] [address] 007475 Assigned Infectious Disease Provider 10/23/23 Conrado Evans MD [address] [place] [address] Nephrology 08/25/24 Delvin Lopez MD [address] [place] [address] 083185 Nephrology 08/25/24 Carissa Putnam RN [facility] [address] [place] [address] Specialty Pre Press Operator Pharmacy 10/10/24 10/10/24 documented as of this encounter
--- OUTSIDE RECORDS SUMMARY | 2024-10-13 09:02 | XMS_ITS | Encounter Summary ---
Author Organization [facility] Address [address] [place] [address] Care Team Providers Care Credit Risk Officer Name Role Phone Robert Marley MD Primary Care Provider [phone] Tayo Lacey MD Unavailable [phone] Christopher Quiroga MD Unavailable Claudia Yousif RN Unavailable Lance SimpsonC Unavailable +[phone] Sherri Kingston Unavailable +[phone] Delvin Bob MD Unavailable +[phone] Charleen Lynne MD Unavailable [phone] Shakira Chapa MD Unavailable Unav ailable Zoltan Eric DPM Unavailable +[phone] Delvin Bob MD Unavailable +[phone] Maximo Mathis DO Unavailable + Sherri Kingston Unavailable [phone] Pedro Winchester MD Unavailable [phone] Shakira Chapa MD Unavailable Unav ailable Jovanni Dempsey MD Unavailable +[phone] Jovanni Dempsey MD Unavailable +[phone] Len Hooks MD Unavailable Delvin Bob MD Unavailable Love Hernandez PA-C Unavailable [phone] Conrado Evans MD Unavailable +[phone] Love Hernandez PA-C Unavailable [phone] Gordy Nickerson MD Unavailable +[phone] Everardo Grant MD Unavailable Rey Billings MD Unavailable +[phone] Conrado Evans MD Unavailable +[phone] Delvin Lopez MD Unavailable [phone] Carissa Putnam RN Unavailable +[phone] Encounter Details Date Type Department Care Team (Late Contact Info) Description 06/25/2020 MyC Medical Advice [facility] 9 [place] [address] Angela Villela, EMILY Social History Tobacco Use Types Packs/Day Years Used Date Smoking Tobacco: Former Smokeless Tobacco: Never Alcohol Use Standard Drinks/Week Comments No 0 (1 standard drink = 0.6 oz pur e alcohol) PHQ-2 Answer Date Recorded PHQ-2 Score 2 04/05/2019 Comments No Sex and Gender Information Value Date Recorded Sex Assigned at Not on file Legal Sex Female 3:26 AM CORE DIPPER Gender Identity Not on file Sexual Orientation Not on file Occupation Industry Job Start Date Job End Date Not on file Not on file Not on file Not on file COVID-19 Exposure Response Date Recorded In the last month, have you been in contact with someone who was confirmed or suspected to have Coronavirus / COVID-19? No / Unsure 06/25/2020 12:02 PM CDT documented as of this encounter Plan of Treatment Upcoming Encounters Date Type Department Care Team (Late Contact Info) Description 10/25/2024 10:00 AM CDT Virtual Visit [facility] [address] [place] [address] Edith Brito 10/26/2024 8:30 AM CDT [facility] [address] [facility] [address] [place] [address] Conrado Evans MD 717 [facility] 353 [facility] [address] [place] [address] documented as of this encounter Visit Diagnoses Not on filedocumented in this encounter Additional Health Concerns 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 The [place] Department of Health ([facility]) and CDC recommend that we screen this patient to prevent the spread of these organisms within our healthcare facility. Infection Prevention has placed orders for collecting a rectal swab for CP-SIGN WRITER HAND to evaluate if this patient is [...] Sharepoint page. 08/04/2023 08/04/2023 02/02/2024 11:39 PM CORE DIPPER Rule Out Parvovirus 09/28/2023 09/28/202320 24 11:41 PM CDT Assessment Noted Time PHQ-9 Depression Total Score: 11 020 2:07 PM CORE DIPPER documented as of this encounter Care Teams Credit Risk Officer Relationship Specialty Start Date End Date Robert Marley MD [facility] [address] [place] [address] PCP - General Family Practice 12/08/10 Tayo Lacey MD [facility] [address] [place] [address] Cardiology 08/30/14 Christopher Quiroga MD [facility] [address] [facility] 200 [place] [address] Oncology 07/02/16 Claudia Yousif, RN Nurse Coordinator Gastroenterology 02/09/17 09/16/22 Lance Simpson PA-C [address] [place] [address] Physician Operater Physician Operater 01/07/18 Sherri Kingston PA [address] [place] [address] Urology [place], [place] [address]95 Physician Operater Physician Operater 12/21/18 Delvin Bob MD [address] [place] [address] 250 [place], [place] 89[address] Internal Medicine 11/11/19 Charleen Lynne MD [address] [place] [address] 895675 Assigned Cancer Care Provider 12/23/19 03/23/21 Shakira Chapa MD I[place]IVE IN [place] 06/29/2020 Assigned Surgical Provider 12/23/19 Zoltan Eric DPM [address] [facility] [address] [place] [address] Assigned Musculoskeletal Provider 12/23/19 07/26/21 Delvin Bob MD [address] [place] [address] 250 [place] [address] Assigned PCP 12/08/19 02/14/22 Maximo Mathis DO 909 [place] [address] Assigned Neuroscience Provider 02/12/20 08/09/21 Sherri Kingston PA 909 [facility] Urology [place], [place] 195125 Assigned Surgical Provider 07/15/2010/06/20 Pedro Winchester MD 6405 [place] [address] Assigned Heart and Vascular Provider 08/05/20 01/31/22 Shakira Chapa MD [place] 06/29/2020 Assigned Surgical Provider 10/07/20 Jovanni Dempsey MD [address] [place] [address] Assigned Nephrology Provider 03/24/21 03/14/22 Jovanni Dempsey MD [address] [place] [address] Assigned Nephrology Provider 03/15/22 03/21/22 Lne Hooks MD 717 [facility] 353 [place] [address] Assigned Nephrology Provider 03/22/22 12/26/22 Delvin Bob MD [address] [place] [address] 250 [place], [place] [address]145 Assigned PCP 04/26/22 12/12/22 Love Hernandez PA-C 6363 [facility] 500 [place] [address] Physician Operater Urology 12/01/22 Conrado Evans MD 717 [facility] 353 [facility] [address] [place] [address] Assigned Nephrology Provider 12/27/22 06/21/24 Love Hernandez PA-C 6363 [facility] 500 [place], [place] 8[address]15 Assigned Surgical Provider 01/17/23 [place] [address] [address], [place] [address] Assigned Gastroenterology Provider 07/23/23 Everardo Grant MD 909 [place], [place] [address]365 Physician Infectious Diseases 7/24/24 Rey Billings MD 909 [place], [place] [address]145 Assigned Infectious Disease Provider 10/23/23 Conrado Evans MD 717 [facility] [address] 353 [facility] 1932 [place], [place] [address] Nephrology 08/25/24 Delvin Lopez MD [address] [place] [address] 31054455 Nephrology 08/25/24 Carissa Putnam RN [facility] 711 [place], [place] [address] Specialty Drawing Press Operator Pharmacy 10/10/24 documented as of this encounter
--- OUTSIDE RECORDS SUMMARY | 2024-10-13 09:02 | XMS_ITS | Encounter Summary ---
Author Organization [facility] Address [address] [place] [address] Care Team Providers Care Tire Classifier Name Role Phone Robert Marley MD Primary Care Provider Chana Cheng MD Unavailable [phone] Anoop Garcia MD Unavailable Unavailable Barbara Carlson MD Unavailable Tayo Lacey MD Unavailable [phone] TuBasil shaikh MD Unavailable Charleen Lynne MD Unavailable [phone] Olimpia Williamson RN Unavailable [phone] Rin Dewitt RN Unavailable [phone] Rin Dewitt RN Unavailable [phone] Qian Rodriguez MD Unavailable [phone] Sherri Kingston Unavailable [phone] Olimpia Williamson RN Unavailable [phone] Olimpia Williamson RN Unavailable [phone] Christopher Quiroga MD Unavailable Claudia Yousif RN Unavailable Lance Simpson PA-C Unavailable [phone] Olimpia Williamson RN Unavailable [phone] Sherri Kingston Unavailable Delvin Bob MD Unavailable Charleen Lynne MD Unavailable [phone] CahpaShakira zelaya MD Unavailable Unav ailable Zoltan Eric ARDIANKerry Unavailable [phone] Delvin Bob MD Unavailable [phone] [address] Jaden LÓPEZ Unavailable + Sherri Kingston Unavailable Pedro Winchester MD Unavailable ChapaShakira zelaya MD Unavailable Unav ailable Jovanni Dempsey MD Unavailable [phone] Jovanni Dempsey MD Unavailable [phone] Len Hooks MD Unavailable Delvin Bob MD Unavailable Love Hernandez PA-C Unavailable [phone] Conrado Evans MD Unavailable [phone] Love Hernandez PA-C Unavailable [phone] Gordy Nickerson MD Unavailable Everardo Grant MD Unavailable Rey Billings MD Unavailable [phone] Conrado Evans MD Unavailable [phone] Delvin Lopez MD Unavailable [phone] Carissa Putnam RN Unavailable [phone] Encounter Details Date Type Department Care Team (Latest Contact Info) Description 11/06/2015 Anticoagulation Therapy Visit [facility] [address] [place] [phone] Oyanagi, Monica A, RN Long-term (current) [...] on file Legal Sex Female 3:26 AM BULWARK CARPENTER Gender Identity Not on file Sexual Orientation [...] [facility] [address] [place] [phone] Edith Brito 10/26/2024 8:[address] [facility] [address] [facility] [address] [place] [phone] Conrado Evans MD [address]17 [facility] 353 [facility] [address] [place], [place] [address] documented as of this encounter Visit Diagnoses [...] on-call for review. Meena Torres [facility] Infection Prevention 07/11/2019 at 3:56 PM [...] Out COVID-19 04/19/2020 04/19/2020 04/19/2020 1:56 PM BULWARK CARPENTER Rule Out COVID-19 04/19/2020 04/20/2020 04/20/2020 6:34 AM BULWARK CARPENTER Rule Out COVID-19 12/15/2020 12/15/2020 12/15/2020 4:33 PM CDT Rule Out C-difficile 01/06/2021 01/08/2021 021 11:43 AM BULWARK CARPENTER Rule Out C-difficile 07/10/2021 07/10/2021 022 5:56 PM CDT Rule Out C-difficile 07/16/2023 07/16/2023 024 9:21 PM CDT Rule Out Parvovirus 07/16/2023 07/16/2023 07/19/19 24 12:29 PM CDT Parvovirus 07/16/2023 07/16/2023 10/03/2024 4:22 PM CDT [id number] Comment:This patient was exposed to a person with a known CP-SUPERVISOR EDUCATION and has the potential for having acquired this pathogen of concern. The [place] Department of Health ([facility]) and CDC recommend that we screen this patient to prevent the spread of these organisms within our healthcare facility. Infection Prevention has placed orders for collecting a rectal swab for CP-SUPERVISOR EDUCATION to evaluate if this patient is now a carrier. This patient was identified to have a low risk exposure in which case Contact Precautions are not necessary unless the patient tests positive. Screening is voluntary. Please notify Infection Prevention if the patient declines testing. Additional information and resources can be found on the Infection Prevention [employer] Sharepoint page. 08/04/2023 08/04/2023 02/02/2024 11:39 PM BULWARK CARPENTER Rule Out Parvovirus 09/28/2023 09/28/2023 10/05/19 11:41 PM CDT documented as of this encounter Care Teams Tire Classifier Relationship Specialty Start Date End Date Robert Marley MD [address] [address] PCP - General Family Practice 12/08/10 Chana Cheng MD [facility] [address] [place] [address] Nephrology 05/26/14 11/12/15 Anoop Garcia MD [facility] [address] [place] [address] Transplant 05/26/14 02/02/18 Barbara Carlson MD [address] [place] [address] Referring Physician Nephrology 08/30/14 11/12/15 Tayo Lacey MD [address] [place] [address] Cardiology 08/30/14 Basil Plummer MD [address] [place] [address] Neurology 05/09/15 04/23/16 Charleen Lynne MD [address] [place], [place] 117[address] MD Oncology 06/14/15 12/19/18 Olimpia Williamson, RN Nurse Coordinator Oncology 06/14/15 04/23/16 Rin Dewitt RN Nurse Coordinator Neurology 07/24/15 04/23/16 Rin Dewitt RN Nurse Coordinator Neurology 10/25/15 10/12/17 Qian Rodriguez MD [address]17 [facility] [address] [place], [place] [address] Nephrology 11/13/15 06/16/16 Sherri Kingston PA [address] [facility] [address] [place], [place] [address] Physician Chief Quality Officer Physician Chief Quality Officer 03/20/16 Olimpia Williamson, RN Nurse Coordinator Oncology 06/26/16 06/26/16 Olimpia Williamson, RN Nurse Coordinator Oncology 06/26/16 06/16/18 Christopher Quiroga MD [facility] [address] [place] [address] Oncology 07/02/16 Claudia Yousif RN Nurse Coordinator Gastroenterology 02/09/17 09/16/22 Lance Simpson PA-C [address] [place] [address] Physician Chief Quality Officer Physician Chief Quality Officer 01/07/18 Olimpia Williamson RN Specialty Chef Instructor Hematology & Oncology 05/06/18 12/19/18 Sherri Kingston PA [address] [place] [address] Urology [place], [place] [address] Physician Chief Quality Officer Physician Chief Quality Officer 12/21/18 Delvin Bob MD [address] [place] [address] [phone] Internal Medicine 11/11/19 Charleen Lynne MD [address] [place] [address] [id number] Assigned Cancer Care Provider 12/23/19 03/23/21 Shakira Chapa MD [facility] [place] 06/29/2020 Assigned Surgical Provider 12/23/19 07/14/20 Zoltan Eric DPM [address] [facility] [address] [place] [address] Assigned Musculoskeletal Provider 12/23/19 07/26/21 Delvin Bob MD [address] [place] [address] Assigned PCP 12/08/19 02/14/22 Maximo Mathis DO [address] [place] [address] Assigned Neuroscience Provider 02/12/20 08/09/21 Sherri Kingston PA 909 [facility] [address] Assigned Surgical Provider 07/15/20 10/06/20 Pedro Winchester MD [address] [place], [place] [address] Assigned Heart and Vascular Provider 08/05/20 01/31/22 Shakira Chapa MD [place]IVE [place] OF 06/29/2020 Assigned Surgical Provider 10/07/20 10/13/20 Jovanni Dempsey MD [address] [place], [place] [address]37[address] Assigned Nephrology Provider 03/24/21 03/14/22 Jovanni Dempsey MD [address] [place], [place] 5204[address] Assigned Nephrology Provider 03/15/22 03/21/22 Len Hooks MD 717 [facility] [address] [place] [address] Assigned Nephrology Provider 03/22/22 12/26/22 Delvin Bob MD [address] [facility] [address] [place] [address] Assigned PCP 04/26/22 12/12/22 Love Hernandez PA-C [address] [facility] [address] [place] [address] Physician Chief Quality Officer Urology 12/01/22 Conrado Evans MD [address] [place] [address] 353 [facility] [address] [place] [address] Assigned Nephrology Provider 12/27/22 06/21/24 Love Hernandez PA-C [address] [place], [place] [address] Assigned Surgical Provider 01/17/23 [place] [address] [address], [place] [address] Assigned Gastroenterology Provider 07/23/23 Everardo Grant MD [address] [place] [address] 980815 Physician Infectious Diseases 09/23/23 Rey Billings MD [address] [place] [address] 932915 Assigned Infectious Disease Provider 10/23/23 Conrado Evans MD [address] [place] [address] Nephrology 08/25/24 Delvin Lopez MD [address] [place] [address] 3699[address] Nephrology 08/25/24 Carissa Putnam RN [facility] [address] [address] Specialty Chef Instructor Pharmacy 10/10/24 10/10/24 documented as of this encounter
--- NOTE | 2024-10-13 09:27 | ED.GENADULT ---
HPI - General Adult General Date Seen: 10/13/24 Chief complaint: Abdominal Pain Stated complaint: Kidney pain Time Seen by Provider: 10/13/24 09:27 History of Present Illness HPI narrative: 58-year-old female with a past medical history of chronic kidney disease stage 4, type 1 diabetes with diabetic ulcers and toe amputation. Status post pancreas transplant, history of DVT, PE,, history of hemolytic anemia, diastolic CHF, coronary disease, hyperlipidemia, restless legs, hypothyroidism, GERD, depression/anxiety. She has a history of hysterectomy, left toe amputation. Kidney and pancreas transplant at [facility], 2013. She gets her care through [facility].. Per [facility] medical record, current medication list includes Apixaban 5 mg b.i.d. Aspirin 81 mg daily Wellbutrin XL 150 mg daily Welchol 625 mg Ferrous gluconate 324 Gabapentin 300 mg Pantoprazole 40 mg Creon Rosuvastatin Serial I miss Tack line miss Topamax Tramadol According to [facility] care link she has a scanned in consult from Nephrology at the [facility] on 10/10 It looks like she has been grew having gradually trending up creatinine up to 1.9 with proteinuria. She is on tach or DONATO since ear alignment is. Plan was to reduce sirolimus does because of worsening proteinuria. She reports that she has a known history of anemia. Baseline hemoglobin apparently around 9. 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 Recently her hemoglobin was down to 6 and so she is actually scheduled for an outpatient blood transfusion to be done here in [place] this morning. She came to the ER this morning because at around 7:00 a.m. she was urinating and developed rather abrupt onset of severe lower abdominal pain in her suprapubic and left lower quadrant region with new swelling. This is the area of her transplanted kidney. She recalls that she had a biopsy there last week. She is on Eliquis for history of DVT/PE. She did not miss any cloudy urine or bloody urine. She has not had a fever. She was nauseous and threw up once (nonbloody) bowel movements been normal. No previous trouble with urination. No previous abdominal pain prior to 7:00 a.m. this morning. No known injury. She has a little bit weak and lightheaded. Having lot of pain and needs pain medication. Apparently has an intolerance to Dilaudid which cause low blood pressure when she had high doses of Dilaudid in the past. Related Data Home Medications ?Medication ?Instructions ?Recorded ?Confirmed bupropion HCl 150 mg 24 hr tablet, 150 mg PO DAILY 07/14/22 10/13/24 extended release (Wellbutrin XL) cholecalciferol (vitamin D3) 25 25 mcg PO DAILY 07/14/22 10/13/24 mcg (1,000 unit) capsule cholestyramine (with sugar) 4 gram ea PO 07/14/22 oral powder (Questran) citalopram 20 mg tablet (Celexa) 20 mg PO DAILY 07/14/22 10/13/24 cyanocobalamin (vitamin B-12) 1,000 mcg PO DAILY 07/14/22 10/13/24 1,000 mcg capsule gabapentin 300 mg capsule 600 mg PO BID 07/14/22 10/13/24 wdzzey-pohyzewf-pwsahyr 2 cap PO Q8H 07/14/22 10/13/24 12,000-38,000-60,000 unit capsule,delayed rel (Creon) ondansetron 4 mg disintegrating 4 mg PO Q8H PRN 07/14/22 10/13/24 tablet pantoprazole 40 mg tablet,delayed 40 mg PO DAILY 07/14/22 10/13/24 release rosuvastatin 40 mg tablet 40 mg PO DAILY 07/14/22 10/13/24 sirolimus 1 mg tablet 3 mg PO DAILY 07/14/22 10/13/24 tacrolimus 1 mg capsule, 4 mg PO Q12H 07/14/22 10/13/24 immediate-release (Prograf) topiramate 50 mg tablet (Topamax) 50 mg PO BID 07/14/22 10/13/24 apixaban 5 mg tablet (Eliquis) 5 mg PO BID 08/25/23 10/13/24 Allergies Allergy/AdvReac Type Severity Reaction Status Date / Time hydromorphone (From Dilaudid) Allergy Mild Unknown Verified 10/13/24 08:57 [facility] Medical History Chronic kidney disease, stage 4 (severe) ?N18.4 - Chronic kidney disease, stage 4 (severe) (ICD-10) Diabetic ulcer of left heel associated with type 2 diabetes mellitus, with fat layer exposed ?E11.621 - Type 2 diabetes mellitus with foot ulcer (ICD-10) ?L97.422 - Non-pressure chronic ulcer of left heel and midfoot with fat layer exposed (ICD-10) Other autoimmune hemolytic anemia ?D59.19 - Other autoimmune hemolytic anemia (ICD-10) Adrenal insufficiency ?E27.40 - Unspecified adrenocortical insufficiency (ICD-10) Neurogenic orthostatic hypotension ?G90.3 - Multi-system degeneration of the autonomic nervous system (ICD-10) Acute respiratory failure with hypoxia ?J96.01 - Acute respiratory failure with hypoxia (ICD-10) Anticoagulation monitoring, INR range 2-3 ?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 (ICD-10) DVT of deep femoral vein ?I82.419 - Acute embolism and thrombosis of unspecified femoral vein (ICD-10) Hemolytic anemia ?D58.9 - Hereditary hemolytic anemia, unspecified (ICD-10) Acute on chronic diastolic (congestive) heart failure ?I50.33 - Acute on chronic diastolic (congestive) heart failure (ICD-10) CAD (coronary artery disease) ?I25.10 - Atherosclerotic heart disease of [place] coronary artery without angina pectoris (ICD-10) Insomnia, unspecified ?G47.00 - Insomnia, unspecified (ICD-10) Mixed hyperlipidemia ?E78.2 - Mixed hyperlipidemia (ICD-10) Restless leg syndrome ?G25.81 - Restless legs syndrome (ICD-10) Vitamin D deficiency ?E55.9 - Vitamin D deficiency, unspecified (ICD-10) Hypothyroidism ?E03.9 - Hypothyroidism, unspecified (ICD-10) Depression with anxiety ?F41.8 - Other specified anxiety disorders (ICD-10) GERD (gastroesophageal reflux disease) ?K21.9 - Gastro-esophageal reflux disease without esophagitis (ICD-10) Surgical History Hx of vitrectomy ?Z98.890 - Other specified postprocedural states (ICD-10) Hx of cardiac catheterization ?Z98.890 - Other specified postprocedural states (ICD-10) Hx of hysterectomy ?Z90.710 - Acquired absence of both cervix and uterus (ICD-10) Hx of carpal tunnel repair ?Z98.890 - Other specified postprocedural states (ICD-10) History of incisional hernia repair ?Z98.890 - Other specified postprocedural states (ICD-10) ?Z87.19 - Personal history of other diseases of the digestive system (ICD-10) History of amputation of lesser toe of left foot ?Z89.422 - Acquired absence of other left toe(s) (ICD-10) Status post simultaneous kidney and pancreas transplant ?Z94.0 - Kidney transplant status (ICD-10) ?Z94.83 - Pancreas transplant status (ICD-10) Social History Smoking Status: Former smoker What tobacco products do you use: cigarettes Smoking quit date/years: >15 years ago Do you use any of these nicotine containing products: None Second hand tobacco smoke exposure: No How often do you have a drink containing alcohol: never How often do you have six or more drinks on one occasion: Never AUDIT-C Alcohol total score: 0 Non-prescribed substance use: denies use Caffeine: Yes Are you using contraception or practicing any form of control: No Exam Narrative: Exam Narrative: Constitutional: Appears well-developed . She looks frail and uncomfortable and does appear chronically ill. HENT: Head: Atraumatic. Nose: Nose normal. Mouth/Throat: Oral mucosa is clear and moist. no trismus. Pharynx normal. Tonsils symmetric. No tonsillar enlargement, erythema, or exudate. Eyes: Conjunctivae normal. EOM normal. Pupils equal, round, and reactive to light. No scleral icterus. Neck: Normal range of motion. Neck supple. No tracheal deviation present. Cardiovascular: Normal rate, regular rhythm. No gallop. No friction rub. No murmur heard. Symmetric radial artery pulses Pulmonary/Chest: Effort normal. No stridor. No respiratory distress. No wheezes. No rales. No rhonchi . No tenderness. Abdominal: Soft. Bowel sounds normal. No distension. No mass. Marked left lower quadrant and lower periumbilical tenderness with apparent swelling which corresponds to the area of her transplanted kidney.. No definite mass. No bruising. I do not see any visible skin puncture from the biopsy. Long healed midline incision. No right-sided or upper tenderness. No CVA tenderness No rebound. No guarding. Musculoskeletal: RUE: Normal range of motion. No tenderness. No deformity LUE: Normal range of motion. No tenderness. No deformity RLE: Normal range of motion. No edema. No tenderness. No deformity LLE: Normal range of motion. No edema. No tenderness. No deformity Neurological: Alert and oriented to person, place, and time. Normal strength. CN II-VII intact. No sensory deficit. GCS eye subscore is 4. GCS verbal subscore is 5. GCS motor subscore is 6. Normal coordination Skin: Skin is warm and dry. No rash noted. No pallor. Normal capillary refill. Psychiatric: Normal mood. Normal affect. Const: Vital Signs, click to edit/add: Vital Signs - 24 hr 10/13/24 08:54 Temperature 98 F Pulse Rate [Right Pulse Oximeter] 76 Respiratory Rate 18 Blood Pressure [Ri ght Upper Arm] 93/50 L Pulse Oximetry 92 Oxygen Delivery Me thod Room Air Course Course ED Course: Multiple bedside rechecks and re-evaluations. Patient did become hypoxic after 1st dose of fentanyl. Blood pressure remained low normal but stable. Heart rate in the 70s. Reevaluation(s) Reevaluation #1: Discussed with radiology by phone about the critical findings on her CT per Reevaluation #2: Discussed with [facility], accepted by the ER doctor. Vital Signs Vital signs: Initial Vital Signs Temperature 98 F 10/13/24 08:54 Temperature Source Temporal Artery Scan 10/13/24 08:54 Pulse Rate 76 10/13/24 08:54 Pulse Rhythm Regular 10/13/24 08:54 Pulse Strength 3+ Normal 10/13/24 08:54 Respiratory Rate 18 10/13/24 08:54 Blood Pressure 93/50 L 10/13/24 08:54 Blood Pressure Mean 64 L 10/13/24 08:54 Blood Pressure Position High-Fowlers 10/13/24 08:54 Pulse Oximetry 92 10/13/24 08:54 Oxygen Delivery Method Room Air 10/13/24 08:54 Vital Signs Temperature 98 F 10/13/24 08:54 Pulse Rate 76 10/13/24 08:54 Respiratory Rate 18 10/13/24 08:54 Blood Pressure 93/50 L 10/13/24 08:54 Pulse Oximetry 92 10/13/24 08:54 Oxygen Delivery Method Room Air 10/13/24 08:54 Temperature 98 F 10/13/24 08:54 Pulse Rate 76 10/13/24 08:54 Respiratory Rate 18 10/13/24 08:54 Blood Pressure 93/50 L 10/13/24 08:54 Pulse Oximetry 92 10/13/24 08:54 Oxygen Delivery Method Room Air 10/13/24 08:54 Medications Administered Medications: Discontinued Medications Generic Name Dose Route Start Last Admin Trade Name Tiffany PRN Reason Stop Dose Admin Fentanyl 50 mcg 10/13/24 09:39 10/13/24 10:21 Fentanyl 100 Mcg/2 Ml Inj IVP 10/13/24 09:40 50 mcg ONCE ONE Administration Fentanyl 25 mcg 10/13/24 10:41 10/13/24 11:00 Fentanyl 100 Mcg/2 Ml Inj IVP 10/13/24 10:42 25 mcg ONCE ONE Administration Sodium Chloride 1,000 mls @ 1,000 mls/hr 10/13/24 09:45 10/13/24 10:22 0.9 % Sodium Chloride 1000 Ml IV 10/13/24 10:44 1,000 mls/hr .Q1H LAURA Administration Prothrombin Complex Concent ( 60 mls @ 180 mls/hr 10/13/24 10:29 10/13/24 11:06 Human) 1,500 unit/ IV IV 10/13/24 10:48 180 mls/hr Miscellaneous Supplies ONCE ONE Administration Ondansetron HCl 4 mg 10/13/24 09:39 10/13/24 10:22 Ondansetron 2 Mg/Ml Inj IVP 10/13/24 09:40 4 mg ONCE ONE Administration Medical Decision Making [facility] Narrative Medical decision making narrative: Patient presented with acute onset of severe lower abdominal pain around her transplant kidney. She had had a biopsy a few days ago and also is on Eliquis. Initial concern was for possible post biopsy bleeding. Also differential would include acute rejection, UTI, or other causes of lower abdominal pain such as colitis, diverticulitis, perforation, or abscess. Patient onset patient's initial presentation I ordered IV fentanyl, Zofran, and a bolus of fluid. Patient did develop some respiratory compromise because of the 50 mcg dose fentanyl. Pain was only moderately improved. She is on nasal cannula but otherwise breathing appropriately and is protecting her airway. At this point she does not need CPAP or BiPAP or endotracheal intubation. I will order a 2nd dose of fentanyl, 25 mcg, for pain. The patient's baseline hemoglobin was reported to be around 9 and was down to 6 the other day so she actually has already been scheduled for a outpatient transfusion to be done today. Fortunately she already has a crossmatch in the system. CT scan was obtained. I received a phone call from Radiology to inform me that the patient did have signs of a fairly large perinephric hematoma measuring 10 x 10 x 4 cm with signs of active contrast extravasation indicating active bleeding. Radiology recommends emergent consultation with IR and/or surgery because of the amount of bleeding. Blood pressure was in the low-normal range at about 93/50. Pulse was not tachycardic at 78. Patient was mentating normally but having a lot of pain. With the active bleeding confirmed I did immediately call for transfusion to be started. I ordered a unit hanging now on a 2nd unit to hang later or send with the patient in transport. I also ordered Kcentra to reverse her Eliquis. Confirm the Kcentra is both safe and appropriate with the accepting team at the . We contacted the [facility]. Discussed with the ER doctor, Dr. Pino. She graciously accepts this patient immediately as an ER to ER transfer and she will arrange the appropriate consultative services. Patient will clearly require emergent transport which would best be done by EMS. In the setting of life-threatening hemorrhage, She cannot transfer safely in her own car. With current traffic and road construction would take more than an hour to transfer by ground. With active bleeding and tenuous blood pressure, we do not feel that ground transport is appropriate. Patient will be transferred by air EMS. I updated the patient and her family and her . He will notify her daughter. Incidentally baseline creatinine had trended up to 1.9 based on patient's report from last week. Creatinine is 2.0 today. Other electrolytes look good. White count is normal at 8.9. Platelet count is 342. Lactic acid is elevated 2.2 which I think reflux hypoperfusion due to bleeding rather than sepsis. Lab Data Labs: Lab Results 10/12/24 10/13/24 10/13/24 Range/Units 11:07 09:22 09:41 WBC 8.92 (4.50-11.00) K/uL RBC 2.23 L (4.00-5.20) m/uL Hgb 5.8 L* (12.0-16.0) gm/dL Hct 18.9 L (33.0-51.0) % MCV 85 (80-100) fL MCH 26 (26-34) pg MCHC 31 L (32-36) gm/dL RDW Coeff of Juanjo 15.2 (11.5-15.5) % Plt Count 342 (140-440) K/uL Neut % (Auto) 71.3 (42.0-72.0) % Lymph % (Auto) 14.5 L (20-44) % [place] % (Auto) 12.0 H (0.0-11.0) % Eos % (Auto) 0.8 (0.0-7.0) % Baso % (Auto) 0.4 (0.0-3.0) % Neut # (Auto) 6.36 (1.7-7.0) K/uL Lymph # (Auto) 1.30 (0.90-2.90) K/uL [place] # (Auto) 1.10 H (0.00-0.90) K/UL Eos # (Auto) 0.07 (0.00-0.50) K/uL Baso # (Auto) 0.04 (0.00-0.30) K/uL Abs Immat Gran (auto) 0.09 (0.00-0.30) K/uL Imm/Tot Granulo (auto) 1.0 % Sodium 143 (135-149) mmol/L Potassium 4.4 (3.6-5.1) mmol/L Chloride 111 (96-114) mmol/L Carbon Dioxide 26 (20-32) mmol/L Anion Gap 6 L (7-15) mEq/L BUN 49 H (7-30) mg/dL Creatinine 2.0 H (0.5-1.5) mg/dL Estimated Creat Clear 25.91 Estimated GFR 28 ml/min Glucose 128 H (60-115) mg/dL Lactate (0.5-1.9) mmol/L Calcium 9.0 (8.4-10.6) mg/dL POC Creatinine 2.2 H (0.6-1.3) mg/dl Blood Type A Negative A Negative Antibody Screen NEGATIVE NEGATIVE Crossmatch (AHG) See Detail See Detail 10/13/24 Range/Units 09:57 WBC (4.50-11.00) K/uL RBC (4.00-5.20) m/uL Hgb (12.0-16.0) gm/dL Hct (33.0-51.0) % MCV (80-100) fL MCH (26-34) pg MCHC (32-36) gm/dL RDW Coeff of Juanjo (11.5-15.5) % Plt Count (140-440) K/uL Neut % (Auto) (42.0-72.0) % Lymph % (Auto) (20-44) % [place] % (Auto) (0.0-11.0) % Eos % (Auto) (0.0-7.0) % Baso % (Auto) (0.0-3.0) % Neut # (Auto) (1.7-7.0) K/uL Lymph # (Auto) (0.90-2.90) K/uL [place] # (Auto) (0.00-0.90) K/UL Eos # (Auto) (0.00-0.50) K/uL Baso # (Auto) (0.00-0.30) K/uL Abs Immat Gran (auto) (0.00-0.30) K/uL Imm/Tot Granulo (auto) % Sodium (135-149) mmol/L Potassium (3.6-5.1) mmol/L Chloride (96-114) mmol/L Carbon Dioxide (20-32) mmol/L Anion Gap (7-15) mEq/L BUN (7-30) mg/dL Creatinine (0.5-1.5) mg/dL Estimated Creat Clear Estimated GFR ml/min Glucose (60-115) mg/dL Lactate 2.5 H (0.5-1.9) mmol/L Calcium (8.4-10.6) mg/dL POC Creatinine (0.6-1.3) mg/dl Blood Type Antibody Screen Crossmatch ([facility]) Critical Care Time Critical Care Time Critical Care Time: Yes Attestation: The patient required my highest level preparedness to intervene emergently and I personally spent this critical care time directly and personally managing the patient. This critical care time included: Obtaining a history; Examining the patient; Pulse oximetry; Ordering and reviewing of studies; Arranging urgent treatment with development of a management plan; Evaluation of patients response to treatment; Frequent reassessment discussions with other providers. This critical care time was performed to assess and manage the high probability of imminent life-threatening deterioration that could result in multiorgan failure. It was exclusive of separate billable procedures and treating other patients and teaching time. Total Critical Care Time in Minutes: 45 Discharge Plan Discharge Clinical Impression: Perinephric hematoma of kidney transplant, Anemia, Chronic kidney disease Patient Disposition: Xfer Other Condition: Critical Prescriptions: No Action Eliquis 5 mg tablet 5 mg PO BID bupropion HCl [Wellbutrin XL] 150 mg tablet extended release 24 hr 150 mg PO DAILY cholecalciferol (vitamin D3) 25 mcg (1,000 unit) capsule 25 mcg PO DAILY cholestyramine (with sugar) [Questran] 4 gram powder PO citalopram [Celexa] 20 mg tablet 20 mg PO DAILY cyanocobalamin (vitamin B-12) 1,000 mcg capsule 1,000 mcg PO DAILY gabapentin 300 mg capsule 600 mg PO BID Creon 12,000-38,000 -60,000 unit capsule,delayed release(DR/EC) 2 cap PO Q8H pantoprazole 40 mg tablet,delayed release (DR/EC) 40 mg PO DAILY ondansetron 4 mg tablet,disintegrating 4 mg PO Q8H PRN sirolimus 1 mg tablet 3 mg PO DAILY rosuvastatin 40 mg tablet 40 mg PO DAILY tacrolimus [Prograf] 1 mg capsule 4 mg PO Q12H topiramate [Topamax] 50 mg tablet 50 mg PO BID Stand Alone Forms: [employer] Info Instructions
[2024-10-13 09:29] LABS: Creatinine, Point-of-Care* 2.2 mg/dl (0.6-1.3)
[2024-10-13 09:39] LABS: Hematocrit 18.9 % (33.0-51.0); Immature Granulocytes Abs Auto 0.09 K/uL (0.00-0.30); Immature Granulocytes Pct Auto 1.0 %; Mean Corpuscular HGB Conc 31 gm/dL (32-36); Mean Corpuscular Hemoglobin 26 pg (26-34); Mean Corpuscular Volume 85 fL (80-100); RDW Coefficient of Variation % 15.2 % (11.5-15.5); Red Blood Count 2.23 m/uL (4.00-5.20); White Blood Count* 8.92 K/uL (4.50-11.00)
--- NOTE | 2024-10-13 09:40 | CRLHL7_ITS ---
For Patients: As a result of the 21st Century Cures Act, medical imaging exams and procedure reports are released immediately into your electronic medical record. You may view this report before your referring provider. If you have questions, please contact your health care provider. Indication: Kidney transplant with recent biopsy, severe lower abdominal pain Technique: Volumetric multidetector CT images of the abdomen and pelvis were obtained after the administration of intravenous contrast. 58 cc Isovue 370 low osmolar intravenous contrast Comparison: None available. Findings: There is basilar atelectasis and parenchymal scar. There is a trace amount of perihepatic fluid. There is mild intrahepatic and common biliary ductal prominence. The portal vein is patent. The gallbladder is unremarkable without evidence of radiopaque calculus. Mild common biliary ductal prominence without obstructive calculus. The spleen is surgically absent. The stomach and duodenum are grossly unremarkable. There is moderate atrophy of the pancreas without obvious focal abnormality. There is likely transplanted pancreas seen in the right lower quadrant with grossly preserved enhancement. The adrenal glands are unremarkable. The [place] kidneys demonstrate atrophy with minimal corticomedullary enhancement. There is demonstration of a transplanted kidney within the left lower quadrant with a large perinephric hematoma measuring up to 10.4 x 10.1 centimeters in greatest dimension with active contrast extravasation seen on series 2, image 111 and 115. There is trace extraperitoneal hemorrhage with additional minimal fluid tracking along the left pericolic gutter. There is a mild amount of stool seen throughout the colon. There is mild distal colonic diverticulosis. The appendix is likely surgically absent. There is no significant mesenteric, retroperitoneal, or pelvic sidewall lymph nodes. The aorta is nonaneurysmal. There is no significant atherosclerotic disease appreciated. There is minimal nonspecific thickening of the urinary bladder which may represent underlying cystitis changes versus nondistention. Minimal fluid tracks along the bilateral pericolic gutters and central pelvis. No intra-abdominal free air. Postoperative changes of the ventral abdomen are appreciated. The lumbar vertebral body heights are grossly maintained in satisfactory alignment without evidence of displaced fracture, lytic or blastic lesion. Impression: 1. Demonstration of moderate perinephric hematoma within transplanted kidney in the left lower quadrant with active contrast extravasation seen best on series 2, images 111 and 115 consistent with post biopsy bleeding. There is preserved corticomedullary differentiation. 2. Atrophy of the [place] pancreas with pancreatic transplant seen in the right lower quadrant. Normal glandular enhancement of transplant pancreas. 3. Nonspecific thickening of the urinary bladder which may represent underlying cystitis versus nondistention. Findings were discussed with Socrates Montero at 10:26 a.m. October 13, 20[address] Please note that all CT scans at this facility use dose modulation, iterative reconstruction, and/or weight-based dosing when appropriate to reduce radiation dose to as low as reasonably achievable. Dictated by Trevon Ellis MD @ 10/13/2024 10:27:31 AM (Electronically Signed)
[2024-10-13 09:45] LABS: Hemoglobin* 5.8 gm/dL (12.0-16.0); Lymphocytes Absolute Auto 1.30 K/uL (0.90-2.90); Slide Review Reflex No
[2024-10-13 09:47] LABS: Chloride* 111 mmol/L (96-114); Sodium* 143 mmol/L (135-149)
[2024-10-13 09:48] LABS: Potassium* 4.4 mmol/L (3.6-5.1)
[2024-10-13 09:50] LABS: Blood Urea Nitrogen* 49 mg/dL (7-30); Creatinine* 2.0 mg/dL (0.5-1.5); Est. Creatinine Clearance* 25.91; Estimated Glomerular Filt Rate 28 ml/min
[2024-10-13 09:51] LABS: Anion Gap 6 mEq/L (7-15); Calcium* 9.0 mg/dL (8.4-10.6); Carbon Dioxide* 26 mmol/L (20-32); Glucose* 128 mg/dL (60-115)
--- OUTSIDE RECORDS SUMMARY | 2024-10-13 10:02 | XMS_ITS | Encounter Summary ---
Author Organization [facility] Address [address] [place] [address] Care Team Providers Care Gold Marker Name Role Phone Robert Marley MD Primary Care Provider Chana Cheng MD Unavailable [phone] Anoop Garcia MD Unavailable Unavailable Barbara Carlson MD Unavailable Tayo Lacey MD Unavailable [phone] TuBasil shaikh MD Unavailable Charleen Lynne MD Unavailable [phone] Olimpia Williamson RN Unavailable [phone] Rin Dewitt RN Unavailable [phone] Rin Dewitt RN Unavailable [phone] Qian Rodriguez MD Unavailable [phone] Sherri Kingston Unavailable [phone] Olipmia Williamson RN Unavailable [phone] Olimpia Williamson RN Unavailable [phone] Christopher Quiroga MD Unavailable Claudia Yousif RN Unavailable Lance Simpson PA-C Unavailable [phone] Olimpia Williamson RN Unavailable [phone] Sherri Kingston Unavailable [phone] Delvin Bob MD Unavailable Charleen Lynne MD Unavailable [phone] ChapaShakira zelaya MD Unavailable Unav ailable Zoltan Eric ADRIANKerry Unavailable [phone] Delvin Bbo MD Unavailable Shante Mathisony Jaden LÓPEZ Unavailable + Sherri Kingston Unavailable [phone] Pedro Winchester MD Unavailable [phone] ChapaShakira zelaya MD Unavailable Unav ailable Jovanni Dempsey MD Unavailable [phone] Jovanni Dempsey MD Unavailable [phone] Len Hooks MD Unavailable Delvin Bob MD Unavailable Love Hernandez PA-C Unavailable Conrado Evans MD Unavailable Love Hernandez PA-C Unavailable Gordy Nickerson MD Unavailable Everardo Grant MD Unavailable Rey Billings MD Unavailable [phone] Conrado Evans MD Unavailable Delvin Lopez MD Unavailable [phone] Carissa Putnam RN Unavailable [phone] Encounter Details Date Type Department Care Team (Late st Contact Info) Description 07/10/2015 External Order Results [facility] [address] [place] [address] Social History Tobacco Use Types Packs/Day Years Used Date Smoking Tobacco: Former Smokeless Tobacco: Never Alcohol Use Standard Drinks/Week Comments No 0 (1 standard drink = 0.6 oz pur e alcohol) Comments No Sex and Gender Information Value Date Recorded Sex Assigned at Not on file Legal Sex Female 3:26 AM INSURANCE COUNSEL Gender Identity Not on file Sexual Orientation Not on file Occupation Industry Job Start Date Job End Date Not on file Not on file Not on file Not on file documented as of this encounter Plan of Treatment Upcoming Encounters Date Type Department Care Team (Late st Contact Info) Description 10/25/2024 10:00 AM CDT Virtual Visit [facility] [address] [place] [address] Edith Brito 10/26/2024 8:30 AM CDT Lab [facility] [address] [facility] [address] [place] [phone] Conrado Evans MD [address] [facility] [address] [facility] [address] [place] [address] documented as of this encounter Procedures Procedure Name Priority Date/Time Associated Diagnosis Comments EXTERNAL LAB RESULTS Routine 07/10/2015 8:50 AM CDT documented in this encounter Results * (ABNORMAL) TXP External Lab Result (07/10/2015 8:50 AM CDT) Calcium (External) 9.1 8.4 - 10.6 MG/DL LABDE SCAN Urea Nitrogen (External) 39(H) 5 - 24 MG/DL LABDE SCAN Creatinine (External) 1.2 0.5 - 1.5 MG/DL LABDE SCAN Glucose (External) 70 60 - 115 mg/dL LABDE SCAN Sodium (External) 143 135 - 149 MMOL/L LABDE SCAN Potassium (External) 4.0 3.5 - 5.1 MMOL/L LABDE SCAN Chloride (External) 102 1.96 - 114 MMOL/L LABDE SCAN CO2 (External) 29 20 - 32 MMOL/L LABDE SCAN Amylase (External) 52 18 - 89 U/L LABDE SCAN Lipase Level (External) 60 23 - 300 U/L LABDE SCAN WBC Count (External) 7.96 5.00 - 10.00 K/UL LABDE SCAN RBC Count (External) 2.41(L) 3.9 - 5.03 M/UL LABDE SCAN Hemoglobin (External) 7.7(LL) 12.0 - 15.5 GM/DL LABDE SCAN Hematocrit (External) 25.0(L) 34.9 - 44.5 % LABDE SCAN MCV (External) 104(H) 82 - 98 FL LABDE SCAN MCH (External) 32 27 - 34 PG LABDE SCAN MCHC (External) 31(L) 32 - 36 GM/DL LABDE SCAN Platelet Count (External) 485(H) 150 - 450 K/UL LABDE SCAN % Neutrophils (External) 77.2(H) 50.0 - 70.0 % LABDE SCAN % Lymphocytes (External) 13.3(L) 25.0 - 45.0 % LABDE SCAN % Monocytes (External) 7.9(L) 10.00 - 11.0 % LABDE SCAN % Eosinophils (External) 0.6 0.0 - 7.0 % LABDE SCAN % Basophils (External) 0.4 0.0 - 3.0 % LABDE SCAN Absolute Neutrophils (External) 6.14 1.70 - 7.00 K/UL LABDE SCAN Absolute Lymphocytes (External) 1.06 0.90 - 2.90 K/UL LABDE SCAN Absolute Monocytes (External) 0.63 0.30 - 0.90 K/UL LABDE SCAN Absolute Eosinophils (External) 0.05 0.00 - 0.50 K/UL LABDE SCAN Absolute Basophils (External) 0.03 0.00 - 0.20 K/UL LABDE SCAN % Immature Granulocytes (External) 0.6 % LABDE SCAN Absolute Immature Granulocytes (External) 0.05 K/UL LABDE SCAN 07/10/2015 8:50 AM CDT Narrative BOBBY NESBITT - 07/10/2015 12:00 PM CDT Verified by Lance Deng on 07/10/2015. us Patient Reported LABORATORY Edited Result - [...] for review. [facility] Infection Prevention 07/11/2019 at 3:56 PM [...] Out COVID-19 04/19/2020 04/19/2020 04/19/2020 1:56 PM INSURANCE COUNSEL Rule Out COVID-19 04/19/2020 04/20/2020 04/20/2020 6:34 AM INSURANCE COUNSEL Rule Out COVID-19 12/15/2020 12/15/2020 12/15/2020 4:33 PM CDT Rule Out C-difficile 01/06/2021 01/08/2021 021 11:43 AM INSURANCE COUNSEL Rule Out C-difficile 07/10/2021 07/10/2021 022 5:56 PM CDT Rule Out C-difficile 07/16/2023 07/16/2023 024 9:21 PM CDT Rule Out Parvovirus 07/16/2023 07/16/2023 07/19/19 24 12:29 PM CDT Parvovirus 07/16/2023 07/16/2023 10/03/2024 4:22 PM CDT [id number] Comment:This patient was exposed to a person with a known CP-DIESEL LUBE TECH and has the potential for having acquired this pathogen of concern. The [facility] ([facility]) and CDC recommend that we screen this patient to prevent the spread of these organisms within our healthcare facility. Infection Prevention has placed orders for collecting a rectal swab for CP-DIESEL LUBE TECH to evaluate if this patient is now a carrier. This patient was identified to have a low risk exposure in which case Contact Precautions are not necessary unless the patient tests positive. Screening is voluntary. Please notify Infection Prevention if the patient declines testing. Additional information and resources can be found on the Infection Prevention [employer] Sharepoint page. 08/04/2023 08/04/2023 02/02/2024 11:39 PM INSURANCE COUNSEL Rule Out Parvovirus 09/28/2023 09/28/2023 10/05/19 24 11:41 PM CDT documented as of this encounter Care Teams Gold Marker Relationship Specialty Start Date End Date Robert Marley MD [address] [address] PCP - General Family Practice 12/08/10 Chana Cheng MD [address] [address] Nephrology 05/26/14 11/12/15 Anoop Garcia MD [address] [address] Transplant 05/26/14 02/02/18 Barbara Carlson MD [address] [place] [address] Referring Physician Nephrology 08/30/14 11/12/15 Tayo Lacey MD [address] [place] [address] Cardiology 08/30/14 Basil Plummer MD [address] [place] [address] [id number] Neurology 05/09/15 04/23/16 Charleen Lynne MD [address] [place] [address] [id number] MD Oncology 06/14/15 12/19/18 Olimpia Williamson, RN Nurse Coordinator Oncology 06/14/15 04/23/16 Rin Dewitt, RN Nurse Coordinator Neurology 07/24/15 04/23/16 Rin Dewitt, RN Nurse Coordinator Neurology 10/25/15 10/12/17 Qian Rodriguez MD [address]17 [facility] 353 [place], [place] 9[address] Nephrology 11/13/15 06/16/16 Sherri Kingston PA [address] [facility] [address] [place], [place] [address] Physician Free Lance Artist Physician Free Lance Artist 03/20/16 Olimpia Williamson, RN Nurse Coordinator Oncology 06/26/16 06/26/16 Olimpia Williamson, RN Nurse Coordinator Oncology 06/26/16 06/16/18 Christopher Quiroga MD [facility] [address] [place] [address] MD Oncology 07/02/16 Claudia Yousif RN Nurse Coordinator Gastroenterology 02/09/17 09/16/22 Lance Simpson PA-C [address] [place] [address] [id number] Physician Free Lance Artist Physician Free Lance Artist 01/07/18 Olimpia Williamson, RN Specialty Continuous Linter Drier Operator Hematology & Oncology 05/06/18 12/19/18 Sherri Kingston PA [address] [place] [address] Urology [place], [place] [phone] Physician Free Lance Artist Physician Free Lance Artist 12/21/18 Delvin Bob MD [address] [place] [address] [phone] Internal Medicine 11/11/19 Charleen Lynne MD [address] [place] [address] [phone] Assigned Cancer Care Provider 12/23/19 03/23/21 Shakira Chapa MD [place] OF 06/29/2020 Assigned Surgical Provider 12/23/19 07/14/20 Zoltan Eric DPM [address] [facility] [address] [place] [address] Assigned Musculoskeletal Provider 12/23/19 07/26/21 Delvin Bob MD 420 [facility] [address] [place] [address] Assigned PCP 12/08/19 02/14/22 Maximo Mathis DO [address] [place] [id number] Assigned Neuroscience Provider 02/12/20 08/09/21 Sherri Kingston PA [address] [facility] Urology [place], [place] [phone] Assigned Surgical Provider 07/15/20 10/06/20 Pedro Winchester MD [address] [place] [address] Assigned Heart and Vascular Provider 08/05/20 01/31/22 Shakira Chapa MD [place]IVE [place] OF 06/29/2020 Assigned Surgical Provider 10/07/20 10/13/20 Jovanni Dempsey MD [address] [place] [address] Assigned Nephrology Provider 03/24/21 03/14/22 Jovanni Dempsey MD [address] [place] [address] Assigned Nephrology Provider 03/15/22 03/21/22 Len Hooks MD [address]17 [facility] [address] [place] [address] Assigned Nephrology Provider 03/22/22 12/26/22 Delvin Bob MD 420 [facility] [address] [place] [address] Assigned PCP 04/26/22 12/12/22 Love Hernandez PA-C [address] [facility] 500 [place], [place] [address] Physician Free Lance Artist Urology 12/01/22 Conrado Evans MD [address] [facility] 353 [facility] [address] [place] [address] Assigned Nephrology Provider 12/27/22 06/21/24 Love Hernandez PA-C [address] [facility] [address] [place], [place] [address] Assigned Surgical Provider 01/17/23 [place] [address] [place] [address] Assigned Gastroenterology Provider 07/23/23 Everardo Grant MD [address] [place], [place] [phone] Physician Infectious Diseases 09/23/23 Rey Billings MD [address] [place] [address] Assigned Infectious Disease Provider 10/23/23 Conrado Evans MD 717 [facility] [address] [facility] [address] [place], [place] [address] Nephrology 08/25/24 Delvin Lopez MD [address] [place], [place] 8930[address] Nephrology 08/25/24 Carissa Putnam, RN [facility] [address] [place] [address] Specialty Continuous Linter Drier Operator Pharmacy 10/10/24 10/10/24 documented as of this encounter
[2024-10-13 10:14] LABS: Lactate Sepsis w/Reflex* 2.5 mmol/L (0.5-1.9)
[2024-10-13] MEDS: ONDANSETRON 2 MG/ML inj 4 MG IVP (10:22)
[2024-10-13] MEDS: PROTHROMBIN COMPLEX IV (11:06)
[2024-10-13] MEDS: INTRAVIA CONTAINER IV (11:06)
== END 2024-10-13 11:25 | disposition other institution (70) ==
PROVIDERS: Emergency Provider Emergency Medicine; PCP Family Medicine
DX: E89.820 Postprocedural hematoma of an endocrine system organ or structure following an endocrine system procedure (principal); E36.01 Intraoperative hemorrhage and hematoma of an endocrine system organ or structure complicating an endocrine system procedure; D64.9 Anemia, unspecified; E10.22 Type 1 diabetes mellitus with diabetic chronic kidney disease; N18.4 Chronic kidney disease, stage 4 (severe); Z94.0 Kidney transplant status
CPT/HCPCS: 36415; 36430; 74177; 80048; 81001; 82565; 83605; 83690; 85025; 86850; 86900; 86901; 86922; 99285; 99291; J2405; J3010; J7030; J7168; P9016; Q9967

== ENCOUNTER 2024-10-13 10:00 | Outpatient (RCR) | payer MEDICARE, BC, SELFPAY ==
[2024-05-12] VITALS (7 sets, daily range): BP systolic 145–177; BP diastolic 65–84; PULSE 84–90; RESP 16–18; TEMP 36.9–37.4; O2SAT 93–96
--- NOTE | 2024-05-12 14:43 | ONC.NURNOTE ---
Pt here for 1 unit PRBC. BP after blood 177/84, baseline 145/65. Pt denies headache, blurred vision. Pt refused to stay the full 1 hour observation period, pt monitored for 30 min. Pt aware of risks of not staying full 1 hour for observation.
== END 2024-11-06 23:59 | disposition home or self-care (01) ==
LOC: CCIC 10:00
PROVIDERS: PCP Family Medicine; Referring Provider Family Medicine; Visit Provider Clinical Nurse Specialist
DX: D58.9 Hereditary hemolytic anemia, unspecified (principal)
CPT/HCPCS: 36415; 36430; 86850; 86900; 86901; 86922; P9016

== ENCOUNTER 2024-11-25 12:32 | Emergency (ER) | payer MEDICARE, BC, SELFPAY ==
--- OUTSIDE RECORDS SUMMARY | 2012-10-14 11:39 | XMS_ITS | Continuity of Care Document ---
Author Organization TERRA Lim Address [address] [facility] [address] [place] [address] Phone Care Team Providers Care Rural Service Engineer Name Role Phone Tayo Abernathy MD Unavailable Unavailable Procedures Procedure Date Init Inpt Cons New/estab Low 4 13 Advance Directives Directive Yes / No Effective Date File Name No Information Encounters Encounter Description Practice Location Reason(s) For Visit Diagnoses Date Provider Providers Copied on Encounter TERRA Lim, [address] [facility] [address], [place], [id number], [place] tel:[phone] [facility] No Information Josemanuel Cr. [address], [place], [id number], [place]. tel:[phone] Ref[facility]: [facility], [address] [place] [address] [address], [place], [address]. tel:[phone] Init Inpt Cons New/estab Low 4 TERRA Lim, [address] [facility] [address], [place], [id number], tel:[phone] [facility] No Information Gena Joel. [address], [facility] , [place], [address], [place]. tel:[phone] Referring Provider: [facility], [address], [place], [address]. tel:[phone] Family History Family Member Type Diagnosis Age At Onset No Information Payers Payer name Insurance type Covered republican ID Authorkrissybalta tion(s) [facility] [id number] Social History Type Description Quantity Date Captured Comments Sex Female Smoking Status No Information Chief Complaint And Reason For Visit No Information Reason For Referral Reason For Referral No Information History Of Present Illness Encounter Date Complaint History Of Prese nt Illness No Information Functional Status Date Functional Assessmen t No Information Instructions Date Instruction Additional Infor mation No Information Assessments Type Assessment Date No Information Patient Care Teams Name Effective Dates (start - stop) Status Members No Information
--- OUTSIDE RECORDS SUMMARY | 2012-10-14 11:39 | XMS_ITS | Continuity of Care Document ---
Author Organization TERRA Lim Address [address] [facility] [address] [place] [address] Phone Care Team Providers Care Document Review Attorney Name Role Phone Tayo Abernathy MD Unavailable Unavailable Procedures Procedure Date Init Inpt Cons New/estab Low 4 13 Advance Directives Directive Yes / No Effective Date File Name No Information Encounters Encounter Description Practice Location Reason(s) For Visit Diagnoses Date Provider Providers Copied on Encounter TERRA Lim, [address] [facility] [address], [place], [id number], [place] tel:[phone] [facility] No Information Josemanuel Cr. [address], [place], [id number], [place]. tel:[phone] Referring Provider: [facility], [address] [place] [address] [address], [place], [address]. tel:[phone] Init Inpt Cons New/estab Low 4 TERRA Lim, [address] [facility] [address], [place], [id number], tel:[phone] [facility] No Information Gena Joel. [address], [facility] , [place], [address], [place]. tel:[phone] Referring Provider: [facility], [address], [place], [address]. tel:[phone] Family History Family Member Type Diagnosis Age At Onset No Information Payers Payer name Insurance type Covered libertarian ID Authorkrissybalta tion(s) [facility] [id number] Social History Type Description Quantity Date Captured [...]
--- OUTSIDE RECORDS SUMMARY | 2024-08-17 07:35 | XMS_ITS | Continuity of Care Document ---
Author Organization [facility] Address [address] [address] [place] [address] Phone Care Team Providers Care Exchange Mechanic Name Role Phone Kristina GOVEA, Laci Unavailable Unavailable Allergies, Adverse Reactions, Alerts Substance Reaction Status Criticality No Known Allergies Active No Inform ation Medications Medication Instructions Dosage Effective Dates (start - stop) Status Comments WelChol 625 mg tablet take 1 tablet by oral route 3 times every day with a meal and liquid 625 MG - Active Creon 12,000-38,000-60,000 unit capsule,delayed release take 2 capsule by oral route 3 times every day with meals and 1 capsule with each snack 2.00 capsule - Active 90DS Cholestyramine Light 4 gram powder for susp in a packet take 1 packet by oral route 2 times every day dissolved in 2 to 6 ounces of water or noncarbonated beverage before meals as needed - Active tacrolimus 1 mg capsule, immediate-release take (0.1MG/KG) by oral route every 12 hours 0.1 MG/KG - Active rosuvastatin 40 mg tablet take 1 tablet by oral route every day 40 MG - Active Trokendi XR 50 mg capsule, extended release take 1 capsule by oral route every day 50 MG - Active sirolimus 0.5 mg tablet - Active pantoprazole 40 mg tablet,delayed release take 1 tablet by oral route every day 40 MG - Active bupropion HCl XL 150 mg 24 hr tablet, extended release take 1 tablet by oral route every day 150 MG - Active Procedures Procedure Date Subsqt Hosp-da E&m Minr Compl 4 Init Hosp-da E&m Mod Severity 4 Established Level 3 Offic/outpt E&m New Mod-hi Init Hosp-da E&m Mod Severity 3 Ugi Endo; Dx W/wo Collec Specm 13 Advance Directives Directive Yes / No Effective Date File Name No Information Encounters Encounter Description Practice Location Reason(s) For Visit Diagnoses Date Provider Providers Copied on Encounter [facility], [address] [address], [place], [place], [id number], tel:[phone] [facility] No Information 5 Kristina Aguero. [address] [place] [address], [id number], [place]. tel:[phone] [facility], [address] [address], [place], [id number], [place] tel:[phone] [facility] No Information 5 Kristina Aguero. [address], [id number], [place]. tel:[phone] [facility], [address] [address], [place], [address], [place] tel:[phone] [facility] No Information 4 Kristina Aguero. [address], [id number], [place]. tel:[phone] Subsqt Hosp-da E&m Minr Compl [facility], [address] [address], [place], [id number], [place] tel:[phone] [facility] No Information 4 Kat Lovell. [address], [id number], [place]. tel:[phone] Referring Provider: Liliya Klein, [address] [facility], [place], [address]. tel:[phone] Init Hosp-da E&m Mod Severity [facility], [address] [address], [place], [place], [id number], [place] tel:[phone] [facility] No Information 4 Nilson Le. [address] [facility], [address], [id number], [place]. tel:[phone] Referring Provider: Robert Bryant, [address] [place], [address]. tel:[phone] [facility], [address] [address], [place], [place], [id number], [place] tel:[phone] [facility] No Information 3 Kristina Aguero. [address] [place] [address], [id number], [place]. tel:[phone] Established Level 3 [facility], [address] [address], [place], [place], [id number], [place] tel:[phone] [facility] GI Symptoms or Concerns (chief complaint)P revious History Review (chief complaint) Diarrhea, unspecified type 3 Kristina Aguero. [facility], [address], [id number], [place]. tel:[phone] Robert Marley MD. tel:[phone] ring Provider: Referral Self, USE FOR SELF REFERRALS. [facility], [address] [address], [place], [place], [id number], [place] tel:[phone] [facility] No Information 3 Kristina Aguero. [address] [facility], [facility] [address], [place], [id number], [place]. tel:[phone] Offic/outpt E&m New Mod-hi [facility], [address] [address], [place], [id number], [place] tel:[phone] [facility] GI Symptoms or Concerns (chief complaint) Diarrhea, unspecified type 2 Kristina Aguero. [address] [facility], [facility] [address], [place], [id number], [place]. tel:[phone] Robert Marley MD. tel:[phone] ring Provider: Roni Bryant, [address] , [place], [address]. tel:[phone] [facility], [address] [address], [place], [place], [id number], [place] tel:[phone] No Information No Information Referring Provider: Roni Bryant, [address] , [place], [address]. tel:[phone] Init Hosp- E&m Mod Severity [facility], [address] [address], [place], [place], [id number], [place] tel:[phone] [facility] No Information 3 Annabelle Jimenez. [address] [facility], [facility] [address], [place], [address], [place]. tel:[phone] Referring Provider: Megan Chaudhry MD, [address] [place], [address]. tel:[phone] [facility], [address] [address], [place], [place], [address], [place] tel:[phone] [facility] No Information 3 Fab Lewis. [address] [facility], [facility] [address], [place], [id number], [place]. tel:[phone] Referring Provider: Robert Bryant, [address] [place], [address]. tel:[phone] Family History Family Member Type Diagnosis Age At Onset Mother Problem (finding) Diverticular disease Mother Problem (finding) Colon polyps Father Problem (finding) Colon polyps Immunizations Vaccine Date Status Comments Afluria Qd administered Note: [facility] bi-directional interface ; Source: Other Registry Afluria Qd administered Note: [facility] bi-directional interface ; Source: Other Registry SARS-COV-2 (COVID-19) vaccin e, mRNA, spike protein, LNP, preservative free, 30 mcg/0.3mL dose administered Note: [facility] bi-direct ional interface ; Source: Other Registry Seasonal, quadrivalent, recombinant, injectable influenza vaccine, preservative free administered Note: [facility] bi-direct ional interface ; Source: Other Registry SARS-COV-2 (COVID-19) vaccin e, mRNA, spike protein, LNP, preservative free, 30 mcg/0.3mL dose administered Note: [facility] bi-direct ional interface ; Source: Other Registry SARS-COV-2 (COVID-19) vaccin e, mRNA, spike protein, LNP, preservative free, 30 mcg/0.3mL dose administered Note: [facility] bi-direct ional interface ; Source: Other Registry tetanus toxoid, reduced diphtheria toxoid, and acellular pertussis vaccine, adsorbed administered Note: [facility] b i-directional interface ; Source: Other Registry Influenza administered Note: [facility] bi-d irectional interface ; Source: Other Registry Haemophilus influenzae type b vaccine, PRP-T conjugate administered Note: [facility] bi-d irectional interface ; Source: Other Registry Prevnar 13 administered Note: [facility] bi-d irectional interface ; Source: Other Registry tetanus toxoid, reduced diphtheria toxoid, and acellular pertussis vaccine, adsorbed administered Note: [facility] b i-directional interface ; Source: Other Registry Pneumovax 23 administered Note: [facility] bi-d irectional interface ; Source: Other Registry Pneumovax 23 administered Note: [facility] bi-d irectional interface ; Source: Other Registry Novel [id number], injectable administered Note: [facility] bi-direct ional interface ; Source: Other Registry Influenza, seasonal, injectable administe red Note: [facility] bi- directional interface ; Source: Other Registry Pneumovax administered Note: [facility] bi-d irectional interface ; Source: Other Registry Influenza, seasonal, injectable administe red Note: [facility] bi- directional interface ; Source: Other Registry Payers Payer name Insurance type Covered alliance party ID Authorkarie kennedy(s) Medicare [facility] [id number] Blue Cross Of [facility] [id number] Social History Type Description Quantity Date Captured Comments Sex Female Smoking Status No Information Chief Complaint And Reason For Visit No Information Reason For Referral Reason For Referral No Information Plan Of Treatment Date Type Action Status Referral Ordered: TSH Appointment date/timeframe: 11/13/2021 ordered History Of Present Illness Encounter Date Complaint History Of Prese nt Illness GI Symptoms or Concerns This is a televisit for Roxanna Monzon for followup of diarrhea and weight loss. Kindly see my previous note from 11/07/2021 for details. She tells me her weight has been stable at 120 pounds.She had celiac serology and TSH done, which were normal, a stool for C. diff was normal. She does have previous history of recurrent C. diff. There was time initially when she had improvement of diarrhea, however, the diarrhea started coming back last month. She has about 9-12 bowel movements in 24 hours. Prior to that she tells me that she would have diarrhea every other day with similar amount of bowel movements. She has been using cholestyramine once daily along with Imodium without much relief.She also tells me that she went to the [facility] and had studies done including C. diff to evaluate for pancreatic function (blood and stool studies). They are not back yet and she is waiting for that. Previous History Review PREVIOUS LYThe patient is a pleasant female who is status post history of kidney and pancreas transplant in 2013 at [facility], history of C. diff diarrhea, treated for over 10 times and last treatment was over 2 months ago, history of diabetes mellitus, history of DVT, on anticoagulation, history of GERD, hemolytic anemia, hypertension, restless legs syndrome, and history of stroke.Patient gives history of ongoing diarrhea for over 3 years. She tells me that anything she eats it comes out, sometimes she has had multiple bowel movements overnight. She has lost 30 pounds of weight over this time period.No blood in stools. No dysphagia or odynophagia. She was diagnosed with C. diff and tells me that she has been treated over 10 times mostly with vancomycin and her last treatment was over 2 months ago. 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 She does use Imodium with some relief; however, she has tried fiber without any improvement. She does feel that there are sometimes oily stools.Colonoscopy done on 10/14/2021 showed normal-appearing colonoscopy and normal colonic biopsies. EGD done on 10/14/2021 showing normal esophagus, bilious fluid in the stomach, and normal duodenum. The biopsy showed normal duodenal biopsies and normal gastric and esophageal biopsies. All of this was done at [facility]. GI Symptoms or Concerns This is a clinic visit for Ms. Roxanna Monzon who comes in here for history of diarrhea and weight loss.The patient is a pleasant female who is status post history of kidney and pancreas transplant in 2014 at [facility], history of C. diff diarrhea, treated for over 10 times and last treatment was over 2 months ago, history of diabetes mellitus, history of DVT, on anticoagulation, history of GERD, hemolytic anemia, hypertension, restless legs syndrome, and history of stroke.Patient gives history of ongoing diarrhea for over 3 years. She tells me that anything she eats it comes out, sometimes she has had multiple bowel movements overnight. She has lost 30 pounds of weight over this time period.No blood in stools. No dysphagia or odynophagia. She was diagnosed with C. diff and tells me that she has been treated over 10 times mostly with vancomycin and her last treatment was over 2 months ago. She also tells me that she has been carrier of C. diff and late Functional Status Date Functional Assessmen t No Information Instructions Date Instruction Additional Infor ambika RECOMMENDATIONS1. Ge t the results from [facility]. If she has recurrent C. diff, then would recommend treatment and evaluation for fecal microbiota transplant (FMT).2. If there is fat malabsorption, then can consider pancreatic enzyme supplementation.In the meantime, increase the cholestyramine to twice daily to see if this helps. We also discussed again take it from other major medications at another time. She previously tried a lactose-free diet, which did not help.She has requested to give us an update in 3-4 weeks and follow up in the clinic in 3 months. Related to Diarrhea, unspecified type RECOMMENDATIONS1. Ch lelo stool for C. diff, if this turns out positive, then she needs to be referred for a fecal microbiota transplant since she has recurrent C. diff. We will also check TSH and celiac serology, this can be done with her next INR.2. Start cholestyramine daily and I have discussed that she needs to use at another time from her other medications, and after discussion we found out that midday would be a good time. I have also requested her to follow up with the transplant team for evaluation, especially if she has fat malabsorption and reevaluate regarding her pancreatic function.Try lactose-free diet for 2 weeks.Give us an update in 3-4 weeks and follow up in the clinic in 3 months. Related to Diarrhea, unspecified type Assessments Type Assessment Date No Information Patient Care Teams Name Effective Dates (start - stop) Status Members No Information
--- OUTSIDE RECORDS SUMMARY | 2024-08-17 07:35 | XMS_ITS | Continuity of Care Document ---
Author Organization [facility] Address [address] [address] [place] [address] Phone Care Team Providers Care Roller Staker Name Role Phone Kristina GOVEA, Laci Unavailable [...] Encounter [facility], [address] [address], [place], [place], [id number], tel:[phone] [facility] No Information 5 Kristina Aguero. [address] [place] [address], [id number], [place]. tel:[phone] [facility], [address] [address], [place], [id number], [place] tel:[phone] [facility] No Information 5 Kristina Aguero. [address], [id number], [place]. tel:[phone] [facility], [address] [address], [place], [id number], [place] tel:[phone] [facility] No Information 4 Kristina Aguero. [address], [id number], [place]. tel:[phone] Subsqt Hosp-da E&m Minr Compl [facility], [address] [address], [place], [id number], [place] tel:[phone] [facility] No Information 4 Kat Lovell. [address], [id number], [place]. tel:[phone] Referring Provider: Liliya Klein, [address] [facility] [address], [place], [address]. tel:[phone] Init Hosp-da E&m Mod Severity [facility], [address] [address], [place], [place], [id number], [place] tel:[phone] [facility] No Information 4 Nilson Le. [address] [facility], [address], [id number], [place]. tel:[phone] Referring Provider: Robert Bryant, [address] [place], [address]. tel:[phone] [facility], [address] [address], [place], [place], [id number], [place] tel:[phone] [facility] No Information 3 Kristina Aguero. [address] [place] [address], [id number], [place]. tel:[phone] Established Level 3 [facility], [address] [address], [place], [place], [id number], [place] tel:[phone] [facility] GI Symptoms or Concerns (chief complaint)P revious History Review (chief complaint) Diarrhea, unspecified type 3 Kristina Aguero. [facility], [address], [id number], [place]. tel:[phone] Robert Marley MD. tel:[phone] ring Provider: Referral Self, USE FOR SELF REFERRALS. [facility], [address] [address], [place], [place], [id number], [place] tel:[phone] [facility] No Information 3 Kristina Aguero. [address] [facility], [facility] [address], [place], [id number], [place]. tel:[phone] Offic/outpt E&m New Mod-hi [facility], [address] [address], [place], [id number], [place] tel:[phone] [facility] GI Symptoms or Concerns (chief complaint) Diarrhea, unspecified type 2 Kristina Aguero. [address] [facility], [facility] [address], [place], [id number], [place]. tel:[phone] Robert Marley MD. tel:[phone] ring Provider: Roni Bryant, [address] , [place], [address]. tel:[phone] [facility], [address] [address], [place], [place], [id number], [place] tel:[phone] No Information No Information Referring Provider: Roni Bryant, [address] , [place], [address]. tel:[phone] Init Hosp- E&m Mod Severity [facility], [address] [address], [place], [place], [address], [place] tel:[phone] [facility] No Information 3 Annabelle Jimenez. [address] [facility], [facility] [address], [place], [id number], [place]. tel:[phone] Referring Provider: Megan Chaudhry MD, [address] [place], [address]. tel:[phone] [facility], [address] [address], [place], [place], [id number], [place] tel:[phone] [facility] No Information 3 Fab Lewis. [address] [facility], [facility] [address], [place], [id number], [place]. tel:[phone] Referring Provider: Robert Bryant, [address] [place], [address]. tel:[phone] Family History Family Member Type Diagnosis Age [...] irectional interface ; Source: Other Registry Novel [id number], injectable administered Note: [facility] bi-direct ional interface ; Source: Other Registry Influenza, seasonal, injectable administe red Note: [facility] bi- directional interface ; Source: Other Registry Pneumovax administered Note: [facility] bi-d irectional interface ; Source: Other Registry Influenza, seasonal, injectable administe red Note: [facility] bi- directional interface ; Source: Other Registry Payers Payer name Insurance type Covered democrat ID Authorkarie kennedy(s) Medicare [facility] [id number] Blue Cross Of [facility] [id number] Social History Type Description Quantity Date Captured [...] tells me that she went to the [facility] and had studies done including C. diff to evaluate for pancreatic function (blood and stool studies). They are not back yet and she is waiting for that. Previous History Review PREVIOUS LYThe patient is a pleasant female who is status post history of kidney and pancreas transplant in 2013 at [facility], history of C. diff diarrhea, treated for [...] biopsies. All of this was done at [facility]. GI Symptoms or Concerns This is a clinic visit for Ms. Roxanna Monzon who comes in here for history of diarrhea and weight loss.The patient is a pleasant female who is status post history of kidney and pancreas transplant in 2014 at [facility], history of C. diff diarrhea, treated for [...] ambika RECOMMENDATIONS1. Ge t the results from [facility]. If she has recurrent C. diff, [...]
--- OUTSIDE RECORDS SUMMARY | 2024-10-22 20:19 | XMS_ITS | Encounter Summary ---
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 [place], [place] [address] Socrates Ly MD [address] [id number] Hypertension, unspecified type (HRC); End stage renal disease (HRC); Post-operative pain Discharge Disposition: Acute Care Hospital Social History Tobacco Use Types Packs/Day [...] Sign Reading Time Taken Comments Blood Pressure 163/78 10/23/2024 1:30 AM CDT Pulse 87 10/23/2024 1:30 AM CDT Temperature 36.8 C (98.2 F) 10/22/2024 8:16 PM CDT Respiratory Rate 16 10/23/2024 1:00 AM CDT Oxygen Saturation 98% 10/23/2024 1:30 AM CDT Inhaled Oxygen Concentration - - Weight - - Height - - Body Mass Index - - documented in this encounter Medications at Time of Discharge acetaminophen 500 MG tablet Take 2 Tablets (1,000 mg) by mouth every 6 hours as needed for Pain or Fever. apixaban (ELIQUIS) 5 MG tablet Take 1 Tablet (5 mg) by mouth two times a day. 09/23/2024 aspirin 81 MG chewable tablet Chew and swallow 1 Tablet (81 mg) by mouth daily. buPROPion (WELLBUTRIN SR) 100 MG 12 hour release tablet Take 1 Tablet (100 mg) by mouth every other day. colesevelam (WELCHOL) 625 MG tablet Take 1 Tablet (625 mg) by mouth two times a day with meals. diphenoxylate-atr opine (LOMOTIL) 2.5-0.025 MG tablet Take 2 Tablets by mouth three times a day as needed for Diarrhea. ferrous gluconate (FERGON) 324 (37.5 Fe) MG tablet Take 1 Tablet (324 mg) by mouth daily with meal. gabapentin (NEURONTIN) 300 MG capsule Take 2 Capsules (600 mg) by mouth daily at bedtime. 03/09/2014 aienwx-qnqgrybb-z mylase ([id number]) [id number] units per capsule-delayed release particles Take 1 Capsule by mouth two times a day. mycophenolate (MYFORTIC) 360 MG Take 1 Tablet (360 mg) by mouth two times a day. 10/21/2024 pantoprazole (AKA PROTONIX) 40 MG tablet Take 1 Tablet (40 mg) by mouth two times a day. 07/13/2014 rosuvastatin (CRESTOR) 10 MG tablet Take 1 Tablet (10 mg) by mouth daily at bedtime. 10/21/2024 sodium bicarbonate 650 MG tablet Take 1 Tablet (650 mg) by mouth two times a day. sodium chloride (OCEAN) 0.65 % nasal solution Place 1 Anderson into both nostrils every 1 hour as needed for Congestion. tacrolimus (AKA PROGRAF) 1 MG capsule Take 2 Capsules (2 mg) by mouth two times a day. 09/05/2014 topiramate (TOPAMAX) 50 MG tablet Take 1 Tablet (50 mg) by mouth two times a day. 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 During her prior hospital stay, he had many complications, ultimately very weak and discharge to transitional care unit. She was able to secure placement at 1 of 2 facilities that have inpatient dialysis since she does not have outpatient dialysis set up yet. Upon admission there, she has been complaining of bilateral hip pain, worse in the right. Reportedly, patient says she was only getting Tylenol. I spoke with the facility, who said they has been contacting the [facility] for stronger pain meds, but declined. This morning, patient was unable to get off the toilet and was irritated that the facility took 45 minutes to get her. Her put her in their personal vehicle and left AMA. I spoke with the facility, she no longer has a bed available there The patient says that she has had progressive right hip pain over the past few days sits started while at the [facility]. She appears diffusely anasarca with swelling in the shins, thighs, bilateral hips with significant swelling, arms and dorsum of hands. Patient and say this is a new finding over the past 48 hours. She was 1st evaluated by the ED physician Due to historian physical exam, added on an albumin, which is now 2.0, down from 3.5 several days ago. With her worsening hypoalbuminemia leading to diffuse anasarca and worsening pain, agree with inpatient admission to given this patient's complexity, would be best served at a facility with transplant Nephrology. I spoke to their emergency department physician, who is accepting the for an ED to ED transfer. Memo Porter MD documented in this encounter ED Notes * Melanie Ly RN - 10/23/2024 1:50 AM CDT Emergency Center Nursing Discharge Note Discharge vital signs: BP (!) 163/78 Pulse 87 Temp 36.8 ??C (98.2 ??F) (Oral) Resp 16 SpO2 98% Roxanna Monzon is a 58 y.o. female discharged from emergency center to [facility] ED accompanied by spouse and medics. All questions and additional needs were addressed. Prescriptions and follow-up instructions were provided, patient able to teach back specifics of discharge instructions. Belongings accounted for, atthe time of discharge. The patient is alert, vitals are stable, no other apparent problems noted. Patient endorses pain, at bedside to follow in private car to facility. * Socrates Ly MD - 10/22/2024 9:18 PM CDT Emergency Center Note History of Present Illness Chief Complaint Post-op HPI Roxanna Monzon is a 58 y.o. female with a recent S/p kidney transplant and history of CAD, DVT, PE, who is anticoagulated, Stage 3b chronic kidney disease , and type 1 diabetes mellitus who presents post operatively. The patient had s/p kidney transplant on 10/14 was put into TCU for rehab. The patient presents to the ED because she was pulled out of the TCU due to inadequate care and her family is unsure on where to go because they are unable to take care of her at home. She is not having any post-operative complications at the moment. Since TCU admission she has had 4 rounds of dialysis with the most recent round being today. She is still on immunosuppressants. She is unsure if she is back on Eliquis, but her TCU discharge paper notes that she is back on it. She has no other abdominal surgeries planned. Independent Historian as detailed above. Review of External Notes Discharge summary from [facility] 10/21: 1. Kidney replaced by transplant Z94.0 2. Hematoma of left kidney, initial encounter S37.012A 3. Anemia due to blood loss, acute D62 4. Nontraumatic hematoma of soft tissue M79.81 5. 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) Z94.83 6. Dyspnea, unspecified type R06.00 7. 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 Please refer to Transplant Nephrology Progress Note Oct.21 for details on hospitalization # DDKT (SPK): PAUL-D, HD Oct.17, , (3rd) - Kidney bx with ATI, chronic changes 20% glomerulosclerosis, severe vascular changes cv3 and ah3 - PAUL felt secondary to multifactorial ATN (hypotension, blood loss anemia, perinephric hematoma with mass effect, contrast, embolization) - CKD stage 3b: Baseline Creatinine: ~ 1.6-1.8 - Proteinuria: 1.9 g - DSA: neg on last check, hx of Low level DSA (<1000 mfi) to DPB1, dnDSA at that time - BK Viremia: Not checked recently due to time from transplant Kidney Tx Biopsy: 2024 (ATI, chronic changes-20% glomerulosclerosis, severe vascular changes cv3 ah3) & 2019: ATI, CaP crystals, mild IFTA # Post Kidney Biopsy Bleed: Slight trend down in hemoglobin, although could be partially dilutional. - Kidney Tx Bx:Oct.04->resumed sulma Oct.05 - Oct.13 Hb-5.8, CT a/p showed moderate perinephric hematoma within the transplanted kidney and LLQwith active contrast extravasation (10 cm X 10cm); she received 2 U PRBCs and Kcentra - IR embolization :angiograms initially did not reveal a definite bleed, but resistance to antegrade flow likely related to mass effect from the hematoma. Ultimately, a small extrav identified from adistal anterior renal artery branch which was embolized - Patient to OR 10/14 for abdominal washout of perinephric hematoma. Good blood flow to kidney. 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 - Changes:adjust tacrolimus to goal, will continue to hold everolimus while on MPA ~4-6 weeks postop and PAUL recovery if tolerates from GI standpoint # Infection Prophylaxis: - PJP: None. Last CD4 Level: 1261 () # Neurogenic Orthostatic Hypotension: Orthostatic hypotension; Goal BP: due to symptoms and variability, goal to keep in reasonable range - Previously on Midodrine, Florinef, and droxidopa 600mg daily without improvement. - Changes: not at this time # Acute Blood Loss Anemia: in the setting of post biopsy bleed,perinephric hematoma prbc's serial Hb checks Anemia of hx of Autoimmune Hemolytic Anemia:treated with steroids and rituximab in 2016, ultimatelyunderwent splenectomy in 2016. # H/o DVT/PE: Apixaban held - s/p K centra due to hemodynamically significant bleed post kidney bx - resumed apixiban per surgery Oct.17 # Hx of Recurrent Clostridium Difficile Infections # Chronic Diarrhea: -TSH and celiac serologies were negative in 10/2021 - Creon 24 TID # Mineral Bone Disorder: - Secondary renal hyperparathyroidism; PTH level: Not checked recently On treatment: None - Vitamin D; level: Normal On supplement: No - Calcium; level: Normal On supplement: No - Phosphorus; level: Normal On supplement: No # Hyperkalemia: Multifactorial 2/2 PAUL, hematoma, CNI: trial of medical management for now but 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 - Would also do gentle hydration with 1 liter IV fluids of 150 meq sodium bicarbonate in sterile water. - Could restart fludrocortisone 0.1 mg bid x 2-3 days to aid BP and hyperkalemia. # Other Significant PMH: - CAD, s/p PCI: Asymptomatic. - GERD: on PPI. - Hx of Abnormal LFTs: Previous liver biopsy 12/2015 showed centrilobular hepatocyte atrophy and necrosis with marked iron deposition. No evidence of hemophagocytic lymphohistiocytosis. LFTs normalized - Hx of Recurrent UTIs: no recent recurrence, prior PVR normal , referred to urology but didn't complete cystoscopy # Transplant History: Etiology of Kidney Failure: Diabetes mellitus type 1 Tx: SPK Transplant: 01/21/2014 (Kidney / Pancreas) Significant transplant-related complications: EBV Viremia, Recurrent UTIs and Frequent Infections Past Medical History Medical History and Problem List Past Medical History[1] Problem List[2] Pancreas transplanted Kidney transplanted Insomnia HTN (hypertension) CAD (coronary artery disease) Neuropathy Type 1 diabetes mellitus Orthostatic hypotension Medications aspirin 325 MG tablet Caffeine 200 MG calcium carbonate-vitamin D (AKA OSCAL D) 500-200 MG-UNIT tablet everolimus (AFINITOR) 0.75 MG tablet fludrocortisone (AKA FLORINEF) 0.1 MG tablet gabapentin (AKA NEURONTIN) 600 MG tablet Magnesium Chloride-Calcium 64-106 MG TBEC midodrine (AKA PROAMATINE) 5 MG tablet pantoprazole (AKA PROTONIX) 40 MG tablet potassium chloride (AKA K-JOVITA) 20 MEQ packet sodium chloride 1 G tablet sulfamethoxazole-trimethoprim (BACTRIM) 400-80 MG tablet tacrolimus (AKA PROGRAF) 0.5 MG capsule tacrolimus (AKA PROGRAF) 1 MG capsule venlafaxine (AKA EFFEXOR XR) 75 MG 24 hour release capsule warfarin (AKA COUMADIN) 5 MG tablet Surgical History Past Surgical History[3] Physical Exam Triage Vitals Temp 10/22/242015 36.8 ??C (98.2 ??F) Temp src 10/22/242015 Oral Pulse 10/22/242015 78 Resp 10/22/242017 (!) 22 BP 10/22/242015 111/55 SpO2 10/22/242015 97 % Physical Exam Nursing note and vitals reviewed. Constitutional: Chronically-ill appearing, Alert, cooperative, appropriate. HENT: Head: Atraumatic. Eyes: Conjunctivae are normal. Pulmonary/Chest: Effort normal, no respiratory distress. Dialysis catheter at her right chest wall. Abdominal: Incision site closed with katleynn over the abdomen. no erythema, no discharge. Minimallytender, baseline per pt. Neurological: Pt is alert, no focal deficits, Generally weak in her arms and legs at baseline per pt/family Skin: No rash noted. Psychiatric: Normal mood and affect. Musculoskeletal: Moderate pitting edema of the legs at baseline per family. Vitals Trending Patient Vitals for the past 24 hrs: BP Temp Temp src Pulse Resp SpO2 10/22/24 2309 -- -- -- 84 -- 97 % 10/22/24 2300 (!) 167/75 -- -- 84 -- 96 % 10/22/24 2230 (!) 162/82 -- -- 82 -- 95 % 10/22/24 2200 (!) 166/76 -- -- 83 18 95 % 10/22/242029 (!) 186/99 -- -- 81 -- 97 % 10/22/242017 -- -- -- -- (!) 22 -- 10/22/242015 111/55 36.8 ??C (98.2 ??F) Oral 78 -- 97 % Diagnostics Lab Results Results for orders placed or performed during the hospital encounter of 10/22/24 Extra Lavender top tube Result Value Ref Range Extra Lavender Top Drawn Specimen will be held for 3 days Extra Light Green Tube Result Value Ref Range Extra Light Green Tube Drawn Specimen will be held for 5 days Extra Blue top tube Result Value Ref Range Extra Blue Top Drawn Specimen will be held for 24 hours INR/Protime Result Value Ref Range Protime 24.4 (H) 11.8 - 14.6 Seconds INR 2.3 (H) 0.9 - 1.1 Extra Light Green On Ice Tube Result Value Ref Range Extra Light Green On Ice Tube Drawn Specimen will be held for 5 days Basic Metabolic Panel Result Value Ref Range Sodium 136 136 - 145 mmol/L Potassium 3.6 3.5 - 5.1 mmol/L Chloride 97 (L) 98 - 109 mmol/L CO2 27 20 - 29 mmol/L Anion Gap 12 6 - 16 mmol/L Calcium 7.8 (L) 8.4 - 10.4 mg/dL BUN 26 7 - 26 mg/dL Creatinine 2.53 (H) 0.55 - 1.02 mg/dL Glucose 94 70 - 100 mg/dL GFR, Estimated 21 (L) >60 mL/min/1.73m2 Complete Blood Count-W/Diff Result Value Ref Range WBC 14.4 (H) 3.5 - 10.5 x10(9)/L RBC 2.86 (L) 3.90 - 5.03 x10(12)/L Hemoglobin 7.8 (L) 12.0 - 15.5 g/dL HCT 23.8 (L) 34.9 - 44.5 % MCV 83.2 80.0 - 100.0 fL MCH 27.3 (L) 27.6 - 33.3 pg MCHC 32.8 31.5 - 35.2 g/dL RDW 17.5 (H) 11.9 - 15.5 % Platelets 157 150 - 450 x10(9)/L Automated NRBC 0 <=0 /100 WBC Albumin Only (Serum) Result Value Ref Range Albumin 2.0 (L) 3.5 - 5.0 g/dL Differential Result Value Ref Range RBC Morphology Reviewed Platelet Estimate Adequate Adequate Neutrophil Absolute 12.8 (H) 1.7 - 7.0 10(9)/L Lymphocyte Absolute 0.4 (L) 1.0 - 4.8 10(9)/L Monocyte Absolute 1.1 (H) 0.2 - 0.9 10(9)/L Eosinophil Absolute 0.1 0.0 - 0.5 10(9)/L Basophil Absolute 0.0 0.0 - 0.3 10(9)/L ED Course Medications Administered Medications As of 10/22/242311 fentaNYL (SUBLIMAZE) injection 25 mcg (mcg) Total dose: 125 mcg Date/Time Rate/Dose/Volume Action Route Admin User 10/22/242125 25 mcg Given Intravenous Ines Kaba RN 0 100 mcg Given Intravenous Melanie Ly RN ED Course Clinical Impressions as of 10/22/242311 Hypertension, unspecified type (HRC) End stage renal disease (HRC) Post-operative pain MDM Roxanna Monzon is a 58 y.o. female with a history of kidney transplant, pancreatic transplant, with recent kidney biopsy complicated by hematoma requiring embolization and later operative washout, presenting today with this satisfaction and concerns regarding their TCU. They left AMA after having her n ormal dialysis. Main concern is lack of attention and responding to her pain, leaving her on the toilet, etc.. They deny any new medical concerns. They do note ongoing pain postoperatively that is not changing or worsening today. She does have some increasing swelling in her lower extremities that has been going for the last several days as well. However, they are primarily here in hopes of goingto a different TCU. I spoke with the on-call hospitalist, Dr. Burch, who did speak at length with the patient and family. Given her complex medical history, some potential new hypoalbuminemia and edema, she would not be appropriate for [facility] admission given possible need for transplant medicine consultation or other post-surgical issues. He did speak with the medical team at the [facility], who would agree with transfer there and they accepted an ER to ER transfer. Please see Dr. Burch's note for further details. Patient's pain is under good control here and she will be transferred via EMS in this regard. Disposition Transferred via EMS to [facility] emergency center. Acceptance obtained by Dr. Burch (see his note for details). Diagnosis Final diagnoses: [I10] Hypertension, unspecified type (HRC) [N18.6] End stage renal disease (HRC) [G89.18] Post-operative pain I, Tata De Paz, am serving as a scribe at 11:12 PM on 10/22/2024 to document services personally performed by Socrates Ly MD based on my observations and the provider's statements to me. [1] No past medical history on file. [2] Patient Active Problem List Diagnosis Pancreas transplanted (HRC) Kidney transplanted (HRC) Insomnia HTN (hypertension) (HRC) CAD (coronary artery disease) (HRC) Neuropathy Type 1 diabetes mellitus (HRC) Orthostatic hypotension [3] No past surgical history on file. Socrates Ly MD 10/22/24 7485 documented in this encounter Plan of Treatment Not on file documented as of this encounter Procedures Procedure Name Priority Date/Time Associated Diagnosis Comments EXTRA LAVENDER TOP TUBE STAT 10/22/2024 9:21 PM CDT EXTRA BLUE TOP TUBE STAT 10/22/2024 9 :21 PM CDT CBC AND DIFFERENTIAL PANEL STAT Add-On 10/22/2024 9:21 PM CDT RAINBOW DRAW AND HOLD STAT 10/22/2024 9:21 PM CDT EXTRA LIGHT GREEN TUBE STAT 10/22/2024 9:21 PM CDT EXTRA LIGHT GREEN TOP ON ICE TUBE Routine 10/22/2024 9:21 PM CDT COMPLETE BLOOD COUNT-W/DIFF STAT Add-On 10/22/2024 9:21 PM CDT BASIC METABOLIC PANEL STAT Add-On 10/22/2024 9:21 PM CDT DIFFERENTIAL STAT 10/22/2024 9:21 PM CDT ALBUMIN Add-On 10/22/2024 9:21 PM CDT INR/PROTIME STAT 10/22/2024 9:21 PM CDT documented in this encounter Results * (ABNORMAL) Differential (10/22/2024 9:21 PM CDT) RBC Morphology Reviewed 10/22/2024 10:27 PM T [facility] Platelet Estimate Adequate Adequate 10/22/2024 10:27 PM T [facility] Neutrophil Absolute 12.8(H) 1.7 - 7.0 10(9)/L 10/22/2024 10:27 PM T [facility] Lymphocyte Absolute 0.4(L) 1.0 - 4.8 10(9)/L 10/22/2024 10:27 PM T [facility] Monocyte Absolute 1.1(H) 0.2 - 0.9 10(9)/L 10/22/2024 10:27 PM T [facility] Eosinophil Absolute 0.1 0.0 - 0.5 10(9)/L 10/22/2024 10:27 PM T [facility] Basophil Absolute 0.0 0.0 - 0.3 10(9)/L 10/22/2024 10:27 PM CDT [facility] Blood Venipuncture / Unknown 10/22/2024 9:21 PM CDT 10/22/2024 9:25 PM CDT us Socrates Ly MD LAB_1 Final Resul t Performing Organization Address [facility] Co de Phone Number [facility] CLIA: [id number] [address] * (ABNORMAL) Albumin Only (Serum) (10/22/2024 9:21 PM CDT) Pathologist [facility] Albumin 2.0(L) 3.5 - 5.0 g/dL 10/22/2024 10:38 PM CDT [facility] Blood Venipuncture / Unknown 10/22/2024 9:21 PM CDT 10/22/2024 9:25 PM CDT us Memo Porter MD LAB_1 Final Resu lt Performing Organization Address [facility] de Phone Number [facility] CLIA: [id number] [facility] [address] * (ABNORMAL) Complete Blood Count-W/Diff (10/22/2024 9:21 PM CDT) WBC 14.4(H) 3.5 - 10.5 x10(9)/L 10/22/2024 10:27 PM T [facility] RBC 2.86(L) 3.90 - 5.03 x10(12)/L 10/22/2024 10:27 PM [facility] Hemoglobin 7.8(L) 12.0 - 15.5 g/dL 10/22/2024 10:27 PM T [facility] HCT 23.8(L) 34.9 - 44.5 % 10/22/2024 10:27 PM [facility] MCV 83.2 80.0 - 100.0 fL 10/22/2024 10:27 PM [facility] MCH 27.3(L) 27.6 - 33.3 pg 10/22/2024 10:27 PM [facility] MCHC 32.8 31.5 - 35.2 g/dL 10/22/2024 10:27 PM [facility] RDW 17.5(H) 11.9 - 15.5 % 10/22/2024 10:27 PM [facility] Platelets 157 150 - 450 x10(9)/L 10/22/2024 10:27 PM [facility] Automated NRBC 0 <=0 /100 WBC 10/22/2024 10:27 PM [facility] Blood Venipuncture / Unknown 10/22/2024 9:21 PM CDT 10/22/2024 9:25 PM CDT us Socrates Ly MD LAB_1 Final Resul t [facility] CLIA: [id number] [address] [employer] [address] * (ABNORMAL) Basic Metabolic Panel (10/22/2024 9:21 PM CDT) Sodium 136 136 - 145 mmol/L 10/22/2024 9:55 PM [facility] Potassium 3.6 3.5 - 5.1 mmol/L 10/22/2024 9:55 PM [facility] Chloride 97(L) 98 - 109 mmol/L 10/22/2024 9:55 PM [facility] CO2 27 20 - 29 mmol/L 10/22/2024 9:55 PM [facility] Anion Gap 12 6 - 16 mmol/L 10/22/2024 9:55 PM [facility] Calcium 7.8(L) 8.4 - 10.4 mg/dL 10/22/2024 9:55 PM [facility] BUN 26 7 - 26 mg/dL 10/22/2024 9:55 PM [facility] Creatinine 2.53(H) 0.55 - 1.02 mg/dL 10/22/2024 9:55 PM [facility] Glucose 94 70 - 100 mg/dL 10/22/2024 9:55 PM [facility] Comment:The given reference range is for the fasting state. Non-fasting reference range for glucose is 70 - 180 mg/dL. GFR, Estimated 21(L) >60 mL/min/1.7 3m2 10/22/2024 9:55 PM [facility] Blood Venipuncture / Unknown 10/22/2024 9:21 PM CDT 10/22/2024 9:25 PM CDT us Socrates Ly MD LAB_1 Final Resul t Performing Organization Address [facility] Co de Phone Number [facility] CLIA: [id number] [address] * Extra Light Green On Ice Tube (10/22/2024 9:21 PM CDT) Extra Light Green On Ice Tube Drawn Specimen will be held for 5 days 10/22/2024 11:00 PM [facility] Blood Venipuncture / Unknown 10/22/2024 9:21 PM CDT 10/22/2024 9:25 PM CDT us Basil Flynn MD LAB_1 Final Result Performing Organization Address City/[facility]/ZIP Co de Phone Number [facility] CLIA: [id number] [address] * (ABNORMAL) INR/Protime (10/22/2024 9:21 PM CDT) Protime 24.4(H) 11.8 - 14.6 Seconds 10/22/2024 9:39 PM T [facility] INR 2.3(H) 0.9 - 1.1 10/22/2024 9:39 PM T [facility] Blood Venipuncture / Unknown 10/22/2024 9:21 PM CDT 10/22/2024 9:25 PM CDT Narrative [facility] - 10/22/2024 9:39 PM CDT If you take an anticoagulant medicine called warfarin, your doctor or clinician may establish a normal range for you that is different from the baseline range shown. us Basil Flynn MD LAB_1 Final Result Performing Organization Address City/[facility]/ZIP Co de Phone Number [facility] CLIA: [id number] [address] * Extra Blue top tube (10/22/2024 9:21 PM CDT) [facility] Extra Blue Top Drawn Specimen will be held for 24 hours 10/22/2024 11:00 PM CDT [facility] Blood Venipuncture / Unknown 10/22/2024 9:21 PM CDT 10/22/2024 9:25 PM CDT us Basil Flynn MD LAB_1 Final Result Performing Organization Address [facility] Co de Phone Number [facility] CLIA: [id number] [address] * Extra Light Green Tube (10/22/2024 9:21 PM CDT) Pathologist [facility] Extra Light Green Tube Drawn Specimen will be held for 5 days 10/22/2024 11:00 PM CDT [facility] Blood Venipuncture / Unknown 10/22/2024 9:21 PM CDT 10/22/2024 9:25 PM CDT us Basil Flynn MD LAB_1 Final Result Performing Organization Address [facility] Co de Phone Number [facility] CLIA: [id number] [address] * Extra Lavender top tube (10/22/2024 9:21 PM CDT) Extra Lavender Top Drawn Specimen will be held for 3 days 10/22/2024 11:00 PM CDT [facility] Blood Venipuncture / Unknown 10/22/2024 9:21 PM CDT 10/22/2024 9:25 PM CDT us Basil Flynn MD LAB_1 Final Result [facility] CLIA: [id number] [address] [employer] [place] [phone], [facility] documented in this encounter Visit Diagnoses Diagnosis Hypertension, unspecified type (HRC) End stage renal disease (HRC) End stage renal disease Post-operative pain Other acute postoperative pain Acute renal failure superimposed on chronic kidney disease, on chronic dialysis ([facility]) * Triage Assessment Note - Susan Rodriguez V RN - 10/22/2024 8:15 PM CDT Pt comes in with post op pain, pt had surgery a week ago Thursday. Pt went to a TCU for rehab, pulled pt from TCU due to safety concerns and brought pt here. Pt had dialysis today Pt is in severe pain, had to help pt from car to wheelchair documented in this encounter Administered Medications Inactive Administered Medications - up to 3 most recent administrations Medication Order MAR Action Action Date Dose Rate Site fentaNYL (SUBLIMAZE) injection 25 mcg 25 mcg, Intravenous, Q15MIN PRN, Pain, Starting on 10/22/24 at 2112, Until 10/23/24 at 0355, For 4 doses Given 10/23/2024 12:20 AM CDT 25 mcg Given 10/22/2024 11:03 PM CDT 100 mcg Given 10/22/2024 9:26 PM CDT 25 mcg sodium chloride 0.9% injection 10-60 mL 10-60 mL, Intravenous, PRN, Line Patency, Line Care, Starting on 10/22/24 at 2107, Until 10/23/24 at 0355, For 8 hours documented in this encounter Active and Recently Administered Medications Times are shown in CDT. PRN Medication Order 10/21/2024 10/22/2024 10/23/2024 fentaNYL (SUBLIMAZE) injection 25 mcg 25 mcg, Intravenous, Q15MIN PRN, Pain, Starting on 10/22/24 at 211, Until 10/23/24 at 0355, For 4 doses 2125 (Given - Provider: Ines Kaba RN)2303 (Given - Provider: Melanie Ly, SONIA) 0020 (Given - Provider: Melanie Ly RN) sodium chloride 0.9% injection 10-60 mL 10-60 mL, Intravenous, PRN, Line Patency, Line Care, Starting on 10/22/24 at 2107, Until 10/23/24 at 0355, For 8 hours documented in this encounter Care Teams Metal Window Frame Maker Relationship Specialty [place] [address] [place] [address] PCP - General Family Practice 10/22/24 documented as of this encounter
--- OUTSIDE RECORDS SUMMARY | 2024-11-09 14:05 | XMS_ITS | Encounter Summary ---
Author Organization [facility] Address [address] [place] [address] Care Team Providers Care Event Technician Name Role Phone Elsewhere, Pcp Primary Care Provider Unavailabl e Encounter Details Date Type Department Care Team (Latest Contact Info) Description 11/09/2024 2:05 PM CDT - 11/09/2024 11:59 PM CDT Hospital Encounter Department of Laboratory Medicine in [place], [place] [address] [place] [address] Giorgi Phillips Jr., D.O. [address] [place] [phone] Failure Renal Acute (Acute Kidney Injury); Transplant Renal (HCC); Anemia Of Renal Failure Chronic Kidney Disease On Erythropoietin; Hyperparathyroidism Renal Secondary (HCC); Chronic Kidney Disease (CKD), Stage 3b Glomerular Filtration Rate (GFR) 30 To 44 (HCC); Dialysis Dependent; Anemia Discharge Disposition: Home or Self Care Social History Tobacco Use Types Packs/Day Years Used Date Smoking Tobacco: Former Cigarettes Passive Smoke Exposure: Current Smokeless Tobacco: Never Alcohol Use Standard Drinks/Week Comments Not Currently [...] place to sleep or slept in a penitentiary (including now)? No 07/09/2020 Education Answer Date Recorded What is the highest level of school you have completed or the highest degree you have received? Some college, no degree 07/09/2020 Comments No Sex and Gender Information Value Date Recorded Sex Assigned at Not on file Legal Sex Female 2:39 PM POLITICAL DIRECTOR Gender Identity Not on file Sexual Orientation Not on file documented as of this encounter Medications at Time of Discharge acetaminophen (TylenoL) 500 mg tablet Take 1,000 mg by mouth. buPROPion XL (Wellbutrin XL) 150 mg 24 hr tablet Take 1 tablet by mouth daily. 03/12/2022 cholecalciferol (VITAMIN D3) 50 mcg (2,000 Unit) tablet 125mcg daily 03/12/2022 citalopram (CeleXA) 20 mg tablet Take 20 mg by mouth daily. 11/29/2019 colesevelam (WELCHOL) 625 mg tablet 07/02/2022 dilTIAZem (TIAZAC/TAZTIA XT) 180 mg ER capsule Take 180 mg by mouth. 05/11/2012 Eliquis 5 mg tablet Take 1 tablet by mouth 2 (two) times a day. 01/04/2024 ferrous gluconate (Fergon) 324 mg (38 mg iron) tablet Take 1 tablet by mouth daily. 06/19/2023 gabapentin (NEURONTIN) 300 mg capsule Take 300 mg by mouth 2 (two) times a day. 09/03/2019 lactobacillus-bifido bacterium-streptococ cus (THER-BIOTIC COMPLETE) 25 billion CFU Take by mouth. iagutd-ixajpmuo-sdtm ase (Creon) 12,000-38,000-60,[address] capsule Take 2 capsules by mouth every 8 (eight) hours. 04/16/2022 MAGNESIUM CHLORIDE ORAL Take 2 tablets by mouth daily. 09/05/2014 ondansetron ODT (ZOFRAN-ODT) 4 mg disintegrating tablet Take 1 tablet by mouth as needed. 03/04/2012 pantoprazole (PROTONIX) 40 mg EC tablet Take 1 tablet by mouth daily. 05/19/2020 rosuvastatin (CRESTOR) 40 mg tablet Take 1 tablet by mouth at bedtime. 07/04/2020 sirolimus (RAPAMUNE) 1 mg tablet Take 2 mg by mouth daily. 09/04/2019 sodium chloride 1 gram tablet Take 1 g by mouth. 07/13/2014 tacrolimus (PROGRAF) 1 mg capsule Take 2.5 mg by mouth 2 (two) times a day. 06/21/2020 topiramate (TOPAMAX) 50 mg tablet Take 50 mg by mouth. 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 LAB BLOOD BANK T EST ORDERABLES Final Result [facility] [address] [place] [address], [facility] NPRG [place] [address] [place] [address] * Testing Location (11/09/2024 2:16 PM CDT) Testing Location [facility] 11/09/2024 2:19 PM CDT NPRG Blood 11/09/2024 2:16 PM CDT 11/09/2024 2:19 PM CDT Alli Prince APRN.N.P., M.S.N. LAB BLOOD BANK T EST ORDERABLES Final Result [facility] [address] [place] [address], [facility] NPRG [place] [address] [place] [address] * Type and Screen (with Reflex Antibody ID) (11/09/2024 2:16 PM CDT) ABO Group CANCELED NPRG Comment: ABO Group was cancelled on 11/09/2024 at 22:32; [id number]:00 Result canceled by the ancillary. Rh Type CANCELED NPRG Comment: RH Type was cancelled on 11/09/2024 at 22:32; [id number]:[id number]:00 Result canceled by the ancillary. Antibody Screen NEG 11/09/2024 3:41 PM CDT NPRG Type & Screen Expiration 11/12/2024 23:59 11/09/2024 10:32 PM CDT NPRG Blood (Blood, Venous) 11/09/2024 2:16 PM CDT 11/09/2024 2:19 PM CDT us Tuan Cisse APRN C.N.P., M.S.N. LAB BLOOD BANK T EST ORDERABLES Edited Result - Final [facility] [address] [place] [address], [place] NPRG [facility] [address] [place] [address] * (ABNORMAL) CBC with Differential, Blood (11/09/2024 2:16 PM CDT) Hemoglobin 6.4(L) 11.6 - 15.0 g/dL 11/09/2024 2:26 PM CDT NPRG Hematocrit 21.6(L) 35.5 - 44.9 % 11/09/2024 2:26 PM CDT NPRG Erythrocytes 2.25(L) 3.92 - 5.13 x10(12)/L 11/09/2024 2:26 PM CDT NPRG MCV 96.0 78.2 - 97.9 fL 11/09/2024 2:26 PM CDT NPRG RBC Distrib Width 16.5(H) 12.2 - 16.1 % 11/09/2024 2:26 PM CDT NPRG Platelet Count 854(H) 157 - 371 x10(9)/L 11/09/2024 2:26 PM CDT NPRG Leukocytes 7.7 3.4 - 9.6 x10(9)/L 11/09/2024 2:26 PM CDT NPRG Neutrophils 3.94 1.56 - 6.45 x10(9)/L 11/09/2024 2:26 PM CDT NPRG Lymphocytes 1.75 0.95 - 3.07 x10(9)/L 11/09/2024 2:26 PM CDT NPRG Monocytes 1.85(H) 0.26 - 0.81 x10(9)/L 11/09/2024 2:26 PM CDT NPRG Eosinophils 0.08 0.03 - 0.48 x10(9)/L 11/09/2024 2:26 PM CDT NPRG Basophils 0.06 0.01 - 0.08 x10(9)/L 11/09/2024 2:26 PM CDT NPRG Blood (Blood, Venous) 11/09/2024 2:16 PM CDT 11/09/2024 2:19 PM CDT us Giorgi Phillips Jr., D.O. 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
[2024-11-25] VITALS (26 sets, daily range): BP systolic 101–175; BP diastolic 55–96; PULSE 75–85; RESP 16–18; TEMP 35.8–37; O2SAT 96–99; BMI 17.9
--- OUTSIDE RECORDS SUMMARY | 2024-11-25 12:34 | XMS_ITS | Encounter Summary ---
Author Organization [facility] Address [address], [place] [address] Care Team Providers Care Analyst Market Intelligence Name Role Phone Robert Marley MD Primary Care Provider [phone] Encounter Details Date Type Department Care Team (Late st Contact Info) Description 10/22/2024 Lab Requisition [facility] [address] [place], [place] [address] Bisi Mejia MBBS [address] [place] [address] Kidney transplant status (HRC) Social History Tobacco Use Types Packs/Day Years [...] as of this encounter Plan of Treatment Scheduled Orders Name Type Priority Associated Diagnoses Orde r Schedule FK506 (Tacrolimus), [facility] Lab Routine Kidney transplant status (HRC) Ordered: 10/22/2024 documented as of this encounter Visit Diagnoses Diagnosis Kidney transplant status (HRC) documented in this encounter Care Teams Analyst Market Intelligence Relationship Specialty [place] [address] [place] [address] PCP - General Family Practice 10/22/24 documented as of this encounter
--- OUTSIDE RECORDS SUMMARY | 2024-11-25 12:35 | XMS_ITS | Clinical Summary ---
Author Organization [facility] Address [address] [place] [address] Care Team Providers Care Microbiology Analyst Name Role Phone Elsewhere, Pcp Primary Care Provider Unavailabl e Source Comments Patient records contain information from all sites at [facility]. For routine questions regarding patient records, call [phone] during business hours, M-F 8:00 AM - 5:00 PM Central Time. Record requests for emergency care only can be directed to [phone] at any time.[facility] Allergies Active Allergy Reactions Criticality Noted Date [...] Take 180 mg by mouth. 3 Active phvgim-slwfwzyq-zfu lase (Creon) 12,000-38,000-60,[address] [...] Active Problems Problem Noted Date Diagnosed Date Failure Renal Acute (Acute Kidney Injury) 2024 Transplant Renal 11/09/2024 Anemia Of Renal Failure Client Service Administrator laena Kidney Disease On Erythropoietin 11/09/2024 Hyperparathyroidism Renal Secondary 11/09/2024 Chronic Kidney Disease (CKD) , Stage 3b Glomerular Filtration Rate (GFR) 30 To 44 11/09/2024 Dialysis Dependent 11/09/2024 Cardiovascular Disease 06/05/2020 Encounters Date Type Department Care Team Description 11/17/2024 Documentation Division of Nephrology and Hypertension, [facility], in [place], [place] [address] [place] [phone] Tuan Cisse APRN, C.NWendy, M.S.N. 11/14/2024 Orders Only Division of Nephrology and Hypertension in [place], [place] [address] [place] [phone] External, Ordering ProviderDarci 11/11/2024 Documentation Division of Nephrology and Hypertension, [facility], in [place], [place] [address] [place] [phone] Tuan Cisse APRN, C.NWendy, M.S.N. 11/09/2024 2:05 PM CDT - 11/09/2024 11:59 PM CDT Hospital Encounter Department of Laboratory Medicine in [place], [place] [address] [place] [phone] Giorgi Phillips Jr., Abhijeet.O. Failure Renal Acute (Acute Kidney Injury); Transplant Renal (HCC); Anemia Of Renal Failure Chronic Kidney Disease On Erythropoietin; Hyperparathyroidis m Renal Secondary (HCC); Chronic Kidney Disease (CKD), Stage 3b Glomerular Filtration Rate (GFR) 30 To 44 (HCC); Dialysis Dependent; Anemia Discharge Disposition: Home or Self Care 11/09/2024 Orders Only Division of Nephrology and Hypertension, [facility], in [place], [place] [address] [place] [phone] Tuan Cisse APRN, C.N.P., M.S.N. Anemia (Primary Dx) 11/09/2024 Documentation Division of Nephrology and Hypertension in [place], [place] [address] [place] [phone] Giorgi Phillips Jr., D.O. 11/09/2024 Orders Only Division of Nephrology and Hypertension in [place], [place] [address] [place] [phone] Giorgi Phillips Jr., D.O. Failure Renal Acute (Acute Kidney Injury) (Primary Dx); Transplant Renal (HCC); Anemia Of Renal Failure Chronic Kidney Disease On Erythropoietin; Hyperparathyroidis m Renal Secondary (HCC); Chronic Kidney Disease (CKD), Stage 3b Glomerular Filtration Rate (GFR) 30 To 44 (HCC); Dialysis Dependent from Last 3 Months Immunizations Immunization Administration Dates Next Due PPSV23 [...] place to sleep or slept in a care home (including now)? No 07/09/2020 Education Answer Date Recorded What is the highest level of school you have completed or the highest degree you have received? Some college, no degree 07/09/2020 Comments No Sex and Gender Information Value Date Recorded Sex Assigned at Not on file Legal Sex Female 2:39 PM FOREIGN EXCHANGE DEALER Gender Identity Not on file Sexual Orientation Not on file Last Filed Vital Signs Vital Sign Reading Time Taken Comments Blood Pressure 104/66 02/17/2024 3:07 PM FOREIGN EXCHANGE DEALER Pulse 75 02/17/2024 3:07 PM FOREIGN EXCHANGE DEALER Temperature 36.5 C (97.7 F) 02/17/2024 3:07 PM FOREIGN EXCHANGE DEALER Respiratory Rate 20 02/17/2024 3:07 PM FOREIGN EXCHANGE DEALER Oxygen Saturation 98% 02/17/2024 3:07 PM FOREIGN EXCHANGE DEALER Inhaled Oxygen Concentration - - Weight 53.7 kg (118 lb 6.4 oz) 02/17/2024 3:09 P M FOREIGN EXCHANGE DEALER Height 167.6 cm (5' 6) 02/17/2024 3:09 PM FOREIGN EXCHANGE DEALER Body Mass Index 19.11 02/17/2024 3:09 PM FOREIGN EXCHANGE DEALER Plan of Treatment Health Maintenance Due Date Last Done Comments CT Colonography 1965 Cologuard 1965 FIT 1965 HIV Screening 1965 Office Visit for Blood Pressure Check / Re-check 1965 Hepatitis B Vaccines (1 of 3 - 19+ 3-dose series) 1984 Zoster Vaccines (1 of 2) 1984 Pneumococcal vaccine (50+ years) (4 of 4 - PCV20 or PCV21) 10/02/2020 10/03/2015, 07/07/2012, 10/02/2011, Additional history exists Depression Screening (Annual PHQ-2) 03/02/2024 COVID-19 Vaccine (4 - 2024- season) 2024 02/12/2021, 06/09/2020, 05/19/2020 Influenza Vaccine (#1) 2024 , 01/21/2022, 02/12/2021, Additional history exists Mammogram 08/24/2025 08/24/2024, 08/24/2024 Fasting Glucose for Diabetes Screening 11/17/2027 11/16/2024, 11/04/2024, 10/28/2024, Additional history exists DTaP,Tdap,and Td Vaccines (4 - Td or Tdap) 04/08/2029 04/08/2019, 05/22/2014, 09/23/2002, Additional history exists Lipid (Cholesterol) Screening 09/07/2029 09/07/2024, 03/31/2024, 12/01/2022, Additional history exists Colonoscopy 06/10/2033 06/11/2023, 07/31, 12/08/2011 Colorectal Cancer Screening 06/10/2033 Hepatitis B Screening Discontinued 10/17/2024 , 07/12/2023, 02/28/2012 HPV Vaccines Aged Out No longer eligi ble based on patient's age to complete this topic IPV Vaccines Aged Out No longer eligi ble based on patient's age to complete this topic Medical Devices Implanted Type Area Offensive Coordinator Device Identifier Shelf Expiration Date Model / Serial / Lot Implantable Port Implantable Port Chest Description:Port (left side) 2014 Stent Other Stent Other Heart Description:2 stents (2012) Procedures Procedure Name Priority Date/Time Associated Diagnosis Comments HEMOGLOBIN, B Routine 11/14/2024 6:15 AM CDT ABORH, RBC Routine 11/09/2024 2:16 PM CDT TESTING LOCATION Routine 11/09/2024 2:16 PM CDT TYPE AND SCREEN Routine 11/09/2024 2:16 PM CDT Anemia CBC WITH DIFFERENTIAL, B Routine 11/09/2024 2:16 PM CDT Failure Renal Acute (Acute Kidney Injury) Transplant Renal (HCC) Anemia Of Renal Failure Chronic Kidney Disease On Erythropoietin Hyperparathyroidism Renal Secondary (HCC) Chronic Kidney Disease (CKD), Stage 3b Glomerular Filtration Rate (GFR) 30 To 44 (HCC) Dialysis Dependent BASIC METABOLIC PANEL, S/P Routine 12/12/2019 2:40 PM CDT Osteomyelitis (HCC) HEPATITIS B SURFACE ANTIGEN Routine 02/28/2012 4:23 AM FOREIGN EXCHANGE DEALER LIPID PANEL, S Routine 02/03/2012 9:05 AM FOREIGN EXCHANGE DEALER COLONOSCOPY Routine 12/08/2011 9:12 AM CDT from Last 3 Months or Most Recently Relevant to Health Maintenance Results * (ABNORMAL) Hemoglobin (11/14/2024 6:15 AM CDT) EXT Hemoglobin 7.5(L) 12.0 - 16.0 gm/dL [facility] 11/14/2024 6:15 AM CDT Narrative [facility] - 11/14/2024 9:56 AM CDT External results verified in Extract by Katie Almaguer on 11/14/2024 at 10:41 AM. us Ordering Provider External M.D. LAB BLOOD ADD-ON Final Result [facility] [address] [place] [address], [facility] [phone] * Testing Location (11/09/2024 2:16 PM CDT) Testing Location [facility] DEFAULT 11/09/2024 2:19 PM CDT NPRG Blood 11/09/2024 2:16 PM CDT 11/09/2024 2:19 PM CDT Alli Prince APRN.N.P., M.S.N. LAB BLOOD BANK T EST ORDERABLES Final Result Performing Organization Address [facility]/ZIP Co de Phone Number [facility] [address] [place] [address], [facility] NPRG [place] [address] [place] [address] * ABO/Rh, RBC (11/09/2024 2:16 PM CDT) ABO Group A 11/09/2024 10: 28 PM CDT NPRG Rh Type NEG 11/09/2024 10: 29 PM CDT NPRG Blood 11/09/2024 2:16 PM CDT 11/09/2024 2:19 PM CDT Tuan Cisse APRN C.N.P., M.S.N. LAB BLOOD BANK T EST ORDERABLES Final Result Performing Organization Address City/[facility]/ZIP Co de Phone Number [facility] [address] [place] [address], [facility] [place] [address] [place] [address] * (ABNORMAL) CBC with Differential, Blood (11/09/2024 2:16 PM CDT) [facility] Hemoglobin 6.4(L) 11.6 - 15.0 g/dL 11/09/2024 [...] 11/09/2024 2:19 PM CDT us Giorgi Phillips Jr. D.O. LAB BLOOD ADD-ON Fin al Result [facility] [address] [place] [address], [place] NPRG [place] [address] [place] [address] * Type and Screen (with Reflex Antibody ID) (11/09/2024 2:16 PM CDT) ABO Group CANCELED NPRG Comment: ABO Group was cancelled on 11/09/2024 at 22:32; [id number]:[id number]:00 Result canceled by the ancillary. Rh Type CANCELED NPRG Comment: RH Type was cancelled on 11/09/2024 at 22:32; [id number]:32:00.000-05:00 Result canceled by the ancillary. Antibody Screen NEG 11/09/2024 3:41 PM CDT NPRG Type & Screen Expiration 11/12/2024 23:59 11/09/2024 10:32 PM CDT NPRG Blood (Blood, Venous) 11/09/2024 2:16 PM CDT 11/09/2024 2:19 PM CDT us Alli Prince APRN.N.P., M.S.N. LAB BLOOD BANK T EST ORDERABLES Edited Result - Final [place] [address] [place] [address], [facility] NPRG [place] [address] [place] [address] * Colonoscopy (12/08/2011 9:12 AM CDT) Anatomical Region Laterality Modality Other 12/08/2011 9:12 AM CDT us Nai Rasheed GI PROCEDURE ORDERABLES Fi nal Result from Last 3 Months or Most Recently Relevant to Health Maintenance Insurance [facility] MEDICARE Care Teams Microbiology Analyst Relationship Specialty Start Date End Date Elsewhere, Pcp PCP - General 05/04/20
--- OUTSIDE RECORDS SUMMARY | 2024-11-25 12:35 | XMS_ITS | Encounter Summary ---
Author Organization [facility] Address [address] [place] [address] Care Team Providers Care Refrigeration Plant Operator Name Role Phone Elsewhere, Pcp Primary Care Provider Unavailabl e Encounter Details Date Type Department Care Team (Late st Contact Info) Description 11/14/2024 Orders Only Division of Nephrology and Hypertension in [place], [place] [address] [place] [phone] External, Ordering Provider, Darci Social History Tobacco Use Types Packs/Day Years [...] place to sleep or slept in a prison (including now)? No 07/09/2020 Education Answer Date Recorded What is the highest level of school you have completed or the highest degree you have received? Some college, no degree 07/09/2020 Comments No Sex and Gender Information Value Date Recorded Sex Assigned at Not on file Legal Sex Female 2:39 PM [employer] Gender Identity Not on file Sexual Orientation Not on file documented as of this encounter Plan of Treatment Not on file documented as of this encounter Procedures Procedure Name Priority Date/Time Associated Diagnosis Comments HEMOGLOBIN, B Routine 11/14/2024 6:15 AM CDT documented in this encounter Results * (ABNORMAL) Hemoglobin (11/14/2024 6:15 AM CDT) EXT Hemoglobin 7.5(L) 12.0 - 16.0 gm/dL [facility] 11/14/2024 6:15 AM CDT Narrative [facility] - 11/14/2024 9:56 AM CDT External results verified in Extract by aKtie Almaguer on 11/14/2024 at 10:41 AM. us Ordering Provider External M.D. LAB BLOOD ADD-ON Final Result [facility] [address] [place] [address], [facility] [phone] documented in this encounter Visit Diagnoses Not on filedocumented in this encounter Care Teams Refrigeration Plant Operator Relationship Specialty Start Date End Date Elsewhere, Pcp PCP - General 05/04/20 documented as of this encounter
--- OUTSIDE RECORDS SUMMARY | 2024-11-25 12:35 | XMS_ITS | Encounter Summary ---
Author Organization [facility] Address [address] [place] [id number] Care Team Providers Care Ocular Care Technician Name Role Phone Elsewhere, Pcp Primary Care Provider Unavailabl e Encounter Details Date Type Department Care Team (Late st Contact Info) Description 11/09/2024 Orders Only Division of Nephrology and Hypertension, [facility], in [place], [place] [address] [place] [phone] Tuan Cisse, DESHAUN, C.N.P., M.S.N. [address] [place] [phone] Anemia (Primary Dx) Social History Tobacco Use Types [...] place to sleep or slept in a longterm (including now)? No 07/09/2020 Education Answer Date Recorded What is the highest level of school you have completed or the highest degree you have received? 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 Rh Type CANCELED NPRG Comment: RH Type was cancelled on 11/09/2024 at 22:32; [id number] Result canceled by the ancillary. Antibody Screen NEG 11/09/2024 3:41 PM CDT NPRG Type & Screen Expiration 11/12/2024 23:59 11/09/2024 10:32 PM CDT NPRG Blood (Blood, Venous) 11/09/2024 2:16 PM CDT 11/09/2024 2:19 PM CDT us Tuan Cisse APRN, C.N.P., M.S.N. LAB BLOOD BANK T EST ORDERABLES Edited Result - Final [facility] [address] [place] [address], [place] NPRG [facility] [address] [place] [phone] documented in this encounter Visit Diagnoses Diagnosis Anemia- Primary documented in this encounter Care Teams Ocular Care Technician Relationship Specialty Start Date End Date Elsewhere, Pcp PCP - General 05/04/20 documented as of this encounter
--- OUTSIDE RECORDS SUMMARY | 2024-11-25 12:35 | XMS_ITS | Encounter Summary ---
Author Organization [facility] Address [address] [place] [address] Care Team Providers Care Emergency Management Consultant Name Role Phone Elsewhere, Pcp Primary Care Provider Unavailabl e Encounter Details Date Type Department Care Team (Late st Contact Info) Description 11/09/2024 Orders Only Division of Nephrology and Hypertension in [place], [place] [address] [place] [phone] Giorgi Phillips Jr., D.O. [address] [place] [phone] Failure Renal Acute (Acute Kidney Injury) (Primary Dx); Transplant Renal (HCC); Anemia Of Renal Failure Chronic Kidney Disease On Erythropoietin; Hyperparathyroidism Renal Secondary (HCC); Chronic Kidney Disease (CKD), Stage 3b Glomerular Filtration Rate (GFR) 30 To 44 (HCC); Dialysis Dependent Social History Tobacco Use Types Packs/Day Years [...] place to sleep or slept in a fdc (including now)? No 07/09/2020 Education Answer Date Recorded What is the highest level of school you have completed or the highest degree you have received? Some college, no degree 07/09/2020 Comments No Sex and Gender Information Value Date Recorded Sex Assigned at Not on file Legal Sex Female 2:39 PM PROTECTION CONSULTANT Gender Identity Not on file Sexual Orientation Not on file documented as of this encounter Plan of Treatment Not on file documented as of this encounter Results * (ABNORMAL) CBC with Differential, Blood (11/09/2024 2:16 PM CDT) Pathologist [facility] Hemoglobin 6.4(L) 11.6 - 15.0 g/dL 11/09/2024 [...] D.O. LAB BLOOD ADD-ON Fin al Result [facility] [address] [place] [address], [facility] NPR[facility] [address] [place] [address] documented in this encounter Visit Diagnoses Diagnosis Failure Renal Acute (Acute Kidney Injury)- Primary Transplant Renal (HCC) Anemia Of Renal Failure Chronic Kidney Disease On Erythropoietin Hyperparathyroidism Renal Secondary (HCC) Chronic Kidney Disease (CKD), Stage 3b Glomerular Filtration Rate (GFR) 30 To 44 (HCC) Dialysis Dependent documented in this encounter Care Teams Emergency Management Consultant Relationship Specialty Start Date End Date Elsewhere, Pcp PCP - General 05/04/20 documented as of this encounter
--- OUTSIDE RECORDS SUMMARY | 2024-11-25 12:35 | XMS_ITS | Encounter Summary ---
Author Organization [facility] Address [address] [place] [address] Care Team Providers Care Cloth Laminating Supervisor Name Role Phone Elsewhere, Pcp Primary Care Provider Unavailabl e Encounter Details Date Type Department Care Team (Late st Contact Info) Description 11/09/2024 Documentation Division of Nephrology and Hypertension in [place], [place] [address] [place] [phone] Giorgi Phillips Jr., D.O. [address] [place] [phone] Social History Tobacco Use Types Packs/Day Years [...] place to sleep or slept in a [facility] (including now)? No 07/09/2020 Education Answer Date Recorded What is the highest level of school you have completed or the highest degree you have received? Some college, no degree 07/09/2020 Comments No Sex and Gender Information Value Date Recorded Sex Assigned at Not on file Legal Sex Female 2:39 PM TEST ARCHITECT Gender Identity Not on file Sexual Orientation Not on file documented as of this encounter Progress Notes * Giorgi Phillips Jr., D.O. - 11/09/2024 9:22 AM CDT Care coordination note-urgent result: She is a 58-year-old female with end-stage renal disease due to diabetic nephrosclerosis who is status post a recent very stormy course, where she was hospitalized from the 13 of October through [id number] of October, and then subsequently readmitted from the through the resulting from compl ications from a transplant biopsy. She suffered acute tubular necrosis following the complications of the perinephric hematoma requiring embolization and has been dialyzing at the [facility] dialysis unit. I was contacted this morning regards her CBC which was performed on Thursday which showed a hemoglobin of 6.8! Her renal function has been gratifyingly improving she has been making greater than 2.5 L of urine and we were awaiting a 24 hour urine result, and had tentatively allowed her to skip dialysis today on Thursday, until we had the 24 hour urine back. We are reaching out to her today. Recent history: Her hospitalizations were also complicated by the possibility of urinary tract infection. Her baseline serum creatinine following transplant in 2013 which was a combined donor kidney pancreas transplant at [facility] tends to be 1.6-1.8 mg/dL as her proteinuria was accelerating and her creatinine had increased to 1.9 mg/dL along with increasing proteinuria she was recommended to have biopsy. The kidney biopsy showed primarily acute tubular injury, with glomerulosclerosis, 20% chronic changes, and severe vascular changes. Her usual immunosuppression is tacrolimus 2 mg orally twice daily, and mycophenolate 360 mg twice daily, and she has been on sirolimus prior to the bleeds no prednisone. She has not required insulin.She has had severe orthostatic hypotension and difficult to manage labile blood pressure over the years. 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 I appreciate that she had been instructed to resume her apixaban on the . She is feeling quite wiped out as we spoke this morning. She does have connections with a primary care Dr.,(DR Yfn Marley) and is connected with the [facility] transplant program obviously. She does not feel short of breath she is not having chest pain. She always feels lightheaded when she stands, this is part of her dysautonomia and orthostatic hypotension for which he has previously been treated with midodrine and Droxidopa. We will proceed with immediate CBC. This situation we will develop through the day. Addendum: Her hemoglobin has declined yet further to 6.4 today As above I have asked her to hold her apixaban for now. We will arrange for her to be typed and crossed as soon as possible at the [facility]. We will then plan on unit of packed red blood cells to be infused hopefully tomorrow on her dialysis day. We will continue to plan for her to continue dialysis, her 24 hour urine is not back yet to assess her GFR. documented in this encounter Plan of Treatment Not on file documented as of this encounter Visit Diagnoses Not on filedocumented in this encounter Care Teams Cloth Laminating Supervisor Relationship Specialty Start Date End Date Elsewhere, Pcp PCP - General 05/04/20 documented as of this encounter
--- OUTSIDE RECORDS SUMMARY | 2024-11-25 12:35 | XMS_ITS | Encounter Summary ---
Author Organization [facility] Address [address] [place] [address] Care Team Providers Care Pickle Maker Name Role Phone Elsewhere, Pcp Primary Care Provider Unavailabl e Encounter Details Date Type Department Care Team (Late st Contact Info) Description 11/11/2024 Documentation Division of Nephrology and Hypertension, [facility], in [place], [place] [address] [place] [phone] Tuan Cisse, DESHAUN, C.N.P., M.S.N. [address] [place] [phone] Social History Tobacco Use Types Packs/Day Years [...] place to sleep or slept in a detention (including now)? No 07/09/2020 Education Answer Date Recorded What is the highest level of school you have completed or the highest degree you have received? Some college, no degree 07/09/2020 Comments No Sex and Gender Information Value Date Recorded Sex Assigned at Not on file Legal Sex Female 2:39 PM SCIENTIFIC LABORATORY SUPERVISOR Gender Identity Not on file Sexual Orientation Not on file documented as of this encounter Progress Notes * Tuan Cisse APRN, C.N.P., M.S.N. - 11/11/2024 1:10 PM CDT Roxanna Monzon called me this morning inquiring the reason for a repeat 24 hour urine creatinine on Thursday. I did apologize to her just now. She does not feel as good this morning as last evening after she received 1 unit of PRBC transfusion. She believes her hemoglobin is trending down again (autoimmune hemolytic anemia versus active bleeding from biopsy site). She continues to hold her oral Apixaban. She states she should be able to hold on without extra session of PRBC transfusion this afternoon. She will receive her IVIG (daily 5 days in a row) next week to help prevent red blood cell from breaking down by suppressing red blood cell destroying antibodies in the background of her autoimmune hemolytic anemia. Plan for Mrs. Roxanna Monzon is hold off hemodialysis, 24 hour urine creatinine, CBC and renal function panel, dialysis catheter dressing change and catheter flush on Thursday11/14/2024. Dr. Phillips will review the results on Thursday to decide whether we should move forward with dialysis catheter removal. Her primary Dr. Marley ([facility]) would be willing to check labs if her clearance is greater than 16cc/min. Her Oncologist will manage her hemoglobin level with pRBC transfusion if indicated and IVIG. I have entered this as a document in [facility] system. Plan is overseen by Dr. Gino Phillips documented in this encounter Plan of Treatment Not on file documented as of this encounter Visit Diagnoses Not on filedocumented in this encounter Care Teams Pickle Maker Relationship Specialty Start Date End Date Elsewhere, Pcp PCP - General 05/04/20 documented as of this encounter
--- OUTSIDE RECORDS SUMMARY | 2024-11-25 12:35 | XMS_ITS | Clinical Summary ---
Author Organization [facility] Address [address] [place] [address] Care Team Providers Care Reversal Print Inspector Name Role Phone Robert Akbar MD Primary Care Provider [facility], Branch Unavailable [phone] Allergies Active Allergy Reactions Criticality Noted Date Comments Blood-Group Specific Substance Other - Describe In Comment Field 07/12/2023 Patient has anti-N and a warm autoantibody. Blood products may be delayed. Draw patient 24 hours prior to transfusion. For [facility] testing, draw one red top and two [...] by mouth two times daily with meals. 11/22/19 23 Active topiramate (TOPAMAX) 50 mg tabletIndications :Headache syndrome TAKE 1 TABLET BY MOUTH 2 TIMES DAILY. 180 Tablet 3 12/07/19 24 Active aspirin (ECOTRIN) 81 mg enteric coated tabletIndications :Chronic deep vein thrombosis (DVT) of femoral vein of right lower extremity (HC) Take 1 Tablet (81 mg) by mouth once daily. 03/31/19 25 Active acetaminophen (TYLENOL EXTRA STRGTH) 500 mg tablet 1,000 mg every 6 hours if needed for Headache, Pain or Temp > (Specify). 08/30/20 25 Active diphenoxylate-atr opine (2.5-0.025 mg) (LOMOTIL) 2.5-0.025 mg tablet Take 2 Tablets by mouth 3 times daily if needed. 10/30/19 Active rosuvastatin calcium (ROSUVASTATIN 10 MG HALF TABLET) Take 10 mg by mouth at bedtime. 10/30/19 Active SODIUM BICARBONATE ORAL Take 650 mg by mouth two times daily. 10/30/19 Active sodium chloride (OCEAN) 0.65 % nasal solution Inhale 1 [place] in both nostrils every hour if needed. 10/30/19 Active tacrolimus (PROGRAF) 1 mg capsule Take 2 capsules. by mouth every 12 hours. 10/30/19 Active bupropion HCl (WELLBUTRIN XL ORAL) Take 100 mg by mouth once every other day. 10/30/19 Active gabapentin (NEURONTIN) 300 mg capsule Take 300 mg by mouth at bedtime. 10/30/19 Active dxuung-rknypikp-o mylase (CREON) 12,000-38,000 -60,000 unit cpDR delayed-release capsule Take 1 Capsule by mouth two times daily. 10/30/19 Active mycophenolate sodium ER (MYFORTIC) 360 mg tablet delayed release Take 360 mg by mouth every 12 hours. 10/30/19 Active pantoprazole (PROTONIX) 40 mg delayed-release tablet Take 40 mg by mouth two times daily. 10/30/19 Active oxyCODONE (ROXICODONE) 5 mg immediate release tablet [The details of the medication are not available because there are pending changes by a home health clinician.] 10/30/19 Active ondansetron (ZOFRAN ODT) [address] 4 mg on the tongue every 8 hours if needed. 10/30/19 Active apixaban (Eliquis) 5 mg tabletIndications :Chronic deep vein thrombosis (DVT) of both lower extremities, unspecified vein (HC) Take 1 Tablet (5 mg) by mouth two times daily. hold until 11/08/24 180 Tablet 3 10/30/19 Active doxycycline hyclate 100 mg capsuleIndication s:ABDOMEN/PELVIS INFECTION Take 100 mg by mouth two times daily. Take 1 capsule by mouth twice daily for 10 days Indications: ABDOMEN/PELVIS INFECTION 11/18/19 25 025 Active sennosides-docusa te sodium 8.6-50 mg capIndications:co nstipation Take 1 Tablet by mouth once daily if needed (constipation). Take 1-2 tabs by mouth daily as needed for constipation Indications: constipation Active tacrolimus (PROGRAF) 0.5 mg capsule Take 0.5 mg by mouth every 12 hours. Total daily dose = 4.5mg BID 03/25/19 24 Discontinu ed(*Medica tion adjustment ) tacrolimus (PROGRAF) 1 mg capsule Take 4 mg by mouth every 12 hours. Total daily dose = 4.5mg BID Discontinu ed(*Medica tion adjustment ) ferrous gluconate 324 mg (37 mg iron) tabletIndications :Anemia, unspecified type [The details of the medication are not available because there are pending changes by a home health clinician.] 90 Tablet 3 06/19/19 24 025 Discontinu ed(*Med complete/R egimen complete/L evel of care change) sirolimus (RAPAMUNE) 1 mg tablet Take 3 mg by mouth once daily. Discontinu ed(*Medica tion adjustment ) pantoprazole (PROTONIX) 40 mg delayed-release tabletIndications :Chronic GERD [The details of the medication are not available because there are pending changes by a home health clinician.] 90 Tablet 3 01/22/20 24 025 Discontinu ed(*Med complete/R egimen complete/L evel of care change) gabapentin (NEURONTIN) 300 mg capsuleIndication s:Autonomic neuropathy [The details of the medication are not available because there are pending changes by a home health clinician.] 180 Capsule 2 01/29/20 24 025 Discontinu ed(*Med complete/R egimen complete/L evel of care change) buPROPion (WELLBUTRIN XL) 150 mg Extended-Release tabletIndications :Anxiety and depression [The details of the medication are not available because there are pending changes by a home health clinician.] 90 Tablet 2 02/29/20 24 025 Discontinu ed(*Med complete/R egimen complete/L evel of care change) acetaminophen (TYLENOL EXTRA STRGTH) 500 mg tabletIndications :Acute back pain with radiculopathy [The details of the medication are not available because there are pending changes by a home health clinician.] 03/19/19 025 Discontinu ed(*Med complete/R egimen complete/L evel of care change) bybawx-nqijcbgb-e mylase (Creon) 12,000-38,000 -60,000 unit cpDR delayed-release capsule Take 2 Capsules by mouth every 8 hours. 07/28/19 025 Discontinu ed(*Medica tion adjustment ) rosuvastatin 40 mg tabletIndications :Mixed hyperlipidemia [The details of the medication are not available because there are pending changes by a home health clinician.] 06/08/19 025 Discontinu ed(*Med complete/R egimen complete/L evel of care change) traMADoL 50 mg tabletIndications :Cellulitis, unspecified cellulitis site [The details of the medication are not available because there are pending changes by a home health clinician.] 15 Tablet 5 2:46 PM CDT 06/08/19 025 Discontinu ed(*Med complete/R egimen complete/L evel of care change) apixaban (Eliquis) 5 mg tabletIndications :Chronic deep vein thrombosis (DVT) of femoral vein of right lower extremity (HC) [The details of the medication are not available because there are pending changes by a home health clinician.] 180 Tablet 3 09/24/19 025 Discontinu ed(Reorder (E-cancel not sent)) cephalexin 500 mg capsuleIndication s:ABDOMEN/PELVIS INFECTION Take 500 mg by mouth three times daily. 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 Yanet Guerrero RN Transition Signal Helper [phone] 09/24/2012 CAD, s/p stent x 2 07/1207/30/2012 [...] Problem Noted Date Diagnosed Date Resolved Date Sepsis 06/05/2024 11/04/2024 Community acquired pneumonia 03/01/2024 03/16/2024 Pneumonia of [...] shock 02/07/2023 02/13/2023 Severe sepsis 02/07/2023 06/15/2023 Otfgh-mh-qsydlfg kidney injury 02/07/2023 06/15/2023 History of DVT [...] 11/29/2012 Overview (03/11/2012): GFR< 20 03/2012 at [place] DVT (deep venous thrombosis) 03/05/2012 12/03/2015 Proteinuria 10/09/2011 07/30/2012 Orthostatic hypotension 08/05/201103/03 Diabetic autonomic neuropathy 05/15/2010 05/02/2016 Edema 01/22/2010 01/01/2015 Diabetes mellitus type I, 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, 01/1308/17/2009 05/02/2016 Encounters Date Type Department Care Team Description 11/24/2024 11:30 AM CDT Home Care Visit [facility] [address] [facility] [phone] Pao Munoz LPN DIRECTOR SOCIAL WELFARE - HOME VISIT 11/24/2024 9:45 AM CDT Home Care Visit [facility] [address] [place] [phone] Alexandra Barnett GEAR CODING MACHINE OPERATOR - HOME VISIT 11/24/2024 Home Care Visit [facility] [address] [place] [phone] Ashlie Lay RN CARE COORDINATION 11/23/2024 Home Care Visit [facility] [address] [place] [phone] Noni Ma, SONIA CARE COORDINATION 11/23/2024 Nurse Triage [facility] [address] [place] [address] Robert Akbar MD Questions (Wound vac) 11/22/2024 2:45 PM CDT Home Care Visit [facility] [address] [place] [phone] Noni Ma, SONIA SN - HOME VISIT 11/21/2024 12:30 PM CDT Home Care Visit [facility] [address] [place] [phone] Noni Ma RN SN - HOME VISIT 11/21/2024 10:00 AM CDT Home Care Visit [facility] [address] [place] [phone] Alexandra Barnett GEAR CODING MACHINE OPERATOR - HOME VISIT 11/20/2024 10:30 AM CDT Home Care Visit [facility] [address] [place] [phone] Ashley Noel, SONIA SN - HOME VISIT 11/20/2024 Telephone [facility] [address] [place] [phone] Ashley Noel, continuing education director 11/19/2024 10:30 AM CDT Home Care Visit [facility] [address] [place] [phone] Ashley Noel, SONIA SN - HOME VISIT 11/18/2024 3:00 PM CDT Home Care Visit [facility] [address] [place] [phone] Elida Blanchard RN SN - HOME VISIT 11/17/2024 1:00 PM CDT Home Care Visit [facility] [address] [place] [phone] Noni Ma RN SN - HOME VISIT 11/17/2024 Home Care Visit [facility] [address] [place] [phone] Magui Isabel, OT OT - DISCIPLINE DISCHARGE 11/17/[address] [address] Robert Akbar MD FYI (Low blood pressure levels) 11/16/2024 11:20 AM CDT Procedure Only [facility] [address] [place] [address] Mercy Davis PA Suture Removal (26 katelynn on stomach) 11/16/2024 Home Care Visit [facility] [address] [place] [address] Lesly Reina, PT CARE COORDINATION 11/16/2024 Travel 11/14/2024 Home Care Visit [facility] [address] [place] [phone] Tayo Abbott, PT CARE COORDINATION 11/10/2024 Telephone [facility] [address] [place] [phone] Noni Ma RN Home Care (Medication clarification) 11/09/2024 10:30 AM CDT Home Care Visit [facility] [address] [place] [phone] Noni Ma RN SN - HOME VISIT 11/09/2024 Telephone [facility] [address] [place] [address] Robert Akbar MD Provider Call (Care Coordination ) 11/08/2024 Home Care Visit [facility] [address] [place] [phone] Noni Ma RN CARE COORDINATION 11/08/2024 Telephone [facility] [address] [place] [address] Robert Akbar MD Follow Up 11/04/2024 4:15 PM CDT Telemedicine [address] [address] Robert Akbar MD Telehealth (No vitals); Hospital F/U ([facility]) 11/04/2024 1:30 PM CDT Home Care Visit [facility] [address] [place] [phone] Noni Ma RN SN - LONG VISIT (>90 MINUTES) 11/04/2024 10:00 AM CDT Home Care Visit [facility] [address] [place] [phone] Alexandra Barnett GEAR CODING MACHINE OPERATOR - HOME VISIT 11/04/2024 Orders Only [facility] [address] [place] [phone] Conrado Evans MD Lab 11/04/2024 Telephone [facility] [address] [place] [address] Robert Akbar MD Form (LAB CHANGES) 11/03/2024 10:00 AM CDT Home Care Visit [facility] [address] [place] [phone] Magui Isabel, ANAHY OT - INITIAL ASSESSMENT 11/03/2024 8:45 AM CDT Home Care Visit [facility] [address] [place] [phone] Missy Upton RN SN - LONG VISIT (>90 MINUTES) 11/03/[address] [phone] Missy Upton continuing education director (HOME CARE ORDERS) 11/03/2024 Home Care Visit [facility] [address] [place] [phone] Missy Upton, SONIA CARE COORDINATION 11/03/2024 Home Care Visit [facility] [address] [place] [phone] Missy Upton, RN CARE COORDINATION 11/03/2024 Orders Only [facility] [address] [place] [address] [place] [phone] Robert Akbar MD Lab 11/03/[address] [facility] [address] [place] [address] Conrado Evans MD Lab (HOME HEALTH) 11/03/2024 Orders Only [facility] [address] [place] [address] Conrado Evans MD Lab (HOME HEALTH) 11/01/2024 12:45 PM CDT Home Care Visit [facility] [address] [place] [phone] Alexandra Barnett GEAR CODING MACHINE OPERATOR - HOME VISIT 11/01/2024 Home Care Visit [facility] [address] [place] [phone] Angela Goncalves, SONIA CARE COORDINATION 10/29/2024 9:45 AM CDT Home Care Visit [facility] [address] [place] [phone] Apple Cantu, RN SN - OASIS START OF CARE 10/29/2024 Telephone [facility] [address] [place] [phone] Apple Cantu, continuing education director (Start of care for Home Health) 10/29/2024 Orders Only [facility] [address] [place] [address] Rboert Akbar MD <No scans attached> 10/29/2024 Orders Only [facility] [address] [place] [address] Robert Akbar MD <No scans attached> 10/29/2024 Plan of Care Documentation [facility] [address] [place] [phone] 10/26/2024 Transcribe Orders [facility] [address] [place] [address] Rey Merlos MD 10/13/2024 Orders Only [facility] Scanner 1 scan: (1-Ord) [facility], ABDOMEN PELVIS W CON, 10/13/2024 10/13/2024 Telephone [facility] [address] [place] [address] Robert Akbar MD Form 09/23/2024 Refill [facility] [address] [place] [address] Robert Akbar MD Refill Request (Eliquis) from Last 3 Months Immunizations Immunization Administration Dates Next Due COVID-19 vaccine ([employer]an[employer] 30mcg/0.3mL) PFNA 02/12/2021,06/09/2020,05/19/2020 HIB PRP-T (ActHIB,Hiberix) 10/03/2015 Influenza A (H1N1), Inactiva gerald (Age >=3 Years) 01/11/2009 Influenza RIV4 (Age 18+ Years) PRESERV FREE 01/30 Influenza, IIV3 (Age >=3 years) 04/30/2012,12/02,01/11/1999 Influenza, IIV4 02/13/2023,01/21/2022,03/12/2020 Influenza, IIV4 (=>6mos) MDViviane 12/17/2018 Pneumococcal Poly,23-Valent (Pneumovax) 07/08/19 13,10/02/2011 Pneumococcal conj 13-Valent (Prevnar 13) 016 Pneumococcal conj 7-Valent (Prevnar 7) 5 Td (Age >=7 Years) 09/23/2002 Tdap 04/08/2019,05/22/2014 Tuberculin (PPD) 04/12/2013 Family History Medical History Relation Name Comments Hypertension Father Heart Disease Maternal Grandfather CO Heart Disease Maternal Uncle 1 CO Diabetes Maternal Uncle 2 Cancer-breast Paternal Grandmother [...] isolated from those around you? 0 06/06/2024 Alcohol Use Answer Date Recorded How often do you have a drink containing alcohol ? 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 Not on file Not on file Obstetrics History Last Filed Vital Signs Vital Sign Reading Time Taken Comments Blood Pressure 132/70 11/24/2024 11:14 AM CDT Pulse 78 11/24/2024 11:14 AM CDT Temperature 36.8 C (98.2 F) 11/24/2024 11:14 AM CDT Respiratory Rate 12 11/24/2024 11:14 AM CDT Oxygen Saturation 98% 11/24/2024 11:14 AM CDT Inhaled Oxygen Concentration - - Weight 58.1 kg (128 lb) 11/16/2024 11:21 AM CDT Height 167.6 cm (5' 6) 06/05/2024 5:13 PM CDT Body Mass Index 20.66 06/05/2024 5:13 PM CDT Plan of Treatment Upcoming Encounters Date Type Department Care Team (Late st Contact Info) Description 11/26/2024 7:00 AM CDT Appointment [facility] [address] [place] [phone] Noni Ma, SONIA [address] [place] [address] 11/28/2024 5:00 AM CDT Appointment [facility] [address] [place] [phone] Noni Ma, RN [address] [place] [address] 11/28/2024 9:30 AM CDT Appointment [facility] [address] [place] [phone] Alexandra Barnett 11/30/2024 4:30 AM CDT Appointment [facility] [address] [place] [phone] Magui Isabel, OT [address], [place] [address] 11/30/2024 7:00 AM CDT Appointment [facility] [address] [place] [phone] Noni Ma, RN [address] [place] [address] 12/01/2024 9:45 AM CDT Appointment [facility] [address] [place] [phone] Alexandra Barnett L 12/02/2024 8:45 AM CDT Appointment [facility] [address] [place] [phone] Noni Ma, RN [address] [place] [address] 12/05/2024 4:00 AM CDT Appointment [facility] [address] [place] [phone] Alexandra Barnett L 12/05/2024 5:00 AM CDT Appointment [facility] [address] [place] [phone] Noni Ma, RN [address] [place] [address] 12/07/2024 4:00 AM CDT Appointment [facility] [address] [place] [phone] Noni Ma, RN [address] [place] [address] 12/08/2024 4:00 AM CDT Appointment [facility] [address] [place] [phone] Allan Barnettin L 12/09/2024 4:00 AM CDT Appointment [facility] [address] [place] [phone] Noni Ma, RN [address] [place], [place] [phone] 12/12/2024 4:00 AM CDT Appointment [facility] [address] [place] [address], [place] [phone] Danberry, Krin L 12/15/2024 4:00 AM CDT Appointment [facility] [address] [place] [address], [place] [phone] Danberry, Krin L 12/19/2024 4:00 AM CDT Appointment [facility] [address] [place] [address], [place] [phone] Danberry, Krin L 12/22/2024 4:00 AM CDT Appointment [facility] [address] [place] [phone] Danberry, Krin L 12/26/2024 4:00 AM CDT Appointment [facility] [address] [place] [phone] Danberry, Krin L Health Maintenance Due Date Last Done Comments Zoster (shingles) series for age 50+ (1 of 2) 1984 Hepatitis B series for 19+ ( 1 of 3 - Risk Dialysis 4-dose series) 1985 Pneumococcal series for age 50+ (4 of 4 - PCV20 or PCV21) 10/02/2020 10/03/2015, 07/07/2012, 10/02/2011, Additional history exists COVID-19 vaccine series ( - season) 2024 02/12/2021, 06/09/2020, 05/19/2020 Influenza Vaccine [...] 75 06/10/203306/10, 10/14/2021, 10/14/2021, Additional history exists RSV vaccine for adults or (1 - 1-dose 75+ series) 2040 HIV for age 15-65 Completed 07/12/2023, 09/18/2022 Hepatitis C screening for ag e 18-79 Completed 07/12/2023, 09/18/2022 Medical Devices Implanted Type Area Tariff Expert Device Identifier Shelf Expiration Date Model / Serial / Lot Mesh Ventral [id number] Ventralight St W/Echo2 - [id number] Implanted:Qty: 1 on 01/08/2022 by Trell Serrato MD at [facility] N/A: Abdomen [employer] 09/26/2022 [id number] / / [id number] Procedures Procedure Name Priority Date/Time Associated Diagnosis Comments BASIC METABOLIC PANEL Routine 11/04/2024 2:20 PM CDT Transplant AMYLASE Routine 11/04/2024 2:20 PM CDT Transplant LIPASE Routine 11/04/2024 2:20 PM CDT Transplant PLATELET ESTIMATE Routine 11/03/2024 9:2 5 AM CDT Transplant RED CELL MORPHOLOGY Routine 11/03/2024 9 :25 AM CDT Transplant CBC W PLT NO DIFF Routine 11/03/2024 9:2 5 AM CDT Transplant TACROLIMUS (UMN) TACR Routine 11/03/2024 9:25 AM CDT Transplant SCAN-CT INTERPRETATION 12:00 AM CDT HEMOGLOBIN A1C MONITORING (POCT) Routine 09/07/2024 9:51 AM CDT Type 1 diabetes mellitus with other specified complication (HC) XR MAMMO HALEIGH BILAT SCREEN Routine 08/24/2024 12:39 PM CDT Encounter for screening mammogram for malignant neoplasm of breast LIPID PANEL Routine 03/31/2024 10:27 AM CLIENT SALES AND SERVICE OFFICER Chronic deep vein thrombosis (DVT) of femoral vein of right lower extremity (HC) ANTI HIV 1/2 [place] 07/12/2023 1:48 AM CDT ANTI HCV [place] 07/12/2023 1:48 AM CDT COLONOSCOPY 06/11/2023 2:04 PM CDT from Last 3 Months or Most Recently Relevant to Health Maintenance Results * AMYLASE (11/04/2024 2:20 PM CDT) AMYLASE 46 28 - 100 IU/L 11/04/2024 3:45 PM CDT [facility] Blood BLOOD SPECIMEN / Unknown Non-Lab Butterfly / Unknown 11/04/2024 2:20 PM CDT 11/04/2024 3:25 PM CDT us Conrado Evans MD CHEMISTRY Final Re sult [facility] [address] [place] [address] * LIPASE (11/04/2024 2:20 PM CDT) LIPASE 24.7 13.0 - 60.0 IU/L 11/04/2024 3:45 PM CDT [facility] Blood BLOOD SPECIMEN / Unknown Non-Lab Butterfly / Unknown 11/04/2024 2:20 PM CDT 11/04/2024 3:25 PM CDT us Conrado Evans MD CHEMISTRY Final Re sult [facility] [address] [place] [address] * (ABNORMAL) BASIC METABOLIC PANEL (11/04/2024 2:20 PM CDT) SODIUM 144 136 - 145 mmol/L 11/04/2024 3:45 PM [facility] POTASSIUM 4.0 3.5 - 5.1 mmol/L 11/04/2024 3:45 PM [facility] CHLORIDE 108(H) 98 - 107 mmol/L 11/04/2024 3:45 PM [facility] CO2,TOTAL 25 22 - 29 mmol/L 11/04/2024 3:45 PM [facility] ANION GAP 11 5 - 18 11/04/2024 3:45 PM [facility] GLUCOSE 109(H) 70 - 99 mg/dL 11/04/2024 3:45 PM [facility] CALCIUM 8.6(L) 8.8 - 10.4 mg/dL 11/04/2024 3:45 PM [facility] Comment: Reference ranges for this test were updated on 01/05/2024 to reflect our healthy population more accurately. Reference range changes are not retroactively applied to results, but previous results using the same methodology can be interpreted in the context of the new reference range. BUN 25(H) 6 - 20 mg/dL 11/04/2024 3:45 PM [facility] CREATININE 2.47(H) 0.50 - 0.90 mg/dL 11/04/2024 3:45 PM [facility] BUN/CREAT RATIO 10 10 - 20 3:45 PM [facility] eGFR 22(L) >90 mL/min/1. 73m2 11/04/2024 3:45 PM CDT [facility] Comment:As of 2021, eG FR is calculated by the CKD-EPI creatinine equation without race adjustment. eGFR can be influenced by muscle mass, exercise, and diet. The reported eGFR is an estimation only and is only applicable if the renal function is stable. Blood BLOOD SPECIMEN / Unknown Non-Lab Butterfly / Unknown 11/04/2024 2:20 PM CDT 11/04/2024 3:25 PM CDT Conrado Evans MD CHEMISTRY Final Re sult Performing Organization Address [facility] Co de Phone Number [facility] [address] [place] [address] * (ABNORMAL) RED CELL MORPHOLOGY (11/03/2024 9:25 AM CDT) ELLIPTOCYTES Few 11/03/2024 11:23 AM CDT [facility] POLYCHROMASIA Slight 11/03/2024 11:23 AM CDT [facility] RBC COMMENT Present(A) RBC morphology appears normal, RBC morphology within normal limits for newborns. 11/03/2024 11:23 AM CDT [facility] LARGE PLATELETS Present 11:23 AM CDT [facility] Blood BLOOD SPECIMEN / Unknown Non-Lab Venipuncture / Unknown 11/03/2024 9:25 AM CDT 11/03/2024 10:53 AM CDT Narrative [facility] - 11/03/2024 11:23 AM CDT Please fax results to Dr. Evans [phone] us Conrado Evans MD HEMATOLOGY Final Re sult Performing Organization Address [facility] Co de Phone Number [facility] [address] [place] [address] * (ABNORMAL) PLATELET ESTIMATE (11/03/2024 9:25 AM CDT) PLATELET ESTIMATE Platelets are clumped and appear increased(A) Adequate, No estimate 11/03/2024 11:23 AM [facility] Blood BLOOD SPECIMEN / Unknown Non-Lab Venipuncture / Unknown 11/03/2024 9:25 AM CDT 11/03/2024 10:53 AM T [facility] LAB[facility]ATORY - 11/03/2024 11:23 AM CDT Please fax results to Dr. Evans [phone] us Conrado Evans MD HEMATOLOGY Final Re sult [facility] [address] [place] [address] * (ABNORMAL) CBC W PLT NO DIFF (11/03/2024 9:25 AM CDT) [facility] WHITE BLOOD COUNT 9.5 4.5 - 11.0 thou/cu mm 11/03/2024 11:22 AM [facility] RED BLOOD COUNT 2.54(L) 4.00 - 5.20 mil/cu mm 11/03/2024 11:22 AM [facility] HEMOGLOBIN 7.0(L) 12.0 - 16.0 g/dL 11/03/2024 11:22 AM [facility] HEMATOCRIT 24.0(L) 33.0 - 51.0 % 11/03/2024 11:22 AM [facility] MCV 95 80 - 100 fL 11/03/2024 11:22 AM [facility] MCH 27.6 26.0 - 34.0 pg 11/03/2024 11:22 AM [facility] MCHC 29.2(L) 32.0 - 36.0 g/dL 11/03/2024 11:22 AM [facility] RDW 16.8(H) 11.5 - 15.5 % 11/03/2024 11:22 AM [facility] PLATELET COUNT 649(H) 140 - 440 thou/cu mm 11/03/2024 11:22 AM CDT [facility] MPV 10.7 6.5 - 11.0 fL 11/03/2024 11:22 AM CDT [facility] Blood BLOOD SPECIMEN / Unknown Non-Lab Venipuncture / Unknown 11/03/2024 9:25 AM CDT 11/03/2024 10:53 AM CDT Narrative [facility] - 11/03/2024 11:22 AM CDT Please fax results to Dr. Evans [phone] us Conrado Evans MD HEMATOLOGY Final Re sult [facility] [address] [place] [address] * TACROLIMUS (11/03/2024 9:25 AM CDT) TACROLIMUS 4.0 ng/mL 11/04/2024 11:33 AM CDT [facility] DATE OF LAST DOSE,TACROLIMUS 11/02/2024 11/04/2024 11:33 AM T [facility] TIME OF LAST DOSE,TACROLIMUS 9:00 PM 11/04/2024 11:33 AM CDT [facility] Blood BLOOD SPECIMEN / Unknown Non-Lab Venipuncture / Unknown 11/03/2024 9:25 AM CDT 11/03/2024 10:53 AM CDT [facility] LABORATORY-CEN[facility]AL LABORATORY - 11/04/2024 11:33 AM CDT Target blood levels in Heart Transplant recipient: o 0-3 months post transplant: 12-15 ng/ml o >3-6 months post transplant: 10-15 ng/ml o >6-12 months post transplant: 8-12 ng/ml o >12 months post transplant: 5-10 ng/ml Target blood levels in Kidney Transplant recipient: o 0-3 months post transplant: 10-12 ng/ml o >3-6 months post transplant: 8-10 ng/ml o >6-12 months post transplant: 5-8 ng/ml o >12 months post transplant: 4-6 ng/ml Patients may have an individual goal range due to risk of rejection or adverse effects of tacrolimus. Biotin supplements may cause clinically significant interference for this test assay. If interference is suspected, it is strongly recommended that biotin is discontinued for at least one week prior to retesting Analytical method is electrochemiluminescence immunoassay (ECLIA) and the method platform is the Saritha Immunoassay analyzer. Conrado Evans MD SEND OUTS Final Re sult Performing Organization Address City/[facility]/ZIP Co de Phone Number [facility] LAB[facility]ATORY [address] [place] [address], [facility] [address] [place] [address] * SCAN-CT INTERPRETATION (10/13/2024 12:00 AM CDT) Anatomical Region Laterality Modality Other us Scanner OTHER Final Result * (ABNORMAL) HEMOGLOBIN A1C MONITORING (POCT) (09/07/2024 9:51 AM CDT) HEMOGLOBIN A1C MONITORING (POCT) 5.3(PRISON OFFICER AL) <=6.4 % [facility] Blood BLOOD SPECIMEN / Unknown 09/07/2024 9:51 AM CDT Narrative [facility] - 09/07/2024 10:21 AM CDT Notice: This testing was ordered by an outside provider and performed by [facility] @ [address] [place] [id number]. The original result report can be found in the patient record as a CareEverywhere A1C result from 09/07/24. us Robert Akbar MD CHEMISTRY Final Result Performing Organization Address [facility] Co de Phone Number [address] [address] * XR MAMMO HALEIGH BILAT SCREEN (08/24/2024 [...] For Patients: As a result of the Century Cures Act, medical imaging exams and procedure reports are released immediately into your electronic medical record. You may view this report before your referring provider. If you have questions, please contact your health care provider. XR MAMMO HALE[place] BILAT SCREEN [[id number]] CLINICAL HISTORY: This is an asymptomatic 58 [...] Result * LIPID PANEL (03/31/2024 10:27 AM [facility]) CHOLESTEROL,TOTAL 155 100 - 199 mg/dL 03/31/2024 11:10 AM [facility] Comment: Cholesterol, Total Reference Ranges Desirable <200 mg/dL Borderline 200-239 mg/dL High >=240 mg/dL TRIGLYCERIDES 135 <150 mg/dL 03/31/2024 11:10 AM [facility]ORY HDL CHOLESTEROL 58 >40 mg/dL 11:10 AM [facility] TR[facility] LABORATORY NON-HDL CHOLESTEROL 97 <145 mg/dl 03/31/2024 11:10 AM [facility] [employer] LABORATORY-[facility] TRAL LABORATORY CHOL/HDL RATIO 2.67 <4.50 03/31/2024 11:10 AM [facility] [employer]-[facility] LABORATORY LDL CHOLESTEROL 70 <=130 mg/dL 03/31/2024 11:10 AM [facility] LAB[facility]ATORY VLDL CHOLESTEROL 27 <=30 mg/dL 03/31/2024 11:10 AM [facility] [employer] LABORATORY-[facility] TRAL LABORATORY PROVIDER ORDERED STATUS RANDOM 03/31/2024 11:10 AM CLIENT SALES AND SERVICE OFFICER [facility] LABORATORY Blood BLOOD SPECIMEN / Unknown Venipuncture / Unknown 03/31/2024 10:27 AM CLIENT SALES AND SERVICE OFFICER 03/31/2024 10:35 AM CLIENT SALES AND SERVICE OFFICER Joselito Dunaway MD CHEMISTRY Final Result Performing Organization Address [facility] Co de Phone Number [facility] [address] [place] [address], [place] * ANTI HCV (07/12/2023 1:48 AM CDT) HEPATITIS C ANTIBODY Non-Reacti ve Non-React whit 07/13/2023 12:16 AM CDT [facility] Comment:Please note, per www .CDC.gov: If [...] OUTS Final Resul t Performing Organization Address [facility] Co de Phone Number [facility] [address] [place] [address], [place] * ANTI HIV 1/2 (07/12/2023 1:48 AM CDT) HIV-1/HIV-2 SCREEN Non-Reacti ve Non-Reacti ve 07/13/2023 12:16 AM CDT [facility] TRAL LABORATORY Comment:HIV-1 p24 and HIV-1/ HIV-2 Ab Not Detected. Blood BLOOD SPECIMEN / Unknown Butterfly / Unknown 07/12/2023 1:48 AM CDT 07/12/2023 1:54 AM CDT us Olimpia Stark MD SEND OUTS Final Resul t [facility]-C[facility]AL LABORATORY [address] [place] [address], [place] * COLONOSCOPY (06/11/2023 2:04 PM CDT) 06/11/2023 2:04 PM CDT Narrative Transcriptions Ivonne Aleman MD - 06/11/2023 5:30 PM CDT Endoscopy Patient Name: Roxanna Monzon Procedure Date: 06/11/2023 Gender: Female Date [...] adequate candidate for conscious sedation. The endoscope [id number] was passed through the anus andadvanced to the terminal ileum, with identification of the appendiceal orifice and IC valve. The colonoscopy was performed without difficulty. The patient tolerated the procedure well. The quality of the bowel preparation was evaluated using the BBPS ([place] Bowel Preparation Scale) with scores of: Right [...] Time 0 hours 9 minutes 8 seconds us Ivonne Aleman MD PROCEDURE ORD Final Result from Last 3 Months or Most Recently Relevant to Health Maintenance Additional Health Concerns Infection Onset Date Last Indicated MDRO Clearance Comment:VRE Outside location 12/26/19 02/10/2023 02/10/2023 C diff History 04/16/2023 04/16/2023 Insurance MEDICARE PART B HB ONLY MEDICARE PB ONLY MEDICARE PART A HB ONLY [place] [employer] [place] [employer] MEDICARE PPS MEDICARE PB ONLY Advance Directives * DNR [...] Code Status Discussion: Reviewed Preferences Care Teams Reversal Print Inspector Relationship Specialty [place] [address] [place] [address] PCP - General 05/22/09 [facility] [address] [place] [address] 11/15/24
--- OUTSIDE RECORDS SUMMARY | 2024-11-25 12:35 | XMS_ITS | Patient Health Record ---
Author Organization [facility] Address [address] [place] [address] [place] [address] Care Team Providers Care Rip Tailer Name Role Phone Robert Marley Primary Care Provider Unavail able ARIANA SHAJI Unavailable [phone] Reason For Referral No Information Medications Medication SIG (Take, Route, Frequency, Duration) Notes Start Date End Date Status dexAMETHasone 1 MG Tablet TABLET 1 BY MO UT EVERY DAY WITH BREAKFAST. Oral; Duration: 90 [...] Problem Status W/U Status Risk Notes Problem Swelling of head ([id number]) Cheek swelling (R22.0) Active confirmed Plan Of Treatment No Information Insurance Providers Payer Name Payer Address Payer Phone Subscriber Number Group Number Insured Name Patient Relationship to Insured Coverage Start Date Coverage End Date MEDICARE [address] [place] [address] [id number] Roxanna Monzon Self - patient is the insured [facility] MEDICARE [address] [place], [place] [id number] Roxanna Monzon Self - patient is the insured Medical (General) History Medical History History ICD Code Diabetes Autoimmune disorders Kidney and Pancreas transplant Surgical History Surgery Date(Month/Year) Kidney and pancreas transplant 2013 Ankle surgery Jaw surgery
--- OUTSIDE RECORDS SUMMARY | 2024-11-25 12:36 | XMS_ITS | Encounter Summary ---
Author Organization [facility] Address [address] [place] [address] Care Team Providers Care Advertiser Name Role Phone Elsewhere, Pcp Primary Care Provider Unavailabl e Encounter Details Date Type Department Care Team (Late st Contact Info) Description 11/17/2024 Documentation Division of Nephrology and Hypertension, [facility] in [place], [place] [address] [place] [phone] Tuan Cisse, DESHAUN, C.N.P., M.S.N. 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 - 11/17/2024 1:23 PM CDT Mrs. Roxanna Monzon is a 58-year-old female with end-stage renal disease due to diabetic nephrosclerosiswho is status post a recent very stormy course, where she was hospitalized from the 13 of October through the 21 of October, and then subsequently readmitted from the through the resulting from complications from a transplant biopsy. She suffered acute tubular necrosis following the complications of the perinephric hematoma requiring embolization and has been dialyzing at the [facility] dialysis unit. Mrs. Roxanna Monzon's creatinine was 1.94 mg/dL and potassium at 4.5 mmol/L as well as 1500 cc of urine over 24 hours on 11/14/2024. Her clearance was 19 cc/min. Dr. Giorgi Phillips her Nephrology strategic solutions consultant at [facility] in [facility] has recommended that she can be hemodialysis independent. She will need local follow up with weekly labs (renal function panel and CBC) with her primary DR Summers and close followup with hemoglobin in the background of her autoimmune induced hemolytic anemia. She will need to have her IJ tunneled hemodialysis catheter removed. Nevertheless, her preference is to have the procedure [facility] at [facility]. documented in this encounter Plan of Treatment Not on file documented as of this encounter Visit Diagnoses Not on filedocumented in this encounter Care Teams Advertiser Relationship Specialty Start Date End Date Elsewhere, Pcp PCP - General 05/04/20 documented as of this encounter
--- OUTSIDE RECORDS SUMMARY | 2024-11-25 12:36 | XMS_ITS | Clinical Summary ---
Author Organization [facility] Address [address] [address] Care Team Providers Care Iron Miner Blasting Name Role Phone Robert Marley MD Primary Care Provider [phone] Source Comments You are receiving this document as you are listed as the primary care provider,follow-up provider, or the patient has been referred to you for consultation.This is in compliance with the Medicare and[facility] EHR Incentive Program,which states Providers who transition their patient to another setting of careor provider of care or refers their patient to another provider of care shouldprovide summary care record for each transition of care or referral. [email or web address] Allergies Active Allergy Reactions Criticality Noted Date Comments Blood-Group Specific Substance Other, see comments 07/12/2023 Patient has anti-N and a warm autoantibody. Blood products may be delayed. Draw patient 24 hours prior to transfusion. For [employer] testing, draw one red top and two purple top tubes for all Type and Screen orders. Hydromorphone Other, see comments High 12/10/2015 Unresponsiveness, likely from too high of dose. 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 Finding compatible RBCs may take up to 24 hours or more. Consult with the Blood Bank MD for transfusion guidance. Medications gabapentin (NEURONTIN) 300 MG capsule Take 2 Capsules (600 mg) by mouth daily at bedtime. 5 Active pantoprazole (AKA PROTONIX) 40 MG tablet Take 1 Tablet (40 mg) by mouth two times a day. 5 Active tacrolimus (AKA PROGRAF) 1 MG capsule Take 2 Capsules (2 mg) by mouth two times a day. 5 Active acetaminophen 500 MG tablet Take 2 Tablets (1,000 mg) by mouth every 6 hours as needed for Pain or Fever. Active apixaban (ELIQUIS) 5 MG tablet Take 1 Tablet (5 mg) by mouth two times a day. 5 Active aspirin 81 MG chewable tablet Chew and swallow 1 Tablet (81 mg) by mouth daily. Active colesevelam (WELCHOL) 625 MG tablet Take 1 Tablet (625 mg) by mouth two times a day with meals. Active diphenoxylate-at ropine (LOMOTIL) 2.5-0.025 MG tablet Take 2 Tablets by mouth three times a day as needed for Diarrhea. Active ferrous gluconate (FERGON) 324 (37.5 Fe) MG tablet Take 1 Tablet (324 mg) by mouth daily with meal. Active mycophenolate (MYFORTIC) 360 MG Take 1 Tablet (360 mg) by mouth two times a day. 5 Active rosuvastatin (CRESTOR) 10 MG tablet Take 1 Tablet (10 mg) by mouth daily at bedtime. 5 Active lipase-protease- amylase (JEGFR31624) 96830-19392 units per capsule-delayed release particles Take 1 Capsule by mouth two times a day. Active topiramate (TOPAMAX) 50 MG tablet Take 1 Tablet (50 mg) by mouth two times a day. Active sodium bicarbonate 650 MG tablet Take 1 Tablet (650 mg) by mouth two times a day. Active sodium chloride (OCEAN) 0.65 % nasal solution Place 1 [place] into both nostrils every 1 hour as needed for Congestion. Active buPROPion (WELLBUTRIN SR) 100 MG 12 hour release tablet Take 1 Tablet (100 mg) by mouth every other day. Active Active Problems Problem Noted Date Diagnosed Date Acute renal failure superimp osed on chronic kidney disease, on chronic dialysis 10/22/2024 Orthostatic hypotension 09/05/2014 Pancreas transplanted 03/09/2014 Kidney transplanted 03/09/2014 Insomnia 03/09/2014 HTN (hypertension) 03/09/2014 CAD (coronary artery disease) 03/09/2014 Neuropathy 03/09/2014 Type 1 diabetes mellitus 03/09/2014 Encounters Date Type Department Care Team Description 10/22/2024 8:19 PM CDT - 10/23/2024 1:52 AM CDT Emergency [facility] [address] [place] [address] Socrates Ly MD Hypertension, unspecified type (HRC); End stage renal disease (HRC); Post-operative pain Discharge Disposition: [facility] 10/22/2024 Lab Requisition [facility] [address] [place] [address] Bisi Mejia MBBS Kidney transplant status (HRC) from Last 3 Months Social History Tobacco Use Types Packs/Day Years [...] Colon Cancer Screening Plan Due 1965 Diabetes: Foot Exam 1965 Diabetes: Lipid Panel 1965 Hep C Screening (Preventive Services) 1965 Medicare Annual Wellness Visit 1965 Zoster/Shingles Vaccine (1 of 2) 1984 HepB Vaccine (1) 1985 Pneumococcal Vaccine 50+ Yrs (3 of 3 - PCV20 or PCV21) 10/02/2020 10/03/2015, 07/07/2012, 10/02/2011 COVID-19 Vaccine (4 - season) 2024 02/12/2021, 06/09/2020, 05/19/2020 Influenza Vaccine (#1) 2024 , 01/21/2022, 02/12/2021, Additional history exists Diabetes: HGBA1C 03/10/2025 09/07/2024, 10/2024, 09/07/2024, Additional history exists Diabetes: Eye Exam 04/29/2025 04/29/2024, 0 03/31/2024, 10/30/2023, Additional history exists Mammogram 08/24/2025 08/24/2024 DTaP/Tdap/Td Vaccine (3 - Tdap) 04/08/2029 04/08/2019, 05/22/2014, 09/23/2002 Hib Vaccine Aged Out 10/03/2015 No longer eligi ble based on patient's age to complete this topic HIV Screening (Preventive Services) Completed 07/12/2023, 01/08/2016 HepA Vaccine Aged Out No longer eligi [...] on patient's age to complete this topic Procedures Procedure Name Priority Date/Time Associated Diagnosis Comments DIFFERENTIAL STAT 10/22/2024 9:21 PM CDT ALBUMIN Add-On 10/22/2024 9:21 PM CDT COMPLETE BLOOD COUNT-W/DIFF STAT Add-On 10/22/2024 9:21 PM CDT BASIC METABOLIC PANEL STAT Add-On 10/22/2024 9:21 PM CDT CBC AND DIFFERENTIAL PANEL STAT Add-On 10/22/2024 9:21 PM CDT EXTRA LIGHT GREEN TOP ON ICE TUBE Routine 10/22/2024 9:21 PM CDT INR/PROTIME STAT 10/22/2024 9:21 PM CDT EXTRA BLUE TOP TUBE STAT 10/22/2024 9 :21 PM CDT EXTRA LIGHT GREEN TUBE STAT 10/22/2024 9:21 PM CDT EXTRA LAVENDER TOP TUBE STAT 10/22/2024 9:21 PM CDT RAINBOW DRAW AND HOLD STAT 10/22/2024 9:21 PM CDT from Last 3 Months Results * Extra Lavender top tube (10/22/2024 9:21 PM CDT) Extra Lavender Top Drawn Specimen will be held for 3 days 10/22/2024 11:00 PM CDT [facility] Blood Venipuncture / Unknown 10/22/2024 9:21 PM CDT 10/22/2024 9:25 PM CDT us Basil Flynn MD LAB_1 Final Result [facility] CLIA: [id number] [address] [place] [address], [facility] * Extra Blue top tube (10/22/2024 9:21 PM CDT) Extra Blue Top Drawn Specimen will be held for 24 hours 10/22/2024 11:00 PM CDT [facility] Blood Venipuncture / Unknown 10/22/2024 9:21 PM CDT 10/22/2024 9:25 PM CDT Basil Flynn MD LAB_1 Final Result Performing Organization Address [facility] Phone Number [facility] CLIA: [id number] [address] * Extra Light Green Tube (10/22/2024 9:21 PM CDT) Extra Light Green Tube Drawn Specimen will be held for 5 days 10/22/2024 11:00 PM CDT [facility] Blood Venipuncture / Unknown 10/22/2024 9:21 PM CDT 10/22/2024 9:25 PM CDT Basil Flynn MD LAB_1 Final Result Performing Organization Address [facility] CLIA: [id number] [address] * Extra Light Green On Ice Tube (10/22/2024 9:21 PM CDT) Extra Light Green On Ice Tube Drawn Specimen will be held for 5 days 10/22/2024 11:00 PM CDT [facility] Blood Venipuncture / Unknown 10/22/2024 9:21 PM CDT 10/22/2024 9:25 PM CDT Basil Flynn MD LAB_1 Final Result Performing Organization Address [facility] Phone Number [facility] CLIA: [id number] [address] * (ABNORMAL) Complete Blood Count-W/Diff (10/22/2024 9:21 PM CDT) WBC 14.4(H) 3.5 - 10.5 x10(9)/L 10/22/2024 10:27 PM CDT [facility] RBC 2.86(L) 3.90 - 5.03 x10(12)/L 10/22/2024 10:27 PM [facility] Hemoglobin 7.8(L) 12.0 - 15.5 g/dL 10/22/2024 10:27 PM [facility] HCT 23.8(L) 34.9 - 44.5 % 10/22/2024 10:27 PM [facility] MCV 83.2 80.0 - 100.0 fL 10/22/2024 10:27 PM [facility] MCH 27.3(L) 27.6 - 33.3 pg 10/22/2024 10:27 PM [facility] MCHC 32.8 31.5 - 35.2 g/dL 10/22/2024 10:27 PM [facility] RDW 17.5(H) 11.9 - 15.5 % 10/22/2024 10:27 PM [facility] Platelets 157 150 - 450 x10(9)/L 10/22/2024 10:27 PM [facility] Automated NRBC 0 <=0 /100 WBC 10/22/2024 10:27 PM [facility] Blood Venipuncture / Unknown 10/22/2024 9:21 PM CDT 10/22/2024 9:25 PM CDT us Socrates Ly MD LAB_1 Final Resul t [facility] CLIA: [id number] [address] * (ABNORMAL) Basic Metabolic Panel (10/22/2024 9:21 PM CDT) Sodium 136 136 - 145 mmol/L 10/22/2024 9:55 PM [facility] Potassium 3.6 3.5 - 5.1 mmol/L 10/22/2024 9:55 PM [facility] Chloride 97(L) 98 - 109 mmol/L 10/22/2024 9:55 PM [facility] CO2 27 20 - 29 mmol/L 10/22/2024 9:55 PM [facility] Anion Gap 12 6 - 16 mmol/L 10/22/2024 9:55 PM [facility] Calcium 7.8(L) 8.4 - 10.4 mg/dL 10/22/2024 9:55 PM [facility] BUN 26 7 - 26 mg/dL 10/22/2024 9:55 PM [facility] Creatinine 2.53(H) 0.55 - 1.02 mg/dL 10/22/2024 9:55 PM [facility] Glucose 94 70 - 100 mg/dL 10/22/2024 9:55 PM [facility] Comment:The given reference range is for the fasting state. Non-fasting reference range for glucose is 70 - 180 mg/dL. GFR, Estimated 21(L) >60 mL/min/1.7 3m2 10/22/2024 9:55 PM [facility] Blood Venipuncture / Unknown 10/22/2024 9:21 PM CDT 10/22/2024 9:25 PM CDT us Socrates Ly MD LAB_1 Final Resul t [facility] CLIA: [id number] [address] * (ABNORMAL) Differential (10/22/2024 9:21 PM CDT) RBC Morphology Reviewed 10/22/2024 10:27 PM [facility] Platelet Estimate Adequate Adequate 10/22/2024 10:27 PM [facility] Neutrophil Absolute 12.8(H) 1.7 - 7.0 10(9)/L 10/22/2024 10:27 PM [facility] Lymphocyte Absolute 0.4(L) 1.0 - 4.8 10(9)/L 10/22/2024 10:27 PM [facility] Monocyte Absolute 1.1(H) 0.2 - 0.9 10(9)/L 10/22/2024 10:27 PM [facility] Eosinophil Absolute 0.1 0.0 - 0.5 10(9)/L 10/22/2024 10:27 PM CDT [facility] Basophil Absolute 0.0 0.0 - 0.3 10(9)/L 10/22/2024 10:27 PM CDT [facility] Blood Venipuncture / Unknown 10/22/2024 9:21 PM CDT 10/22/2024 9:25 PM CDT us Socrates Ly MD LAB_1 Final Resul t Performing Organization Address City/[facility]/ZIP Co de Phone Number [facility] CLIA: [id number] [address] * (ABNORMAL) Albumin Only (Serum) (10/22/2024 9:21 PM CDT) Albumin 2.0(L) 3.5 - 5.0 g/dL 10/22/2024 10:38 PM CDT [facility] Blood Venipuncture / Unknown 10/22/2024 9:21 PM CDT 10/22/2024 9:25 PM CDT us Memo Porter MD LAB_1 Final Resu lt Performing Organization Address [facility] Co de Phone Number [facility] CLIA: [id number] [address] * (ABNORMAL) INR/Protime (10/22/2024 9:21 PM CDT) Protime 24.4(H) 11.8 - 14.6 Seconds 10/22/2024 9:39 PM CDT [facility] INR 2.3(H) 0.9 - 1.1 10/22/2024 9:39 PM CDT [facility] Blood Venipuncture / Unknown 10/22/2024 9:21 PM CDT 10/22/2024 9:25 PM CDT Narrative [facility] - 10/22/2024 9:39 PM CDT If you take an anticoagulant medicine called warfarin, your doctor or clinician may establish a normal range for you that is different from the baseline range shown. Basil Flynn MD LAB_1 Final Result [facility] CLIA: [id number] [address] [place] [address], [facility] from Last 3 Months Insurance [facility] MEDICARE MEDICARE [facility] MEDICARE Care Teams [employer] Relationship Specialty [place] [address] [place] [address] PCP - General Family Practice 10/22/24
--- OUTSIDE RECORDS SUMMARY | 2024-11-25 12:36 | XMS_ITS | Encounter Summary ---
Author Organization [facility] Address [address] [place] [address] Care Team Providers Care Circuits Engineer Name Role Phone Elsewhere, Pcp Primary Care Provider Unavailabl e Encounter Details Date Type Department Care Team (Late st Contact Info) Description 12/15/2011 Historical Ophthalmology [facility] Marietta Hernandez M.D. 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 Sees Dr. Lizama at [place] [facility] IMPRESSION / REPORT / PLAN Consult requested by: Jonelle Nair [id number] #1 Proliferative diabetic retinopathy both eyes, s/p [...] left eye. CDM Reports - EYEGEN Id: [id number] Status: Fnl documented in this encounter Plan of Treatment Not on file documented as of this encounter Visit Diagnoses Not on filedocumented in this encounter Care Teams Circuits Engineer Relationship Specialty Start Date End Date Elsewhere, Pcp PCP - General 05/04/20 documented as of this encounter
--- NOTE | 2024-11-25 13:22 | ED.GENADULT ---
HPI - General Adult General Date Seen: 11/25/24 Chief complaint: Unspecified Complaint, Adult Stated complaint: Sent by uncologist for blood transfusion Time Seen by Provider: 11/25/24 12:39 History of Present Illness HPI narrative: Patient is a 58-year-old with complex past medical history including chronic kidney disease stage 4, type 1 diabetes with diabetic ulcers and toe amputation. Status post pancreas transplant, history of DVT, PE,, history of hemolytic anemia, diastolic CHF, coronary disease, hyperlipidemia, restless legs, hypothyroidism, GERD, depression/anxiety. She has a history of hysterectomy, left toe amputation. Kidney and pancreas transplant at [facility], 2013. She was seen here mid September with a perinephric hematoma, her anticoagulation was reversed at that time and she was transferred to the [facility]. 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 She does have chronic anemia, she says they are not sure what is causing the blood loss at this point but she has needed transfusions every couple of weeks. She was last transfused last week but she is not sure what her hemoglobin was at the time. She says her reticulocyte count has been low. She was at her oncologist today in [place] and they noted hemoglobin of 6.8, so they sent her here for transfusion. She denies any acute blood loss that she is aware of such as black or bloody stools, vomiting blood or injuries. Related Data Home Medications ?Medication ?Instructions ?Recorded ?Confirmed bupropion HCl 150 mg 24 hr tablet, 150 mg PO DAILY 07/14/22 11/25/24 extended release (Wellbutrin XL) cholecalciferol (vitamin D3) 25 25 mcg PO DAILY 07/14/22 11/25/24 mcg (1,000 unit) capsule cholestyramine (with sugar) 4 gram ea PO 07/14/22 oral powder (Questran) citalopram 20 mg tablet (Celexa) 20 mg PO DAILY 07/14/22 11/25/24 cyanocobalamin (vitamin B-12) 1,000 mcg PO DAILY 07/14/22 11/25/24 1,000 mcg capsule gabapentin 300 mg capsule 600 mg PO BID 07/14/22 11/25/24 rlabzz-xojdwqvc-wtmiegr 2 cap PO Q8H 07/14/22 11/25/24 12,000-38,000-60,000 unit capsule,delayed rel (Creon) ondansetron 4 mg disintegrating 4 mg PO Q8H PRN 07/14/22 11/25/24 tablet pantoprazole 40 mg tablet,delayed 40 mg PO DAILY 07/14/22 11/25/24 release rosuvastatin 40 mg tablet 40 mg PO DAILY 07/14/22 10/13/24 sirolimus 1 mg tablet 3 mg PO DAILY 07/14/22 11/25/24 tacrolimus 1 mg capsule, 4 mg PO Q12H 07/14/22 11/25/24 immediate-release (Prograf) topiramate 50 mg tablet (Topamax) 50 mg PO BID 07/14/22 11/25/24 apixaban 5 mg tablet (Eliquis) 5 mg PO BID 08/25/23 11/25/24 bupropion HCl 100 mg tablet,12 hr mg PO 11/25/24 sustained-release colesevelam 625 mg tablet PO 11/25/24 Allergies Allergy/AdvReac Type Severity Reaction Status Date / Time hydromorphone (From Dilaudid) Allergy Mild Unknown Verified 11/25/24 13:00 Review of Systems Status of ROS: Reports: 6 or more systems reviewed and unremarkable except as noted in History and below [facility] Medical History Chronic kidney disease, stage 4 (severe) ?N18.4 - Chronic kidney disease, stage 4 (severe) (ICD-10) Diabetic ulcer of left heel associated with type 2 diabetes mellitus, with fat layer exposed ?E11.621 - Type 2 diabetes mellitus with foot ulcer (ICD-10) ?L97.422 - Non-pressure chronic ulcer of left heel and midfoot with fat layer exposed (ICD-10) Other autoimmune hemolytic anemia ?D59.19 - Other autoimmune hemolytic anemia (ICD-10) Adrenal insufficiency ?E27.40 - Unspecified adrenocortical insufficiency (ICD-10) Neurogenic orthostatic hypotension ?G90.3 - Multi-system degeneration of the autonomic nervous system (ICD-10) Acute respiratory failure with hypoxia ?J96.01 - Acute respiratory failure with hypoxia (ICD-10) Anticoagulation monitoring, INR range 2-3 ?Z79.01 - terminologist (current) use of anticoagulants (ICD-10) DVT of deep femoral vein ?I82.419 - Acute embolism and thrombosis of unspecified femoral vein (ICD-10) Hemolytic anemia ?D58.9 - Hereditary hemolytic anemia, unspecified (ICD-10) Acute on chronic diastolic (congestive) heart failure ?I50.33 - Acute on chronic diastolic (congestive) heart failure (ICD-10) CAD (coronary artery disease) ?I25.10 - Atherosclerotic heart disease of [place] coronary artery without angina pectoris (ICD-10) Insomnia, unspecified ?G47.00 - Insomnia, unspecified (ICD-10) Mixed hyperlipidemia ?E78.2 - Mixed hyperlipidemia (ICD-10) Restless leg syndrome ?G25.81 - Restless legs syndrome (ICD-10) Vitamin D deficiency ?E55.9 - Vitamin D deficiency, unspecified (ICD-10) Hypothyroidism ?E03.9 - Hypothyroidism, unspecified (ICD-10) Depression with anxiety ?F41.8 - Other specified anxiety disorders (ICD-10) GERD (gastroesophageal reflux disease) ?K21.9 - Gastro-esophageal reflux disease without esophagitis (ICD-10) Surgical History Hx of vitrectomy ?Z98.890 - Other specified postprocedural states (ICD-10) Hx of cardiac catheterization ?Z98.890 - Other specified postprocedural states (ICD-10) Hx of hysterectomy ?Z90.710 - Acquired absence of both cervix and uterus (ICD-10) Hx of carpal tunnel repair ?Z98.890 - Other specified postprocedural states (ICD-10) History of incisional hernia repair ?Z98.890 - Other specified postprocedural states (ICD-10) ?Z87.19 - Personal history of other diseases of the digestive system (ICD-10) History of amputation of lesser toe of left foot ?Z89.422 - Acquired absence of other left toe(s) (ICD-10) Status post simultaneous kidney and pancreas transplant ?Z94.0 - Kidney transplant status (ICD-10) ?Z94.83 - Pancreas transplant status (ICD-10) Social History Smoking Status: Former smoker What tobacco products do you use: cigarettes Smoking quit date/years: >15 years ago Do you use any of these nicotine containing products: None Second hand tobacco smoke exposure: No How often do you have a drink containing alcohol: never How often do you have six or more drinks on one occasion: Never AUDIT-C Alcohol total score: 0 Non-prescribed substance use: denies use Caffeine: Yes Are you using contraception or practicing any form of control: No Exam Narrative: Exam Narrative: Vital signs reviewed In general, alert, nontoxic, chronically ill-appearing woman. Head: Normocephalic, atraumatic. Eyes: Sclera clear. Pupils equal and reactive. ENT: Mucous membranes moist. Neck: Supple without adenopathy. Heart: Regular rate and rhythm without murmur. Lungs: Clear. No increased work of breathing, crackles or wheezes. Abdomen: Soft, wound VAC in place. Extremities: Well perfused, pulses intact. No significant edema. Neurologic: Alert, conversant. Speech fluent, face symmetric. Moves all extremities equally. Skin: Warm, dry well perfused. Affect: Normal. Const: Vital Signs, click to edit/add: Vital Signs - 24 hr 11/25/24 12:54 11/25/24 14:49 11/25/24 15:01 Temperature 98.6 F 98.3 F Pulse Rate 84 81 Pulse Rate [Left P ulse Oximeter] 81 Respiratory Rate 16 16 Blood Pressure 166/85 H Blood Pressure [Ri ght Upper Arm] 101/55 L Pulse Oximetry 97 96 98 Oxygen Delivery Me od Room Air Room Air 11/25/24 15:06 11/25/24 15:08 11/25/24 15:08 Temperature 97.6 F Pulse Rate 82 80 Pulse Rate [Left P ulse Oximeter] Respiratory Rate 16 Blood Pressure 163/82 H 163/82 H Blood Pressure [Ri ght Upper Arm] Pulse Oximetry 98 97 [facility] 11/25/24 15:15 11/25/24 15:30 11/25/24 15:32 Temperature Pulse Rate 84 83 82 Pulse Rate [Left P ulse Oximeter] Respiratory Rate Blood Pressure 169/90 H Blood Pressure [Ri ght Upper Arm] Pulse Oximetry 97 97 97 Oxygen Delivery Me thod 11/25/24 15:38 11/25/24 15:45 11/25/24 16:00 Temperature 96.4 F L Pulse Rate 80 81 83 Pulse Rate [Left P ulse Oximeter] Respiratory Rate 16 Blood Pressure 169/90 H Blood Pressure [Ri ght Upper Arm] Pulse Oximetry 97 98 99 Oxygen Delivery Me thod Room Air 11/25/24 16:01 11/25/24 16:08 11/25/24 16:15 Temperature 97.6 F Pulse Rate 83 83 85 Pulse Rate [Left P ulse Oximeter] Respiratory Rate 16 Blood Pressure 175/96 H 175/87 H Blood Pressure [Ri ght Upper Arm] Pulse Oximetry 98 97 98 Oxygen Delivery Me thod Room Air 11/25/24 16:30 11/25/24 16:32 11/25/24 16:38 Temperature 97.9 F Pulse Rate 83 82 79 Pulse Rate [Left P ulse Oximeter] Respiratory Rate 16 Blood Pressure 175/87 H 175/87 H Blood Pressure [Ri ght Upper Arm] Pulse Oximetry 97 97 98 Oxygen Delivery Me thod Room Air 11/25/24 16:45 11/25/24 17:00 11/25/24 17:02 Temperature Pulse Rate 79 79 79 Pulse Rate [Left P ulse Oximeter] Respiratory Rate Blood Pressure 150/74 H Blood Pressure [Ri ght Upper Arm] Pulse Oximetry 98 97 97 Oxygen Delivery Me thod 11/25/24 17:08 11/25/24 17:15 11/25/24 17:30 Temperature 98.4 F Pulse Rate 78 75 79 Pulse Rate [Left P ulse Oximeter] Respiratory Rate 16 Blood Pressure 150/74 H Blood Pressure [Ri ght Upper Arm] Pulse Oximetry 98 98 98 Oxygen Delivery Me thod Room Air 11/25/24 17:32 11/25/24 17:45 11/25/24 18:06 Temperature 98.0 F Pulse Rate 79 79 79 Pulse Rate [Left P ulse Oximeter] Respiratory Rate 18 Blood Pressure 158/82 H 158/82 H Blood Pressure [Ri ght Upper Arm] Pulse Oximetry 98 98 97 Oxygen Delivery Me thod Room Air Course Course ED Course: She says she is typically transfused 1 unit, usually does this through the infusion center but they did not have any openings today so she was sent here instead. Will go ahead and transfuse a unit here. Feels improved after unit of blood, tolerated transfusion well. Eager to discharge. Has an appointment on Thursday, in 3 days time for recheck hemoglobin. Follow-up as planned, return as needed. Vital Signs Vital signs: Initial Vital Signs Temperature 98.6 F 11/25/24 12:54 Temperature Source Temporal Artery Scan 11/25/24 12:54 Pulse Rate 81 11/25/24 12:54 Pulse Rhythm Regular 11/25/24 12:54 Respiratory Rate 16 11/25/24 12:54 Blood Pressure 101/55 L 11/25/24 12:54 Blood Pressure Mean 70 11/25/24 12:54 Blood Pressure Position Sitting 11/25/24 12:54 Pulse Oximetry 97 11/25/24 12:54 Oxygen Delivery Method Room Air 11/25/24 12:54 Vital Signs Temperature 98.6 F 11/25/24 12:54 Pulse Rate 81 11/25/24 12:54 Respiratory Rate 16 11/25/24 12:54 Blood Pressure 101/55 L 11/25/24 12:54 Pulse Oximetry 97 11/25/24 12:54 Oxygen Delivery Method Room Air 11/25/24 12:54 Temperature 98.0 F 11/25/24 18:06 Pulse Rate 79 11/25/24 18:06 Respiratory Rate 18 11/25/24 18:06 Blood Pressure 158/82 H 11/25/24 18:06 Pulse Oximetry 97 11/25/24 18:06 Oxygen Delivery Method Room Air 11/25/24 18:06 Medical Decision Making Lab Data Labs: Lab Results 11/25/24 Range/Units 13:30 Hgb 6.4 L* (12.0-16.0) gm/dL Blood Type A Negative Antibody Screen NEGATIVE Crossmatch (AHG) See Detail Discharge Plan Discharge Clinical Impression: Acute on chronic anemia Patient Disposition: Home, Self-Care Condition: Stable Instructions: Anemia (ED) Additional Instructions: Follow-up with regular appointments, return as needed. Prescriptions: No Action Eliquis 5 mg tablet 5 mg PO BID bupropion HCl 100 mg tablet sustained-release 12 hr PO colesevelam 625 mg tablet PO bupropion HCl [Wellbutrin XL] 150 mg tablet extended release 24 hr 150 mg PO DAILY cholecalciferol (vitamin D3) 25 mcg (1,000 unit) capsule 25 mcg PO DAILY cholestyramine (with sugar) [Questran] 4 gram powder PO citalopram [Celexa] 20 mg tablet 20 mg PO DAILY cyanocobalamin (vitamin B-12) 1,000 mcg capsule 1,000 mcg PO DAILY gabapentin 300 mg capsule 600 mg PO BID Creon 12,000-38,000 -60,000 unit capsule,delayed release(DR/EC) 2 cap PO Q8H pantoprazole 40 mg tablet,delayed release (DR/EC) 40 mg PO DAILY ondansetron 4 mg tablet,disintegrating 4 mg PO Q8H PRN sirolimus 1 mg tablet 3 mg PO DAILY rosuvastatin 40 mg tablet 40 mg PO DAILY tacrolimus [Prograf] 1 mg capsule 4 mg PO Q12H topiramate [Topamax] 50 mg tablet 50 mg PO BID Follow Up/Referrals: Robert Marley MD [Primary Care Provider, Family Practice] Stand Alone Forms: [employer] Info Instructions
--- OUTSIDE RECORDS SUMMARY | 2024-11-25 13:42 | XMS_ITS | Data Portability ---
Author Organization [place] [facility] Address [address] [place] [address] Assessment No assessment recorded. Plan of Treatment Reminders Order Date Submit Date Provider Last Modified By Organization Details Last Modified Time Details Appointments None recorded. Lab urinalysis, dipstick 2022 023 [email or web address] [facility], [facility], [address], [place], [address], 16:11:55 Referral None recorded. Procedures None recorded. Surgeries None recorded. Imaging None recorded. Medication Orders sulfamethox azole 400 mg-trimetho prim 80 mg tablet 2022 023 [facility], [address], [place], [place], [id number], 17:27:36 Patient TargetsNo targets recorded. Patient InstructionsNo instructions recorded. Reason for Referral None Reported. Results Created Date Observation Date Name Description Value Unit Range Abnormal Flag Note LastModifiedBy Organization Detail LastModifiedTime 11/25/1911/24/2022 urina lysis , dipst ick Color-Status Dark Yellow Not Available [id number], [place], [address], 11/24/2022 16:10:18 11/25/19 23 11/24/2022 urina lysis , dipst ick Clarity-Stat us Clear Not Available [address], [place], [address], 11/24/2022 16:10:18 11/25/19 23 11/24/2022 urina lysis , dipst ick Glucose-Stat us Negati ve Not Available [address], [place], [address], 11/24/2022 16:10:18 11/25/19 23 11/24/2022 urina lysis , dipst ick Bilirubin-St atus Negati ve Not Available [address], [place], [address], 11/24/2022 16:10:18 11/25/19 23 11/24/2022 urina lysis , dipst ick Ketones-Stat us Negati ve Not Available [address], [place], [address], 11/24/2022 16:10:18 11/25/19 23 11/24/2022 urina lysis , dipst ick Sp [place]-Stat us >=1.03 0 Not Available [address], [place], [address], 11/24/2022 16:10:18 11/25/19 23 11/24/2022 urina lysis , dipst ick pH-Status 5.5 Not Available [address], [place], [address], 11/24/2022 16:10:18 11/25/19 23 11/24/2022 urina lysis , dipst ick Protein-Stat us >=9.0 Not Available [address], [place], [address], 11/24/2022 16:10:18 11/25/19 23 11/24/2022 urina lysis , dipst ick Urobilinogen -Status 0.2 Not Available [address], [place], [address], 11/24/2022 16:10:18 11/25/19 23 11/24/2022 urina lysis , dipst ick Nitrates-Sta tus negati ve Not Available [address], [place], [address], 11/24/2022 16:10:18 11/25/19 23 11/24/2022 urina lysis , dipst ick Blood-Status Trace Not Available [address], [place], [address], 11/24/2022 16:10:18 11/21/19 23 08/23/2022 CT, abdom en + pelvi s, w/o contr ast No observ ation record ed. [email or web address] Not Available 2022 10:59:26 12/20/19 23 11/24/2022 bladd er scan (PROC ) No observ ation record ed. [email or web address] Not Available 2022 09:38:29 Result Notes None recorded. Problems Name Problem SNOMED Code Status Onset Date Resolution Date Notes Provider Name and Address Organization Details Recorded Time Recurrent urinary tract infection 095975121 Active 023 Sasmon Brigdes MD [address] [address], [place], [address], [facility] 17:33:45 Problem Notes None recorded. Procedures Surgical History Date Name Laterality Status Provider Name and Address Organization Details Recorded Time Bladder Scan completed Chelsey[facility] 11/24/2022 16:10:10 Hernia Repair completed [place] [facility] 11/24/2022 16:09:08 Colonoscopy completed [place] [facility] 11/24/2022 16:09:18 Imaging Results None recorded. Procedure Notes None recorded. Medical Equipment None [...] Updated DateTime 11/24/2022 167.64 cm 20.7 kg/m2 60608.82 g Chelsey [place] [facility] 11/24/2022 16:06:20 Social History Question Answer Notes LastModified by Organizat ion Details LastModified Time Tobacco Smoking Status Former Smoker Chelsey [place] kim [facility] 11/24/2022 16:08:53 What Is Your Level Of Caffeine Consumption? None [email or web address] Information not available 11/24/2022 When Did You Quit Smoking? 16+yearssinc elastcigaret te [email or web address] Information not available 11/24/2022 What Was The Date Of Your Most Recent Tobacco Screening? 11/24/2022 [email or web address] Information not available 11/24/2022 Has Tobacco Cessation Counseling Been Provided? No [email or web address] Information not available 11/24/2022 Sex: Unknown Functional Status Question Answer Note LastModified by Organizat ion Details LastModified Time Do you use any illicit or recreational drugs? No [email or web address] Information not available 11/24/2022 What is your level of alcohol consumption? None [email or web address] Information not available 11/24/2022 Mental Status None recorded. Family History Relationship Description Onset Age of this Age Resolved Age Notes LastModified by Organization Details LastModified Time Father No current problems or disability [email or web address] Not available 11/24 16:08:31 Mother No current problems or disability [email or web address] Not available 11/24 16:08:31 Medical History Condition Response Diabetes N Sexually Transmitted Infection N Other N Bleeding Disorder N High Blood Pressure N Kidney Stones N High Cholesterol N GERD/Acid Reflux N Heart Disease N Cancer N Lung Disease N Depression N Gynecological HistoryNo gynecological history recorded. Obstetrics History GPAL:G 0 P 0 0 0 0 Immunizations Vaccine Type Date Status Note Provider Nam e and Address Organization Details Recorded Time Influenza, split virus, quadrivalent, preservative [facility] 17:20:22 Influenza, recombinant, quadrivalent, PF 1 [facility] 17:20:22 COVID-19, mRNA, LNP-S, PF, 30 mcg/0.3 mL dose 1 [facility] 17:20:22 COVID-19, mRNA, LNP-S, PF, 30 mcg/0.3 mL dose 1 [facility] 17:20:22 COVID-19, mRNA, LNP-S, PF, 30 mcg/0.3 mL dose 1 [facility] 17:20:22 pneumococcal conjugate PCV 7 5 [facility] 17:20:22 pneumococcal polysaccharide PPV23 3 [facility] 17:20:22 pneumococcal polysaccharide PPV23 2 completed Tiffany Montgomeryre null, [facility] 01/20/2023 17:20:22 Tdap 0 completed Tiffany Wendiejere null, [facility] 01/20/2023 17:20:23 Tdap 5 completed Tiffany Montgomeryre null, [facility] 01/20/2023 17:20:23 Pneumococcal conjugate PCV 13 6 completed Tiffany Almejere null, [facility] 01/20/2023 17:20:23 Influenza, split virus, trivalent, preservative 3 completed Tiffany Rosaurajere null, [facility] 01/20/2023 17:20:23 Influenza, split virus, trivalent, preservative 7 completed Tiffany Montgomeryre null, [facility] 01/20/2023 17:20:23 Influenza, split virus, trivalent, preservative 9 completed Tiffany Kaplanjere null, [facility] 01/20/2023 17:20:23 Novel [id number] 9 completed Tiffany Montgomeryre null, [facility] 01/20/2023 17:20:23 Td (adult), 2 Lf tetanus toxoid, preservative free, adsorbed 3 completed Tiffany Robb null, [facility] 01/20/2023 17:20:23 Hib (PRP-T) 6 completed Tiffany Wendiejere null, [facility] 01/20/2023 17:20:23 Influenza, split virus, quadrivalent, PF 1 completed Tiffany Montgomeryre null, [facility] 01/20/2023 17:20:23 Influenza, split virus, quadrivalent, PF 2 [facility] 17:20:23 Past Encounters Encounter ID Performer Location Encounter Start Date Encounter Closed Date Diagnosis/Indication Diagnosis SNOMED-CT Code Diagnosis ICD10 Code Diagnosis IMO Codes Diagnosis Note [id number] Samson Bridges MD [facility] [address] [place] [address] 11/24/2022 15:54:01 11/28/2022 14:13:38 Recurrent urinary tract infection 564037269 N39.0 - Recurrent urinary tract infections in the setting of kidney transplant and chronic immunosupp ression. She appears to be growing the same species of Klebsiella and E. coli over the past 2 years, rather than separate, new infections .-Bladder empties well. I reviewed her CT scan and there are no surgical issues.-Re commended a longer course of suppressiv e Bactrim single strength once daily for 60 days. In the future, given her immune compromise d state, she should be treated as a complicate d UTI with 14 days of culture specific antibiotic s. Health Concerns Section Related Observation LastModified by Organization Detai ls LastModified Time None Recorded Concern Status LastModified by Organization Details LastModified Time None Recorded Advance Directives Directive None Recorded Payers Insurance Date Sequence Insurance Name Policy Number Policy Lepe Covered Member ID Lepe Member ID Guarantor Name 02/08/2023 2 [place] Socrates Monzon [id number] Roxanna Monzon 02/08/2023 1 [place] [employer] Roxanna Monzon [id number] Roxanna Monzon Notes Date Note Type Note Provider Name and Address Organization Details Recorded Time 11/24/2022 text/html New patient referred for recurrent urinary tract infections. 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 She is on sirolimus and tacrolimus. Her new [place] kidneys are intact. She was having about [...] abdomen and pelvis from 08/23/2022 showing atrophic new [place] kidneys with extensive vascular calcifications but no [...] another course of antibiotics. Samson Bridges MD [address], [place], [address], [facility] 11/24/2022 17:34:18 OBGyn Episode No OBEpisode recorded.
[2024-11-25 13:49] LABS: Hemoglobin* 6.4 gm/dL (12.0-16.0)
== END 2024-11-25 18:14 | disposition home or self-care (01) ==
PROVIDERS: Emergency Provider Emergency Medicine; PCP Family Medicine
DX: D64.9 Anemia, unspecified (principal)
CPT/HCPCS: 36415; 36430; 85018; 86850; 86900; 86901; 86922; 99284; 99285; P9016

== ENCOUNTER 2025-02-10 10:28 | Emergency (ER) | payer MEDICARE, BC, SELFPAY ==
[2025-02-10] VITALS (7 sets, daily range): BP systolic 110–164; BP diastolic 58–87; PULSE 72–81; RESP 16–18; TEMP 36.7–37.6; O2SAT 97–98
--- NOTE | 2025-02-10 11:13 | ED.GENADULT ---
HPI - General Adult General Date Seen: 02/10/25 Chief complaint: Unspecified Complaint, Adult Stated complaint: Low hemoglobin Time Seen by Provider: 02/10/25 11:06 History of Present Illness HPI narrative: 59-year-old female with complex medical history including autoimmune hemolytic anemia. Baseline hemoglobin ranges been 5.8-7.5 dating back to July 2023. Most recently was 6.4 on 11/25/2024. She also has a history of GERD, coronary disease, chronic kidney disease, diabetes, depression/anxiety. She also has a history of venous thromboembolic disease (per record, previously on warfarin, now Eliquis), diastolic CHF, toe amputations, pancreas transplant done at [facility] in 2013.. Her most recent visit to the ER here was in October 2024. According to those records she had been sent to the ER with low hemoglobin. She apparently has chronic anemia requiring transfusions every few weeks. It sounds like the cause of her anemia was unclear at that time. She had been seen that day at her oncology office and [facility] and told her hemoglobin was 6 point a so they sent her to the ER for transfusion. She was hemodynamically stable. Blood pressure in the 150s over 70s. Blood type was A negative. She was transfused 1 unit of packed red cells in the ER. She has been doing well since then. She has been a month or 2 since her last transfusion. She was due for her scheduled repeat labs actually next Thursday, 4 days from now. However for the past couple of days she has been feeling more fatigued, weak, short of breath and anemic so she went to her oncologist and [facility] today to get her labs checked, early. Her labs confirm that her hemoglobin was low at 6.2 so her oncologist think she needs a transfusion today. They were unable to get her transfusion arranged through the outpatient infusion center, so she was directed come to ER. She thinks that this is a exacerbation of her chronic anemia. No other symptoms. No recent bleeding or bruising. No black or bloody stools. No recent fever. No trouble breathing. No new swelling in her legs. Related Data Home Medications ?Medication ?Instructions ?Recorded ?Confirmed citalopram 20 mg tablet (Celexa) 20 mg PO DAILY 07/14/22 02/10/25 gabapentin 300 mg capsule 600 mg PO BID 07/14/22 02/10/25 ncsjwe-[id number]-[id number](pork)12,000-38,000-60,000 2 cap PO Q8H 07/14/22 02/10/25 unit capsule,del rel (Creon) ondansetron 4 mg disintegrating 4 mg PO Q8H PRN 07/14/22 02/10/25 tablet pantoprazole 40 mg tablet,delayed 40 mg PO DAILY 07/14/22 02/10/25 release rosuvastatin 40 mg tablet 40 mg PO DAILY 07/14/22 02/10/25 tacrolimus 1 mg capsule, 4 mg PO Q12H 07/14/22 02/10/25 immediate-release (Prograf) topiramate 50 mg tablet (Topamax) 50 mg PO BID 07/14/22 02/10/25 apixaban 5 mg tablet (Eliquis) 5 mg PO BID 08/25/23 02/10/25 bupropion HCl 100 mg tablet,12 hr 100 mg PO 11/25/24 sustained-release colesevelam 625 mg tablet PO 11/25/24 Allergies Allergy/AdvReac Type Severity Reaction Status Date / Time hydromorphone (From Dilaudid) Allergy Mild Unknown Verified 02/10/25 10:59 [facility] Medical History Chronic kidney disease, stage 4 (severe) ?N18.4 - Chronic kidney disease, stage 4 (severe) (ICD-10) Diabetic ulcer of left heel associated with type 2 diabetes mellitus, with fat layer exposed ?E11.621 - Type 2 diabetes mellitus with foot ulcer (ICD-10) ?L97.422 - Non-pressure chronic ulcer of left heel and midfoot with fat layer exposed (ICD-10) Other autoimmune hemolytic anemia ?D59.19 - Other autoimmune hemolytic anemia (ICD-10) Adrenal insufficiency ?E27.40 - Unspecified adrenocortical insufficiency (ICD-10) Neurogenic orthostatic hypotension ?G90.3 - Multi-system degeneration of the autonomic nervous system (ICD-10) Acute respiratory failure with hypoxia ?J96.01 - Acute respiratory failure with hypoxia (ICD-10) Anticoagulation monitoring, INR range 2-3 ?Z79.01 - correction (current) use of anticoagulants (ICD-10) DVT of deep femoral vein ?I82.419 - Acute embolism and thrombosis of unspecified femoral vein (ICD-10) Hemolytic anemia ?D58.9 - Hereditary hemolytic anemia, unspecified (ICD-10) Acute on chronic diastolic (congestive) heart failure ?I50.33 - Acute on chronic diastolic (congestive) heart failure (ICD-10) CAD (coronary artery disease) ?I25.10 - Atherosclerotic heart disease of koi coronary artery without angina pectoris (ICD-10) Insomnia, unspecified ?G47.00 - Insomnia, unspecified (ICD-10) Mixed hyperlipidemia ?E78.2 - Mixed hyperlipidemia (ICD-10) Restless leg syndrome ?G25.81 - Restless legs syndrome (ICD-10) Vitamin D deficiency ?E55.9 - Vitamin D deficiency, unspecified (ICD-10) Hypothyroidism ?E03.9 - Hypothyroidism, unspecified (ICD-10) Depression with anxiety ?F41.8 - Other specified anxiety disorders (ICD-10) GERD (gastroesophageal reflux disease) ?K21.9 - Gastro-esophageal reflux disease without esophagitis (ICD-10) Surgical History Hx of vitrectomy ?Z98.890 - Other specified postprocedural states (ICD-10) Hx of cardiac catheterization ?Z98.890 - Other specified postprocedural states (ICD-10) Hx of hysterectomy ?Z90.710 - Acquired absence of both cervix and uterus (ICD-10) Hx of carpal tunnel repair ?Z98.890 - Other specified postprocedural states (ICD-10) History of incisional hernia repair ?Z98.890 - Other specified postprocedural states (ICD-10) ?Z87.19 - Personal history of other diseases of the digestive system (ICD-10) History of amputation of lesser toe of left foot ?Z89.422 - Acquired absence of other left toe(s) (ICD-10) Status post simultaneous kidney and pancreas transplant ?Z94.0 - Kidney transplant status (ICD-10) ?Z94.83 - Pancreas transplant status (ICD-10) Social History Smoking Status: Former smoker What tobacco products do you use: cigarettes Smoking quit date/years: >15 years ago Do you use any of these nicotine containing products: None Second hand tobacco smoke exposure: No How often do you have a drink containing alcohol: never How often do you have six or more drinks on one occasion: Never AUDIT-C Alcohol total score: 0 Non-prescribed substance use: denies use Caffeine: Yes Are you using contraception or practicing any form of control: No Exam Narrative: Exam Narrative: Constitutional: Appears well-developed and well-nourished. Alert. Conversant. Looks tired, but not acutely ?toxic. ? HENT: Head: Atraumatic. Nose: Nose normal. Mouth/Throat: Oral mucosa is clear and moist. no trismus. Pharynx normal. Tonsils symmetric. No tonsillar enlargement, erythema, or exudate. Eyes: Conjunctivae pale. EOM normal. Pupils equal, round, and reactive to light. No scleral icterus. Neck: Normal range of motion. Neck supple. No tracheal deviation present. No JVD Cardiovascular: Normal rate, regular rhythm. No gallop. No friction rub. No murmur heard. Symmetric radial artery pulses . 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 No stridor. No respiratory distress. No wheezes. No rales. No rhonchi . No tenderness. Abdominal: Soft.No distension. No mass. No tenderness. No rebound. No guarding. Musculoskeletal: RUE: Normal range of motion. No tenderness. No deformity LUE: Normal range of motion. No tenderness. No deformity RLE: Normal range of motion. No edema. No tenderness. No deformity LLE: Normal range of motion. No edema. No tenderness. No deformity Neurological: Alert and oriented to person, place, and time. Normal strength. CN II-VII intact. No sensory deficit. GCS eye subscore is 4. GCS verbal subscore is 5. GCS motor subscore is 6. Normal coordination Skin: Skin is warm and dry, pale but not mottled or diaphoretic. No rash noted. No pallor. Normal capillary refill. Psychiatric: Normal mood. Normal affect. Polite. attentively at her side and they interact well together. Const: Vital Signs, click to edit/add: Vital Signs - 24 hr 02/10/25 10:54 02/10/25 13:29 02/10/25 13:45 Temperature 99.7 F H 98.8 F 98.1 F Pulse Rate 81 72 Pulse Rate [Right Pulse Oximeter] 72 Respiratory Rate 18 18 16 Blood Pressure 146/81 H 153/79 H Blood Pressure [Ri ght Upper Arm] 110/58 L Pulse Oximetry 98 97 97 Oxygen Delivery Me thod Room Air Room Air 02/10/25 14:15 02/10/25 14:45 02/10/25 15:10 Temperature 98.3 F 98.5 F Pulse Rate 73 73 72 Pulse Rate [Right Pulse Oximeter] Respiratory Rate 16 16 16 Blood Pressure 150/84 H 164/87 H 162/87 H Blood Pressure [Ri ght Upper Arm] Pulse Oximetry 97 98 98 Oxygen Delivery Me thod Room Air Room Air Room Air Course Vital Signs Vital signs: Initial Vital Signs Temperature 99.7 F H 02/10/25 10:54 Temperature Source Temporal Artery Scan 02/10/25 10:54 Pulse Rate 72 02/10/25 10:54 Pulse Rhythm Regular 02/10/25 10:54 Pulse Strength 3+ Normal 02/10/25 10:54 Respiratory Rate 18 02/10/25 10:54 Blood Pressure 110/58 L 02/10/25 10:54 Blood Pressure Mean 75 02/10/25 10:54 Blood Pressure Position Sitting 02/10/25 10:54 Pulse Oximetry 98 02/10/25 10:54 Oxygen Delivery Method Room Air 02/10/25 10:54 Vital Signs Temperature 99.7 F H 02/10/25 10:54 Pulse Rate 72 02/10/25 10:54 Respiratory Rate 18 02/10/25 10:54 Blood Pressure 110/58 L 02/10/25 10:54 Pulse Oximetry 98 02/10/25 10:54 Oxygen Delivery Method Room Air 02/10/25 10:54 Temperature 98.5 F 02/10/25 15:10 Pulse Rate 72 02/10/25 15:10 Respiratory Rate 16 02/10/25 15:10 Blood Pressure 162/87 H 02/10/25 15:10 Pulse Oximetry 98 02/10/25 15:10 Oxygen Delivery Method Room Air 02/10/25 15:10 Medical Decision Making MDM Narrative Medical decision making narrative: Pleasant 59-year-old with a very complicated past medical history most notable for chronic anemia and chronic renal disease. She is sent to the ER today by her oncologist because of worsening symptomatic anemia. Her hemoglobin is down to 6.2 again. Her oncologist was not able to arrange an outpatient transfusion so she was sent to the ER. She is hemodynamically stable but symptomatic from anemia. She suspects that this is a an exacerbation of her chronic anemia which is thought to be due to parvo virus bone marrow suppression and also possibly due to renal insufficiency. She is not having any symptoms of any active GI, or other external bleeding. She received a unit of packed red cells today. She was actually moved from the ER to the [facility] floor to receive her transfusion because of large ER volumes.. She did not have any signs of fluid overload or allergic reaction to the transfusion and is now requesting discharge. Her labs also show renal insufficiency with a creatinine of 2.7 and a BUN of 70. These are both up from her baseline. Suspect that there due to dehydration and prerenal. She has received volume with her blood transfusions would hold off on additional IV fluids at this time. She ready has a plan in place to have her labs rechecked in 3 days with her doctor. They will recheck her hemoglobin and her kidney function at that time. Lab Data Labs: Lab Results 02/10/25 Range/Units 11:36 WBC 11.81 H (4.50-11.00) K/uL RBC 2.16 L (4.00-5.20) m/uL Hgb 6.2 L* (12.0-16.0) gm/dL Hct 19.7 L (33.0-51.0) % MCV 91 (80-100) fL MCH 29 (26-34) pg MCHC 32 (32-36) gm/dL RDW Coeff of Juanjo 16.4 H (11.5-15.5) % Plt Count 444 H (140-440) K/uL Neut % (Auto) 75.3 H (42.0-72.0) % Lymph % (Auto) 10.2 L (20-44) % [place]rie % (Auto) 12.7 H (0.0-11.0) % Eos % (Auto) 1.2 (0.0-7.0) % Baso % (Auto) 0.3 (0.0-3.0) % Neut # (Auto) 8.90 H (1.7-7.0) K/uL Lymph # (Auto) 1.20 (0.90-2.90) K/uL [place] # (Auto) 1.50 H (0.00-0.90) K/UL Eos # (Auto) 0.10 (0.00-0.50) K/uL Baso # (Auto) 0.00 (0.00-0.30) K/uL Abs Immat Gran (auto) 0.00 (0.00-0.30) K/uL Imm/Tot Granulo (auto) 0.3 % Sodium 139 (135-149) mmol/L Potassium 5.8 H (3.6-5.1) mmol/L Chloride 110 (96-114) mmol/L Carbon Dioxide 18 L (20-32) mmol/L Anion Gap 11 (7-15) mEq/L BUN 70 H (7-30) mg/dL Creatinine 2.7 H (0.5-1.5) mg/dL Estimated GFR 20 ml/min Glucose 111 (60-115) mg/dL Calcium 8.5 (8.4-10.6) mg/dL Blood Type A Negative Antibody Screen NEGATIVE Crossmatch ([facility]) See Detail Discharge Plan Discharge Clinical Impression: Anemia, Acute renal insufficiency Patient Disposition: Home, Self-Care Condition: Stable Instructions: Anemia (ED), Impaired Kidney Function (ED) Additional Instructions: Please follow-up with your doctor for repeat labs to double check your kidney function and your hemoglobin on Thursday or Thursday. Continue your your regular medications. If you have any worsening symptoms such as fever, weakness, trouble breathing, lightheadedness, bloody or black stools, or any problems, please return to the ER right away. Prescriptions: No Action Eliquis 5 mg tablet 5 mg PO BID bupropion HCl 100 mg tablet sustained-release 12 hr 100 mg PO colesevelam 625 mg tablet PO citalopram [Celexa] 20 mg tablet 20 mg PO DAILY gabapentin 300 mg capsule 600 mg PO BID Creon 12,000-38,000 -60,000 unit capsule,delayed release(DR/EC) 2 cap PO Q8H pantoprazole 40 mg tablet,delayed release (DR/EC) 40 mg PO DAILY ondansetron 4 mg tablet,disintegrating 4 mg PO Q8H PRN rosuvastatin 40 mg tablet 40 mg PO DAILY tacrolimus [Prograf] 1 mg capsule 4 mg PO Q12H topiramate [Topamax] 50 mg tablet 50 mg PO BID Follow Up/Referrals: Robert Marley MD [Primary Care Provider, Family Practice] Stand Alone Forms: [employer] Info Instructions
[2025-02-10 11:56] LABS: Hematocrit* 19.7 % (33.0-51.0); Immature Granulocytes Pct Auto 0.3 %; Lymphocytes Absolute Auto 1.20 K/uL (0.90-2.90); Mean Corpuscular HGB Conc 32 gm/dL (32-36); Mean Corpuscular Hemoglobin 29 pg (26-34); Mean Corpuscular Volume 91 fL (80-100); RDW Coefficient of Variation % 16.4 % (11.5-15.5); Red Blood Count* 2.16 m/uL (4.00-5.20); White Blood Count* 11.81 K/uL (4.50-11.00)
[2025-02-10 11:58] LABS: Immature Granulocytes Abs Auto 0.00 K/uL (0.00-0.30)
[2025-02-10 11:59] LABS: Slide Review Reflex No
[2025-02-10 12:04] LABS: Hemoglobin* 6.2 gm/dL (12.0-16.0)
[2025-02-10 12:11] LABS: Chloride* 110 mmol/L (96-114); Potassium* 5.8 mmol/L (3.6-5.1); Sodium* 139 mmol/L (135-149)
[2025-02-10 12:14] LABS: Anion Gap 11 mEq/L (7-15); Blood Urea Nitrogen* 70 mg/dL (7-30); Calcium* 8.5 mg/dL (8.4-10.6); Carbon Dioxide* 18 mmol/L (20-32); Creatinine* 2.7 mg/dL (0.5-1.5); Estimated Glomerular Filt Rate 20 ml/min; Glucose* 111 mg/dL (60-115)
--- NOTE | 2025-02-10 15:41 | PC.NURSE ---
[facility] transfusion note: Pt arrived to unit in stable condition. Tolerated infusion without issue. Handed off pt to oncoming nurse during normal saline infusion.
== END 2025-02-10 16:20 | disposition home or self-care (01) ==
LOC: ED 11:51 → MEDSURG 12:28 → ED 16:11
PROVIDERS: Emergency Provider Emergency Medicine; PCP Family Medicine
DX: D59.10 Autoimmune hemolytic anemia, unspecified (principal); E11.22 Type 2 diabetes mellitus with diabetic chronic kidney disease; N18.9 Chronic kidney disease, unspecified; Z79.01 Long term (current) use of anticoagulants; Z87.891 Personal history of nicotine dependence
CPT/HCPCS: 36415; 36430; 80048; 85025; 86850; 86900; 86901; 86922; 99284; 99285; P9016